=== PATIENT | male | born 1935 | race Caucasian/White ===

== ENCOUNTER 2018-06-09 16:19 | Inpatient (IN) | payer OTHER, MEDICARE ==
--- NOTE | 2018-06-09 17:06 | PDOC ---
Attending Attestation - Resident Resident Name: Елена Riley - ED Attending Attestation I have performed the following: I have examined & evaluated the patient, The case was reviewed & discussed with the resident, I agree w/resident's findings & plan - HPI HPI: 06/09/18 19:10 The patient is a 83 year old male, with a significant past medical history of CHF , COPD , HTN, CAD (s/p stenting x7 and pacemaker), venous insufficiency, and BPH, who presents to the emergency department with, worsening shortness of breath, diffuse edema, cough, and weight gain. Patient describes his cough as wet with associated orthopnea and difficulty sleeping. Patient is compliant with his medications. He denies any recent fevers, chills, headache or dizziness. He denies any recent nausea, vomit, diarrhea or constipation. He denies any recent chest pain. He denies any recent dysuria, frequency, urgency or hematuria. Allergies: NKDA Past surgical history: s/p stenting x7 and pacemaker. TURP, humeral fracture repair. Social History: Nonsmoker. Denies EtOH use and recreational drug use. Primary Care Physician: Dr. Rangel Extractor Filler: Dr. Bey and Dr. Claudio <Aleksandr Barkley - Last Filed: 06/09/18 19:10> - Physicial Exam PE: 06/16/18 10:22 Agree with resident exam. PAtient is tachypneic but is able to speak in complete sentences. + 2 pitting edema bilaterally. - Medical Decision Making 06/16/18 10:23 Pt presents to the ED complaining of shortness of breath and ROSAS despite compliance with diuretics. History of CHF. Most likely CHF exacerbation. Will check labs, treat with diuretics and admit to medicine. 06/16/18 11:56 <Kristin Echevarria - Last Filed: 06/16/18 11:57> Attestations - Attestations 06/09/18 19:11 Documentation prepared by Aleksandr Barkley, acting as medical staff assistant for Kristin Echevarria MD. <Aleksandr Barkley - Last Filed: 06/09/18 19:10>
--- NOTE | 2018-06-09 17:10 | PDOC ---
History of Present Illness - General Chief Complaint: Shortness of Breath Stated Complaint: FLUID RETENTION Time Seen by Provider: 06/09/18 17:02 History Source: Patient Exam Limitations: No Limitations - History of Present Illness Initial Comments: 06/09/18 17:02 This is an 83 YOM with h/o CHF (on Aldactone 25 mg), COPD (no home O2), HTN, CAD (stenting x7 and pacemaker), venous insufficiency, and BPH who p/w worsening SOB, diffuse bodily swelling, weight gain, wet cough, PND, orthopnea, and difficulty sleeping over the past few weeks. He notes that his symptoms have been worsening despite taking his normal Lasix doses adherently. He denies any fainting episodes, headache, vision changes, n/t/w focally, chest pain, abdominal pain, leg pain, or other symptoms. Past History - Past Medical History Allergies/Adverse Reactions: Allergies Allergy/AdvReac Type Severity Reaction Status Date / Time No Known Drug Allergies Allergy Verified 06/09/18 17:31 Home Medications: Ambulatory Orders Atorvastatin Ca [Lipitor] 40 mg PO HS #0 tablet 09/09/12 Docosahexanoic Acid/Epa [Fish Oil Softgel] 1 each PO DAILY #0 capsule 09/09/12 Polyethylene Glycol 3350 [Miralax 255 gm Btl -] 17 gm PO BID #0 btl 09/09/12 Sennosides/Docusate Sodium [Senna-Docusate Sodium Tab] 1 each PO BID #0 tablet 09/09/12 Insulin (Levemir) [Levemir Vial] 20 unit SQ ASDIR 04/29/18 Carvedilol [Coreg -] 6.25 mg PO BID #60 tablet 05/12/18 Doxazosin Mesylate [Cardura -] 8 mg PO HS #60 tablet 05/12/18 Ferrous Sulfate [Feosol] 325 mg PO DAILY ud 05/12/18 Losartan Potassium 50 mg PO DAILY #50 tablet 05/12/18 Rivaroxaban [Xarelto -] 20 mg PO DAILY@1800 #30 tablet 05/12/18 Silver Sulfadiazine 1% Top Cr [Silvadene -] 1 applic TP BID #1 jar 05/12/18 Mag Hydrox/Al Hydrox/Simeth [Mylanta Oral Suspension -] 30 ml PO Q6H PRN cup Furosemide [Lasix -] 40 mg PO DAILY tablet 06/16/18 Insulin Sliding Scale [Novolog Vial Sliding Scale -] 1 vial SQ ACHS units 06/16 Anemia: Yes Asthma: No Cancer: Yes (SKIN CANCER) Cardiac Disorders: Yes CVA: (? TIA) COPD: Yes (CPAP AT NIGHT) CHF: Yes Dementia: No Diabetes: Yes GI Disorders: Yes Disorders: Yes (URINARY RETENTION; BPH) HTN: Yes Hypercholesterolemia: Yes Liver Disease: No Seizures: No Thyroid Disease: No - Surgical History Abdominal Surgery: No Appendectomy: No Cardiac Surgery: Yes (stents) Cholecystectomy: No Lung Surgery: No Neurologic Surgery: No Orthopedic Surgery: Yes (Right knee sx) - Immunization History Td Vaccination: No TDAP Vaccination: No Immunization Up to Date: Yes - Suicide/Smoking/Psychosocial Hx Smoking Status: No Smoking History: Never smoked Years of Tobacco Use: 0 Have you smoked in the past 12 months: No Number of Cigarettes Smoked Daily: 0 Cigars Per Day: 0 Hx Alcohol Use: No Drug/Substance Use Hx: No Substance Use Type: None Hx Substance Use Treatment: No Review of Systems - Review of Systems Able to Perform ROS?: Yes Constitutional: No: Chills, Fever, Unexplained wgt Loss HEENTM: No: Nose Congestion, Throat Pain Respiratory: Yes: Cough, Orthopnea, Shortness of Breath, SOB at Rest, Productive cough Cardiac (ROS): Yes: Edema. No: Chest Pain, Palpitations, Syncope ABD/GI: No: Constipated, Diarrhea, Nausea, Vomiting : No: Burning, Dysuria Musculoskeletal: No: Back Pain, Neck Pain Integumentary: No: Bruising, Rash Neurological: No: Headache, Numbness, Tingling, Weakness, Dizziness Endocrine: No: Unexplained Weight Gain, Unexplained Weight Loss *Physical Exam - Vital Signs Initial Vital Signs Temp Pulse Resp BP Pulse Ox 98.7 F 61 16 127/72 100 06/09/18 16:19 06/09/18 16:19 06/09/18 16:19 06/09/18 16:19 06/09/18 16:19 06/09/18 17:16 GENERAL: nontoxic but uncomfortable appearing 2/2 shortness of breath, nourished , A/Ox4, speaking in <3 word sentences, answers questions appropriately HEENT: PERRLA, EOMI, cataract replacements noted, moist mucous membranes, no posterior pharyngeal erythema, no tonsillar swelling or exudates, no cervical lymphadenopathy NECK: No midline ttp, no spinal stepoff or deformity, full ROM, supple CARDIOVASCULAR: Regular rate and rhythm, normal S1S2, 2/6 systolic ejection murmur, no gallops or rubs, radial and DP pulses 2+ and symmetric, capillary refill <2 seconds, extremities warm and well-perfused, BLE 3+ pitting edema which extends up to the nipple line of the chest wall Chest wall: Normal appearance, no rash, no bruising, no costal stepoff or deformity, nontender to compression, edema as noted in CV section LUNGS/RESPIRATORY: Tachypnea, moderate respiratory distress, symmetric chest movements during respirations, lungs with diffuse crackles bilaterally, no cyanosis, no nail clubbing GI/ABDOMEN: Normal symmetric appearance, normoactive bowel sounds, soft, no tenderness to palpation, no midline pulsatile masses, no palpated organomegaly : No CVA tenderness, normal external appearance, no lesions BACK: No midline ttp or stepoff or deformity of thoracic or lumbar spine EXTREMITIES: distal pulses 2+, warm and well-perfused, 3+ pitting edema BLE SKIN: Warm and dry, no pallor, no jaundice, no bruising, no rash, no skin breakdown, right anterior baker skin tear which is 2x2cm NEUROLOGICAL: GCS 15, CN II-XII grossly intact, ambulating with normal gait, moving all extremities, 5/5 strength proximally and distally, no facial droop, no decreased sensation Heart Score/ECG Review #1 06/09/18 16:57 Ventricular paced rhythm, rate 60, Sgarbossa negative, otherwise unremarkable ED Treatment Course - LABORATORY CBC & Chemistry Diagram: 06/15/18 06:40 06/16/18 10:50 Medical Decision Making - Medical Decision Making Pt with h/o CHF who p/w SOB, cough, orthopnea same as their prior CHF. Initial Vital Signs Temp Pulse Resp BP Pulse Ox 98.7 F 61 16 127/72 100 06/09/18 16:19 06/09/18 16:19 06/09/18 16:19 06/09/18 16:19 06/09/18 16:19 Exam: As noted in Physical Exam section. DDX IBNLT: CHF, pulmonary edema, COPD, asthma, other lung disease, PNA/ bronchitis, anemia, ACS, pericarditis, tamponade, AD, PE, PTX, allergic reaction , malignancy (e.g. causing pericardial effusion or vascular shunt), other infection, pulmonary HTN, etc. W/U ordered: EKG CXR Labs as noted EKG: Reviewed; results as noted in ECG Review section. CXR: No acute change from study done 04/2018. Pacer in place. 06/09/18 19:24 Still awaiting chemistries which are pending in lab. Laboratory Tests 06/09/18 06/09/18 06/09/18 18:15 18:30 18:32 WBC 7.3 RBC 2.60 L Hgb 9.2 L Hct 26.7 L MCV 102.9 H MCH 35.2 H MCHC 34.2 RDW 18.4 H Plt Count 325 MPV 9.2 Absolute Neuts (auto) 6.2 Neutrophils % 85.1 H D Lymphocytes % 3.7 L D Monocytes % 8.7 Eosinophils % 2.0 Basophils % 0.5 Nucleated RBC % 0 PT with INR 20.80 H INR 1.75 H VBG pH POC VBG pCO2 POC VBG pO2 Mixed VBG HCO3 Sodium Potassium Chloride Carbon Dioxide Anion Gap BUN Creatinine Creat Clearance w eGFR Random Glucose Calcium Phosphorus Magnesium Total Bilirubin AST ALT Alkaline Phosphatase Creatine Kinase 525 H Troponin I 0.02 B-Natriuretic Peptide 1755.5 H Total Protein Albumin 06/09/18 06/09/18 18:32 18:32 WBC RBC Hgb Hct MCV MCH MCHC RDW Plt Count MPV Absolute Neuts (auto) Neutrophils % Lymphocytes % Monocytes % Eosinophils % Basophils % Nucleated RBC % PT with INR INR VBG pH 7.36 POC VBG pCO2 35.9 L POC VBG pO2 63.9 H D Mixed VBG HCO3 19.8 Sodium 130 L Potassium 4.6 Chloride 101 Carbon Dioxide 22 Anion Gap 7 L BUN 59 H Creatinine 1.7 H Creat Clearance w eGFR 38.68 Random Glucose 147 H Calcium 8.7 Phosphorus 4.3 Magnesium 2.3 Total Bilirubin 0.5 AST 64 H ALT 42 Alkaline Phosphatase 122 H Creatine Kinase Troponin I B-Natriuretic Peptide Total Protein 6.2 L Albumin 3.5 Vital Signs Temperature 98.7 F 06/09/18 16:19 Pulse Rate 61 06/09/18 18:15 Respiratory Rate 16 06/09/18 16:19 Blood Pressure 127/72 06/09/18 16:19 O2 Sat by Pulse Oximetry (%) 100 06/09/18 18:15 The Pt is unsafe for discharge at this time. They require further hospital observation, workup, and treatment. Pt needs IV meds 2/2 likely bowel edema as PO medications likely less effective. Microblog sent to [facility] for admission. Blank Decision to Admit order is placed per ED protocol. 06/09/18 21:00 I spoke with [facility] resident representative phlebotomy services, in agreement patient admitted to IP Med/Surg. Decision to Admit order corrected with Dr. Larry's name. *DC/Admit/Observation/Transfer Diagnosis at time of Disposition: JENNYFER (acute kidney injury), Cough CHF exacerbation Qualifiers: Heart failure type: combined systolic and diastolic Qualified Code(s): I50.43 - Acute on chronic combined systolic (congestive) and diastolic (congestive) heart failure - Discharge Dispostion Disposition: [facility] Condition at time of disposition: Improved Decision to Admit order: Yes - Referrals - Patient Instructions - Post Discharge Activity
[2018-06-09] MEDS ORDERED: FUROSEMIDE 40 MG/4 ML INJECTABLE VIAL IVPUSH ONE (17:53)
[2018-06-09 18:41] LABS: BASO % 0.5 % (0-2.0); HEMATOCRIT 26.7 % (35.4-49); HEMOGLOBIN 9.2 GM/dL (11.7-16.9); LYMPH % 3.7 % (8-40); MCH 35.2 pg (25.7-33.7); MCHC 34.2 g/dl (32.0-35.9); MEAN CELL VOLUME 102.9 fl (80-96); MEAN PLT VOLUME 9.2 fl (7.5-11.1); MONO % 8.7 % (3.8-10.2); NEUT % 85.1 % (42.8-82.8); PLATELET COUNT 325 K/MM3 (134-434); RDW 18.4 % (11.9-15.9); WHITE BLOOD COUNT 7.3 K/mm3 (4.0-10.0)
[2018-06-09 18:45] LABS: VENOUS PH 7.36 (7.32-7.42)
[2018-06-09 18:46] LABS: VENOUS PC02 35.9 mmHg (38-52); VENOUS PO2 63.9 mmHg (28-48)
[2018-06-09] MEDS ORDERED: FUROSEMIDE 40 MG/4 ML INJECTABLE VIAL ONE (19:02)
[2018-06-09 19:04] LABS: INR 1.75 (0.83-1.09); PROTHROMBIN TIME (PATIENT) 20.8 SEC (9.7-13.0)
[2018-06-09 19:50] LABS: N-TERMINAL BNP 1755.5 pg/ml (5-450)
[2018-06-09 19:51] LABS: ALBUMIN 3.5 g/dl (3.4-5.0); ALK PHOS 122 U/L (45-117); ANION GAP 7 MMOL/L (8-16); BILIRUBIN,TOTAL 0.5 mg/dL (0.2-1); BLOOD UREA NITROGEN 59 mg/dL (7-18); CALCIUM 8.7 mg/dL (8.5-10.1); CHLORIDE 101 mmol/L (98-107); CO2 22 mmol/L (21-32); CREATININE 1.7 mg/dL (0.55-1.3); GLUCOSE,RANDOM 147 mg/dL (74-106); MAGNESIUM 2.3 mg/dL (1.8-2.4); PHOSPHOROUS 4.3 mg/dL (2.5-4.9); POTASSIUM 4.6 mmol/L (3.5-5.1); SGOT/AST 64 U/L (15-37); SGPT/ALT 42 U/L (13-61); SODIUM 130 mmol/L (136-145); TOT PROT 6.2 g/dl (6.4-8.2)
--- NOTE | 2018-06-09 20:20 | PN ---
Teaching Attending Note Name of Resident: Capri Erickson ATTENDING PHYSICIAN STATEMENT I saw and evaluated the patient. I reviewed the resident's note and discussed the case with the resident. I agree with the resident's findings and plan as documented. SUBJECTIVE: Patient is a 83 year old man with a PMH of CHF, COPD , HTN, CAD (s/p stenting x7 and pacemaker), TURP, venous insufficiency, and BPH, who presents to the ER with worsening SOB, diffuse edema, cough, and weight gain. Patient describes his cough as wet with associated orthopnea and difficulty sleeping. Patient is compliant with his medications. He denies any recent fevers, chills, headache or dizziness. He denies any recent nausea, vomit, diarrhea or constipation. He denies any recent chest pain. He denies any recent dysuria, frequency, urgency or hematuria. OBJECTIVE: Alert and confused Vital Signs Period Temp Pulse Resp BP Sys/Kuo Pulse Ox Last 24 Hr 98.7 F 61-61 16 127/72 100-100 HEENT: No Jaundice, eye redness or discharge, PERRLA, EOMI. Edentulous; alopecia ; Normocephalic, atraumatic. External ears are normal and hearing is grossly intact. No nasal discharge. Neck: Supple, nontender. No palpable adenopathy or thyromegaly. No JVD Chest: Good effort. Clear to auscultation and percussion. Heart: Regular. No S3, rub or murmur Abdomen: Not distended, soft, nontender and no HSM. No rebound or guarding. Normoactive bowel sounds. Ext: Peripheral pulses intact. Leg edema with weeping superficial ulcers and islands of erythema from knee to ankle - nontender; left arm edema. Skin: Warm and dry. No petechiae, rash or ecchymosis. Neuro: Alert. Oriented to person. Confused with loosening of association; Sensation grossly intact in all four extremities and DTR are symmetric. Home Medications Medication Instructions Recorded Atorvastatin Ca [Lipitor] 40 mg PO HS #0 tablet 09/09/12 Docosahexanoic Acid/Epa [Fish Oil 1 each PO DAILY #0 capsule 09/09/12 Softgel] Losartan Potassium 100 mg PO DAILY #0 tablet 09/09/12 Polyethylene Glycol 3350 [Miralax 17 gm PO BID #0 btl 09/09/12 255 gm Btl -] Sennosides/Docusate Sodium 1 each PO BID #0 tablet 09/09/12 [Senna-Docusate Sodium Tab] Insulin (Levemir) [Levemir Vial] 22 unit SQ ASDIR 04/29/18 Repaglinide 0.5 mg PO DAILY 04/29/18 Atorvastatin Ca [Lipitor] 40 mg PO HS #30 tablet 05/12/18 Carvedilol [Coreg -] 6.25 mg PO BID #60 tablet 05/12/18 Doxazosin Mesylate [Cardura -] 8 mg PO HS #60 tablet 05/12/18 Ferrous Sulfate [Feosol] 325 mg PO DAILY ud 05/12/18 Furosemide [Lasix -] 20 mg PO DAILY #30 tablet 05/12/18 Losartan Potassium 50 mg PO DAILY #50 tablet 05/12/18 Ranolazine [Ranexa -] 500 mg PO BID #60 tab 05/12/18 Rivaroxaban [Xarelto -] 20 mg PO DAILY@1800 #30 tablet 05/12/18 Silver Sulfadiazine 1% Top Cr 1 applic TP BID #1 jar 05/12/18 [Silvadene -] Spironolactone [Aldactone -] 25 mg PO BID #60 tablet 05/12/18 Abnormal Lab Results 06/09/18 06/09/18 06/09/18 18:15 18:30 18:32 RBC 2.60 L Hgb 9.2 L Hct 26.7 L MCV 102.9 H MCH 35.2 H RDW 18.4 H Neutrophils % 85.1 H D Lymphocytes % 3.7 L D PT with INR 20.80 H INR 1.75 H POC VBG pCO2 POC VBG pO2 Sodium Anion Gap BUN Creatinine Random Glucose AST Alkaline Phosphatase Creatine Kinase 525 H CK-MB (CK-2) 12.7 H B-Natriuretic Peptide 1755.5 H Total Protein 06/09/18 06/09/18 18:32 18:32 RBC Hgb Hct MCV MCH RDW Neutrophils % Lymphocytes % PT with INR INR POC VBG pCO2 35.9 L POC VBG pO2 63.9 H D Sodium 130 L Anion Gap 7 L BUN 59 H Creatinine 1.7 H Random Glucose 147 H AST 64 H Alkaline Phosphatase 122 H Creatine Kinase CK-MB (CK-2) B-Natriuretic Peptide Total Protein 6.2 L ASSESSMENT AND PLAN: 1. CHF exacerbation - No significant change on his CXR. ECHO from 05/02/18 showed LVEF of 40-45%. Patient says he was not taking the diuretics as prescribed. Will treat with IVlasix 60 mg and monitor his response and increase the dose if necessary. Restrict salt intake, get daily weight, doppler scan of left arm, wound care for leg ulcers and continue duoneb and CPAP. Continue Xarelto for Afib; monitor on telemetry and rule out ACS. 2. DM - For now, we will hold the home diabetes drugs and implement sliding scale insulin regimen. Provide comprehensive diabetes care with patient teaching and counseling about the importance of euglycemia, eye care and foot care. 3. CKD? - Etiology unclear. Will consult nephrology and avoid nephrotoxic agents such as NSAIDS, aminoglycosides, contrast dyes and certain Alternative medicine products. 4. Anemia with Macrocytosis - Likely multifactorial. Will do basic anemia work up including Vit B12 and folate levels, serial stool guaiacs, reticulocyte count and iron studies. Would benefit from Procrit therapy once iron replete. 5. DVT prophylaxis - Heparin 5000u sq tid. 6. Advance directives - Full code
--- NOTE | 2018-06-09 22:45 | HP ---
CHIEF COMPLAINT: shortness of breath PCP:Dr. Rangel HISTORY OF PRESENT ILLNESS: Patient is an 83 year old male with past medical history of CHF, COPD, HTN, HLD , CAD (s/p stenting x7 and pacemaker), Atrial Fibrillation, DM, chronic venous insufficiency, BPH and anemia, presented with worsening shortness of breath, diffuse edema, productive cough and weight gain for a few weeks. Patient reports that he has not been taking the medications as prescribed for him at the custodial since he was discharged in May. Patient denies fever, chills, headache, dizziness, abdominal pain, dirrhea or constipation. ER course was notable for: (1)Hgb 9.2 Hct 26.7 (2)BUN 59, Cr 1.7 (3)CK 525, Trop 0.02, BNP 1755.5 (4)Lasix 40mg IV once Recent Travel:denies any recent travel PAST MEDICAL HISTORY: CHF COPD HTN HLD CAD (s/p stenting x7 and pacemaker) Atrial Fibrillation DM chronic venous insufficiency BPH anemia PAST SURGICAL HISTORY: Social History: Smoking:denies smoking Alcohol:occasional EtOH use Drugs: denies illicit drug use Family History: Allergies No Known Drug Allergies Allergy (Verified 06/09/18 17:31) HOME MEDICATIONS: Home Medications Medication Instructions Recorded Atorvastatin Ca [Lipitor] 40 mg PO HS #0 tablet 09/09/12 Docosahexanoic Acid/Epa [Fish Oil 1 each PO DAILY #0 capsule 09/09/12 Softgel] Losartan Potassium 100 mg PO DAILY #0 tablet 09/09/12 Polyethylene Glycol 3350 [Miralax 17 gm PO BID #0 btl 09/09/12 255 gm Btl -] Sennosides/Docusate Sodium 1 each PO BID #0 tablet 09/09/12 [Senna-Docusate Sodium Tab] Insulin (Levemir) [Levemir Vial] 22 unit SQ ASDIR 04/29/18 Repaglinide 0.5 mg PO DAILY 04/29/18 Atorvastatin Ca [Lipitor] 40 mg PO HS #30 tablet 05/12/18 Carvedilol [Coreg -] 6.25 mg PO BID #60 tablet 05/12/18 Doxazosin Mesylate [Cardura -] 8 mg PO HS #60 tablet 05/12/18 Ferrous Sulfate [Feosol] 325 mg PO DAILY ud 05/12/18 Furosemide [Lasix -] 20 mg PO DAILY #30 tablet 05/12/18 Losartan Potassium 50 mg PO DAILY #50 tablet 05/12/18 Ranolazine [Ranexa -] 500 mg PO BID #60 tab 05/12/18 Rivaroxaban [Xarelto -] 20 mg PO DAILY@1800 #30 tablet 05/12/18 Silver Sulfadiazine 1% Top Cr 1 applic TP BID #1 jar 05/12/18 [Silvadene -] Spironolactone [Aldactone -] 25 mg PO BID #60 tablet 05/12/18 REVIEW OF SYSTEMS CONSTITUTIONAL: Absent: fever, chills, diaphoresis, generalized weakness, malaise, loss of appetite, weight change HEENT: Absent: rhinorrhea, nasal congestion, throat pain, throat swelling, difficulty swallowing, mouth swelling, ear pain, eye pain, visual changes CARDIOVASCULAR: Absent: chest pain, syncope, palpitations, irregular heart rate, lightheadedness , peripheral edema RESPIRATORY: cough, shortness of breath,orthopnea Absent: wheezing, stridor, hemoptysis, dyspnea with exertion GASTROINTESTINAL: abdominal distension Absent: abdominal pain,nausea, vomiting, diarrhea, constipation, melena, hematochezia GENITOURINARY: Absent: dysuria, frequency, urgency, hesitancy, hematuria, flank pain, genital pain MUSCULOSKELETAL: Absent: myalgia, arthralgia, joint swelling, back pain, neck pain SKIN: Absent: rash, itching, pallor HEMATOLOGIC/IMMUNOLOGIC: Absent: easy bleeding, easy bruising, lymphadenopathy, frequent infections ENDOCRINE: Absent: unexplained weight gain, unexplained weight loss, heat intolerance, cold intolerance NEUROLOGIC: Absent: headache, focal weakness or paresthesias, dizziness, unsteady gait, seizure, mental status changes, bladder or bowel incontinence PSYCHIATRIC: Absent: anxiety, depression, suicidal or homicidal ideation, hallucinations. PHYSICAL EXAMINATION Vital Signs - 24 hr 06/09/18 06/09/18 06/09/18 16:19 17:50 18:15 Temperature 98.7 F Pulse Rate 61 61 Respiratory 16 Rate Blood Pressure 127/72 O2 Sat by Pulse 100 100 100 Oximetry (%) 06/09/18 22:22 Temperature Pulse Rate Respiratory Rate Blood Pressure O2 Sat by Pulse 98 Oximetry (%) GENERAL: Awake, alert, and fully oriented, in no acute distress. HEAD: Normal with no signs of trauma. EYES: PERRLA, EOMI, sclera anicteric, conjunctiva clear. No lid lag. EARS, NOSE, THROAT: Ears normal, nares patent, oropharynx clear without exudates. Moist mucous membranes. NECK: Normal range of motion, supple without lymphadenopathy, JVD, or masses. LUNGS: Breath sounds equal, clear to auscultation bilaterally. No wheezes, and no crackles. No accessory muscle use. HEART: Regular rate and rhythm, normal S1 and S2 without murmur, rub or gallop. ABDOMEN: Soft, nontender, mildly distended, normoactive bowel sounds, no guarding, no rebound, no masses. MUSCULOSKELETAL: Normal range of motion at all joints. No bony deformities or tenderness. No CVA tenderness. UPPER EXTREMITIES: 2+ pulses, warm, well-perfused. No cyanosis. No clubbing. No peripheral edema. LOWER EXTREMITIES: 2+ pulses, warm, well-perfused. No calf tenderness. +2 bilateral pitting edema. +erythema on both lower legs with weeping. NEUROLOGICAL: Cranial nerves II-XII intact. Normal speech. Gait not observed. PSYCHIATRIC: Cooperative. Good eye contact. Appropriate mood and affect. SKIN: Warm, dry, normal turgor, no rashes or lesions noted, normal capillary refill. Laboratory Results - last 24 hr 06/09/18 06/09/18 06/09/18 18:15 18:30 18:32 WBC 7.3 RBC 2.60 L Hgb 9.2 L Hct 26.7 L MCV 102.9 H MCH 35.2 H MCHC 34.2 RDW 18.4 H Plt Count 325 MPV 9.2 Absolute Neuts (auto) 6.2 Neutrophils % 85.1 H D Lymphocytes % 3.7 L D Monocytes % 8.7 Eosinophils % 2.0 Basophils % 0.5 Nucleated RBC % 0 PT with INR 20.80 H INR 1.75 H VBG pH POC VBG pCO2 POC VBG pO2 Mixed VBG HCO3 Sodium Potassium Chloride Carbon Dioxide Anion Gap BUN Creatinine Creat Clearance w eGFR Random Glucose Calcium Phosphorus Magnesium Total Bilirubin AST ALT Alkaline Phosphatase Creatine Kinase 525 H Creatine Kinase Index 2.4 CK-MB (CK-2) 12.7 H Troponin I 0.02 B-Natriuretic Peptide 1755.5 H Total Protein Albumin 06/09/18 06/09/18 18:32 18:32 WBC RBC Hgb Hct MCV MCH MCHC RDW Plt Count MPV Absolute Neuts (auto) Neutrophils % Lymphocytes % Monocytes % Eosinophils % Basophils % Nucleated RBC % PT with INR INR VBG pH 7.36 POC VBG pCO2 35.9 L POC VBG pO2 63.9 H D Mixed VBG HCO3 19.8 Sodium 130 L Potassium 4.6 Chloride 101 Carbon Dioxide 22 Anion Gap 7 L BUN 59 H Creatinine 1.7 H Creat Clearance w eGFR 38.68 Random Glucose 147 H Calcium 8.7 Phosphorus 4.3 Magnesium 2.3 Total Bilirubin 0.5 AST 64 H ALT 42 Alkaline Phosphatase 122 H Creatine Kinase Creatine Kinase Index CK-MB (CK-2) Troponin I B-Natriuretic Peptide Total Protein 6.2 L Albumin 3.5 ASSESSMENT/PLAN: Patient is an 83 year old male with past medical history of CHF, COPD, HTN, HLD , CAD (s/p stenting x7 and pacemaker), DM, chronic venous insufficiency, BPH, Skin cancer and anemia, presented with worsening shortness of breath, diffuse edema, productive cough and weight gain for a few weeks. #SOB, leg swelling, weight gain: likely 2/2 CHF exacerbation -IV Lasix 60mg daily -Monitor I&O -Daily weights -Resume Aldactone 25mg BID #JENNYFER on CKD -Nephrology consulted. -Avoid nephrotoxic agents such as NSAIDs, aminoglycosides, and contrast dyes #Anemia -will do basic anemia workup -VitB12, Folate, FOBT, Retic count, iron studies #DM -Resume Levemir 22units HS -BGM ACHS -ISS ACHS #Hypertension -Continue Coreg 6.25 BID, Losartan 50mg daily #Hyperlipidemia -continue Atovastatin 40mg HS #CAD s/p stenting x7 and pacemaker -continue Lipitor 40, Ranexa 500 mg BID #Atrial fibrillation -Continue Xarelto 20mg BID #BPH -resume Cardura 8mg #FEN -Not on any standing fluids -Hyponatremia, will monitor bmp -diabetic/sodium restricted diet #Prophylaxis -on Xarelto 20mg, will verify -SCDs, TEDs #Disposition -full code -admit to med surg Visit type - Emergency Visit Emergency Visit: Yes ED Registration Date: 06/09/18 Care time: The patient presented to the Emergency Department on the above date and was hospitalized for further evaluation of their emergent condition. - New Patient This patient is new to me today: Yes Date on this admission: 06/10/18 - Critical Care Critical Care patient: No
[2018-06-10] MEDS: INSULIN SLIDING SCALE (NOVOLOG) 1 VIAL SQ SCH ×4 (06:04→22:17)
[2018-06-10] MEDS: REPAGLINIDE 0.5 MG TABLET (FP) PO SCH ×2 (06:06→06:09)
[2018-06-10 07:59] LABS: BASO % 0.7 % (0-2.0); EOS % 3.7 % (0-4.5); HEMATOCRIT 25.4 % (35.4-49); HEMOGLOBIN 8.5 GM/dL (11.7-16.9); LYMPH % 4.8 % (8-40); MCH 34.7 pg (25.7-33.7); MCHC 33.7 g/dl (32.0-35.9); MEAN CELL VOLUME 103.2 fl (80-96); MEAN PLT VOLUME 8.9 fl (7.5-11.1); MONO % 8.4 % (3.8-10.2); NEUT % 82.4 % (42.8-82.8); PLATELET COUNT 288 K/MM3 (134-434); RBC 2.46 M/mm3 (4.00-5.60); RDW 17.9 % (11.9-15.9); WHITE BLOOD COUNT 6.8 K/mm3 (4.0-10.0)
[2018-06-10] MEDS ORDERED: PNEUMOC 13-VAL CONJ-DIP CRM/PF 0.5 ML DISP.SYRIN IM ONE (09:00)
[2018-06-10 09:02] LABS: ALBUMIN 3.2 g/dl (3.4-5.0); ALK PHOS 108 U/L (45-117); ANION GAP 9 MMOL/L (8-16); BILIRUBIN,TOTAL 0.6 mg/dL (0.2-1); BLOOD UREA NITROGEN 61 mg/dL (7-18); CALCIUM 8.3 mg/dL (8.5-10.1); CHLORIDE 101 mmol/L (98-107); CO2 22 mmol/L (21-32); CREATININE 1.5 mg/dL (0.55-1.3); GLUCOSE,RANDOM 130 mg/dL (74-106); MAGNESIUM 2.5 mg/dL (1.8-2.4); PHOSPHOROUS 4.1 mg/dL (2.5-4.9); POTASSIUM 4.7 mmol/L (3.5-5.1); SGOT/AST 57 U/L (15-37); SGPT/ALT 36 U/L (13-61); SODIUM 131 mmol/L (136-145); TOT PROT 5.9 g/dl (6.4-8.2)
[2018-06-10] MEDS ORDERED: FLU VACCINE QUAD 60 MCG/0.5 ML (MDV 18-19) IM ONE (09:30)
[2018-06-10] MEDS ORDERED: SILVER SULFADIAZINE 1% TOP CREAM 400 GM JAR TP SCH (10:00)
[2018-06-10] MEDS ORDERED: CARVEDILOL 6.25 MG TABLET (FP) PO SCH (10:00)
[2018-06-10] MEDS: POLYETHYLENE GLYCOL 3350 255 GM BTL PO SCH ×2 (12:00→22:17)
[2018-06-10] MEDS: RANOLAZINE E.R. 500 MG TABLET (FP) PO SCH ×2 (12:13→21:43)
[2018-06-10] MEDS: FUROSEMIDE 40 MG/4 ML INJECTABLE VIAL IVPUSH SCH (12:14)
[2018-06-10] MEDS: FERROUS SO4 325 MG TABLET (FP) PO SCH (12:14)
[2018-06-10] MEDS: SENNOSIDES/DOCUSATE COMBO (SENNA PLUS) TABLET (UD) PO SCH ×2 (12:14→21:44)
[2018-06-10] MEDS: LOSARTAN POTASSIUM 50 MG TABLET (FP) PO SCH (12:14)
[2018-06-10] MEDS: SPIRONOLACTONE 25 MG TABLET (FP) PO SCH ×2 (12:15→21:44)
[2018-06-10] MEDS: OMEGA-3 ACID ETHYL ESTERS (FATTY-ACIDS) 1 GM CAPSULE (FP) PO SCH (12:16)
--- NOTE | 2018-06-10 12:49 | PN ---
Progress Note (short form) - Note Progress Note: c/o heartburn. states breathing is better but is still difficult to breathe. denies Cp, SOB, fever, chills, N/V/C/D, orthopnea Current Medications Generic Name Dose Route Start Last Admin Trade Name Ethan PRN Reason Stop Dose Admin Atorvastatin Calcium 40 mg 06/10/18 22:00 Lipitor - PO HS AYDIN Carvedilol 6.25 mg 06/10/18 10:00 06/10/18 12:14 Coreg - PO 6.25 mg BID AYDIN Administration Doxazosin Mesylate 8 mg 06/10/18 22:00 Cardura - PO HS AYDIN Ferrous Sulfate 325 mg 06/10/18 10:00 06/10/18 12:14 Feosol - PO 325 mg DAILY AYDIN Administration Furosemide 60 mg 06/10/18 10:00 06/10/18 12:14 Lasix Injection - IVPUSH 60 mg DAILY AYDIN Administration Insulin Aspart 1 vial 06/10/18 07:00 06/10/18 12:12 Novolog Vial Sliding Scale - SQ 2 units ACHS AYDIN Administration Protocol Insulin Detemir 22 units 06/10/18 22:00 Levemir Vial SQ HS AYDIN Losartan Potassium 50 mg 06/10/18 10:00 06/10/18 12:14 Cozaar - PO 50 mg DAILY AYDIN Administration Hvmch-2-Btgl Ethyl Esters 1 gm 06/10/18 10:00 06/10/18 12:16 Lovaza - PO 1 gm DAILY AYDIN Administration Polyethylene Glycol 17 gm 06/10/18 10:00 Miralax (For Bowel Prep) - PO BID [facility] Ranolazine 500 mg 06/10/18 10:00 06/10/18 12:13 Ranexa - PO 500 mg BID AYDIN Administration Repaglinide 0.5 mg 06/10/18 07:00 06/10/18 06:09 Prandin - PO 0.5 mg DAILY@0700 AYDIN Administration Rivaroxaban 20 mg 06/10/18 18:00 Xarelto - PO DAILY@1800 [facility] Senna/Docusate Sodium 1 tablet 06/10/18 10:00 06/10/18 12:14 Pericolace - PO 1 tablet BID AYDIN Administration Silver Sulfadiazine 1 applic 06/10/18 10:00 Silvadene - TP BID [facility] Spironolactone 25 mg 06/10/18 10:00 06/10/18 12:15 Aldactone - PO 25 mg BID AYDIN Administration Last Vital Signs Temp Pulse Resp BP Pulse Ox 97.6 F 62 18 128/68 98 06/10/18 06:00 06/10/18 12:00 06/10/18 12:00 06/10/18 12:00 06/10/18 02:02 Intake & Output 06/07/18 06/08/18 06/09/18 06/10/18 23:59 23:59 23:59 23:59 Intake Total 200 Balance 200 Weight 167 lb 166 lb 2 oz General NAD CV S1 S2 irregular Lungs decreased breath sounds B/L bases ABdomen soft NT/ND Extremities 1+ pitting edema B/L LE CBCD WBC 6.8 K/mm3 (4.0-10.0) 06/10/18 06:15 RBC 2.46 M/mm3 (4.00-5.60) L 06/10/18 06:15 Hgb 8.5 GM/dL (11.7-16.9) L 06/10/18 06:15 Hct 25.4 % (35.4-49) L 06/10/18 06:15 MCV 103.2 fl (80-96) H 06/10/18 06:15 MCHC 33.7 g/dl (32.0-35.9) 06/10/18 06:15 RDW 17.9 % (11.9-15.9) H 06/10/18 06:15 Plt Count 288 K/MM3 (134-434) 06/10/18 06:15 MPV 8.9 fl (7.5-11.1) 06/10/18 06:15 CMP Sodium 131 mmol/L (136-145) L 06/10/18 06:15 Potassium 4.7 mmol/L (3.5-5.1) 06/10/18 06:15 Chloride 101 mmol/L (98-107) 06/10/18 06:15 Carbon Dioxide 22 mmol/L (21-32) 06/10/18 06:15 Anion Gap 9 MMOL/L (8-16) 06/10/18 06:15 BUN 61 mg/dL (7-18) H 06/10/18 06:15 Creatinine 1.5 mg/dL (0.55-1.3) H 06/10/18 06:15 Creat Clearance w eGFR 44.69 (>60) 06/10/18 06:15 Calcium 8.3 mg/dL (8.5-10.1) L 06/10/18 06:15 Total Bilirubin 0.6 mg/dL (0.2-1) 06/10/18 06:15 AST 57 U/L (15-37) H 06/10/18 06:15 ALT 36 U/L (13-61) 06/10/18 06:15 Alkaline Phosphatase 108 U/L (45-117) 06/10/18 06:15 Total Protein 5.9 g/dl (6.4-8.2) L 06/10/18 06:15 Albumin 3.2 g/dl (3.4-5.0) L 06/10/18 06:15 A/P 83yo M with PMH systolic CHF, COPD not on home O2, WILLIS on cpap, CAD s/p stents, HTN, S/p PPM, BPH s/p TURP, afib on xarelto presented to the Er wtih progressively worsening SOB with cough and orthopnea and found to be in acute on chronic systolic CHF 1. Acute on Chronic Systolic CHF-no significant change in weight. cont lasix 60mg, aldactone, coreg, statin. daily weight. monitor electrolytes. recent echo noted. no indication to repeat it at this time 2. Dyspepsia- start mylanta prn 3. JENNYFER- likely pre-renal. slowly improving. cont diuresis. avoid nephrotoxic agents 4. COPD- no sign of acute exacerbation 5. CAD s/p stents- cont ranexa/asa 6. HTN- controlled. cont home regimen 7. DM- cont levemir, iss, bgm 8. S/p PPM 9. BPH s/p TURP 10. Afib on xarelto- rate controlled. on xarelto 11. DVT ppx- xarelto Visit type - Emergency Visit Emergency Visit: Yes ED Registration Date: 06/09/18 Care time: The patient presented to the Emergency Department on the above date and was hospitalized for further evaluation of their emergent condition. - New Patient This patient is new to me today: Yes Date on this admission: 06/09/18 - Critical Care Critical Care patient: No - Discharge Referral Referred to [facility] Med P.C.: No
[2018-06-10] MEDS ORDERED: PT OWN MED DRAWER 7, Y5N ONE (15:52)
[2018-06-10] MEDS: MAG HYDROX/AL HYDROX/SIMETH 30 ML UNIT-DOSE CUP PO PRN (15:54)
[2018-06-10] MEDS: RIVAROXABAN 20 MG TABLET PO SCH (17:05)
--- NOTE | 2018-06-10 17:05 | EKG ---
Test Reason : Blood Pressure : / mmHG Vent. Rate : 060 BPM Atrial Rate : 064 BPM P-R Int : 000 ms QRS Dur : 162 ms QT Int : 544 ms P-R-T Axes : 000 266 134 degrees QTc Int : 544 ms UNDERLYING RHYTHM APPEARS TO BE ATYPICAL ATRIAL FLUTTER WITH Ventricular-paced rhythm ABNORMAL ECG WHEN COMPARED WITH ECG OF 29-APR-2018 07:47, NO SIGNIFICANT CHANGE WAS FOUND Confirmed by PITA ARANDA, TOM ([id number] on 06/10/2018 5:05:32 PM Referred By: Confirmed By:TOM LEMA MD
[2018-06-10] MEDS: CARVEDILOL 6.25 MG TABLET (FP) PO SCH (20:15)
[2018-06-10] MEDS: ATORVASTATIN CA 40 MG TABLET (FP) PO SCH (21:44)
[2018-06-10] MEDS: SILVER SULFADIAZINE 1% TOP CREAM 400 GM JAR TP SCH (21:45)
[2018-06-10 21:59] LABS: URINE APPEARANCE CLEAR; URINE BILIRUBIN NEGATIVE (<2.0 mg/dL); URINE COLOR LTYELLOW; URINE GLUCOSE (UA) NEGATIVE (NEGATIVE); URINE KETONE NEGATIVE (NEGATIVE); URINE LEUK ESTERASE NEGATIVE (NEGATIVE); URINE NITRITE NEGATIVE (NEGATIVE); URINE PROTEIN NEGATIVE (NEGATIVE); URINE UROBILINOGEN NEGATIVE mg/dL (0.2-1.0)
[2018-06-10] MEDS: INSULIN (LEVEMIR) 100 UNITS/ML UNITS SQ SCH (22:16)
[2018-06-10] MEDS: DOXAZOSIN MESYLATE 4 MG TABLET PO SCH (22:56)
[2018-06-11] MEDS: INSULIN SLIDING SCALE (NOVOLOG) 1 VIAL SQ SCH ×4 (06:13→21:32)
[2018-06-11] MEDS: REPAGLINIDE 0.5 MG TABLET (FP) PO SCH (06:14)
[2018-06-11 06:36] LABS: SERUM IRON SATURATION 9 % (15-55); TOTAL IRON BINDING CAPACITY 278 ug/dL (250-450); UIBC 254 ug/dL (111-343)
[2018-06-11 06:55] LABS: HEMATOCRIT 25.1 % (35.4-49); HEMOGLOBIN 8.4 GM/dL (11.7-16.9); MCH 34.8 pg (25.7-33.7); MCHC 33.5 g/dl (32.0-35.9); MEAN CELL VOLUME 103.9 fl (80-96); MEAN PLT VOLUME 8.7 fl (7.5-11.1); PLATELET COUNT 283 K/MM3 (134-434); RBC 2.42 M/mm3 (4.00-5.60); RDW 18.4 % (11.9-15.9); WHITE BLOOD COUNT 5.8 K/mm3 (4.0-10.0)
[2018-06-11 08:03] LABS: ANION GAP 5 MMOL/L (8-16); BLOOD UREA NITROGEN 55 mg/dL (7-18); CALCIUM 8.6 mg/dL (8.5-10.1); CHLORIDE 106 mmol/L (98-107); CO2 24 mmol/L (21-32); CREATININE 1.2 mg/dL (0.55-1.3); GLUCOSE,RANDOM 60 mg/dL (74-106); SODIUM 135 mmol/L (136-145)
[2018-06-11] MEDS ORDERED: PT OWN MED DRAWER 7, Y5N ONE (08:46)
[2018-06-11] MEDS: CARVEDILOL 6.25 MG TABLET (FP) PO SCH ×2 (09:00→19:41)
[2018-06-11] MEDS: OMEGA-3 ACID ETHYL ESTERS (FATTY-ACIDS) 1 GM CAPSULE (FP) PO SCH (09:04)
[2018-06-11] MEDS: RANOLAZINE E.R. 500 MG TABLET (FP) PO SCH ×2 (09:04→21:21)
[2018-06-11] MEDS: FERROUS SO4 325 MG TABLET (FP) PO SCH (09:04)
[2018-06-11] MEDS: POLYETHYLENE GLYCOL 3350 255 GM BTL PO SCH ×2 (09:04→21:21)
[2018-06-11] MEDS: SENNOSIDES/DOCUSATE COMBO (SENNA PLUS) TABLET (UD) PO SCH ×2 (09:04→21:20)
[2018-06-11] MEDS: SPIRONOLACTONE 25 MG TABLET (FP) PO SCH ×2 (10:49→21:21)
[2018-06-11] MEDS: LOSARTAN POTASSIUM 50 MG TABLET (FP) PO SCH (10:50)
[2018-06-11] MEDS: FUROSEMIDE 40 MG/4 ML INJECTABLE VIAL IVPUSH SCH (10:50)
[2018-06-11] MEDS ORDERED: INSULIN (NOVOLOG) ASPART 100 UNITS/ML 10ML VIAL ONE (10:59)
[2018-06-11] MEDS: MAG HYDROX/AL HYDROX/SIMETH 30 ML UNIT-DOSE CUP PO PRN (11:13)
--- NOTE | 2018-06-11 15:08 | PN ---
Teaching Attending Note Name of Resident: Elijah Petersen ATTENDING PHYSICIAN STATEMENT I saw and evaluated the patient. I reviewed the resident's note and discussed the case with the resident. I agree with the resident's findings and plan as documented. SUBJECTIVE:remains dyspnic at rest. denie CP, SOB, fever, chills, N/V/C/D OBJECTIVE: Last Vital Signs Temp Pulse Resp BP Pulse Ox 97.5 F L 6 L 21 H 109/51 L 97 06/11/18 14:46 06/11/18 14:46 06/11/18 14:46 06/11/18 14:46 06/10/18 23:15 Intake & Output 06/08/18 06/09/18 06/10/18 06/11/18 23:59 23:59 23:59 23:59 Intake Total 600 Output Total 1150 1100 Balance -550 -1100 Weight 167 lb 166 lb 2 oz 196 lb 0.7 oz General NAD Lungs decreased breath sounds B/L bases extremities 1+ pitting edema B/L LE ASSESSMENT AND PLAN: 83yo M with PMH systolic CHF, COPD not on home O2, WILLIS on cpap, CAD s/p stents , HTN, S/p PPM, BPH s/p TURP, afib on xarelto presented to the Er wtih progressively worsening SOB with cough and orthopnea and found to be in acute on chronic systolic CHF 1. Acute on Chronic Systolic CHF- weight increased dramatically from yesterday however this may be more accurate weight as more consistent with previous weights. weight at last discharge was 192. will cont lasix 60mg IV daily and monitor. hard to assess from patient how much is improved as he goes on long tangential stories. no significant change in weight. cont lasix 60mg, aldactone , coreg, statin. daily weight. monitor electrolytes. recent echo noted. no indication to repeat it at this time 2. Dyspepsia- start mylanta prn 3. JENNYFER- likely pre-renal. slowly improving. cont diuresis. avoid nephrotoxic agents 4. COPD- no sign of acute exacerbation 5. CAD s/p stents- cont ranexa/asa 6. HTN- controlled. cont home regimen 7. DM- cont levemir, iss, bgm 8. S/p PPM 9. BPH s/p TURP 10. Afib on xarelto- rate controlled. on xarelto 11. DVT ppx- xarelto
[2018-06-11] MEDS: SILVER SULFADIAZINE 1% TOP CREAM 400 GM JAR TP SCH ×2 (15:31→21:22)
--- NOTE | 2018-06-11 15:54 | PN ---
Physical Exam: SUBJECTIVE: Patient seen and examined at bedside. denies cp, n/v/d/f/c. Still complains of same amount of peripheral edema, more in L arm than R arm and in both legs OBJECTIVE: Vital Signs Period Temp Pulse Resp BP Sys/Kuo Pulse Ox Last 24 Hr 97.4 F-98 F 6-72 17-21 100-153/51-76 97-97 GENERAL: A&Ox2, no acute distress EYES: PERRLA, EOMI ENT: Moist mucus membranes NECK: No JVD noted LUNGS: overall lungs are clear with minimal sporadic crackles HEART: systolic murmur noted on exam, no murmurs ABDOMEN: Soft, nontender, BS present MUSCULOSKELETAL: No CVA Tenderness EXTREMITIES: 2+ pulses, 2+ pitting/weeping edema b/l lower extremities and L arm Laboratory Results - last 24 hr 06/10/18 06/10/18 06/10/18 06:15 06:15 16:06 WBC RBC Hgb Hct MCV MCH MCHC RDW Plt Count MPV Sodium 131 L Potassium 4.7 Chloride 101 Carbon Dioxide 22 Anion Gap 9 BUN 61 H Creatinine 1.5 H Creat Clearance w eGFR 44.69 POC Glucometer 223 Random Glucose 130 H Calcium 8.3 L Phosphorus 4.1 Magnesium 2.5 H Iron 24 L TIBC 278 Iron Saturation 9 L Total Bilirubin 0.6 AST 57 H ALT 36 Alkaline Phosphatase 108 Creatine Kinase 328 H Creatine Kinase Index 3.0 CK-MB (CK-2) 9.9 H Troponin I 0.03 Total Protein 5.9 L Albumin 3.2 L Serum Folate 18 H Urine Color Urine Appearance Urine pH Ur Specific Pearson Urine Protein Urine Glucose (UA) Urine Ketones Urine Blood Urine Nitrite Urine Bilirubin Urine Urobilinogen Ur Leukocyte Esterase 06/10/18 06/10/18 06/11/18 21:20 22:12 05:31 WBC RBC Hgb Hct MCV MCH MCHC RDW Plt Count MPV Sodium Potassium Chloride Carbon Dioxide Anion Gap BUN Creatinine Creat Clearance w eGFR POC Glucometer 222 86 Random Glucose Calcium Phosphorus Magnesium Iron TIBC Iron Saturation Total Bilirubin AST ALT Alkaline Phosphatase Creatine Kinase Creatine Kinase Index CK-MB (CK-2) Troponin I Total Protein Albumin Serum Folate Urine Color Ltyellow Urine Appearance Clear Urine pH 5.0 D Ur Specific Pearson 1.010 Urine Protein Negative Urine Glucose (UA) Negative Urine Ketones Negative Urine Blood Negative Urine Nitrite Negative Urine Bilirubin Negative Urine Urobilinogen Negative Ur Leukocyte Esterase Negative 06/11/18 06/11/18 06/11/18 06:00 06:00 11:14 WBC 5.8 RBC 2.42 L Hgb 8.4 L Hct 25.1 L MCV 103.9 H MCH 34.8 H MCHC 33.5 RDW 18.4 H Plt Count 283 MPV 8.7 Sodium 135 L Potassium 5.0 Chloride 106 Carbon Dioxide 24 Anion Gap 5 L BUN 55 H Creatinine 1.2 Creat Clearance w eGFR 57.82 POC Glucometer 151 Random Glucose 60 L Calcium 8.6 Phosphorus Magnesium Iron TIBC Iron Saturation Total Bilirubin AST ALT Alkaline Phosphatase Creatine Kinase Creatine Kinase Index CK-MB (CK-2) Troponin I Total Protein Albumin Serum Folate Urine Color Urine Appearance Urine pH Ur Specific Pearson Urine Protein Urine Glucose (UA) Urine Ketones Urine Blood Urine Nitrite Urine Bilirubin Urine Urobilinogen Ur Leukocyte Esterase Active Medications Generic Name Dose Route Start Last Admin Trade Name Freq PRN Reason Stop Dose Admin Al Hydroxide/Mg Hydroxide 30 ml 06/10/18 15:01 06/11/18 11:13 Mylanta Oral Suspension - PO 30 ml Q6H PRN Administration DYSPEPSIA Atorvastatin Calcium 40 mg 06/10/18 22:00 06/10/18 21:44 Lipitor - PO 40 mg HS AYDIN Administration Carvedilol 6.25 mg 06/10/18 13:21 06/11/18 09:00 Coreg - PO 6.25 mg BID@0800,2000 AYDIN Administration Doxazosin Mesylate 8 mg 06/10/18 22:00 06/10/18 22:56 Cardura - PO 8 mg HS AYDIN Administration Ferrous Sulfate 325 mg 06/10/18 10:00 06/11/18 09:04 Feosol - PO 325 mg DAILY AYDIN Administration Furosemide 60 mg 06/10/18 10:00 06/11/18 10:50 Lasix Injection - IVPUSH 60 mg DAILY AYDIN Administration Insulin Aspart 1 vial 06/10/18 07:00 06/11/18 11:15 Novolog Vial Sliding Scale - SQ Not Given ACHS [facility] Protocol Insulin Detemir 22 units 06/10/18 22:00 06/10/18 22:16 Levemir Vial SQ 22 units HS AYDIN Administration Losartan Potassium 50 mg 06/10/18 10:00 06/11/18 10:50 Cozaar - PO 50 mg DAILY AYDIN Administration Qxjwo-8-Clrw Ethyl Esters 1 gm 06/10/18 10:00 06/11/18 09:04 Lovaza - PO 1 gm DAILY AYDIN Administration Polyethylene Glycol 17 gm 06/10/18 10:00 06/11/18 09:04 Miralax (For Bowel Prep) - PO 17 gm BID AYDIN Administration Ranolazine 500 mg 06/10/18 10:00 06/11/18 09:04 Ranexa - PO 500 mg BID AYDIN Administration Repaglinide 0.5 mg 06/10/18 07:00 06/11/18 06:14 Prandin - PO 0.5 mg DAILY@0700 AYDIN Administration Rivaroxaban 20 mg 06/10/18 18:00 06/10/18 17:05 Xarelto - PO 20 mg DAILY@1800 AYDIN Administration Senna/Docusate Sodium 1 tablet 06/10/18 10:00 06/11/18 09:04 Pericolace - PO 1 tablet BID AYDIN Administration Silver Sulfadiazine 1 applic 06/10/18 15:50 06/10/18 21:45 Silvadene - TP 1 applic BID AYDIN Administration Spironolactone 25 mg 06/10/18 10:00 06/11/18 10:49 Aldactone - PO 25 mg BID AYDIN Administration ASSESSMENT/PLAN: Patient is an 83 year old male with past medical history of CHF, COPD, HTN, HLD , CAD (s/p stenting x7 and pacemaker), DM, chronic venous insufficiency, BPH, Skin cancer and anemia, presented with worsening shortness of breath, diffuse edema, productive cough and weight gain for a few weeks. #CHF Exacerbation: not yet improving, still edematous -continue IV Lasix 60mg daily -Monitor I&O -Daily weights -continue Aldactone 25mg BID #JENNYFER on CKD: improved, creatinine normal -Nephrology consulted. -Avoid nephrotoxic agents such as NSAIDs, aminoglycosides, and contrast dyes #Anemia -anemia workup pending #DM -Resume Levemir 22units HS -BGM ACHS -ISS ACHS #Hypertension -Continue Coreg 6.25 BID, Losartan 50mg daily #Hyperlipidemia -continue Atovastatin 40mg HS #CAD s/p stenting x7 and pacemaker -continue Lipitor 40, Ranexa 500 mg BID #Atrial fibrillation -Continue Xarelto 20mg BID #BPH -resume doxazosin #FEN -Not on any standing fluids -Hyponatremia, will monitor bmp -diabetic/sodium restricted diet #Prophylaxis -on Xarelto 20mg, will verify -SCDs, TEDs #Disposition -full code -admit to med surg Visit type - Emergency Visit Emergency Visit: Yes ED Registration Date: 06/09/18 Care time: The patient presented to the Emergency Department on the above date and was hospitalized for further evaluation of their emergent condition. - New Patient This patient is new to me today: Yes Date on this admission: 06/11/18 - Critical Care Critical Care patient: No
[2018-06-11] MEDS: RIVAROXABAN 20 MG TABLET PO SCH (17:28)
[2018-06-11] MEDS: DOXAZOSIN MESYLATE 4 MG TABLET PO SCH (21:21)
[2018-06-11] MEDS: ATORVASTATIN CA 40 MG TABLET (FP) PO SCH (21:21)
[2018-06-11] MEDS: INSULIN (LEVEMIR) 100 UNITS/ML UNITS SQ SCH (21:32)
[2018-06-12] MEDS: INSULIN SLIDING SCALE (NOVOLOG) 1 VIAL SQ SCH ×4 (06:05→22:14)
[2018-06-12] MEDS: REPAGLINIDE 0.5 MG TABLET (FP) PO SCH (06:15)
[2018-06-12 08:09] LABS: HEMATOCRIT 26.7 % (35.4-49); HEMOGLOBIN 8.8 GM/dL (11.7-16.9); MCH 34.4 pg (25.7-33.7); MCHC 32.8 g/dl (32.0-35.9); MEAN CELL VOLUME 104.7 fl (80-96); MEAN PLT VOLUME 8.8 fl (7.5-11.1); PLATELET COUNT 314 K/MM3 (134-434); RBC 2.55 M/mm3 (4.00-5.60); WHITE BLOOD COUNT 5.7 K/mm3 (4.0-10.0)
[2018-06-12 08:22] LABS: ANION GAP 4 MMOL/L (8-16); BLOOD UREA NITROGEN 51 mg/dL (7-18); CALCIUM 8.7 mg/dL (8.5-10.1); CHLORIDE 103 mmol/L (98-107); CO2 29 mmol/L (21-32); CREATININE 1.2 mg/dL (0.55-1.3); GLUCOSE,RANDOM 69 mg/dL (74-106); POTASSIUM 5.5 mmol/L (3.5-5.1); SODIUM 136 mmol/L (136-145)
[2018-06-12] MEDS: CARVEDILOL 6.25 MG TABLET (FP) PO SCH ×2 (08:57→22:00)
[2018-06-12] MEDS: RANOLAZINE E.R. 500 MG TABLET (FP) PO SCH ×2 (11:07→22:04)
[2018-06-12] MEDS: SENNOSIDES/DOCUSATE COMBO (SENNA PLUS) TABLET (UD) PO SCH ×2 (11:11→22:01)
[2018-06-12] MEDS: OMEGA-3 ACID ETHYL ESTERS (FATTY-ACIDS) 1 GM CAPSULE (FP) PO SCH (11:11)
[2018-06-12] MEDS: FERROUS SO4 325 MG TABLET (FP) PO SCH (11:11)
[2018-06-12] MEDS: SPIRONOLACTONE 25 MG TABLET (FP) PO SCH ×2 (11:12→22:01)
[2018-06-12] MEDS: FUROSEMIDE 40 MG/4 ML INJECTABLE VIAL IVPUSH SCH (11:12)
[2018-06-12] MEDS: LOSARTAN POTASSIUM 50 MG TABLET (FP) PO SCH (11:14)
[2018-06-12] MEDS: POLYETHYLENE GLYCOL 3350 255 GM BTL PO SCH ×2 (11:14→22:05)
[2018-06-12] MEDS: SILVER SULFADIAZINE 1% TOP CREAM 400 GM JAR TP SCH ×2 (11:14→22:02)
--- NOTE | 2018-06-12 17:10 | PN ---
Physical Exam: SUBJECTIVE: Patient seen and examined at bedside this morning. No acute events overnight. Patient has no new complaints. OBJECTIVE: Vital Signs Period Temp Pulse Resp BP Sys/Kuo Pulse Ox Last 24 Hr 97.4 F-98.2 F 59-64 18-20 95-129/43-62 97-98 GENERAL: Awake, alert, and fully oriented, in no acute distress. HEAD: Normal with no signs of trauma. EYES: PERRLA, EOMI, sclera anicteric, conjunctiva clear. No lid lag. EARS, NOSE, THROAT: Ears normal, nares patent, oropharynx clear without exudates. Moist mucous membranes. NECK: Normal range of motion, supple without lymphadenopathy, JVD, or masses. LUNGS: +crackles bilaterally HEART: Regular rate and rhythm, normal S1 and S2 without murmur, rub or gallop. ABDOMEN: Soft, nontender, mildly distended, normoactive bowel sounds, no guarding, no rebound, no masses. MUSCULOSKELETAL: Normal range of motion at all joints. No bony deformities or tenderness. No CVA tenderness. UPPER EXTREMITIES: 2+ pulses, warm, well-perfused. No cyanosis. No clubbing. No peripheral edema. LOWER EXTREMITIES: 2+ pulses, warm, well-perfused. No calf tenderness. +2 bilateral pitting edema. +erythema on both lower legs with weeping. NEUROLOGICAL: Cranial nerves II-XII intact. Normal speech. Gait not observed. PSYCHIATRIC: Cooperative. Good eye contact. Appropriate mood and affect. SKIN: Warm, dry, normal turgor, no rashes or lesions noted, normal capillary refill. Laboratory Results - last 24 hr 06/11/18 06/12/18 06/12/18 21:30 05:33 06:50 WBC 5.7 RBC 2.55 L Hgb 8.8 L Hct 26.7 L MCV 104.7 H MCH 34.4 H MCHC 32.8 RDW 19.0 H Plt Count 314 MPV 8.8 Sodium Potassium Chloride Carbon Dioxide Anion Gap BUN Creatinine Creat Clearance w eGFR POC Glucometer 262 109 Random Glucose Calcium 06/12/18 06/12/18 06:50 11:09 WBC RBC Hgb Hct MCV MCH MCHC RDW Plt Count MPV Sodium 136 Potassium 5.5 H Chloride 103 Carbon Dioxide 29 Anion Gap 4 L BUN 51 H Creatinine 1.2 Creat Clearance w eGFR 57.82 POC Glucometer 139 Random Glucose 69 L Calcium 8.7 Active Medications Generic Name Dose Route Start Last Admin Trade Name Freq PRN Reason Stop Dose Admin Al Hydroxide/Mg Hydroxide 30 ml 06/10/18 15:01 06/11/18 11:13 Mylanta Oral Suspension - PO 30 ml Q6H PRN Administration DYSPEPSIA Atorvastatin Calcium 40 mg 06/10/18 22:00 06/11/18 21:21 Lipitor - PO 40 mg HS AYDIN Administration Carvedilol 6.25 mg 06/10/18 13:21 06/12/18 08:57 Coreg - PO 6.25 mg BID@0800,2000 AYDIN Administration Doxazosin Mesylate 8 mg 06/10/18 22:00 06/11/18 21:21 Cardura - PO 8 mg HS AYDIN Administration Ferrous Sulfate 325 mg 06/10/18 10:00 06/12/18 11:11 Feosol - PO 325 mg DAILY AYDIN Administration Furosemide 60 mg 06/10/18 10:00 06/12/18 11:12 Lasix Injection - IVPUSH 60 mg DAILY AYDIN Administration Insulin Aspart 1 vial 06/10/18 07:00 06/12/18 11:13 Novolog Vial Sliding Scale - SQ Not Given ACHS [facility] Protocol Insulin Detemir 22 units 06/10/18 22:00 06/11/18 21:32 Levemir Vial SQ 22 units HS AYDIN Administration Losartan Potassium 50 mg 06/10/18 10:00 06/12/18 11:14 Cozaar - PO 50 mg DAILY AYDIN Administration Clzhy-1-Adpm Ethyl Esters 1 gm 06/10/18 10:00 06/12/18 11:11 Lovaza - PO 1 gm DAILY AYDIN Administration Polyethylene Glycol 17 gm 06/10/18 10:00 06/12/18 11:14 Miralax (For Bowel Prep) - PO 17 gm BID AYDIN Administration Ranolazine 500 mg 06/10/18 10:00 06/12/18 11:07 Ranexa - PO 500 mg BID AYDIN Administration Repaglinide 0.5 mg 06/10/18 07:00 06/12/18 06:15 Prandin - PO 0.5 mg DAILY@0700 AYDIN Administration Rivaroxaban 20 mg 06/10/18 18:00 06/11/18 17:28 Xarelto - PO 20 mg DAILY@1800 AYDIN Administration Senna/Docusate Sodium 1 tablet 06/10/18 10:00 06/12/18 11:11 Pericolace - PO 1 tablet BID AYDIN Administration Silver Sulfadiazine 1 applic 06/10/18 15:50 06/12/18 11:14 Silvadene - TP 1 applic BID AYDIN Administration Spironolactone 25 mg 06/10/18 10:00 06/12/18 11:12 Aldactone - PO 25 mg BID AYDIN Administration ASSESSMENT/PLAN: Patient is an 83 year old male with past medical history of CHF, COPD, HTN, HLD , CAD (s/p stenting x7 and pacemaker), DM, chronic venous insufficiency, BPH, Skin cancer and anemia, presented with worsening shortness of breath, diffuse edema, productive cough and weight gain for a few weeks. #SOB, leg swelling, weight gain: likely 2/2 CHF exacerbation -Continue IV Lasix 60mg daily -Monitor I&O -Daily weights - baseline weight from last discharge is 192lbs. -Resume Aldactone 25mg BID #JENNYFER on CKD: likely pre-renal -Nephrology consulted. -Avoid nephrotoxic agents such as NSAIDs, aminoglycosides, and contrast dyes #Anemia -will do basic anemia workup -VitB12, Folate, FOBT, Retic count, iron studies #DM -Resume Levemir 22units HS -BGM ACHS -ISS ACHS #Hypertension -Continue Coreg 6.25 BID, Losartan 50mg daily #Hyperlipidemia -continue Atovastatin 40mg HS #CAD s/p stenting x7 and pacemaker -continue Lipitor 40, Ranexa 500 mg BID #Atrial fibrillation -Continue Xarelto 20mg BID #BPH -resume Cardura 8mg #FEN -Not on any standing fluids -Hyponatremia, will monitor bmp -diabetic/sodium restricted diet #Prophylaxis -on Xarelto 20mg #Disposition -full code -admit to med surg Visit type - Emergency Visit Emergency Visit: Yes ED Registration Date: 06/09/18 Care time: The patient presented to the Emergency Department on the above date and was hospitalized for further evaluation of their emergent condition. - New Patient This patient is new to me today: Yes Date on this admission: 06/12/18 - Critical Care Critical Care patient: No
--- NOTE | 2018-06-12 17:44 | PN ---
Teaching Attending Note Name of Resident: Capri Erickson ATTENDING PHYSICIAN STATEMENT I saw and evaluated the patient. I reviewed the resident's note and discussed the case with the resident. I agree with the resident's findings and plan as documented. SUBJECTIVE: no improvement. denies Cp, SOB, N/V/C/D OBJECTIVE: Last Vital Signs Temp Pulse Resp BP Pulse Ox 97.9 F 64 20 120/43 L 97 06/12/18 14:35 06/12/18 14:35 06/12/18 14:35 06/12/18 14:35 06/12/18 01:35 Intake & Output 06/09/18 06/10/18 06/11/18 06/12/18 23:59 23:59 23:59 23:59 Intake Total 600 450 400 Output Total 1150 2900 600 Balance -550 -2450 -200 Weight 167 lb 166 lb 2 oz 196 lb 0.7 oz 193 lb General NAD Lungs decreased breath sounds B/L bases extremities 1+ pitting edema B/L LE ASSESSMENT AND PLAN: 83yo M with PMH systolic CHF, COPD not on home O2, WILLIS on cpap, CAD s/p stents , HTN, S/p PPM, BPH s/p TURP, afib on xarelto presented to the Er wtih progressively worsening SOB with cough and orthopnea and found to be in acute on chronic systolic CHF 1. Acute on Chronic Systolic CHF- 3 lb weight loss. appears to be close to baseline weight from last discharge which was 192lbs. will cont lasix 60mg IV and will consider switching over to po in next 24-48H. daily weights, strict I&O 2. Dyspepsia- improved. cont mylanta prn 3. JENNYFER- likely pre-renal. slowly improving. cont diuresis. avoid nephrotoxic agents 4. COPD- no sign of acute exacerbation 5. CAD s/p stents- cont ranexa/asa 6. HTN- controlled. cont home regimen 7. DM- cont levemir, iss, bgm 8. S/p PPM 9. BPH s/p TURP 10. Afib on xarelto- rate controlled. on xarelto 11. DVT ppx- xarelto
[2018-06-12] MEDS: RIVAROXABAN 20 MG TABLET PO SCH (17:57)
[2018-06-12] MEDS ORDERED: INSULIN (NOVOLOG) ASPART 100 UNITS/ML 10ML VIAL ONE (21:49)
[2018-06-12] MEDS: ATORVASTATIN CA 40 MG TABLET (FP) PO SCH (22:00)
[2018-06-12] MEDS: DOXAZOSIN MESYLATE 4 MG TABLET PO SCH (22:01)
[2018-06-12] MEDS: INSULIN (LEVEMIR) 100 UNITS/ML UNITS SQ SCH (22:13)
[2018-06-13] MEDS ORDERED: ACETAMINOPHEN 325 MG TABLET (FP) PO ONE (01:09)
[2018-06-13] MEDS ORDERED: DEXTROSE 50%-WATER 25 GM/50 ML DISP.SYRIN IVPUSH ONE (04:03)
[2018-06-13] MEDS ORDERED: INSULIN (NOVOLOG) ASPART 100 UNITS/ML 10ML VIAL SQ ONE (04:03)
[2018-06-13] MEDS ORDERED: DEXTROSE 50%-WATER - 25 GM/50 ML VIAL IVPUSH PRN (04:04)
[2018-06-13] MEDS ORDERED: CALCIUM GLUCONATE 10% - 1,000 MG/10 ML VIAL IVPUSH ONE (04:07)
[2018-06-13] MEDS ORDERED: SODIUM POLYSTYRENE SULFONATE 15 GM/60 ML BOTTLE PO ONE ×2 (04:13→14:43)
--- NOTE | 2018-06-13 04:16 | HOSP ---
Subjective - Review of Symptoms Subjective: Notified by nurse of K+ 5.5. EKG and Kayexylate ordered. Will repeat BMP in AM. Physical Examination Vital Signs: Vital Signs Temperature 97.5 F L 06/13/18 02:00 Pulse Rate 60 06/13/18 02:00 Respiratory Rate 20 06/13/18 02:00 Blood Pressure 118/55 L 06/13/18 02:00 O2 Sat by Pulse Oximetry (%) 98 06/12/18 09:00 Labs: CBC, BMP 06/12/18 06:50 06/12/18 06:50 Visit type - Emergency Visit Emergency Visit: Yes ED Registration Date: 06/09/18 Care time: The patient presented to the Emergency Department on the above date and was hospitalized for further evaluation of their emergent condition. - New Patient This patient is new to me today: Yes Date on this admission: 06/13/18 - Critical Care Critical Care patient: No
[2018-06-13] MEDS ORDERED: SODIUM POLYSTYRENE SULFONATE 15 GM/60 ML BOTTLE ONE (04:46)
[2018-06-13] MEDS: INSULIN SLIDING SCALE (NOVOLOG) 1 VIAL SQ SCH ×4 (06:47→21:39)
[2018-06-13 07:53] LABS: BASO % 1.1 % (0-2.0); EOS % 10.7 % (0-4.5); HEMOGLOBIN 8.7 GM/dL (11.7-16.9); LYMPH % 9.8 % (8-40); MCHC 33.3 g/dl (32.0-35.9); MEAN PLT VOLUME 8.5 fl (7.5-11.1); MONO % 13.5 % (3.8-10.2); NEUT % 64.9 % (42.8-82.8); PLATELET COUNT 306 K/MM3 (134-434); RBC 2.48 M/mm3 (4.00-5.60); RDW 18.9 % (11.9-15.9); WHITE BLOOD COUNT 6.5 K/mm3 (4.0-10.0)
[2018-06-13 08:38] LABS: ALBUMIN 3.1 g/dl (3.4-5.0); ALK PHOS 116 U/L (45-117); ANION GAP 6 MMOL/L (8-16); BILIRUBIN,TOTAL 0.6 mg/dL (0.2-1); BLOOD UREA NITROGEN 45 mg/dL (7-18); CALCIUM 9.1 mg/dL (8.5-10.1); CHLORIDE 105 mmol/L (98-107); CO2 26 mmol/L (21-32); GLUCOSE,RANDOM 57 mg/dL (74-106); MAGNESIUM 2.4 mg/dL (1.8-2.4); PHOSPHOROUS 3.1 mg/dL (2.5-4.9); POTASSIUM 5.4 mmol/L (3.5-5.1); SGOT/AST 43 U/L (15-37); SGPT/ALT 38 U/L (13-61); SODIUM 138 mmol/L (136-145)
[2018-06-13] MEDS: REPAGLINIDE 0.5 MG TABLET (FP) PO SCH (09:11)
[2018-06-13] MEDS ORDERED: INSULIN (LEVEMIR) 100 UNITS/ML UNITS SQ ONE (09:43)
[2018-06-13] MEDS: SILVER SULFADIAZINE 1% TOP CREAM 400 GM JAR TP SCH ×2 (10:55→21:43)
[2018-06-13] MEDS ORDERED: PT OWN MED DRAWER 7, Y5N ONE ×2 (11:03→21:49)
[2018-06-13] MEDS: LOSARTAN POTASSIUM 50 MG TABLET (FP) PO SCH (11:11)
[2018-06-13] MEDS: FERROUS SO4 325 MG TABLET (FP) PO SCH (11:11)
[2018-06-13] MEDS: SENNOSIDES/DOCUSATE COMBO (SENNA PLUS) TABLET (UD) PO SCH ×2 (11:11→21:41)
[2018-06-13] MEDS: OMEGA-3 ACID ETHYL ESTERS (FATTY-ACIDS) 1 GM CAPSULE (FP) PO SCH (11:11)
[2018-06-13] MEDS: CARVEDILOL 6.25 MG TABLET (FP) PO SCH ×2 (11:12→21:41)
[2018-06-13] MEDS: RANOLAZINE E.R. 500 MG TABLET (FP) PO SCH ×2 (11:12→21:41)
[2018-06-13] MEDS: FUROSEMIDE 40 MG/4 ML INJECTABLE VIAL IVPUSH SCH (11:12)
[2018-06-13] MEDS: POLYETHYLENE GLYCOL 3350 255 GM BTL PO SCH ×2 (11:13→21:42)
--- NOTE | 2018-06-13 11:46 | EKG ---
Test Reason : Blood Pressure : / mmHG Vent. Rate : 060 BPM Atrial Rate : 084 BPM P-R Int : 000 ms QRS Dur : 162 ms QT Int : 528 ms P-R-T Axes : 000 -63 104 degrees QTc Int : 528 ms Ventricular-paced rhythm ABNORMAL ECG WHEN COMPARED WITH ECG OF 09-JUN-2018 16:57, NO SIGNIFICANT CHANGE WAS FOUND Confirmed by Les Klein MD ([id number]) on 06/13/2018 11:45:58 AM Referred By: Confirmed By:Les Klein MD
--- NOTE | 2018-06-13 14:23 | CON.CARD ---
Consult Consult Specialty:: Cardiology Referred by:: Hospitalist Reason for Consultation:: Cardiac evaluation - History of Present Illness History of Present Illness: Patient is an 83 year old male with underlying history of CAD, s/p PCI/stent, angina pectoris, systolic/diastolic LV failure with chronic class 1 NYHA classification LV failure, AV block, post PPM, persistent AF [id number] score of 6 on DOAC (Xarelto), HTN/HCVD, DM, hypercholesterolemia, COPD, OSAS with recent hospitalization for dyspnea and pedal edema now presents again from NH/ rehab with worsening SOB, pedal edema, weight gain, productive cough, PND, orthopnea and sleep disturbances. HE denies chest pain or palpitations. Denies fever or chills. Denies headache or lightheadedness. Denies nausea, vomiting, diarrhea or abdominal pain. - History Source History Provided By: Patient, Medical Record Limitations to Obtaining History: Clinical Condition - Past Medical History Cardio/Vascular: Yes: AFIB, CAD, CHF, HTN, Hyperlipdemia Pulmonary: Yes: COPD, Sleep Apnea Renal/: Yes: BPH Endocrine: Yes: Diabetes Mellitus - Past Surgical History Past Surgical History: Yes: Permanent Pacemaker, TURP - Alcohol/Substance Use Hx Alcohol Use: No - Smoking History Smoking history: Never smoked Have you smoked in the past 12 months: No Aproximately how many cigarettes per day: 0 - Social History Usual Living Arrangement: Alone ADL: Support Services History of Recent Travel: No Home Medications - Allergies Allergies/Adverse Reactions: Allergies Allergy/AdvReac Type Severity Reaction Status Date / Time No Known Drug Allergies Allergy Verified 06/09/18 17:31 - Home Medications Home Medications: Ambulatory Orders Atorvastatin Ca [Lipitor] 40 mg PO HS #0 tablet 09/09/12 Docosahexanoic Acid/Epa [Fish Oil Softgel] 1 each PO DAILY #0 capsule 09/09/12 Polyethylene Glycol 3350 [Miralax 255 gm Btl -] 17 gm PO BID #0 btl 09/09/12 Sennosides/Docusate Sodium [Senna-Docusate Sodium Tab] 1 each PO BID #0 tablet 09/09/12 Insulin (Levemir) [Levemir Vial] 22 unit SQ ASDIR 04/29/18 Repaglinide 0.5 mg PO DAILY 04/29/18 Carvedilol [Coreg -] 6.25 mg PO BID #60 tablet 05/12/18 Doxazosin Mesylate [Cardura -] 8 mg PO HS #60 tablet 05/12/18 Ferrous Sulfate [Feosol] 325 mg PO DAILY ud 05/12/18 Furosemide [Lasix -] 20 mg PO DAILY #30 tablet 05/12/18 Losartan Potassium 50 mg PO DAILY #50 tablet 05/12/18 Ranolazine [Ranexa -] 500 mg PO BID #60 tab 05/12/18 Rivaroxaban [Xarelto -] 20 mg PO DAILY@1800 #30 tablet 05/12/18 Silver Sulfadiazine 1% Top Cr [Silvadene -] 1 applic TP BID #1 jar 05/12/18 Spironolactone [Aldactone -] 25 mg PO BID #60 tablet 05/12/18 Mag Hydrox/Al Hydrox/Simeth [Mylanta Oral Suspension -] 30 ml PO Q6H PRN cup Family Disease History - Family Disease History Family Disease History: Other: Father (Left when patient was young), Mother ( : 90: "old age") Review of Systems - Review of Systems Constitutional: denies: Chills, Fever Cardiovascular: reports: Shortness of Breath. denies: Chest Pain, Palpitations Respiratory: reports: Cough, Orthopnea, PND, SOB. denies: Hemoptysis, Wheezing Gastrointestinal: denies: Abdominal Pain, Constipation, Diarrhea, Melena, Nausea , Rectal Bleeding, Vomiting Genitourinary: denies: Dysuria Musculoskeletal: denies: Joint Pain Neurological: denies: Dizziness, Headache, Seizure, Syncope Vital Signs: Vital Signs Temperature 97.1 F L 06/13/18 11:22 Pulse Rate 51 L 06/13/18 11:22 Respiratory Rate 20 06/13/18 11:22 Blood Pressure 105/56 L 06/13/18 11:22 O2 Sat by Pulse Oximetry (%) 98 06/12/18 21:00 Eyes: Yes: PERRL HENT: Yes: Atraumatic Neck: Yes: Supple Respiratory: Yes: Diminished Gastrointestinal: Yes: Normal Bowel Sounds, Soft. No: Tenderness Cardiovascular: Yes: Regular Rate and Rhythm JVD: No Carotid Bruit: No PMI: Non-Displaced Heart Sounds: Yes: S1, S2 Murmur: Yes: Systolic Murmur, Grade 2 Edema: Yes - Other Data Labs, Other Data: CBC, BMP 06/13/18 06:30 06/13/18 06:30 INR, PTT INR 1.75 (0.83-1.09) H 06/09/18 18:15 Ventricular paced rhythm Imaging - Results Chest X-ray: Report Reviewed Ultrasound: Report Reviewed (No DVT) EKG: Report Reviewed Problem List - Problems (1) Diabetes mellitus Code(s): E11.9 - TYPE 2 DIABETES MELLITUS WITHOUT COMPLICATIONS (2) History of percutaneous coronary intervention Code(s): Z98.890 - OTHER SPECIFIED POSTPROCEDURAL STATES (3) ASHD (arteriosclerotic heart disease) Code(s): I25.10 - ATHSCL HEART DISEASE OF [place] CORONARY ARTERY W/O ANG PCTRS (4) Anemia Code(s): D64.9 - ANEMIA, UNSPECIFIED (5) CHF (congestive heart failure) Code(s): I50.9 - HEART FAILURE, UNSPECIFIED Qualifiers: Heart failure type: combined systolic and diastolic Heart failure chronicity: acute on chronic Qualified Code(s): I50.43 - Acute on chronic combined systolic (congestive) and diastolic (congestive) heart failure (6) COPD (chronic obstructive pulmonary disease) Code(s): J44.9 - CHRONIC OBSTRUCTIVE PULMONARY DISEASE, UNSPECIFIED Qualifiers: COPD type: unspecified COPD Qualified Code(s): J44.9 - Chronic obstructive pulmonary disease, unspecified (7) Peripheral edema Code(s): R60.9 - EDEMA, UNSPECIFIED (8) Sleep apnea Code(s): G47.30 - SLEEP APNEA, UNSPECIFIED Qualifiers: Sleep apnea type: unspecified type Qualified Code(s): G47.30 - Sleep apnea , unspecified Assessment/Plan 1. Acute on chronic LV failure class 2-3 NYHA classification LV failure referable to systolic/diastolic heart failure 2. CAD, s/p PCI/stent, angina pectoris 3. Persistent AF [id number] score of 6 on anticoagulation with Xarelto 4. AV block s/p PPM 5. HTN 6. Hypercholesterolemia 7. DM 8. COPD 9. CKD 10. Anemia PLAN: 1. Continue Carvedilol and Cozaar 2. Statin therapy 3. Xarelto 4. Diuretics and monitor I/Os and daily weight 5. Ranexa Further plans are to follow Sang H. Kristen MD
--- NOTE | 2018-06-13 14:50 | PN ---
Teaching Attending Note Name of Resident: Capri Erickson ATTENDING PHYSICIAN STATEMENT I saw and evaluated the patient. I reviewed the resident's note and discussed the case with the resident. I agree with the resident's findings and plan as documented with exceptions below. SUBJECTIVE: Patient seen and examined. Breathing improved. Tangential in conversations OBJECTIVE: Vital Signs Period Temp Pulse Resp BP Sys/Kuo Pulse Ox Last 24 Hr 97.1 F-97.9 F 51-63 19-22 101-118/42-60 98 Intake & Output 06/10/18 06/11/18 06/12/18 06/13/18 23:59 23:59 23:59 23:59 Intake Total 981 459 5768 265 Output Total 1150 2900 2300 400 Balance -550 -2450 -1250 -135 Weight 166 lb 2 oz 196 lb 0.7 oz 193 lb 192 lb 6.4 oz General: sitting in bed in no acute distress Chest: bibasilar rales Abdomen:Soft, obese, NT Extremities: 2+ pedal pitting edema, R>L Home Medications Medication Instructions Recorded Atorvastatin Ca [Lipitor] 40 mg PO HS #0 tablet 09/09/12 Docosahexanoic Acid/Epa [Fish Oil 1 each PO DAILY #0 capsule 09/09/12 Softgel] Polyethylene Glycol 3350 [Miralax 17 gm PO BID #0 btl 09/09/12 255 gm Btl -] Sennosides/Docusate Sodium 1 each PO BID #0 tablet 09/09/12 [Senna-Docusate Sodium Tab] Insulin (Levemir) [Levemir Vial] 22 unit SQ ASDIR 04/29/18 Repaglinide 0.5 mg PO DAILY 04/29/18 Carvedilol [Coreg -] 6.25 mg PO BID #60 tablet 05/12/18 Doxazosin Mesylate [Cardura -] 8 mg PO HS #60 tablet 05/12/18 Ferrous Sulfate [Feosol] 325 mg PO DAILY ud 05/12/18 Furosemide [Lasix -] 20 mg PO DAILY #30 tablet 05/12/18 Losartan Potassium 50 mg PO DAILY #50 tablet 05/12/18 Ranolazine [Ranexa -] 500 mg PO BID #60 tab 05/12/18 Rivaroxaban [Xarelto -] 20 mg PO DAILY@1800 #30 tablet 05/12/18 Silver Sulfadiazine 1% Top Cr 1 applic TP BID #1 jar 05/12/18 [Silvadene -] Spironolactone [Aldactone -] 25 mg PO BID #60 tablet 05/12/18 Mag Hydrox/Al Hydrox/Simeth 30 ml PO Q6H PRN cup 06/13/18 [Mylanta Oral Suspension -] Active Medications Al Hydroxide/Mg Hydroxide (Mylanta Oral Suspension -) 30 ml PO Q6H PRN PRN Reason: DYSPEPSIA Last Admin: 06/11/18 11:13 Dose: 30 ml Atorvastatin Calcium (Lipitor -) 40 mg PO [facility] Last Admin: 06/12/18 22:00 Dose: 40 mg Carvedilol (Coreg -) 6.25 mg PO BID@08,1999 [facility] Last Admin: 06/13/18 11:12 Dose: Not Given Doxazosin Mesylate (Cardura -) 8 mg PO [facility] Last Admin: 06/12/18 22:01 Dose: 8 mg Ferrous Sulfate (Feosol -) 325 mg PO DAILY [facility] Last Admin: 06/13/18 11:11 Dose: 325 mg Furosemide (Lasix Injection -) 60 mg IVPUSH DAILY [facility] Last Admin: 06/13/18 11:12 Dose: 60 mg Insulin Aspart (Novolog Vial Sliding Scale -) 1 vial SQ [facility]; Protocol Last Admin: 06/13/18 12:45 Dose: Not Given Insulin Detemir (Levemir Vial) 22 units SQ [facility] Last Admin: 06/12/18 22:13 Dose: 22 units Losartan Potassium (Cozaar -) 50 mg PO DAILY [facility] Last Admin: 06/13/18 11:11 Dose: 50 mg Lyqgg-[id number] Ethyl Esters (Lovaza -) 1 gm PO DAILY [facility] Last Admin: 06/13/18 11:11 Dose: 1 gm Polyethylene Glycol (Miralax (For Bowel Prep) -) 17 gm PO BID [facility] Last Admin: 06/13/18 11:13 Dose: 17 gm Ranolazine (Ranexa -) 500 mg PO BID [facility] Last Admin: 06/13/18 11:12 Dose: 500 mg Repaglinide (Prandin -) 0.5 mg PO DAILY@0700 [facility] Last Admin: 06/13/18 09:11 Dose: 0.5 mg Rivaroxaban (Xarelto -) 20 mg PO DAILY@1800 [facility] Last Admin: 06/12/18 17:57 Dose: 20 mg Senna/Docusate Sodium (Pericolace -) 1 tablet PO BID [facility] Last Admin: 06/13/18 11:11 Dose: 1 tablet Silver Sulfadiazine (Silvadene -) 1 applic TP BID [facility] Last Admin: 06/13/18 10:55 Dose: 1 applic Sodium Polystyrene Sulfonate (Kayexalate -) 15 gm PO ONCE ONE Stop: 06/13/18 14:44 Laboratory Results - last 24 hr 06/12/18 06/12/18 06/13/18 17:23 22:12 06:30 WBC 6.5 RBC 2.48 L Hgb 8.7 L Hct 26.0 L MCV 105.0 H MCH 35.0 H MCHC 33.3 RDW 18.9 H Plt Count 306 MPV 8.5 Absolute Neuts (auto) 4.2 Neutrophils % 64.9 D Lymphocytes % 9.8 D Monocytes % 13.5 H Eosinophils % 10.7 H D Basophils % 1.1 Nucleated RBC % 0 Sodium Potassium Chloride Carbon Dioxide Anion Gap BUN Creatinine Creat Clearance w eGFR POC Glucometer 210 185 Random Glucose Calcium Phosphorus Magnesium Total Bilirubin AST ALT Alkaline Phosphatase Total Protein Albumin 06/13/18 06/13/18 06/13/18 06:30 06:46 12:02 WBC RBC Hgb Hct MCV MCH MCHC RDW Plt Count MPV Absolute Neuts (auto) Neutrophils % Lymphocytes % Monocytes % Eosinophils % Basophils % Nucleated RBC % Sodium 138 Potassium 5.4 H Chloride 105 Carbon Dioxide 26 Anion Gap 6 L BUN 45 H Creatinine 1.0 Creat Clearance w eGFR > 60 POC Glucometer 50 114 Random Glucose 57 L Calcium 9.1 Phosphorus 3.1 Magnesium 2.4 Total Bilirubin 0.6 AST 43 H ALT 38 Alkaline Phosphatase 116 Total Protein 6.0 L Albumin 3.1 L 2D echo from 04/2018 reviewed ASSESSMENT AND PLAN: 83yo M with PMH systolic CHF, COPD not on home O2, WILLIS on cpap, CAD s/p stents , HTN, S/p PPM, BPH s/p TURP, afib on xarelto presented to the Er wtih progressively worsening SOB with cough and orthopnea and found to be in acute on chronic systolic CHF -Acute on chronic systolic heart failure exacer ation -JENNYFER, likely from above, improved -Hyperkalemia -CAD s/p PCI -Atrial fibrillation on xzarelto -s/p PPM -CAD s/p PCI -HTN -IDDM -BPHs/p TURP Plan; Volume status improved, continue lasix 60 mg IV daily. Daily weights, strict I/ os. Cardiology consult Dr. Blake. Renal function improved. Hold spironolactone. Low K diet. Kayexalate x 1. Losartan based on renal function/K levels. Continue coreg/ranexa/asa -Levemir, ISS, DiAbetic diet. AM hypoglycemia, hold repaglinide for now. DVTPPX xarelto Dispo pending clinical improvementin 1-2 days Check home oxygen needs. plan discussed with patient in detail, all questions answered.
[2018-06-13] MEDS: RIVAROXABAN 20 MG TABLET PO SCH (18:47)
--- NOTE | 2018-06-13 19:02 | PN ---
Physical Exam: SUBJECTIVE: Patient seen and examined at bedside this morning. No acute events overnight. Patient has no complaints. OBJECTIVE: Vital Signs Period Temp Pulse Resp BP Sys/Kuo Pulse Ox Last 24 Hr 97.1 F-98.0 F 51-63 19-22 101-120/50-60 98 GENERAL: Awake, alert, and fully oriented, in no acute distress. HEAD: Normal with no signs of trauma. EYES: PERRLA, EOMI, sclera anicteric, conjunctiva clear. No lid lag. EARS, NOSE, THROAT: Ears normal, nares patent, oropharynx clear without exudates. Moist mucous membranes. NECK: Normal range of motion, supple without lymphadenopathy, JVD, or masses. LUNGS: +crackles bilaterally HEART: Regular rate and rhythm, normal S1 and S2 without murmur, rub or gallop. ABDOMEN: Soft, nontender, mildly distended, normoactive bowel sounds, no guarding, no rebound, no masses. MUSCULOSKELETAL: Normal range of motion at all joints. No bony deformities or tenderness. No CVA tenderness. UPPER EXTREMITIES: 2+ pulses, warm, well-perfused. No cyanosis. No clubbing. No peripheral edema. LOWER EXTREMITIES: 2+ pulses, warm, well-perfused. No calf tenderness. +2 bilateral pitting edema. +erythema on both lower legs with weeping. NEUROLOGICAL: Cranial nerves II-XII intact. Normal speech. Gait not observed. PSYCHIATRIC: Cooperative. Good eye contact. Appropriate mood and affect. SKIN: Warm, dry, normal turgor, no rashes or lesions noted, normal capillary refill. Laboratory Results - last 24 hr 06/12/18 06/13/18 06/13/18 22:12 06:30 06:30 WBC 6.5 RBC 2.48 L Hgb 8.7 L Hct 26.0 L MCV 105.0 H MCH 35.0 H MCHC 33.3 RDW 18.9 H Plt Count 306 MPV 8.5 Absolute Neuts (auto) 4.2 Neutrophils % 64.9 D Lymphocytes % 9.8 D Monocytes % 13.5 H Eosinophils % 10.7 H D Basophils % 1.1 Nucleated RBC % 0 Sodium 138 Potassium 5.4 H Chloride 105 Carbon Dioxide 26 Anion Gap 6 L BUN 45 H Creatinine 1.0 Creat Clearance w eGFR > 60 POC Glucometer 185 Random Glucose 57 L Calcium 9.1 Phosphorus 3.1 Magnesium 2.4 Total Bilirubin 0.6 AST 43 H ALT 38 Alkaline Phosphatase 116 Total Protein 6.0 L Albumin 3.1 L 06/13/18 06/13/18 06/13/18 06:46 12:02 17:18 WBC RBC Hgb Hct MCV MCH MCHC RDW Plt Count MPV Absolute Neuts (auto) Neutrophils % Lymphocytes % Monocytes % Eosinophils % Basophils % Nucleated RBC % Sodium Potassium Chloride Carbon Dioxide Anion Gap BUN Creatinine Creat Clearance w eGFR POC Glucometer 50 114 210 Random Glucose Calcium Phosphorus Magnesium Total Bilirubin AST ALT Alkaline Phosphatase Total Protein Albumin Active Medications Generic Name Dose Route Start Last Admin Trade Name Freq PRN Reason Stop Dose Admin Al Hydroxide/Mg Hydroxide 30 ml 06/10/18 15:01 06/11/18 11:13 Mylanta Oral Suspension - PO 30 ml Q6H PRN Administration DYSPEPSIA Atorvastatin Calcium 40 mg 06/10/18 22:00 06/12/18 22:00 Lipitor - PO 40 mg HS AYDIN Administration Carvedilol 6.25 mg 06/10/18 13:21 06/13/18 11:12 Coreg - PO Not Given BID@0800,1999 AYDIN Doxazosin Mesylate 8 mg 06/10/18 22:00 06/12/18 22:01 Cardura - PO 8 mg HS AYDIN Administration Ferrous Sulfate 325 mg 06/10/18 10:00 06/13/18 11:11 Feosol - PO 325 mg DAILY AYDIN Administration Furosemide 60 mg 06/10/18 10:00 06/13/18 11:12 Lasix Injection - IVPUSH 60 mg DAILY AYDIN Administration Insulin Aspart 1 vial 06/10/18 07:00 06/13/18 17:21 Novolog Vial Sliding Scale - SQ 2 units ACHS AYDIN Administration Protocol Insulin Detemir 22 units 06/10/18 22:00 06/12/18 22:13 Levemir Vial SQ 22 units HS AYDIN Administration Losartan Potassium 50 mg 06/10/18 10:00 06/13/18 11:11 Cozaar - PO 50 mg DAILY AYDIN Administration [id number] Ethyl Esters 1 gm 06/10/18 10:00 06/13/18 11:11 Lovaza - PO 1 gm DAILY AYDIN Administration Polyethylene Glycol 17 gm 06/10/18 10:00 06/13/18 11:13 Miralax (For Bowel Prep) - PO 17 gm BID AYDIN Administration Ranolazine 500 mg 06/10/18 10:00 06/13/18 11:12 Ranexa - PO 500 mg BID AYDIN Administration Rivaroxaban 20 mg 06/10/18 18:00 06/13/18 18:47 Xarelto - PO 20 mg DAILY@1800 AYDIN Administration Senna/Docusate Sodium 1 tablet 06/10/18 10:00 06/13/18 11:11 Pericolace - PO 1 tablet BID AYDIN Administration Silver Sulfadiazine 1 applic 06/10/18 15:50 06/13/18 10:55 Silvadene - TP 1 applic BID AYDIN Administration ASSESSMENT/PLAN: Patient is an 83 year old male with past medical history of CHF, COPD, HTN, HLD , CAD (s/p stenting x7 and pacemaker), DM, chronic venous insufficiency, BPH, Skin cancer and anemia, presented with worsening shortness of breath, diffuse edema, productive cough and weight gain for a few weeks. #SOB, leg swelling, weight gain: likely 2/2 CHF exacerbation -Continue IV Lasix 60mg daily -Monitor I&O -Daily weights - baseline weight from last discharge is 192lbs. -Weight 87.54kg --> 87.27 kg today. -Resume Aldactone 25mg BID #JENNYFER on CKD: likely pre-renal, resolved -Nephrology consulted. -Avoid nephrotoxic agents such as NSAIDs, aminoglycosides, and contrast dyes #Anemia -VitB12, Folate, FOBT, Retic count, iron studies done #DM -Resume Levemir 22units HS -BGM ACHS -ISS ACHS #Hypertension -Continue Coreg 6.25 BID, Losartan 50mg daily #Hyperlipidemia -continue Atovastatin 40mg HS #CAD s/p stenting x7 and pacemaker -continue Lipitor 40, Ranexa 500 mg BID #Atrial fibrillation -Continue Xarelto 20mg BID #BPH -resume Cardura 8mg #FEN -Not on any standing fluids -lytes wnl, routine bmp monitoring -diabetic/sodium restricted diet #Prophylaxis -on Xarelto 20mg #Disposition -full code -admit to med surg Visit type - Emergency Visit Emergency Visit: Yes ED Registration Date: 06/09/18 Care time: The patient presented to the Emergency Department on the above date and was hospitalized for further evaluation of their emergent condition. - New Patient This patient is new to me today: Yes Date on this admission: 06/13/18 - Critical Care Critical Care patient: No
[2018-06-13] MEDS: ATORVASTATIN CA 40 MG TABLET (FP) PO SCH (21:41)
[2018-06-13] MEDS: INSULIN (LEVEMIR) 100 UNITS/ML UNITS SQ SCH (21:41)
[2018-06-13] MEDS: DOXAZOSIN MESYLATE 4 MG TABLET PO SCH (21:50)
[2018-06-14] MEDS ORDERED: PT OWN MED DRAWER 7, Y5N ONE ×2 (06:22→08:56)
[2018-06-14] MEDS: INSULIN SLIDING SCALE (NOVOLOG) 1 VIAL SQ SCH ×4 (06:41→23:14)
[2018-06-14 08:08] LABS: EOS % 9.5 % (0-4.5); HEMATOCRIT 26.7 % (35.4-49); HEMOGLOBIN 8.8 GM/dL (11.7-16.9); LYMPH % 8.7 % (8-40); MCH 34.3 pg (25.7-33.7); MEAN CELL VOLUME 103.8 fl (80-96); MEAN PLT VOLUME 8.6 fl (7.5-11.1); MONO % 13.4 % (3.8-10.2); NEUT % 67.4 % (42.8-82.8); PLATELET COUNT 341 K/MM3 (134-434); RBC 2.58 M/mm3 (4.00-5.60); RDW 18.5 % (11.9-15.9); WHITE BLOOD COUNT 6.3 K/mm3 (4.0-10.0)
[2018-06-14 08:29] LABS: ANION GAP 6 MMOL/L (8-16); BLOOD UREA NITROGEN 42 mg/dL (7-18); CALCIUM 8.4 mg/dL (8.5-10.1); CHLORIDE 101 mmol/L (98-107); CO2 29 mmol/L (21-32); CREATININE 0.9 mg/dL (0.55-1.3); GLUCOSE,RANDOM 93 mg/dL (74-106); MAGNESIUM 2.4 mg/dL (1.8-2.4); PHOSPHOROUS 2.9 mg/dL (2.5-4.9); POTASSIUM 4.9 mmol/L (3.5-5.1); SODIUM 135 mmol/L (136-145)
[2018-06-14] MEDS: CARVEDILOL 6.25 MG TABLET (FP) PO SCH ×2 (08:35→21:44)
[2018-06-14] MEDS: FERROUS SO4 325 MG TABLET (FP) PO SCH (10:52)
[2018-06-14] MEDS: SENNOSIDES/DOCUSATE COMBO (SENNA PLUS) TABLET (UD) PO SCH ×2 (10:52→23:11)
[2018-06-14] MEDS: OMEGA-3 ACID ETHYL ESTERS (FATTY-ACIDS) 1 GM CAPSULE (FP) PO SCH (10:52)
[2018-06-14] MEDS: RANOLAZINE E.R. 500 MG TABLET (FP) PO SCH ×3 (10:52→23:14)
[2018-06-14] MEDS: FUROSEMIDE 40 MG/4 ML INJECTABLE VIAL IVPUSH SCH (10:52)
[2018-06-14] MEDS: LOSARTAN POTASSIUM 50 MG TABLET (FP) PO SCH (10:52)
[2018-06-14] MEDS: SILVER SULFADIAZINE 1% TOP CREAM 400 GM JAR TP SCH ×2 (10:56→23:14)
[2018-06-14] MEDS: POLYETHYLENE GLYCOL 3350 255 GM BTL PO SCH ×2 (10:58→23:11)
[2018-06-14] MEDS ORDERED: FUROSEMIDE 40 MG/4 ML INJECTABLE VIAL IVPUSH ONE (14:28)
--- NOTE | 2018-06-14 14:30 | PN ---
Teaching Attending Note Name of Resident: Capri Erickson ATTENDING PHYSICIAN STATEMENT I saw and evaluated the patient. I reviewed the resident's note and discussed the case with the resident. I agree with the resident's findings and plan as documented with exceptions below. SUBJECTIVE: Patient seen and examined. Breathing and swelling improved, no new complaints. OBJECTIVE: Vital Signs Period Temp Pulse Resp BP Sys/Kuo Pulse Ox Last 24 Hr 97.3 F-97.6 F 60-67 18-22 109-122/51-73 86-99 Intake & Output 06/11/18 06/12/18 06/13/18 06/14/18 23:59 23:59 23:59 23:59 Intake Total 450 1050 1045 Output Total 2900 2300 800 350 Balance -2450 -1250 245 -350 Weight 196 lb 0.7 oz 193 lb 192 lb 6.4 oz 191 lb 9.6 oz General: sitting in bed in no acute distress Chest: distant breath sounds consistent with copd , positive air entry, no rales appreciated Extremities: improved pedal edema Abdomen:soft, obese, NT Active Medications Al Hydroxide/Mg Hydroxide (Mylanta Oral Suspension -) 30 ml PO Q6H PRN PRN Reason: DYSPEPSIA Last Admin: 06/11/18 11:13 Dose: 30 ml Atorvastatin Calcium (Lipitor -) 40 mg PO [facility] Last Admin: 06/13/18 21:41 Dose: 40 mg Carvedilol (Coreg -) 6.25 mg PO BID@0800,2000 [facility] Last Admin: 06/14/18 08:35 Dose: 6.25 mg Doxazosin Mesylate (Cardura -) 8 mg PO [facility] Last Admin: 06/13/18 21:50 Dose: 8 mg Ferrous Sulfate (Feosol -) 325 mg PO DAILY [facility] Last Admin: 06/14/18 10:52 Dose: 325 mg Furosemide (Lasix Injection -) 60 mg IVPUSH DAILY [facility] Last Admin: 06/14/18 10:52 Dose: 60 mg Insulin Aspart (Novolog Vial Sliding Scale -) 1 vial SQ [facility]; Protocol Last Admin: 06/14/18 11:55 Dose: Not Given Insulin Detemir (Levemir Vial) 22 units SQ [facility] Last Admin: 06/13/18 21:41 Dose: 22 units Losartan Potassium (Cozaar -) 50 mg PO DAILY [facility] Last Admin: 06/14/18 10:52 Dose: 50 mg Nuyba-2-Zrij Ethyl Esters (Lovaza -) 1 gm PO DAILY [facility] Last Admin: 06/14/18 10:52 Dose: 1 gm Polyethylene Glycol (Miralax (For Bowel Prep) -) 17 gm PO BID [facility] Last Admin: 06/14/18 10:58 Dose: 17 gm Ranolazine (Ranexa -) 500 mg PO BID [facility] Last Admin: 06/14/18 10:52 Dose: 500 mg Rivaroxaban (Xarelto -) 20 mg PO DAILY@1800 [facility] Last Admin: 06/13/18 18:47 Dose: 20 mg Senna/Docusate Sodium (Pericolace -) 1 tablet PO BID [facility] Last Admin: 06/14/18 10:52 Dose: 1 tablet Silver Sulfadiazine (Silvadene -) 1 applic TP BID [facility] Last Admin: 06/14/18 10:56 Dose: 1 applic Laboratory Results - last 24 hr 06/13/18 06/13/18 06/14/18 17:18 21:38 06:38 WBC RBC Hgb Hct MCV MCH MCHC RDW Plt Count MPV Absolute Neuts (auto) Neutrophils % Lymphocytes % Monocytes % Eosinophils % Basophils % Nucleated RBC % Sodium Potassium Chloride Carbon Dioxide Anion Gap BUN Creatinine Creat Clearance w eGFR POC Glucometer 210 200 119 Random Glucose Calcium Phosphorus Magnesium 06/14/18 06/14/18 06/14/18 07:30 07:30 11:36 WBC 6.3 RBC 2.58 L Hgb 8.8 L Hct 26.7 L MCV 103.8 H MCH 34.3 H MCHC 33.0 RDW 18.5 H Plt Count 341 MPV 8.6 Absolute Neuts (auto) 4.2 Neutrophils % 67.4 Lymphocytes % 8.7 Monocytes % 13.4 H Eosinophils % 9.5 H Basophils % 1.0 Nucleated RBC % 0 Sodium 135 L Potassium 4.9 Chloride 101 Carbon Dioxide 29 Anion Gap 6 L BUN 42 H Creatinine 0.9 Creat Clearance w eGFR > 60 POC Glucometer 183 Random Glucose 93 Calcium 8.4 L Phosphorus 2.9 Magnesium 2.4 ASSESSMENT AND PLAN: 83yo M with PMH systolic CHF, COPD not on home O2, WILLIS on cpap, CAD s/p stents , HTN, S/p PPM, BPH s/p TURP, afib on xarelto presented to the Er wtih progressively worsening SOB with cough and orthopnea and found to be in acute on chronic systolic CHF -Acute on chronic systolic heart failure exacerbation -JENNYFER, likely from above, improved -Hyperkalemia -CAD s/p PCI -Atrial fibrillation on xarelto -s/p PPM -CAD s/p PCI -HTN -IDDM -BPHs/p TURP Plan; Volume status improving, still hypoxic with activity. No oxygen needs noted on recent d/c in 05/2018. Additional lasix 40 mg IV x 1. Continue 60 mg IV daily with strict I/os, daily weights and renal function/ lytes monitoring. Cardiology input noted. Renal function improved. Hold spironolactone. Low K diet. Losartan based on renal function/K levels. Continue coreg/ranexa/asa -Levemir, ISS, DiAbetic diet. AM hypoglycemia, hold repaglinide for now. DVTPPX xarelto Dispo pending clinical improvement in 1-2 days plan discussed with patient in detail, all questions answered.
--- NOTE | 2018-06-14 15:22 | PN ---
Progress Note, Physician History of Present Illness: Dyspnea resolving with diuresis. - Current Medication List Current Medications: Active Medications Al Hydroxide/Mg Hydroxide (Mylanta Oral Suspension -) 30 ml PO Q6H PRN PRN Reason: DYSPEPSIA Last Admin: 06/11/18 11:13 Dose: 30 ml Atorvastatin Calcium (Lipitor -) 40 mg PO HS [facility] Last Admin: 06/13/18 21:41 Dose: 40 mg Carvedilol (Coreg -) 6.25 mg PO BID@0800,2000 [facility] Last Admin: 06/14/18 08:35 Dose: 6.25 mg Doxazosin Mesylate (Cardura -) 8 mg PO [facility] Last Admin: 06/13/18 21:50 Dose: 8 mg Ferrous Sulfate (Feosol -) 325 mg PO DAILY [facility] Last Admin: 06/14/18 10:52 Dose: 325 mg Furosemide (Lasix Injection -) 60 mg IVPUSH DAILY [facility] Last Admin: 06/14/18 10:52 Dose: 60 mg Insulin Aspart (Novolog Vial Sliding Scale -) 1 vial SQ [facility]; Protocol Last Admin: 06/14/18 11:55 Dose: Not Given Insulin Detemir (Levemir Vial) 22 units SQ [facility] Last Admin: 06/13/18 21:41 Dose: 22 units Losartan Potassium (Cozaar -) 50 mg PO DAILY [facility] Last Admin: 06/14/18 10:52 Dose: 50 mg Mssro-7-Avwd Ethyl Esters (Lovaza -) 1 gm PO DAILY [facility] Last Admin: 06/14/18 10:52 Dose: 1 gm Polyethylene Glycol (Miralax (For Bowel Prep) -) 17 gm PO BID [facility] Last Admin: 06/14/18 10:58 Dose: 17 gm Ranolazine (Ranexa -) 500 mg PO BID [facility] Last Admin: 06/14/18 10:52 Dose: 500 mg Rivaroxaban (Xarelto -) 20 mg PO DAILY@1800 [facility] Last Admin: 06/13/18 18:47 Dose: 20 mg Senna/Docusate Sodium (Pericolace -) 1 tablet PO BID [facility] Last Admin: 06/14/18 10:52 Dose: 1 tablet Silver Sulfadiazine (Silvadene -) 1 applic TP BID [facility] Last Admin: 06/14/18 10:56 Dose: 1 applic - Objective Vital Signs: Vital Signs Temperature 97.5 F L 06/14/18 12:11 Pulse Rate 60 06/14/18 12:11 Respiratory Rate 18 06/14/18 12:11 Blood Pressure 119/55 L 06/14/18 12:11 O2 Sat by Pulse Oximetry (%) 99 06/14/18 11:23 Constitutional: Yes: No Distress, Calm Neck: Yes: Supple Cardiovascular: Yes: Regular Rate and Rhythm Respiratory: Yes: Regular, Diminished, On Nasal O2 Gastrointestinal: Yes: Normal Bowel Sounds, Soft Edema: No Labs: CBC, BMP 06/14/18 07:30 06/14/18 07:30 INR, PTT INR 1.75 (0.83-1.09) H 06/09/18 18:15 Problem List - Problems (1) CHF exacerbation Code(s): I50.9 - HEART FAILURE, UNSPECIFIED Qualifiers: Heart failure type: combined systolic and diastolic Qualified Code(s): I50.43 - Acute on chronic combined systolic (congestive) and diastolic ( congestive) heart failure (2) History of percutaneous coronary intervention Code(s): Z98.890 - OTHER SPECIFIED POSTPROCEDURAL STATES (3) ASHD (arteriosclerotic heart disease) Code(s): I25.10 - ATHSCL HEART DISEASE OF [place] CORONARY ARTERY W/O ANG PCTRS (4) COPD (chronic obstructive pulmonary disease) Code(s): J44.9 - CHRONIC OBSTRUCTIVE PULMONARY DISEASE, UNSPECIFIED Qualifiers: COPD type: unspecified COPD Qualified Code(s): J44.9 - Chronic obstructive pulmonary disease, unspecified (5) IDDM (insulin dependent diabetes mellitus) Code(s): E11.9 - TYPE 2 DIABETES MELLITUS WITHOUT COMPLICATIONS; Z79.4 - EYE PHYSICIAN (CURRENT) USE OF INSULIN (6) Sleep apnea Code(s): G47.30 - SLEEP APNEA, UNSPECIFIED Qualifiers: Sleep apnea type: unspecified type Qualified Code(s): G47.30 - Sleep apnea , unspecified Assessment/Plan 05/02/2018 Echocardiography revealed systolic LV dysfunction with LVEF 40-45%, moderate (mean gradient of 27.7 and peak gradient 46 mmHg, LYNETTE of 0.78 cm2), mild MR, mild to moderate TR 1. Acute on chronic LV failure class 2-3 NYHA classification LV failure referable to systolic/diastolic heart failure 2. CAD, s/p PCI/stent, angina pectoris 3. Persistent AF [id number] score of 6 on anticoagulation with Xarelto 4. AV block s/p PPM 5. HTN 6. Hypercholesterolemia 7. DM 8. COPD 9. Acute on CKD, hyperkalemia 10. Anemia 11. BPH s/p TURP PLAN: 1. IV diuretics with monitor diuretic response, renal fxn and electrolytes 2. Continue Carvedilol 6.25 bid, Cozaar 50 qd, Lipitor 40 qhs, Cardura 8 qhs, Ranexa 500 bid, Lovaza, Xarelto 20 qPM
--- NOTE | 2018-06-14 15:52 | PN ---
Physical Exam: SUBJECTIVE: Patient seen and examined at bedside this morning. No acute events overnight. Patient has no new complaints. OBJECTIVE: Vital Signs Period Temp Pulse Resp BP Sys/Kuo Pulse Ox Last 24 Hr 97.3 F-98.5 F 60-67 18-22 102-122/48-73 86-99 GENERAL: Awake, alert, and fully oriented, in no acute distress. HEAD: Normal with no signs of trauma. EYES: PERRLA, EOMI, sclera anicteric, conjunctiva clear. No lid lag. EARS, NOSE, THROAT: Ears normal, nares patent, oropharynx clear without exudates. Moist mucous membranes. NECK: Normal range of motion, supple without lymphadenopathy, JVD, or masses. LUNGS: +crackles bilaterally HEART: Regular rate and rhythm, normal S1 and S2 without murmur, rub or gallop. ABDOMEN: Soft, nontender, mildly distended, normoactive bowel sounds, no guarding, no rebound, no masses. MUSCULOSKELETAL: Normal range of motion at all joints. No bony deformities or tenderness. No CVA tenderness. UPPER EXTREMITIES: 2+ pulses, warm, well-perfused. No cyanosis. No clubbing. No peripheral edema. LOWER EXTREMITIES: 2+ pulses, warm, well-perfused. No calf tenderness. +2 bilateral pitting edema. +erythema on both lower legs with weeping. NEUROLOGICAL: Cranial nerves II-XII intact. Normal speech. Gait not observed. PSYCHIATRIC: Cooperative. Good eye contact. Appropriate mood and affect. SKIN: Warm, dry, normal turgor, no rashes or lesions noted, normal capillary refill. Laboratory Results - last 24 hr 06/13/18 06/13/18 06/14/18 17:18 21:38 06:38 WBC RBC Hgb Hct MCV MCH MCHC RDW Plt Count MPV Absolute Neuts (auto) Neutrophils % Lymphocytes % Monocytes % Eosinophils % Basophils % Nucleated RBC % Sodium Potassium Chloride Carbon Dioxide Anion Gap BUN Creatinine Creat Clearance w eGFR POC Glucometer 210 200 119 Random Glucose Calcium Phosphorus Magnesium 06/14/18 06/14/18 06/14/18 07:30 07:30 11:36 WBC 6.3 RBC 2.58 L Hgb 8.8 L Hct 26.7 L MCV 103.8 H MCH 34.3 H MCHC 33.0 RDW 18.5 H Plt Count 341 MPV 8.6 Absolute Neuts (auto) 4.2 Neutrophils % 67.4 Lymphocytes % 8.7 Monocytes % 13.4 H Eosinophils % 9.5 H Basophils % 1.0 Nucleated RBC % 0 Sodium 135 L Potassium 4.9 Chloride 101 Carbon Dioxide 29 Anion Gap 6 L BUN 42 H Creatinine 0.9 Creat Clearance w eGFR > 60 POC Glucometer 183 Random Glucose 93 Calcium 8.4 L Phosphorus 2.9 Magnesium 2.4 Active Medications Generic Name Dose Route Start Last Admin Trade Name Freq PRN Reason Stop Dose Admin Al Hydroxide/Mg Hydroxide 30 ml 06/10/18 15:01 06/11/18 11:13 Mylanta Oral Suspension - PO 30 ml Q6H PRN Administration DYSPEPSIA Atorvastatin Calcium 40 mg 06/10/18 22:00 06/13/18 21:41 Lipitor - PO 40 mg HS [facility] Administration Carvedilol 6.25 mg 06/10/18 13:21 06/14/18 08:35 Coreg - PO 6.25 mg BID@0800,2000 [facility] Administration Doxazosin Mesylate 8 mg 06/10/18 22:00 06/13/18 21:50 Cardura - PO 8 mg HS [facility] Administration Ferrous Sulfate 325 mg 06/10/18 10:00 06/14/18 10:52 Feosol - PO 325 mg DAILY [facility] Administration Furosemide 60 mg 06/10/18 10:00 06/14/18 10:52 Lasix Injection - IVPUSH 60 mg DAILY [facility] Administration Insulin Aspart 1 vial 06/10/18 07:00 06/14/18 11:55 Novolog Vial Sliding Scale - SQ Not Given [facility] Protocol Insulin Detemir 22 units 06/10/18 22:00 06/13/18 21:41 Levemir Vial SQ 22 units HS [facility] Administration Losartan Potassium 50 mg 06/10/18 10:00 06/14/18 10:52 Cozaar - PO 50 mg DAILY [facility] Administration Rnsjy-9-Nezb Ethyl Esters 1 gm 06/10/18 10:00 06/14/18 10:52 Lovaza - PO 1 gm DAILY [facility] Administration Polyethylene Glycol 17 gm 06/10/18 10:00 06/14/18 10:58 Miralax (For Bowel Prep) - PO 17 gm BID [facility] Administration Ranolazine 500 mg 06/10/18 10:00 06/14/18 10:52 Ranexa - PO 500 mg BID [facility] Administration Rivaroxaban 20 mg 06/10/18 18:00 06/13/18 18:47 Xarelto - PO 20 mg DAILY@1800 [facility] Administration Senna/Docusate Sodium 1 tablet 06/10/18 10:00 06/14/18 10:52 Pericolace - PO 1 tablet BID [facility] Administration Silver Sulfadiazine 1 applic 06/10/18 15:50 06/14/18 10:56 Silvadene - TP 1 applic BID [facility] Administration ASSESSMENT/PLAN: Patient is an 83 year old male with past medical history of CHF, COPD, HTN, HLD , CAD (s/p stenting x7 and pacemaker), DM, chronic venous insufficiency, BPH, Skin cancer and anemia, presented with worsening shortness of breath, diffuse edema, productive cough and weight gain for a few weeks. #SOB, leg swelling, weight gain: likely 2/2 CHF exacerbation -Continue IV Lasix 60mg daily -One dose 40mg IV lasix given -Monitor I&O -Daily weights - baseline weight from last discharge is 192lbs. -Weight 87.27kg --> 86.90 kg today. -Aldactone 25mg BID -Pre and post done today. Patient will need oxygen on discharge. #JENNYFER on CKD: likely pre-renal, resolved -Nephrology consulted. -Avoid nephrotoxic agents such as NSAIDs, aminoglycosides, and contrast dyes #Anemia -VitB12, Folate, FOBT, Retic count, iron studies done #DM -Resume Levemir 22units HS -BGM ACHS -ISS ACHS #Hypertension -Continue Coreg 6.25 BID, Losartan 50mg daily #Hyperlipidemia -continue Atovastatin 40mg HS #CAD s/p stenting x7 and pacemaker -continue Lipitor 40, Ranexa 500 mg BID #Atrial fibrillation -Continue Xarelto 20mg BID #BPH -resume Cardura 8mg #FEN -Not on any standing fluids -lytes wnl, routine bmp monitoring -diabetic/sodium restricted diet #Prophylaxis -on Xarelto 20mg #Disposition -full code -admit to med surg Visit type - Emergency Visit Emergency Visit: Yes ED Registration Date: 06/09/18 Care time: The patient presented to the Emergency Department on the above date and was hospitalized for further evaluation of their emergent condition. - New Patient This patient is new to me today: Yes Date on this admission: 06/14/18 - Critical Care Critical Care patient: No
[2018-06-14] MEDS ORDERED: INSULIN (NOVOLOG) ASPART 100 UNITS/ML 10ML VIAL ONE ×2 (16:57→22:18)
[2018-06-14] MEDS: RIVAROXABAN 20 MG TABLET PO SCH (17:18)
[2018-06-14] MEDS ORDERED: BENZOCAINE/MENTH/CETYLPYRD CL 1 EACH LOZENGE MM ONE (18:33)
[2018-06-14] MEDS: RANITIDINE HCL 150 MG TABLET (FP) PO ONE ×2 (19:24→20:28)
--- NOTE | 2018-06-14 19:51 | HOSP ---
Subjective - Review of Symptoms Events since last encounter: Paged by nursing staff that patient is having chest pain. Patient complains it is heart burn and would like his home dose Cepacol. Patient says the pain is in the midsternum, unable to quantify, does not radiate anywhere, does not change with breathing and is not reproducible. Patient does not move his left arm due to shoulder pain however he mentions the pain does not change with position. Denies any SOB. During my interview, he is actively spitting up clear fluid into a towel. Physical Examination Vital Signs: Vital Signs Temperature 97.7 F 06/14/18 18:00 Pulse Rate 60 06/14/18 18:00 Respiratory Rate 20 06/14/18 18:00 Blood Pressure 129/64 06/14/18 18:00 O2 Sat by Pulse Oximetry (%) 97 06/14/18 17:00 Findings/Remarks: Vital Signs: 110/60, HR 61, O2 Sats 97% (on 3L) General: A&Ox3, Sitting upright, Anxious and in mild distress, spitting up clear fluid, speaking in full sentences Neck: No JVD Chest: Pacemaker placed under skin near the left clavicle, no obvious signs of trauma or rash Lungs: Bibasilar crackles, On 3L via NC Heart: RRR, S1 S2, No Murmurs Abdomen: Soft, nontender, + bowel sounds Labs: CBC, BMP 06/14/18 07:30 06/14/18 07:30 Hospitalist Encounter Assessment: Chest Pain -EKG, Troponin ordered stat -Ordered home dose cepacol -Ordered to give night dose ranexa early, patient refused -Ordered Zatac, patient refused Visit type - Emergency Visit Emergency Visit: Yes ED Registration Date: 06/09/18 Care time: The patient presented to the Emergency Department on the above date and was hospitalized for further evaluation of their emergent condition. - New Patient This patient is new to me today: No - Critical Care Critical Care patient: No
[2018-06-14] MEDS: BENZOCAINE/MENTH/CETYLPYRD CL 1 EACH LOZENGE MM PRN (21:03)
[2018-06-14] MEDS ORDERED: INSULIN (LEVEMIR) 100 UNITS/ML UNITS SQ ONE (22:17)
[2018-06-14] MEDS: ATORVASTATIN CA 40 MG TABLET (FP) PO SCH (23:11)
[2018-06-14] MEDS: INSULIN (LEVEMIR) 100 UNITS/ML UNITS SQ SCH (23:13)
[2018-06-14] MEDS: DOXAZOSIN MESYLATE 4 MG TABLET PO SCH (23:25)
[2018-06-15] MEDS: INSULIN SLIDING SCALE (NOVOLOG) 1 VIAL SQ SCH ×4 (06:12→21:37)
[2018-06-15] MEDS ORDERED: INSULIN (LEVEMIR) 100 UNITS/ML UNITS SQ ONE ×2 (06:25→20:39)
[2018-06-15 07:26] LABS: BASO % 1.1 % (0-2.0); HEMATOCRIT 25.5 % (35.4-49); HEMOGLOBIN 8.6 GM/dL (11.7-16.9); LYMPH % 9.2 % (8-40); MCH 34.6 pg (25.7-33.7); MCHC 33.7 g/dl (32.0-35.9); MEAN CELL VOLUME 102.9 fl (80-96); MEAN PLT VOLUME 8.6 fl (7.5-11.1); MONO % 15.3 % (3.8-10.2); NEUT % 71.4 % (42.8-82.8); PLATELET COUNT 318 K/MM3 (134-434); RBC 2.47 M/mm3 (4.00-5.60); RDW 18.5 % (11.9-15.9); WHITE BLOOD COUNT 6.3 K/mm3 (4.0-10.0)
[2018-06-15 08:00] LABS: ALK PHOS 114 U/L (45-117); ANION GAP 4 MMOL/L (8-16); BILIRUBIN,TOTAL 0.5 mg/dL (0.2-1); BLOOD UREA NITROGEN 39 mg/dL (7-18); CALCIUM 8.8 mg/dL (8.5-10.1); CHLORIDE 102 mmol/L (98-107); CO2 30 mmol/L (21-32); GLUCOSE,RANDOM 91 mg/dL (74-106); MAGNESIUM 2.1 mg/dL (1.8-2.4); PHOSPHOROUS 2.9 mg/dL (2.5-4.9); SGOT/AST 41 U/L (15-37); SGPT/ALT 36 U/L (13-61); SODIUM 136 mmol/L (136-145); TOT PROT 5.6 g/dl (6.4-8.2)
--- NOTE | 2018-06-15 08:07 | PN ---
Teaching Attending Note Name of Resident: Capri Erickson ATTENDING PHYSICIAN STATEMENT I saw and evaluated the patient. I reviewed the resident's note and discussed the case with the resident. I agree with the resident's findings and plan as documented with exceptions below. SUBJECTIVE: Patient seen and examined. breathing swelling improved, no new complaints. OBJECTIVE: Vital Signs Period Temp Pulse Resp BP Sys/Kuo Pulse Ox Last 24 Hr 97.3 F-98.5 F 60-64 18-22 101-129/48-72 96-99 Intake & Output 06/12/18 06/13/18 06/14/18 06/15/18 23:59 23:59 23:59 23:59 Intake Total 1050 1045 600 Output Total 2300 800 350 350 Balance -1250 245 250 -350 Weight 193 lb 192 lb 6.4 oz 191 lb 9.6 oz 185 lb 11.2 oz General: sitting in bed in no acute distress Chest: good air entry, no rales or wheezing appreciated Abdomen: soft, obese, NT Extremities: improved pedal edema, mild weeping from RLE wound, no concerns for infection Active Medications Al Hydroxide/Mg Hydroxide (Mylanta Oral Suspension -) 30 ml PO Q6H PRN PRN Reason: DYSPEPSIA Last Admin: 06/11/18 11:13 Dose: 30 ml Atorvastatin Calcium (Lipitor -) 40 mg PO HS [facility] Last Admin: 06/14/18 23:11 Dose: 40 mg Benzocaine/Menthol (Cepacol Lozenge -) 2 each MM PRN PRN PRN Reason: SORE THROAT Last Admin: 06/14/18 21:03 Dose: 2 each Carvedilol (Coreg -) 6.25 mg PO BID@0800,2000 [facility] Last Admin: 06/14/18 21:44 Dose: Not Given Doxazosin Mesylate (Cardura -) 8 mg PO HS [facility] Last Admin: 06/14/18 23:25 Dose: 8 mg Ferrous Sulfate (Feosol -) 325 mg PO DAILY [facility] Last Admin: 06/14/18 10:52 Dose: 325 mg Furosemide (Lasix Injection -) 40 mg IVPUSH BID@0600,1400 [facility] Insulin Aspart (Novolog Vial Sliding Scale -) 1 vial SQ [facility]; Protocol Last Admin: 06/15/18 06:12 Dose: Not Given Insulin Detemir (Levemir Vial) 22 units SQ HS [facility] Last Admin: 06/14/18 23:13 Dose: 22 units Losartan Potassium (Cozaar -) 50 mg PO DAILY [facility] Last Admin: 06/14/18 10:52 Dose: 50 mg Iizam-0-Krnd Ethyl Esters (Lovaza -) 1 gm PO DAILY [facility] Last Admin: 06/14/18 10:52 Dose: 1 gm Polyethylene Glycol (Miralax (For Bowel Prep) -) 17 gm PO BID [facility] Last Admin: 06/14/18 23:11 Dose: Not Given Ranolazine (Ranexa -) 500 mg PO BID [facility] Last Admin: 06/14/18 23:14 Dose: Not Given Rivaroxaban (Xarelto -) 20 mg PO DAILY@1800 [facility] Last Admin: 06/14/18 17:18 Dose: 20 mg Senna/Docusate Sodium (Pericolace -) 1 tablet PO BID [facility] Last Admin: 06/14/18 23:11 Dose: 1 tablet Silver Sulfadiazine (Silvadene -) 1 applic TP BID [facility] Last Admin: 06/14/18 23:14 Dose: Not Given Laboratory Results - last 24 hr 06/14/18 06/14/18 06/14/18 07:30 07:30 11:36 WBC 6.3 RBC 2.58 L Hgb 8.8 L Hct 26.7 L MCV 103.8 H MCH 34.3 H MCHC 33.0 RDW 18.5 H Plt Count 341 MPV 8.6 Absolute Neuts (auto) 4.2 Neutrophils % 67.4 Lymphocytes % 8.7 Monocytes % 13.4 H Eosinophils % 9.5 H Basophils % 1.0 Nucleated RBC % 0 Sodium 135 L Potassium 4.9 Chloride 101 Carbon Dioxide 29 Anion Gap 6 L BUN 42 H Creatinine 0.9 Creat Clearance w eGFR > 60 POC Glucometer 183 Random Glucose 93 Calcium 8.4 L Phosphorus 2.9 Magnesium 2.4 Total Bilirubin AST ALT Alkaline Phosphatase Troponin I Total Protein Albumin 06/14/18 06/14/18 06/14/18 17:17 20:45 23:12 WBC RBC Hgb Hct MCV MCH MCHC RDW Plt Count MPV Absolute Neuts (auto) Neutrophils % Lymphocytes % Monocytes % Eosinophils % Basophils % Nucleated RBC % Sodium Potassium Chloride Carbon Dioxide Anion Gap BUN Creatinine Creat Clearance w eGFR POC Glucometer 133 183 Random Glucose Calcium Phosphorus Magnesium Total Bilirubin AST ALT Alkaline Phosphatase Troponin I 0.02 Total Protein Albumin 06/15/18 06/15/18 06/15/18 06:01 06:40 06:40 WBC 6.3 RBC 2.47 L Hgb 8.6 L Hct 25.5 L MCV 102.9 H MCH 34.6 H MCHC 33.7 RDW 18.5 H Plt Count 318 MPV 8.6 Absolute Neuts (auto) 4.5 Neutrophils % 71.4 Lymphocytes % 9.2 Monocytes % 15.3 H Eosinophils % 3.0 Basophils % 1.1 Nucleated RBC % 0 Sodium 136 Potassium 5.0 Chloride 102 Carbon Dioxide 30 Anion Gap 4 L BUN 39 H Creatinine 1.0 Creat Clearance w eGFR > 60 POC Glucometer 118 Random Glucose 91 Calcium 8.8 Phosphorus 2.9 Magnesium 2.1 Total Bilirubin 0.5 AST 41 H ALT 36 Alkaline Phosphatase 114 Troponin I Total Protein 5.6 L Albumin 3.0 L Microbiology 06/11/18 03:00 Urine - Urine Clean Catch Urine Culture - Final Contaminated: Please Repeat ASSESSMENT AND PLAN: 83yo M with PMH systolic CHF, COPD not on home O2, WILLIS on cpap, CAD s/p stents , HTN, S/p PPM, BPH s/p TURP, afib on xarelto presented to the Er wtih progressively worsening SOB with cough and orthopnea and found to be in acute on chronic systolic CHF -Acute on chronic systolic/diastolic heart failure exacerbation -JENNYFER, likely from above, resolved -Hyperkalemia -CAD s/p PCI -Atrial fibrillation on xarelto -s/p PPM -CAD s/p PCI -HTN -IDDM -BPHs/p TURP Plan; Volume status improving, still hypoxic with activity. No oxygen needs noted on recent d/c in 05/2018. Weight improved. Change lasix to 40 mg IV BID with strict I/os, daily weights and renal function/ lytes monitoring. Cardiology input noted. Renal function improved. Hold spironolactone. Low K diet. Losartan based on renal function/K levels. Continue coreg/ranexa/asa -Levemir, ISS, DiAbetic diet. AM hypoglycemia, hold repaglinide for now. DVTPPX xarelto Dispo d/c to [facility] in 24 hours if volume status continues to improve and no concerns. Oxygen needs assessment prior to d/c. plan discussed with patient in detail, all questions answered.
[2018-06-15] MEDS: CARVEDILOL 6.25 MG TABLET (FP) PO SCH ×2 (08:49→20:25)
[2018-06-15] MEDS: SENNOSIDES/DOCUSATE COMBO (SENNA PLUS) TABLET (UD) PO SCH ×2 (09:34→21:35)
[2018-06-15] MEDS: FERROUS SO4 325 MG TABLET (FP) PO SCH (09:34)
[2018-06-15] MEDS: OMEGA-3 ACID ETHYL ESTERS (FATTY-ACIDS) 1 GM CAPSULE (FP) PO SCH (09:35)
[2018-06-15] MEDS: RANOLAZINE E.R. 500 MG TABLET (FP) PO SCH ×2 (09:35→21:35)
[2018-06-15] MEDS: LOSARTAN POTASSIUM 50 MG TABLET (FP) PO SCH (09:35)
[2018-06-15] MEDS: POLYETHYLENE GLYCOL 3350 255 GM BTL PO SCH ×2 (09:36→21:38)
[2018-06-15] MEDS: BENZOCAINE/MENTH/CETYLPYRD CL 1 EACH LOZENGE MM PRN (09:46)
[2018-06-15] MEDS ORDERED: INSULIN (NOVOLOG) ASPART 100 UNITS/ML 10ML VIAL ONE ×2 (11:00→16:37)
--- NOTE | 2018-06-15 11:21 | PN ---
Progress Note, Physician History of Present Illness: Dyspnea resolving with diuresis. - Current Medication List Current Medications: Active Medications Al Hydroxide/Mg Hydroxide (Mylanta Oral Suspension -) 30 ml PO Q6H PRN PRN Reason: DYSPEPSIA Last Admin: 06/11/18 11:13 Dose: 30 ml Atorvastatin Calcium (Lipitor -) 40 mg PO HS [facility] Last Admin: 06/14/18 23:11 Dose: 40 mg Benzocaine/Menthol (Cepacol Lozenge -) 2 each MM PRN PRN PRN Reason: SORE THROAT Last Admin: 06/15/18 09:46 Dose: 2 each Carvedilol (Coreg -) 6.25 mg PO BID@0800,2000 [facility] Last Admin: 06/15/18 08:49 Dose: 6.25 mg Doxazosin Mesylate (Cardura -) 8 mg PO HS [facility] Last Admin: 06/14/18 23:25 Dose: 8 mg Ferrous Sulfate (Feosol -) 325 mg PO DAILY [facility] Last Admin: 06/15/18 09:34 Dose: 325 mg Furosemide (Lasix Injection -) 40 mg IVPUSH BID@0600,1400 [facility] Insulin Aspart (Novolog Vial Sliding Scale -) 1 vial SQ [facility]; Protocol Last Admin: 06/15/18 11:05 Dose: Not Given Insulin Detemir (Levemir Vial) 22 units SQ [facility] Last Admin: 06/14/18 23:13 Dose: 22 units Losartan Potassium (Cozaar -) 50 mg PO DAILY [facility] Last Admin: 06/15/18 09:35 Dose: 50 mg Vvixc-4-Gwqk Ethyl Esters (Lovaza -) 1 gm PO DAILY [facility] Last Admin: 06/15/18 09:35 Dose: 1 gm Polyethylene Glycol (Miralax (For Bowel Prep) -) 17 gm PO BID [facility] Last Admin: 06/15/18 09:36 Dose: 17 gm Ranolazine (Ranexa -) 500 mg PO BID [facility] Last Admin: 06/15/18 09:35 Dose: 500 mg Rivaroxaban (Xarelto -) 20 mg PO DAILY@1800 [facility] Last Admin: 06/14/18 17:18 Dose: 20 mg Senna/Docusate Sodium (Pericolace -) 1 tablet PO BID [facility] Last Admin: 06/15/18 09:34 Dose: 1 tablet Silver Sulfadiazine (Silvadene -) 1 applic TP BID [facility] Last Admin: 06/14/18 23:14 Dose: Not Given - Objective Vital Signs: Vital Signs Temperature 98 F 06/15/18 08:45 Pulse Rate 72 06/15/18 08:45 Respiratory Rate 20 06/15/18 08:45 Blood Pressure 110/72 06/15/18 08:45 O2 Sat by Pulse Oximetry (%) 97 06/15/18 08:36 Constitutional: Yes: No Distress, Calm Neck: Yes: Supple Cardiovascular: Yes: Regular Rate and Rhythm Respiratory: Yes: Regular, Diminished, On Nasal O2 Gastrointestinal: Yes: Normal Bowel Sounds, Soft, Abdomen, Obese Edema: Yes Edema: LLE: Trace, RLE: Trace Labs: CBC, BMP 06/15/18 06:40 06/15/18 06:40 INR, PTT INR 1.75 (0.83-1.09) H 06/09/18 18:15 Problem List - Problems (1) CHF exacerbation Code(s): I50.9 - HEART FAILURE, UNSPECIFIED Qualifiers: Heart failure type: combined systolic and diastolic Qualified Code(s): I50.43 - Acute on chronic combined systolic (congestive) and diastolic ( congestive) heart failure (2) History of percutaneous coronary intervention Code(s): Z98.890 - OTHER SPECIFIED POSTPROCEDURAL STATES (3) ASHD (arteriosclerotic heart disease) Code(s): I25.10 - ATHSCL HEART DISEASE OF [place] CORONARY ARTERY W/O ANG PCTRS (4) COPD (chronic obstructive pulmonary disease) Code(s): J44.9 - CHRONIC OBSTRUCTIVE PULMONARY DISEASE, UNSPECIFIED Qualifiers: COPD type: unspecified COPD Qualified Code(s): J44.9 - Chronic obstructive pulmonary disease, unspecified (5) IDDM (insulin dependent diabetes mellitus) Code(s): E11.9 - TYPE 2 DIABETES MELLITUS WITHOUT COMPLICATIONS; Z79.4 - PRISON (CURRENT) USE OF INSULIN (6) Sleep apnea Code(s): G47.30 - SLEEP APNEA, UNSPECIFIED Qualifiers: Sleep apnea type: unspecified type Qualified Code(s): G47.30 - Sleep apnea , unspecified Assessment/Plan 05/02/2018 Echocardiography revealed systolic LV dysfunction with LVEF 40-45%, moderate (mean gradient of 27.7 and peak gradient 46 mmHg, LYNETTE of 0.78 cm2), mild MR, mild to moderate TR 1. Acute on chronic LV failure class 2-3 NYHA classification LV failure referable to systolic/diastolic heart failure 2. CAD, s/p PCI/stent, angina pectoris 3. Persistent AF [id number] score of 6 on anticoagulation with Xarelto 4. AV block s/p PPM 5. HTN 6. Hypercholesterolemia 7. DM 8. COPD 9. Acute on CKD, hyperkalemia 10. Anemia 11. BPH s/p TURP PLAN: 1. IV diuretics with monitor diuretic response, renal fxn and electrolytes 2. Continue Carvedilol 6.25 bid, Cozaar 50 qd, Lipitor 40 qhs, Cardura 8 qhs, Ranexa 500 bid, Lovaza, Xarelto 20 qPM
--- NOTE | 2018-06-15 12:09 | EKG ---
Test Reason : Blood Pressure : / mmHG Vent. Rate : 060 BPM Atrial Rate : 060 BPM P-R Int : 000 ms QRS Dur : 162 ms QT Int : 528 ms P-R-T Axes : 000 -71 116 degrees QTc Int : 528 ms Ventricular-paced rhythm WITH OCCASIONAL PREMATURE VENTRICULAR COMPLEXES ABNORMAL ECG WHEN COMPARED WITH ECG OF 13-JUN-2018 05:39, PREMATURE VENTRICULAR COMPLEXES ARE NOW PRESENT Confirmed by SOFIA ARANDA, VERONIKA ([id number]) on 06/15/2018 12:09:46 PM Referred By: Confirmed By:VERONIKA BLACK MD
--- NOTE | 2018-06-15 12:32 | PN ---
Physical Exam: SUBJECTIVE: Patient seen and examined at bedside today. Patient reported to have chest pain last night. Requested for Cepacol, which provided minimal relief. EKG done showed no change, Trop was negative. Patient was reported to be more confused last night, disturbing his roommate, semaj vest was placed. OBJECTIVE: Vital Signs Period Temp Pulse Resp BP Sys/Kuo Pulse Ox Last 24 Hr 97.7 F-98.5 F 60-72 20-22 101-129/48-72 96-97 GENERAL: Awake, alert, and fully oriented, in no acute distress. HEAD: Normal with no signs of trauma. EYES: PERRLA, EOMI, sclera anicteric, conjunctiva clear. No lid lag. EARS, NOSE, THROAT: Ears normal, nares patent, oropharynx clear without exudates. Moist mucous membranes. NECK: Normal range of motion, supple without lymphadenopathy, JVD, or masses. LUNGS: +crackles bilaterally HEART: Regular rate and rhythm, normal S1 and S2 without murmur, rub or gallop. ABDOMEN: Soft, nontender, mildly distended, normoactive bowel sounds, no guarding, no rebound, no masses. MUSCULOSKELETAL: Normal range of motion at all joints. No bony deformities or tenderness. No CVA tenderness. UPPER EXTREMITIES: 2+ pulses, warm, well-perfused. No cyanosis. No clubbing. No peripheral edema. LOWER EXTREMITIES: 2+ pulses, warm, well-perfused. No calf tenderness. +2 bilateral pitting edema. +erythema on both lower legs with weeping. NEUROLOGICAL: Cranial nerves II-XII intact. Normal speech. Gait not observed. PSYCHIATRIC: Cooperative. Good eye contact. Appropriate mood and affect. SKIN: Warm, dry, normal turgor, no rashes or lesions noted, normal capillary refill. Laboratory Results - last 24 hr 06/14/18 06/14/18 06/14/18 17:17 20:45 23:12 WBC RBC Hgb Hct MCV MCH MCHC RDW Plt Count MPV Absolute Neuts (auto) Neutrophils % Lymphocytes % Monocytes % Eosinophils % Basophils % Nucleated RBC % Sodium Potassium Chloride Carbon Dioxide Anion Gap BUN Creatinine Creat Clearance w eGFR POC Glucometer 133 183 Random Glucose Calcium Phosphorus Magnesium Total Bilirubin AST ALT Alkaline Phosphatase Troponin I 0.02 Total Protein Albumin 06/15/18 06/15/18 06/15/18 06:01 06:40 06:40 WBC 6.3 RBC 2.47 L Hgb 8.6 L Hct 25.5 L MCV 102.9 H MCH 34.6 H MCHC 33.7 RDW 18.5 H Plt Count 318 MPV 8.6 Absolute Neuts (auto) 4.5 Neutrophils % 71.4 Lymphocytes % 9.2 Monocytes % 15.3 H Eosinophils % 3.0 Basophils % 1.1 Nucleated RBC % 0 Sodium 136 Potassium 5.0 Chloride 102 Carbon Dioxide 30 Anion Gap 4 L BUN 39 H Creatinine 1.0 Creat Clearance w eGFR > 60 POC Glucometer 118 Random Glucose 91 Calcium 8.8 Phosphorus 2.9 Magnesium 2.1 Total Bilirubin 0.5 AST 41 H ALT 36 Alkaline Phosphatase 114 Troponin I Total Protein 5.6 L Albumin 3.0 L 06/15/18 11:04 WBC RBC Hgb Hct MCV MCH MCHC RDW Plt Count MPV Absolute Neuts (auto) Neutrophils % Lymphocytes % Monocytes % Eosinophils % Basophils % Nucleated RBC % Sodium Potassium Chloride Carbon Dioxide Anion Gap BUN Creatinine Creat Clearance w eGFR POC Glucometer 120 Random Glucose Calcium Phosphorus Magnesium Total Bilirubin AST ALT Alkaline Phosphatase Troponin I Total Protein Albumin Active Medications Generic Name Dose Route Start Last Admin Trade Name Freq PRN Reason Stop Dose Admin Al Hydroxide/Mg Hydroxide 30 ml 06/10/18 15:01 06/11/18 11:13 Mylanta Oral Suspension - PO 30 ml Q6H PRN Administration DYSPEPSIA Atorvastatin Calcium 40 mg 06/10/18 22:00 06/14/18 23:11 Lipitor - PO 40 mg HS [facility] Administration Benzocaine/Menthol 2 each 06/14/18 20:28 06/15/18 09:46 Cepacol Lozenge - MM 2 each PRN PRN Administration SORE THROAT Carvedilol 6.25 mg 06/10/18 13:21 06/15/18 08:49 Coreg - PO 6.25 mg BID@0800,2000 [facility] Administration Doxazosin Mesylate 8 mg 06/10/18 22:00 06/14/18 23:25 Cardura - PO 8 mg HS [facility] Administration Ferrous Sulfate 325 mg 06/10/18 10:00 06/15/18 09:34 Feosol - PO 325 mg DAILY [facility] Administration Furosemide 40 mg 06/15/18 14:00 Lasix Injection - IVPUSH BID@0600,1400 [facility] Insulin Aspart 1 vial 06/10/18 07:00 06/15/18 11:05 Novolog Vial Sliding Scale - SQ Not Given ACHS [facility] Protocol Insulin Detemir 22 units 06/10/18 22:00 06/14/18 23:13 Levemir Vial SQ 22 units HS [facility] Administration Losartan Potassium 50 mg 06/10/18 10:00 06/15/18 09:35 Cozaar - PO 50 mg DAILY [facility] Administration Luvjb-0-Apzm Ethyl Esters 1 gm 06/10/18 10:00 06/15/18 09:35 Lovaza - PO 1 gm DAILY [facility] Administration Polyethylene Glycol 17 gm 06/10/18 10:00 06/15/18 09:36 Miralax (For Bowel Prep) - PO 17 gm BID [facility] Administration Ranolazine 500 mg 06/10/18 10:00 06/15/18 09:35 Ranexa - PO 500 mg BID [facility] Administration Rivaroxaban 20 mg 06/10/18 18:00 06/14/18 17:18 Xarelto - PO 20 mg DAILY@1800 [facility] Administration Senna/Docusate Sodium 1 tablet 06/10/18 10:00 06/15/18 09:34 Pericolace - PO 1 tablet BID [facility] Administration Silver Sulfadiazine 1 applic 06/10/18 15:50 06/14/18 23:14 Silvadene - TP Not Given BID [facility] ASSESSMENT/PLAN: Patient is an 83 year old male with past medical history of CHF, COPD, HTN, HLD , CAD (s/p stenting x7 and pacemaker), DM, chronic venous insufficiency, BPH, Skin cancer and anemia, presented with worsening shortness of breath, diffuse edema, productive cough and weight gain for a few weeks. #SOB, leg swelling, weight gain: likely 2/2 CHF exacerbation -Continue IV Lasix 60mg daily -Monitor I&O -Daily weights - baseline weight from last discharge is 192lbs. -Weight 86.90kg --> 83.91 kg today. -Aldactone 25mg BID -Pre and post done today. Patient will need oxygen on discharge. #JENNYFER on CKD: likely pre-renal, resolved -Nephrology consulted. -Avoid nephrotoxic agents such as NSAIDs, aminoglycosides, and contrast dyes #Anemia -VitB12, Folate, FOBT, Retic count, iron studies done #DM -Resume Levemir 22units HS -BGM ACHS -ISS ACHS #Hypertension -Continue Coreg 6.25 BID, Losartan 50mg daily #Hyperlipidemia -continue Atorvastatin 40mg HS #CAD s/p stenting x7 and pacemaker -continue Lipitor 40, Ranexa 500 mg BID #Atrial fibrillation -Continue Xarelto 20mg BID #BPH -resume Cardura 8mg #Dysphagia -As per nurse, patient was coughing while eating tuna sandwich -Speech and swallow evaluation. Recommendations appreciated. -Diet Consistency: Dysphagia Minced (extra gravy) -Liquids: Thin Liquids #FEN -Not on any standing fluids -lytes wnl, routine bmp monitoring -diabetic/sodium restricted diet #Prophylaxis -on Xarelto 20mg #Disposition -full code -admit to med surg Visit type - Emergency Visit Emergency Visit: Yes ED Registration Date: 06/09/18 Care time: The patient presented to the Emergency Department on the above date and was hospitalized for further evaluation of their emergent condition. - New Patient This patient is new to me today: Yes Date on this admission: 06/15/18 - Critical Care Critical Care patient: No
[2018-06-15] MEDS: SILVER SULFADIAZINE 1% TOP CREAM 400 GM JAR TP SCH ×2 (13:00→22:04)
[2018-06-15 14:58] VITALS: BMI 29.8
[2018-06-15] MEDS: FUROSEMIDE 40 MG/4 ML INJECTABLE VIAL IVPUSH SCH (14:58)
--- NOTE | 2018-06-15 15:01 | CONSULT ---
Admitting History and Physical - Primary Care Physician PCP: Carol Vazquez - Admission History of Present Illness: 83yo M with PMH systolic CHF, COPD not on home O2, WILLIS on cpap, CAD s/p stents , HTN, S/p PPM, BPH s/p TURP, afib on xarelto presented to the Er wtih progressively worsening SOB with cough and orthopnea and found to be in acute on chronic systolic CHF Referred for swallowing evaluation after observed coughing while eating a sandwich. Selected Entries 06/13/18 06/13/18 06/13/18 09:44 14:28 17:50 Breakfast 100% Lunch 100% Supper 100% Temperature 06/14/18 06/14/18 06/14/18 06:00 08:37 09:00 Breakfast Lunch Supper Temperature 97.5 F L 97.3 F L 97.3 F L 06/14/18 06/14/18 06/14/18 11:06 12:11 15:44 Breakfast 50% Lunch 50% Supper Temperature 97.6 F 97.5 F L 98.5 F 06/14/18 06/14/18 06/15/18 18:00 18:35 02:00 Breakfast Lunch Supper 75% Temperature 97.7 F 98.2 F 06/15/18 06/15/18 06/15/18 06:00 08:45 09:44 Breakfast 100% Lunch Supper Temperature 98.2 F 98 F Laboratory Tests 06/15/18 06:40 WBC 6.3 Downgraded to chopped diet. Confused/hallucinations reported. This is my first consult with this pt. Pt rambles, with anomia, occasional word errors, although he seems fairly oriented. Unclear if he is confabulating, reporting a h/o severe esophageal ulcers since , with problems with friction of food and severe pain resulting. Pt was on a reg diet at [facility]. Noted to be coughing with tuna sandwhich today.Downgraded to chopped diet by LAURI. No GI imaging noted in EMR. History Source: Patient, Medical Record Limitations to Obtaining History: Clinical Condition - Past Medical History Cardiovascular: Yes: AFIB, CAD, CHF, HTN, Hyperlipdemia Pulmonary: Yes: COPD, Sleep Apnea Renal/: Yes: BPH Heme/Onc: Yes: Anemia (macrocytic) Endocrine: Yes: Diabetes Mellitus - Past Surgical History Past Surgical History: Yes: Permanent Pacemaker, TURP - Smoking History Smoking history: Never smoked Have you smoked in the past 12 months: No Aproximately how many cigarettes per day: 0 - Alcohol/Substance Use Hx Alcohol Use: No - Social History ADL: Support Services History of Recent Travel: No History - Admission Reason For Visit: ACUTE KIDNEY INJURY,ACUTE ON CHRONIC C H F - Diagnostics X-ray: Report Reviewed - General Mental Status: Awake and Alert, Able to Follow Commands, Forgetful, Vague ( rambles,disorganized speech, anomic) Attention: Distractible (repeatedly closes eyes while speaking contnuously) Ability to Follow Directions: Good Head/Neck Control: WFL - Hearing Hearing: Normal Speech Evaluation - Communication Primary Language: YAKUT - Speech Production Able to Make Needs Known: Yes: WNL Intelligibility: Yes: WNL - Speech Characteristics Voice Loudness: Normal Voice Pitch: Yes: Normal Voice Phonatory-based Quality: Yes: Normal Speech Pattern: Impaired (rambles, disorganized) Nasal Resonance: Normal Articulation: Yes: Precise Rate of Speech: Too Fast - Language/Auditory Comprehension Follows: Yes: 1 Stage Simple Commands Observation: Able to respond to yes/no queries: Yes, Yes/No Confusion: No, Comprehends Conversational Speech: Yes - Language/Verbal Expression Aphasia: Yes: Anomia - Swallow Evaluation/Bedside Assessment Current Nutritional Intake: Other (chopped diet.) Oral Secretions: Yes: WFL Dentition: Yes: Edentulous (upper, no dentures), Dental Appliance Lower Facial Symmetry at Rest: Symmetrical Facial Symmetry on Retraction: Symmetrical Against Resistance Opening: Normal Against Resistance Closing: Normal Pucker Lips: Normal Smile: Normal Lingual Movement: Normal, Symmetric Lingual Speed of Movement: Normal Lingual Movement Strgth Against Opposition: Normal Lingual Movement Characteristics: Normal Velopharyngeal Movement: Normal Laryngeal Elevation: WFL Laryngeal Movement: Able to Palpate Rate of Intake: WFL Labial Seal: WFL Chewing: Impaired (limited. no upper dentition) Oral Prep Time: WFL A-P Transit: WFL Pocketing: None Timing of Swallow: WFL Odynophagia: Pharyngeal, Esophageal Coughing/Throat Clear: No Change in Voice: No Recommendations - Speech Evaluation, Impression/Plan Impression: Rambles, disorganized speech, but remembers name of staff and recent events. Reports "h/o severe esophageal ulcers" "friction of food causes choking and severe pain". r/o esophageal dysphagia - Dysphagia Impressions/Plan Swallowing Skills: Impaired Dysphagia Impressions: Risk of Aspiration *Silent aspiration: cannot be R/O at bedside Dysphagia Treatment Plan: Elevate HOB during feed, Other (Upright for 2 hours after meals) Recommendations: MBS w Esophagus, Other (pt wants room temperature food and liquids GERD precautions) - Recommendations Diet Consistency: Dysphagia Minced (extra gravy) Liquids: Thin Liquids
[2018-06-15] MEDS: RIVAROXABAN 20 MG TABLET PO SCH (18:05)
[2018-06-15] MEDS: DOXAZOSIN MESYLATE 4 MG TABLET PO SCH (21:35)
[2018-06-15] MEDS: ATORVASTATIN CA 40 MG TABLET (FP) PO SCH (21:35)
[2018-06-15] MEDS: INSULIN (LEVEMIR) 100 UNITS/ML UNITS SQ SCH (21:37)
[2018-06-16] MEDS: INSULIN SLIDING SCALE (NOVOLOG) 1 VIAL SQ SCH ×3 (06:10→16:17)
[2018-06-16] MEDS: FUROSEMIDE 40 MG/4 ML INJECTABLE VIAL IVPUSH SCH ×2 (06:10→16:08)
[2018-06-16] MEDS ORDERED: PT OWN MED DRAWER 7, Y5N ONE (06:57)
[2018-06-16] MEDS ORDERED: INSULIN (LEVEMIR) 100 UNITS/ML UNITS SQ ONE (06:57)
[2018-06-16] MEDS ORDERED: INSULIN (NOVOLOG) ASPART 100 UNITS/ML 10ML VIAL ONE ×2 (06:58→10:54)
[2018-06-16] MEDS: CARVEDILOL 6.25 MG TABLET (FP) PO SCH (08:57)
[2018-06-16] MEDS: RANOLAZINE E.R. 500 MG TABLET (FP) PO SCH (11:00)
[2018-06-16] MEDS: LOSARTAN POTASSIUM 50 MG TABLET (FP) PO SCH (11:01)
[2018-06-16] MEDS: FERROUS SO4 325 MG TABLET (FP) PO SCH (11:01)
[2018-06-16] MEDS: OMEGA-3 ACID ETHYL ESTERS (FATTY-ACIDS) 1 GM CAPSULE (FP) PO SCH (11:01)
[2018-06-16] MEDS: SENNOSIDES/DOCUSATE COMBO (SENNA PLUS) TABLET (UD) PO SCH (11:05)
[2018-06-16] MEDS: POLYETHYLENE GLYCOL 3350 255 GM BTL PO SCH (11:10)
[2018-06-16 11:26] LABS: ANION GAP 7 MMOL/L (8-16); BLOOD UREA NITROGEN 43 mg/dL (7-18); CALCIUM 8.2 mg/dL (8.5-10.1); CHLORIDE 99 mmol/L (98-107); CO2 30 mmol/L (21-32); CREATININE 1.1 mg/dL (0.55-1.3); GLUCOSE,RANDOM 123 mg/dL (74-106); PHOSPHOROUS 3.9 mg/dL (2.5-4.9); POTASSIUM 4.6 mmol/L (3.5-5.1); SODIUM 135 mmol/L (136-145)
--- NOTE | 2018-06-16 13:52 | PN ---
Teaching Attending Note Name of Resident: Capri Erickson ATTENDING PHYSICIAN STATEMENT I saw and evaluated the patient. I reviewed the resident's note and discussed the case with the resident. I agree with the resident's findings and plan as documented with exceptions below. SUBJECTIVE: Patient seen and examined. breathing improved,no new complaints. OBJECTIVE: Vital Signs Period Temp Pulse Resp BP Sys/Kuo Pulse Ox Last 24 Hr 97.5 F-98.2 F 59-62 20-22 103-135/63-65 92-98 Intake & Output 06/13/18 06/14/18 06/15/18 06/16/18 23:59 23:59 23:59 23:59 Intake Total 7931 731 2341 Output Total 391 850 1495 650 Balance 245 250 -810 -650 Weight 192 lb 6.4 oz 191 lb 9.6 oz 185 lb 183 lb 14.4 oz General: sitting in bed in no acute distress Chest; no rales or wheezing appreciated, good air entry Abdomen:soft, obese, NT Extremities: improved pedal edema Active Medications Al Hydroxide/Mg Hydroxide (Mylanta Oral Suspension -) 30 ml PO Q6H PRN PRN Reason: DYSPEPSIA Last Admin: 06/11/18 11:13 Dose: 30 ml Atorvastatin Calcium (Lipitor -) 40 mg PO [facility] Last Admin: 06/15/18 21:35 Dose: 40 mg Benzocaine/Menthol (Cepacol Lozenge -) 2 each MM PRN PRN PRN Reason: SORE THROAT Last Admin: 06/15/18 09:46 Dose: 2 each Carvedilol (Coreg -) 6.25 mg PO BID@0800,2000 [facility] Last Admin: 06/16/18 08:57 Dose: 6.25 mg Doxazosin Mesylate (Cardura -) 8 mg PO HS [facility] Last Admin: 06/15/18 21:35 Dose: 8 mg Ferrous Sulfate (Feosol -) 325 mg PO DAILY [facility] Last Admin: 06/16/18 11:01 Dose: 325 mg Furosemide (Lasix Injection -) 40 mg IVPUSH BID@0600,1400 [facility] Last Admin: 06/16/18 06:10 Dose: 40 mg Insulin Aspart (Novolog Vial Sliding Scale -) 1 vial SQ ACHS [facility]; Protocol Last Admin: 06/16/18 11:02 Dose: Not Given Insulin Detemir (Levemir Vial) 22 units SQ HS [facility] Last Admin: 06/15/18 21:37 Dose: 22 units Losartan Potassium (Cozaar -) 50 mg PO DAILY [facility] Last Admin: 06/16/18 11:01 Dose: 50 mg [id number] Ethyl Esters (Lovaza -) 1 gm PO DAILY [facility] Last Admin: 06/16/18 11:01 Dose: 1 gm Polyethylene Glycol (Miralax (For Bowel Prep) -) 17 gm PO BID [facility] Last Admin: 06/16/18 11:10 Dose: 17 gm Ranolazine (Ranexa -) 500 mg PO BID [facility] Last Admin: 06/16/18 11:00 Dose: 500 mg Rivaroxaban (Xarelto -) 20 mg PO DAILY@1800 [facility] Last Admin: 06/15/18 18:05 Dose: 20 mg Senna/Docusate Sodium (Pericolace -) 1 tablet PO BID [facility] Last Admin: 06/16/18 11:05 Dose: 1 tablet Silver Sulfadiazine (Silvadene -) 1 applic TP BID [facility] Last Admin: 06/15/18 22:04 Dose: Not Given Laboratory Results - last 24 hr 06/15/18 06/15/18 06/16/18 16:06 21:37 06:08 Sodium Potassium Chloride Carbon Dioxide Anion Gap BUN Creatinine Creat Clearance w eGFR POC Glucometer 230 194 50 Random Glucose Calcium Phosphorus Magnesium 06/16/18 06/16/18 06/16/18 07:26 07:57 10:50 Sodium 135 L Potassium 4.6 Chloride 99 Carbon Dioxide 30 Anion Gap 7 L BUN 43 H Creatinine 1.1 Creat Clearance w eGFR > 60 POC Glucometer 51 62 Random Glucose 123 H Calcium 8.2 L Phosphorus 3.9 Magnesium 2.0 06/16/18 10:58 Sodium Potassium Chloride Carbon Dioxide Anion Gap BUN Creatinine Creat Clearance w eGFR POC Glucometer 125 Random Glucose Calcium Phosphorus Magnesium ASSESSMENT AND PLAN: 83yo M with PMH systolic CHF, COPD not on home O2, WILLIS on cpap, CAD s/p stents , HTN, S/p PPM, BPH s/p TURP, afib on xarelto presented to the Er wtih progressively worsening SOB with cough and orthopnea and found to be in acute on chronic systolic CHF -Acute on chronic systolic/diastolic heart failure exacerbation -JENNYFER, likely from above, resolved -Hyperkalemia -CAD s/p PCI -Atrial fibrillation on xarelto -s/p PPM -CAD s/p PCI -HTN -IDDM -BPHs/p TURP Plan; Improved volume status, no longer oxygen needs. Change lasix to 40 mg daily with sodium/fluid restriction Hold aldactone on d/c, low k diet, outpatient cardiology follow up. MBS noted, no concerns. Losartan based on renal function/K levels. Continue coreg/ranexa/asa decreased levemir to 20 units, repaglinide on dc with blood glucose monitoring [id number] xarelto Dispo discussed with CM. Moore to [facility] today. plan discussed with patient in detail, all questions answered.
--- NOTE | 2018-06-16 14:12 | PN ---
Progress Note, Physician History of Present Illness: Dyspnea resolving with diuresis. - Current Medication List Current Medications: Active Medications Al Hydroxide/Mg Hydroxide (Mylanta Oral Suspension -) 30 ml PO Q6H PRN PRN Reason: DYSPEPSIA Last Admin: 06/11/18 11:13 Dose: 30 ml Atorvastatin Calcium (Lipitor -) 40 mg PO HS [facility] Last Admin: 06/15/18 21:35 Dose: 40 mg Benzocaine/Menthol (Cepacol Lozenge -) 2 each MM PRN PRN PRN Reason: SORE THROAT Last Admin: 06/15/18 09:46 Dose: 2 each Carvedilol (Coreg -) 6.25 mg PO BID@0800,2000 [facility] Last Admin: 06/16/18 08:57 Dose: 6.25 mg Doxazosin Mesylate (Cardura -) 8 mg PO HS [facility] Last Admin: 06/15/18 21:35 Dose: 8 mg Ferrous Sulfate (Feosol -) 325 mg PO DAILY [facility] Last Admin: 06/16/18 11:01 Dose: 325 mg Furosemide (Lasix Injection -) 40 mg IVPUSH BID@0600,1400 [facility] Last Admin: 06/16/18 06:10 Dose: 40 mg Insulin Aspart (Novolog Vial Sliding Scale -) 1 vial SQ [facility]; Protocol Last Admin: 06/16/18 11:02 Dose: Not Given Insulin Detemir (Levemir Vial) [address] [facility] Last Admin: 06/15/18 21:37 Dose: 22 units Losartan Potassium (Cozaar -) 50 mg PO DAILY [facility] Last Admin: 06/16/18 11:01 Dose: 50 mg Zbuep-1-Yyvx Ethyl Esters (Lovaza -) 1 gm PO DAILY [facility] Last Admin: 06/16/18 11:01 Dose: 1 gm Polyethylene Glycol (Miralax (For Bowel Prep) -) 17 gm PO BID [facility] Last Admin: 06/16/18 11:10 Dose: 17 gm Ranolazine (Ranexa -) 500 mg PO BID [facility] Last Admin: 06/16/18 11:00 Dose: 500 mg Rivaroxaban (Xarelto -) 20 mg PO DAILY@1800 [facility] Last Admin: 06/15/18 18:05 Dose: 20 mg Senna/Docusate Sodium (Pericolace -) 1 tablet PO BID [facility] Last Admin: 06/16/18 11:05 Dose: 1 tablet Silver Sulfadiazine (Silvadene -) 1 applic TP BID [facility] Last Admin: 06/15/18 22:04 Dose: Not Given - Objective Vital Signs: Vital Signs Temperature 98.2 F 06/16/18 09:00 Pulse Rate 59 L 06/16/18 12:08 Respiratory Rate 20 06/16/18 09:00 Blood Pressure 126/65 06/16/18 09:00 O2 Sat by Pulse Oximetry (%) 97 06/16/18 12:09 Constitutional: Yes: No Distress, Calm Neck: Yes: Supple Cardiovascular: Yes: Pulse Irregular, Murmur (2/6 SM) Respiratory: Yes: Regular, Diminished Gastrointestinal: Yes: Normal Bowel Sounds, Soft Edema: No Labs: CBC, BMP 06/15/18 06:40 06/16/18 10:50 INR, PTT INR 1.75 (0.83-1.09) H 06/09/18 18:15 Problem List - Problems (1) CHF exacerbation Code(s): I50.9 - HEART FAILURE, UNSPECIFIED Qualifiers: Heart failure type: combined systolic and diastolic Qualified Code(s): I50.43 - Acute on chronic combined systolic (congestive) and diastolic ( congestive) heart failure (2) History of percutaneous coronary intervention Code(s): Z98.890 - OTHER SPECIFIED POSTPROCEDURAL STATES (3) ASHD (arteriosclerotic heart disease) Code(s): I25.10 - ATHSCL HEART DISEASE OF [place] CORONARY ARTERY W/O ANG PCTRS (4) COPD (chronic obstructive pulmonary disease) Code(s): J44.9 - CHRONIC OBSTRUCTIVE PULMONARY DISEASE, UNSPECIFIED Qualifiers: COPD type: unspecified COPD Qualified Code(s): J44.9 - Chronic obstructive pulmonary disease, unspecified (5) IDDM (insulin dependent diabetes mellitus) Code(s): E11.9 - TYPE 2 DIABETES MELLITUS WITHOUT COMPLICATIONS; Z79.4 - INSTALLMENT ACCOUNT CHECKER (CURRENT) USE OF INSULIN (6) Sleep apnea Code(s): G47.30 - SLEEP APNEA, UNSPECIFIED Qualifiers: Sleep apnea type: unspecified type Qualified Code(s): G47.30 - Sleep apnea , unspecified Assessment/Plan 05/02/2018 Echocardiography revealed systolic LV dysfunction with LVEF 40-45%, moderate (mean gradient of 27.7 and peak gradient 46 mmHg, LYNETTE of 0.78 cm2), mild MR, mild to moderate TR 1. Acute on chronic LV failure class 2-3 NYHA classification LV failure referable to systolic/diastolic heart failure resolving 2. CAD, s/p PCI/stent, angina pectoris 3. Persistent AF [id number] score of 6 on anticoagulation with Xarelto 4. AV block s/p PPM 5. HTN 6. Hypercholesterolemia 7. DM 8. COPD 9. Acute on CKD, hyperkalemia 10. Anemia 11. BPH s/p TURP PLAN: 1. Agree with oral diuretics with monitor diuretic response, renal fxn and electrolytes 2. Continue Carvedilol 6.25 bid, Cozaar 50 qd, Lipitor 40 qhs, Cardura 8 qhs, Ranexa 500 bid, Lovaza, Xarelto 20 qPM 3. D/c planning to SNF
--- NOTE | 2018-06-16 15:02 | DS ---
Physical Exam: SUBJECTIVE: Patient seen and examined at bedside this morning. No acute events overnight. Patient is saturating well at rest without oxygen. OBJECTIVE: Vital Signs Period Temp Pulse Resp BP Sys/Kuo Pulse Ox Last 24 Hr 97.6 F-98.2 F 59-60 20-20 117-135/63-65 92-98 PHYSICAL EXAM GENERAL: Awake, alert, and fully oriented, in no acute distress. HEAD: Normal with no signs of trauma. EYES: PERRLA, EOMI, sclera anicteric, conjunctiva clear. No lid lag. EARS, NOSE, THROAT: Ears normal, nares patent, oropharynx clear without exudates. Moist mucous membranes. NECK: Normal range of motion, supple without lymphadenopathy, JVD, or masses. LUNGS: Clear to auscultation bilaterally HEART: Regular rate and rhythm, normal S1 and S2 without murmur, rub or gallop. ABDOMEN: Soft, nontender, mildly distended, normoactive bowel sounds, no guarding, no rebound, no masses. MUSCULOSKELETAL: Normal range of motion at all joints. No bony deformities or tenderness. No CVA tenderness. UPPER EXTREMITIES: 2+ pulses, warm, well-perfused. No cyanosis. No clubbing. No peripheral edema. LOWER EXTREMITIES: 2+ pulses, warm, well-perfused. No calf tenderness. +1 bilateral pitting edema. NEUROLOGICAL: Cranial nerves II-XII intact. Normal speech. Gait not observed. PSYCHIATRIC: Cooperative. Good eye contact. Appropriate mood and affect. SKIN: Warm, dry, normal turgor, no rashes or lesions noted, normal capillary refill. LABS Laboratory Results - last 24 hr 06/15/18 06/15/18 06/16/18 16:06 21:37 06:08 Sodium Potassium Chloride Carbon Dioxide Anion Gap BUN Creatinine Creat Clearance w eGFR POC Glucometer 230 194 50 Random Glucose Calcium Phosphorus Magnesium 06/16/18 06/16/18 06/16/18 07:26 07:57 10:50 Sodium 135 L Potassium 4.6 Chloride 99 Carbon Dioxide 30 Anion Gap 7 L BUN 43 H Creatinine 1.1 Creat Clearance w eGFR > 60 POC Glucometer 51 62 Random Glucose 123 H Calcium 8.2 L Phosphorus 3.9 Magnesium 2.0 06/16/18 10:58 Sodium Potassium Chloride Carbon Dioxide Anion Gap BUN Creatinine Creat Clearance w eGFR POC Glucometer 125 Random Glucose Calcium Phosphorus Magnesium Imaging Modified Barium swallow Normal swallowing study LUE duplex US There is no evidence of deep venous thrombosis in the left upper extremity including the jugular and subclavian vein. Chest xray Since the prior study of 04/29/18, again noted is the weak inspiration with some increased markings at the bases and abdominal distention below both hemidiaphragms. There is a double lead pacemaker and previous right shoulder surgery. There are degenerative spine and shoulder changes. HOSPITAL COURSE: Date of Admission:06/09/18 Date of Discharge: 06/16/18 Patient is an 83 year old male with past medical history of CHF, COPD, HTN, HLD , CAD (s/p stenting x7 and pacemaker), DM, chronic venous insufficiency, BPH, Skin cancer and anemia, presented with worsening shortness of breath, diffuse edema, productive cough and weight gain for a few weeks. Patient was treated for acute on chronic CHF exacerbation. He was treated with Lasix 60mg IV daily and Aldactone 25mg BID. Cardiology consulted. I&O and daily weights monitored. Patient was also reported to have coughed up on food. Speech and swallow evaluation done and modified barium swallow ordered was normal. Patient continued to improved throughout the rest of hospital stay. Patient was discharged to [facility] with instructions to increase Lasix to 40mg daily and hold Aldactone. Minutes to complete discharge: 35 Discharge Summary Reason For Visit: ACUTE KIDNEY INJURY,ACUTE ON CHRONIC C H F Current Active Problems JENNYFER (acute kidney injury) (Acute) CHF exacerbation (Acute) Cough (Acute) Diabetes mellitus (Acute) History of percutaneous coronary intervention (Acute) Condition: Improved - Instructions Diet, Activity, Other Instructions: You were seen because you were having shortness of breath and leg swelling. You were noted to have fluid overload because your heart was not pumping enough blood into your circulation. You were given water pills that would helped you excrete the fluid through the urine. Please note the following changes to your medications: 1. Increase Lasix to 40mg daily. 2. Decrease Levemir to 20 units at bedtime. 3. Do not take spironolactone till further advised by your air pollution specialist. Please continue your other home medications as prescribed. Restrict your fluid intake to 1.5L per day. Have a low potassium diet. Please note that your lasix will need to be titrated based on your weight, kidney function. Also, daily weights, notify your doctor if weight gain >3lbs in 2 days or any new concerns. Blood glucose checks before meals and at bedtime and sliding scale per facility protocol. Your insulin will need to be adjusted accordingly. Following blood work in 3 days BMP (Basic metabolic panel) Magnesium level Phosphorous level You will be discharged to [facility]. Follow-up with your primary care within 1 week. Follow-up with your air pollution specialist in 1 week. Call 911 or go to the ED if with any worsening fevers, chills, shortness of breath, chest pain or any new other concerns noted. Referrals: Debra Rangel MD [Primary Care Provider] - Disposition: [facility] - Home Medications Comprehensive Discharge Medication List: Ambulatory Orders Atorvastatin Ca [Lipitor] 40 mg PO HS #0 tablet 09/09/12 Docosahexanoic Acid/Epa [Fish Oil Softgel] 1 each PO DAILY #0 capsule 09/09/12 Polyethylene Glycol 3350 [Miralax 255 gm Btl -] 17 gm PO BID #0 btl 09/09/12 Sennosides/Docusate Sodium [Senna-Docusate Sodium Tab] 1 each PO BID #0 tablet 09/09/12 Insulin (Levemir) [Levemir Vial] 20 unit SQ ASDIR 04/29/18 Carvedilol [Coreg -] 6.25 mg PO BID #60 tablet 05/12/18 Doxazosin Mesylate [Cardura -] 8 mg PO HS #60 tablet 05/12/18 Ferrous Sulfate [Feosol] 325 mg PO DAILY ud 05/12/18 Losartan Potassium 50 mg PO DAILY #50 tablet 05/12/18 Rivaroxaban [Xarelto -] 20 mg PO DAILY@1800 #30 tablet 05/12/18 Silver Sulfadiazine 1% Top Cr [Silvadene -] 1 applic TP BID #1 jar 05/12/18 Mag Hydrox/Al Hydrox/Simeth [Mylanta Oral Suspension -] 30 ml PO Q6H PRN cup Furosemide [Lasix -] 40 mg PO DAILY tablet 06/16/18 Insulin Sliding Scale [Novolog Vial Sliding Scale -] 1 vial SQ ACHS units 06/16 This patient is new to me today: Yes Date on this admission: 06/16/18 Emergency Visit: Yes ED Registration Date: 06/09/18 Care time: The patient presented to the Emergency Department on the above date and was hospitalized for further evaluation of their emergent condition. Critical Care patient: No - Discharge Referral Referred to [facility] No
[2018-06-16 15:27] VITALS: BP 101/55; PULSE 60; TEMP 98.1
[2018-06-16] MEDS ORDERED: FUROSEMIDE 40 MG/4 ML INJECTABLE VIAL IVPUSH ONE (15:45)
[2018-06-16] MEDS: SILVER SULFADIAZINE 1% TOP CREAM 400 GM JAR TP SCH (16:07)
[2018-06-16] MEDS: RIVAROXABAN 20 MG TABLET PO SCH (17:16)
[2018-06-17] MEDS ORDERED: FUROSEMIDE 40 MG TABLET (FP) PO SCH (10:00)
== END 2018-06-16 18:41 | DRG 291 ==
LOC: JER 16:19 → JERBED 20:15 → J5S 06-10 00:28
PROVIDERS: ADMIT Internal Medicine; ATTEND Hospitalist
DX: I13.0 Hypertensive heart and chronic kidney disease with heart failure and stage 1 through stage 4 chronic kidney disease, or unspecified chronic kidney disease (principal); I50.23 Acute on chronic systolic (congestive) heart failure; N17.9 Acute kidney failure, unspecified; E87.1 Hypo-osmolality and hyponatremia; I48.1 Persistent atrial fibrillation; E11.9 Type 2 diabetes mellitus without complications; E78.5 Hyperlipidemia, unspecified; Z98.61 Coronary angioplasty status; N40.0 Benign prostatic hyperplasia without lower urinary tract symptoms; E87.70 Fluid overload, unspecified; I25.119 Atherosclerotic heart disease of native coronary artery with unspecified angina pectoris; J44.9 Chronic obstructive pulmonary disease, unspecified; N18.9 Chronic kidney disease, unspecified; E87.5 Hyperkalemia; Z95.0 Presence of cardiac pacemaker; R10.13 Epigastric pain
CPT/HCPCS: 36415; 71045-TC-FY; 74230-TC-FY; 80048; 80053; 81003; 82550; 82553; 82607; 82728; 82746; 82803; 82962; 83540; 83550; 83735; 83880; 84100; 84484; 85025; 85027; 85044; 85610; 87086; 90688; 92611-GN; 93005; 93010; 93971; 94660; 94761; 99282-25; G0008

== ENCOUNTER 2018-07-10 10:07 | Inpatient (IN) | payer OTHER, MEDICARE ==
--- NOTE | 2018-07-10 10:25 | PDOC ---
History of Present Illness - General Stated Complaint: R/O PNEUMONIA Time Seen by Provider: 07/10/18 10:20 History Source: Patient, [facility] Records Exam Limitations: Clinical Condition - History of Present Illness Initial Comments: Pt is a 83 yo M, with PMH of chronic b/l venous insufficiency, sys/diastolic CHF , COPD (no home O2), DM, HTN, CAD (stent x7, pacemaker), and skin cancer, who is presenting via EMS from [facility]. According to intermediate notes, pt was complaining of b/l LE pain. Pt states that there was "pain when they were applying the silver". Pt denies any fevers/chills, headache, chest pain, SOB, nausea/vomiting, abdominal pain, diarrhea/constipation, or leg swelling. He states he has regular soft BMs and regular urination with no pain. Pt was recently admitted in June for CHF/COPD exacerbation. Pt denies any cigarette, alcohol, or drug use. Pt denies any recent travel or sick contacts. 07/10/18 13:15 07/10/18 14:12 Past History - Travel Traveled outside of the country in the last 30 days: No Close contact w/someone who was outside of country & ill: No - Past Medical History Allergies/Adverse Reactions: Allergies Allergy/AdvReac Type Severity Reaction Status Date / Time No Known Drug Allergies Allergy Verified 07/10/18 10:53 Home Medications: Ambulatory Orders Albuterol 2.5/Ipratropium 0.5 [Duoneb -] 1 neb IH QID 07/10/18 Atorvastatin Ca [Lipitor] 40 mg PO HS 07/10/18 Carvedilol [Coreg -] 6.25 mg PO BID 07/10/18 Docusate Sodium [Colace] 200 mg PO HS 07/10/18 Doxazosin Mesylate [Cardura Xl] 8 mg PO HS 07/10/18 Ferrous Sulfate [Feosol] 325 mg PO DAILY 07/10/18 Furosemide [Lasix -] 40 mg PO DAILY 07/10/18 Insulin Aspart [Novolog] 100 unit SQ ACHS 07/10/18 Insulin Detemir [Levemir Flextouch] 10 unit SQ HS 07/10/18 Losartan Potassium [Cozaar -] 50 mg PO DAILY 07/10/18 Mag Hydrox/Al Hydrox/Simeth [Mylanta *Suspension*] 30 ml PO Q6H PRN 07/10/18 Polyethylene Glycol 3350 [Miralax (For Daily Use) -] 17 gm PO BID 07/10/18 Rivaroxaban [Xarelto -] 20 mg PO DAILY 07/10/18 clonazePAM [Klonopin -] 0.5 mg PO BID 07/10/18 Anemia: Yes Asthma: No Cancer: Yes (SKIN CANCER) Cardiac Disorders: Yes CVA: (? TIA) COPD: Yes (CPAP AT NIGHT) CHF: Yes Dementia: No Diabetes: Yes GI Disorders: Yes Disorders: Yes (URINARY RETENTION; BPH) HTN: Yes Hypercholesterolemia: Yes Liver Disease: No Psychiatric Problems: Yes (depressive) Seizures: No Thyroid Disease: No - Surgical History Abdominal Surgery: No Appendectomy: No Cardiac Surgery: Yes (7x stents, pacemaker) Cholecystectomy: No Lung Surgery: No Neurologic Surgery: No Orthopedic Surgery: Yes (Right knee sx) - Immunization History Td Vaccination: No TDAP Vaccination: No Immunization Up to Date: Yes - Suicide/Smoking/Psychosocial Hx Smoking Status: No Smoking History: Never smoked Years of Tobacco Use: 0 Have you smoked in the past 12 months: No Number of Cigarettes Smoked Daily: 0 Cigars Per Day: 0 Hx Alcohol Use: No Drug/Substance Use Hx: No Substance Use Type: None Hx Substance Use Treatment: No Review of Systems - Review of Systems Able to Perform ROS?: Yes (limited) Is the patient limited Faroese proficient: Yes Constitutional: Yes: Weight Stable. No: Fever, Loss of Appetite, Weakness HEENTM: No: Recent change in vision, Throat Pain Respiratory: No: Cough, Shortness of Breath Cardiac (ROS): Yes: Edema (b/l LE pitting edema per intermediate and chart review). No: Chest Pain ABD/GI: No: Constipated, Diarrhea, Nausea, Poor Appetite, Poor Fluid Intake, Vomiting : No: Dysuria, Incontinence, Pain, Urgency Musculoskeletal: Yes: See HPI (per intermediate, b/l LE pain and unsteady gait, pt denies). No: Joint Pain, Muscle Pain Neurological: Yes: Unsteady Gait (per intermediate records - b/l LE pain and poor gait). No: Seizure Psychiatric: No: Change in Appetite Endocrine: No: Increased Urine, Change in Weight Hematologic/Lymphatic: Yes: Anemia All Other Systems: Reviewed and Negative *Physical Exam - Physical Exam General Appearance: Yes: Nourished, Appropriately Dressed, Apparent Distress ( BP 90s/50s, Temp 88 on arrival (rectal), no complaints of pain. Pt altered and oriented only to self and time). No: Intoxicated HEENT: positive: EOMI, EVARISTO, Normal ENT Inspection, Normal Voice, Symmetrical, Pharynx Normal, Other (eyes have bulging appearance). negative: Scleral Icterus (R), Scleral Icterus (L), Pharyngeal Erythema, Tonsillar Exudate, Tonsillar Erythema, Rhinorrhea, Sinus Tenderness, Hearing Decreased Neck: positive: Trachea midline, Normal Thyroid, Supple. negative: Tender, Rigid, Lymphadenopathy (R), Lymphadenopathy (L), Rigidity Respiratory/Chest: positive: Lungs Clear, Rhonchi (coarse breath sounds b/l, no crackles or wheezing). negative: Chest Tender, Normal Breath Sounds, Respiratory Distress, Accessory Muscle Use, Crackles, Wheezing, Dullness (no focal dullness) Cardiovascular: positive: Regular Rhythm, Regular Rate, S1, S2, Edema (chronic pedal edema (venous insufficiency) and hyperkeratosis of legs), JVD (mild jvd). negative: Murmur Vascular Pulses: Carotid (R): 4+, Carotid (L): 4+ Gastrointestinal/Abdominal: positive: Normal Bowel Sounds, Flat, Soft. negative : Tender, Organomegaly, Pulsatile Mass, Distended, Guarding, Rebound Male Genitalia: positive: normal genitalia. negative: discharge Rectal Exam: positive: deferred Lymphatic: negative: Adenopathy, Tenderness Musculoskeletal: positive: Normal Inspection. negative: CVA Tenderness Extremity: positive: Normal Capillary Refill, Normal Range of Motion, Pelvis Stable, Pedal Edema (chronic pedal edema (venous insufficiency) and hyperkeratosis of legs). negative: Normal Inspection, Tender, Calf Tenderness Integumentary: positive: Dry, Warm, Erythema (glossy appearance of skin b/l LE with mild weeping. Multiple areas of scabbing and would healing b/l LE.), Other (small 1 cm sacral ulcer, stage 2). negative: Normal Color, Clammy, Diaphoresis , Rash, Ecchymosis Neurologic: positive: datastage developer II-XII NML intact, Alert, Normal Response, Motor Strength 5/5. negative: Fully Oriented (oriented to person and month), Normal Mood/Affect (responds to questions appropriately and then has abnormal conversations/tangential thoughts), EOM Palsy, Facial Droop, Sensory Deficit Heart Score/ECG Review - History History: Slightly suspicious - Electrocardiogram EKG: Non specific repolarization disturbance (widening of QRS - ventricularly paced rhythm (similar to prior)) - Age Age: >/= 65 - Risk Factors Risk Factors Heart Score: Yes Hx Hypertension, Yes Hx Diabetes Based on the list above the patient has:: 1-2 risk factors - Troponin Troponin: </= normal limit - Score Heart Score - Total: 4 ED Treatment Course - LABORATORY CBC & Chemistry Diagram: 07/10/18 11:00 07/10/18 11:00 Medical Decision Making - Medical Decision Making (entered later) Pt was seen at bedside, also will be seen by attending Dr. Hardin. Pt presenting via EMS from [facility] on [facility]. According to intermediate notes, pt was complaining of b/l LE pain. Pt states that there was "pain when they were applying the silver". Pt has PMH of chronic b/l venous insufficiency, sys/ diastolic CHF, COPD (no home O2), DM, HTN, CAD (stent x7, pacemaker), and skin cancer. Pt denies any fevers/chills, headache, chest pain, SOB, nausea/vomiting , abdominal pain, diarrhea/constipation, or leg swelling. He states he has regular soft BMs and regular urination with no pain. Pt was recently admitted in June for CHF/COPD exacerbation. Vitals showed rectal temp 88.5, BP 90s/50s. BG in 70s. He is alert and oriented to time and self, not oriented to place. PE showed erythema and weeping of b/l LE, pitting edema to mid baker. Pt has barrel chest appearance, with coarse lung sounds anterior and posterior b/l, no crackles or wheezes. No abdominal tenderness. No bed sores. Considering sepsis (UTI, pneumonia) vs stroke/bleed vs metabolic abnormalities vs thyroid (myxedema coma) Ordered work-up including septic work-up (CBC, coags, CMP, UA, urine culture, blood culture, lactic, Mg, Phos), head CT non-contrast, ECG, troponin, chest x- ray. Provided bharath gamaer for improvement of hypothermia and will provide IV NS boluses in 500 mL increments due to COPD/CHF. Will continue to reassess pt and monitor for symptomatic improvement. ECG showed ventricularly paced rhythm (unchanged from prior admission Jun 2018). CBC: WBC 12.3, anemia (w/n pt baseline) Pt vitals continue to be 90s/50s, will closely monitor and provide more fluid as needed. Rectal temp 88.2, will provide warmed fluids as well. Pt will be taken for head CT scan, currently completing LE b/l doppler. 07/10/18 11:41 INR 2.41 (therapeutic, pt on Xarelto). 07/10/18 11:48 [id number] RAD/CHEST X-RAY PORTABLE* AP portable chest: Coarse breath sounds. The prior study of 06/09/2018, again is a scoliosis with convexity to the right, weak inspiration, multi lead pacemaker, distended bowel in the upper abdomen, previous right shoulder surgery and there are increased left hemithorax markings compatible with some atelectasis and/or infiltrate. Follow-up recommended. 07/10/18 11:49 Pt receiving 2nd 500 mL NS bolus, pressures still 80s/50s, rectal temp 88.5. 07/10/18 12:[address] scan. CMP generally WNL, glucose 73 Troponin =.02 07/10/18 12:53 Will page admitting team (Reji ramos hospitalist functional manager). Will provide 1 g Vanc and 3.375 g zosyn for broad-spectrum coverage. 07/10/18 12:56 Hospitalist team will accept, awaiting call-back to give sign-out. Paging ICU for admission as well. 07/10/18 13:11 Spoke with hospitalist team, will accept. Admission order placed (Dr. Musa will be accepting physician). Pending ICU call-back. 07/10/18 13:16 ICU paged again for call-back and sign-out. Hospitalist team at bedside. Per hospitalist team, starting 100 mg IV hydrocortisone. 07/10/18 14:01 ICU team has been called 3x, with no response. Hospitalist team alerted. BP 80s/50s. Will give hydrocortisone and monitor BP, if no improvement may need to place central line. Rectal temp increased to 89.9. 07/10/18 14:38 ICU team contacted, will be down to see the pt as well. Dr. Thomas (ID) has also seen pt at bedside. Pending admission upstairs to ICU. 07/10/18 16:29 BP stable 89/58. Temperature improving (now 92). Pending transfer to ICU. 07/10/18 17:25 *DC/Admit/Observation/Transfer Diagnosis at time of Disposition: TSH elevation COPD (chronic obstructive pulmonary disease) Qualifiers: COPD type: unspecified COPD Qualified Code(s): J44.9 - Chronic obstructive pulmonary disease, unspecified CHF (congestive heart failure) Qualifiers: Heart failure type: combined systolic and diastolic Heart failure chronicity: chronic Qualified Code(s): I50.42 - Chronic combined systolic (congestive) and diastolic (congestive) heart failure Hypothyroid Qualifiers: Hypothyroidism type: unspecified Qualified Code(s): E03.9 - Hypothyroidism, unspecified Hypotension Qualifiers: Hypotension type: unspecified hypotension type Qualified Code(s): I95.9 - Hypotension, unspecified - Discharge Dispostion Condition at time of disposition: Critical Decision to Admit order: Yes - Referrals - Patient Instructions - Post Discharge Activity
[2018-07-10] MEDS ORDERED: ACETAMINOPHEN 1000 MG/100 ML VIAL (NON FORMULARY) IVPB ONE (10:46)
[2018-07-10] MEDS ORDERED: SODIUM CHLORIDE 500 ML IV STA ×2 (10:46→18:36)
--- NOTE | 2018-07-10 10:53 | PDOC ---
Attending Attestation - Resident Resident Name: Kim Manzanares - ED Attending Attestation I have performed the following: I have examined & evaluated the patient, The case was reviewed & discussed with the resident, I agree w/resident's findings & plan, Exceptions are as noted - HPI HPI: 07/10/18 10:55 83y M hx of CHF (on aldactone), COPD (not on home o2), HTN, CAD (stent x 7, sp PM), venous insufficiency, BPH sp TURP, CKD, DM, presents with complaint of leg pain per [facility] documentation. Pt is altered here - able to briefly respond to questions, but then becomes incoherent. Upon arrival, the patient was noted to be hypothermic to 88, blood pressure is borderline hypotensive. The patient denies any acute distress or discomfort however his history is likely unreliable. On exam GENERAL: The patient is confused, responds to questions HEAD: Normocephalic, atraumatic. EYES: extraocular movements intact, sclera anicteric, conjunctiva clear. ENT: Normal voice, dry mucous membranes. NECK: Normal range of motion, supple LUNGS: Breath sounds equal, clear to auscultation bilaterally. No wheezes, no rhonchi, no rales. HEART: Regular rate and rhythm, normal S1 and S2 without murmur, rub or gallop. ABDOMEN: Soft, nontender, No guarding, no rebound. EXTREMITIES: erythemadous LE (shins) with some skin avulsions, no active bleeding/discharge NEUROLOGICAL: No facial assymetry, Normal speech, moving all 4 ext spontaneously and symmetrically PSYCH: unalbe to assess SKIN: cold to touch, Dry, normal turgor, ddx - Sepsis, hypothyroid/mxydedema coma, sepsis ordersetobtained pt placed on heather tejada will obtain CT head - Physicial Exam PE: 07/10/18 13:03 see above - Critical Care Time Total Critical Care Time: 50 Critical Care Statement: The care of this patient involved high complexity decision making to prevent further life threatening deterioration of the patient 's condition and/or to evaluate & treat vital organ system(s) failure or risk of failure. - Medical Decision Making 07/10/18 13:03 pts labs reviewed noted for TSH 14 -->?myxedema coma? awaiting CT head but will admit for further management, and will consult endocrine anticipate starting levothyroxine and liothyronine, Hydrocortisone if hypotensive will admit to the ICU 07/10/18 16:[address] Musa suspects his primary source may be from cellultis requests holding off on levothyroxin requests continuing with hydrocortisone pts BP borderline - suspect due to vasodilation due to warming - will continue to hydrate the patient Heart Score/ECG Review - ECG Impressions Comment:: 07/10/18 11:28 Twelve-lead EKG was performed and reviewed by me. EKG performed: Paced ventricular rhythm Rate of 60 No signs of ischemia via Sgarbossa criteria No significant changes when compared with prior EKG in June 2018
[2018-07-10 11:29] LABS: BASO % 0.2 % (0-2.0); EOS % 3.4 % (0-4.5); HEMATOCRIT 23.7 % (35.4-49); HEMOGLOBIN 8.1 GM/dL (11.7-16.9); LYMPH % 2.2 % (8-40); MCH 35.2 pg (25.7-33.7); MCHC 34.2 g/dl (32.0-35.9); MEAN CELL VOLUME 103.1 fl (80-96); MEAN PLT VOLUME 8.9 fl (7.5-11.1); MONO % 5.9 % (3.8-10.2); NEUT % 88.3 % (42.8-82.8); PLATELET COUNT 251 K/MM3 (134-434); RBC 2.29 M/mm3 (4.00-5.60); RDW 18.4 % (11.9-15.9); WHITE BLOOD COUNT 12.3 K/mm3 (4.0-10.0)
[2018-07-10] MEDS ORDERED: ACETAMINOPHEN INJECTION 100 ML IVPB ONE (11:45)
[2018-07-10 11:46] LABS: INR 2.41 (0.83-1.09); PROTHROMBIN TIME (PATIENT) 28.7 SEC (9.7-13.0)
[2018-07-10 11:49] LABS: ACTIVATED PTT 44.4 SECONDS (25.2-36.5)
[2018-07-10] MEDS ORDERED: SODIUM CHLORIDE 1,000 ML IV STA (12:16)
[2018-07-10 12:21] LABS: ALBUMIN 2.7 g/dl (3.4-5.0); ALK PHOS 146 U/L (45-117); ANION GAP 6 MMOL/L (8-16); BILIRUBIN,TOTAL 0.5 mg/dL (0.2-1); BLOOD UREA NITROGEN 52 mg/dL (7-18); CALCIUM 8.4 mg/dL (8.5-10.1); CHLORIDE 110 mmol/L (98-107); CO2 25 mmol/L (21-32); CREATININE 0.8 mg/dL (0.55-1.3); GLUCOSE,RANDOM 73 mg/dL (74-106); N-TERMINAL BNP 1180.8 pg/ml (5-450); PHOSPHOROUS 4.6 mg/dL (2.5-4.9); POTASSIUM 4.9 mmol/L (3.5-5.1); SGOT/AST 77 U/L (15-37); SGPT/ALT 53 U/L (13-61); SODIUM 141 mmol/L (136-145); TOT PROT 5.8 g/dl (6.4-8.2)
[2018-07-10 12:30] LABS: URINE APPEARANCE CLEAR; URINE BILIRUBIN NEGATIVE (<2.0 mg/dL); URINE COLOR YELLOW; URINE GLUCOSE (UA) NEGATIVE (NEGATIVE); URINE KETONE NEGATIVE (NEGATIVE); URINE LEUK ESTERASE NEGATIVE (NEGATIVE); URINE NITRITE NEGATIVE (NEGATIVE); URINE PROTEIN NEGATIVE (NEGATIVE)
[2018-07-10] MEDS ORDERED: VANCOMYCIN 1,000 MG in DEXTROSE 5%-WATER - 250 ML IVPB ONE (13:31)
[2018-07-10] MEDS ORDERED: PIPERACILLIN/TAZOB 3.375 GM 3.375 GM in DEXTROSE 5%-WATER - 50 ML IVPB ONE (13:32)
[2018-07-10] MEDS ORDERED: HYDROCORTISONE SOD SUCCINATE 100 MG/2 ML VIAL IVPUSH ONE (13:58)
[2018-07-10] MEDS ORDERED: SODIUM CHLORIDE 250 ML IV STA (14:23)
[2018-07-10] MEDS ORDERED: PIPERACILLIN/TAZOB 4.5 GM 4.5 GM/100 ML BAG IVPB ONE (14:25)
[2018-07-10] MEDS ORDERED: VANCOMYCIN 1 GRAM (PRE-DOCKED) 1,000 MG/250 ML BAG IVPB ONE (14:26)
[2018-07-10] MEDS ORDERED: PIPERACILLIN/TAZOB 3.375 GM 3.375 GM/50 ML BAG IVPB ONE (14:28)
[2018-07-10] MEDS ORDERED: LEVOTHYROXINE NA 50 MCG TABLET (FP) PO ONE (14:32)
--- NOTE | 2018-07-10 14:36 | PN ---
Teaching Attending Note Name of Resident: Gwen Richardson ATTENDING PHYSICIAN STATEMENT I saw and evaluated the patient. I reviewed the resident's note and discussed the case with the resident. I agree with the resident's findings and plan as documented. SUBJECTIVE: sent form [place] due to pain in LE . HPI: pt is lethargic, and can't provide full history. Hx is taking form [facility] records and ER staff. was seen mentally normal yesterday. this am , he was found to have low BP, and sugar in 30s. and was found confused with worsening LE edema and erythema. ( much worse than appearance last week ) .NH reports an unwitnessed fall. patent himself denies any pain or SOB , or fever. upon presentation to ER , he was found to be hypotensive, hypothermic, and lehtargic/confused. he was given a liter of IVF. and blood cx was sent OBJECTIVE: NAD, lethargic but arousable, knows his location, and age,not able to answer any further orientation questions due to lethargy. HEENT: very dry MM, no facial droop, round equal pupils, reactive to light , EOMI, jVD CV: RRR, 2/6 SM at LLSB, JVD+. Lungs: CTAB Abd: soft, NT, ND , NL BS. Ext: legs with erythema, edema, increased warmth, and ulcers with yellowish discharge. DP 1+ b/l. Neuro exam, limited, EOMI, round equal pupils, reactive to light. no facial droop. moves all his extremities. unable to get knee jerk reflexes but biceps 2 + b/l with normal relaxation phase. sacral area could not be examined as pt could not turn ASSESSMENT AND PLAN: 83 y/o man with h/o CAD, s/p stents, permanent A fib, Systolic heart failure, HTN, HLP, DM , CKD , Anemia, COPD,recent admission for acute CHF exacerbation who was sent from [place] for LE pain and was found to have hypothermia and hypotension 1- Severe sepsis 2/2 b/l LE cellulites. hypotension , and hypothermia present. - blood cx sent . - give vanco and zosyn. no previous cx available to guid treatment - ID consult - SBP 79 , will give a bolus of IVF then maintenance. has JVD but lungs are clear and he has mod TR. not in acute heart failure at the moment. can give flulids - if resistant to IVF then can start pressors - give hydrocortisone 2- Elevated TSH, with NL TSH in Aug. likely due to euthyroid sick syndrome in setting of sepsis. pt is unlikely in myxedema coma as he is septic and sepsis is why he is hypothermic. NA is nL, no delayed relaxation faces. - check T3, T4 - NO need for IV synthroid. - Spoke to Dr. Duron who agreed withplan and recommended 50 of pO synthroid 3- H/o A fib: hold coreg due to hypotension . cont xarelto INR is elevated probably due to xarelto . 4- h/o HTN: hold ARB and BB 5- H/o CHF: although he has JVD, this could be due to his Mod TR. He does is not in acute CHF now, he is volume depleted - cont IVF - hold lasix. - if after fluid resuscitation he develops heart failure, then will diurese 6- Dispo: ICU placement have requested a central line from ER staff CCT 60 min Critical Care Total Critical Care Time (in minutes): 60 Critical Care Statement: The care of this patient involved high complexity decision making to prevent further life threatening deterioration of the patient 's condition and/or to evaluate & treat vital organ system(s) failure or risk of failure.
[2018-07-10] MEDS ORDERED: HYDROCORTISONE SOD SUCCINATE 2 ML ONE (15:36)
[2018-07-10] MEDS: SODIUM CHLORIDE 1,000 ML IV SCH (15:42)
--- NOTE | 2018-07-10 16:13 | HP ---
CHIEF COMPLAINT: AMS PCP: Dr. Rangel HISTORY OF PRESENT ILLNESS: 83 y/o M with PMHx of CHF, COPD, HTN, HLD, CAD (s/p stenting x7 and pacemaker), Atrial Fibrillation, DM, chronic venous insufficiency, BPH was BIBEMS from [facility] for AMS. During my interview, patient is lethargic and unable to provide HPI or ROS. I spoke with nursing staff at [facility] who report that the patient had an unwitnessed fall yesterday. When the patient was found, he told nursing staff that he was kneeling down in prayer. Later on during the day, he tolerated his diet and was at his baseline mental status. Earlier this AM, nursing staff found him to be altered from his baseline, unable to answer questions or speak in complete sentences. His blood sugar at this time was 31 and he was given 2 juices and glucagon. His blood glucose rick to 69 however EMS was called. His BP was 90s/50s and his HR was 90. land development project manager reports that since she saw him last tuesday, his lower extremity cellulitis has gotten worse, becoming more erythematous and warm. Additionally she mentions that the patient was diagnosed with Personality disorder this past Tuesday and Started on Klonopin. Patient at this time does deny fevers, chest pain, SOB, nausea or vomiting. ER course was notable for: (1) Bear hugger, 1.5L NS given (2) DUPLEX (3) TSH, Cortisol, Free T3/T4 Recent Travel: Denies PAST MEDICAL HISTORY: CHF COPD HTN HLD CAD (s/p stenting x7 and pacemaker) Atrial Fibrillation DM chronic venous insufficiency BPH Personality disorder PAST SURGICAL HISTORY: Social History: Smoking:Denies Alcohol: Socially Drugs: Denies Family History: Allergies No Known Drug Allergies Allergy (Verified 07/10/18 10:53) HOME MEDICATIONS: Home Medications Medication Instructions Recorded Acetaminophen [Tylenol] 1,000 mg PO Q6H PRN 07/10/18 Albuterol 2.5/Ipratropium 0.5 1 neb IH QID 07/10/18 [Duoneb -] Atorvastatin Ca [Lipitor] 40 mg PO HS 07/10/18 Docusate Sodium [Colace] 200 mg PO HS 07/10/18 Ferrous Sulfate [Feosol] 325 mg PO DAILY 07/10/18 Furosemide [Lasix -] 40 mg PO DAILY 07/10/18 Insulin Aspart [Novolog] 100 unit SQ ACHS 07/10/18 Insulin Detemir [Levemir Flextouch] 10 unit SQ HS 07/10/18 Losartan Potassium [Cozaar -] 50 mg PO DAILY 07/10/18 Mag Hydrox/Al Hydrox/Simeth 30 ml PO Q6H PRN 07/10/18 [Mylanta *Suspension*] Pantoprazole Sodium [Protonix -] 40 mg PO DAILY 07/10/18 Polyethylene Glycol 3350 [Miralax 17 gm PO BID 07/10/18 (For Daily Use) -] Sennosides [Senna] 2 tab PO HS 07/10/18 Silver Sulfadiazine 1% Top Cr 1 applic TP DAILY 07/10/18 [Silvadene -] clonazePAM [Klonopin -] 0.5 mg PO BID 07/10/18 REVIEW OF SYSTEMS As Per HPI PHYSICAL EXAMINATION Vital Signs - 24 hr 07/10/18 07/10/18 07/10/18 10:44 11:30 11:49 Temperature 88.6 F L 88.0 F L 88.4 F L Pulse Rate 63 Pulse Rate [ 65 60 Left Apical] Respiratory 16 16 16 Rate Blood Pressure 96/58 L Blood Pressure 88/57 L 96/52 L [Right Arm] O2 Sat by Pulse 100 98 98 Oximetry (%) 07/10/18 07/10/18 07/10/18 12:32 14:11 14:32 Temperature 88.4 F L 89.7 F L 89.8 F L Pulse Rate 60 Pulse Rate [ 60 64 66 Left Apical] Respiratory 16 16 16 Rate Blood Pressure 88/57 L Blood Pressure 88/57 L 79/55 L 79/55 L [Right Arm] O2 Sat by Pulse 98 98 97 Oximetry (%) 07/10/18 15:56 Temperature 98.9 F Pulse Rate Pulse Rate [ 62 Left Apical] Respiratory 16 Rate Blood Pressure Blood Pressure 89/55 L [Right Arm] O2 Sat by Pulse 97 Oximetry (%) GENERAL: A&Ox3 (to name, location, and time [says "Its around election time"]), NAD, Lethargic, Hairless throughout except for Eyebrows HEAD: NCAT EYES: PERRL, Does not follow commands but moves his eyes in all directions EARS, NOSE, THROAT:Oropharynx clear without exudates. Moist mucous membranes. Dry Lips. Right Tongue Hematoma NECK: B/L JVD LUNGS: Left basilar Crackles HEART: Regular rate and rhythm, normal S1 and S2, LLSB Murmur ABDOMEN: Soft, nontender, not distended, normoactive bowel sounds, no guarding : Arroyo catheter present draining clear yellow urine BACK:Stage 2 ulcer superior to the gluteal fold without active drainage or surrounding erythema MUSCULOSKELETAL: No CVA tenderness. EXTREMITIES: 2+ pulses, 2+ lower extremity pitting edema b/l up to superior calf. Multiple Lower extremity wounds, few are scabbed over and some have active yellow drainage, Warm, tender to palpation with streaking erythema to the superior thighs NEUROLOGICAL: Cranial nerves II-XII intact. Normal speech. 4/5 muscle strength to hand certified personal finance counselor, elbow flexion/extension, Hip flexion, dorsiflexion, plantarflexion. Gross sensation intact globally. Hyporeflexive throughout. Laboratory Results - last 24 hr 07/10/18 07/10/18 07/10/18 11:00 11:00 11:00 WBC 12.3 H RBC 2.29 L Hgb 8.1 L Hct 23.7 L MCV 103.1 H MCH 35.2 H MCHC 34.2 RDW 18.4 H Plt Count 251 D MPV 8.9 Absolute Neuts (auto) 10.8 H Neutrophils % 88.3 H D Lymphocytes % 2.2 L D Monocytes % 5.9 Eosinophils % 3.4 Basophils % 0.2 Nucleated RBC % 0 PT with INR 28.70 H INR 2.41 H PTT (Actin FS) 44.4 H Sodium 141 Potassium 4.9 Chloride 110 H Carbon Dioxide 25 Anion Gap 6 L BUN 52 H Creatinine 0.8 Creat Clearance w eGFR > 60 Random Glucose 73 L Lactic Acid Calcium 8.4 L Phosphorus 4.6 Magnesium 3.0 H Total Bilirubin 0.5 AST 77 H ALT 53 Alkaline Phosphatase 146 H Troponin I 0.02 B-Natriuretic Peptide 1180.8 H Total Protein 5.8 L Albumin 2.7 L TSH 14.80 H D Urine Color Urine Appearance Urine pH Ur Specific [place] Urine Protein Urine Glucose (UA) Urine Ketones Urine Blood Urine Nitrite Urine Bilirubin Urine Urobilinogen Ur Leukocyte Esterase 07/10/18 07/10/18 11:00 12:20 WBC RBC Hgb Hct MCV MCH MCHC RDW Plt Count MPV Absolute Neuts (auto) Neutrophils % Lymphocytes % Monocytes % Eosinophils % Basophils % Nucleated RBC % PT with INR INR PTT (Actin FS) Sodium Potassium Chloride Carbon Dioxide Anion Gap BUN Creatinine Creat Clearance w eGFR Random Glucose Lactic Acid 1.4 Calcium Phosphorus Magnesium Total Bilirubin AST ALT Alkaline Phosphatase Troponin I B-Natriuretic Peptide Total Protein Albumin TSH Urine Color Yellow Urine Appearance Clear Urine pH 5.0 Ur Specific [place] 1.017 Urine Protein Negative Urine Glucose (UA) Negative Urine Ketones Negative Urine Blood Negative Urine Nitrite Negative Urine Bilirubin Negative Urine Urobilinogen 2.0 Ur Leukocyte Esterase Negative Active Medications Al Hydroxide/Mg Hydroxide (Mylanta Oral Suspension -) 30 ml PO Q6H PRN PRN Reason: INDIGESTION Albuterol/Ipratropium (Duoneb -) amp NEB QID [facility] Atorvastatin Calcium (Lipitor -) 40 mg PO HS [facility] Chlorhexidine Gluconate (Hibiclens For Decolonization -) 1 applic TP HS [facility] Clonazepam (Klonopin -) 0.5 mg PO BID [facility] Docusate Sodium (Colace -) 200 mg PO HS [facility] Hydrocortisone Sodium Succinate (Solu-Cortef -) 100 mg IVPB Q8H-IV [facility] Last Admin: 07/10/18 17:29 Dose: Not Given Sodium Chloride (Normal Saline -) 1,000 mls @ 100 mls/hr IV ASDIR [facility] Last Admin: 07/10/18 15:42 Dose: 100 mls/hr Piperacillin Sod/Tazobactam (Sod 3.375 gm/ Dextrose) 50 mls @ 100 mls/hr IVPB Q8H-IV [facility]; Protocol Insulin Aspart (Novolog Vial Sliding Scale -) 1 vial SQ TIDAC [facility]; Protocol Last Admin: 07/10/18 18:18 Dose: Not Given Mupirocin (Bactroban Ointment (For Decolonization) -) 1 applic NS BID [facility] Stop: 07/15/18 21:59 Non-Formulary Medication (Ferrous Sulfate [Feosol]) 325 mg PO DAILY [facility] Polyethylene Glycol (Miralax (For Daily Use) -) 17 gm PO BID [facility] Rivaroxaban (Xarelto -) 20 mg PO DAILY [facility] Senna (Senna -) tab PO HS [facility] Silver Sulfadiazine (Silvadene -) 1 applic TP DAILY [facility] IMAGING: -CXR: The prior study of 06/09/2018, again is a scoliosis with convexity to the right, weak inspiration, multi lead pacemaker, distended bowel in the upper abdomen, previous right shoulder surgery and there are increased left hemithorax markings compatible with some atelectasis and/or infiltrate. Follow- up recommended. -DUPLEX US: No evidence of deep venous thrombosis. -CT Head without contrast: No evidence of acute intracranial pathology. ASSESSMENT/PLAN: 83 y/o M with PMHx of CHF, COPD, HTN, HLD, CAD (s/p stenting x7 and pacemaker), Atrial Fibrillation, DM, chronic venous insufficiency, BPH was BIBEMS from [facility] for AMS and was admitted to the ICU for severe sepsis due to Cellulitus. #Severe Sepsis -T 88.6 F, BP 88/57 -Likely due B/L lower extremity cellulitis -Duplex, CXR, Head CT noted above -Given 1.5L NS in ED -Continue Bear-Hugger -Continue NS @ 100 mls/hr -Continue Vanco, Zosyn (Started on 07/10) -ID (Dr. Thomas) consulted -Blood, urine, wound culture pending -Hold home Anti-HTN meds #Elevated TSH -Likely due to Severe Sepsis; Consider Euthyroid Sick Syndrome, Less likely Myxedema coma -Endocrinology (Dr. Duron) Consulted, Appreciate Rec's -T3, T4, Cortisol, ACTH pending #AFib -Continue home dose Xarelto -Home dose Beta humberto held in the setting of Hypotension #DM -ISS, BGMs ACTID -A1c pending in AM -Hold Oral hypoglycemics #FEN -IV NS @ 100 mls/hr -Lytes wnl -Sodium controlled diet #PPx -DVT: Xarelto Dispo: ICU placement Visit type - Emergency Visit Emergency Visit: Yes ED Registration Date: 07/10/18 Care time: The patient presented to the Emergency Department on the above date and was hospitalized for further evaluation of their emergent condition. - New Patient This patient is new to me today: Yes Date on this admission: 07/10/18 - Critical Care Critical Care patient: Yes Total Critical Care Time (in minutes): 60 Critical Care Statement: The care of this patient involved high complexity decision making to prevent further life threatening deterioration of the patient 's condition and/or to evaluate & treat vital organ system(s) failure or risk of failure.
[2018-07-10] MEDS ORDERED: INSULIN SLIDING SCALE (NOVOLOG) 1 VIAL SQ SCH (16:30)
[2018-07-10] MEDS ORDERED: LEVOTHYROXINE NA 25 MCG TABLET (FP) ONE (16:31)
--- NOTE | 2018-07-10 16:34 | CONSULT ---
Consultation: CONSULT REQUEST: We have been asked to medically evaluate this patient for ( Septic shock and possible Myxedema coma vs Euthyroid sick syndrome). HISTORY OF PRESENT ILLNESS: Patient unable to provide history hence obtained from the chart and ED physician. Patient is an 83 year old male was sent from [facility] for evaluation of B/L lower extremity pain. Couldn't obtain detailed history from the patient. He was admitted at [facility] 06/09/18-06-16-18 for CHF exacerbation. In the ED today, patient was found to be hypothermic (88.6 F), hypotensive to 88 /57 mmHg with normal pulse and saturation (100 % in RA). Warming blanket was placed. Was given total of 1.5 L of IV Normal saline with only slight improvement of blood pressure. On investigation, labs were significant for leukocytosis 12.3 with normal lactic acid and hypoglycemia 73 mg/dl. TSH was 14.1, T3/T4 pending. B/L LE duplex was done which was negative for DVT. Due to hypotension not improving with IV fluids, might need pressors and elevated TSH in the setting of sepsis could have Myxedema coma vs Euthyroid sick syndrome hence admitting in ICU for close monitoring. Patient seen and examined in the ED. Patient is hallucinating (is talking in the air). He is fully oriented to time, place and person but is incoherent. ROS is negative as per the patient. Recent Travel: No travel ALLERGIES : NKDA PAST MEDICAL HISTORY: sys/diastolic CHF; COPD; HTN; HLD; CAD (s/p stenting x7 and pacemaker); Atrial Fibrillation; DM; chronic venous insufficiency; BPH s/p TURP; CKD; anemia for B/L leg pain and abnormal gait. Couldn't obtain further history from the patient. PAST SURGICAL HISTORY: As mentioned above Social History: Smoking: Denies Alcohol: Social Drugs: Denies Family History: Non contributory REVIEW OF SYSTEMS: CONSTITUTIONAL: Absent: fever, chills, diaphoresis, generalized weakness, malaise, loss of appetite, weight change HEENT: Absent: rhinorrhea, nasal congestion, throat pain, throat swelling, difficulty swallowing, mouth swelling, ear pain, eye pain, visual changes CARDIOVASCULAR: Absent: chest pain, syncope, palpitations, irregular heart rate, lightheadedness , peripheral edema RESPIRATORY: Absent: cough, shortness of breath, dyspnea with exertion, orthopnea, wheezing, stridor, hemoptysis GASTROINTESTINAL: Absent: abdominal pain, abdominal distension, nausea, vomiting, diarrhea, constipation, melena, hematochezia GENITOURINARY: Absent: dysuria, frequency, urgency, hesitancy, hematuria, flank pain, genital pain MUSCULOSKELETAL: Absent: myalgia, arthralgia, joint swelling, back pain, neck pain SKIN: Absent: rash, itching, pallor HEMATOLOGIC/IMMUNOLOGIC: Absent: easy bleeding, easy bruising, lymphadenopathy, frequent infections ENDOCRINE: Absent: unexplained weight gain, unexplained weight loss, heat intolerance, cold intolerance NEUROLOGIC: Absent: headache, focal weakness or paresthesias, dizziness, unsteady gait, seizure, mental status changes, bladder or bowel incontinence PSYCHIATRIC: Absent: anxiety, depression, suicidal or homicidal ideation, hallucinations. PHYSICAL EXAMINATION Vital Signs - 24 hr 07/10/18 07/10/18 07/10/18 10:44 11:30 11:49 Temperature 88.6 F L 88.0 F L 88.4 F L Pulse Rate 63 Pulse Rate [ 65 60 Left Apical] Respiratory 16 16 16 Rate Blood Pressure 96/58 L Blood Pressure 88/57 L 96/52 L [Right Arm] O2 Sat by Pulse 100 98 98 Oximetry (%) 07/10/18 07/10/18 07/10/18 12:32 14:11 14:32 Temperature 88.4 F L 89.7 F L 89.8 F L Pulse Rate 60 Pulse Rate [ 60 64 66 Left Apical] Respiratory 16 16 16 Rate Blood Pressure 88/57 L Blood Pressure 88/57 L 79/55 L 79/55 L [Right Arm] O2 Sat by Pulse 98 98 97 Oximetry (%) 07/10/18 07/10/18 15:56 16:11 Temperature 98.9 F 91.6 F L Pulse Rate Pulse Rate [ 62 62 Left Apical] Respiratory 16 16 Rate Blood Pressure Blood Pressure 89/55 L 82/55 L [Right Arm] O2 Sat by Pulse 97 100 Oximetry (%) GENERAL: Elderly patient, lying in bed, Awake, alert, and fully oriented but is incoherent, in no acute distress. HEAD: Normal with no signs of trauma. EYES: Exophthalmus, EOM intact, no pallor or icterus. EARS, NOSE, THROAT: Ears normal. Dry mucous membranes. NECK: Supple, no JVD. LUNGS: Breath sounds equal, clear to auscultation bilaterally. No wheezes, and no crackles. No accessory muscle use. HEART: Tachycardic, Regular rate and rhythm, normal S1 and S2 with systolic murmur +. ABDOMEN: Soft, nontender, no organomegaly. MUSCULOSKELETAL: Normal range of motion at all joints. No bony deformities or tenderness. No CVA tenderness. UPPER EXTREMITIES: 2+ pulses, warm, well-perfused. No cyanosis. No clubbing. Cap refill <2 seconds. No peripheral edema. LOWER EXTREMITIES: B/L redness of the skin of lower extremities with serosanguinous fluids weeping +, raised temperature. NEUROLOGICAL: No facial droop. Not cooperative to do full neuro.Normal speech. Incoherent. Gait not observed. PSYCHIATRIC: Cooperative. Good eye contact. Appropriate mood and affect. SKIN: Warm, dry, normal turgor, no rashes or lesions noted. Laboratory Results - last 24 hr 07/10/18 07/10/18 07/10/18 11:00 11:00 11:00 WBC 12.3 H RBC 2.29 L Hgb 8.1 L Hct 23.7 L MCV 103.1 H MCH 35.2 H MCHC 34.2 RDW 18.4 H Plt Count 251 D MPV 8.9 Absolute Neuts (auto) 10.8 H Neutrophils % 88.3 H D Lymphocytes % 2.2 L D Monocytes % 5.9 Eosinophils % 3.4 Basophils % 0.2 Nucleated RBC % 0 PT with INR 28.70 H INR 2.41 H PTT (Actin FS) 44.4 H Sodium 141 Potassium 4.9 Chloride 110 H Carbon Dioxide 25 Anion Gap 6 L BUN 52 H Creatinine 0.8 Creat Clearance w eGFR > 60 Random Glucose 73 L Lactic Acid Calcium 8.4 L Phosphorus 4.6 Magnesium 3.0 H Total Bilirubin 0.5 AST 77 H ALT 53 Alkaline Phosphatase 146 H Troponin I 0.02 B-Natriuretic Peptide 1180.8 H Total Protein 5.8 L Albumin 2.7 L TSH 14.80 H D Urine Color Urine Appearance Urine pH Ur Specific [place] Urine Protein Urine Glucose (UA) Urine Ketones Urine Blood Urine Nitrite Urine Bilirubin Urine Urobilinogen Ur Leukocyte Esterase 07/10/18 07/10/18 11:00 12:20 WBC RBC Hgb Hct MCV MCH MCHC RDW Plt Count MPV Absolute Neuts (auto) Neutrophils % Lymphocytes % Monocytes % Eosinophils % Basophils % Nucleated RBC % PT with INR INR PTT (Actin FS) Sodium Potassium Chloride Carbon Dioxide Anion Gap BUN Creatinine Creat Clearance w eGFR Random Glucose Lactic Acid 1.4 Calcium Phosphorus Magnesium Total Bilirubin AST ALT Alkaline Phosphatase Troponin I B-Natriuretic Peptide Total Protein Albumin TSH Urine Color Yellow Urine Appearance Clear Urine pH 5.0 Ur Specific [place] 1.017 Urine Protein Negative Urine Glucose (UA) Negative Urine Ketones Negative Urine Blood Negative Urine Nitrite Negative Urine Bilirubin Negative Urine Urobilinogen 2.0 Ur Leukocyte Esterase Negative Active Medications Generic Name Dose Route Start Last Admin Trade Name Freq PRN Reason Stop Dose Admin Chlorhexidine Gluconate 1 applic 07/10/18 22:00 Hibiclens For Decolonization - TP HS [facility] Sodium Chloride 1,000 mls @ 100 mls/hr 07/10/18 14:30 07/10/18 15:42 Normal Saline - IV 100 mls/hr ASDIR [facility] Administration Insulin Aspart 0 vial 07/10/18 16:30 Novolog Vial Sliding Scale - SQ TIDAC [facility] Protocol Mupirocin 1 applic 07/10/18 22:00 Bactroban Ointment (For Decolonization) - NS 07/15/18 21:59 BID [facility] ASSESSMENT/PLAN: Patient is an 83 year old male with significant past medical history of sys/ diastolic CHF; COPD; HTN; HLD; CAD (s/p stenting x7 and pacemaker); Atrial Fibrillation; DM; chronic venous insufficiency; BPH s/p TURP; CKD; anemia for B/ L leg pain and abnormal gait was sent from [facility] for evaluation of B/L lower extremity pain. ID Septic shock likely secondary to cellulitis of B/L Lower extremity On arrival, BP: 88/75mmHg, Temp 88.6 with normal pulse and saturating 100 % in RA In the ED, has received 1.5 L of IV NS with only slight improvement of BP, now is getting IV nS @ 100mls.hr. If BP doesn't improve, will need a central line placement and will need pressors. Will admit in ICU IV Vanc and IV Zosyn, ID consult requested (Dr. Thomas) Continue IV NS @ 100 mls/hr Normal Lactic acid, DVT ruled out. Blood cultures/Urine cultures pending Endo Myxedema coma vs Euthyroid sick syndrome TSH 14.8 with hypotension, hypothermia, hypoglycemia. But it could be in the setting of sepsis. Primary team spoke with Dr. Duron and as per recommendation starting IV Hydrocortisone 100 mg Q8H and to start PO Levothyroxine 50 mcg Will repeat TSH, T3, T4 in Am. Cortisol PM pending Consider ultrasound of the neck Diabetes Mellitus A1c to be done in AM Insulin sliding scale, Finger stick glucose monitoring, watch for hypoglycemic symptoms Cardio Prolonged Qtc: 614 Avoid all Qtc prolonging agents. Repeat EKG in AM. Systolic/Diastolic CHF- not in exacerbation BNP: 1180. Last ECHO 05/02/2018: Mild Aortic regurg; EF40-50 %, Moderate , LV mild to mod decreased systolic function, Mild-mod TR. Hold Lasix, give IV fluids in the setting of sepsis Hypertension- now hypotensive not responding to IV fluids, might need pressors Hold antihypertensive meds Atrial fibrillation on Xarelto Continue xarelto 20mg PO Daily Heme Macrocytic anemia H/H 8.1/23.7 (at his baseline) FEN IV NS @ 100 mls.hr Electrolytes to be repeated in AM Sodium controlled diet Prophylaxis For DVT: Already on Xarelto For GI: Not indicated Code Status: Full Code Dispo: In ER, awaiting bed in ICU. We will continue to follow the patient. Thank you for this consultative opportunity. Visit type - Emergency Visit Emergency Visit: Yes ED Registration Date: 07/10/18 Care time: The patient presented to the Emergency Department on the above date and was hospitalized for further evaluation of their emergent condition. - New Patient This patient is new to me today: Yes Date on this admission: 07/10/18 - Critical Care Critical Care patient: Yes Total Critical Care Time (in minutes): 35 Critical Care Statement: The care of this patient involved high complexity decision making to prevent further life threatening deterioration of the patient 's condition and/or to evaluate & treat vital organ system(s) failure or risk of failure.
[2018-07-10 16:57] LABS: VENOUS PH 7.35 (7.32-7.42)
[2018-07-10 16:58] LABS: VENOUS PO2 96.7 mmHg (28-48)
[2018-07-10] MEDS: HYDROCORTISONE SOD SUCCINATE 100 MG/2 ML VIAL IVPB SCH (17:29)
--- NOTE | 2018-07-10 17:59 | CON.ID ---
Consult Consult Specialty:: infectious diseases Referred by:: dr moulton Reason for Consultation:: sepsis,hypothermia,cellulitis of the legs,weakness - History of Present Illness Chief Complaint: ams ,fall History of Present Illness: 83 y/o M with PMHx of CHF, COPD, HTN, HLD, CAD (s/p stenting x7 and pacemaker), Atrial Fibrillation, DM, chronic venous insufficiency, BPH was BIBEMS from [facility] for AMS. patient is lethargic hypothermic hypotensive and history obtained from charts and transfer records patient had an unwitnessed fall yesterday. When the patient was found, he told nursing staff that he was kneeling down in prayer. Later on during the day, he tolerated his diet and was at his baseline mental status. Earlier this AM, nursing staff found him to be altered from his baseline, unable to answer questions or speak in complete sentences. His blood sugar at this time was 31 and he was given 2 juices and glucagon. His blood glucose rick to 69 however EMS was called. His BP was 90s/50s and his HR was 90. - History Source History Provided By: Medical Record, Transfer Record Limitations to Obtaining History: Clinical Condition - Past Medical History Cardio/Vascular: Yes: AFIB, CAD, CHF, HTN, Hyperlipdemia Pulmonary: Yes: COPD, Sleep Apnea Renal/: Yes: BPH Endocrine: Yes: Diabetes Mellitus - Past Surgical History Past Surgical History: Yes: Permanent Pacemaker, TURP - Alcohol/Substance Use Hx Alcohol Use: No - Smoking History Smoking history: Never smoked Have you smoked in the past 12 months: No Aproximately how many cigarettes per day: 0 - Social History Usual Living Arrangement: Alone ADL: Support Services History of Recent Travel: No Home Medications - Allergies Allergies/Adverse Reactions: Allergies Allergy/AdvReac Type Severity Reaction Status Date / Time No Known Drug Allergies Allergy Verified 07/10/18 10:53 - Home Medications Home Medications: Ambulatory Orders RX: Albuterol 2.5/Ipratropium 0.5 [Duoneb -] 1 neb IH QID 07/10/18 RX: Atorvastatin Ca [Lipitor] 40 mg PO HS 07/10/18 RX: Ferrous Sulfate [Feosol] 325 mg PO DAILY 07/10/18 RX: Insulin Detemir [Levemir Flextouch] 10 unit SQ HS 07/10/18 RX: Losartan Potassium [Cozaar -] 50 mg PO DAILY 07/10/18 RX: Mag Hydrox/Al Hydrox/Simeth [Mylanta Oral Suspension -] 30 ml PO Q6H PRN 01/20 RX: Polyethylene Glycol 3350 [Miralax 119 gm Btl -] 17 gm PO BID 07/10/18 RX: Rivaroxaban [Xarelto -] 20 mg PO DAILY 07/10/18 RX: Sennosides [Senna] 17.2 mg PO HS 07/10/18 RX: Atorvastatin Ca [Lipitor] 10 mg PO HS tablet 07/28/18 RX: Carvedilol [Coreg -] 3.125 mg PO BID tablet 07/28/18 RX: Collagenase Clostridium Hist. [Santyl -] 1 applic TP DAILY tube 07/28/18 RX: Docusate Sodium [Colace -] 300 mg PO HS capsule 07/28/18 RX: Furosemide [Lasix -] 20 mg PO DAILY tablet 07/28/18 RX: Insulin (Levemir) [Levemir Vial] 10 units SQ AM units 07/28/18 RX: Levothyroxine [Synthroid -] 50 mcg PO DAILY@0700 tablet 07/28/18 RX: Lidocaine Patch Removal [Lidoderm Patch Removal] 1 each MC DAILY@2200 each 07/28/18 RX: Losartan Potassium [Cozaar -] 50 mg PO DAILY tablet 07/28/18 RX: Mineral Oil/Pet Hy-Phl [Aquaphor -] 1 applic TP DAILY jar 07/28/18 RX: Sennosides [Senna -] 1 tab PO HS tablet 07/28/18 Family Disease History - Family Disease History Family Disease History: Other: Father (Left when patient was young), Mother ( : 90: "old age") Review of Systems Unable to obtain ROS, reason: unable to obtain Physical Exam Vital Signs: Vital Signs Temperature 92.2 F L 07/10/18 17:22 Pulse Rate 61 07/10/18 17:22 Respiratory Rate 16 07/10/18 17:22 Blood Pressure 79/43 L 07/10/18 17:22 O2 Sat by Pulse Oximetry (%) 100 07/10/18 17:22 Constitutional: Yes: Other (lethargic) HENT: Yes: Atraumatic Neck: Yes: Supple, Trachea Midline Cardiovascular: Yes: Pulse Irregular, Murmur Respiratory: Yes: Regular, On Nasal O2, Poor Air Entry (at bases) Gastrointestinal: Yes: Normal Bowel Sounds, Soft Musculoskeletal: Yes: Other Extremities: Yes: Erythema (b/l lower ext), Other Wound/Incision: Yes: Open to air, Reddened Neurological: Yes: Confusion, Lethargy Psychiatric: Yes: Other Labs: CBC, BMP 07/10/18 11:00 07/10/18 11:00 Imaging - Results Chest X-ray: Report Reviewed, Image Reviewed Cat Scan: Report Reviewed, Image Reviewed Assessment/Plan septic shock Systolic / Diastolic CHF COPD HTN HLD CAD S/P PCI x 7 PPM Atrial Fibrillation DM Chronic venous insufficiency BPH s/p TURP CKD Anemia cellulitis of the legs 83 y/o man with h/o CAD, s/p stents, permanent A fib, Systolic heart failure, HTN, HLP, DM , CKD , Anemia, COPD,recent admission for acute CHF exacerbation who was [place] for [place] pain and was found to have hypothermia and hypotension Severe sepsis b/l LE cellulites. hypotension , hypothermia Elevated TSH, A fib HTN CHF plan await for all wound cx await for wound cx sepsis management patient icu hydration monitor bp broad spectrum abx patient critical prognosis guarded rest as per icu cc 50 min
[2018-07-10] MEDS: INSULIN SLIDING SCALE (NOVOLOG) 1 VIAL SQ SCH (18:18)
[2018-07-10] MEDS ORDERED: LORazepam 2 MG/ML SDV VIAL ONE ×2 (19:33→21:13)
[2018-07-10] MEDS ORDERED: MAG HYDROX/AL HYDROX/SIMETH 30 ML UNIT-DOSE CUP PO PRN (19:52)
[2018-07-10] MEDS ORDERED: ALBUTEROL SO4 2.5/IPRATROPIUM 0.5 INH SOL 3 ML VIAL.NEB. NEB ONE (21:05)
[2018-07-10] MEDS: ALBUTEROL SO4 2.5/IPRATROPIUM 0.5 INH SOL 3 ML VIAL.NEB. NEB SCH (21:15)
[2018-07-10] MEDS: DOCUSATE SODIUM 100 MG CAPSULE (FP) PO SCH (23:04)
[2018-07-10] MEDS: clonazePAM 0.5 MG TABLET PO SCH (23:04)
[2018-07-10] MEDS: CHLORHEXIDINE GLUCONATE 4% CLEANSER FOR DECOLONIZATION TP SCH (23:04)
[2018-07-10] MEDS: MUPIROCIN 2% TOPICAL OINTMENT FOR DECOLONIZATION NS SCH (23:04)
[2018-07-10] MEDS: ATORVASTATIN CA 40 MG TABLET (FP) PO SCH (23:05)
[2018-07-10] MEDS: SENNOSIDES 8.6MG TABLET (FP) PO SCH (23:05)
[2018-07-10] MEDS: POLYETHYLENE GLYCOL 3350 119 GM BTL PO SCH (23:05)
[2018-07-11] MEDS: SODIUM CHLORIDE 1,000 ML IV SCH ×2 (00:30→06:30)
[2018-07-11] MEDS ORDERED: PIPERACILLIN/TAZOBACTAM 3.375 GM VIAL IVPB ONE ×3 (01:26→17:07)
[2018-07-11] MEDS ORDERED: DEXTROSE 5%-WATER - 50 ML IVPB ONE ×3 (01:27→17:08)
[2018-07-11] MEDS: HYDROCORTISONE SOD SUCCINATE 100 MG/2 ML VIAL IVPB SCH ×4 (01:49→20:54)
[2018-07-11] MEDS: PIPERACILLIN/TAZOB 3.375 GM 3.375 GM in DEXTROSE 5%-WATER - 50 ML IVPB SCH ×3 (01:49→17:17)
[2018-07-11] MEDS ORDERED: SODIUM CHLORIDE 500 ML IV STA (01:51)
[2018-07-11] MEDS ORDERED: VASOPRESSIN 20 UNITS/ML VIAL IV ONE (03:02)
[2018-07-11] MEDS ORDERED: NOREPINEPHRINE BITARTRATE 4 MG/4 ML ML IV ONE ×4 (03:51→23:38)
--- NOTE | 2018-07-11 04:29 | PN ---
Progress Note (short form) - Note Progress Note: Received patient from ED. Patient continued to have hypotension with MAP in the 50's despite 3 liters of fluids. There was no central line placement. Called EM physician for Femoral line placement. Patient was given Vasopressin in the meantime Right femoral line placed by ED Resident, under supervision of ED attending Jena guo
[2018-07-11] MEDS: NOREPINEPHRINE BITARTRATE 8,000 MCG in DEXTROSE 5%-WATER - 492 ML IV SCH ×3 (04:45→17:10)
[2018-07-11 06:12] LABS: BASO % 0.1 % (0-2.0); EOS % 0.1 % (0-4.5); HEMATOCRIT 23.8 % (35.4-49); HEMOGLOBIN 7.9 GM/dL (11.7-16.9); LYMPH % 1.7 % (8-40); MCH 35.6 pg (25.7-33.7); MCHC 33.3 g/dl (32.0-35.9); MEAN CELL VOLUME 106.8 fl (80-96); MEAN PLT VOLUME 9.2 fl (7.5-11.1); MONO % 4.4 % (3.8-10.2); NEUT % 93.7 % (42.8-82.8); PLATELET COUNT 237 K/MM3 (134-434); RBC 2.23 M/mm3 (4.00-5.60); RDW 18.4 % (11.9-15.9); WHITE BLOOD COUNT 17.3 K/mm3 (4.0-10.0)
[2018-07-11] MEDS ORDERED: VASOPRESSIN 50 UNITS in SODIUM CHLORIDE 97.5 ML IVPB SCH (06:30)
--- NOTE | 2018-07-11 06:39 | ED.PROV ---
Physicial Exam - Vital Signs Last Vital Signs Temp Pulse Resp BP Pulse Ox 93 F L 60 16 88/60 L 99 07/11/18 06:00 07/11/18 06:00 07/11/18 06:00 07/11/18 06:00 07/11/18 00:30 - Physical Exam Reason for Response: 07/11/18 06:46 Central Line placement in ICU Procedures - Central Line Central Line Lumen: triple Central Line Position: femoral (R) Anesthesia: 1% Lidocaine Complications: none Post Central Line Insertion: sutured, good blood return
[2018-07-11 07:05] LABS: ARTERIAL BLD GAS O2 SATURATION 91.6 % (90-98.9); ARTERIAL BLOOD GAS PCO2 57.2 mmHg (35-45); ARTERIAL BLOOD GAS PO2 81.4 mmHg (68-100)
[2018-07-11 07:31] LABS: ALLENS TEST POSITIVE
[2018-07-11 07:37] LABS: ARTERIAL BLOOD GAS pH 7.15 (7.35-7.45)
[2018-07-11 07:53] LABS: ALBUMIN 2.5 g/dl (3.4-5.0); ALK PHOS 142 U/L (45-117); ANION GAP 6 MMOL/L (8-16); BILIRUBIN,TOTAL 0.4 mg/dL (0.2-1); BLOOD UREA NITROGEN 52 mg/dL (7-18); CALCIUM 7.7 mg/dL (8.5-10.1); CHLORIDE 111 mmol/L (98-107); CO2 23 mmol/L (21-32); GLUCOSE,RANDOM 114 mg/dL (74-106); MAGNESIUM 2.8 mg/dL (1.8-2.4); PHOSPHOROUS 6.8 mg/dL (2.5-4.9); POTASSIUM 5.7 mmol/L (3.5-5.1); SGOT/AST 212 U/L (15-37); SGPT/ALT 114 U/L (13-61); SODIUM 140 mmol/L (136-145); TOT PROT 5.8 g/dl (6.4-8.2)
[2018-07-11] MEDS: INSULIN SLIDING SCALE (NOVOLOG) 1 VIAL SQ SCH ×3 (07:59→16:03)
[2018-07-11] MEDS: ALBUTEROL SO4 2.5/IPRATROPIUM 0.5 INH SOL 3 ML VIAL.NEB. NEB SCH ×4 (08:20→20:30)
[2018-07-11] MEDS ORDERED: CALCIUM GLUCONATE 10% - 1,000 MG/10 ML VIAL IVPB ONE ×2 (08:44→20:11)
[2018-07-11] MEDS ORDERED: INSULIN REGULAR HUMAN 100 UNITS/ML *VIAL IVPUSH ONE ×2 (08:45→20:12)
[2018-07-11] MEDS ORDERED: DEXTROSE 50%-WATER - 25 GM/50 ML VIAL IVPUSH ONE ×2 (08:45→20:12)
[2018-07-11] MEDS ORDERED: DEXTROSE 50%-WATER 25 GM/50 ML DISP.SYRIN ONE ×2 (08:57→20:27)
[2018-07-11 09:41] LABS: ARTERIAL BLD GAS O2 SATURATION 98.6 % (90-98.9); ARTERIAL BLOOD GAS PCO2 40.1 mmHg (35-45); ARTERIAL BLOOD GAS pH 7.28 (7.35-7.45)
[2018-07-11 09:42] LABS: ALLENS TEST POSITIVE; ARTERIAL BLOOD GAS BASE EXCESS -7.2 meq/l (-2-2)
[2018-07-11] MEDS ORDERED: PT OWN MED DRAWER 7, Y5N ONE ×2 (09:51→11:18)
[2018-07-11] MEDS: MUPIROCIN 2% TOPICAL OINTMENT FOR DECOLONIZATION NS SCH ×2 (09:53→21:12)
[2018-07-11] MEDS ORDERED: LEVOTHYROXINE SODIUM 100 MCG VIAL IVPUSH SCH (10:00)
[2018-07-11] MEDS ORDERED: SILVER SULFADIAZINE 1% TOP CREAM 400 GM JAR TP SCH ×2 (10:00→16:40)
[2018-07-11 10:03] LABS: ACANTHOCYTES 2+; ANISOCYTOSIS 1+; MACROCYTOSIS 1+; PLATELET ESTIMATE NORMAL; TARGET CELLS 1+
[2018-07-11 10:18] LABS: HEMATOCRIT 23.2 % (35.4-49); HEMOGLOBIN 7.7 GM/dL (11.7-16.9); MCH 34.9 pg (25.7-33.7); MEAN CELL VOLUME 105.7 fl (80-96); MEAN PLT VOLUME 9.5 fl (7.5-11.1); PLATELET COUNT 251 K/MM3 (134-434); RDW 18.6 % (11.9-15.9); WHITE BLOOD COUNT 16.7 K/mm3 (4.0-10.0)
--- NOTE | 2018-07-11 11:11 | PN ---
Teaching Attending Note Name of Resident: Gwen Richardson ATTENDING PHYSICIAN STATEMENT I saw and evaluated the patient. I reviewed the resident's note and discussed the case with the resident. I agree with the resident's findings and plan as documented. SUBJECTIVE: unable to obtain hx. last night pressors were started. vaso off, still on levo. OBJECTIVE: Responsive only to painful stimuli and sternal rub. round equal pupils, but pinpoint CV: RRR, 2/6 SM RUSB and LUSB, JVD+. Lungs: CTAB, decreased at bases Abd: soft, NT, ND , NL BS. Ext: legs with erythema, edema, increased warmth, and ulcers with decreased erythema over thighs. ASSESSMENT AND PLAN: 83 y/o man with h/o CAD, s/p stents, permanent A fib, Systolic heart failure, HTN, HLP, DM , CKD , Anemia, COPD,recent admission for acute CHF exacerbation who was sent from [place] for LE pain and was found to have hypothermia and hypotension 1- Sepstic shock 2/2 b/l LE cellulites. - cont levophed. - cont IVF - follow cultures. - cont zosyn - cont stress dose hydrocortisone - 2- Acute hypoxic, hypercapnic resp failure. Cxray with new L sided changes, likely atelectasis with L hemidiaphragm elevation. ? mucus plug - Cont venti mask - ABG noted, metabolic and resp acidosis .will repeat later - chest PT . R sided positioning 3- Hyperkalemia: likely due to acidosis . not on any meds that increase K. - s/p treatment this am , repeat Noted , will follow closely 4-Abn TfTS, Elevated TSH , likely due to sick euthyroid syndrome - repeat TFTS after recovery at a steady state. - no specific treatment 5- H/o A fib: hold coreg due to hypotension . cont xarelto 6- H/o CHF: not in acute decompensated CHF now. - hold lasix. 7- ICU level of care. will try to reach family Critical Care Total Critical Care Time (in minutes): 40 Critical Care Statement: The care of this patient involved high complexity decision making to prevent further life threatening deterioration of the patient 's condition and/or to evaluate & treat vital organ system(s) failure or risk of failure.
[2018-07-11] MEDS ORDERED: MIDAZOLAM HCL 2 MG/2 ML SINGLE DOSE VIAL IVPUSH ONE ×2 (11:50→14:29)
--- NOTE | 2018-07-11 12:10 | EKG ---
Test Reason : Blood Pressure : / mmHG Vent. Rate : 060 BPM Atrial Rate : 059 BPM P-R Int : 000 ms QRS Dur : 168 ms QT Int : 614 ms P-R-T Axes : 000 -59 065 degrees QTc Int : 614 ms Ventricular-paced rhythm ABNORMAL ECG Confirmed by MD RICHAR, HALINA ([id number]) on 07/11/2018 12:09:39 PM Referred By: Confirmed By:HALINA MCQUEEN MD
--- NOTE | 2018-07-11 12:12 | PN ---
Teaching Attending Note Name of Resident: Capri Erickson ATTENDING PHYSICIAN STATEMENT I saw and evaluated the patient. I reviewed the resident's note and discussed the case with the resident. I agree with the resident's findings and plan as documented. SUBJECTIVE: Patient seen and examined in the ICU. Lethargic and intermittently moaning. 20 mcq NE for hemodynamic support. Wounds in LE appear much worse than baseline. Intake & Output 07/09/18 07/09/18 07/10/18 07/11/18 00:59 23:59 23:59 23:59 Intake Total 1850 2125 Output Total 1120 700 Balance 730 1425 Weight 205 lb 169 lb 4 oz Last Vital Signs Temp Pulse Resp BP Pulse Ox 97.5 F L 61 24 H 122/81 100 07/11/18 10:11 07/11/18 11:58 07/11/18 10:11 07/11/18 11:58 07/11/18 09:00 Active Medications Al Hydroxide/Mg Hydroxide (Mylanta Oral Suspension -) 30 ml PO Q6H PRN PRN Reason: INDIGESTION Albuterol/Ipratropium (Duoneb -) 1 amp NEB RQID [facility] Last Admin: 07/11/18 08:20 Dose: 1 amp Atorvastatin Calcium (Lipitor -) 40 mg PO [facility] Last Admin: 07/10/18 23:05 Dose: Not Given Chlorhexidine Gluconate (Hibiclens For Decolonization -) 1 applic TP [facility] Last Admin: 07/10/18 23:04 Dose: Not Given Clonazepam (Klonopin -) 0.5 mg PO BID [facility] Last Admin: 07/10/18 23:04 Dose: Not Given Docusate Sodium (Colace -) 200 mg PO HS [facility] Last Admin: 07/10/18 23:04 Dose: Not Given Ferrous Sulfate (Feosol -) 325 mg PO DAILY [facility] Fludrocortisone Acetate (Florinef -) 0.05 mg PO DAILY [facility] Hydrocortisone Sodium Succinate (Solu-Cortef -) 50 mg IVPB Q6H-IV [facility] Piperacillin Sod/Tazobactam (Sod 3.375 gm/ Dextrose) 50 mls @ 100 mls/hr IVPB Q8H-IV [facility]; Protocol Last Admin: 07/11/18 10:59 Dose: 100 mls/hr Norepinephrine Bitartrate 8, (000 mcg/ Dextrose) 500 mls @ 18.75 mls/hr IV TITR [facility]; Protocol Last Titration: 07/11/18 11:58 Dose: 22 mcg/min, 82.5 mls/hr Sodium Chloride (Normal Saline -) 1,000 mls @ 50 mls/hr IV ASDIR [facility] Last Admin: 07/11/18 06:30 Dose: 50 mls/hr Insulin Aspart (Novolog Vial Sliding Scale -) 1 vial SQ TIDAC [facility]; Protocol Last Admin: 07/11/18 11:47 Dose: Not Given Mupirocin (Bactroban Ointment (For Decolonization) -) 1 applic NS BID [facility] Stop: 07/15/18 21:59 Last Admin: 07/11/18 09:53 Dose: 1 applic Polyethylene Glycol (Miralax (For Daily Use) -) 17 gm PO BID [facility] Last Admin: 07/10/18 23:05 Dose: Not Given Rivaroxaban (Xarelto -) 20 mg PO DAILY [facility] Senna (Senna -) 2 tab PO HS [facility] Last Admin: 07/10/18 23:05 Dose: Not Given Silver Sulfadiazine (Silvadene -) 1 applic TP DAILY [facility] Last Admin: 07/11/18 11:40 Dose: 1 applic GENERAL: Lethargic and confused, intermittently moaning. HEAD: Normal with no signs of trauma. EYES: Exophthalmus, EOM intact, no pallor or icterus. EARS, NOSE, THROAT: Ears normal. Dry mucous membranes. NECK: Supple, no JVD. LUNGS: bibasilar rhonchi, no wheeze. No accessory muscle use. HEART: Tachycardic, Regular rate and rhythm, normal S1 and S2 with systolic murmur +. ABDOMEN: Soft, nontender, no organomegaly. MUSCULOSKELETAL: Normal range of motion at all joints. No bony deformities or tenderness. No CVA tenderness. UPPER EXTREMITIES: 2+ pulses, warm, well-perfused. No cyanosis. No clubbing. LOWER EXTREMITIES: B/L erythema of the skin of lower extremities with serosanguinous fluids weeping NEUROLOGICAL: Letgargic, confused, non-focal Laboratory Results - last 24 hr 07/10/18 07/10/18 07/10/18 10:58 11:00 11:00 WBC RBC Hgb Hct MCV MCH MCHC RDW Plt Count MPV Absolute Neuts (auto) Neutrophils % Neutrophils % (Manual) Band Neutrophils % Lymphocytes % Lymphocytes % (Manual) Monocytes % Monocytes % (Manual) Eosinophils % Eosinophils % (Manual) Basophils % Basophils % (Manual) Myelocytes % (Man) Promyelocytes % (Man) Blast Cells % (Manual) Nucleated RBC % Metamyelocytes Hypochromia Platelet Estimate Polychromasia Poikilocytosis Anisocytosis Microcytosis Macrocytosis Target Cells Acanthocytes (Spur) Schistocytes Anticoagulation Therapy Puncture Site Patient Temperature ABG pH ABG pCO2 at Pt Temp ABG pO2 at Pt Temp ABG HCO3 ABG O2 Sat (Measured) ABG O2 Content ABG Base Excess Jaret Test VBG pH 7.35 POC VBG pCO2 39.0 POC VBG pO2 96.7 H D Mixed VBG HCO3 21.2 O2 Delivery Device Oxygen Flow Rate Vent Mode Vent Rate Mechanical Rate PEEP Pressure Support Vent Sodium 141 Potassium 4.9 Chloride 110 H Carbon Dioxide 25 Anion Gap 6 L BUN 52 H Creatinine 0.8 Creat Clearance w eGFR > 60 POC Glucometer Random Glucose 73 L Hemoglobin A1c % Lactic Acid 1.4 Calcium 8.4 L Phosphorus 4.6 Magnesium 3.0 H Total Bilirubin 0.5 AST 77 H ALT 53 Alkaline Phosphatase 146 H Creatine Kinase Creatine Kinase Index CK-MB (CK-2) Troponin I 0.02 B-Natriuretic Peptide 1180.8 H Total Protein 5.8 L Albumin 2.7 L TSH 14.80 H D Free T4 Urine Color Urine Appearance Urine pH Ur Specific [place] Urine Protein Urine Glucose (UA) Urine Ketones Urine Blood Urine Nitrite Urine Bilirubin Urine Urobilinogen Ur Leukocyte Esterase 07/10/18 07/10/18 07/10/18 12:20 16:00 16:39 WBC RBC Hgb Hct MCV MCH MCHC RDW Plt Count MPV Absolute Neuts (auto) Neutrophils % Neutrophils % (Manual) Band Neutrophils % Lymphocytes % Lymphocytes % (Manual) Monocytes % Monocytes % (Manual) Eosinophils % Eosinophils % (Manual) Basophils % Basophils % (Manual) Myelocytes % (Man) Promyelocytes % (Man) Blast Cells % (Manual) Nucleated RBC % Metamyelocytes Hypochromia Platelet Estimate Polychromasia Poikilocytosis Anisocytosis Microcytosis Macrocytosis Target Cells Acanthocytes (Spur) Schistocytes Anticoagulation Therapy Puncture Site Patient Temperature ABG pH ABG pCO2 at Pt Temp ABG pO2 at Pt Temp ABG HCO3 ABG O2 Sat (Measured) ABG O2 Content ABG Base Excess Jaret Test VBG pH POC VBG pCO2 POC VBG pO2 Mixed VBG HCO3 O2 Delivery Device Oxygen Flow Rate Vent Mode Vent Rate Mechanical Rate PEEP Pressure Support Vent Sodium Potassium Chloride Carbon Dioxide Anion Gap BUN Creatinine Creat Clearance w eGFR POC Glucometer 159.34116 Random Glucose Hemoglobin A1c % Lactic Acid Calcium Phosphorus Magnesium Total Bilirubin AST ALT Alkaline Phosphatase Creatine Kinase 179 Creatine Kinase Index 9.3 H* CK-MB (CK-2) 16.8 H Troponin I < 0.02 B-Natriuretic Peptide Total Protein Albumin TSH Free T4 0.87 Urine Color Yellow Urine Appearance Clear Urine pH 5.0 Ur Specific [place] 1.017 Urine Protein Negative Urine Glucose (UA) Negative Urine Ketones Negative Urine Blood Negative Urine Nitrite Negative Urine Bilirubin Negative Urine Urobilinogen 2.0 Ur Leukocyte Esterase Negative 07/11/18 07/11/18 07/11/18 05:30 05:30 05:30 WBC 17.3 H RBC 2.23 L Hgb 7.9 L Hct 23.8 L MCV 106.8 H MCH 35.6 H MCHC 33.3 RDW 18.4 H Plt Count 237 MPV 9.2 Absolute Neuts (auto) 16.2 H Neutrophils % 93.7 H Neutrophils % (Manual) 63.0 Band Neutrophils % 26.0 Lymphocytes % 1.7 L D Lymphocytes % (Manual) 4.0 L Monocytes % 4.4 Monocytes % (Manual) 7 Eosinophils % 0.1 D Eosinophils % (Manual) 0.0 Basophils % 0.1 Basophils % (Manual) 0.0 Myelocytes % (Man) 0 Promyelocytes % (Man) 0 Blast Cells % (Manual) 0 Nucleated RBC % 0 Metamyelocytes 0 Hypochromia 0 Platelet Estimate Normal Polychromasia 0 Poikilocytosis 3+ Anisocytosis 1+ Microcytosis 1+ Macrocytosis 1+ Target Cells 1+ Acanthocytes (Spur) 2+ Schistocytes 1+ Anticoagulation Therapy Puncture Site Patient Temperature ABG pH ABG pCO2 at Pt Temp ABG pO2 at Pt Temp ABG HCO3 ABG O2 Sat (Measured) ABG O2 Content ABG Base Excess Jaret Test VBG pH POC VBG pCO2 POC VBG pO2 Mixed VBG HCO3 O2 Delivery Device Oxygen Flow Rate Vent Mode Vent Rate Mechanical Rate PEEP Pressure Support Vent Sodium 140 Potassium 5.7 H Chloride 111 H Carbon Dioxide 23 Anion Gap 6 L BUN 52 H Creatinine 1.0 Creat Clearance w eGFR > 60 POC Glucometer Random Glucose 114 H Hemoglobin A1c % Lactic Acid Calcium 7.7 L Phosphorus 6.8 H Magnesium 2.8 H Total Bilirubin 0.4 AST 212 H ALT 114 H Alkaline Phosphatase 142 H Creatine Kinase Creatine Kinase Index CK-MB (CK-2) Troponin I B-Natriuretic Peptide Total Protein 5.8 L Albumin 2.5 L TSH 13.20 H D Free T4 0.88 Urine Color Urine Appearance Urine pH Ur Specific [place] Urine Protein Urine Glucose (UA) Urine Ketones Urine Blood Urine Nitrite Urine Bilirubin Urine Urobilinogen Ur Leukocyte Esterase 07/11/18 07/11/18 07/11/18 05:30 06:00 06:47 WBC RBC Hgb Hct MCV MCH MCHC RDW Plt Count MPV Absolute Neuts (auto) Neutrophils % Neutrophils % (Manual) Band Neutrophils % Lymphocytes % Lymphocytes % (Manual) Monocytes % Monocytes % (Manual) Eosinophils % Eosinophils % (Manual) Basophils % Basophils % (Manual) Myelocytes % (Man) Promyelocytes % (Man) Blast Cells % (Manual) Nucleated RBC % Metamyelocytes Hypochromia Platelet Estimate Polychromasia Poikilocytosis Anisocytosis Microcytosis Macrocytosis Target Cells Acanthocytes (Spur) Schistocytes Anticoagulation Therapy No Result Required. Puncture Site Left brachial Patient Temperature 93 ABG pH 7.15 L* ABG pCO2 at Pt Temp 57.2 H ABG pO2 at Pt Temp 81.4 ABG HCO3 19.2 L ABG O2 Sat (Measured) 91.6 ABG O2 Content 11.0 L ABG Base Excess -9.0 L Jaret Test Positive VBG pH POC VBG pCO2 POC VBG pO2 Mixed VBG HCO3 O2 Delivery Device Venti mask Oxygen Flow Rate 50% Vent Mode No Result Required. Vent Rate No Result Required. Mechanical Rate No Result Required. PEEP Pressure Support Vent No Result Required. Sodium Potassium Chloride Carbon Dioxide Anion Gap BUN Creatinine Creat Clearance w eGFR POC Glucometer [id number] Random Glucose Hemoglobin A1c % 6.8 H Lactic Acid Calcium Phosphorus Magnesium Total Bilirubin AST ALT Alkaline Phosphatase Creatine Kinase Creatine Kinase Index CK-MB (CK-2) Troponin I B-Natriuretic Peptide Total Protein Albumin TSH Free T4 Urine Color Urine Appearance Urine pH Ur Specific [place] Urine Protein Urine Glucose (UA) Urine Ketones Urine Blood Urine Nitrite Urine Bilirubin Urine Urobilinogen Ur Leukocyte Esterase 07/11/18 07/11/18 07/11/18 09:26 09:45 09:45 WBC RBC Hgb Hct MCV MCH MCHC RDW Plt Count MPV Absolute Neuts (auto) Neutrophils % Neutrophils % (Manual) Band Neutrophils % Lymphocytes % Lymphocytes % (Manual) Monocytes % Monocytes % (Manual) Eosinophils % Eosinophils % (Manual) Basophils % Basophils % (Manual) Myelocytes % (Man) Promyelocytes % (Man) Blast Cells % (Manual) Nucleated RBC % Metamyelocytes Hypochromia Platelet Estimate Polychromasia Poikilocytosis Anisocytosis Microcytosis Macrocytosis Target Cells Acanthocytes (Spur) Schistocytes Anticoagulation Therapy No Result Required. Puncture Site Right brachial Patient Temperature ABG pH 7.28 L ABG pCO2 at Pt Temp 40.1 D ABG pO2 at Pt Temp 128.0 H D ABG HCO3 18.4 L ABG O2 Sat (Measured) 98.6 ABG O2 Content 10.4 L ABG Base Excess -7.2 L Jaret Test Positive VBG pH POC VBG pCO2 POC VBG pO2 Mixed VBG HCO3 O2 Delivery Device Nrm Oxygen Flow Rate 100% Vent Mode No Result Required. Vent Rate No Result Required. Mechanical Rate No Result Required. PEEP 0.0 Pressure Support Vent No Result Required. Sodium Potassium 5.6 H Chloride Carbon Dioxide Anion Gap BUN Creatinine Creat Clearance w eGFR POC Glucometer Random Glucose Hemoglobin A1c % Lactic Acid 1.4 Calcium Phosphorus Magnesium Total Bilirubin AST ALT Alkaline Phosphatase Creatine Kinase Creatine Kinase Index CK-MB (CK-2) Troponin I B-Natriuretic Peptide Total Protein Albumin TSH Free T4 Urine Color Urine Appearance Urine pH Ur Specific [place] Urine Protein Urine Glucose (UA) Urine Ketones Urine Blood Urine Nitrite Urine Bilirubin Urine Urobilinogen Ur Leukocyte Esterase 07/11/18 09:45 WBC 16.7 H RBC 2.20 L Hgb 7.7 L Hct 23.2 L MCV 105.7 H MCH 34.9 H MCHC 33.0 RDW 18.6 H Plt Count 251 MPV 9.5 Absolute Neuts (auto) Neutrophils % Neutrophils % (Manual) Band Neutrophils % Lymphocytes % Lymphocytes % (Manual) Monocytes % Monocytes % (Manual) Eosinophils % Eosinophils % (Manual) Basophils % Basophils % (Manual) Myelocytes % (Man) Promyelocytes % (Man) Blast Cells % (Manual) Nucleated RBC % Metamyelocytes Hypochromia Platelet Estimate Polychromasia Poikilocytosis Anisocytosis Microcytosis Macrocytosis Target Cells Acanthocytes (Spur) Schistocytes Anticoagulation Therapy Puncture Site Patient Temperature ABG pH ABG pCO2 at Pt Temp ABG pO2 at Pt Temp ABG HCO3 ABG O2 Sat (Measured) ABG O2 Content ABG Base Excess Jaret Test VBG pH POC VBG pCO2 POC VBG pO2 Mixed VBG HCO3 O2 Delivery Device Oxygen Flow Rate Vent Mode Vent Rate Mechanical Rate PEEP Pressure Support Vent Sodium Potassium Chloride Carbon Dioxide Anion Gap BUN Creatinine Creat Clearance w eGFR POC Glucometer Random Glucose Hemoglobin A1c % Lactic Acid Calcium Phosphorus Magnesium Total Bilirubin AST ALT Alkaline Phosphatase Creatine Kinase Creatine Kinase Index CK-MB (CK-2) Troponin I B-Natriuretic Peptide Total Protein Albumin TSH Free T4 Urine Color Urine Appearance Urine pH Ur Specific [place] Urine Protein Urine Glucose (UA) Urine Ketones Urine Blood Urine Nitrite Urine Bilirubin Urine Urobilinogen Ur Leukocyte Esterase ASSESSMENT/PLAN: Septoc Shock due to tract infection versus Skin pathogens due to LE wounds Systolic / Diastolic CHF COPD HTN HLD CAD S/P PCI x 7 PPM Atrial Fibrillation DM Chronic venous insufficiency BPH s/p TURP CKD Anemia Severe OSAS (RDI 108 per hour / desaturation to 72%) (?) Myxedema versus Euthyroid Sick Syndrome Broad ABX coverage O2 as needed NIPPV (16/10 QHS and PRN) Aspiration precautions Follow cultures Strict I & O Change TLC position Noted Endocrine consult was called Aspiration precautions Can add Vasopressin Hydrocortisone / Fludrocortisone for Shock Glycemic control Hold Meg Claudio Critical care time spent in reviewing chart, evaluating patient and formulating plan - 36 minutes.
--- NOTE | 2018-07-11 12:32 | CONSULT ---
Consult Consult Specialty:: endocrine Referred by:: saige magallon md Reason for Consultation:: hypothyroidism - History of Present Illness Chief Complaint: weakness lethargic History of Present Illness: 83y M hx of dm,type 2,CHF, COPD (not on home o2), HTN, CAD (stent x 7, sp PM), venous insufficiency, BPH sp TURP, CKD, , presents with complaint of leg pain per senior care documentation. Pt is altered here - able to briefly respond to questions, but then becomes incoherent. since arrival, the patient was noted to be hypothermic to 88, blood pressure is borderline hypotensive.hypothyroidism new onset unable to respond to questions. - Past Medical History Cardio/Vascular: Yes: AFIB, CAD, CHF, HTN, Hyperlipdemia Pulmonary: Yes: COPD, Sleep Apnea Renal/: Yes: BPH Endocrine: Yes: Diabetes Mellitus - Past Surgical History Past Surgical History: Yes: Permanent Pacemaker, TURP - Alcohol/Substance Use Hx Alcohol Use: No - Smoking History Smoking history: Never smoked Have you smoked in the past 12 months: No Aproximately how many cigarettes per day: 0 - Social History Usual Living Arrangement: Alone ADL: Support Services History of Recent Travel: No Home Medications - Allergies Allergies/Adverse Reactions: Allergies Allergy/AdvReac Type Severity Reaction Status Date / Time No Known Drug Allergies Allergy Verified 07/10/18 10:53 - Home Medications Home Medications: Ambulatory Orders Albuterol 2.5/Ipratropium 0.5 [Duoneb -] 1 neb IH QID 07/10/18 Atorvastatin Ca [Lipitor] 40 mg PO HS 07/10/18 Carvedilol [Coreg -] 6.25 mg PO BID 07/10/18 Docusate Sodium [Colace] 200 mg PO HS 07/10/18 Doxazosin Mesylate [Cardura Xl] 8 mg PO HS 07/10/18 Ferrous Sulfate [Feosol] 325 mg PO DAILY 07/10/18 Furosemide [Lasix -] 40 mg PO DAILY 07/10/18 Insulin Aspart [Novolog] 100 unit SQ ACHS 07/10/18 Insulin Detemir [Levemir Flextouch] 10 unit SQ HS 07/10/18 Losartan Potassium [Cozaar -] 50 mg PO DAILY 07/10/18 Mag Hydrox/Al Hydrox/Simeth [Mylanta *Suspension*] 30 ml PO Q6H PRN 07/10/18 Polyethylene Glycol 3350 [Miralax (For Daily Use) -] 17 gm PO BID 07/10/18 Rivaroxaban [Xarelto -] 20 mg PO DAILY 07/10/18 Sennosides [Senna] 17.2 mg PO HS 07/10/18 Silver Sulfadiazine 1% Top Cr [Silvadene -] 1 applic TP DAILY 07/10/18 clonazePAM [Klonopin -] 0.5 mg PO BID 07/10/18 Family Disease History - Family Disease History Family Disease History: Other: Father (Left when patient was young), Mother ( : 90: "old age") Review of Systems - Review of Systems Constitutional: reports: Weakness Physical Exam Vital Signs: Vital Signs Temperature 97.5 F L 07/11/18 10:11 Pulse Rate 67 07/11/18 12:20 Respiratory Rate 24 H 07/11/18 10:11 Blood Pressure 104/48 L 07/11/18 12:20 O2 Sat by Pulse Oximetry (%) 100 07/11/18 09:00 Constitutional: Yes: Anxious Eyes: Yes: EOM Intact HENT: Yes: Normocephalic Neck: Yes: Trachea Midline, Thyromegaly Cardiovascular: Yes: Tachycardia, Murmur, S2 Respiratory: Yes: On Venti-Mask, SOB Gastrointestinal: Yes: Normal Bowel Sounds Renal/: Yes: WNL Musculoskeletal: Yes: Muscle Weakness Extremities: Yes: Cool, Erythema Edema: No Integumentary: Yes: Pressure Ulcer, Rash, Skin Tear, Venous Stasis Changes Wound/Incision: Yes: Draining Neurological: Yes: Alert, Oriented Labs: CBC, BMP 07/11/18 09:45 07/11/18 09:45 Problem List - Problems (1) CHF (congestive heart failure) Code(s): I50.9 - HEART FAILURE, UNSPECIFIED Qualifiers: Heart failure type: combined systolic and diastolic Heart failure chronicity: chronic Qualified Code(s): I50.42 - Chronic combined systolic ( congestive) and diastolic (congestive) heart failure (2) Hypotension Code(s): I95.9 - HYPOTENSION, UNSPECIFIED Qualifiers: Hypotension type: unspecified hypotension type Qualified Code(s): I95.9 - Hypotension, unspecified (3) Hypothyroid Code(s): E03.9 - HYPOTHYROIDISM, UNSPECIFIED Qualifiers: Hypothyroidism type: unspecified Qualified Code(s): E03.9 - Hypothyroidism , unspecified (4) TSH elevation Code(s): R79.89 - OTHER SPECIFIED ABNORMAL FINDINGS OF BLOOD CHEMISTRY (5) ASHD (arteriosclerotic heart disease) Code(s): I25.10 - ATHSCL HEART DISEASE OF [place] CORONARY ARTERY W/O ANG PCTRS Assessment/Plan Current Active Problems CHF (congestive heart failure) (Acute) COPD (chronic obstructive pulmonary disease) (Acute) Hypotension (Acute) Hypothyroid (Acute) TSH elevation (Acute) Laboratory Results - last 24 hr 07/10/18 07/10/18 07/10/18 10:58 16:00 16:39 WBC RBC Hgb Hct MCV MCH MCHC RDW Plt Count MPV Absolute Neuts (auto) Neutrophils % Neutrophils % (Manual) Band Neutrophils % Lymphocytes % Lymphocytes % (Manual) Monocytes % Monocytes % (Manual) Eosinophils % Eosinophils % (Manual) Basophils % Basophils % (Manual) Myelocytes % (Man) Promyelocytes % (Man) Blast Cells % (Manual) Nucleated RBC % Metamyelocytes Hypochromia Platelet Estimate Polychromasia Poikilocytosis Anisocytosis Microcytosis Macrocytosis Target Cells Acanthocytes (Spur) Schistocytes Anticoagulation Therapy Puncture Site Patient Temperature ABG pH ABG pCO2 at Pt Temp ABG pO2 at Pt Temp ABG HCO3 ABG O2 Sat (Measured) ABG O2 Content ABG Base Excess Jaret Test VBG pH 7.35 POC VBG pCO2 39.0 POC VBG pO2 96.7 H D Mixed VBG HCO3 21.2 O2 Delivery Device Oxygen Flow Rate Vent Mode Vent Rate Mechanical Rate PEEP Pressure Support Vent Sodium Potassium Chloride Carbon Dioxide Anion Gap BUN Creatinine Creat Clearance w eGFR POC Glucometer 159.77536 Random Glucose Hemoglobin A1c % Lactic Acid Calcium Phosphorus Magnesium Total Bilirubin AST ALT Alkaline Phosphatase Creatine Kinase 179 Creatine Kinase Index 9.3 H* CK-MB (CK-2) 16.8 H Troponin I < 0.02 Total Protein Albumin TSH Free T4 0.87 07/11/18 07/11/18 07/11/18 05:30 05:30 05:30 WBC 17.3 H RBC 2.23 L Hgb 7.9 L Hct 23.8 L MCV 106.8 H MCH 35.6 H MCHC 33.3 RDW 18.4 H Plt Count 237 MPV 9.2 Absolute Neuts (auto) 16.2 H Neutrophils % 93.7 H Neutrophils % (Manual) 63.0 Band Neutrophils % 26.0 Lymphocytes % 1.7 L D Lymphocytes % (Manual) 4.0 L Monocytes % 4.4 Monocytes % (Manual) 7 Eosinophils % 0.1 D Eosinophils % (Manual) 0.0 Basophils % 0.1 Basophils % (Manual) 0.0 Myelocytes % (Man) 0 Promyelocytes % (Man) 0 Blast Cells % (Manual) 0 Nucleated RBC % 0 Metamyelocytes 0 Hypochromia 0 Platelet Estimate Normal Polychromasia 0 Poikilocytosis 3+ Anisocytosis 1+ Microcytosis 1+ Macrocytosis 1+ Target Cells 1+ Acanthocytes (Spur) 2+ Schistocytes 1+ Anticoagulation Therapy Puncture Site Patient Temperature ABG pH ABG pCO2 at Pt Temp ABG pO2 at Pt Temp ABG HCO3 ABG O2 Sat (Measured) ABG O2 Content ABG Base Excess Jaret Test VBG pH POC VBG pCO2 POC VBG pO2 Mixed VBG HCO3 O2 Delivery Device Oxygen Flow Rate Vent Mode Vent Rate Mechanical Rate PEEP Pressure Support Vent Sodium 140 Potassium 5.7 H Chloride 111 H Carbon Dioxide 23 Anion Gap 6 L BUN 52 H Creatinine 1.0 Creat Clearance w eGFR > 60 POC Glucometer Random Glucose 114 H Hemoglobin A1c % Lactic Acid Calcium 7.7 L Phosphorus 6.8 H Magnesium 2.8 H Total Bilirubin 0.4 AST 212 H ALT 114 H Alkaline Phosphatase 142 H Creatine Kinase Creatine Kinase Index CK-MB (CK-2) Troponin I Total Protein 5.8 L Albumin 2.5 L TSH 13.20 H D Free T4 0.88 07/11/18 07/11/18 07/11/18 05:30 06:00 06:47 WBC RBC Hgb Hct MCV MCH MCHC RDW Plt Count MPV Absolute Neuts (auto) Neutrophils % Neutrophils % (Manual) Band Neutrophils % Lymphocytes % Lymphocytes % (Manual) Monocytes % Monocytes % (Manual) Eosinophils % Eosinophils % (Manual) Basophils % Basophils % (Manual) Myelocytes % (Man) Promyelocytes % (Man) Blast Cells % (Manual) Nucleated RBC % Metamyelocytes Hypochromia Platelet Estimate Polychromasia Poikilocytosis Anisocytosis Microcytosis Macrocytosis Target Cells Acanthocytes (Spur) Schistocytes Anticoagulation Therapy No Result Required. Puncture Site Left brachial Patient Temperature 93 ABG pH 7.15 L* ABG pCO2 at Pt Temp 57.2 H ABG pO2 at Pt Temp 81.4 ABG HCO3 19.2 L ABG O2 Sat (Measured) 91.6 ABG O2 Content 11.0 L ABG Base Excess -9.0 L Jaret Test Positive VBG pH POC VBG pCO2 POC VBG pO2 Mixed VBG HCO3 O2 Delivery Device Venti mask Oxygen Flow Rate 50% Vent Mode No Result Required. Vent Rate No Result Required. Mechanical Rate No Result Required. PEEP Pressure Support Vent No Result Required. Sodium Potassium Chloride Carbon Dioxide Anion Gap BUN Creatinine Creat Clearance w eGFR POC Glucometer [phone] Random Glucose Hemoglobin A1c % 6.8 H Lactic Acid Calcium Phosphorus Magnesium Total Bilirubin AST ALT Alkaline Phosphatase Creatine Kinase Creatine Kinase Index CK-MB (CK-2) Troponin I Total Protein Albumin TSH Free T4 07/11/18 07/11/18 07/11/18 09:26 09:45 09:45 WBC RBC Hgb Hct MCV MCH MCHC RDW Plt Count MPV Absolute Neuts (auto) Neutrophils % Neutrophils % (Manual) Band Neutrophils % Lymphocytes % Lymphocytes % (Manual) Monocytes % Monocytes % (Manual) Eosinophils % Eosinophils % (Manual) Basophils % Basophils % (Manual) Myelocytes % (Man) Promyelocytes % (Man) Blast Cells % (Manual) Nucleated RBC % Metamyelocytes Hypochromia Platelet Estimate Polychromasia Poikilocytosis Anisocytosis Microcytosis Macrocytosis Target Cells Acanthocytes (Spur) Schistocytes Anticoagulation Therapy No Result Required. Puncture Site Right brachial Patient Temperature ABG pH 7.28 L ABG pCO2 at Pt Temp 40.1 D ABG pO2 at Pt Temp 128.0 H D ABG HCO3 18.4 L ABG O2 Sat (Measured) 98.6 ABG O2 Content 10.4 L ABG Base Excess -7.2 L Jaret Test Positive VBG pH POC VBG pCO2 POC VBG pO2 Mixed VBG HCO3 O2 Delivery Device Nrm Oxygen Flow Rate 100% Vent Mode No Result Required. Vent Rate No Result Required. Mechanical Rate No Result Required. PEEP 0.0 Pressure Support Vent No Result Required. Sodium Potassium 5.6 H Chloride Carbon Dioxide Anion Gap BUN Creatinine Creat Clearance w eGFR POC Glucometer Random Glucose Hemoglobin A1c % Lactic Acid 1.4 Calcium Phosphorus Magnesium Total Bilirubin AST ALT Alkaline Phosphatase Creatine Kinase Creatine Kinase Index CK-MB (CK-2) Troponin I Total Protein Albumin TSH Free T4 07/11/18 07/11/18 09:45 11:45 WBC 16.7 H RBC 2.20 L Hgb 7.7 L Hct 23.2 L MCV 105.7 H MCH 34.9 H MCHC 33.0 RDW 18.6 H Plt Count 251 MPV 9.5 Absolute Neuts (auto) Neutrophils % Neutrophils % (Manual) Band Neutrophils % Lymphocytes % Lymphocytes % (Manual) Monocytes % Monocytes % (Manual) Eosinophils % Eosinophils % (Manual) Basophils % Basophils % (Manual) Myelocytes % (Man) Promyelocytes % (Man) Blast Cells % (Manual) Nucleated RBC % Metamyelocytes Hypochromia Platelet Estimate Polychromasia Poikilocytosis Anisocytosis Microcytosis Macrocytosis Target Cells Acanthocytes (Spur) Schistocytes Anticoagulation Therapy Puncture Site Patient Temperature ABG pH ABG pCO2 at Pt Temp ABG pO2 at Pt Temp ABG HCO3 ABG O2 Sat (Measured) ABG O2 Content ABG Base Excess Jaret Test VBG pH POC VBG pCO2 POC VBG pO2 Mixed VBG HCO3 O2 Delivery Device Oxygen Flow Rate Vent Mode Vent Rate Mechanical Rate PEEP Pressure Support Vent Sodium Potassium Chloride Carbon Dioxide Anion Gap BUN Creatinine Creat Clearance w eGFR POC Glucometer 142.94205 Random Glucose Hemoglobin A1c % Lactic Acid Calcium Phosphorus Magnesium Total Bilirubin AST ALT Alkaline Phosphatase Creatine Kinase Creatine Kinase Index CK-MB (CK-2) Troponin I Total Protein Albumin TSH Free T4 Laboratory Tests 07/10/18 07/10/18 07/11/18 11:00 16:00 05:30 Hemoglobin A1c % 6.8 H TSH 14.80 H D Free T4 0.87 plan: iv synthroid 25mcg daily till taking po iv fluid for rehydration iv antibiotic iv steroid adrenal support
--- NOTE | 2018-07-11 13:18 | PN ---
Progress Note, Physician History of Present Illness: patient still continues to be lethargic mentally confused temp has normalized still moaning on ventimask - Current Medication List Current Medications: Active Medications Al Hydroxide/Mg Hydroxide (Mylanta Oral Suspension -) 30 ml PO Q6H PRN PRN Reason: INDIGESTION Albuterol/Ipratropium (Duoneb -) 1 amp NEB RQID [facility] Last Admin: 07/11/18 11:40 Dose: 1 amp Atorvastatin Calcium (Lipitor -) 40 mg PO HS [facility] Last Admin: 07/10/18 23:05 Dose: Not Given Chlorhexidine Gluconate (Hibiclens For Decolonization -) 1 applic TP HS [facility] Last Admin: 07/10/18 23:04 Dose: Not Given Clonazepam (Klonopin -) 0.5 mg PO BID [facility] Last Admin: 07/10/18 23:04 Dose: Not Given Docusate Sodium (Colace -) 200 mg PO [facility] Last Admin: 07/10/18 23:04 Dose: Not Given Ferrous Sulfate (Feosol -) 325 mg PO DAILY [facility] Fludrocortisone Acetate (Florinef -) 0.05 mg PO DAILY [facility] Hydrocortisone Sodium Succinate (Solu-Cortef -) 50 mg IVPB Q6H-IV [facility] Piperacillin Sod/Tazobactam (Sod 3.375 gm/ Dextrose) 50 mls @ 100 mls/hr IVPB Q8H-IV [facility]; Protocol Last Admin: 07/11/18 10:59 Dose: 100 mls/hr Norepinephrine Bitartrate 8, (000 mcg/ Dextrose) 500 mls @ 18.75 mls/hr IV TITR [facility]; Protocol Last Admin: 07/11/18 12:20 Dose: 25 mcg/min, 93.75 mls/hr Sodium Chloride (Normal Saline -) 1,000 mls @ 50 mls/hr IV ASDIR [facility] Last Admin: 07/11/18 06:30 Dose: 50 mls/hr Insulin Aspart (Novolog Vial Sliding Scale -) 1 vial SQ TIDAC [facility]; Protocol Last Admin: 07/11/18 11:47 Dose: Not Given Levothyroxine Sodium (Synthroid Injection -) 25 mcg IVPUSH DAILY [facility] Mupirocin (Bactroban Ointment (For Decolonization) -) 1 applic NS BID [facility] Stop: 07/15/18 21:59 Last Admin: 07/11/18 09:53 Dose: 1 applic Polyethylene Glycol (Miralax (For Daily Use) -) 17 gm PO BID [facility] Last Admin: 07/10/18 23:05 Dose: Not Given Rivaroxaban (Xarelto -) 20 mg PO DAILY [facility] Senna (Senna -) 2 tab PO HS [facility] Last Admin: 07/10/18 23:05 Dose: Not Given Silver Sulfadiazine (Silvadene -) 1 applic TP DAILY [facility] Last Admin: 07/11/18 11:40 Dose: 1 applic - Objective Vital Signs: Vital Signs Temperature 97.5 F L 07/11/18 12:00 Pulse Rate 67 07/11/18 12:20 Respiratory Rate 22 H 07/11/18 12:00 Blood Pressure 104/48 L 07/11/18 12:20 O2 Sat by Pulse Oximetry (%) 100 07/11/18 12:38 Constitutional: Yes: Other Eyes: Yes: Conjunctiva Clear Cardiovascular: Yes: Other (paced rythm) Respiratory: Yes: Poor Air Entry, Other Gastrointestinal: Yes: Normal Bowel Sounds, Soft Musculoskeletal: Yes: WNL Extremities: Yes: Other (b/l venous changes) Integumentary: Yes: Venous Stasis Changes, Other Wound/Incision: Yes: Other Neurological: Yes: Alert, Other (confused) Psychiatric: Yes: Other Labs: CBC, BMP 07/11/18 09:45 07/11/18 09:45 INR, PTT INR 2.41 (0.83-1.09) H 07/10/18 11:00 Assessment/Plan septic shock Systolic / Diastolic CHF COPD HTN HLD CAD S/P PCI x 7 PPM Atrial Fibrillation DM Chronic venous insufficiency BPH s/p TURP CKD Anemia plan continue abx iv fluids close watch as per icu monitor neuro status await for all test rest as per icu\ cc 40 min
[2018-07-11] MEDS ORDERED: MIDAZOLAM HCL 2 MG/2 ML SINGLE DOSE VIAL ONE (13:31)
--- NOTE | 2018-07-11 14:00 | PN ---
Physical Exam: SUBJECTIVE: Patient seen and examined this morning in the ICU. Patient was extremely lethargic, thus ROS and Hx not obtained. NE 20 mcg started overnight via R Femoral line. OBJECTIVE: Vital Signs Period Temp Pulse Resp BP Sys/Kuo Pulse Ox Last 24 Hr 89.7 F-98.9 F 60-67 15-24 66-122/40-81 97-100 GENERAL: Lethargic and only responsive to painful stimuli, Hairless throughout except for Eyebrows HEAD: NCAT EYES: Pinpoint pupils NECK: B/L JVD LUNGS: Bibasilar Rhonchi, on 50% Ventimask HEART: Regular rate and rhythm, normal S1 and S2, LLSB Murmur ABDOMEN: Soft, nontender, not distended, normoactive bowel sounds, no guarding : Arroyo catheter present draining clear yellow urine BACK: Stage 2 ulcer superior to the gluteal fold without active drainage or surrounding erythema EXTREMITIES: 2+ pulses, Femoral line placed on Right side. 1+ L>R lower extremity pitting edema. Multiple, Warm Lower extremity wounds with streaking erythema; Erythema is however improved over the superior thighs Laboratory Last Values WBC 16.7 K/mm3 (4.0-10.0) H 07/11/18 09:45 RBC 2.20 M/mm3 (4.00-5.60) L 07/11/18 09:45 Hgb 7.7 GM/dL (11.7-16.9) L 07/11/18 09:45 Hct 23.2 % (35.4-49) L 07/11/18 09:45 MCV 105.7 fl (80-96) H 07/11/18 09:45 MCH 34.9 pg (25.7-33.7) H 07/11/18 09:45 MCHC 33.0 g/dl (32.0-35.9) 07/11/18 09:45 RDW 18.6 % (11.9-15.9) H 07/11/18 09:45 Plt Count 251 K/MM3 (134-434) 07/11/18 09:45 MPV 9.5 fl (7.5-11.1) 07/11/18 09:45 Absolute Neuts (auto) 16.2 K/mm3 (1.5-8.0) H 07/11/18 05:30 Neutrophils % 93.7 % (42.8-82.8) H 07/11/18 05:30 Neutrophils % (Manual) 63.0 % (42.8-82.8) 07/11/18 05:30 Band Neutrophils % 26.0 % 07/11/18 05:30 Lymphocytes % 1.7 % (8-40) L D 07/11/18 05:30 Lymphocytes % (Manual) 4.0 % (8-40) L 07/11/18 05:30 Monocytes % 4.4 % (3.8-10.2) 07/11/18 05:30 Monocytes % (Manual) 7 % (3.8-10.2) 07/11/18 05:30 Eosinophils % 0.1 % (0-4.5) D 07/11/18 05:30 Eosinophils % (Manual) 0.0 % (0-4.5) 07/11/18 05:30 Basophils % 0.1 % (0-2.0) 07/11/18 05:30 Basophils % (Manual) 0.0 % (0-2.0) 07/11/18 05:30 Myelocytes % (Man) 0 % (0-2) 07/11/18 05:30 Promyelocytes % (Man) 0 % (0-2) 07/11/18 05:30 Blast Cells % (Manual) 0 % (0-0) 07/11/18 05:30 Nucleated RBC % 0 % (0-0) 07/11/18 05:30 Metamyelocytes 0 % (0-2) 07/11/18 05:30 Hypochromia 0 07/11/18 05:30 Platelet Estimate Normal 07/11/18 05:30 Polychromasia 0 07/11/18 05:30 Poikilocytosis 3+ 07/11/18 05:30 Anisocytosis 1+ 07/11/18 05:30 Microcytosis 1+ 07/11/18 05:30 Macrocytosis 1+ 07/11/18 05:30 Target Cells 1+ 07/11/18 05:30 Acanthocytes (Spur) 2+ 07/11/18 05:30 Schistocytes 1+ 07/11/18 05:30 PT with INR 28.70 SEC (9.7-13.0) H 07/10/18 11:00 INR 2.41 (0.83-1.09) H 07/10/18 11:00 PTT (Actin FS) 44.4 SECONDS (25.2-36.5) H 07/10/18 11:00 Anticoagulation Therapy No Result Required. 07/11/18 09:26 Puncture Site Right brachial 07/11/18 09:26 Patient Temperature 93 07/11/18 06:00 ABG pH 7.28 (7.35-7.45) L 07/11/18 09: ABG pCO2 at Pt Temp 40.1 mmHg (35-45) D 07/11/18 09: ABG pO2 at Pt Temp 128.0 mmHg (68-100) H D 07/11/18 09: ABG HCO3 18.4 meq/L (22-26) L 07/11/18 09: ABG O2 Sat (Measured) 98.6 % (90-98.9) 07/11/18 09: ABG O2 Content 10.4 % vol (15-22) L 07/11/18 09: ABG Base Excess -7.2 meq/l (-2-2) L 07/11/18 09:26 Jaret Test Positive 07/11/18 09: VBG pH 7.35 (7.32-7.42) 07/10/18 10:58 POC VBG pCO2 39.0 mmHg (38-52) 07/10/18 10:58 POC VBG pO2 96.7 mmHg (28-48) H D 07/10/18 10:58 Mixed VBG HCO3 21.2 meq/L (19-25) 07/10/18 10:58 O2 Delivery Device Nrm 07/11/18 09: Oxygen Flow Rate 100% 07/11/18 09: Vent Mode No Result Required. 07/11/18 09: Vent Rate No Result Required. 07/11/18 09: Mechanical Rate No Result Required. 07/11/18 09: PEEP 0.0 cmH2O 07/11/18 09: Pressure Support Vent No Result Required. 07/11/18 09:26 Sodium 140 mmol/L (136-145) 07/11/18 05:30 Potassium 5.6 mmol/L (3.5-5.1) H 07/11/18 09:45 Chloride 111 mmol/L (98-107) H 07/11/18 05:30 Carbon Dioxide 23 mmol/L (21-32) 07/11/18 05:30 Anion Gap 6 MMOL/L (8-16) L 07/11/18 05:30 BUN 52 mg/dL (7-18) H 07/11/18 05:30 Creatinine 1.0 mg/dL (0.55-1.3) 07/11/18 05:30 Creat Clearance w eGFR > 60 (>60) 07/11/18 05:30 POC Glucometer 142.66471 UNITS (80-120) 07/11/18 11:45 Random Glucose 114 mg/dL (74-106) H 07/11/18 05:30 Hemoglobin A1c % 6.8 % (4.2-6.3) H 07/11/18 05:30 Lactic Acid 1.4 mmol/L (0.4-2.0) 07/11/18 09:45 Calcium 7.7 mg/dL (8.5-10.1) L 07/11/18 05:30 Phosphorus 6.8 mg/dL (2.5-4.9) H 07/11/18 05:30 Magnesium 2.8 mg/dL (1.8-2.4) H 07/11/18 05:30 Total Bilirubin 0.4 mg/dL (0.2-1) 07/11/18 05:30 AST 212 U/L (15-37) H 07/11/18 05:30 ALT 114 U/L (13-61) H 07/11/18 05:30 Alkaline Phosphatase 142 U/L (45-117) H 07/11/18 05:30 Creatine Kinase 179 IU/L (26-308) 07/10/18 16:00 Creatine Kinase Index 9.3 % (0.0-5.0) H* 07/10/18 16:00 CK-MB (CK-2) 16.8 ng/mL (0.5-3.6) H 07/10/18 16:00 Troponin I < 0.02 ng/ml (0.00-0.05) 07/10/18 16:00 B-Natriuretic Peptide 1180.8 pg/ml (5-450) H 07/10/18 11:00 Total Protein 5.8 g/dl (6.4-8.2) L 07/11/18 05:30 Albumin 2.5 g/dl (3.4-5.0) L 07/11/18 05:30 TSH 13.20 uIU/ml (0.358-3.74) H D 07/11/18 05:30 Free T4 0.88 ng/dl (0.76-1.16) 07/11/18 05:30 Urine Color Yellow 07/10/18 12:20 Urine Appearance Clear 07/10/18 12:20 Urine pH 5.0 (5.0-8.0) 07/10/18 12:20 Ur Specific [place] 1.017 (1.010-1.035) 07/10/18 12:20 Urine Protein Negative (NEGATIVE) 07/10/18 12:20 Urine Glucose (UA) Negative (NEGATIVE) 07/10/18 12:20 Urine Ketones Negative (NEGATIVE) 07/10/18 12:20 Urine Blood Negative (NEGATIVE) 07/10/18 12:20 Urine Nitrite Negative (NEGATIVE) 07/10/18 12:20 Urine Bilirubin Negative (<2.0 mg/dL) 07/10/18 12:20 Urine Urobilinogen 2.0 mg/dL (0.2-1.0) 07/10/18 12:20 Ur Leukocyte Esterase Negative (NEGATIVE) 07/10/18 12:20 Microbiology 07/10/18 11:15 Blood - Peripheral Venous Blood Culture - Preliminary NO GROWTH OBTAINED AFTER 24 HOURS, INCUBATION TO CONTINUE FOR 4 DAYS. 07/10/18 11:00 Blood - Peripheral Venous Blood Culture - Preliminary NO GROWTH OBTAINED AFTER 24 HOURS, INCUBATION TO CONTINUE FOR 4 DAYS. 07/10/18 12:20 Urine - Urine Clean Catch Urine Culture - Preliminary Staphylococcus Coagulase Neg Active Medications Al Hydroxide/Mg Hydroxide (Mylanta Oral Suspension -) 30 ml PO Q6H PRN PRN Reason: INDIGESTION Albuterol/Ipratropium (Duoneb -) 1 amp NEB RQID [facility] Last Admin: 07/11/18 11:40 Dose: 1 amp Atorvastatin Calcium (Lipitor -) 40 mg PO [facility] Last Admin: 07/10/18 23:05 Dose: Not Given Chlorhexidine Gluconate (Hibiclens For Decolonization -) 1 applic TP [facility] Last Admin: 07/10/18 23:04 Dose: Not Given Clonazepam (Klonopin -) 0.5 mg PO BID [facility] Last Admin: 07/10/18 23:04 Dose: Not Given Docusate Sodium (Colace -) 200 mg PO HS [facility] Last Admin: 07/10/18 23:04 Dose: Not Given Ferrous Sulfate (Feosol -) 325 mg PO DAILY [facility] Fludrocortisone Acetate (Florinef -) 0.05 mg PO DAILY [facility] Hydrocortisone Sodium Succinate (Solu-Cortef -) 50 mg IVPB Q6H-IV [facility] Piperacillin Sod/Tazobactam (Sod 3.375 gm/ Dextrose) 50 mls @ 100 mls/hr IVPB Q8H-IV [facility]; Protocol Last Admin: 07/11/18 10:59 Dose: 100 mls/hr Norepinephrine Bitartrate 8, (000 mcg/ Dextrose) 500 mls @ 18.75 mls/hr IV TITR [facility]; Protocol Last Admin: 07/11/18 12:20 Dose: 25 mcg/min, 93.75 mls/hr Sodium Chloride (Normal Saline -) 1,000 mls @ 50 mls/hr IV ASDIR [facility] Last Admin: 07/11/18 06:30 Dose: 50 mls/hr Insulin Aspart (Novolog Vial Sliding Scale -) 1 vial SQ TIDAC [facility]; Protocol Last Admin: 07/11/18 11:47 Dose: Not Given Levothyroxine Sodium (Synthroid Injection -) 25 mcg IVPUSH DAILY [facility] Mupirocin (Bactroban Ointment (For Decolonization) -) 1 applic NS BID [facility] Stop: 07/15/18 21:59 Last Admin: 07/11/18 09:53 Dose: 1 applic Polyethylene Glycol (Miralax (For Daily Use) -) 17 gm PO BID [facility] Last Admin: 07/10/18 23:05 Dose: Not Given Rivaroxaban (Xarelto -) 20 mg PO DAILY [facility] Senna (Senna -) 2 tab PO HS [facility] Last Admin: 07/10/18 23:05 Dose: Not Given Silver Sulfadiazine (Silvadene -) 1 applic TP DAILY [facility] Last Admin: 07/11/18 11:40 Dose: 1 applic IMAGING: -CXR (07/10): The prior study of 06/09/2018, again is a scoliosis with convexity to the right, weak inspiration, multi lead pacemaker, distended bowel in the upper abdomen, previous right shoulder surgery and there are increased left hemithorax markings compatible with some atelectasis and/or infiltrate. Follow- up recommended. -CXR (07/11): Since the prior study of 07/10/2018, there appears to be major consolidation in the left hemithorax with some sparing at the left base. There is a prominent mediastinum with pacemaker and distended bowel in the abdomen. The right lung is clear. There is a scoliosis with convexity to the right. There are degenerative spine and shoulder changes. There are left shoulder calcifications. A follow-up study is suggested with deep inspiration to clarify the left hemithorax changes. The sparing of the left base is unusual and one must make sure this is not a subtle pneumothorax. Again follow-up imaging is suggested -CXR (07/11): Since the prior study of 07/11/2018 at 0704 hours, the left hemithorax is slightly better aerated with still some infiltrate/atelectasis and no sign of a gross pneumothorax. The remainder the study is unchanged -DUPLEX US: No evidence of deep venous thrombosis. -CT Head without contrast: No evidence of acute intracranial pathology. ASSESSMENT/PLAN: 83 y/o M with PMHx of CHF, COPD, HTN, HLD, CAD (s/p stenting x7 and pacemaker), Atrial Fibrillation, DM, chronic venous insufficiency, BPH was BIBEMS from [facility] for AMS and was admitted to the ICU for severe sepsis due to Cellulitus. #Septic Shock -Likely due B/L lower extremity cellulitis -Duplex, CXR, Head CT noted above -Given 1.5L NS in ED -Was given vasopressin overnight that was tapered down -Central Line place, Continue on Levophed (20 mcg/min) -Continue Bear-Hugger -Continue NS @ 50 mls/hr -Continue Zosyn (Started on 07/10) -ID (Dr. Thomas) consulted -Blood, urine, wound culture pending -Hold home Anti-HTN meds -Continue Hydrocortisone, Fludrocortisone -Repeat CXR Noted reveals consolidation in the left hemithorax with some infiltrate/atelectasis -Placed on Venti mask @ 50% O2 -ABG reveals Mixed Acidosis picture; Repeat shows improvement -Chest PT -Started on Bipap PRN and HS -Maintain MAP >65, Titrate pressers as needed, Can starts Vasopressin drip #Hyperkalemia -In the setting of Acidosis -Received Calcium gluconate, D50, Insulin, Repeat EKG -Continue to monitor #Elevated TSH -Likely due to Severe Sepsis; Consider Euthyroid Sick Syndrome, Less likely Myxedema coma -Endocrinology (Dr. Duron) Consulted, Appreciate Rec's -T3, T4, Cortisol, ACTH pending -Given one dose PO Synthroid 50 mcg -Started on IV synthroid 25mcg Daily -Repeat labs after sepsis clears #AFib -Continue home dose Xarelto -Home dose Beta humberto held in the setting of Hypotension #DM -ISS, BGMs ACTID -A1c 6.8% -Hold Oral hypoglycemics #FEN -IV NS @ 50 mls/hr -Lytes wnl -Sodium controlled diet #PPx -DVT: Xarelto Dispo: ICU placement Visit type - Emergency Visit Emergency Visit: Yes ED Registration Date: 07/10/18 Care time: The patient presented to the Emergency Department on the above date and was hospitalized for further evaluation of their emergent condition. - New Patient This patient is new to me today: No - Critical Care Critical Care patient: No - Discharge Referral Referred to [facility] Med P.C.: No
--- NOTE | 2018-07-11 14:21 | PROC ---
Central Line Insertion Indication: Sepsis Central Line: Triple Lumen Catheter Anesthesia: 1% Lidocaine Sterile Technique: Yes Ultrasound Guided Assistance: Yes Position: Right Internal Jugular Post Insertion: Yes: Bilateral Chest Expansion, Chest X-Ray Ordered Sterile Dressing Applied: Yes
--- NOTE | 2018-07-11 14:29 | PN ---
Physical Exam: SUBJECTIVE: Patient seen and examined at bedside. ABG this morning revealed respiratory and metabolic acidosis with pH 7.15. Patient placed on non- rebreather mask, with repeat pH of 7.28. Patient placed back on 50% venti mask and saturating >92%. Patient is lethargic, only arousable to pain this morning, but started waking up throughout the day. Patient is moaning, and tries to open eyes. Central line placed today. Daughter (HCP) contacted by primary team. As per daughter, patient is full code. Will have to contact the "girlfriend" as daughter reports patient may have changed HCP. OBJECTIVE: Vital Signs Period Temp Pulse Resp BP Sys/Kuo Pulse Ox Last 24 Hr 89.8 F-98.9 F 60-67 15-24 66-122/40-81 97-100 GENERAL: The patient is lethargic, on 50% venti mask HEAD: Normal with no signs of trauma. NECK: Trachea midline, full range of motion, supple. LUNGS: +scattered rhonchi bilaterally. HEART: Regular rate and rhythm, S1, S2 without murmur, rub or gallop. ABDOMEN: Soft, nontender, nondistended, normoactive bowel sounds. UPPER EXTREMITIES: 2+ pulses, warm, well-perfused, no edema. LOWER EXTREMITIES: +erythema and warmth bilaterally with serosanguinous weeping lesions. SKIN: Warm, dry, normal turgor, +stage 1 sacral ulcer Laboratory Results - last 24 hr 07/10/18 07/10/18 07/10/18 10:58 16:00 16:39 WBC RBC Hgb Hct MCV MCH MCHC RDW Plt Count MPV Absolute Neuts (auto) Neutrophils % Neutrophils % (Manual) Band Neutrophils % Lymphocytes % Lymphocytes % (Manual) Monocytes % Monocytes % (Manual) Eosinophils % Eosinophils % (Manual) Basophils % Basophils % (Manual) Myelocytes % (Man) Promyelocytes % (Man) Blast Cells % (Manual) Nucleated RBC % Metamyelocytes Hypochromia Platelet Estimate Polychromasia Poikilocytosis Anisocytosis Microcytosis Macrocytosis Target Cells Acanthocytes (Spur) Schistocytes Anticoagulation Therapy Puncture Site Patient Temperature ABG pH ABG pCO2 at Pt Temp ABG pO2 at Pt Temp ABG HCO3 ABG O2 Sat (Measured) ABG O2 Content ABG Base Excess Jaret Test VBG pH 7.35 POC VBG pCO2 39.0 POC VBG pO2 96.7 H D Mixed VBG HCO3 21.2 O2 Delivery Device Oxygen Flow Rate Vent Mode Vent Rate Mechanical Rate PEEP Pressure Support Vent Sodium Potassium Chloride Carbon Dioxide Anion Gap BUN Creatinine Creat Clearance w eGFR POC Glucometer [id number] Random Glucose Hemoglobin A1c % Lactic Acid Calcium Phosphorus Magnesium Total Bilirubin AST ALT Alkaline Phosphatase Creatine Kinase 179 Creatine Kinase Index 9.3 H* CK-MB (CK-2) 16.8 H Troponin I < 0.02 Total Protein Albumin TSH Free T4 0.87 07/11/18 07/11/18 07/11/18 05:30 05:30 05:30 WBC 17.3 H RBC 2.23 L Hgb 7.9 L Hct 23.8 L MCV 106.8 H MCH 35.6 H MCHC 33.3 RDW 18.4 H Plt Count 237 MPV 9.2 Absolute Neuts (auto) 16.2 H Neutrophils % 93.7 H Neutrophils % (Manual) 63.0 Band Neutrophils % 26.0 Lymphocytes % 1.7 L D Lymphocytes % (Manual) 4.0 L Monocytes % 4.4 Monocytes % (Manual) 7 Eosinophils % 0.1 D Eosinophils % (Manual) 0.0 Basophils % 0.1 Basophils % (Manual) 0.0 Myelocytes % (Man) 0 Promyelocytes % (Man) 0 Blast Cells % (Manual) 0 Nucleated RBC % 0 Metamyelocytes 0 Hypochromia 0 Platelet Estimate Normal Polychromasia 0 Poikilocytosis 3+ Anisocytosis 1+ Microcytosis 1+ Macrocytosis 1+ Target Cells 1+ Acanthocytes (Spur) 2+ Schistocytes 1+ Anticoagulation Therapy Puncture Site Patient Temperature ABG pH ABG pCO2 at Pt Temp ABG pO2 at Pt Temp ABG HCO3 ABG O2 Sat (Measured) ABG O2 Content ABG Base Excess Jaret Test VBG pH POC VBG pCO2 POC VBG pO2 Mixed VBG HCO3 O2 Delivery Device Oxygen Flow Rate Vent Mode Vent Rate Mechanical Rate PEEP Pressure Support Vent Sodium 140 Potassium 5.7 H Chloride 111 H Carbon Dioxide 23 Anion Gap 6 L BUN 52 H Creatinine 1.0 Creat Clearance w eGFR > 60 POC Glucometer Random Glucose 114 H Hemoglobin A1c % Lactic Acid Calcium 7.7 L Phosphorus 6.8 H Magnesium 2.8 H Total Bilirubin 0.4 AST 212 H ALT 114 H Alkaline Phosphatase 142 H Creatine Kinase Creatine Kinase Index CK-MB (CK-2) Troponin I Total Protein 5.8 L Albumin 2.5 L TSH 13.20 H D Free T4 0.88 07/11/18 07/11/18 07/11/18 05:30 06:00 06:47 WBC RBC Hgb Hct MCV MCH MCHC RDW Plt Count MPV Absolute Neuts (auto) Neutrophils % Neutrophils % (Manual) Band Neutrophils % Lymphocytes % Lymphocytes % (Manual) Monocytes % Monocytes % (Manual) Eosinophils % Eosinophils % (Manual) Basophils % Basophils % (Manual) Myelocytes % (Man) Promyelocytes % (Man) Blast Cells % (Manual) Nucleated RBC % Metamyelocytes Hypochromia Platelet Estimate Polychromasia Poikilocytosis Anisocytosis Microcytosis Macrocytosis Target Cells Acanthocytes (Spur) Schistocytes Anticoagulation Therapy No Result Required. Puncture Site Left brachial Patient Temperature 93 ABG pH 7.15 L* ABG pCO2 at Pt Temp 57.2 H ABG pO2 at Pt Temp 81.4 ABG HCO3 19.2 L ABG O2 Sat (Measured) 91.6 ABG O2 Content 11.0 L ABG Base Excess -9.0 L Jaret Test Positive VBG pH POC VBG pCO2 POC VBG pO2 Mixed VBG HCO3 O2 Delivery Device Venti mask Oxygen Flow Rate 50% Vent Mode No Result Required. Vent Rate No Result Required. Mechanical Rate No Result Required. PEEP Pressure Support Vent No Result Required. Sodium Potassium Chloride Carbon Dioxide Anion Gap BUN Creatinine Creat Clearance w eGFR POC Glucometer [phone] Random Glucose Hemoglobin A1c % 6.8 H Lactic Acid Calcium Phosphorus Magnesium Total Bilirubin AST ALT Alkaline Phosphatase Creatine Kinase Creatine Kinase Index CK-MB (CK-2) Troponin I Total Protein Albumin TSH Free T4 07/11/18 07/11/18 07/11/18 09:26 09:45 09:45 WBC RBC Hgb Hct MCV MCH MCHC RDW Plt Count MPV Absolute Neuts (auto) Neutrophils % Neutrophils % (Manual) Band Neutrophils % Lymphocytes % Lymphocytes % (Manual) Monocytes % Monocytes % (Manual) Eosinophils % Eosinophils % (Manual) Basophils % Basophils % (Manual) Myelocytes % (Man) Promyelocytes % (Man) Blast Cells % (Manual) Nucleated RBC % Metamyelocytes Hypochromia Platelet Estimate Polychromasia Poikilocytosis Anisocytosis Microcytosis Macrocytosis Target Cells Acanthocytes (Spur) Schistocytes Anticoagulation Therapy No Result Required. Puncture Site Right brachial Patient Temperature ABG pH 7.28 L ABG pCO2 at Pt Temp 40.1 D ABG pO2 at Pt Temp 128.0 H D ABG HCO3 18.4 L ABG O2 Sat (Measured) 98.6 ABG O2 Content 10.4 L ABG Base Excess -7.2 L Jaret Test Positive VBG pH POC VBG pCO2 POC VBG pO2 Mixed VBG HCO3 O2 Delivery Device Nrm Oxygen Flow Rate 100% Vent Mode No Result Required. Vent Rate No Result Required. Mechanical Rate No Result Required. PEEP 0.0 Pressure Support Vent No Result Required. Sodium Potassium 5.6 H Chloride Carbon Dioxide Anion Gap BUN Creatinine Creat Clearance w eGFR POC Glucometer Random Glucose Hemoglobin A1c % Lactic Acid 1.4 Calcium Phosphorus Magnesium Total Bilirubin AST ALT Alkaline Phosphatase Creatine Kinase Creatine Kinase Index CK-MB (CK-2) Troponin I Total Protein Albumin TSH Free T4 07/11/18 07/11/18 09:45 11:45 WBC 16.7 H RBC 2.20 L Hgb 7.7 L Hct 23.2 L MCV 105.7 H MCH 34.9 H MCHC 33.0 RDW 18.6 H Plt Count 251 MPV 9.5 Absolute Neuts (auto) Neutrophils % Neutrophils % (Manual) Band Neutrophils % Lymphocytes % Lymphocytes % (Manual) Monocytes % Monocytes % (Manual) Eosinophils % Eosinophils % (Manual) Basophils % Basophils % (Manual) Myelocytes % (Man) Promyelocytes % (Man) Blast Cells % (Manual) Nucleated RBC % Metamyelocytes Hypochromia Platelet Estimate Polychromasia Poikilocytosis Anisocytosis Microcytosis Macrocytosis Target Cells Acanthocytes (Spur) Schistocytes Anticoagulation Therapy Puncture Site Patient Temperature ABG pH ABG pCO2 at Pt Temp ABG pO2 at Pt Temp ABG HCO3 ABG O2 Sat (Measured) ABG O2 Content ABG Base Excess Jaret Test VBG pH POC VBG pCO2 POC VBG pO2 Mixed VBG HCO3 O2 Delivery Device Oxygen Flow Rate Vent Mode Vent Rate Mechanical Rate PEEP Pressure Support Vent Sodium Potassium Chloride Carbon Dioxide Anion Gap BUN Creatinine Creat Clearance w eGFR POC Glucometer 142.79499 Random Glucose Hemoglobin A1c % Lactic Acid Calcium Phosphorus Magnesium Total Bilirubin AST ALT Alkaline Phosphatase Creatine Kinase Creatine Kinase Index CK-MB (CK-2) Troponin I Total Protein Albumin TSH Free T4 Active Medications Generic Name Dose Route Start Last Admin Trade Name Freq PRN Reason Stop Dose Admin Al Hydroxide/Mg Hydroxide 30 ml 07/10/18 19:52 Mylanta Oral Suspension - PO Q6H PRN INDIGESTION Albuterol/Ipratropium 1 amp 07/10/18 20:15 07/11/18 11:40 Duoneb - NEB 1 amp RQID AYDIN Administration Atorvastatin Calcium 40 mg 07/10/18 22:00 07/10/18 23:05 Lipitor - PO Not Given HS AYDIN Chlorhexidine Gluconate 1 applic 07/10/18 22:00 07/10/18 23:04 Hibiclens For Decolonization - TP Not Given HS AYDIN Clonazepam 0.5 mg 07/10/18 22:00 07/10/18 23:04 Klonopin - PO Not Given BID AYDIN Docusate Sodium 200 mg 07/10/18 22:00 07/10/18 23:04 Colace - PO Not Given HS AYDIN Ferrous Sulfate 325 mg 07/11/18 10:00 Feosol - PO DAILY AYDIN Fludrocortisone Acetate 0.05 mg 07/12/18 10:00 Florinef - PO DAILY AYDIN Hydrocortisone Sodium Succinate 50 mg 07/11/18 15:00 Solu-Cortef - IVPB Q6H-IV AYDIN Piperacillin Sod/Tazobactam 50 mls @ 100 mls/hr 07/11/18 02:00 07/11/18 10:59 Sod 3.375 gm/ Dextrose IVPB 100 mls/hr Q8H-IV AYDIN Administration Protocol Norepinephrine Bitartrate 8, 500 mls @ 18.75 mls/hr 07/11/18 05:45 07/11/18 12:20 000 mcg/ Dextrose IV 25 mcg/min TITR AYDIN 93.75 mls/hr Administration Protocol 5 MCG/MIN Sodium Chloride 1,000 mls @ 50 mls/hr 07/11/18 06:26 07/11/18 06:30 Normal Saline - IV 50 mls/hr ASDIR AYDIN Administration Insulin Aspart 1 vial 07/10/18 18:15 07/11/18 11:47 Novolog Vial Sliding Scale - SQ Not Given TIDAC AYDIN Protocol Levothyroxine Sodium 25 mcg 07/12/18 10:00 Synthroid Injection - IVPUSH DAILY AYDIN Mupirocin 1 applic 07/10/18 22:00 07/11/18 09:53 Bactroban Ointment (For Decolonization) - NS 07/15/18 21:59 1 applic BID AYDIN Administration Polyethylene Glycol 17 gm 07/10/18 22:00 07/10/18 23:05 Miralax (For Daily Use) - PO Not Given BID AYDIN Rivaroxaban 20 mg 07/11/18 10:00 Xarelto - PO DAILY AYDIN Senna 2 tab 07/10/18 22:00 07/10/18 23:05 Senna - PO Not Given HS AYDIN Silver Sulfadiazine 1 applic 07/11/18 10:00 07/11/18 11:40 Silvadene - TP 1 applic DAILY AYDIN Administration ASSESSMENT/PLAN: Patient is an 83 year old male with significant past medical history of sys/ diastolic CHF; COPD; HTN; HLD; CAD (s/p stenting x7 and pacemaker); Atrial Fibrillation; DM; chronic venous insufficiency; BPH s/p TURP; CKD; anemia for B/ L leg pain and abnormal gait was sent from [facility] for evaluation of B/L lower extremity pain. #Infectious Disease 1)Septic shock likely secondary to cellulitis of B/L Lower extremity -On arrival, BP: 88/75mmHg, Temp 88.6 with normal pulse and saturating 100 % in RA -In the ED, IV NS boluses given with minimal response on BP -Central placed, patient started on vasopressors -Now on Levophed @ 20mcg/min -Vasopressin drip may be started -Titrate pressors to maintain MAP >65 -CVP monitoring q12h. -ID (Dr. Thomas) consulted. Recommendations appreciated. -Vanc/Zosyn given at the ED -Continue Zosyn 3.375 q8h -IVF -monitor neuro status -Blood cultures/urine cultures pending -Dr. Estrada consulted. #Endocrinology 1)Hypothyroidism -TSH elevated 14.8 --> 13.2 -free T4 0.8 -Hypotension, hypothermia, hypoglycemia likely 2/2 sepsis. -Endocrinology (Dr. Duron) consulted. Recommendations appreciated. -IV synthroid 25mcg daily until able to take PO -IV fluid for rehydration -IV antibiotic -IV steroid adrenal support 2)Diabetes Mellitus -A1c - 6.8 -Insulin sliding scale implemented -BGM ACHS -will monitor hypoglycemia #Cardiovascular 1)Systolic/Diastolic CHF: not on exacerbation -BNP 1180. -Echo (05/02/18): Mild AR, EF 40-50%, Moderate , LV mild to mod decreased systolic function, mild-mod TR -Hold Lasix for now -Gentle hydration on IV NS @50ml/hr 2)Prolonged QTc: 64 -Avoid medications causing prolonged QTc. -EKG this am: QTc 535 3)CAD (s/p stenting x7 and pacemaker) -Continue [id number] PO HS -On Xarelto 20mg daily 4)Hypertension -patient currently hypotensive -hold home anti-hypertensive medications -On Levophed 20 mcg/min -Will start Vasopressin if patient continues to be hypotensive -Titrate pressors to maintain MAP >65 -on IVF 5)Hyperlipidemia -Lipitor 40mg PO HS 6)Atrial Fibrillation: rate controlled -On Xarelto 20mg daily #Pulmonology 1)COPD -Duoneb QID 2)Obstructive Sleep Apnea -Bipap at night time and PRN: 20/06 #Nephrology 1)CKD -elevated BUN likely 2/2 to dehydration -IVF given 2)Hyperkalemia -Ca gluconate, Insulin and D50 IVPB given -will continue to monitor #Hematology 1)Macrocytic anemia -H/H 7.9/23.8 -monitor CBC -will transfuse with Hgb <7 #FEN -IV NS @50ml/hr -HyperK, Ca gluconate, D50 and insulin given -Routine bmp monitoring -Patient lethargic, NPO for now. #Prophylaxis 1) DVT - on Xarelto 20mg #Disposition -full code -ICU for closer monitoring Visit type - Emergency Visit Emergency Visit: Yes ED Registration Date: 07/10/18 Care time: The patient presented to the Emergency Department on the above date and was hospitalized for further evaluation of their emergent condition. - New Patient This patient is new to me today: Yes Date on this admission: 07/11/18 - Critical Care Critical Care patient: Yes Total Critical Care Time (in minutes): 45 Critical Care Statement: The care of this patient involved high complexity decision making to prevent further life threatening deterioration of the patient 's condition and/or to evaluate & treat vital organ system(s) failure or risk of failure.
[2018-07-11] MEDS: FERROUS SO4 325 MG TABLET (FP) PO SCH (15:23)
[2018-07-11] MEDS: POLYETHYLENE GLYCOL 3350 119 GM BTL PO SCH ×2 (15:24→21:14)
[2018-07-11] MEDS: clonazePAM 0.5 MG TABLET PO SCH ×2 (15:24→21:14)
[2018-07-11] MEDS: RIVAROXABAN 20 MG TABLET PO SCH (15:24)
--- NOTE | 2018-07-11 16:22 | CONSULT ---
- Consultation REQUESTING PROVIDER: CONSULT REQUEST: We have been asked to surgically evaluate this patient for (LE wounds/cellulitis, sacral ulcer). PCP:Marcos Musa HISTORY OF PRESENT ILLNESS: 83 y/o M w/ PMHx CHF, COPD, HTN, HLD, CAD (s/p stenting x7 and pacemaker), Atrial Fibrillation, DM, chronic venous insufficiency, BPH was BIBEMS from [facility] for AMS on 07/10. Pt with Bipap in place, lethargic and altered, unable to provide HPI or ROS. Vascular consulted for le wounds/cellulitis and sacral ulcer. PMHx: as above PSHx: as above Home Medications Medication Instructions Recorded Albuterol 2.5/Ipratropium 0.5 1 neb IH QID 07/10/18 [Duoneb -] Atorvastatin Ca [Lipitor] 40 mg PO HS 07/10/18 Carvedilol [Coreg -] 6.25 mg PO BID 07/10/18 Docusate Sodium [Colace] 200 mg PO HS 07/10/18 Doxazosin Mesylate [Cardura Xl] 8 mg PO HS 07/10/18 Ferrous Sulfate [Feosol] 325 mg PO DAILY 07/10/18 Furosemide [Lasix -] 40 mg PO DAILY 07/10/18 Insulin Aspart [Novolog] 100 unit SQ ACHS 07/10/18 Insulin Detemir [Levemir Flextouch] 10 unit SQ HS 07/10/18 Losartan Potassium [Cozaar -] 50 mg PO DAILY 07/10/18 Mag Hydrox/Al Hydrox/Simeth 30 ml PO Q6H PRN 07/10/18 [Mylanta *Suspension*] Polyethylene Glycol 3350 [Miralax 17 gm PO BID 07/10/18 (For Daily Use) -] Rivaroxaban [Xarelto -] 20 mg PO DAILY 07/10/18 Sennosides [Senna] 17.2 mg PO HS 07/10/18 Silver Sulfadiazine 1% Top Cr 1 applic TP DAILY 07/10/18 [Silvadene -] clonazePAM [Klonopin -] 0.5 mg PO BID 07/10/18 Allergies Allergy/AdvReac Type Severity Reaction Status Date / Time No Known Drug Allergies Allergy Verified 07/10/18 10:53 REVIEW OF SYSTEMS: unable to assess due to AMS PHYSICAL EXAM: GENERAL: awake on Bipap, does not answer questions or follow commands. Currently being changed/cleaned by RN's. HEAD: Normal with no signs of trauma. Lower back: .5x.5cm circular stage 2 ulcer, clean based no surrounding erythema , no drainage. LOWER EXTREMITIES: b/l le's with multiple eschars noted (?chemical clements) circumferentially (range roughly 1-9cm in length and 1-3.5cm in width). No crepitus or fluctuance. +cellulitis L>>R, L great toe with avulsed toe nail. DP and PT b/l with audible doppler signals. No peripheral edema. Vital Signs Temperature 97.0 F L 07/11/18 14:00 Pulse Rate 67 07/11/18 12:20 Respiratory Rate 30 H 07/11/18 14:00 Blood Pressure 114/59 L 07/11/18 14:00 O2 Sat by Pulse Oximetry (%) 100 07/11/18 12:38 Lab Results WBC 16.7 K/mm3 (4.0-10.0) H 07/11/18 09:45 RBC 2.20 M/mm3 (4.00-5.60) L 07/11/18 09:45 Hgb 7.7 GM/dL (11.7-16.9) L 07/11/18 09:45 Hct 23.2 % (35.4-49) L 07/11/18 09:45 MCV 105.7 fl (80-96) H 07/11/18 09:45 MCHC 33.0 g/dl (32.0-35.9) 07/11/18 09:45 RDW 18.6 % (11.9-15.9) H 07/11/18 09:45 Plt Count 251 K/MM3 (134-434) 07/11/18 09:45 Sodium 140 mmol/L (136-145) 07/11/18 05:30 Potassium 5.6 mmol/L (3.5-5.1) H 07/11/18 09:45 Chloride 111 mmol/L (98-107) H 07/11/18 05:30 Carbon Dioxide 23 mmol/L (21-32) 07/11/18 05:30 Anion Gap 6 MMOL/L (8-16) L 11/06/18 05:30 BUN 52 mg/dL (7-18) H 07/11/18 05:30 Creatinine 1.0 mg/dL (0.55-1.3) 07/11/18 05:30 Random Glucose 114 mg/dL (74-106) H 07/11/18 05:30 Calcium 7.7 mg/dL (8.5-10.1) L 07/11/18 05:30 INR 2.41 (0.83-1.09) H 07/10/18 11:00 A/P: 83 y/o M w/ PMHx CHF, COPD, HTN, HLD, CAD (s/p stenting x7 and pacemaker), Atrial Fibrillation, DM, chronic venous insufficiency, BPH was BIBEMS from [facility] for AMS on 07/10. Pt with Bipap in place, lethargic and altered, unable to provide HPI or ROS. Vascular consulted for le wounds/cellulitis and sacral ulcer. B/L LEs with multiple eschars noted with cellulitis L>>R (?chemical clements), small clean based sacral ulcer with no signs of infection. -Reposition every two hours while in bed -Air mattress recommended -Use drawsheets and Trendelenburg when repositioning to reduce friction and shear -Manageincontinence via timely cleansing, use of appropriate incontinence disposables and use of barrier ointment to intact skin -Ensure adequate hydration/nutrition, supplementation per primary team -Ensure off-loading to all bony areas (heels, ankles, hips and tailbone) with Allevyn/Optifoam -Clean open wounds with normal saline and apply Silvadene -Continue antibiotics per ID/medical team -Elevate the lower extremity above the level of the heart at all times while at rest -Recommend Podiatry consult for R great toe d/w attending Dr Estrada
[2018-07-11] MEDS ORDERED: SODIUM POLYSTYRENE SULFONATE 15 GM/60 ML BOTTLE PO ONE (20:09)
[2018-07-11] MEDS ORDERED: ALBUTEROL SO4 0.083% IH SOL 2.5 MG/3 ML VIAL.NEB. NEB ONE (20:09)
[2018-07-11] MEDS: DOCUSATE SODIUM 100 MG CAPSULE (FP) PO SCH (21:13)
[2018-07-11] MEDS: CHLORHEXIDINE GLUCONATE 4% CLEANSER FOR DECOLONIZATION TP SCH (21:13)
[2018-07-11] MEDS: ATORVASTATIN CA 40 MG TABLET (FP) PO SCH (21:14)
[2018-07-11] MEDS: SENNOSIDES 8.6MG TABLET (FP) PO SCH (21:14)
[2018-07-12] MEDS ORDERED: ACETAMINOPHEN 1000 MG/100 ML VIAL (NON FORMULARY) IVPB ONE (01:12)
[2018-07-12] MEDS ORDERED: LORazepam 2 MG/ML SDV VIAL IVPUSH ONE (01:13)
[2018-07-12] MEDS ORDERED: DEXTROSE 50%-WATER - 25 GM/50 ML VIAL IVPUSH ONE (01:14)
[2018-07-12] MEDS ORDERED: ALBUTEROL SO4 0.083% IH SOL 2.5 MG/3 ML VIAL.NEB. NEB ONE (01:14)
[2018-07-12] MEDS ORDERED: INSULIN REGULAR HUMAN 100 UNITS/ML *VIAL IVPUSH ONE (01:14)
[2018-07-12] MEDS ORDERED: DEXTROSE 50%-WATER 25 GM/50 ML DISP.SYRIN ONE (01:36)
[2018-07-12] MEDS: NOREPINEPHRINE BITARTRATE 8,000 MCG in DEXTROSE 5%-WATER - 492 ML IV SCH ×3 (01:51→13:00)
[2018-07-12] MEDS ORDERED: PIPERACILLIN/TAZOBACTAM 3.375 GM VIAL IVPB ONE ×3 (01:52→18:19)
[2018-07-12] MEDS: PIPERACILLIN/TAZOB 3.375 GM 3.375 GM in DEXTROSE 5%-WATER - 50 ML IVPB SCH ×3 (01:52→18:26)
[2018-07-12] MEDS ORDERED: DEXTROSE 5%-WATER - 50 ML IVPB ONE ×3 (01:52→18:19)
[2018-07-12] MEDS: HYDROCORTISONE SOD SUCCINATE 100 MG/2 ML VIAL IVPB SCH ×4 (02:01→21:53)
[2018-07-12] MEDS ORDERED: NOREPINEPHRINE BITARTRATE 4 MG/4 ML ML IV ONE ×2 (06:00→16:46)
[2018-07-12] MEDS: INSULIN SLIDING SCALE (NOVOLOG) 1 VIAL SQ SCH ×2 (06:04→13:27)
[2018-07-12 06:26] LABS: BASO % 0.1 % (0-2.0); HEMATOCRIT 22.5 % (35.4-49); HEMOGLOBIN 7.2 GM/dL (11.7-16.9); LYMPH % 1.8 % (8-40); MCH 33.5 pg (25.7-33.7); MEAN CELL VOLUME 104.5 fl (80-96); MEAN PLT VOLUME 9.4 fl (7.5-11.1); NEUT % 94.1 % (42.8-82.8); PLATELET COUNT 261 K/MM3 (134-434); RBC 2.15 M/mm3 (4.00-5.60); RDW 18.4 % (11.9-15.9)
[2018-07-12 06:41] LABS: INR 2.33 (0.83-1.09); PROTHROMBIN TIME (PATIENT) 27.7 SEC (9.7-13.0)
[2018-07-12 06:43] LABS: ACTIVATED PTT 36.8 SECONDS (25.2-36.5)
[2018-07-12 07:08] LABS: ARTERIAL BLD GAS O2 SATURATION 91.8 % (90-98.9); ARTERIAL BLOOD GAS BASE EXCESS -7.3 meq/l (-2-2); ARTERIAL BLOOD GAS PCO2 28.1 mmHg (35-45); ARTERIAL BLOOD GAS PO2 68.4 mmHg (68-100); ARTERIAL BLOOD GAS pH 7.38 (7.35-7.45)
[2018-07-12] MEDS: ALBUTEROL SO4 2.5/IPRATROPIUM 0.5 INH SOL 3 ML VIAL.NEB. NEB SCH ×4 (07:40→21:46)
[2018-07-12 07:41] LABS: ALBUMIN 2.3 g/dl (3.4-5.0); ALK PHOS 139 U/L (45-117); ANION GAP 13 MMOL/L (8-16); BILIRUBIN,TOTAL 0.6 mg/dL (0.2-1); BLOOD UREA NITROGEN 60 mg/dL (7-18); CALCIUM 8.1 mg/dL (8.5-10.1); CHLORIDE 109 mmol/L (98-107); CO2 18 mmol/L (21-32); CREATININE 1.5 mg/dL (0.55-1.3); GLUCOSE,RANDOM 229 mg/dL (74-106); MAGNESIUM 2.9 mg/dL (1.8-2.4); PHOSPHOROUS 5.5 mg/dL (2.5-4.9); POTASSIUM 5.6 mmol/L (3.5-5.1); SGOT/AST 456 U/L (15-37); SGPT/ALT 238 U/L (13-61); SODIUM 140 mmol/L (136-145); TOT PROT 5.5 g/dl (6.4-8.2)
--- NOTE | 2018-07-12 07:48 | PN ---
Teaching Attending Note Name of Resident: Gwen Richardson ATTENDING PHYSICIAN STATEMENT I saw and evaluated the patient. I reviewed the resident's note and discussed the case with the resident. I agree with the resident's findings and plan as documented. SUBJECTIVE: Patient is in ICU, Having difficulty breathing, discussed with ICU team , will be intubated since having difficulty with breathing. Events noted overnight. OBJECTIVE: Vital Signs Temperature 98.6 F 07/12/18 06:00 Pulse Rate 64 07/12/18 06:00 Respiratory Rate 26 H 07/12/18 06:00 Blood Pressure 124/70 07/12/18 06:00 O2 Sat by Pulse Oximetry (%) 100 07/11/18 22:00 GENERAL: Lethargic, HEAD: NCAT; EYES: Pinpoint pupils NECK: B/L JVD, Right Sided IJ Placed LUNGS: Bibasilar Rhonchi, on 50% Ventimask HEART: Regular rate and rhythm, normal S1 and S2, LLSB Murmur ABDOMEN: Soft, nontender, not distended, normoactive bowel sounds, no guarding : Arroyo catheter present draining Dark red urine BACK: Stage 2 ulcer superior to the gluteal fold without active drainage or surrounding erythema EXTREMITIES: 2+ pulses, positive for edema CBCD WBC 23.0 K/mm3 (4.0-10.0) H 07/12/18 05:30 RBC 2.15 M/mm3 (4.00-5.60) L 07/12/18 05:30 Hgb 7.2 GM/dL (11.7-16.9) L 07/12/18 05:30 Hct 22.5 % (35.4-49) L 07/12/18 05:30 MCV 104.5 fl (80-96) H 07/12/18 05:30 MCHC 32.0 g/dl (32.0-35.9) 07/12/18 05:30 RDW 18.4 % (11.9-15.9) H 07/12/18 05:30 Plt Count 261 K/MM3 (134-434) 07/12/18 05:30 MPV 9.4 fl (7.5-11.1) 07/12/18 05:30 CMP Sodium 140 mmol/L (136-145) 07/12/18 05:30 Potassium 5.6 mmol/L (3.5-5.1) H 07/12/18 05:30 Chloride 109 mmol/L (98-107) H 07/12/18 05:30 Carbon Dioxide 18 mmol/L (21-32) L 07/12/18 05:30 Anion Gap 13 MMOL/L (8-16) 07/12/18 05:30 BUN 60 mg/dL (7-18) H 07/12/18 05:30 Creatinine 1.5 mg/dL (0.55-1.3) H 07/12/18 05:30 Creat Clearance w eGFR 44.69 (>60) 07/12/18 05:30 Random Glucose 229 mg/dL (74-106) H 07/12/18 05:30 Calcium 8.1 mg/dL (8.5-10.1) L 07/12/18 05:30 Total Bilirubin 0.6 mg/dL (0.2-1) 07/12/18 05:30 AST 456 U/L (15-37) H 07/12/18 05:30 ALT 238 U/L (13-61) H 07/12/18 05:30 Alkaline Phosphatase 139 U/L (45-117) H 07/12/18 05:30 Total Protein 5.5 g/dl (6.4-8.2) L 07/12/18 05:30 Albumin 2.3 g/dl (3.4-5.0) L 07/12/18 05:30 CARDIAC ENZYMES Creatine Kinase 179 IU/L (26-308) 07/10/18 16:00 Troponin I < 0.02 ng/ml (0.00-0.05) 07/10/18 16:00 Current Medications Generic Name Dose Route Start Last Admin Trade Name Freq PRN Reason Stop Dose Admin Al Hydroxide/Mg Hydroxide 30 ml 07/10/18 19:52 Mylanta Oral Suspension - PO Q6H PRN INDIGESTION Albuterol/Ipratropium 1 amp 07/10/18 20:15 07/11/18 20:30 Duoneb - NEB 1 amp RQID AYDIN Administration Atorvastatin Calcium 40 mg 07/10/18 22:00 07/11/18 21:14 Lipitor - PO 40 mg HS AYDIN Administration Chlorhexidine Gluconate 1 applic 07/10/18 22:00 07/11/18 21:13 Hibiclens For Decolonization - TP 1 applic HS AYDIN Administration Clonazepam 0.5 mg 07/10/18 22:00 07/11/18 21:14 Klonopin - PO 0.5 mg BID AYDIN Administration Docusate Sodium 200 mg 07/10/18 22:00 07/11/18 21:13 Colace - PO 200 mg HS AYDIN Administration Ferrous Sulfate 325 mg 07/11/18 10:00 07/11/18 15:23 Feosol - PO Not Given DAILY AYDIN Fludrocortisone Acetate 0.05 mg 07/12/18 10:00 Florinef - PO DAILY AYDIN Hydrocortisone Sodium Succinate 50 mg 07/11/18 15:00 07/12/18 02:01 Solu-Cortef - IVPB 50 mg Q6H-IV AYDIN Administration Piperacillin Sod/Tazobactam 50 mls @ 100 mls/hr 07/11/18 02:00 07/12/18 01:52 Sod 3.375 gm/ Dextrose IVPB 100 mls/hr Q8H-IV AYDIN Administration Protocol Norepinephrine Bitartrate 8, 500 mls @ 18.75 mls/hr 07/11/18 05:45 07/12/18 06:05 000 mcg/ Dextrose IV 22 mcg/min TITR AYDIN 82.5 mls/hr Administration Protocol 5 MCG/MIN Sodium Chloride 1,000 mls @ 50 mls/hr 07/11/18 06:26 07/11/18 06:30 Normal Saline - IV 50 mls/hr ASDIR AYDIN Administration Insulin Aspart 1 vial 07/10/18 18:15 07/12/18 06:04 Novolog Vial Sliding Scale - SQ 2 units TIDAC AYDIN Administration Protocol Levothyroxine Sodium 25 mcg 07/12/18 10:00 Synthroid Injection - IVPUSH DAILY AYDIN Mupirocin 1 applic 07/10/18 22:00 07/11/18 21:12 Bactroban Ointment (For Decolonization) - NS 07/15/18 21:59 1 applic BID AYDIN Administration Polyethylene Glycol 17 gm 07/10/18 22:00 07/11/18 21:14 Miralax (For Daily Use) - PO 17 grams BID AYDIN Administration Rivaroxaban 20 mg 07/11/18 10:00 07/11/18 15:24 Xarelto - PO Not Given DAILY AYDIN Senna 2 tab 07/10/18 22:00 07/11/18 21:14 Senna - PO 2 tab HS AYDIN Administration Silver Sulfadiazine 1 applic 07/11/18 16:40 Silvadene - TP DAILY AYDIN Home Medications Medication Instructions Recorded Albuterol 2.5/Ipratropium 0.5 1 neb IH QID 07/10/18 [Duoneb -] Atorvastatin Ca [Lipitor] 40 mg PO HS 07/10/18 Carvedilol [Coreg -] 6.25 mg PO BID 07/10/18 Docusate Sodium [Colace] 200 mg PO HS 07/10/18 Doxazosin Mesylate [Cardura Xl] 8 mg PO HS 07/10/18 Ferrous Sulfate [Feosol] 325 mg PO DAILY 07/10/18 Furosemide [Lasix -] 40 mg PO DAILY 07/10/18 Insulin Aspart [Novolog] 100 unit SQ ACHS 07/10/18 Insulin Detemir [Levemir Flextouch] 10 unit SQ HS 07/10/18 Losartan Potassium [Cozaar -] 50 mg PO DAILY 07/10/18 Mag Hydrox/Al Hydrox/Simeth 30 ml PO Q6H PRN 07/10/18 [Mylanta *Suspension*] Polyethylene Glycol 3350 [Miralax 17 gm PO BID 07/10/18 (For Daily Use) -] Rivaroxaban [Xarelto -] 20 mg PO DAILY 07/10/18 Sennosides [Senna] 17.2 mg PO HS 07/10/18 Silver Sulfadiazine 1% Top Cr 1 applic TP DAILY 07/10/18 [Silvadene -] clonazePAM [Klonopin -] 0.5 mg PO BID 07/10/18 Microbiology 07/11/18 03:30 Leg - Right Lower Gram Stain - Final 07/11/18 03:30 Leg - Right Lower Wound Culture - Preliminary Pseudomonas Aeruginosa Klebsiella Oxytoca Mr S Aureus Enterococcus Faecalis 07/10/18 11:15 Blood - Peripheral Venous Blood Culture - Preliminary NO GROWTH OBTAINED AFTER 96 HOURS, INCUBATION TO CONTINUE FOR 1 DAYS. 07/10/18 11:00 Blood - Peripheral Venous Blood Culture - Preliminary NO GROWTH OBTAINED AFTER 96 HOURS, INCUBATION TO CONTINUE FOR 1 DAYS. 07/10/18 12:20 Urine - Urine Clean Catch Urine Culture - Final Staphylococcus Warneri ASSESSMENT AND PLAN: Patient is a 83 y/o man with h/o CAD, s/p stents, permanent A fib, Systolic heart failure, HTN, HLP, DM , CKD , Anemia, COPD,recent admission for acute CHF exacerbation who was sent from [place] for LE pain and was found to have hypothermia and hypotension # Sepsis shock with LE cellulites growing the organism as above , on levophed, cont IVF, On Zosyn, and stress dose hydrocortisone # Acute hypoxic, hypercapnic resp failure as per icu team will be intubated if does not improve. # Hyperkalemia: likely due to acidosis . not on any meds that increase K. will continue to monitor #Abn TFT, Elevated TSH , likely due to sick euthyroid syndrome, will repeat the level post recovery # H/o A fib: On Xarelto , hold coreg due to hypotension . # H/o CHF: not in acute decompensated CHF now, hold lasix. patient is in ICU DVt Px: SCDs.
[2018-07-12] MEDS ORDERED: SODIUM CHLORIDE 500 ML IV STA ×4 (08:49→18:12)
[2018-07-12] MEDS: SODIUM CHLORIDE 1,000 ML IV SCH (09:54)
[2018-07-12] MEDS ORDERED: COLLAGENASE CLOSTRIDIUM HIST. 30 GRAMS TUBE TP SCH (10:00)
[2018-07-12] MEDS ORDERED: FLUDROCORTISONE ACETATE 0.1 MG TABLET (FP) PO SCH (10:00)
[2018-07-12] MEDS: POLYETHYLENE GLYCOL 3350 119 GM BTL PO SCH ×2 (10:00→21:55)
[2018-07-12] MEDS: MUPIROCIN 2% TOPICAL OINTMENT FOR DECOLONIZATION NS SCH ×2 (10:30→21:54)
[2018-07-12 11:20] LABS: ACANTHOCYTES 1+; ANISOCYTOSIS 1+; MACROCYTOSIS 1+; PLATELET ESTIMATE NORMAL
[2018-07-12] MEDS ORDERED: MIDAZOLAM HCL 5 MG/1 ML Single Dose Vial ONE (11:27)
[2018-07-12] MEDS ORDERED: PROPOFOL 20 ML ONE (11:29)
[2018-07-12] MEDS ORDERED: PANTOPRAZOLE SODIUM 40 MG VIAL IVPUSH SCH (11:45)
--- NOTE | 2018-07-12 12:02 | PROC ---
Intubation - Intubation Reason for Intubation: Respiratory Failure Time of Intubation: 12:00 Intubation Method: orotracheal Blade used: Mac (4) Tube Size (cm): 8.0 Tube position @ lip (cm): 23 Tube position confirmed by: Direct visualization, CO2 detector, Chest x-ray Breath Sounds after Intubation: equal Post Intubation Xray: Yes
[2018-07-12] MEDS ORDERED: MUPIROCIN 2% TOPICAL OINTMENT 22 GM TUBE TP SCH (12:15)
[2018-07-12] MEDS ORDERED: MIDAZOLAM HCL 5 MG/1 ML Single Dose Vial IVPUSH ONE (12:29)
[2018-07-12] MEDS: PROPOFOL 1,000,000 MCG/100 ML VIAL IVPB SCH (12:30)
[2018-07-12] MEDS ORDERED: PROPOFOL 200 MG/20 ML VIAL IVPUSH ONE (12:30)
--- NOTE | 2018-07-12 13:27 | PN ---
Teaching Attending Note Name of Resident: Capri Erickson ATTENDING PHYSICIAN STATEMENT I saw and evaluated the patient. I reviewed the resident's note and discussed the case with the resident. I agree with the resident's findings and plan as documented. SUBJECTIVE: Pt seen and examined in the ICU. Lethargic, tachypneic desaturating on 50% FiO2. Decision made to intubate pt. Thick dried secretions in airway. Remains on levophed gtt. OBJECTIVE: Vital Signs Period Temp Pulse Resp BP Sys/Kuo Pulse Ox Last 24 Hr 96.7 F-98.8 F 60-66 12-60 90-126/38-74 95-100 Intake & Output 07/09/18 07/10/18 07/11/18 07/12/18 23:59 23:59 23:59 23:59 Intake Total 1850 3810 1549 Output Total 1120 1500 500 Balance 730 2310 1049 Weight 92.986 kg 76.771 kg 76.771 kg Gen: lethargic, tachypneic Heart: RRR Lung: scattered rhonchi Abd: soft, nontender Ext: no edema CBC, BMP 07/12/18 05:30 07/12/18 05:30 Active Medications Al Hydroxide/Mg Hydroxide (Mylanta Oral Suspension -) 30 ml PO Q6H PRN PRN Reason: INDIGESTION Albuterol/Ipratropium (Duoneb -) 1 amp NEB RQID [facility] Last Admin: 07/12/18 07:40 Dose: 1 amp Atorvastatin Calcium (Lipitor -) 40 mg PO [facility] Last Admin: 07/11/18 21:14 Dose: 40 mg Chlorhexidine Gluconate (Hibiclens For Decolonization -) 1 applic TP [facility] Last Admin: 07/11/18 21:13 Dose: 1 applic Clonazepam (Klonopin -) 0.5 mg PO BID [facility] Last Admin: 07/11/18 21:14 Dose: 0.5 mg Docusate Sodium (Colace -) 200 mg PO [facility] Last Admin: 07/11/18 21:13 Dose: 200 mg Ferrous Sulfate (Feosol -) 325 mg PO DAILY [facility] Last Admin: 07/11/18 15:23 Dose: Not Given Fludrocortisone Acetate (Florinef -) 0.05 mg PO DAILY [facility] Hydrocortisone Sodium Succinate (Solu-Cortef -) 50 mg IVPB Q6H-IV AYDIN Last Admin: 07/12/18 10:12 Dose: 50 mg Piperacillin Sod/Tazobactam (Sod 3.375 gm/ Dextrose) 50 mls @ 100 mls/hr IVPB Q8H-IV AYDIN; Protocol Last Admin: 07/12/18 10:11 Dose: 100 mls/hr Norepinephrine Bitartrate 8, (000 mcg/ Dextrose) 500 mls @ 18.75 mls/hr IV TITR [facility]; Protocol Last Titration: 07/12/18 10:30 Dose: 18 mcg/min, 67.5 mls/hr Sodium Chloride (Normal Saline -) 1,000 mls @ 50 mls/hr IV ASDIR AYDIN Last Admin: 07/12/18 09:54 Dose: 50 mls/hr Propofol (Diprivan -) 1,000,000 mcg in 100 mls @ 2.303 mls/hr IVPB TITR [facility]; Protocol Sodium Chloride (Normal Saline -) 500 mls @ 500 mls/hr IV ASDIR STA Stop: 07/12/18 13:21 Insulin Aspart (Novolog Vial Sliding Scale -) 1 vial SQ TIDAC [facility]; Protocol Last Admin: 07/12/18 06:04 Dose: 2 units Levothyroxine Sodium (Synthroid Injection -) 25 mcg IVPUSH DAILY [facility] Midazolam HCl (Versed -) 5 mg IVPUSH ONCE ONE Stop: 07/12/18 12:30 Mupirocin (Bactroban Ointment (For Decolonization) -) 1 applic NS BID [facility] Stop: 07/15/18 21:59 Last Admin: 07/11/18 21:12 Dose: 1 applic Mupirocin (Bactroban 2% Ointment -) 1 applic TP BID [facility] Last Admin: 07/12/18 12:45 Dose: 1 applic Pantoprazole Sodium (Protonix Iv) 40 mg IVPUSH DAILY [facility] Polyethylene Glycol (Miralax (For Daily Use) -) 17 gm PO BID [facility] Last Admin: 07/11/18 21:14 Dose: 17 grams Propofol (Diprivan -) 100 mcg IVPUSH ONCE ONE Stop: 07/12/18 12:31 Rivaroxaban (Xarelto -) 20 mg PO DAILY [facility] Last Admin: 07/11/18 15:24 Dose: Not Given Senna (Senna -) 2 tab PO HS [facility] Last Admin: 07/11/18 21:14 Dose: 2 tab ASSESSMENT AND PLAN: Acute Hypoxic and Hypercapneic Respiratory Failure Pneumonia Septic Shock Lactic Acidosis Acute Kidney Injury Hyperkalemia Elevated LFTs likely Ischemic Injury LV Systolic dysfunction Atrial Fibrillation CAD HTN DM Hyperlipidemia - continue antibiotics - f/u cultures - IVF to keep CVP 8-12 - titrate pressors to maintain MAP >65 - monitor urine output, creatinine - trend lactate - trend LFTs - place OGT, give kayexalate - monitor lytes - continue anticoagulation to keep INR 2-3 - continue volume assist control ventilation - DVT/GI prophylaxis - continue ICU monitoring critical care time spent in reviewing chart, evaluating patient and formulating plan 35 min
[2018-07-12] MEDS: RIVAROXABAN 20 MG TABLET PO SCH (13:34)
[2018-07-12] MEDS: LEVOTHYROXINE SODIUM 100 MCG VIAL IVPUSH SCH (13:35)
--- NOTE | 2018-07-12 13:37 | PN ---
Progress Note, Physician History of Present Illness: patient now intubated on pressors - Current Medication List Current Medications: Active Medications Al Hydroxide/Mg Hydroxide (Mylanta Oral Suspension -) 30 ml PO Q6H PRN PRN Reason: INDIGESTION Albuterol/Ipratropium (Duoneb -) 1 amp NEB RQID [facility] Last Admin: 07/12/18 07:40 Dose: 1 amp Atorvastatin Calcium (Lipitor -) 40 mg PO [facility] Last Admin: 07/11/18 21:14 Dose: 40 mg Chlorhexidine Gluconate (Hibiclens For Decolonization -) 1 applic TP [facility] Last Admin: 07/11/18 21:13 Dose: 1 applic Clonazepam (Klonopin -) 0.5 mg PO BID [facility] Last Admin: 07/11/18 21:14 Dose: 0.5 mg Docusate Sodium (Colace -) 200 mg PO [facility] Last Admin: 07/11/18 21:13 Dose: 200 mg Ferrous Sulfate (Feosol -) 325 mg PO DAILY [facility] Last Admin: 07/11/18 15:23 Dose: Not Given Fludrocortisone Acetate (Florinef -) 0.05 mg PO DAILY [facility] Hydrocortisone Sodium Succinate (Solu-Cortef -) 50 mg IVPB Q6H-IV [facility] Last Admin: 07/12/18 10:12 Dose: 50 mg Piperacillin Sod/Tazobactam (Sod 3.375 gm/ Dextrose) 50 mls @ 100 mls/hr IVPB Q8H-IV [facility]; Protocol Last Admin: 07/12/18 10:11 Dose: 100 mls/hr Norepinephrine Bitartrate 8, (000 mcg/ Dextrose) 500 mls @ 18.75 mls/hr IV TITR [facility]; Protocol Last Titration: 07/12/18 10:30 Dose: 18 mcg/min, 67.5 mls/hr Sodium Chloride (Normal Saline -) 1,000 mls @ 50 mls/hr IV ASDIR [facility] Last Admin: 07/12/18 09:54 Dose: 50 mls/hr Propofol (Diprivan -) 1,000,000 mcg in 100 mls @ 2.303 mls/hr IVPB TITR [facility]; Protocol Insulin Aspart (Novolog Vial Sliding Scale -) 1 vial SQ TIDAC [facility]; Protocol Last Admin: 07/12/18 06:04 Dose: 2 units Levothyroxine Sodium (Synthroid Injection -) 25 mcg IVPUSH DAILY [facility] Mupirocin (Bactroban Ointment (For Decolonization) -) 1 applic NS BID [facility] Stop: 07/15/18 21:59 Last Admin: 07/11/18 21:12 Dose: 1 applic Mupirocin (Bactroban 2% Ointment -) 1 applic TP BID [facility] Last Admin: 07/12/18 12:45 Dose: 1 applic Pantoprazole Sodium (Protonix Iv) 40 mg IVPUSH DAILY [facility] Polyethylene Glycol (Miralax (For Daily Use) -) 17 gm PO BID [facility] Last Admin: 07/11/18 21:14 Dose: 17 grams Rivaroxaban (Xarelto -) 20 mg PO DAILY [facility] Last Admin: 07/11/18 15:24 Dose: Not Given Senna (Senna -) 2 tab PO HS [facility] Last Admin: 07/11/18 21:14 Dose: 2 tab - Objective Vital Signs: Vital Signs Temperature 97.3 F L 07/12/18 12:00 Pulse Rate 62 07/12/18 12:00 Respiratory Rate 17 07/12/18 12:00 Blood Pressure 102/72 07/12/18 12:00 O2 Sat by Pulse Oximetry (%) 100 07/12/18 12:00 Constitutional: Yes: Other Cardiovascular: Yes: S1, S2 Respiratory: Yes: Intubated, Mechanically Ventilated Gastrointestinal: Yes: Normal Bowel Sounds, Soft Musculoskeletal: Yes: Other Extremities: Yes: Erythema (b/l legs) Neurological: Yes: Other Labs: CBC, BMP 07/12/18 05:30 INR, PTT INR 2.33 (0.83-1.09) H 07/12/18 05:30 Fibrinogen 423.0 mg/dL (238-498) 07/12/18 05:30 Assessment/Plan septic shock Systolic / Diastolic CHF COPD HTN HLD CAD S/P PCI x 7 PPM Atrial Fibrillation DM Chronic venous insufficiency BPH s/p TURP CKD Anemia plan continue abx iv fluids close watch as per icu monitor neuro status await for all test rest as per icu resp support cc 40 min
[2018-07-12 13:51] LABS: ANION GAP 10 MMOL/L (8-16); BLOOD UREA NITROGEN 60 mg/dL (7-18); CALCIUM 7.8 mg/dL (8.5-10.1); CHLORIDE 110 mmol/L (98-107); CO2 21 mmol/L (21-32); CREATININE 1.4 mg/dL (0.55-1.3); GLUCOSE,RANDOM 235 mg/dL (74-106); POTASSIUM 4.7 mmol/L (3.5-5.1); SODIUM 141 mmol/L (136-145)
[2018-07-12] MEDS: clonazePAM 0.5 MG TABLET PO SCH ×2 (13:52→21:55)
[2018-07-12] MEDS: FERROUS SO4 325 MG TABLET (FP) PO SCH (13:53)
--- NOTE | 2018-07-12 14:53 | ECHO ---
Name: DAIN THORNTON Exam:Adult Echocardiogram Study Date: 07/12/2018 02:04 PM Age: 83 yrs Reason For Study: CHF Height: 70 in Weight: 169 lb BSA: 1.9 m2 MMode/2D Measurements & Calculations IVSd: 0.77 cm LA dimension: 3.9 cm LVIDd: 4.6 cm LVIDs: 3.5 cm LVPWd: 0.72 cm EDV(Teich): 95.7 ml RV S Eldon: 5.8 cm/sec ESV(Teich): 49.5 ml Doppler Measurements & Calculations MV E max eldon: 107.6 cm/sec MR max eldon: 242.4 cm/sec MV A max eldon: 56.8 cm/sec MR max P.5 mmHg MV E/A: 1.9 MV dec time: 0.15 sec TR max eldon: 220.1 cm/sec Med Peak E' Eldon: 6.7 cm/sec TR max P.4 mmHg Med E/e': 16.0 Lat Peak E' Eldon: 9.5 cm/sec Lat E/e': 11.4 Procedure The study was technically difficult with many images being suboptimal in quality. The study was techn ically limited with all images being suboptimal in quality. Left Ventricle The left ventricle is not well visualized. The left ventricle is grossly normal size. Left ventricula r systolic function is moderately reduced. Regional wall motion abnormalities cannot be excluded due to limited visualization. Septal motion is consistent with conduction abnormality. Right Ventricle The right ventricle is not well visualized. There is a pacemaker lead in the right ventricle. Atria The left atrium is mildly dilated. The right atrium is mildly dilated. Mitral Valve There is mild mitral valve thickening. The mitral valve is not well visualized. There is no mitral va lve stenosis. There is mild mitral regurgitation. Tricuspid Valve The tricuspid valve is not well visualized. There is no tricuspid stenosis. There is mild to moderate tricuspid regurgitation. Right ventricular systolic pressure is normal. Aortic Valve The aortic valve is not well visualized. No hemodynamically significant valvular aortic stenosis. No aortic regurgitation is present. Pulmonic Valve The pulmonic valve is not well visualized. Great Vessels The aortic root is not well visualized. Pericardium/Pleura There is no pericardial effusion. Interpretation Summary The study was technically difficult with many images being suboptimal in quality. The study was technically limited with all images being suboptimal in quality. The left ventricle is not well visualized. The left ventricle is grossly normal size. There is a pacemaker lead in the right ventricle. The left atrium is mildly dilated. The right atrium is mildly dilated. There is mild to moderate tricuspid regurgitation. Right ventricular systolic pressure is normal. There is mild mitral regurgitation. Left ventricular systolic function is moderately reduced. Regional wall motion abnormalities cannot be excluded due to limited visualization. Septal motion is consistent with conduction abnormality. MD Mayur Vargas 07/12/2018 02:52 PM
--- NOTE | 2018-07-12 15:13 | PN ---
Physical Exam: SUBJECTIVE: Patient seen and examined at bedside. Patient remained lethargic, arousable to pain this morning. Became tachypneic and desaturated to 50%. Patient was intubated. Sedation started. IVF bolus given. Titrating down Levophed drip. OG tube feeds to be started. OBJECTIVE: Vital Signs Period Temp Pulse Resp BP Sys/Kuo Pulse Ox Last 24 Hr 96.7 F-98.8 F 60-66 12-60 90-126/38-74 95-100 GENERAL: The patient is intubated and sedated. HEAD: Normal with no signs of trauma. NECK: Trachea midline, full range of motion, supple. LUNGS: +scattered rhonchi bilaterally. HEART: Regular rate and rhythm, S1, S2 without murmur, rub or gallop. ABDOMEN: Soft, nontender, nondistended, normoactive bowel sounds. UPPER EXTREMITIES: 2+ pulses, warm, well-perfused, no edema. LOWER EXTREMITIES: +erythema and warmth bilaterally with minimal serosanguinous weeping lesions. SKIN: Warm, dry, normal turgor, +stage 1 sacral ulcer Laboratory Results - last 24 hr 07/11/18 07/11/18 07/11/18 05:30 15:59 18:45 WBC RBC Hgb Hct MCV MCH MCHC RDW Plt Count MPV Absolute Neuts (auto) Neutrophils % Neutrophils % (Manual) Band Neutrophils % Lymphocytes % Lymphocytes % (Manual) Monocytes % Monocytes % (Manual) Eosinophils % Eosinophils % (Manual) Basophils % Basophils % (Manual) Myelocytes % (Man) Promyelocytes % (Man) Blast Cells % (Manual) Nucleated RBC % Metamyelocytes Hypochromia Platelet Estimate Polychromasia Poikilocytosis Anisocytosis Microcytosis Macrocytosis Acanthocytes (Spur) PT with INR INR PTT (Actin FS) Fibrinogen Puncture Site ABG pH ABG pCO2 at Pt Temp ABG pO2 at Pt Temp ABG HCO3 ABG O2 Sat (Measured) ABG O2 Content ABG Base Excess Jaret Test Oxygen Flow Rate Sodium Potassium 6.2 H* Chloride Carbon Dioxide Anion Gap BUN Creatinine Creat Clearance w eGFR POC Glucometer [phone] Random Glucose Lactic Acid Calcium Phosphorus Magnesium Total Bilirubin AST ALT Alkaline Phosphatase Total Protein Albumin TSH Free T3 1.1 L 07/12/18 07/12/18 07/12/18 00:25 05:26 05:30 WBC 23.0 H RBC 2.15 L Hgb 7.2 L Hct 22.5 L MCV 104.5 H MCH 33.5 MCHC 32.0 RDW 18.4 H Plt Count 261 MPV 9.4 Absolute Neuts (auto) 21.7 H Neutrophils % 94.1 H Neutrophils % (Manual) 92.0 H D Band Neutrophils % 1.0 Lymphocytes % 1.8 L Lymphocytes % (Manual) 4.0 L Monocytes % 4.0 Monocytes % (Manual) 3 L Eosinophils % 0.0 D Eosinophils % (Manual) 0.0 Basophils % 0.1 Basophils % (Manual) 0.0 Myelocytes % (Man) 0 Promyelocytes % (Man) 0 Blast Cells % (Manual) 0 Nucleated RBC % 0 Metamyelocytes 0 Hypochromia 0 Platelet Estimate Normal Polychromasia 0 Poikilocytosis 3+ Anisocytosis 1+ Microcytosis 0 Macrocytosis 1+ Acanthocytes (Spur) 1+ PT with INR INR PTT (Actin FS) Fibrinogen Puncture Site ABG pH ABG pCO2 at Pt Temp ABG pO2 at Pt Temp ABG HCO3 ABG O2 Sat (Measured) ABG O2 Content ABG Base Excess Jaret Test Oxygen Flow Rate Sodium Potassium 5.7 H Chloride Carbon Dioxide Anion Gap BUN Creatinine Creat Clearance w eGFR POC Glucometer [phone] Random Glucose Lactic Acid Calcium Phosphorus Magnesium Total Bilirubin AST ALT Alkaline Phosphatase Total Protein Albumin TSH Free T3 07/12/18 07/12/18 07/12/18 05:30 05:30 05:30 WBC RBC Hgb Hct MCV MCH MCHC RDW Plt Count MPV Absolute Neuts (auto) Neutrophils % Neutrophils % (Manual) Band Neutrophils % Lymphocytes % Lymphocytes % (Manual) Monocytes % Monocytes % (Manual) Eosinophils % Eosinophils % (Manual) Basophils % Basophils % (Manual) Myelocytes % (Man) Promyelocytes % (Man) Blast Cells % (Manual) Nucleated RBC % Metamyelocytes Hypochromia Platelet Estimate Polychromasia Poikilocytosis Anisocytosis Microcytosis Macrocytosis Acanthocytes (Spur) PT with INR 27.70 H INR 2.33 H PTT (Actin FS) 36.8 H Fibrinogen 423.0 Puncture Site ABG pH ABG pCO2 at Pt Temp ABG pO2 at Pt Temp ABG HCO3 ABG O2 Sat (Measured) ABG O2 Content ABG Base Excess Jaret Test Oxygen Flow Rate Sodium 140 Potassium 5.6 H Chloride 109 H Carbon Dioxide 18 L Anion Gap 13 BUN 60 H Creatinine 1.5 H Creat Clearance w eGFR 44.69 POC Glucometer Random Glucose 229 H Lactic Acid Calcium 8.1 L Phosphorus 5.5 H Magnesium 2.9 H Total Bilirubin 0.6 AST 456 H ALT 238 H Alkaline Phosphatase 139 H Total Protein 5.5 L Albumin 2.3 L TSH 11.50 H D Free T3 07/12/18 07/12/18 07/12/18 06:00 08:14 11:36 WBC RBC Hgb Hct MCV MCH MCHC RDW Plt Count MPV Absolute Neuts (auto) Neutrophils % Neutrophils % (Manual) Band Neutrophils % Lymphocytes % Lymphocytes % (Manual) Monocytes % Monocytes % (Manual) Eosinophils % Eosinophils % (Manual) Basophils % Basophils % (Manual) Myelocytes % (Man) Promyelocytes % (Man) Blast Cells % (Manual) Nucleated RBC % Metamyelocytes Hypochromia Platelet Estimate Polychromasia Poikilocytosis Anisocytosis Microcytosis Macrocytosis Acanthocytes (Spur) PT with INR INR PTT (Actin FS) Fibrinogen Puncture Site Right radial ABG pH 7.38 ABG pCO2 at Pt Temp 28.1 L D ABG pO2 at Pt Temp 68.4 D ABG HCO3 16.4 L ABG O2 Sat (Measured) 91.8 ABG O2 Content 11.4 L ABG Base Excess -7.3 L Jaret Test No Result Required. Oxygen Flow Rate Yes Sodium Potassium Chloride Carbon Dioxide Anion Gap BUN Creatinine Creat Clearance w eGFR POC Glucometer [phone] Random Glucose Lactic Acid 2.8 H* Calcium Phosphorus Magnesium Total Bilirubin AST ALT Alkaline Phosphatase Total Protein Albumin TSH Free T3 07/12/18 07/12/18 12:00 12:00 WBC RBC Hgb Hct MCV MCH MCHC RDW Plt Count MPV Absolute Neuts (auto) Neutrophils % Neutrophils % (Manual) Band Neutrophils % Lymphocytes % Lymphocytes % (Manual) Monocytes % Monocytes % (Manual) Eosinophils % Eosinophils % (Manual) Basophils % Basophils % (Manual) Myelocytes % (Man) Promyelocytes % (Man) Blast Cells % (Manual) Nucleated RBC % Metamyelocytes Hypochromia Platelet Estimate Polychromasia Poikilocytosis Anisocytosis Microcytosis Macrocytosis Acanthocytes (Spur) PT with INR INR PTT (Actin FS) Fibrinogen Puncture Site ABG pH ABG pCO2 at Pt Temp ABG pO2 at Pt Temp ABG HCO3 ABG O2 Sat (Measured) ABG O2 Content ABG Base Excess Jaret Test Oxygen Flow Rate Sodium 141 Potassium 4.7 Chloride 110 H Carbon Dioxide 21 Anion Gap 10 BUN 60 H Creatinine 1.4 H Creat Clearance w eGFR 48.40 POC Glucometer Random Glucose 235 H Lactic Acid 1.5 Calcium 7.8 L Phosphorus Magnesium Total Bilirubin AST ALT Alkaline Phosphatase Total Protein Albumin TSH Free T3 Active Medications Generic Name Dose Route Start Last Admin Trade Name Freq PRN Reason Stop Dose Admin Al Hydroxide/Mg Hydroxide 30 ml 07/10/18 19:52 Mylanta Oral Suspension - PO Q6H PRN INDIGESTION Albuterol/Ipratropium 1 amp 07/10/18 20:15 07/12/18 07:40 Duoneb - NEB 1 amp RQID AYDIN Administration Atorvastatin Calcium 40 mg 07/10/18 22:00 07/11/18 21:14 Lipitor - PO 40 mg HS AYDIN Administration Chlorhexidine Gluconate 1 applic 07/10/18 22:00 07/11/18 21:13 Hibiclens For Decolonization - TP 1 applic HS AYDIN Administration Clonazepam 0.5 mg 07/10/18 22:00 07/12/18 13:52 Klonopin - PO Not Given BID AYDIN Docusate Sodium 200 mg 07/10/18 22:00 07/11/18 21:13 Colace - PO 200 mg HS AYDIN Administration Ferrous Sulfate 325 mg 07/11/18 10:00 07/12/18 13:53 Feosol - PO 325 mg DAILY AYDIN Administration Fludrocortisone Acetate 0.05 mg 07/12/18 10:00 Florinef - PO DAILY AYDIN Hydrocortisone Sodium Succinate 50 mg 07/11/18 15:00 07/12/18 10:12 Solu-Cortef - IVPB 50 mg Q6H-IV AYDIN Administration Piperacillin Sod/Tazobactam 50 mls @ 100 mls/hr 07/11/18 02:00 07/12/18 10:11 Sod 3.375 gm/ Dextrose IVPB 100 mls/hr Q8H-IV AYDIN Administration Protocol Norepinephrine Bitartrate 8, 500 mls @ 18.75 mls/hr 07/11/18 05:45 07/12/18 10:30 000 mcg/ Dextrose IV 18 mcg/min TITR AYDIN 67.5 mls/hr Titration Protocol 5 MCG/MIN Sodium Chloride 1,000 mls @ 50 mls/hr 07/11/18 06:26 07/12/18 09:54 Normal Saline - IV 50 mls/hr ASDIR AYDIN Administration Propofol 1,000,000 mcg in 100 mls @ 2.303 mls/hr 07/12/18 12:15 Diprivan - IVPB TITR AYDIN Protocol 5 MCG/KG/MIN Vancomycin HCl 1,250 mg/ 250 mls @ 166.667 mls/hr 07/12/18 15:00 Dextrose IVPB Q24H AYDIN Protocol Insulin Aspart 1 vial 07/10/18 18:15 07/12/18 13:27 Novolog Vial Sliding Scale - SQ 2 units TIDAC AYDIN Administration Protocol Levothyroxine Sodium 25 mcg 07/12/18 10:00 07/12/18 13:35 Synthroid Injection - IVPUSH 25 mcg DAILY AYDIN Administration Mupirocin 1 applic 07/10/18 22:00 07/11/18 21:12 Bactroban Ointment (For Decolonization) - NS 07/15/18 21:59 1 applic BID AYDIN Administration Mupirocin 1 applic 07/12/18 12:15 07/12/18 12:45 Bactroban 2% Ointment - TP 1 applic BID AYDIN Administration Pantoprazole Sodium 40 mg 07/12/18 11:45 07/12/18 14:04 Protonix Iv IVPUSH 40 mg DAILY AYDIN Administration Polyethylene Glycol 17 gm 07/10/18 22:00 07/11/18 21:14 Miralax (For Daily Use) - PO 17 grams BID AYDIN Administration Rivaroxaban 20 mg 07/11/18 10:00 07/12/18 13:34 Xarelto - PO Not Given DAILY AYDIN Senna 2 tab 07/10/18 22:00 07/11/18 21:14 Senna - PO 2 tab HS AYDIN Administration ASSESSMENT/PLAN: Patient is an 83 year old male with significant past medical history of sys/ diastolic CHF; COPD; HTN; HLD; CAD (s/p stenting x7 and pacemaker); Atrial Fibrillation; DM; chronic venous insufficiency; BPH s/p TURP; CKD; anemia for B/ L leg pain and abnormal gait was sent from [facility] for evaluation of B/L lower extremity pain. #Infectious Disease 1)Septic shock likely secondary to cellulitis of B/L Lower extremity and sacral ulcer -On arrival, BP: 88/75mmHg, Temp 88.6 with normal pulse and saturating 100 % in RA -In the ED, IV NS boluses given with minimal response on BP. -Central line placed, patient started on vasopressors. -Titrating down Levophed to 14 -Titrate pressors to maintain MAP >65 -CVP monitoring q12h. -IV Solu-cortef 50mg q6h -Fludrocortisone 0.05mg OGT daily -ID (Dr. Thomas) consulted. Recommendations appreciated. -Continue Vancomycin 1250mg daily Day 2 and Zosyn 3.375 q8h Day 3 -IV NS @50ml/hr -monitor neuro status -Wound cultures - Presumptive Pseudomonas, Lactose fermenting GNB, Presumptive MRSA, Group D Strep or Enterococcus -Contact isolation precautions -Dr. Estrada consulted. Recommendations appreciated. -Air mattress recommended. -Ensure off-loading to all bony areas with Allevyn/Optifoam -Clean open wounds with normal saline and apply Silvadene -Continue antibiotics. -Podiatry(Dr. Greene) consulted for avulsed L great toe nail. 2)Lactic acidosis: likely 2/2 sepsis -Lactic acid 2.8 -IV fluid bolus given. On standing IV NS @50 -Repeat lactic acid 1.5 #Pulmonology 1)Acute Hypoxic and Hypercapneic respiratory failure: Likely 2/2 Pneumonia and Sepsis -Intubated. On volume AC: 12/440/50/5 -Sedated on propofol drip. -On IV Vanc/Zosyn. -OG tube placed. 2)COPD -Duoneb QID 3)Obstructive Sleep Apnea -intubated #Endocrinology 1)Hypothyroidism -TSH elevated 14.8 --> 13.2 -free T4 0.8 -Hypotension, hypothermia, hypoglycemia likely 2/2 sepsis. -Endocrinology (Dr. Duron) consulted. Recommendations appreciated. -IV synthroid 25mcg daily until able to take PO -IV fluid for rehydration -IV antibiotic -IV steroid adrenal support 2)Diabetes Mellitus -A1c - 6.8 -Insulin sliding scale implemented -BGM ACHS -will monitor hypoglycemia #Cardiovascular 1)Systolic/Diastolic CHF: not on exacerbation -BNP 1180. -Echocardiogram done. -Hold Lasix for now -Gentle hydration on IV NS @50ml/hr 2)Prolonged QTc: 614 -Avoid medications causing prolonged QTc. -EKG this am: QTc 535 3)CAD (s/p stenting x7 and pacemaker) -Continue [id number] PO HS -On Xarelto 20mg daily 4)Hypertension -hold home anti-hypertensive medications -On Levophed 14 mcg/min -Titrate pressors to maintain MAP >65 -on IVF 5)Hyperlipidemia -Lipitor 40mg PO HS 6)Atrial Fibrillation: rate controlled -On Xarelto 20mg daily #Gastroenterology 1)Transaminitis likely 2/2 sepsis -AST 456 ALT 238 Alkaline phosphatase 149 -Liver ultrasound done- Right pleural effusion and trace ascites. Thick walled gallbladder with biliary sludge. -Hepatitis panel. -will continue to monitor #Nephrology 1)CKD -elevated BUN likely 2/2 to dehydration -IVF given 2)Hyperkalemia -Ca gluconate, Insulin and D50 IVPB given -will continue to monitor #Hematology 1)Macrocytic anemia -H/H 7.2/22.5 -monitor CBC -will transfuse with Hgb <7 #FEN -IV NS @50ml/hr -HyperK, Ca gluconate, D50 and insulin given -Routine bmp monitoring -OG tube feeding. #Prophylaxis 1)DVT - on Xarelto 20mg daily 2)GI - Protonix 40mg IV daily. #Disposition -full code -ICU for closer monitoring
--- NOTE | 2018-07-12 15:30 | PN ---
Physical Exam: SUBJECTIVE: Patient seen and examined this morning in the ICU. Used Bipap overnight. Lethargic and unable to answer questions. I was informed that after my interview, patient became tachypneic, desaturated to 50% and was intubated by ICU team. OG tube was placed and feeds started. OBJECTIVE: Vital Signs Period Temp Pulse Resp BP Sys/Kuo Pulse Ox Last 24 Hr 96.7 F-98.8 F 60-66 12-60 90-126/38-74 95-100 GENERAL: Lethargic, Restless and Moaning, Hairless throughout except for Eyebrows HEAD: NCAT EYES: Pinpoint pupils NECK: B/L JVD, Right Sided IJ Placed LUNGS: Bibasilar Rhonchi, on 50% Ventimask HEART: Regular rate and rhythm, normal S1 and S2, LLSB Murmur ABDOMEN: Soft, nontender, not distended, normoactive bowel sounds, no guarding : Arroyo catheter present draining Dark red urine BACK: Stage 2 ulcer superior to the gluteal fold without active drainage or surrounding erythema EXTREMITIES: 2+ pulses, 1+ L>R lower extremity pitting edema. Multiple, Lower extremity wounds without active drainage, Erythema and warmth improved. Laboratory Results - last 24 hr 07/12/18 07/12/18 07/12/18 00:25 05:26 05:30 WBC 23.0 H RBC 2.15 L Hgb 7.2 L Hct 22.5 L MCV 104.5 H MCH 33.5 MCHC 32.0 RDW 18.4 H Plt Count 261 MPV 9.4 Absolute Neuts (auto) 21.7 H Neutrophils % 94.1 H Neutrophils % (Manual) 92.0 H D Band Neutrophils % 1.0 Lymphocytes % 1.8 L Lymphocytes % (Manual) 4.0 L Monocytes % 4.0 Monocytes % (Manual) 3 L Eosinophils % 0.0 D Eosinophils % (Manual) 0.0 Basophils % 0.1 Basophils % (Manual) 0.0 Myelocytes % (Man) 0 Promyelocytes % (Man) 0 Blast Cells % (Manual) 0 Nucleated RBC % 0 Metamyelocytes 0 Hypochromia 0 Platelet Estimate Normal Polychromasia 0 Poikilocytosis 3+ Anisocytosis 1+ Microcytosis 0 Macrocytosis 1+ Acanthocytes (Spur) 1+ PT with INR INR PTT (Actin FS) Fibrinogen Puncture Site ABG pH ABG pCO2 at Pt Temp ABG pO2 at Pt Temp ABG HCO3 ABG O2 Sat (Measured) ABG O2 Content ABG Base Excess Jaret Test Oxygen Flow Rate Sodium Potassium 5.7 H Chloride Carbon Dioxide Anion Gap BUN Creatinine Creat Clearance w eGFR POC Glucometer [id number] Random Glucose Lactic Acid Calcium Phosphorus Magnesium Total Bilirubin AST ALT Alkaline Phosphatase Total Protein Albumin TSH Free T3 07/12/18 07/12/18 07/12/18 05:30 05:30 05:30 WBC RBC Hgb Hct MCV MCH MCHC RDW Plt Count MPV Absolute Neuts (auto) Neutrophils % Neutrophils % (Manual) Band Neutrophils % Lymphocytes % Lymphocytes % (Manual) Monocytes % Monocytes % (Manual) Eosinophils % Eosinophils % (Manual) Basophils % Basophils % (Manual) Myelocytes % (Man) Promyelocytes % (Man) Blast Cells % (Manual) Nucleated RBC % Metamyelocytes Hypochromia Platelet Estimate Polychromasia Poikilocytosis Anisocytosis Microcytosis Macrocytosis Acanthocytes (Spur) PT with INR 27.70 H INR 2.33 H PTT (Actin FS) 36.8 H Fibrinogen 423.0 Puncture Site ABG pH ABG pCO2 at Pt Temp ABG pO2 at Pt Temp ABG HCO3 ABG O2 Sat (Measured) ABG O2 Content ABG Base Excess Jaret Test Oxygen Flow Rate Sodium 140 Potassium 5.6 H Chloride 109 H Carbon Dioxide 18 L Anion Gap 13 BUN 60 H Creatinine 1.5 H Creat Clearance w eGFR 44.69 POC Glucometer Random Glucose 229 H Lactic Acid Calcium 8.1 L Phosphorus 5.5 H Magnesium 2.9 H Total Bilirubin 0.6 AST 456 H ALT 238 H Alkaline Phosphatase 139 H Total Protein 5.5 L Albumin 2.3 L TSH 11.50 H D Free T3 07/12/18 07/12/18 07/12/18 06:00 08:14 11:36 WBC RBC Hgb Hct MCV MCH MCHC RDW Plt Count MPV Absolute Neuts (auto) Neutrophils % Neutrophils % (Manual) Band Neutrophils % Lymphocytes % Lymphocytes % (Manual) Monocytes % Monocytes % (Manual) Eosinophils % Eosinophils % (Manual) Basophils % Basophils % (Manual) Myelocytes % (Man) Promyelocytes % (Man) Blast Cells % (Manual) Nucleated RBC % Metamyelocytes Hypochromia Platelet Estimate Polychromasia Poikilocytosis Anisocytosis Microcytosis Macrocytosis Acanthocytes (Spur) PT with INR INR PTT (Actin FS) Fibrinogen Puncture Site Right radial ABG pH 7.38 ABG pCO2 at Pt Temp 28.1 L D ABG pO2 at Pt Temp 68.4 D ABG HCO3 16.4 L ABG O2 Sat (Measured) 91.8 ABG O2 Content 11.4 L ABG Base Excess -7.3 L Jaret Test No Result Required. Oxygen Flow Rate Yes Sodium Potassium Chloride Carbon Dioxide Anion Gap BUN Creatinine Creat Clearance w eGFR POC Glucometer [phone] Random Glucose Lactic Acid 2.8 H* Calcium Phosphorus Magnesium Total Bilirubin AST ALT Alkaline Phosphatase Total Protein Albumin TSH Free T3 07/12/18 07/12/18 12:00 12:00 WBC RBC Hgb Hct MCV MCH MCHC RDW Plt Count MPV Absolute Neuts (auto) Neutrophils % Neutrophils % (Manual) Band Neutrophils % Lymphocytes % Lymphocytes % (Manual) Monocytes % Monocytes % (Manual) Eosinophils % Eosinophils % (Manual) Basophils % Basophils % (Manual) Myelocytes % (Man) Promyelocytes % (Man) Blast Cells % (Manual) Nucleated RBC % Metamyelocytes Hypochromia Platelet Estimate Polychromasia Poikilocytosis Anisocytosis Microcytosis Macrocytosis Acanthocytes (Spur) PT with INR INR PTT (Actin FS) Fibrinogen Puncture Site ABG pH ABG pCO2 at Pt Temp ABG pO2 at Pt Temp ABG HCO3 ABG O2 Sat (Measured) ABG O2 Content ABG Base Excess Jaret Test Oxygen Flow Rate Sodium 141 Potassium 4.7 Chloride 110 H Carbon Dioxide 21 Anion Gap 10 BUN 60 H Creatinine 1.4 H Creat Clearance w eGFR 48.40 POC Glucometer Random Glucose 235 H Lactic Acid 1.5 Calcium 7.8 L Phosphorus Magnesium Total Bilirubin AST ALT Alkaline Phosphatase Total Protein Albumin TSH Free T3 Microbiology 07/10/18 11:15 Blood - Peripheral Venous Blood Culture - Preliminary NO GROWTH OBTAINED AFTER 48 HOURS, INCUBATION TO CONTINUE FOR 3 DAYS. 07/10/18 11:00 Blood - Peripheral Venous Blood Culture - Preliminary NO GROWTH OBTAINED AFTER 48 HOURS, INCUBATION TO CONTINUE FOR 3 DAYS. 07/11/18 03:30 Leg - Right Lower Gram Stain - Final 07/11/18 03:30 Leg - Right Lower Wound Culture - Preliminary Presumptive Ps Aeruginosa Lactose Fermenting Neg Bacilli Presumptive Mrsa (Pbp2a Pos) Group D Strep Or Entero Coccus 07/10/18 12:20 Urine - Urine Clean Catch Urine Culture - Preliminary Staphylococcus Coagulase Neg Active Medications Al Hydroxide/Mg Hydroxide (Mylanta Oral Suspension -) 30 ml PO Q6H PRN PRN Reason: INDIGESTION Albuterol/Ipratropium (Duoneb -) 1 amp NEB RQID [facility] [place] Last Admin: 07/12/18 07:40 Dose: 1 amp Atorvastatin Calcium (Lipitor -) 40 mg PO HS [facility] [place] Last Admin: 07/11/18 21:14 Dose: 40 mg Chlorhexidine Gluconate (Hibiclens For Decolonization -) 1 applic TP HS [facility] [place] Last Admin: 07/11/18 21:13 Dose: 1 applic Clonazepam (Klonopin -) 0.5 mg PO BID [facility] [place] Last Admin: 07/12/18 13:52 Dose: Not Given Docusate Sodium (Colace -) 200 mg PO HS [facility] [place] Last Admin: 07/11/18 21:13 Dose: 200 mg Ferrous Sulfate (Feosol -) 325 mg PO DAILY [facility] [place] Last Admin: 07/12/18 13:53 Dose: 325 mg Fludrocortisone Acetate (Florinef -) 0.05 mg PO DAILY [facility] [place] Hydrocortisone Sodium Succinate (Solu-Cortef -) 50 mg IVPB Q6H-IV [facility] Last Admin: 07/12/18 10:12 Dose: 50 mg Piperacillin Sod/Tazobactam (Sod 3.375 gm/ Dextrose) 50 mls @ 100 mls/hr IVPB Q8H-IV [facility]; Protocol Last Admin: 07/12/18 10:11 Dose: 100 mls/hr Norepinephrine Bitartrate 8, (000 mcg/ Dextrose) 500 mls @ 18.75 mls/hr IV TITR [facility] [place]; Protocol Last Titration: 07/12/18 10:30 Dose: 18 mcg/min, 67.5 mls/hr Sodium Chloride (Normal Saline -) 1,000 mls @ 50 mls/hr IV ASDIR [facility] [place] Last Admin: 07/12/18 09:54 Dose: 50 mls/hr Propofol (Diprivan -) 1,000,000 mcg in 100 mls @ 2.303 mls/hr IVPB TITR [facility] [place]; Protocol Vancomycin HCl 1,250 mg/ (Dextrose) 250 mls @ 166.667 mls/hr IVPB Q24H [facility]; Protocol Insulin Aspart (Novolog Vial Sliding Scale -) 1 vial SQ TIDAC [facility]; Protocol Last Admin: 07/12/18 13:27 Dose: 2 units Levothyroxine Sodium (Synthroid Injection -) 25 mcg IVPUSH DAILY [facility] [place] Last Admin: 07/12/18 13:35 Dose: 25 mcg Mupirocin (Bactroban Ointment (For Decolonization) -) 1 applic NS BID [facility] Stop: 07/15/18 21:59 Last Admin: 07/11/18 21:12 Dose: 1 applic Mupirocin (Bactroban 2% Ointment -) 1 applic TP BID [facility] [place] Last Admin: 07/12/18 12:45 Dose: 1 applic Pantoprazole Sodium (Protonix Iv) 40 mg IVPUSH DAILY [facility] [place] Last Admin: 07/12/18 14:04 Dose: 40 mg Polyethylene Glycol (Miralax (For Daily Use) -) 17 gm PO BID [facility] [place] Last Admin: 07/11/18 21:14 Dose: 17 grams Rivaroxaban (Xarelto -) 20 mg PO DAILY [facility] [place] Last Admin: 07/12/18 13:34 Dose: Not Given Senna (Senna -) 2 tab PO HS [facility] [place] Last Admin: 07/11/18 21:14 Dose: 2 tab IMAGING: -CXR (07/10): The prior study of 06/09/2018, again is a scoliosis with convexity to the right, weak inspiration, multi lead pacemaker, distended bowel in the upper abdomen, previous right shoulder surgery and there are increased left hemithorax markings compatible with some atelectasis and/or infiltrate. Follow- up recommended. -CXR (07/11): Since the prior study of 07/10/2018, there appears to be major consolidation in the left hemithorax with some sparing at the left base. There is a prominent mediastinum with pacemaker and distended bowel in the abdomen. The right lung is clear. There is a scoliosis with convexity to the right. There are degenerative spine and shoulder changes. There are left shoulder calcifications. A follow-up study is suggested with deep inspiration to clarify the left hemithorax changes. The sparing of the left base is unusual and one must make sure this is not a subtle pneumothorax. Again follow-up imaging is suggested -CXR (07/11): Since the prior study of 07/11/2018 at 0704 hours, the left hemithorax is slightly better aerated with still some infiltrate/atelectasis and no sign of a gross pneumothorax. The remainder the study is unchanged -CXR (07/11): Since 1003 hours, new right jugular line has been inserted and the tip is in the right atrium. The remainder the study is unchanged. There is no sign of a pneumothorax. -CXR (07/12): A single AP view of the chest reveals motion artifact, weak inspiration, chin artifact, right jugular line with tip in junction of SVC and right atrium, left-sided double lead pacemaker, sclerotic knob, previous right humeral fracture stabilization with hardware and some congestive changes with atelectasis or infiltrate on the left. There is bowel in the right upper quadrant. Since the prior exam of 07/11/2018, there is no significant change. -CXR (07/12): An AP chest reveals an endotracheal tube, right jugular line and pacemaker. There is a large heart, sclerotic unfolded aorta and congestive changes with bilateral effusions with left base infiltrate or atelectasis. The pulmonary and pleural changes have increased and the endotracheal tube is new since 07/12/2018. An OG tube is not easily delineated in this study. -Liver US: Right pleural effusion and trace ascites. Thick walled gallbladder with biliary sludge. -DUPLEX US: No evidence of deep venous thrombosis. -CT Head without contrast: No evidence of acute intracranial pathology. -EKG: Ventricular-paced rhythm, VR 60, QTc 614 -ECHO: Technically limited, LV Systolic function is moderately reduced, LV Is not well visualized, RA and LA mildly dilated, Mild to Mod TR, Mild MR, RV systolic pressure normal, Septal motion is consistent with conduction abnormality, Regional wall motion abnormalities cannot be excluded ASSESSMENT/PLAN: 83 y/o M with PMHx of CHF, COPD, HTN, HLD, CAD (s/p stenting x7 and pacemaker), Atrial Fibrillation, DM, chronic venous insufficiency, BPH was BIBEMS from [facility] for AMS and was admitted to the ICU for severe sepsis due to Cellulitus. #Septic Shock -Likely due B/L lower extremity cellulitis, Wound cultures noted above -Today with Lactic acidosis; Trend -Sedation via Propofol drip -Bipap D/C'ed, Now Intubated (07/12) -Central Line placed (07/11), Continue on Levophed (20 mcg/min) and titrate down -Maintain MAP >65, Titrate pressers as needed, Can starts Vasopressin drip -No longer hypothermic; Sander Gipson/Ted'ed -Continue NS @ 50 mls/hr -Continue Zosyn (Started on 07/10) -Started on Vanco (07/12) -ID (Dr. Thomas) consulted -Blood, urine culture noted above -Hold home Anti-HTN meds -Continue Hydrocortisone, Fludrocortisone -Chest PT -OG Tube placed, start tube feeds (07/12) -Contact isolation precautions -Vascular surgery (Dr. Estrada) consulted, Appreciate recs -Podiatry (Dr. Greene) consulted #Transaminitis -LFTs trending up; Continue to trend -Liver US noted above #Hyperkalemia -Acidosis resolved -Received Calcium gluconate, D50, Insulin, Repeat EKG -OG Tube placed (07/12); Kayexelate given -Continue to monitor #Elevated TSH -Likely due to Severe Sepsis; Consider Euthyroid Sick Syndrome, Less likely Myxedema coma -Endocrinology (Dr. Duron) Consulted, Appreciate Rec's -TSH Trending down; T3, T4 noted; Cortisol, ACTH pending -Started on IV synthroid 25mcg Daily -Repeat labs after sepsis clears #AFib -Continue home dose Xarelto -Home dose Beta humberto held in the setting of Hypotension #DM -ISS, BGMs ACTID -A1c 6.8% -Hold Oral hypoglycemics #FEN -IV NS @ 50 mls/hr -Monitor for Hyperkalemia -Sodium controlled diet #PPx -DVT: Xarelto Dispo: ICU placement Visit type - Emergency Visit Emergency Visit: Yes ED Registration Date: 07/10/18 Care time: The patient presented to the Emergency Department on the above date and was hospitalized for further evaluation of their emergent condition. - New Patient This patient is new to me today: No - Critical Care Critical Care patient: No - Discharge Referral Referred to [facility] Med [facility].C.: No
[2018-07-12] MEDS: VANCOMYCIN 1,250 MG in DEXTROSE 5%-WATER - 250 ML IVPB SCH (15:51)
[2018-07-12] MEDS ORDERED: FLUDROCORTISONE ACETATE 0.1 MG TABLET (FP) GT SCH (16:16)
[2018-07-12] MEDS ORDERED: INSULIN SLIDING SCALE (NOVOLOG) 1 VIAL SQ SCH (16:30)
[2018-07-12] MEDS ORDERED: RIVAROXABAN 20 MG TABLET PO SCH (18:00)
[2018-07-12] MEDS: FLUDROCORTISONE ACETATE 0.1 MG TABLET (FP) NGT SCH (18:07)
[2018-07-12 19:10] LABS: ALBUMIN 2.2 g/dl (3.4-5.0); ALK PHOS 129 U/L (45-117); ANION GAP 10 MMOL/L (8-16); BILIRUBIN,TOTAL 0.6 mg/dL (0.2-1); BLOOD UREA NITROGEN 57 mg/dL (7-18); CALCIUM 7.5 mg/dL (8.5-10.1); CHLORIDE 108 mmol/L (98-107); CO2 21 mmol/L (21-32); CREATININE 1.3 mg/dL (0.55-1.3); GLUCOSE,RANDOM 256 mg/dL (74-106); POTASSIUM 4.4 mmol/L (3.5-5.1); SGOT/AST 421 U/L (15-37); SGPT/ALT 240 U/L (13-61); SODIUM 140 mmol/L (136-145); TOT PROT 5.2 g/dl (6.4-8.2)
--- NOTE | 2018-07-12 19:30 | CONSULT ---
Consult Consult Specialty:: Podiatry Reason for Consultation:: Onycholysis/Onychomycosis left big toe - History of Present Illness Chief Complaint: Onycholysis left big toe History of Present Illness: Onychomycosis, brittle nails - History Source History Provided By: Medical Record - Past Medical History Cardio/Vascular: Yes: AFIB, CAD, CHF, HTN, Hyperlipdemia Pulmonary: Yes: COPD, Sleep Apnea Renal/: Yes: BPH Endocrine: Yes: Diabetes Mellitus - Past Surgical History Past Surgical History: Yes: Permanent Pacemaker, TURP - Alcohol/Substance Use Hx Alcohol Use: No - Smoking History Smoking history: Never smoked Have you smoked in the past 12 months: No Aproximately how many cigarettes per day: 0 - Social History Usual Living Arrangement: Alone ADL: Support Services History of Recent Travel: No Home Medications - Allergies Allergies/Adverse Reactions: Allergies Allergy/AdvReac Type Severity Reaction Status Date / Time No Known Drug Allergies Allergy Verified 07/10/18 10:53 - Home Medications Home Medications: Ambulatory Orders Albuterol 2.5/Ipratropium 0.5 [Duoneb -] 1 neb IH QID 07/10/18 Atorvastatin Ca [Lipitor] 40 mg PO HS 07/10/18 Carvedilol [Coreg -] 6.25 mg PO BID 07/10/18 Docusate Sodium [Colace] 200 mg PO HS 07/10/18 Doxazosin Mesylate [Cardura Xl] 8 mg PO HS 07/10/18 Ferrous Sulfate [Feosol] 325 mg PO DAILY 07/10/18 Furosemide [Lasix -] 40 mg PO DAILY 07/10/18 Insulin Aspart [Novolog] 100 unit SQ ACHS 07/10/18 Insulin Detemir [Levemir Flextouch] 10 unit SQ HS 07/10/18 Losartan Potassium [Cozaar -] 50 mg PO DAILY 07/10/18 Mag Hydrox/Al Hydrox/Simeth [Mylanta *Suspension*] 30 ml PO Q6H PRN 07/10/18 Polyethylene Glycol 3350 [Miralax (For Daily Use) -] 17 gm PO BID 07/10/18 Rivaroxaban [Xarelto -] 20 mg PO DAILY 07/10/18 Sennosides [Senna] 17.2 mg PO HS 07/10/18 Silver Sulfadiazine 1% Top Cr [Silvadene -] 1 applic TP DAILY 07/10/18 clonazePAM [Klonopin -] 0.5 mg PO BID 07/10/18 Family Disease History - Family Disease History Family Disease History: Other: Father (Left when patient was young), Mother ( : 90: "old age") Physical Exam Vital Signs: Vital Signs Temperature 97.2 F L 07/12/18 14:00 Pulse Rate 60 07/12/18 18:00 Respiratory Rate 16 07/12/18 19:03 Blood Pressure 118/65 07/12/18 18:00 O2 Sat by Pulse Oximetry (%) 100 07/12/18 12:00 Extremities: Yes: Other (pvd mild b/l) Integumentary: Yes: Other (+onychomycosis left hallux, +onycholysis, -heel decubiti, +multiple excoriations b/l anterior shins) Labs: CBC, BMP 07/12/18 05:30 07/12/18 17:30 Assessment/Plan Onychomycosis onycholysis pvd Heel pads b/l. Will debride nail left hallux tomorrow. Will follow.
[2018-07-12] MEDS ORDERED: PT OWN MED DRAWER 7, Y5N ONE (21:52)
[2018-07-12] MEDS: DOCUSATE SODIUM 100 MG CAPSULE (FP) PO SCH (21:55)
[2018-07-12] MEDS: ATORVASTATIN CA 40 MG TABLET (FP) NGT SCH (21:55)
[2018-07-12] MEDS: CHLORHEXIDINE GLUCONATE 4% CLEANSER FOR DECOLONIZATION TP SCH (21:55)
[2018-07-12] MEDS: SENNOSIDES 8.6MG TABLET (FP) PO SCH (21:56)
[2018-07-12 22:36] LABS: HEMATOCRIT 22.6 % (35.4-49); HEMOGLOBIN 7.3 GM/dL (11.7-16.9); MCH 33.5 pg (25.7-33.7); MCHC 32.5 g/dl (32.0-35.9); MEAN CELL VOLUME 103.1 fl (80-96); PLATELET COUNT 283 K/MM3 (134-434); RBC 2.19 M/mm3 (4.00-5.60); RDW 18.4 % (11.9-15.9); WHITE BLOOD COUNT 22.4 K/mm3 (4.0-10.0)
[2018-07-12] MEDS ORDERED: morphine SULFATE 4 MG/ML VIAL ONE (22:44)
--- NOTE | 2018-07-13 00:30 | PN ---
Progress Note, Physician Chief Complaint: sedated intubated History of Present Illness: 83y M hx of dm,type 2,CHF, COPD (not on home o2), HTN, CAD (stent x 7, sp PM), venous insufficiency, septic and hypotensive requiring pressor support and iv fluid as well as iv steroids for adrenal support. sp intubation for respiratory failure. - Current Medication List Current Medications: Active Medications Al Hydroxide/Mg Hydroxide (Mylanta Oral Suspension -) 30 ml PO Q6H PRN PRN Reason: INDIGESTION Albuterol/Ipratropium (Duoneb -) 1 amp NEB RQID AYDIN Last Admin: 07/12/18 21:46 Dose: 1 amp Atorvastatin Calcium (Lipitor -) 40 mg NGT HS AYDIN Last Admin: 07/12/18 21:55 Dose: 40 mg Chlorhexidine Gluconate (Hibiclens For Decolonization -) 1 applic TP HS AYDIN Last Admin: 07/12/18 21:55 Dose: 1 applic Clonazepam (Klonopin -) 0.5 mg PO BID AYDIN Last Admin: 07/12/18 21:55 Dose: Not Given Docusate Sodium (Colace -) 200 mg PO HS AYDIN Last Admin: 07/12/18 21:55 Dose: Not Given Ferrous Sulfate (Feosol -) 325 mg PO DAILY AYDIN Last Admin: 07/12/18 13:53 Dose: 325 mg Fludrocortisone Acetate (Florinef -) 0.05 mg NGT DAILY AYDIN Last Admin: 07/12/18 18:07 Dose: 0.05 mg Hydrocortisone Sodium Succinate (Solu-Cortef -) 50 mg IVPB Q6H-IV AYDIN Last Admin: 07/12/18 21:53 Dose: 50 mg Piperacillin Sod/Tazobactam (Sod 3.375 gm/ Dextrose) 50 mls @ 100 mls/hr IVPB Q8H-IV AYDIN; Protocol Last Admin: 07/12/18 18:26 Dose: 100 mls/hr Norepinephrine Bitartrate 8, (000 mcg/ Dextrose) 500 mls @ 18.75 mls/hr IV TITR AYDIN; Protocol Last Titration: 07/12/18 23:29 Dose: 5 mcg/min, 18.75 mls/hr Sodium Chloride (Normal Saline -) 1,000 mls @ 50 mls/hr IV ASDIR AYDIN Last Admin: 07/12/18 09:54 Dose: 50 mls/hr Propofol (Diprivan -) 1,000,000 mcg in 100 mls @ 2.303 mls/hr IVPB TITR [facility]; Protocol Last Titration: 07/12/18 23:29 Dose: 30 mcg/kg/min, 13.819 mls/hr Vancomycin HCl 1,250 mg/ (Dextrose) 250 mls @ 166.667 mls/hr IVPB Q24H [facility]; Protocol Last Admin: 07/12/18 15:51 Dose: 166.667 mls/hr Insulin Aspart (Novolog Vial Sliding Scale -) 1 vial SQ Q4H [facility]; Protocol Levothyroxine Sodium (Synthroid Injection -) 25 mcg IVPUSH DAILY [facility] Last Admin: 07/12/18 13:35 Dose: 25 mcg Mupirocin (Bactroban Ointment (For Decolonization) -) 1 applic NS BID [facility] Stop: 07/15/18 21:59 Last Admin: 07/12/18 21:54 Dose: 1 applic Pantoprazole Sodium (Protonix Iv) 40 mg IVPUSH DAILY [facility] Last Admin: 07/12/18 14:04 Dose: 40 mg Polyethylene Glycol (Miralax (For Daily Use) -) 17 gm PO BID [facility] Last Admin: 07/12/18 21:55 Dose: Not Given Rivaroxaban (Xarelto -) 20 mg PO 1800 [facility] Last Admin: 07/12/18 18:12 Dose: Not Given Senna (Senna -) 2 tab PO HS [facility] Last Admin: 07/12/18 21:56 Dose: Not Given - Objective Vital Signs: Vital Signs Temperature 97.2 F L 07/12/18 19:42 Pulse Rate 60 07/12/18 23:29 Respiratory Rate 16 07/12/18 23:26 Blood Pressure 129/68 07/12/18 21:00 O2 Sat by Pulse Oximetry (%) 100 07/12/18 21:00 Constitutional: Yes: No Distress Eyes: Yes: Conjunctiva Clear HENT: Yes: Normocephalic Neck: Yes: Decreased ROM Cardiovascular: Yes: Regular Rate and Rhythm Respiratory: Yes: Mechanically Ventilated Gastrointestinal: Yes: Normal Bowel Sounds ...Rectal Exam: Yes: Deferred Genitourinary: Yes: WNL Musculoskeletal: Yes: Muscle Weakness Extremities: Yes: Cool, Delayed Capillary Refill, Erythema Edema: Yes Edema: LLE: 1+, RLE: 1+ Integumentary: Yes: Onychomycosis, Venous Stasis Changes Wound/Incision: Yes: Reddened Neurological: Yes: Other (sedated intubated) Labs: CBC, BMP 07/12/18 22:20 07/12/18 17:30 INR, PTT INR 2.33 (0.83-1.09) H 07/12/18 05:30 Fibrinogen 423.0 mg/dL (238-498) 07/12/18 05:30 Problem List - Problems (1) CHF (congestive heart failure) Code(s): I50.9 - HEART FAILURE, UNSPECIFIED Qualifiers: Heart failure type: combined systolic and diastolic Heart failure chronicity: chronic Qualified Code(s): I50.42 - Chronic combined systolic ( congestive) and diastolic (congestive) heart failure (2) Hypotension Code(s): I95.9 - HYPOTENSION, UNSPECIFIED Qualifiers: Hypotension type: unspecified hypotension type Qualified Code(s): I95.9 - Hypotension, unspecified (3) Hypothyroid Code(s): E03.9 - HYPOTHYROIDISM, UNSPECIFIED Qualifiers: Hypothyroidism type: unspecified Qualified Code(s): E03.9 - Hypothyroidism , unspecified (4) TSH elevation Code(s): R79.89 - OTHER SPECIFIED ABNORMAL FINDINGS OF BLOOD CHEMISTRY (5) ASHD (arteriosclerotic heart disease) Code(s): I25.10 - ATHSCL HEART DISEASE OF [place] CORONARY ARTERY W/O ANG PCTRS Assessment/Plan Current Active Problems CHF (congestive heart failure) (Acute) COPD (chronic obstructive pulmonary disease) (Acute) Hypotension (Acute) Hypothyroid (Acute) TSH elevation (Acute) Abnormal Lab Results 07/11/18 07/11/18 07/12/18 05:30 05:30 00:25 WBC RBC Hgb Hct MCV RDW Absolute Neuts (auto) Neutrophils % Neutrophils % (Manual) Lymphocytes % Lymphocytes % (Manual) Monocytes % (Manual) PT with INR INR PTT (Actin FS) ABG pCO2 at Pt Temp ABG HCO3 ABG O2 Content ABG Base Excess Potassium 5.7 H Chloride Carbon Dioxide BUN Creatinine Random Glucose Lactic Acid Calcium Phosphorus Magnesium AST ALT Alkaline Phosphatase Total Protein Albumin TSH Free T3 1.1 L ACTH 5.5 L 07/12/18 07/12/18 07/12/18 05:30 05:30 05:30 WBC 23.0 H RBC 2.15 L Hgb 7.2 L Hct 22.5 L MCV 104.5 H RDW 18.4 H Absolute Neuts (auto) 21.7 H Neutrophils % 94.1 H Neutrophils % (Manual) 92.0 H D Lymphocytes % 1.8 L Lymphocytes % (Manual) 4.0 L Monocytes % (Manual) 3 L PT with INR 27.70 H INR 2.33 H PTT (Actin FS) 36.8 H ABG pCO2 at Pt Temp ABG HCO3 ABG O2 Content ABG Base Excess Potassium 5.6 H Chloride 109 H Carbon Dioxide 18 L BUN 60 H Creatinine 1.5 H Random Glucose 229 H Lactic Acid Calcium 8.1 L Phosphorus 5.5 H Magnesium 2.9 H AST 456 H ALT 238 H Alkaline Phosphatase 139 H Total Protein 5.5 L Albumin 2.3 L TSH 11.50 H D Free T3 ACTH 07/12/18 07/12/18 07/12/18 06:00 08:14 12:00 WBC RBC Hgb Hct MCV RDW Absolute Neuts (auto) Neutrophils % Neutrophils % (Manual) Lymphocytes % Lymphocytes % (Manual) Monocytes % (Manual) PT with INR INR PTT (Actin FS) ABG pCO2 at Pt Temp 28.1 L D ABG HCO3 16.4 L ABG O2 Content 11.4 L ABG Base Excess -7.3 L Potassium Chloride 110 H Carbon Dioxide BUN 60 H Creatinine 1.4 H Random Glucose 235 H Lactic Acid 2.8 H* Calcium 7.8 L Phosphorus Magnesium AST ALT Alkaline Phosphatase Total Protein Albumin TSH Free T3 ACTH 07/12/18 07/12/18 17:30 22:20 WBC 22.4 H RBC 2.19 L Hgb 7.3 L Hct 22.6 L MCV 103.1 H RDW 18.4 H Absolute Neuts (auto) Neutrophils % Neutrophils % (Manual) Lymphocytes % Lymphocytes % (Manual) Monocytes % (Manual) PT with INR INR PTT (Actin FS) ABG pCO2 at Pt Temp ABG HCO3 ABG O2 Content ABG Base Excess Potassium Chloride 108 H Carbon Dioxide BUN 57 H Creatinine Random Glucose 256 H Lactic Acid Calcium 7.5 L Phosphorus Magnesium AST 421 H ALT 240 H Alkaline Phosphatase 129 H Total Protein 5.2 L Albumin 2.2 L TSH Free T3 ACTH Laboratory Tests 07/11/18 07/11/18 07/12/18 05:30 05:30 17:30 Sodium 140 Potassium 4.4 Chloride 108 H Carbon Dioxide 21 Anion Gap 10 BUN 57 H Creatinine 1.3 Creat Clearance w eGFR 52.72 POC Glucometer Random Glucose 256 H Free T4 0.88 Free T3 1.1 L 07/12/18 22:13 Sodium Potassium Chloride Carbon Dioxide Anion Gap BUN Creatinine Creat Clearance w eGFR POC Glucometer [phone] Random Glucose Free T4 Free T3 plan: thyroid replace low t3 conversion likely and overal sick state continue synthroid 25mcg supportive care iv steroid and florinef po bgm q4h coverage high in stress phase
[2018-07-13] MEDS ORDERED: PANTOPRAZOLE SODIUM 40 MG VIAL IVPUSH ONE (01:12)
[2018-07-13] MEDS: INSULIN SLIDING SCALE (NOVOLOG) 1 VIAL SQ SCH ×6 (02:14→21:54)
[2018-07-13] MEDS: HYDROCORTISONE SOD SUCCINATE 100 MG/2 ML VIAL IVPB SCH ×4 (02:17→21:53)
[2018-07-13] MEDS: PIPERACILLIN/TAZOB 3.375 GM 3.375 GM in DEXTROSE 5%-WATER - 50 ML IVPB SCH ×3 (02:20→18:14)
[2018-07-13] MEDS ORDERED: HEMOQUE TEST 1 EACH EACH ONE (05:13)
[2018-07-13 05:56] LABS: BASO % 0.1 % (0-2.0); EOS % 0.1 % (0-4.5); HEMATOCRIT 19.9 % (35.4-49); LYMPH % 2.2 % (8-40); MCH 33.7 pg (25.7-33.7); MCHC 32.7 g/dl (32.0-35.9); MEAN PLT VOLUME 8.6 fl (7.5-11.1); MONO % 3.3 % (3.8-10.2); NEUT % 94.3 % (42.8-82.8); PLATELET COUNT 219 K/MM3 (134-434); RBC 1.93 M/mm3 (4.00-5.60); RDW 17.7 % (11.9-15.9); WHITE BLOOD COUNT 19.5 K/mm3 (4.0-10.0)
[2018-07-13 06:08] LABS: HEP.C VIRUS AB 0.2 s/co ratio (0.0-0.9)
[2018-07-13 06:14] LABS: ALBUMIN 1.9 g/dl (3.4-5.0); ALK PHOS 115 U/L (45-117); ANION GAP 9 MMOL/L (8-16); BILIRUBIN,TOTAL 0.5 mg/dL (0.2-1); BLOOD UREA NITROGEN 50 mg/dL (7-18); CALCIUM 7.5 mg/dL (8.5-10.1); CHLORIDE 111 mmol/L (98-107); CO2 22 mmol/L (21-32); CREATININE 1.1 mg/dL (0.55-1.3); GLUCOSE,RANDOM 169 mg/dL (74-106); MAGNESIUM 2.5 mg/dL (1.8-2.4); POTASSIUM 3.9 mmol/L (3.5-5.1); SGOT/AST 312 U/L (15-37); SGPT/ALT 219 U/L (13-61); SODIUM 142 mmol/L (136-145); TOT PROT 4.7 g/dl (6.4-8.2)
[2018-07-13 06:32] LABS: HEMOGLOBIN 6.5 GM/dL (11.7-16.9)
[2018-07-13] MEDS: NOREPINEPHRINE BITARTRATE 8,000 MCG in DEXTROSE 5%-WATER - 492 ML IV SCH (06:44)
[2018-07-13] MEDS: SODIUM CHLORIDE 1,000 ML IV SCH (06:45)
[2018-07-13 06:58] LABS: ARTERIAL BLD GAS O2 SATURATION 99.4 % (90-98.9); ARTERIAL BLOOD GAS BASE EXCESS -5.3 meq/l (-2-2); ARTERIAL BLOOD GAS PCO2 42.3 mmHg (35-45)
[2018-07-13 07:09] LABS: INR 1.64 (0.83-1.09); PROTHROMBIN TIME (PATIENT) 19.5 SEC (9.7-13.0)
[2018-07-13 07:20] LABS: ALLENS TEST POSITIVE
[2018-07-13] MEDS ORDERED: LACTATED RINGERS SOLUTION 1,000 ML/1,000 ML INFUS.BAG IV SCH (08:15)
--- NOTE | 2018-07-13 08:32 | PN ---
Teaching Attending Note Name of Resident: Gwen Richardson ATTENDING PHYSICIAN STATEMENT I saw and evaluated the patient. I reviewed the resident's note and discussed the case with the resident. I agree with the resident's findings and plan as documented. SUBJECTIVE: Patient is intubated , sedated in ICU. OBJECTIVE: Vital Signs Temperature 95.7 F L 07/13/18 02:00 Pulse Rate 60 07/13/18 06:44 Respiratory Rate 16 07/13/18 07:09 Blood Pressure 108/64 07/13/18 06:44 O2 Sat by Pulse Oximetry (%) 100 07/13/18 03:29 ABG Results ABG pH 7.30 (7.35-7.45) L 07/13/18 06:30 ABG pCO2 at Pt Temp 42.3 mmHg (35-45) D 07/13/18 06:30 ABG pO2 at Pt Temp 155.0 mmHg (68-100) H* D 07/13/18 06:30 ABG HCO3 20.1 meq/L (22-26) L 07/13/18 06:30 ABG O2 Sat (Measured) 99.4 % (90-98.9) H 07/13/18 06:30 ABG O2 Content 8.3 % vol (15-22) L* 07/13/18 06:30 ABG Base Excess -5.3 meq/l (-2-2) L 07/13/18 06:30 GENERAL: The patient is intubated and sedated. HEAD: Normal with no signs of trauma. NECK: Trachea midline, full range of motion, supple. LUNGS: +scattered rhonchi bilaterally. HEART: Regular rate and rhythm, S1, S2 without murmur, rub or gallop. ABDOMEN: Soft, nontender, nondistended, normoactive bowel sounds. EXTREMITIES: +erythema and warmth bilaterally with minimal serosanguinous weeping lesions of LEs. SKIN: Warm, dry, normal turgor, positive for stage 1 sacral ulcer CBCD WBC 19.5 K/mm3 (4.0-10.0) H 07/13/18 05:30 RBC 1.93 M/mm3 (4.00-5.60) L 07/13/18 05:30 Hgb 6.5 GM/dL (11.7-16.9) L* 07/13/18 05:30 Hct 19.9 % (35.4-49) L 07/13/18 05:30 MCV 103.0 fl (80-96) H 07/13/18 05:30 MCHC 32.7 g/dl (32.0-35.9) 07/13/18 05:30 RDW 17.7 % (11.9-15.9) H 07/13/18 05:30 Plt Count 219 K/MM3 (134-434) D 07/13/18 05:30 MPV 8.6 fl (7.5-11.1) 07/13/18 05:30 CMP Sodium 142 mmol/L (136-145) 07/13/18 05:30 Potassium 3.9 mmol/L (3.5-5.1) 07/13/18 05:30 Chloride 111 mmol/L (98-107) H 07/13/18 05:30 Carbon Dioxide 22 mmol/L (21-32) 07/13/18 05:30 Anion Gap 9 MMOL/L (8-16) 07/13/18 05:30 BUN 50 mg/dL (7-18) H 07/13/18 05:30 Creatinine 1.1 mg/dL (0.55-1.3) 07/13/18 05:30 Creat Clearance w eGFR > 60 (>60) 07/13/18 05:30 Random Glucose 169 mg/dL (74-106) H 07/13/18 05:30 Calcium 7.5 mg/dL (8.5-10.1) L 07/13/18 05:30 Total Bilirubin 0.5 mg/dL (0.2-1) 07/13/18 05:30 AST 312 U/L (15-37) H 07/13/18 05:30 ALT 219 U/L (13-61) H 07/13/18 05:30 Alkaline Phosphatase 115 U/L (45-117) 07/13/18 05:30 Total Protein 4.7 g/dl (6.4-8.2) L 07/13/18 05:30 Albumin 1.9 g/dl (3.4-5.0) L 07/13/18 05:30 CARDIAC ENZYMES Creatine Kinase 179 IU/L (26-308) 07/10/18 16:00 Troponin I < 0.02 ng/ml (0.00-0.05) 07/10/18 16:00 Current Medications Generic Name Dose Route Start Last Admin Trade Name Freq PRN Reason Stop Dose Admin Al Hydroxide/Mg Hydroxide 30 ml 07/10/18 19:52 Mylanta Oral Suspension - PO Q6H PRN INDIGESTION Albuterol/Ipratropium 1 amp 07/10/18 20:15 07/12/18 21:46 Duoneb - NEB 1 amp RQID AYDIN Administration Atorvastatin Calcium 40 mg 07/12/18 22:00 07/12/18 21:55 Lipitor - NGT 40 mg HS AYDIN Administration Chlorhexidine Gluconate 1 applic 07/10/18 22:00 07/12/18 21:55 Hibiclens For Decolonization - TP 1 applic HS AYDIN Administration Clonazepam 0.5 mg 07/10/18 22:00 07/12/18 21:55 Klonopin - PO Not Given BID AYDIN Docusate Sodium 200 mg 07/10/18 22:00 07/12/18 21:55 Colace - PO Not Given HS AYDIN Ferrous Sulfate 325 mg 07/11/18 10:00 07/12/18 13:53 Feosol - PO 325 mg DAILY AYDIN Administration Fludrocortisone Acetate 0.05 mg 07/12/18 16:30 07/12/18 18:07 Florinef - NGT 0.05 mg DAILY AYDIN Administration Hydrocortisone Sodium Succinate 50 mg 07/11/18 15:00 07/13/18 02:17 Solu-Cortef - IVPB 50 mg Q6H-IV AYDIN Administration Piperacillin Sod/Tazobactam 50 mls @ 100 mls/hr 07/11/18 02:00 07/13/18 02:20 Sod 3.375 gm/ Dextrose IVPB 100 mls/hr Q8H-IV AYDIN Administration Protocol Norepinephrine Bitartrate 8, 500 mls @ 18.75 mls/hr 07/11/18 05:45 07/13/18 06:44 000 mcg/ Dextrose IV 2.5 mcg/min TITR AYDIN 9.37 mls/hr Administration Protocol 5 MCG/MIN Propofol 1,000,000 mcg in 100 mls @ 2.303 mls/hr 07/12/18 12:15 07/12/18 23: 29 Diprivan - IVPB 30 mcg/kg/min TITR AYDIN 13.819 mls/hr Titration Protocol 5 MCG/KG/MIN Vancomycin HCl 1,250 mg/ 250 mls @ 166.667 mls/hr 07/12/18 15:00 07/12/18 15: 51 Dextrose IVPB 166.667 mls/hr Q24H AYDIN Administration Protocol Pantoprazole Sodium 80 mg/ 100 mls @ 10 mls/hr 07/13/18 07:30 Sodium Chloride IVPB Q10H AYDIN 8 MG/HR Lactated Ringer's 1,000 ml in 1,000 mls @ 50 mls/hr 07/13/18 08:15 Lactated Ringers Solution IV ASDIR AYDIN Insulin Aspart 1 vial 07/13/18 02:00 07/13/18 06:45 Novolog Vial Sliding Scale - SQ 6 units Q4HPO AYDIN Administration Protocol Levothyroxine Sodium 25 mcg 07/12/18 10:00 07/12/18 13:35 Synthroid Injection - IVPUSH 25 mcg DAILY AYDIN Administration Mupirocin 1 applic 07/10/18 22:00 07/12/18 21:54 Bactroban Ointment (For Decolonization) - NS 07/15/18 21:59 1 applic BID AYDIN Administration Polyethylene Glycol 17 gm 07/10/18 22:00 07/12/18 21:55 Miralax (For Daily Use) - PO Not Given BID [facility] Senna 2 tab 07/10/18 22:00 07/12/18 21:56 Senna - PO Not Given HS [facility] Home Medications Medication Instructions Recorded Albuterol 2.5/Ipratropium 0.5 1 neb IH QID 07/10/18 [Duoneb -] Atorvastatin Ca [Lipitor] 40 mg PO HS 07/10/18 Carvedilol [Coreg -] 6.25 mg PO BID 07/10/18 Docusate Sodium [Colace] 200 mg PO HS 07/10/18 Doxazosin Mesylate [Cardura Xl] 8 mg PO HS 07/10/18 Ferrous Sulfate [Feosol] 325 mg PO DAILY 07/10/18 Furosemide [Lasix -] 40 mg PO DAILY 07/10/18 Insulin Aspart [Novolog] 100 unit SQ ACHS 07/10/18 Insulin Detemir [Levemir Flextouch] 10 unit SQ HS 07/10/18 Losartan Potassium [Cozaar -] 50 mg PO DAILY 07/10/18 Mag Hydrox/Al Hydrox/Simeth 30 ml PO Q6H PRN 07/10/18 [Mylanta *Suspension*] Polyethylene Glycol 3350 [Miralax 17 gm PO BID 07/10/18 (For Daily Use) -] Rivaroxaban [Xarelto -] 20 mg PO DAILY 07/10/18 Sennosides [Senna] 17.2 mg PO HS 07/10/18 Silver Sulfadiazine 1% Top Cr 1 applic TP DAILY 07/10/18 [Silvadene -] clonazePAM [Klonopin -] 0.5 mg PO BID 07/10/18 07/11/18 03:30 Leg - Right Lower Gram Stain - Final 07/11/18 03:30 Leg - Right Lower Wound Culture - Preliminary Pseudomonas Aeruginosa Klebsiella Oxytoca Mr S Aureus Enterococcus Faecalis 07/10/18 11:15 Blood - Peripheral Venous Blood Culture - Preliminary NO GROWTH OBTAINED AFTER 96 HOURS, INCUBATION TO CONTINUE FOR 1 DAYS. 07/10/18 11:00 Blood - Peripheral Venous Blood Culture - Preliminary NO GROWTH OBTAINED AFTER 96 HOURS, INCUBATION TO CONTINUE FOR 1 DAYS. 07/10/18 12:20 Urine - Urine Clean Catch Urine Culture - Final Staphylococcus Warneri ASSESSMENT AND PLAN: Patient is a 83 y/o man with h/o CAD, s/p stents, permanent A fib, Systolic heart failure, HTN, HLP, DM , CKD , Anemia, COPD,recent admission for acute CHF exacerbation who was sent from [place] for LE pain and was found to have hypothermia and hypotension # Septic shock multifactorial due to LE cellulites on IV antibiotics , on levophed, cont IVF, On Zosyn, and on IV hydrocortisone # Acute hypoxic, hypercapnic resp failure as per icu team will be intubated if does not improve. #Abn TFT, Elevated TSH , likely due to sick euthyroid syndrome, will repeat the level post recovery # H/o A fib: On Xarelto , hold coreg due to hypotension . # H/o CHF: not in acute decompensated CHF now, hold lasix. patient is in ICU DVt Px: SCDs.
[2018-07-13] MEDS: ALBUTEROL SO4 2.5/IPRATROPIUM 0.5 INH SOL 3 ML VIAL.NEB. NEB SCH ×4 (09:06→19:11)
[2018-07-13 09:14] LABS: INR 1.58 (0.83-1.09); PROTHROMBIN TIME (PATIENT) 18.7 SEC (9.7-13.0)
[2018-07-13] MEDS: LACTATED RINGERS SOLUTION 1,000 ML/1,000 ML INFUS.BAG IV SCH ×2 (09:35→17:17)
[2018-07-13] MEDS ORDERED: PIPERACILLIN/TAZOBACTAM 3.375 GM VIAL IVPB ONE ×2 (09:39→18:13)
[2018-07-13] MEDS ORDERED: DEXTROSE 5%-WATER - 50 ML IVPB ONE ×2 (09:39→18:13)
[2018-07-13] MEDS ORDERED: PT OWN MED DRAWER 7, Y5N ONE ×4 (09:39→21:59)
[2018-07-13] MEDS: FLUDROCORTISONE ACETATE 0.1 MG TABLET (FP) NGT SCH (10:01)
[2018-07-13] MEDS: MUPIROCIN 2% TOPICAL OINTMENT FOR DECOLONIZATION NS SCH ×2 (10:02→22:03)
[2018-07-13] MEDS: FERROUS SO4 325 MG TABLET (FP) PO SCH (10:02)
[2018-07-13] MEDS: POLYETHYLENE GLYCOL 3350 119 GM BTL PO SCH ×2 (10:03→21:54)
[2018-07-13] MEDS: LEVOTHYROXINE SODIUM 100 MCG VIAL IVPUSH SCH (10:03)
[2018-07-13] MEDS: clonazePAM 0.5 MG TABLET PO SCH ×2 (10:03→21:53)
[2018-07-13] MEDS: PROPOFOL 1,000,000 MCG/100 ML VIAL IVPB SCH ×3 (10:15→17:30)
[2018-07-13 10:19] LABS: ACANTHOCYTES 1+; ANISOCYTOSIS 1+; MACROCYTOSIS 1+; OVALOCYTE 1+; PLATELET ESTIMATE NORMAL
[2018-07-13] MEDS: PANTOPRAZOLE SODIUM 80 MG in SODIUM CHLORIDE 100 ML IVPB SCH ×3 (11:57→22:00)
--- NOTE | 2018-07-13 13:11 | PN ---
Teaching Attending Note Name of Resident: Capri Erickson ATTENDING PHYSICIAN STATEMENT I saw and evaluated the patient. I reviewed the resident's note and discussed the case with the resident. I agree with the resident's findings and plan as documented. SUBJECTIVE: Patient seen and examined in the ICU. Intubated and sedated. NE at 3 mcq for hemodynamic support. AC Mode of vent. Hypothermic and now on a warming blanket. Intake & Output 07/10/18 07/11/18 07/12/18 07/13/18 23:59 23:59 23:59 23:59 Intake Total 1850 3810 4919 954 Output Total 1120 1500 1700 Balance 730 2310 3219 954 Weight 205 lb 169 lb 4 oz 169 lb 176 lb 12.972 oz Last Vital Signs Temp Pulse Resp BP Pulse Ox 92.3 F L 60 11 124/72 100 07/13/18 10:00 07/13/18 10:00 07/13/18 10:00 07/13/18 10:00 07/13/18 09:04 Active Medications Al Hydroxide/Mg Hydroxide (Mylanta Oral Suspension -) 30 ml PO Q6H PRN PRN Reason: INDIGESTION Albuterol/Ipratropium (Duoneb -) 1 amp NEB RQID [facility] Last Admin: 07/13/18 09:06 Dose: 1 amp Atorvastatin Calcium (Lipitor -) 40 mg NGT HS [facility] Last Admin: 07/12/18 21:55 Dose: 40 mg Chlorhexidine Gluconate (Hibiclens For Decolonization -) [address] [facility] Last Admin: 07/12/18 21:55 Dose: 1 applic Clonazepam (Klonopin -) 0.5 mg PO BID [facility] Last Admin: 07/13/18 10:03 Dose: 0.5 mg Docusate Sodium (Colace -) [address] [facility] Last Admin: 07/12/18 21:55 Dose: Not Given Ferrous Sulfate (Feosol -) 325 mg PO DAILY [facility] Last Admin: 07/13/18 10:02 Dose: 325 mg Fludrocortisone Acetate (Florinef -) 0.05 mg NGT DAILY [facility] Last Admin: 07/13/18 10:01 Dose: 0.05 mg Hydrocortisone Sodium Succinate (Solu-Cortef -) 25 mg IVPB Q6H-IV [facility] Piperacillin Sod/Tazobactam (Sod 3.375 gm/ Dextrose) 50 mls @ 100 mls/hr IVPB Q8H-IV [facility]; Protocol Last Admin: 07/13/18 10:04 Dose: 100 mls/hr Norepinephrine Bitartrate 8, (000 mcg/ Dextrose) 500 mls @ 18.75 mls/hr IV TITR [facility]; Protocol Last Admin: 07/13/18 06:44 Dose: 2.5 mcg/min, 9.37 mls/hr Propofol (Diprivan -) 1,000,000 mcg in 100 mls @ 2.303 mls/hr IVPB TITR [facility]; Protocol Last Admin: 07/13/18 10:15 Dose: 30 mcg/kg/min, 13.819 mls/hr Vancomycin HCl 1,250 mg/ (Dextrose) 250 mls @ 166.667 mls/hr IVPB Q24H [facility]; Protocol Last Admin: 07/12/18 15:51 Dose: 166.667 mls/hr Pantoprazole Sodium 80 mg/ (Sodium Chloride) 100 mls @ 10 mls/hr IVPB Q10H [facility] Last Admin: 07/13/18 11:57 Dose: 10 mls/hr Lactated Ringer's (Lactated Ringers Solution) 1,000 ml in 1,000 mls @ 50 mls/ hr IV ASDIR [facility] Last Admin: 07/13/18 11:00 Dose: 50 mls/hr Insulin Aspart (Novolog Vial Sliding Scale -) 1 vial SQ Q4HPO [facility]; Protocol Last Admin: 07/13/18 10:48 Dose: 2 units Levothyroxine Sodium (Synthroid Injection -) 25 mcg IVPUSH DAILY [facility] Last Admin: 07/13/18 10:03 Dose: 25 mcg Mupirocin (Bactroban Ointment (For Decolonization) -) 1 applic NS BID [facility] Stop: 07/15/18 21:59 Last Admin: 07/13/18 10:02 Dose: 1 applic Polyethylene Glycol (Miralax (For Daily Use) -) 17 gm PO BID [facility] Last Admin: 07/13/18 10:03 Dose: Not Given Senna (Senna -) 2 tab PO HS [facility] Last Admin: 07/12/18 21:56 Dose: Not Given GENERAL: Intubated and sedated HEAD: Normal with no signs of trauma. EYES: Exophthalmus, EOM intact, no pallor or icterus. EARS, NOSE, THROAT: Ears normal. Dry mucous membranes. NECK: Supple, no JVD. LUNGS: bibasilar rhonchi, no wheeze. HEART: Tachycardic, Regular rate and rhythm, normal S1 and S2 with systolic murmur +. ABDOMEN: Soft, nontender, no organomegaly. MUSCULOSKELETAL: Normal range of motion at all joints. No bony deformities or tenderness. No CVA tenderness. UPPER EXTREMITIES: 2+ pulses, warm, well-perfused. No cyanosis. No clubbing. LOWER EXTREMITIES: B/L erythema of the skin of lower extremities with serosanguinous fluids weeping NEUROLOGICAL: sedated Laboratory Results - last 24 hr 07/10/18 07/11/18 07/12/18 13:20 05:30 08:10 WBC RBC Hgb Hct MCV MCH MCHC RDW Plt Count MPV Absolute Neuts (auto) Neutrophils % Neutrophils % (Manual) Band Neutrophils % Lymphocytes % Lymphocytes % (Manual) Monocytes % Monocytes % (Manual) Eosinophils % Eosinophils % (Manual) Basophils % Basophils % (Manual) Myelocytes % (Man) Promyelocytes % (Man) Blast Cells % (Manual) Nucleated RBC % Metamyelocytes Hypochromia Platelet Estimate Polychromasia Poikilocytosis Anisocytosis Microcytosis Macrocytosis Ovalocytes Acanthocytes (Spur) Schistocytes PT with INR INR Anticoagulation Therapy Puncture Site ABG pH ABG pCO2 at Pt Temp ABG pO2 at Pt Temp ABG HCO3 ABG O2 Sat (Measured) ABG O2 Content ABG Base Excess Jaret Test O2 Delivery Device Oxygen Flow Rate Vent Mode Vent Rate Mechanical Rate Pressure Support Vent Sodium Potassium Chloride Carbon Dioxide Anion Gap BUN Creatinine Creat Clearance w eGFR POC Glucometer Random Glucose Lactic Acid Calcium Phosphorus Magnesium Total Bilirubin AST ALT Alkaline Phosphatase Total Protein Albumin Cortisol PM Sample 99.5 H ACTH 5.5 L Stool Occult Blood Positive Hepatitis A IgM Ab Hep Bs Antigen Hep B Core IgM Ab Hepatitis C Antibody Blood Type Antibody Screen Crossmatch 07/12/18 07/12/18 07/12/18 11:00 12:00 12:00 WBC RBC Hgb Hct MCV MCH MCHC RDW Plt Count MPV Absolute Neuts (auto) Neutrophils % Neutrophils % (Manual) Band Neutrophils % Lymphocytes % Lymphocytes % (Manual) Monocytes % Monocytes % (Manual) Eosinophils % Eosinophils % (Manual) Basophils % Basophils % (Manual) Myelocytes % (Man) Promyelocytes % (Man) Blast Cells % (Manual) Nucleated RBC % Metamyelocytes Hypochromia Platelet Estimate Polychromasia Poikilocytosis Anisocytosis Microcytosis Macrocytosis Ovalocytes Acanthocytes (Spur) Schistocytes PT with INR INR Anticoagulation Therapy Puncture Site ABG pH ABG pCO2 at Pt Temp ABG pO2 at Pt Temp ABG HCO3 ABG O2 Sat (Measured) ABG O2 Content ABG Base Excess Jaret Test O2 Delivery Device Oxygen Flow Rate Vent Mode Vent Rate Mechanical Rate Pressure Support Vent Sodium 141 Potassium 4.7 Chloride 110 H Carbon Dioxide 21 Anion Gap 10 BUN 60 H Creatinine 1.4 H Creat Clearance w eGFR 48.40 POC Glucometer Random Glucose 235 H Lactic Acid 1.5 Calcium 7.8 L Phosphorus Magnesium Total Bilirubin AST ALT Alkaline Phosphatase Total Protein Albumin Cortisol PM Sample ACTH Stool Occult Blood Hepatitis A IgM Ab Negative Hep Bs Antigen Negative Hep B Core IgM Ab Negative Hepatitis C Antibody 0.2 Blood Type Antibody Screen Crossmatch 07/12/18 07/12/18 07/12/18 16:53 17:30 22:13 WBC RBC Hgb Hct MCV MCH MCHC RDW Plt Count MPV Absolute Neuts (auto) Neutrophils % Neutrophils % (Manual) Band Neutrophils % Lymphocytes % Lymphocytes % (Manual) Monocytes % Monocytes % (Manual) Eosinophils % Eosinophils % (Manual) Basophils % Basophils % (Manual) Myelocytes % (Man) Promyelocytes % (Man) Blast Cells % (Manual) Nucleated RBC % Metamyelocytes Hypochromia Platelet Estimate Polychromasia Poikilocytosis Anisocytosis Microcytosis Macrocytosis Ovalocytes Acanthocytes (Spur) Schistocytes PT with INR INR Anticoagulation Therapy Puncture Site ABG pH ABG pCO2 at Pt Temp ABG pO2 at Pt Temp ABG HCO3 ABG O2 Sat (Measured) ABG O2 Content ABG Base Excess Jaret Test O2 Delivery Device Oxygen Flow Rate Vent Mode Vent Rate Mechanical Rate Pressure Support Vent Sodium 140 Potassium 4.4 Chloride 108 H Carbon Dioxide 21 Anion Gap 10 BUN 57 H Creatinine 1.3 Creat Clearance w eGFR 52.72 POC Glucometer 252.37481 299.40411 Random Glucose 256 H Lactic Acid Calcium 7.5 L Phosphorus Magnesium Total Bilirubin 0.6 AST 421 H ALT 240 H Alkaline Phosphatase 129 H Total Protein 5.2 L Albumin 2.2 L Cortisol PM Sample ACTH Stool Occult Blood Hepatitis A IgM Ab Hep Bs Antigen Hep B Core IgM Ab Hepatitis C Antibody Blood Type Antibody Screen Crossmatch 07/12/18 07/13/18 07/13/18 22:20 02:13 05:11 WBC 22.4 H RBC 2.19 L Hgb 7.3 L Hct 22.6 L MCV 103.1 H MCH 33.5 MCHC 32.5 RDW 18.4 H Plt Count 283 MPV 9.0 Absolute Neuts (auto) Neutrophils % Neutrophils % (Manual) Band Neutrophils % Lymphocytes % Lymphocytes % (Manual) Monocytes % Monocytes % (Manual) Eosinophils % Eosinophils % (Manual) Basophils % Basophils % (Manual) Myelocytes % (Man) Promyelocytes % (Man) Blast Cells % (Manual) Nucleated RBC % Metamyelocytes Hypochromia Platelet Estimate Polychromasia Poikilocytosis Anisocytosis Microcytosis Macrocytosis Ovalocytes Acanthocytes (Spur) Schistocytes PT with INR INR Anticoagulation Therapy Puncture Site ABG pH ABG pCO2 at Pt Temp ABG pO2 at Pt Temp ABG HCO3 ABG O2 Sat (Measured) ABG O2 Content ABG Base Excess Jaret Test O2 Delivery Device Oxygen Flow Rate Vent Mode Vent Rate Mechanical Rate Pressure Support Vent Sodium Potassium Chloride Carbon Dioxide Anion Gap BUN Creatinine Creat Clearance w eGFR POC Glucometer 248.00608 218.59634 Random Glucose Lactic Acid Calcium Phosphorus Magnesium Total Bilirubin AST ALT Alkaline Phosphatase Total Protein Albumin Cortisol PM Sample ACTH Stool Occult Blood Hepatitis A IgM Ab Hep Bs Antigen Hep B Core IgM Ab Hepatitis C Antibody Blood Type Antibody Screen Crossmatch 07/13/18 07/13/18 07/13/18 05:30 05:30 05:30 WBC 19.5 H RBC 1.93 L Hgb 6.5 L* Hct 19.9 L MCV 103.0 H MCH 33.7 MCHC 32.7 RDW 17.7 H Plt Count 219 D MPV 8.6 Absolute Neuts (auto) 18.4 H Neutrophils % 94.3 H Neutrophils % (Manual) 92.0 H Band Neutrophils % 3.0 Lymphocytes % 2.2 L D Lymphocytes % (Manual) 2.0 L D Monocytes % 3.3 L Monocytes % (Manual) 3 L Eosinophils % 0.1 D Eosinophils % (Manual) 0.0 Basophils % 0.1 Basophils % (Manual) 0.0 Myelocytes % (Man) 0 Promyelocytes % (Man) 0 Blast Cells % (Manual) 0 Nucleated RBC % 0 Metamyelocytes 0 Hypochromia 0 Platelet Estimate Normal Polychromasia 0 Poikilocytosis 3+ Anisocytosis 1+ Microcytosis 1+ Macrocytosis 1+ Ovalocytes 1+ Acanthocytes (Spur) 1+ Schistocytes 1+ PT with INR 19.50 H INR 1.64 H Anticoagulation Therapy Puncture Site ABG pH ABG pCO2 at Pt Temp ABG pO2 at Pt Temp ABG HCO3 ABG O2 Sat (Measured) ABG O2 Content ABG Base Excess Jaret Test O2 Delivery Device Oxygen Flow Rate Vent Mode Vent Rate Mechanical Rate Pressure Support Vent Sodium 142 Potassium 3.9 Chloride 111 H Carbon Dioxide 22 Anion Gap 9 BUN 50 H Creatinine 1.1 Creat Clearance w eGFR > 60 POC Glucometer Random Glucose 169 H Lactic Acid Calcium 7.5 L Phosphorus 4.0 Magnesium 2.5 H Total Bilirubin 0.5 AST 312 H ALT 219 H Alkaline Phosphatase 115 Total Protein 4.7 L Albumin 1.9 L Cortisol PM Sample ACTH Stool Occult Blood Hepatitis A IgM Ab Hep Bs Antigen Hep B Core IgM Ab Hepatitis C Antibody Blood Type Antibody Screen Crossmatch 07/13/18 07/13/18 07/13/18 05:30 06:30 08:10 WBC RBC Hgb Hct MCV MCH MCHC RDW Plt Count MPV Absolute Neuts (auto) Neutrophils % Neutrophils % (Manual) Band Neutrophils % Lymphocytes % Lymphocytes % (Manual) Monocytes % Monocytes % (Manual) Eosinophils % Eosinophils % (Manual) Basophils % Basophils % (Manual) Myelocytes % (Man) Promyelocytes % (Man) Blast Cells % (Manual) Nucleated RBC % Metamyelocytes Hypochromia Platelet Estimate Polychromasia Poikilocytosis Anisocytosis Microcytosis Macrocytosis Ovalocytes Acanthocytes (Spur) Schistocytes PT with INR INR Anticoagulation Therapy No Result Required. Puncture Site Right radial ABG pH 7.30 L ABG pCO2 at Pt Temp 42.3 D ABG pO2 at Pt Temp 155.0 H* D ABG HCO3 20.1 L ABG O2 Sat (Measured) 99.4 H ABG O2 Content 8.3 L* ABG Base Excess -5.3 L Jaret Test Positive O2 Delivery Device No Result Required. Oxygen Flow Rate Yes Vent Mode No Result Required. Vent Rate No Result Required. Mechanical Rate No Result Required. Pressure Support Vent No Result Required. Sodium Potassium Chloride Carbon Dioxide Anion Gap BUN Creatinine Creat Clearance w eGFR POC Glucometer Random Glucose Lactic Acid 1.3 Calcium Phosphorus Magnesium Total Bilirubin AST ALT Alkaline Phosphatase Total Protein Albumin Cortisol PM Sample ACTH Stool Occult Blood Hepatitis A IgM Ab Hep Bs Antigen Hep B Core IgM Ab Hepatitis C Antibody Blood Type O POSITIVE Antibody Screen Negative Crossmatch See Detail 07/13/18 07/13/18 08:10 10:46 WBC RBC Hgb Hct MCV MCH MCHC RDW Plt Count MPV Absolute Neuts (auto) Neutrophils % Neutrophils % (Manual) Band Neutrophils % Lymphocytes % Lymphocytes % (Manual) Monocytes % Monocytes % (Manual) Eosinophils % Eosinophils % (Manual) Basophils % Basophils % (Manual) Myelocytes % (Man) Promyelocytes % (Man) Blast Cells % (Manual) Nucleated RBC % Metamyelocytes Hypochromia Platelet Estimate Polychromasia Poikilocytosis Anisocytosis Microcytosis Macrocytosis Ovalocytes Acanthocytes (Spur) Schistocytes PT with INR 18.70 H INR 1.58 H Anticoagulation Therapy Puncture Site ABG pH ABG pCO2 at Pt Temp ABG pO2 at Pt Temp ABG HCO3 ABG O2 Sat (Measured) ABG O2 Content ABG Base Excess Jaret Test O2 Delivery Device Oxygen Flow Rate Vent Mode Vent Rate Mechanical Rate Pressure Support Vent Sodium Potassium Chloride Carbon Dioxide Anion Gap BUN Creatinine Creat Clearance w eGFR POC Glucometer 170.72109 Random Glucose Lactic Acid Calcium Phosphorus Magnesium Total Bilirubin AST ALT Alkaline Phosphatase Total Protein Albumin Cortisol PM Sample ACTH Stool Occult Blood Hepatitis A IgM Ab Hep Bs Antigen Hep B Core IgM Ab Hepatitis C Antibody Blood Type Antibody Screen Crossmatch ASSESSMENT/PLAN: Septoc Shock due to tract infection versus Skin pathogens due to LE wounds Systolic / Diastolic CHF COPD HTN HLD CAD S/P PCI x 7 PPM Atrial Fibrillation DM Chronic venous insufficiency BPH s/p TURP CKD Anemia Severe OSAS (RDI 108 per hour / desaturation to 72%) (?) Myxedema versus Euthyroid Sick Syndrome AC Mode of vent Broad ABX coverage O2 as needed Aspiration precautions Follow final cultures Strict I & O Aspiration precautions Wean pressors Hydrocortisone / Fludrocortisone for Shock (wean steroids due to GI and shock is resolving) Glycemic control AC Dr Claudio Critical care time spent in reviewing chart, evaluating patient and formulating plan - 36 minutes.
--- NOTE | 2018-07-13 13:13 | CON.GI ---
Consult Consult Specialty:: GI Referred by:: Hospitalist Service Reason for Consultation:: Coffee grounds from OGT - History of Present Illness Chief Complaint: Patient unable to give history as he is intubated on vent History of Present Illness: 83M with recent prolonged hospitalization for SOB 04/22. Evaluated for abdominal distention at that time. Had CT scan 04/27/18 that failed to reveal evidence of SBO. He was followed by girl friday Dr. Daniel Salguero. He was admitted from [place] 07/10/18 for evaluation of leg wounds, was noted to be hypotensive, intubated. OGT was placed and coffee grounds were noted. There has been no overt bleeding. He is maintained on a bharath hugger due to hypothermia and is receiving pressor support. In review of the [employer] system he has a chronic macrocytic anemia. His Hgb was 6.5 this morning. yesterday it was 7.2. There is no family history of colorectal cancer. - History Source History Provided By: Medical Record Limitations to Obtaining History: Intubated - Past Medical History Cardio/Vascular: Yes: AFIB, CAD, CHF, HTN, Hyperlipdemia Pulmonary: Yes: COPD, Sleep Apnea Renal/: Yes: BPH Endocrine: Yes: Diabetes Mellitus - Past Surgical History Past Surgical History: Yes: Permanent Pacemaker, TURP - Alcohol/Substance Use Hx Alcohol Use: No - Smoking History Smoking history: Never smoked Have you smoked in the past 12 months: No Aproximately how many cigarettes per day: 0 - Social History Usual Living Arrangement: Alone ADL: Support Services History of Recent Travel: No Home Medications - Allergies Allergies/Adverse Reactions: Allergies Allergy/AdvReac Type Severity Reaction Status Date / Time No Known Drug Allergies Allergy Verified 07/10/18 10:53 - Home Medications Home Medications: Ambulatory Orders Albuterol 2.5/Ipratropium 0.5 [Duoneb -] 1 neb IH QID 07/10/18 Atorvastatin Ca [Lipitor] 40 mg PO HS 07/10/18 Carvedilol [Coreg -] 6.25 mg PO BID 07/10/18 Docusate Sodium [Colace] 200 mg PO HS 07/10/18 Doxazosin Mesylate [Cardura Xl] 8 mg PO HS 07/10/18 Ferrous Sulfate [Feosol] 325 mg PO DAILY 07/10/18 Furosemide [Lasix -] 40 mg PO DAILY 07/10/18 Insulin Aspart [Novolog] 100 unit SQ ACHS 07/10/18 Insulin Detemir [Levemir Flextouch] 10 unit SQ HS 07/10/18 Losartan Potassium [Cozaar -] 50 mg PO DAILY 07/10/18 Mag Hydrox/Al Hydrox/Simeth [Mylanta *Suspension*] 30 ml PO Q6H PRN 07/10/18 Polyethylene Glycol 3350 [Miralax (For Daily Use) -] 17 gm PO BID 07/10/18 Rivaroxaban [Xarelto -] 20 mg PO DAILY 07/10/18 Sennosides [Senna] 17.2 mg PO HS 07/10/18 Silver Sulfadiazine 1% Top Cr [Silvadene -] 1 applic TP DAILY 07/10/18 clonazePAM [Klonopin -] 0.5 mg PO BID 07/10/18 Family Disease History - Family Disease History Family Disease History: Other: Father (Left when patient was young), Mother ( : 90: "old age") Review of Systems Unable to obtain ROS, reason: Patient intubated - Review of Systems Constitutional: reports: Chills Physical Exam-GI Vital Signs: Vital Signs Temperature 92.3 F L 07/13/18 10:00 Pulse Rate 60 07/13/18 10:00 Respiratory Rate 11 07/13/18 10:00 Blood Pressure 124/72 07/13/18 10:00 O2 Sat by Pulse Oximetry (%) 100 07/13/18 09:04 Constitutional: Yes: Calm Eyes: No: Sclera Icterus HENT: Yes: Other (OGT lavaged with 500 sterile water. No blood / coffee grounds aspirated.) Cardiovascular: Yes: Regular Rate and Rhythm Respiratory: Yes: Diminished (at bases b/l, poor insp effort) Gastrointestinal Inspection: No: Distention ...Auscultate: Yes: Hypoactive Bowel Sounds ...Palpate: Yes: Soft. No: Tenderness (No grimacing upon palpation) ...Percussion: No: Tympanitic ...Rectal Exam: Yes: Other (Light brown formed stool in rectal vault, no blood/ melena) Extremities: Yes: Other (Bilateral LE wounds) Labs: CBC, BMP 07/13/18 05:30 07/13/18 05:30 INR, PTT INR 1.58 (0.83-1.09) H 07/13/18 08:10 Fibrinogen 423.0 mg/dL (238-498) 07/12/18 05:30 Problem List - Problems (1) Coffee ground emesis Assessment/Plan: Likely related to gastric retention in setting of septic chock along with component of stress gastritis Given overall clinical picture, opting for conservative management without endoscopic intervention planned Continue PPI drip, D/C after 48 hours if no over bleeding and continue 40mg IVPB daily Avoid NSAIDs Palliative care evaluation to help guide goals of care Code(s): K92.0 - HEMATEMESIS
--- NOTE | 2018-07-13 14:35 | PN ---
Physical Exam: SUBJECTIVE: Patient seen and examined at bedside. Patient is sedated and intubated. Coffee-ground aspirated on the OG tube overnight. Put on continuous suction since, clear yellowish fluid aspirated this morning, continuous suction discontinued. OBJECTIVE: Vital Signs Period Temp Pulse Resp BP Sys/Kuo Pulse Ox Last 24 Hr 92.3 F-97.2 F 59-60 11-112 91-129/54-72 100-100 GENERAL: The patient is intubated and sedated. HEAD: Normal with no signs of trauma. NECK: Trachea midline, full range of motion, supple. LUNGS: +scattered rhonchi bilaterally. HEART: Regular rate and rhythm, S1, S2 without murmur, rub or gallop. ABDOMEN: Soft, nontender, nondistended, normoactive bowel sounds. KOMAL: no hemorrhoids, soft brown stools, no gross blood, no mass or fissures palpated UPPER EXTREMITIES: 2+ pulses, warm, well-perfused, no edema. LOWER EXTREMITIES: +erythema and warmth bilaterally with minimal serosanguinous weeping lesions. SKIN: Warm, dry, normal turgor, +stage 1 sacral ulcer Laboratory Results - last 24 hr 07/10/18 07/11/18 07/12/18 13:20 05:30 08:10 WBC RBC Hgb Hct MCV MCH MCHC RDW Plt Count MPV Absolute Neuts (auto) Neutrophils % Neutrophils % (Manual) Band Neutrophils % Lymphocytes % Lymphocytes % (Manual) Monocytes % Monocytes % (Manual) Eosinophils % Eosinophils % (Manual) Basophils % Basophils % (Manual) Myelocytes % (Man) Promyelocytes % (Man) Blast Cells % (Manual) Nucleated RBC % Metamyelocytes Hypochromia Platelet Estimate Polychromasia Poikilocytosis Anisocytosis Microcytosis Macrocytosis Ovalocytes Acanthocytes (Spur) Schistocytes PT with INR INR Anticoagulation Therapy Puncture Site ABG pH ABG pCO2 at Pt Temp ABG pO2 at Pt Temp ABG HCO3 ABG O2 Sat (Measured) ABG O2 Content ABG Base Excess Jaret Test O2 Delivery Device Oxygen Flow Rate Vent Mode Vent Rate Mechanical Rate Pressure Support Vent Sodium Potassium Chloride Carbon Dioxide Anion Gap BUN Creatinine Creat Clearance w eGFR POC Glucometer Random Glucose Lactic Acid Calcium Phosphorus Magnesium Total Bilirubin AST ALT Alkaline Phosphatase Total Protein Albumin Cortisol PM Sample 99.5 H ACTH 5.5 L Stool Occult Blood Positive Hepatitis A IgM Ab Hep Bs Antigen Hep B Core IgM Ab Hepatitis C Antibody Blood Type Antibody Screen Crossmatch 07/12/18 07/12/18 07/12/18 11:00 16:53 17:30 WBC RBC Hgb Hct MCV MCH MCHC RDW Plt Count MPV Absolute Neuts (auto) Neutrophils % Neutrophils % (Manual) Band Neutrophils % Lymphocytes % Lymphocytes % (Manual) Monocytes % Monocytes % (Manual) Eosinophils % Eosinophils % (Manual) Basophils % Basophils % (Manual) Myelocytes % (Man) Promyelocytes % (Man) Blast Cells % (Manual) Nucleated RBC % Metamyelocytes Hypochromia Platelet Estimate Polychromasia Poikilocytosis Anisocytosis Microcytosis Macrocytosis Ovalocytes Acanthocytes (Spur) Schistocytes PT with INR INR Anticoagulation Therapy Puncture Site ABG pH ABG pCO2 at Pt Temp ABG pO2 at Pt Temp ABG HCO3 ABG O2 Sat (Measured) ABG O2 Content ABG Base Excess Jaret Test O2 Delivery Device Oxygen Flow Rate Vent Mode Vent Rate Mechanical Rate Pressure Support Vent Sodium 140 Potassium 4.4 Chloride 108 H Carbon Dioxide 21 Anion Gap 10 BUN 57 H Creatinine 1.3 Creat Clearance w eGFR 52.72 POC Glucometer [phone] Random Glucose 256 H Lactic Acid Calcium 7.5 L Phosphorus Magnesium Total Bilirubin 0.6 AST 421 H ALT 240 H Alkaline Phosphatase 129 H Total Protein 5.2 L Albumin 2.2 L Cortisol PM Sample ACTH Stool Occult Blood Hepatitis A IgM Ab Negative Hep Bs Antigen Negative Hep B Core IgM Ab Negative Hepatitis C Antibody 0.2 Blood Type Antibody Screen Crossmatch 07/12/18 07/12/18 07/13/18 22:13 22:20 02:13 WBC 22.4 H RBC 2.19 L Hgb 7.3 L Hct 22.6 L MCV 103.1 H MCH 33.5 MCHC 32.5 RDW 18.4 H Plt Count 283 MPV 9.0 Absolute Neuts (auto) Neutrophils % Neutrophils % (Manual) Band Neutrophils % Lymphocytes % Lymphocytes % (Manual) Monocytes % Monocytes % (Manual) Eosinophils % Eosinophils % (Manual) Basophils % Basophils % (Manual) Myelocytes % (Man) Promyelocytes % (Man) Blast Cells % (Manual) Nucleated RBC % Metamyelocytes Hypochromia Platelet Estimate Polychromasia Poikilocytosis Anisocytosis Microcytosis Macrocytosis Ovalocytes Acanthocytes (Spur) Schistocytes PT with INR INR Anticoagulation Therapy Puncture Site ABG pH ABG pCO2 at Pt Temp ABG pO2 at Pt Temp ABG HCO3 ABG O2 Sat (Measured) ABG O2 Content ABG Base Excess Jaret Test O2 Delivery Device Oxygen Flow Rate Vent Mode Vent Rate Mechanical Rate Pressure Support Vent Sodium Potassium Chloride Carbon Dioxide Anion Gap BUN Creatinine Creat Clearance w eGFR POC Glucometer [phone] Random Glucose Lactic Acid Calcium Phosphorus Magnesium Total Bilirubin AST ALT Alkaline Phosphatase Total Protein Albumin Cortisol PM Sample ACTH Stool Occult Blood Hepatitis A IgM Ab Hep Bs Antigen Hep B Core IgM Ab Hepatitis C Antibody Blood Type Antibody Screen Crossmatch 07/13/18 07/13/18 07/13/18 05:11 05:30 05:30 WBC 19.5 H RBC 1.93 L Hgb 6.5 L* Hct 19.9 L MCV 103.0 H MCH 33.7 MCHC 32.7 RDW 17.7 H Plt Count 219 D MPV 8.6 Absolute Neuts (auto) 18.4 H Neutrophils % 94.3 H Neutrophils % (Manual) 92.0 H Band Neutrophils % 3.0 Lymphocytes % 2.2 L D Lymphocytes % (Manual) 2.0 L D Monocytes % 3.3 L Monocytes % (Manual) 3 L Eosinophils % 0.1 D Eosinophils % (Manual) 0.0 Basophils % 0.1 Basophils % (Manual) 0.0 Myelocytes % (Man) 0 Promyelocytes % (Man) 0 Blast Cells % (Manual) 0 Nucleated RBC % 0 Metamyelocytes 0 Hypochromia 0 Platelet Estimate Normal Polychromasia 0 Poikilocytosis 3+ Anisocytosis 1+ Microcytosis 1+ Macrocytosis 1+ Ovalocytes 1+ Acanthocytes (Spur) 1+ Schistocytes 1+ PT with INR INR Anticoagulation Therapy Puncture Site ABG pH ABG pCO2 at Pt Temp ABG pO2 at Pt Temp ABG HCO3 ABG O2 Sat (Measured) ABG O2 Content ABG Base Excess Jaret Test O2 Delivery Device Oxygen Flow Rate Vent Mode Vent Rate Mechanical Rate Pressure Support Vent Sodium 142 Potassium 3.9 Chloride 111 H Carbon Dioxide 22 Anion Gap 9 BUN 50 H Creatinine 1.1 Creat Clearance w eGFR > 60 POC Glucometer [phone] Random Glucose 169 H Lactic Acid Calcium 7.5 L Phosphorus 4.0 Magnesium 2.5 H Total Bilirubin 0.5 AST 312 H ALT 219 H Alkaline Phosphatase 115 Total Protein 4.7 L Albumin 1.9 L Cortisol PM Sample ACTH Stool Occult Blood Hepatitis A IgM Ab Hep Bs Antigen Hep B Core IgM Ab Hepatitis C Antibody Blood Type Antibody Screen Crossmatch 07/13/18 07/13/18 07/13/18 05:30 05:30 06:30 WBC RBC Hgb Hct MCV MCH MCHC RDW Plt Count MPV Absolute Neuts (auto) Neutrophils % Neutrophils % (Manual) Band Neutrophils % Lymphocytes % Lymphocytes % (Manual) Monocytes % Monocytes % (Manual) Eosinophils % Eosinophils % (Manual) Basophils % Basophils % (Manual) Myelocytes % (Man) Promyelocytes % (Man) Blast Cells % (Manual) Nucleated RBC % Metamyelocytes Hypochromia Platelet Estimate Polychromasia Poikilocytosis Anisocytosis Microcytosis Macrocytosis Ovalocytes Acanthocytes (Spur) Schistocytes PT with INR 19.50 H INR 1.64 H Anticoagulation Therapy No Result Required. Puncture Site Right radial ABG pH 7.30 L ABG pCO2 at Pt Temp 42.3 D ABG pO2 at Pt Temp 155.0 H* D ABG HCO3 20.1 L ABG O2 Sat (Measured) 99.4 H ABG O2 Content 8.3 L* ABG Base Excess -5.3 L Jaret Test Positive O2 Delivery Device No Result Required. Oxygen Flow Rate Yes Vent Mode No Result Required. Vent Rate No Result Required. Mechanical Rate No Result Required. Pressure Support Vent No Result Required. Sodium Potassium Chloride Carbon Dioxide Anion Gap BUN Creatinine Creat Clearance w eGFR POC Glucometer Random Glucose Lactic Acid 1.3 Calcium Phosphorus Magnesium Total Bilirubin AST ALT Alkaline Phosphatase Total Protein Albumin Cortisol PM Sample ACTH Stool Occult Blood Hepatitis A IgM Ab Hep Bs Antigen Hep B Core IgM Ab Hepatitis C Antibody Blood Type Antibody Screen Crossmatch 07/13/18 07/13/18 07/13/18 08:10 08:10 10:46 WBC RBC Hgb Hct MCV MCH MCHC RDW Plt Count MPV Absolute Neuts (auto) Neutrophils % Neutrophils % (Manual) Band Neutrophils % Lymphocytes % Lymphocytes % (Manual) Monocytes % Monocytes % (Manual) Eosinophils % Eosinophils % (Manual) Basophils % Basophils % (Manual) Myelocytes % (Man) Promyelocytes % (Man) Blast Cells % (Manual) Nucleated RBC % Metamyelocytes Hypochromia Platelet Estimate Polychromasia Poikilocytosis Anisocytosis Microcytosis Macrocytosis Ovalocytes Acanthocytes (Spur) Schistocytes PT with INR 18.70 H INR 1.58 H Anticoagulation Therapy Puncture Site ABG pH ABG pCO2 at Pt Temp ABG pO2 at Pt Temp ABG HCO3 ABG O2 Sat (Measured) ABG O2 Content ABG Base Excess Jaret Test O2 Delivery Device Oxygen Flow Rate Vent Mode Vent Rate Mechanical Rate Pressure Support Vent Sodium Potassium Chloride Carbon Dioxide Anion Gap BUN Creatinine Creat Clearance w eGFR POC Glucometer [phone] Random Glucose Lactic Acid Calcium Phosphorus Magnesium Total Bilirubin AST ALT Alkaline Phosphatase Total Protein Albumin Cortisol PM Sample ACTH Stool Occult Blood Hepatitis A IgM Ab Hep Bs Antigen Hep B Core IgM Ab Hepatitis C Antibody Blood Type O POSITIVE Antibody Screen Negative Crossmatch See Detail Active Medications Generic Name Dose Route Start Last Admin Trade Name Freq PRN Reason Stop Dose Admin Al Hydroxide/Mg Hydroxide 30 ml 07/10/18 19:52 Mylanta Oral Suspension - PO Q6H PRN INDIGESTION Albuterol/Ipratropium 1 amp 07/10/18 20:15 07/13/18 11:05 Duoneb - NEB 1 amp RQID AYDIN Administration Atorvastatin Calcium 40 mg 07/12/18 22:00 07/12/18 21:55 Lipitor - NGT 40 mg HS AYDIN Administration Chlorhexidine Gluconate 1 applic 07/10/18 22:00 07/12/18 21:55 Hibiclens For Decolonization - TP 1 applic HS AYDIN Administration Clonazepam 0.5 mg 07/10/18 22:00 07/13/18 10:03 Klonopin - PO 0.5 mg BID AYDIN Administration Docusate Sodium 200 mg 07/10/18 22:00 07/12/18 21:55 Colace - PO Not Given HS AYDIN Ferrous Sulfate 325 mg 07/11/18 10:00 07/13/18 10:02 Feosol - PO 325 mg DAILY AYDIN Administration Fludrocortisone Acetate 0.05 mg 07/12/18 16:30 07/13/18 10:01 Florinef - NGT 0.05 mg DAILY AYDIN Administration Hydrocortisone Sodium Succinate 25 mg 07/13/18 15:00 Solu-Cortef - IVPB Q6H-IV AYDIN Piperacillin Sod/Tazobactam 50 mls @ 100 mls/hr 07/11/18 02:00 07/13/18 10:04 Sod 3.375 gm/ Dextrose IVPB 100 mls/hr Q8H-IV AYDIN Administration Protocol Norepinephrine Bitartrate 8, 500 mls @ 18.75 mls/hr 07/11/18 05:45 07/13/18 13:35 000 mcg/ Dextrose IV 5 mcg/min TITR AYDIN 18.75 mls/hr Titration Protocol 5 MCG/MIN Propofol 1,000,000 mcg in 100 mls @ 2.303 mls/hr 07/12/18 12:15 07/13/18 13: 20 Diprivan - IVPB Not Given TITR AYDIN Protocol 5 MCG/KG/MIN Vancomycin HCl 1,250 mg/ 250 mls @ 166.667 mls/hr 07/12/18 15:00 07/12/18 15: 51 Dextrose IVPB 166.667 mls/hr Q24H AYDIN Administration Protocol Pantoprazole Sodium 80 mg/ 100 mls @ 10 mls/hr 07/13/18 07:30 07/13/18 11:57 Sodium Chloride IVPB 10 mls/hr Q10H AYDIN Administration 8 MG/HR Lactated Ringer's 1,000 ml in 1,000 mls @ 50 mls/hr 07/13/18 08:15 07/13/18 11:00 Lactated Ringers Solution IV 50 mls/hr ASDIR AYDIN Administration Insulin Aspart 1 vial 07/13/18 02:00 07/13/18 10:48 Novolog Vial Sliding Scale - SQ 2 units Q4HPO AYDIN Administration Protocol Levothyroxine Sodium 25 mcg 07/12/18 10:00 07/13/18 10:03 Synthroid Injection - IVPUSH 25 mcg DAILY AYDIN Administration Mupirocin 1 applic 07/10/18 22:00 07/13/18 10:02 Bactroban Ointment (For Decolonization) - NS 07/15/18 21:59 1 applic BID AYDIN Administration Polyethylene Glycol 17 gm 07/10/18 22:00 07/13/18 10:03 Miralax (For Daily Use) - PO Not Given BID AYDIN Senna 2 tab 07/10/18 22:00 07/12/18 21:56 Senna - PO Not Given HS AYDIN ASSESSMENT/PLAN: Patient is an 83 year old male with significant past medical history of sys/ diastolic CHF; COPD; HTN; HLD; CAD (s/p stenting x7 and pacemaker); Atrial Fibrillation; DM; chronic venous insufficiency; BPH s/p TURP; CKD; anemia for B/ L leg pain and abnormal gait was sent from [facility] for evaluation of B/L lower extremity pain. #Infectious Disease 1)Septic shock likely secondary to cellulitis of B/L Lower extremity and sacral ulcer -On arrival, BP: 88/75mmHg, Temp 88.6 with normal pulse and saturating 100 % in RA -In the ED, IV NS boluses given with minimal response on BP. -Central line placed, patient started on vasopressors. -Titrating down Levophed to 2.5 -Titrate pressors to maintain MAP >65 -CVP monitoring q12h. -IV Solu-cortef decreased to 25mg q6h -Fludrocortisone 0.05mg OGT daily -ID (Dr. Thomas) consulted. Recommendations appreciated. -Continue Vancomycin 1250mg daily Day 3 and Zosyn 3.375 q8h Day 4 -IV LR @50ml/hr -monitor neuro status -Wound cultures - Presumptive Pseudomonas, Lactose fermenting GNB, Presumptive MRSA, Group D Strep or Enterococcus -Contact isolation precautions -Dr. Estrada consulted. Recommendations appreciated. -Air mattress recommended. -Ensure off-loading to all bony areas with Allevyn/Optifoam -Clean open wounds with normal saline and apply Silvadene -Continue antibiotics. -Podiatry(Dr. Greene) consulted for avulsed L great toe nail. -Heel pads b/l. Will debride nail left hallux. 2)Lactic acidosis: likely 2/2 sepsis, resolved -Lactic acid 2.8 --> 1.5 -IV fluid bolus given. On standing IV LR @50 #Pulmonology 1)Acute Hypoxic and Hypercapneic respiratory failure: Likely 2/2 Pneumonia and Sepsis -Intubated. On volume AC: 12/440/50/5 -Sedated on propofol drip. -On IV Vanc/Zosyn. -OG tube placed. 2)COPD -Duoneb QID 3)Obstructive Sleep Apnea -intubated #Endocrinology 1)Hypothyroidism -TSH elevated 14.8 --> 13.2 -free T4 0.8 -Hypotension, hypothermia, hypoglycemia likely 2/2 sepsis. -Endocrinology (Dr. Neshiwat) consulted. Recommendations appreciated. -IV synthroid 25mcg daily until able to take PO -IV fluid for rehydration -IV antibiotic -IV steroid adrenal support 2)Diabetes Mellitus -A1c - 6.8 -Insulin sliding scale implemented -BGM ACHS -will monitor hypoglycemia #Cardiovascular 1)Systolic/Diastolic CHF: not on exacerbation -BNP 1180. -Echocardiogram done. -Hold Lasix for now -Gentle hydration on IV LR @50ml/hr 2)Prolonged QTc: 614 -Avoid medications causing prolonged QTc. -Repeat EKG: QTc 535 3)CAD (s/p stenting x7 and pacemaker) -Continue [id number] PO HS -On Xarelto 20mg daily 4)Hypertension -hold home anti-hypertensive medications -On Levophed -Titrate pressors to maintain MAP >65 -on IVF 5)Hyperlipidemia -Lipitor 40mg PO HS 6)Atrial Fibrillation: rate controlled -On Xarelto 20mg daily #Gastroenterology 1)Transaminitis likely 2/2 sepsis -AST 456 ALT 238 Alkaline phosphatase 149 -Liver ultrasound done- Right pleural effusion and trace ascites. Thick walled gallbladder with biliary sludge. -Hepatitis panel. -will continue to monitor 2)Coffee ground-containing gastric aspirate likely 2/2 acute gastritis -GI consulted. Recommendations appreciated. -Likely related to gastric retention in setting of septic shock along with component of stress gastritis -Given overall clinical picture, opting for conservative management without endoscopic intervention planned -Continue PPI drip, D/C after 48 hours if no overt bleeding and continue 40mg IVPB daily -Avoid NSAIDs #Nephrology 1)CKD -elevated BUN likely 2/2 to dehydration -IVF given 2)Hyperkalemia, resolved -K 3.9 today -will continue to monitor #Hematology 1)Macrocytic anemia -H/H 6.5/19.9 -Transfused 1 unit pRBC -monitor CBC #FEN -IV LR @50ml/hr -Routine bmp monitoring -OG tube feeding. #Prophylaxis 1)DVT - on Xarelto 20mg daily 2)GI - Protonix drip #Disposition -full code -Palliative care on board. -ICU for closer monitoring Visit type - Emergency Visit Emergency Visit: Yes ED Registration Date: 07/10/18 Care time: The patient presented to the Emergency Department on the above date and was hospitalized for further evaluation of their emergent condition. - New Patient This patient is new to me today: Yes Date on this admission: 07/13/18 - Critical Care Critical Care patient: Yes Total Critical Care Time (in minutes): 40 Critical Care Statement: The care of this patient involved high complexity decision making to prevent further life threatening deterioration of the patient 's condition and/or to evaluate & treat vital organ system(s) failure or risk of failure.
--- NOTE | 2018-07-13 14:58 | PN ---
Progress Note, Physician History of Present Illness: continues to be intubated patient again became hypothermic still intubated continues to be on pressors echo results noted - Current Medication List Current Medications: Active Medications Al Hydroxide/Mg Hydroxide (Mylanta Oral Suspension -) 30 ml PO Q6H PRN PRN Reason: INDIGESTION Albuterol/Ipratropium (Duoneb -) 1 amp NEB RQID AYDIN Last Admin: 07/13/18 11:05 Dose: 1 amp Atorvastatin Calcium (Lipitor -) 40 mg NGT HS AYDIN Last Admin: 07/12/18 21:55 Dose: 40 mg Chlorhexidine Gluconate (Hibiclens For Decolonization -) 1 applic TP HS [facility] Last Admin: 07/12/18 21:55 Dose: 1 applic Clonazepam (Klonopin -) 0.5 mg PO BID AYDIN Last Admin: 07/13/18 10:03 Dose: 0.5 mg Docusate Sodium (Colace -) 200 mg PO HS [facility] Last Admin: 07/12/18 21:55 Dose: Not Given Ferrous Sulfate (Feosol -) 325 mg PO DAILY AYDIN Last Admin: 07/13/18 10:02 Dose: 325 mg Fludrocortisone Acetate (Florinef -) 0.05 mg NGT DAILY AYDIN Last Admin: 07/13/18 10:01 Dose: 0.05 mg Hydrocortisone Sodium Succinate (Solu-Cortef -) 25 mg IVPB Q6H-IV AYDIN Piperacillin Sod/Tazobactam (Sod 3.375 gm/ Dextrose) 50 mls @ 100 mls/hr IVPB Q8H-IV AYDIN; Protocol Last Admin: 07/13/18 10:04 Dose: 100 mls/hr Norepinephrine Bitartrate 8, (000 mcg/ Dextrose) 500 mls @ 18.75 mls/hr IV TITR AYDIN; Protocol Last Titration: 07/13/18 13:35 Dose: 5 mcg/min, 18.75 mls/hr Propofol (Diprivan -) 1,000,000 mcg in 100 mls @ 2.303 mls/hr IVPB TITR AYDIN; Protocol Last Admin: 07/13/18 13:20 Dose: Not Given Vancomycin HCl 1,250 mg/ (Dextrose) 250 mls @ 166.667 mls/hr IVPB Q24H AYDIN; Protocol Last Admin: 07/12/18 15:51 Dose: 166.667 mls/hr Pantoprazole Sodium 80 mg/ (Sodium Chloride) 100 mls @ 10 mls/hr IVPB Q10H [facility] Last Admin: 07/13/18 11:57 Dose: 10 mls/hr Lactated Ringer's (Lactated Ringers Solution) 1,000 ml in 1,000 mls @ 50 mls/ hr IV ASDIR [facility] Last Admin: 07/13/18 11:00 Dose: 50 mls/hr Insulin Aspart (Novolog Vial Sliding Scale -) 1 vial SQ Q4HPO [facility]; Protocol Last Admin: 07/13/18 10:48 Dose: 2 units Levothyroxine Sodium (Synthroid Injection -) 25 mcg IVPUSH DAILY [facility] Last Admin: 07/13/18 10:03 Dose: 25 mcg Mupirocin (Bactroban Ointment (For Decolonization) -) 1 applic NS BID [facility] Stop: 07/15/18 21:59 Last Admin: 07/13/18 10:02 Dose: 1 applic Polyethylene Glycol (Miralax (For Daily Use) -) 17 gm PO BID [facility] Last Admin: 07/13/18 10:03 Dose: Not Given Senna (Senna -) 2 tab PO HS [facility] Last Admin: 07/12/18 21:56 Dose: Not Given - Objective Vital Signs: Vital Signs Temperature 95.4 F L 07/13/18 13:00 Pulse Rate 60 07/13/18 13:35 Respiratory Rate 12 07/13/18 14:46 Blood Pressure 91/54 L 07/13/18 13:35 O2 Sat by Pulse Oximetry (%) 100 07/13/18 09:04 Constitutional: Yes: Other Cardiovascular: Yes: Regular Rate and Rhythm Respiratory: Yes: Intubated, Mechanically Ventilated Gastrointestinal: Yes: Normal Bowel Sounds, Soft Musculoskeletal: Yes: WNL Extremities: Yes: Erythema (b/l present), Other Neurological: Yes: Other Labs: CBC, BMP 07/13/18 05:30 07/13/18 05:30 INR, PTT INR 1.58 (0.83-1.09) H 07/13/18 08:10 Fibrinogen 423.0 mg/dL (238-498) 07/12/18 05:30 Assessment/Plan septic shock Systolic / Diastolic CHF COPD HTN HLD CAD PPM Atrial Fibrillation DM Chronic venous insufficiency BPH s/p TURP CKD Anemia plan continue abx iv fluids wound care rest as per icu hydration cc 40 min
[2018-07-13] MEDS: VANCOMYCIN 1,250 MG in DEXTROSE 5%-WATER - 250 ML IVPB SCH (15:08)
--- NOTE | 2018-07-13 16:54 | PN ---
Progress Note (short form) - Note Progress Note: FUV left big toe. +onycholysis, -cellulitis, -mal odor, onycholysis Debride nail left hallux. Resolved nail onycholysis. Will follow.
--- NOTE | 2018-07-13 18:23 | PN ---
Physical Exam: SUBJECTIVE: Patient seen and examined this morning in the ICU. Was intubated yesterday and OG Tube placed. Coffee-ground gastric aspirate from OG Tube overnight as per nursing staff. Tube feeds held. OBJECTIVE: Vital Signs Period Temp Pulse Resp BP Sys/Kuo Pulse Ox Last 24 Hr 92.3 F-97.7 F 59-60 11-112 91-129/54-72 100-100 GENERAL: Intubated and Sedated HEAD: NCAT EYES: Pinpoint pupils, Dry membranes NECK: B/L JVD, Right Sided IJ Placed LUNGS: Scattered Rhonchi HEART: Regular rate and rhythm, normal S1 and S2, LLSB Murmur ABDOMEN: Soft, nontender, not distended, normoactive bowel sounds BACK: Stage 2 ulcer superior to the gluteal fold without active drainage or surrounding erythema EXTREMITIES: 2+ pulses, Lower extremity pitting edema improving. Multiple, Lower extremity wounds without active drainage, Erythema and warmth continues to improve. Laboratory Results - last 24 hr 07/10/18 07/11/18 07/12/18 13:20 05:30 08:10 WBC RBC Hgb Hct MCV MCH MCHC RDW Plt Count MPV Absolute Neuts (auto) Neutrophils % Neutrophils % (Manual) Band Neutrophils % Lymphocytes % Lymphocytes % (Manual) Monocytes % Monocytes % (Manual) Eosinophils % Eosinophils % (Manual) Basophils % Basophils % (Manual) Myelocytes % (Man) Promyelocytes % (Man) Blast Cells % (Manual) Nucleated RBC % Metamyelocytes Hypochromia Platelet Estimate Polychromasia Poikilocytosis Anisocytosis Microcytosis Macrocytosis Ovalocytes Acanthocytes (Spur) Schistocytes PT with INR INR Anticoagulation Therapy Puncture Site ABG pH ABG pCO2 at Pt Temp ABG pO2 at Pt Temp ABG HCO3 ABG O2 Sat (Measured) ABG O2 Content ABG Base Excess Jaret Test O2 Delivery Device Oxygen Flow Rate Vent Mode Vent Rate Mechanical Rate Pressure Support Vent Sodium Potassium Chloride Carbon Dioxide Anion Gap BUN Creatinine Creat Clearance w eGFR POC Glucometer Random Glucose Lactic Acid Calcium Phosphorus Magnesium Total Bilirubin AST ALT Alkaline Phosphatase Total Protein Albumin Cortisol PM Sample 99.5 H ACTH 5.5 L Stool Occult Blood Positive Hepatitis A IgM Ab Hep Bs Antigen Hep B Core IgM Ab Hepatitis C Antibody Blood Type Antibody Screen Crossmatch 11/07/18 11/07/18 11/07/18 11:00 16:53 17:30 WBC RBC Hgb Hct MCV MCH MCHC RDW Plt Count MPV Absolute Neuts (auto) Neutrophils % Neutrophils % (Manual) Band Neutrophils % Lymphocytes % Lymphocytes % (Manual) Monocytes % Monocytes % (Manual) Eosinophils % Eosinophils % (Manual) Basophils % Basophils % (Manual) Myelocytes % (Man) Promyelocytes % (Man) Blast Cells % (Manual) Nucleated RBC % Metamyelocytes Hypochromia Platelet Estimate Polychromasia Poikilocytosis Anisocytosis Microcytosis Macrocytosis Ovalocytes Acanthocytes (Spur) Schistocytes PT with INR INR Anticoagulation Therapy Puncture Site ABG pH ABG pCO2 at Pt Temp ABG pO2 at Pt Temp ABG HCO3 ABG O2 Sat (Measured) ABG O2 Content ABG Base Excess Jaret Test O2 Delivery Device Oxygen Flow Rate Vent Mode Vent Rate Mechanical Rate Pressure Support Vent Sodium 140 Potassium 4.4 Chloride 108 H Carbon Dioxide 21 Anion Gap 10 BUN 57 H Creatinine 1.3 Creat Clearance w eGFR 52.72 POC Glucometer [phone] Random Glucose 256 H Lactic Acid Calcium 7.5 L Phosphorus Magnesium Total Bilirubin 0.6 AST 421 H ALT 240 H Alkaline Phosphatase 129 H Total Protein 5.2 L Albumin 2.2 L Cortisol PM Sample ACTH Stool Occult Blood Hepatitis A IgM Ab Negative Hep Bs Antigen Negative Hep B Core IgM Ab Negative Hepatitis C Antibody 0.2 Blood Type Antibody Screen Crossmatch 07/12/18 07/12/18 07/13/18 22:13 22:20 02:13 WBC 22.4 H RBC 2.19 L Hgb 7.3 L Hct 22.6 L MCV 103.1 H MCH 33.5 MCHC 32.5 RDW 18.4 H Plt Count 283 MPV 9.0 Absolute Neuts (auto) Neutrophils % Neutrophils % (Manual) Band Neutrophils % Lymphocytes % Lymphocytes % (Manual) Monocytes % Monocytes % (Manual) Eosinophils % Eosinophils % (Manual) Basophils % Basophils % (Manual) Myelocytes % (Man) Promyelocytes % (Man) Blast Cells % (Manual) Nucleated RBC % Metamyelocytes Hypochromia Platelet Estimate Polychromasia Poikilocytosis Anisocytosis Microcytosis Macrocytosis Ovalocytes Acanthocytes (Spur) Schistocytes PT with INR INR Anticoagulation Therapy Puncture Site ABG pH ABG pCO2 at Pt Temp ABG pO2 at Pt Temp ABG HCO3 ABG O2 Sat (Measured) ABG O2 Content ABG Base Excess Jaret Test O2 Delivery Device Oxygen Flow Rate Vent Mode Vent Rate Mechanical Rate Pressure Support Vent Sodium Potassium Chloride Carbon Dioxide Anion Gap BUN Creatinine Creat Clearance w eGFR POC Glucometer 299.40092 [phone] Random Glucose Lactic Acid Calcium Phosphorus Magnesium Total Bilirubin AST ALT Alkaline Phosphatase Total Protein Albumin Cortisol PM Sample ACTH Stool Occult Blood Hepatitis A IgM Ab Hep Bs Antigen Hep B Core IgM Ab Hepatitis C Antibody Blood Type Antibody Screen Crossmatch 07/13/18 07/13/18 07/13/18 05:11 05:30 05:30 WBC 19.5 H RBC 1.93 L Hgb 6.5 L* Hct 19.9 L MCV 103.0 H MCH 33.7 MCHC 32.7 RDW 17.7 H Plt Count 219 D MPV 8.6 Absolute Neuts (auto) 18.4 H Neutrophils % 94.3 H Neutrophils % (Manual) 92.0 H Band Neutrophils % 3.0 Lymphocytes % 2.2 L D Lymphocytes % (Manual) 2.0 L D Monocytes % 3.3 L Monocytes % (Manual) 3 L Eosinophils % 0.1 D Eosinophils % (Manual) 0.0 Basophils % 0.1 Basophils % (Manual) 0.0 Myelocytes % (Man) 0 Promyelocytes % (Man) 0 Blast Cells % (Manual) 0 Nucleated RBC % 0 Metamyelocytes 0 Hypochromia 0 Platelet Estimate Normal Polychromasia 0 Poikilocytosis 3+ Anisocytosis 1+ Microcytosis 1+ Macrocytosis 1+ Ovalocytes 1+ Acanthocytes (Spur) 1+ Schistocytes 1+ PT with INR INR Anticoagulation Therapy Puncture Site ABG pH ABG pCO2 at Pt Temp ABG pO2 at Pt Temp ABG HCO3 ABG O2 Sat (Measured) ABG O2 Content ABG Base Excess Jaret Test O2 Delivery Device Oxygen Flow Rate Vent Mode Vent Rate Mechanical Rate Pressure Support Vent Sodium 142 Potassium 3.9 Chloride 111 H Carbon Dioxide 22 Anion Gap 9 BUN 50 H Creatinine 1.1 Creat Clearance w eGFR > 60 POC Glucometer [phone] Random Glucose 169 H Lactic Acid Calcium 7.5 L Phosphorus 4.0 Magnesium 2.5 H Total Bilirubin 0.5 AST 312 H ALT 219 H Alkaline Phosphatase 115 Total Protein 4.7 L Albumin 1.9 L Cortisol PM Sample ACTH Stool Occult Blood Hepatitis A IgM Ab Hep Bs Antigen Hep B Core IgM Ab Hepatitis C Antibody Blood Type Antibody Screen Crossmatch 07/13/18 07/13/18 07/13/18 05:30 05:30 06:30 WBC RBC Hgb Hct MCV MCH MCHC RDW Plt Count MPV Absolute Neuts (auto) Neutrophils % Neutrophils % (Manual) Band Neutrophils % Lymphocytes % Lymphocytes % (Manual) Monocytes % Monocytes % (Manual) Eosinophils % Eosinophils % (Manual) Basophils % Basophils % (Manual) Myelocytes % (Man) Promyelocytes % (Man) Blast Cells % (Manual) Nucleated RBC % Metamyelocytes Hypochromia Platelet Estimate Polychromasia Poikilocytosis Anisocytosis Microcytosis Macrocytosis Ovalocytes Acanthocytes (Spur) Schistocytes PT with INR 19.50 H INR 1.64 H Anticoagulation Therapy No Result Required. Puncture Site Right radial ABG pH 7.30 L ABG pCO2 at Pt Temp 42.3 D ABG pO2 at Pt Temp 155.0 H* D ABG HCO3 20.1 L ABG O2 Sat (Measured) 99.4 H ABG O2 Content 8.3 L* ABG Base Excess -5.3 L Jaret Test Positive O2 Delivery Device No Result Required. Oxygen Flow Rate Yes Vent Mode No Result Required. Vent Rate No Result Required. Mechanical Rate No Result Required. Pressure Support Vent No Result Required. Sodium Potassium Chloride Carbon Dioxide Anion Gap BUN Creatinine Creat Clearance w eGFR POC Glucometer Random Glucose Lactic Acid 1.3 Calcium Phosphorus Magnesium Total Bilirubin AST ALT Alkaline Phosphatase Total Protein Albumin Cortisol PM Sample ACTH Stool Occult Blood Hepatitis A IgM Ab Hep Bs Antigen Hep B Core IgM Ab Hepatitis C Antibody Blood Type Antibody Screen Crossmatch 07/13/18 07/13/18 07/13/18 08:10 08:10 10:46 WBC RBC Hgb Hct MCV MCH MCHC RDW Plt Count MPV Absolute Neuts (auto) Neutrophils % Neutrophils % (Manual) Band Neutrophils % Lymphocytes % Lymphocytes % (Manual) Monocytes % Monocytes % (Manual) Eosinophils % Eosinophils % (Manual) Basophils % Basophils % (Manual) Myelocytes % (Man) Promyelocytes % (Man) Blast Cells % (Manual) Nucleated RBC % Metamyelocytes Hypochromia Platelet Estimate Polychromasia Poikilocytosis Anisocytosis Microcytosis Macrocytosis Ovalocytes Acanthocytes (Spur) Schistocytes PT with INR 18.70 H INR 1.58 H Anticoagulation Therapy Puncture Site ABG pH ABG pCO2 at Pt Temp ABG pO2 at Pt Temp ABG HCO3 ABG O2 Sat (Measured) ABG O2 Content ABG Base Excess Jaret Test O2 Delivery Device Oxygen Flow Rate Vent Mode Vent Rate Mechanical Rate Pressure Support Vent Sodium Potassium Chloride Carbon Dioxide Anion Gap BUN Creatinine Creat Clearance w eGFR POC Glucometer [phone] Random Glucose Lactic Acid Calcium Phosphorus Magnesium Total Bilirubin AST ALT Alkaline Phosphatase Total Protein Albumin Cortisol PM Sample ACTH Stool Occult Blood Hepatitis A IgM Ab Hep Bs Antigen Hep B Core IgM Ab Hepatitis C Antibody Blood Type O POSITIVE Antibody Screen Negative Crossmatch See Detail Microbiology 07/11/18 03:30 Leg - Right Lower Gram Stain - Final 07/11/18 03:30 Leg - Right Lower Wound Culture - Preliminary Presumptive Ps Aeruginosa Klebsiella Oxytoca Presumptive Mrsa (Pbp2a Pos) Group D Strep Or Entero Coccus 07/10/18 12:20 Urine - Urine Clean Catch Urine Culture - Final Staphylococcus Warneri 07/10/18 11:15 Blood - Peripheral Venous Blood Culture - Preliminary NO GROWTH OBTAINED AFTER 72 HOURS, INCUBATION TO CONTINUE FOR 2 DAYS. 07/10/18 11:00 Blood - Peripheral Venous Blood Culture - Preliminary NO GROWTH OBTAINED AFTER 72 HOURS, INCUBATION TO CONTINUE FOR 2 DAYS. Active Medications Al Hydroxide/Mg Hydroxide (Mylanta Oral Suspension -) 30 ml PO Q6H PRN PRN Reason: INDIGESTION Albuterol/Ipratropium (Duoneb -) 1 amp NEB RQID [facility] Last Admin: 07/13/18 16:29 Dose: 1 amp Atorvastatin Calcium (Lipitor -) 40 mg NGT [facility] Last Admin: 07/12/18 21:55 Dose: 40 mg Chlorhexidine Gluconate (Hibiclens For Decolonization -) 1 applic TP [facility] Last Admin: 07/12/18 21:55 Dose: 1 applic Chlorhexidine Gluconate (Peridex -) 15 ml MM BID [facility] Clonazepam (Klonopin -) 0.5 mg PO BID [facility] Last Admin: 07/13/18 10:03 Dose: 0.5 mg Docusate Sodium (Colace -) 200 mg PO [facility] Last Admin: 07/12/18 21:55 Dose: Not Given Ferrous Sulfate (Feosol -) 325 mg PO DAILY [facility] Last Admin: 07/13/18 10:02 Dose: 325 mg Fludrocortisone Acetate (Florinef -) 0.05 mg NGT DAILY [facility] Last Admin: 07/13/18 10:01 Dose: 0.05 mg Hydrocortisone Sodium Succinate (Solu-Cortef -) 25 mg IVPB Q6H-IV [facility] Last Admin: 07/13/18 15:08 Dose: 25 mg Piperacillin Sod/Tazobactam (Sod 3.375 gm/ Dextrose) 50 mls @ 100 mls/hr IVPB Q8H-IV [facility]; Protocol Last Admin: 07/13/18 10:04 Dose: 100 mls/hr Norepinephrine Bitartrate 8, (000 mcg/ Dextrose) 500 mls @ 18.75 mls/hr IV TITR [facility]; Protocol Last Titration: 07/13/18 13:35 Dose: 5 mcg/min, 18.75 mls/hr Propofol (Diprivan -) 1,000,000 mcg in 100 mls @ 2.303 mls/hr IVPB TITR [facility]; Protocol Last Admin: 07/13/18 13:20 Dose: Not Given Vancomycin HCl 1,250 mg/ (Dextrose) 250 mls @ 166.667 mls/hr IVPB Q24H [facility]; Protocol Last Admin: 07/13/18 15:08 Dose: 166.667 mls/hr Pantoprazole Sodium 80 mg/ (Sodium Chloride) 100 mls @ 10 mls/hr IVPB Q10H [facility] Last Admin: 07/13/18 17:19 Dose: Not Given Lactated Ringer's (Lactated Ringers Solution) 1,000 ml in 1,000 mls @ 500 mls/ hr IV ASDIR [facility] Last Admin: 07/13/18 17:17 Dose: Not Given Insulin Aspart (Novolog Vial Sliding Scale -) 1 vial SQ Q4HPO [facility]; Protocol Last Admin: 07/13/18 15:17 Dose: 2 units Levothyroxine Sodium (Synthroid Injection -) 25 mcg IVPUSH DAILY [facility] Last Admin: 07/13/18 10:03 Dose: 25 mcg Mupirocin (Bactroban Ointment (For Decolonization) -) 1 applic NS BID [facility] Stop: 07/15/18 21:59 Last Admin: 07/13/18 10:02 Dose: 1 applic Polyethylene Glycol (Miralax (For Daily Use) -) 17 gm PO BID [facility] Last Admin: 07/13/18 10:03 Dose: Not Given Senna (Senna -) 2 tab PO HS [facility] Last Admin: 07/12/18 21:56 Dose: Not Given IMAGING: -CXR (07/10): The prior study of 06/09/2018, again is a scoliosis with convexity to the right, weak inspiration, multi lead pacemaker, distended bowel in the upper abdomen, previous right shoulder surgery and there are increased left hemithorax markings compatible with some atelectasis and/or infiltrate. Follow- up recommended. -CXR (07/11): Since the prior study of 07/10/2018, there appears to be major consolidation in the left hemithorax with some sparing at the left base. There is a prominent mediastinum with pacemaker and distended bowel in the abdomen. The right lung is clear. There is a scoliosis with convexity to the right. There are degenerative spine and shoulder changes. There are left shoulder calcifications. A follow-up study is suggested with deep inspiration to clarify the left hemithorax changes. The sparing of the left base is unusual and one must make sure this is not a subtle pneumothorax. Again follow-up imaging is suggested -CXR (07/11): Since the prior study of 07/11/2018 at 0704 hours, the left hemithorax is slightly better aerated with still some infiltrate/atelectasis and no sign of a gross pneumothorax. The remainder the study is unchanged -CXR (07/11): Since 1003 hours, new right jugular line has been inserted and the tip is in the right atrium. The remainder the study is unchanged. There is no sign of a pneumothorax. -CXR (07/12): A single AP view of the chest reveals motion artifact, weak inspiration, chin artifact, right jugular line with tip in junction of SVC and right atrium, left-sided double lead pacemaker, sclerotic knob, previous right humeral fracture stabilization with hardware and some congestive changes with atelectasis or infiltrate on the left. There is bowel in the right upper quadrant. Since the prior exam of 07/11/2018, there is no significant change. -CXR (07/12): An AP chest reveals an endotracheal tube, right jugular line and pacemaker. There is a large heart, sclerotic unfolded aorta and congestive changes with bilateral effusions with left base infiltrate or atelectasis. The pulmonary and pleural changes have increased and the endotracheal tube is new since 07/12/2018. An OG tube is not easily delineated in this study. -CXR (07/13): No significant change -Liver US: Right pleural effusion and trace ascites. Thick walled gallbladder with biliary sludge. -DUPLEX US: No evidence of deep venous thrombosis. -CT Head without contrast: No evidence of acute intracranial pathology. -EKG: Ventricular-paced rhythm, VR 60, QTc 614 -ECHO: Technically limited, LV Systolic function is moderately reduced, LV Is not well visualized, RA and LA mildly dilated, Mild to Mod TR, Mild MR, RV systolic pressure normal, Septal motion is consistent with conduction abnormality, Regional wall motion abnormalities cannot be excluded ASSESSMENT/PLAN: 83 y/o M with PMHx of CHF, COPD, HTN, HLD, CAD (s/p stenting x7 and pacemaker), Atrial Fibrillation, DM, chronic venous insufficiency, BPH was BIBEMS from [facility] for [facility]MS and was admitted to the ICU for severe sepsis due to Cellulitus. #Septic Shock -Likely due B/L lower extremity cellulitis, Wound cultures noted above -Lactic acidosis resolved -Sedation via Propofol drip -Bipap D/C'ed, Now Intubated (07/12) on volume AC: 12/440/50/5 -Central Line placed (07/11), Continue on Levophed (2.5 mcg/min) and titrate down -Maintain MAP >65, Titrate pressers as needed, Can starts Vasopressin drip -Bear-Hugger reinstated -CVP monitoring q12h -Continue LR @ 50 mls/hr -Continue Zosyn (Started on 07/10) -Started on Vanco (07/12) -ID (Dr. Thomas) consulted -Blood, urine culture noted above -Hold home Anti-HTN meds -Continue Hydrocortisone, Fludrocortisone -Chest PT -Contact isolation precautions -Vascular surgery (Dr. Estrada) consulted, Appreciate recs -Podiatry (Dr. Greene) consulted #Coffee ground gastric aspirate -Likely due to acute gastritis -OG Tube placed (07/12), tube feeds held -Hgb Reached 6.5 overnight -Give 1 unit pRBCs (07/13) -FOBT Positive -GI Consulted, Appreciate Rec's, D/C PPI drip after 48 hours if no over bleeding and continue 40mg IVPB daily -Conservative management without endoscopic intervention -Home dose Xarelto held #Transaminitis -LFTs trending down; Continue to trend -Liver US noted above -Hepatitis panel #Hyperkalemia -Acidosis resolved -Received Calcium gluconate, D50, Insulin, Repeat EKG -OG Tube placed (07/12); Kayexelate given -Continue to monitor #Elevated TSH -Likely due to Severe Sepsis; Consider Euthyroid Sick Syndrome, Less likely Myxedema coma -Endocrinology (Dr. Duron) Consulted, Appreciate Rec's -TSH Trending down; T3, T4 noted; Cortisol, ACTH pending -Continue on IV synthroid 25mcg Daily -Repeat labs after sepsis clears #AFib -Home dose Xarelto held in the setting of GI Bleed -Home dose Beta humberto held in the setting of Hypotension #DM -ISS, BGMs ACTID -A1c 6.8% -Hold Oral hypoglycemics #FEN -IV LR @ 50 mls/hr -Monitor for Hyperkalemia -Sodium controlled diet Dispo: ICU placement, Full code Visit type - Emergency Visit Emergency Visit: Yes ED Registration Date: 07/10/18 Care time: The patient presented to the Emergency Department on the above date and was hospitalized for further evaluation of their emergent condition. - New Patient This patient is new to me today: No - Critical Care Critical Care patient: No - Discharge Referral Referred to [facility] Med P.C.: No
[2018-07-13] MEDS: DOCUSATE SODIUM 100 MG CAPSULE (FP) PO SCH (21:53)
[2018-07-13] MEDS: ATORVASTATIN CA 40 MG TABLET (FP) NGT SCH (21:54)
[2018-07-13] MEDS: CHLORHEXIDINE GLUCONATE 0.12% 15ML CUP MM SCH (21:55)
[2018-07-13] MEDS: CHLORHEXIDINE GLUCONATE 4% CLEANSER FOR DECOLONIZATION TP SCH (21:56)
[2018-07-13] MEDS: SENNOSIDES 8.6MG TABLET (FP) PO SCH (21:56)
[2018-07-14] MEDS: INSULIN SLIDING SCALE (NOVOLOG) 1 VIAL SQ SCH ×6 (02:00→21:54)
[2018-07-14] MEDS ORDERED: PT OWN MED DRAWER 7, Y5N ONE ×3 (02:16→21:22)
[2018-07-14] MEDS ORDERED: PIPERACILLIN/TAZOBACTAM 3.375 GM VIAL IVPB ONE ×3 (02:30→16:29)
[2018-07-14] MEDS ORDERED: DEXTROSE 5%-WATER - 50 ML IVPB ONE ×3 (02:31→16:30)
[2018-07-14] MEDS: HYDROCORTISONE SOD SUCCINATE 100 MG/2 ML VIAL IVPB SCH ×4 (02:48→21:34)
[2018-07-14] MEDS: PIPERACILLIN/TAZOB 3.375 GM 3.375 GM in DEXTROSE 5%-WATER - 50 ML IVPB SCH ×3 (02:49→17:29)
[2018-07-14] MEDS: NOREPINEPHRINE BITARTRATE 8,000 MCG in DEXTROSE 5%-WATER - 492 ML IV SCH (05:51)
[2018-07-14 06:00] LABS: EOS % 0.1 % (0-4.5); HEMATOCRIT 25.5 % (35.4-49); HEMOGLOBIN 8.5 GM/dL (11.7-16.9); LYMPH % 3.4 % (8-40); MCH 33.5 pg (25.7-33.7); MCHC 33.1 g/dl (32.0-35.9); MEAN CELL VOLUME 101.3 fl (80-96); MEAN PLT VOLUME 8.7 fl (7.5-11.1); MONO % 5.5 % (3.8-10.2); PLATELET COUNT 255 K/MM3 (134-434); RBC 2.52 M/mm3 (4.00-5.60); RDW 18.7 % (11.9-15.9); WHITE BLOOD COUNT 17.9 K/mm3 (4.0-10.0)
[2018-07-14 06:37] LABS: ALBUMIN 1.9 g/dl (3.4-5.0); ALK PHOS 138 U/L (45-117); ANION GAP 6 MMOL/L (8-16); BILIRUBIN,TOTAL 0.4 mg/dL (0.2-1); BLOOD UREA NITROGEN 39 mg/dL (7-18); CALCIUM 7.8 mg/dL (8.5-10.1); CHLORIDE 114 mmol/L (98-107); CO2 24 mmol/L (21-32); CREATININE 1.2 mg/dL (0.55-1.3); GLUCOSE,RANDOM 132 mg/dL (74-106); MAGNESIUM 2.7 mg/dL (1.8-2.4); PHOSPHOROUS 3.4 mg/dL (2.5-4.9); POTASSIUM 4.3 mmol/L (3.5-5.1); SGOT/AST 242 U/L (15-37); SGPT/ALT 217 U/L (13-61); SODIUM 144 mmol/L (136-145)
[2018-07-14 06:40] LABS: ARTERIAL BLD GAS O2 SATURATION 99.3 % (90-98.9); ARTERIAL BLOOD GAS BASE EXCESS -3.6 meq/l (-2-2); ARTERIAL BLOOD GAS PCO2 41.6 mmHg (35-45); ARTERIAL BLOOD GAS pH 7.33 (7.35-7.45)
[2018-07-14 06:50] LABS: ALLENS TEST POSITIVE
[2018-07-14] MEDS: ALBUTEROL SO4 2.5/IPRATROPIUM 0.5 INH SOL 3 ML VIAL.NEB. NEB SCH ×4 (07:30→20:45)
[2018-07-14] MEDS: LEVOTHYROXINE SODIUM 100 MCG VIAL IVPUSH SCH (09:44)
[2018-07-14] MEDS: FLUDROCORTISONE ACETATE 0.1 MG TABLET (FP) NGT SCH (09:45)
[2018-07-14] MEDS: FERROUS SO4 325 MG TABLET (FP) PO SCH (09:45)
[2018-07-14] MEDS: CHLORHEXIDINE GLUCONATE 0.12% 15ML CUP MM SCH ×2 (09:45→21:38)
[2018-07-14] MEDS: POLYETHYLENE GLYCOL 3350 119 GM BTL PO SCH ×2 (09:46→21:37)
[2018-07-14] MEDS: clonazePAM 0.5 MG TABLET PO SCH ×2 (09:46→21:37)
[2018-07-14] MEDS: PROPOFOL 1,000,000 MCG/100 ML VIAL IVPB SCH ×2 (09:46→14:07)
[2018-07-14] MEDS: PANTOPRAZOLE SODIUM 80 MG in SODIUM CHLORIDE 100 ML IVPB SCH ×2 (10:34→21:34)
[2018-07-14] MEDS: MUPIROCIN 2% TOPICAL OINTMENT FOR DECOLONIZATION NS SCH ×2 (10:34→21:35)
[2018-07-14 11:42] LABS: ANISOCYTOSIS 1+; MACROCYTOSIS 1+; PLATELET ESTIMATE NORMAL
--- NOTE | 2018-07-14 11:52 | PN ---
Progress Note, Physician History of Present Illness: patient still hypothermic still intubated and sedated improving - Current Medication List Current Medications: Active Medications Al Hydroxide/Mg Hydroxide (Mylanta Oral Suspension -) 30 ml PO Q6H PRN PRN Reason: INDIGESTION Albuterol/Ipratropium (Duoneb -) 1 amp NEB RQID [facility] Last Admin: 07/14/18 07:30 Dose: 1 amp Atorvastatin Calcium (Lipitor -) 40 mg NGT HS [facility] Last Admin: 07/13/18 21:54 Dose: 40 mg Chlorhexidine Gluconate (Hibiclens For Decolonization -) 1 applic TP HS [facility] Last Admin: 07/13/18 21:56 Dose: 1 applic Chlorhexidine Gluconate (Peridex -) 15 ml MM BID [facility] Last Admin: 07/14/18 09:45 Dose: 15 ml Clonazepam (Klonopin -) 0.5 mg PO BID [facility] Last Admin: 07/14/18 09:46 Dose: Not Given Docusate Sodium (Colace -) 200 mg PO HS [facility] Last Admin: 07/13/18 21:53 Dose: Not Given Ferrous Sulfate (Feosol -) 325 mg PO DAILY [facility] Last Admin: 07/14/18 09:45 Dose: Not Given Fludrocortisone Acetate (Florinef -) 0.05 mg NGT DAILY [facility] Last Admin: 07/14/18 09:45 Dose: Not Given Hydrocortisone Sodium Succinate (Solu-Cortef -) 25 mg IVPB Q6H-IV [facility] Last Admin: 07/14/18 09:43 Dose: 25 mg Piperacillin Sod/Tazobactam (Sod 3.375 gm/ Dextrose) 50 mls @ 100 mls/hr IVPB Q8H-IV [facility]; Protocol Last Admin: 07/14/18 09:43 Dose: 100 mls/hr Norepinephrine Bitartrate 8, (000 mcg/ Dextrose) 500 mls @ 18.75 mls/hr IV TITR [facility]; Protocol Last Titration: 07/14/18 07:50 Dose: 3 mcg/min, 11.25 mls/hr Propofol (Diprivan -) 1,000,000 mcg in 100 mls @ 2.303 mls/hr IVPB TITR [facility]; Protocol Last Admin: 07/14/18 09:46 Dose: 30 mcg/kg/min, 13.819 mls/hr Vancomycin HCl 1,250 mg/ (Dextrose) 250 mls @ 166.667 mls/hr IVPB Q24H [facility]; Protocol Last Admin: 07/13/18 15:08 Dose: 166.667 mls/hr Pantoprazole Sodium 80 mg/ (Sodium Chloride) 100 mls @ 10 mls/hr IVPB Q10H [facility] Last Admin: 07/14/18 10:34 Dose: 10 mls/hr Insulin Aspart (Novolog Vial Sliding Scale -) 1 vial SQ Q4HPO [facility]; Protocol Last Admin: 07/14/18 05:50 Dose: 2 units Levothyroxine Sodium (Synthroid Injection -) 25 mcg IVPUSH DAILY [facility] Last Admin: 07/14/18 09:44 Dose: 25 mcg Mupirocin (Bactroban Ointment (For Decolonization) -) 1 applic NS BID [facility] Stop: 07/15/18 21:59 Last Admin: 07/14/18 10:34 Dose: 1 applic Polyethylene Glycol (Miralax (For Daily Use) -) 17 gm PO BID [facility] Last Admin: 07/14/18 09:46 Dose: Not Given Senna (Senna -) 2 tab PO HS [facility] Last Admin: 07/13/18 21:56 Dose: Not Given - Objective Vital Signs: Vital Signs Temperature 96.5 F L 07/14/18 10:00 Pulse Rate 60 07/14/18 11:00 Respiratory Rate 12 07/14/18 11:18 Blood Pressure 89/53 L 07/14/18 11:00 O2 Sat by Pulse Oximetry (%) 100 07/14/18 10:29 Constitutional: Yes: Other (sedated) Cardiovascular: Yes: Pulse Irregular, S1, S2 Respiratory: Yes: Intubated, Mechanically Ventilated Gastrointestinal: Yes: Normal Bowel Sounds, Soft Musculoskeletal: Yes: WNL Extremities: Yes: Other (b/l cellulittis) Integumentary: Yes: Erythema, Other Neurological: Yes: Other (sedated) Labs: CBC, BMP 07/14/18 05:30 07/14/18 05:30 INR, PTT INR 1.58 (0.83-1.09) H 07/13/18 08:10 Fibrinogen 423.0 mg/dL (238-498) 07/12/18 05:30 Assessment/Plan septic shock Systolic / Diastolic CHF COPD HTN HLD CAD PPM Atrial Fibrillation DM Chronic venous insufficiency BPH s/p TURP CKD Anemia plan continue abx iv fluids wound care rest as per icu hydration please check vanco trough warming as tolerated cc 40 min
--- NOTE | 2018-07-14 12:19 | PN ---
Teaching Attending Note Name of Resident: Capri Erickson ATTENDING PHYSICIAN STATEMENT I saw and evaluated the patient. I reviewed the resident's note and discussed the case with the resident. I agree with the resident's findings and plan as documented. SUBJECTIVE: Patient seen and examined in the ICU. Intubated and sedated. NE at 2 mcq for hemodynamic support. AC Mode of vent. Still on a warming blanket. CXR: increasing pulmonary vascular congestion / effusion Intake & Output 07/11/18 07/12/18 07/13/18 07/14/18 23:59 23:59 23:59 23:59 Intake Total 3810 4919 3022.8 1122 Output Total 1500 3513 231 2797 Balance 2310 3219 2222.8 -228 Weight 169 lb 4 oz 169 lb 176 lb 12.972 oz 179 lb 10.828 oz Last Vital Signs Temp Pulse Resp BP Pulse Ox 96.5 F L 60 12 89/53 L 100 07/14/18 10:00 07/14/18 11:00 07/14/18 11:18 07/14/18 11:00 07/14/18 10:29 Active Medications Al Hydroxide/Mg Hydroxide (Mylanta Oral Suspension -) 30 ml PO Q6H PRN PRN Reason: INDIGESTION Albuterol/Ipratropium (Duoneb -) 1 amp NEB RQID [facility] Last Admin: 07/14/18 11:20 Dose: 1 amp Atorvastatin Calcium (Lipitor -) 40 mg NGT [facility] Last Admin: 07/13/18 21:54 Dose: 40 mg Chlorhexidine Gluconate (Hibiclens For Decolonization -) 1 applic TP [facility] Last Admin: 07/13/18 21:56 Dose: 1 applic Chlorhexidine Gluconate (Peridex -) 15 ml MM BID [facility] Last Admin: 07/14/18 09:45 Dose: 15 ml Clonazepam (Klonopin -) 0.5 mg PO BID [facility] Last Admin: 07/14/18 09:46 Dose: Not Given Docusate Sodium (Colace -) 200 mg PO [facility] Last Admin: 07/13/18 21:53 Dose: Not Given Ferrous Sulfate (Feosol -) 325 mg PO DAILY [facility] Last Admin: 07/14/18 09:45 Dose: Not Given Fludrocortisone Acetate (Florinef -) 0.05 mg NGT DAILY [facility] Last Admin: 07/14/18 09:45 Dose: Not Given Hydrocortisone Sodium Succinate (Solu-Cortef -) 25 mg IVPB Q6H-IV [facility] Last Admin: 07/14/18 09:43 Dose: 25 mg Piperacillin Sod/Tazobactam (Sod 3.375 gm/ Dextrose) 50 mls @ 100 mls/hr IVPB Q8H-IV [facility]; Protocol Last Admin: 07/14/18 09:43 Dose: 100 mls/hr Norepinephrine Bitartrate 8, (000 mcg/ Dextrose) 500 mls @ 18.75 mls/hr IV TITR [facility]; Protocol Last Titration: 07/14/18 07:50 Dose: 3 mcg/min, 11.25 mls/hr Propofol (Diprivan -) 1,000,000 mcg in 100 mls @ 2.303 mls/hr IVPB TITR [facility]; Protocol Last Admin: 07/14/18 09:46 Dose: 30 mcg/kg/min, 13.819 mls/hr Vancomycin HCl 1,250 mg/ (Dextrose) 250 mls @ 166.667 mls/hr IVPB Q24H [facility]; Protocol Last Admin: 07/13/18 15:08 Dose: 166.667 mls/hr Pantoprazole Sodium 80 mg/ (Sodium Chloride) 100 mls @ 10 mls/hr IVPB Q10H [facility] Last Admin: 07/14/18 10:34 Dose: 10 mls/hr Insulin Aspart (Novolog Vial Sliding Scale -) 1 vial SQ Q4HPO [facility]; Protocol Last Admin: 07/14/18 11:56 Dose: Not Given Levothyroxine Sodium (Synthroid Injection -) 25 mcg IVPUSH DAILY [facility] Last Admin: 07/14/18 09:44 Dose: 25 mcg Mupirocin (Bactroban Ointment (For Decolonization) -) 1 applic NS BID [facility] Stop: 07/15/18 21:59 Last Admin: 07/14/18 10:34 Dose: 1 applic Polyethylene Glycol (Miralax (For Daily Use) -) 17 gm PO BID [facility] Last Admin: 07/14/18 09:46 Dose: Not Given Senna (Senna -) 2 tab PO HS [facility] Last Admin: 07/13/18 21:56 Dose: Not Given GENERAL: Intubated and sedated HEAD: Normal with no signs of trauma. EYES: Exophthalmus, EOM intact, no pallor or icterus. EARS, NOSE, THROAT: Ears normal. Dry mucous membranes. NECK: Supple, no JVD. LUNGS: bibasilar rhonchi / rales, no wheeze. HEART: Tachycardic, Regular rate and rhythm, normal S1 and S2 with systolic murmur +. ABDOMEN: Soft, nontender, no organomegaly. MUSCULOSKELETAL: Normal range of motion at all joints. No bony deformities or tenderness. No CVA tenderness. UPPER EXTREMITIES: 2+ pulses, warm, well-perfused. No cyanosis. No clubbing. LOWER EXTREMITIES: B/L erythema of the skin of lower extremities with serosanguinous fluids weeping NEUROLOGICAL: sedated Laboratory Results - last 24 hr 07/13/18 07/13/18 07/13/18 02:13 05:11 10:46 WBC RBC Hgb Hct MCV MCH MCHC RDW Plt Count MPV Absolute Neuts (auto) Neutrophils % Neutrophils % (Manual) Band Neutrophils % Lymphocytes % Lymphocytes % (Manual) Monocytes % Monocytes % (Manual) Eosinophils % Eosinophils % (Manual) Basophils % Basophils % (Manual) Myelocytes % (Man) Promyelocytes % (Man) Blast Cells % (Manual) Nucleated RBC % Metamyelocytes Hypochromia Platelet Estimate Polychromasia Poikilocytosis Anisocytosis Macrocytosis [place] Cells Schistocytes Puncture Site ABG pH ABG pCO2 at Pt Temp ABG pO2 at Pt Temp ABG HCO3 ABG O2 Sat (Measured) ABG O2 Content ABG Base Excess Jaret Test O2 Delivery Device Oxygen Flow Rate Vent Rate PEEP Pressure Support Vent Sodium Potassium Chloride Carbon Dioxide Anion Gap BUN Creatinine Creat Clearance w eGFR POC Glucometer 248.51018 218.93088 170.76794 Random Glucose Calcium Phosphorus Magnesium Total Bilirubin AST ALT Alkaline Phosphatase Total Protein Albumin 07/13/18 07/13/18 07/13/18 15:14 18:19 20:26 WBC RBC Hgb Hct MCV MCH MCHC RDW Plt Count MPV Absolute Neuts (auto) Neutrophils % Neutrophils % (Manual) Band Neutrophils % Lymphocytes % Lymphocytes % (Manual) Monocytes % Monocytes % (Manual) Eosinophils % Eosinophils % (Manual) Basophils % Basophils % (Manual) Myelocytes % (Man) Promyelocytes % (Man) Blast Cells % (Manual) Nucleated RBC % Metamyelocytes Hypochromia Platelet Estimate Polychromasia Poikilocytosis Anisocytosis Macrocytosis Flo Cells Schistocytes Puncture Site ABG pH ABG pCO2 at Pt Temp ABG pO2 at Pt Temp ABG HCO3 ABG O2 Sat (Measured) ABG O2 Content ABG Base Excess Jaret Test O2 Delivery Device Oxygen Flow Rate Vent Rate PEEP Pressure Support Vent Sodium Potassium Chloride Carbon Dioxide Anion Gap BUN Creatinine Creat Clearance w eGFR POC Glucometer 176.13617 240.02539 [phone] Random Glucose Calcium Phosphorus Magnesium Total Bilirubin AST ALT Alkaline Phosphatase Total Protein Albumin 07/14/18 07/14/18 07/14/18 02:14 05:30 05:30 WBC 17.9 H RBC 2.52 L Hgb 8.5 L Hct 25.5 L D MCV 101.3 H MCH 33.5 MCHC 33.1 RDW 18.7 H Plt Count 255 MPV 8.7 Absolute Neuts (auto) 16.3 H Neutrophils % 91.0 H Neutrophils % (Manual) 95.0 H Band Neutrophils % 0.0 Lymphocytes % 3.4 L D Lymphocytes % (Manual) 3.0 L D Monocytes % 5.5 Monocytes % (Manual) 2 L Eosinophils % 0.1 Eosinophils % (Manual) 0.0 Basophils % 0.0 Basophils % (Manual) 0.0 Myelocytes % (Man) 0 Promyelocytes % (Man) 0 Blast Cells % (Manual) 0 Nucleated RBC % 0 Metamyelocytes 0 Hypochromia 1+ Platelet Estimate Normal Polychromasia 0 Poikilocytosis 1+ Anisocytosis 1+ Macrocytosis 1+ Flo Cells 1+ Schistocytes 1+ Puncture Site ABG pH ABG pCO2 at Pt Temp ABG pO2 at Pt Temp ABG HCO3 ABG O2 Sat (Measured) ABG O2 Content ABG Base Excess Jaret Test O2 Delivery Device Oxygen Flow Rate Vent Rate PEEP Pressure Support Vent Sodium 144 Potassium 4.3 Chloride 114 H Carbon Dioxide 24 Anion Gap 6 L BUN 39 H Creatinine 1.2 Creat Clearance w eGFR 57.82 POC Glucometer 208.21344 Random Glucose 132 H Calcium 7.8 L Phosphorus 3.4 Magnesium 2.7 H Total Bilirubin 0.4 AST 242 H ALT 217 H Alkaline Phosphatase 138 H Total Protein 5.0 L Albumin 1.9 L 07/14/18 07/14/1818 05:41 06:20 11:33 WBC RBC Hgb Hct MCV MCH MCHC RDW Plt Count MPV Absolute Neuts (auto) Neutrophils % Neutrophils % (Manual) Band Neutrophils % Lymphocytes % Lymphocytes % (Manual) Monocytes % Monocytes % (Manual) Eosinophils % Eosinophils % (Manual) Basophils % Basophils % (Manual) Myelocytes % (Man) Promyelocytes % (Man) Blast Cells % (Manual) Nucleated RBC % Metamyelocytes Hypochromia Platelet Estimate Polychromasia Poikilocytosis Anisocytosis Macrocytosis Flo Cells Schistocytes Puncture Site Right radial ABG pH 7.33 L ABG pCO2 at Pt Temp 41.6 ABG pO2 at Pt Temp 169.0 H* ABG HCO3 21.4 L ABG O2 Sat (Measured) 99.3 H ABG O2 Content 13.4 L ABG Base Excess -3.6 L Jaret Test Positive O2 Delivery Device Vent Oxygen Flow Rate 40 Vent Rate 12 PEEP 5.0 Pressure Support Vent 440 Sodium Potassium Chloride Carbon Dioxide Anion Gap BUN Creatinine Creat Clearance w eGFR POC Glucometer 161.97556 191.50089 Random Glucose Calcium Phosphorus Magnesium Total Bilirubin AST ALT Alkaline Phosphatase Total Protein Albumin ASSESSMENT/PLAN: Septoc Shock due to tract infection versus Skin pathogens due to LE wounds Systolic / Diastolic CHF COPD HTN HLD CAD S/P PCI x 7 PPM Atrial Fibrillation DM Chronic venous insufficiency BPH s/p TURP CKD Anemia Severe OSAS (RDI 108 per hour / desaturation to 72%) Suspected Euthyroid Sick Syndrome AC Mode of vent ABX coverage per ID Aspiration precautions Strict I & O Aspiration precautions Wean pressors: can give diuretics once off pressors Hydrocortisone / Fludrocortisone for Shock (wean steroids due to GI bleeding and shock is resolving) Glycemic control AC Dr Claudio Critical care time spent in reviewing chart, evaluating patient and formulating plan - 36 minutes.
[2018-07-14] MEDS ORDERED: fentaNYL CITRATE 250 MCG/5 ML VIAL ONE (13:48)
[2018-07-14] MEDS: VANCOMYCIN 1,250 MG in DEXTROSE 5%-WATER - 250 ML IVPB SCH (14:06)
--- NOTE | 2018-07-14 14:33 | PN ---
Physical Exam: SUBJECTIVE: Patient seen and examined this morning in the ICU. No acute overnight events as per nursing staff. No longer having coffee-ground aspirate from OG tube. OBJECTIVE: Vital Signs Period Temp Pulse Resp BP Sys/Kuo Pulse Ox Last 24 Hr 96.2 F-97.9 F 60-60 11-15 88-127/51-71 100-100 GENERAL: Intubated and Sedated HEAD: NCAT EYES: Pinpoint pupils, Dry membranes NECK: B/L JVD, Right Sided IJ Placed LUNGS: Scattered Rhonchi HEART: Regular rate and rhythm, normal S1 and S2, LLSB Murmur ABDOMEN: Soft, nontender, not distended, normoactive bowel sounds BACK: Stage 2 ulcer superior to the gluteal fold without active drainage or surrounding erythema EXTREMITIES: 2+ pulses, Lower extremity pitting edema improving. Multiple, Lower extremity wounds without active drainage, Erythema and warmth continues to improve. Laboratory Results - last 24 hr 07/14/18 07/14/18 07/14/18 02:14 05:30 05:30 WBC 17.9 H RBC 2.52 L Hgb 8.5 L Hct 25.5 L D MCV 101.3 H MCH 33.5 MCHC 33.1 RDW 18.7 H Plt Count 255 MPV 8.7 Absolute Neuts (auto) 16.3 H Neutrophils % 91.0 H Neutrophils % (Manual) 95.0 H Band Neutrophils % 0.0 Lymphocytes % 3.4 L D Lymphocytes % (Manual) 3.0 L D Monocytes % 5.5 Monocytes % (Manual) 2 L Eosinophils % 0.1 Eosinophils % (Manual) 0.0 Basophils % 0.0 Basophils % (Manual) 0.0 Myelocytes % (Man) 0 Promyelocytes % (Man) 0 Blast Cells % (Manual) 0 Nucleated RBC % 0 Metamyelocytes 0 Hypochromia 1+ Platelet Estimate Normal Polychromasia 0 Poikilocytosis 1+ Anisocytosis 1+ Macrocytosis 1+ [place] Cells 1+ Schistocytes 1+ Puncture Site ABG pH ABG pCO2 at Pt Temp ABG pO2 at Pt Temp ABG HCO3 ABG O2 Sat (Measured) ABG O2 Content ABG Base Excess Jaret Test O2 Delivery Device Oxygen Flow Rate Vent Rate PEEP Pressure Support Vent Sodium 144 Potassium 4.3 Chloride 114 H Carbon Dioxide 24 Anion Gap 6 L BUN 39 H Creatinine 1.2 Creat Clearance w eGFR 57.82 POC Glucometer 208.77744 Random Glucose 132 H Calcium 7.8 L Phosphorus 3.4 Magnesium 2.7 H Total Bilirubin 0.4 AST 242 H ALT 217 H Alkaline Phosphatase 138 H Total Protein 5.0 L Albumin 1.9 L 07/14/18 07/14/18 07/14/18 05:41 06:20 11:33 WBC RBC Hgb Hct MCV MCH MCHC RDW Plt Count MPV Absolute Neuts (auto) Neutrophils % Neutrophils % (Manual) Band Neutrophils % Lymphocytes % Lymphocytes % (Manual) Monocytes % Monocytes % (Manual) Eosinophils % Eosinophils % (Manual) Basophils % Basophils % (Manual) Myelocytes % (Man) Promyelocytes % (Man) Blast Cells % (Manual) Nucleated RBC % Metamyelocytes Hypochromia Platelet Estimate Polychromasia Poikilocytosis Anisocytosis Macrocytosis [place] Cells Schistocytes Puncture Site Right radial ABG pH 7.33 L ABG pCO2 at Pt Temp 41.6 ABG pO2 at Pt Temp 169.0 H* ABG HCO3 21.4 L ABG O2 Sat (Measured) 99.3 H ABG O2 Content 13.4 L ABG Base Excess -3.6 L Jaret Test Positive O2 Delivery Device Vent Oxygen Flow Rate 40 Vent Rate 12 PEEP 5.0 Pressure Support Vent 440 Sodium Potassium Chloride Carbon Dioxide Anion Gap BUN Creatinine Creat Clearance w eGFR POC Glucometer 161.13229 191.71921 Random Glucose Calcium Phosphorus Magnesium Total Bilirubin AST ALT Alkaline Phosphatase Total Protein Albumin Microbiology 07/11/18 03:30 Leg - Right Lower Gram Stain - Final 07/11/18 03:30 Leg - Right Lower Wound Culture - Preliminary Pseudomonas Aeruginosa Klebsiella Oxytoca Mr S Aureus Group D Strep Or Entero Coccus 07/10/18 11:15 Blood - Peripheral Venous Blood Culture - Preliminary NO GROWTH OBTAINED AFTER 96 HOURS, INCUBATION TO CONTINUE FOR 1 DAYS. 07/10/18 11:00 Blood - Peripheral Venous Blood Culture - Preliminary NO GROWTH OBTAINED AFTER 96 HOURS, INCUBATION TO CONTINUE FOR 1 DAYS. 07/10/18 12:20 Urine - Urine Clean Catch Urine Culture - Final Staphylococcus Warneri Active Medications Al Hydroxide/Mg Hydroxide (Mylanta Oral Suspension -) 30 ml PO Q6H PRN PRN Reason: INDIGESTION Albuterol/Ipratropium (Duoneb -) 1 amp NEB RQID [facility] Last Admin: 07/14/18 11:20 Dose: 1 amp Atorvastatin Calcium (Lipitor -) 40 mg NGT [facility] Last Admin: 07/13/18 21:54 Dose: 40 mg Chlorhexidine Gluconate (Hibiclens For Decolonization -) 1 applic TP [facility] Last Admin: 07/13/18 21:56 Dose: 1 applic Chlorhexidine Gluconate (Peridex -) 15 ml MM BID [facility] Last Admin: 07/14/18 09:45 Dose: 15 ml Clonazepam (Klonopin -) 0.5 mg PO BID [facility] Last Admin: 07/14/18 09:46 Dose: Not Given Docusate Sodium (Colace -) 200 mg PO HS [facility] Last Admin: 07/13/18 21:53 Dose: Not Given Ferrous Sulfate (Feosol -) 325 mg PO DAILY [facility] Last Admin: 07/14/18 09:45 Dose: Not Given Fludrocortisone Acetate (Florinef -) 0.05 mg NGT [facility] Last Admin: 07/14/18 09:45 Dose: Not Given Hydrocortisone Sodium Succinate (Solu-Cortef -) 25 mg IVPB Q6H-IV [facility] Last Admin: 07/14/18 14:06 Dose: 25 mg Piperacillin Sod/Tazobactam (Sod 3.375 gm/ Dextrose) 50 mls @ 100 mls/hr IVPB Q8H-IV [facility]; Protocol Last Admin: 07/14/18 09:43 Dose: 100 mls/hr Norepinephrine Bitartrate 8, (000 mcg/ Dextrose) 500 mls @ 18.75 mls/hr IV TITR [facility]; Protocol Last Titration: 07/14/18 07:50 Dose: 3 mcg/min, 11.25 mls/hr Propofol (Diprivan -) 1,000,000 mcg in 100 mls @ 2.303 mls/hr IVPB TITR [facility]; Protocol Last Admin: 07/14/18 14:07 Dose: 30 mcg/kg/min, 13.819 mls/hr Vancomycin HCl 1,250 mg/ (Dextrose) 250 mls @ 166.667 mls/hr IVPB Q24H [facility]; Protocol Last Admin: 07/14/18 14:06 Dose: 166.667 mls/hr Pantoprazole Sodium 80 mg/ (Sodium Chloride) 100 mls @ 10 mls/hr IVPB Q10H [facility] Last Admin: 07/14/18 10:34 Dose: 10 mls/hr Insulin Aspart (Novolog Vial Sliding Scale -) 1 vial SQ Q4HPO [facility]; Protocol Last Admin: 07/14/18 11:56 Dose: Not Given Levothyroxine Sodium (Synthroid Injection -) 25 mcg IVPUSH DAILY [facility] Last Admin: 07/14/18 09:44 Dose: 25 mcg Mupirocin (Bactroban Ointment (For Decolonization) -) 1 applic NS BID [facility] Stop: 07/15/18 21:59 Last Admin: 07/14/18 10:34 Dose: 1 applic Polyethylene Glycol (Miralax (For Daily Use) -) 17 gm PO BID [facility] Last Admin: 07/14/18 09:46 Dose: Not Given Senna (Senna -) 2 tab PO HS [facility] Last Admin: 07/13/18 21:56 Dose: Not Given IMAGING: -CXR (07/10): The prior study of 06/09/2018, again is a scoliosis with convexity to the right, weak inspiration, multi lead pacemaker, distended bowel in the upper abdomen, previous right shoulder surgery and there are increased left hemithorax markings compatible with some atelectasis and/or infiltrate. Follow- up recommended. -CXR (07/11): Since the prior study of 07/10/2018, there appears to be major consolidation in the left hemithorax with some sparing at the left base. There is a prominent mediastinum with pacemaker and distended bowel in the abdomen. The right lung is clear. There is a scoliosis with convexity to the right. There are degenerative spine and shoulder changes. There are left shoulder calcifications. A follow-up study is suggested with deep inspiration to clarify the left hemithorax changes. The sparing of the left base is unusual and one must make sure this is not a subtle pneumothorax. Again follow-up imaging is suggested -CXR (07/11): Since the prior study of 07/11/2018 at 0704 hours, the left hemithorax is slightly better aerated with still some infiltrate/atelectasis and no sign of a gross pneumothorax. The remainder the study is unchanged -CXR (07/11): Since 1003 hours, new right jugular line has been inserted and the tip is in the right atrium. The remainder the study is unchanged. There is no sign of a pneumothorax. -CXR (07/12): A single AP view of the chest reveals motion artifact, weak inspiration, chin artifact, right jugular line with tip in junction of SVC and right atrium, left-sided double lead pacemaker, sclerotic knob, previous right humeral fracture stabilization with hardware and some congestive changes with atelectasis or infiltrate on the left. There is bowel in the right upper quadrant. Since the prior exam of 07/11/2018, there is no significant change. -CXR (07/12): An AP chest reveals an endotracheal tube, right jugular line and pacemaker. There is a large heart, sclerotic unfolded aorta and congestive changes with bilateral effusions with left base infiltrate or atelectasis. The pulmonary and pleural changes have increased and the endotracheal tube is new since 07/12/2018. An OG tube is not easily delineated in this study. -CXR (07/13): No significant change -Liver US: Right pleural effusion and trace ascites. Thick walled gallbladder with biliary sludge. -DUPLEX US: No evidence of deep venous thrombosis. -CT Head without contrast: No evidence of acute intracranial pathology. -EKG: Ventricular-paced rhythm, VR 60, QTc 614 -ECHO: Technically limited, LV Systolic function is moderately reduced, LV Is not well visualized, RA and LA mildly dilated, Mild to Mod TR, Mild MR, RV systolic pressure normal, Septal motion is consistent with conduction abnormality, Regional wall motion abnormalities cannot be excluded ASSESSMENT/PLAN: 83 y/o M with PMHx of CHF, COPD, HTN, HLD, CAD (s/p stenting x7 and pacemaker), Atrial Fibrillation, DM, chronic venous insufficiency, BPH was BIBEMS from [facility] for AMS and was admitted to the ICU for severe sepsis due to Cellulitus. #Septic Shock -Likely due B/L lower extremity cellulitis, Wound cultures noted above -Lactic acidosis resolved -Sedation via Propofol drip -Bipap D/C'ed, Intubated (07/12) on volume AC: 12/440/50/5 -Central Line placed (07/11); Levophed (5 mcg/min) this am, discontinued this afternoon by ICU team -Maintain MAP >65, Titrate pressers as needed, Can starts Vasopressin drip -Bear-Hugger reinstated -CVP monitoring q12h -LR D/C'ed -Continue Zosyn (Started on 07/10) -Continue Vanco (07/12); Trough pending tomorrow -ID (Dr. Thomas) consulted -Blood, urine culture noted above -Hold home Anti-HTN meds -Continue Hydrocortisone, Fludrocortisone -Chest PT -Contact isolation precautions -Vascular surgery (Dr. Estrada) consulted, Appreciate recs -Podiatry (Dr. Greene) consulted #Coffee ground gastric aspirate -Likely due to acute gastritis -OG Tube placed (07/12), tube feeds held -Hgb Reached 6.5 overnight -Give 1 unit pRBCs (07/13) -FOBT Positive -GI Consulted, Appreciate Rec's, D/C PPI drip after 48 hours if no over bleeding and continue 40mg IVPB daily -Conservative management without endoscopic intervention -Home dose Xarelto held #Transaminitis -LFTs trending down; Continue to trend -Liver US noted above -Hepatitis panel #Hyperkalemia -Acidosis resolved -Received Calcium gluconate, D50, Insulin, Repeat EKG -OG Tube placed (07/12); Kayexelate given -Continue to monitor #Elevated TSH -Likely due to Severe Sepsis; Consider Euthyroid Sick Syndrome, Less likely Myxedema coma -Endocrinology (Dr. Duron) Consulted, Appreciate Rec's -TSH Trending down; T3, T4 noted; Cortisol, ACTH pending -Continue on IV synthroid 25mcg Daily -Repeat labs after sepsis clears #AFib -Home dose Xarelto held in the setting of GI Bleed -Home dose Beta humberto held in the setting of Hypotension #DM -ISS, BGMs ACTID -A1c 6.8% -Hold Oral hypoglycemics #FEN -LR D/C'ed -Monitor for Hyperkalemia -Sodium controlled diet Dispo: ICU placement CODE STATUS: DNR Visit type - Emergency Visit Emergency Visit: Yes ED Registration Date: 07/10/18 Care time: The patient presented to the Emergency Department on the above date and was hospitalized for further evaluation of their emergent condition. - New Patient This patient is new to me today: No - Critical Care Critical Care patient: No - Discharge Referral Referred to [facility] No
--- NOTE | 2018-07-14 15:44 | PN ---
Physical Exam: SUBJECTIVE: Patient seen and examined at bedside. Patient sedated and intubated. Had fevers overnight, on bharath hugger. No more coffee ground contents on gastric aspirate. On propofol 30, Levophed increased to 5 yesterday afternoon , titrated down this morning to 3 and now off vasopressor. Maintaining MAP >65. [facility] vent: 12/440/30/15. OBJECTIVE: Vital Signs Period Temp Pulse Resp BP Sys/Kuo Pulse Ox Last 24 Hr 96.2 F-97.9 F 60-60 11-15 88-127/51-71 100-100 GENERAL: The patient is intubated and sedated. HEAD: Normal with no signs of trauma. NECK: Trachea midline, full range of motion, supple. LUNGS: +scattered rhonchi bilaterally. HEART: Regular rate and rhythm, S1, S2 without murmur, rub or gallop. ABDOMEN: Soft, nontender, nondistended, normoactive bowel sounds. KOMAL: No hemorrhoids, soft brown stools, no gross blood, no mass or fissures palpated. UPPER EXTREMITIES: 2+ pulses, warm, well-perfused, no edema. LOWER EXTREMITIES: +circumferential erythema and warmth bilaterally from ankle to mid-baker area with minimal serosanguinous weeping lesions. SKIN: Warm, dry, normal turgor, +stage 1 sacral ulcer Laboratory Results - last 24 hr 07/13/18 07/13/18 07/13/18 15:14 18:19 20:26 WBC RBC Hgb Hct MCV MCH MCHC RDW Plt Count MPV Absolute Neuts (auto) Neutrophils % Neutrophils % (Manual) Band Neutrophils % Lymphocytes % Lymphocytes % (Manual) Monocytes % Monocytes % (Manual) Eosinophils % Eosinophils % (Manual) Basophils % Basophils % (Manual) Myelocytes % (Man) Promyelocytes % (Man) Blast Cells % (Manual) Nucleated RBC % Metamyelocytes Hypochromia Platelet Estimate Polychromasia Poikilocytosis Anisocytosis Macrocytosis [place] Cells Schistocytes Puncture Site ABG pH ABG pCO2 at Pt Temp ABG pO2 at Pt Temp ABG HCO3 ABG O2 Sat (Measured) ABG O2 Content ABG Base Excess Jaret Test O2 Delivery Device Oxygen Flow Rate Vent Rate PEEP Pressure Support Vent Sodium Potassium Chloride Carbon Dioxide Anion Gap BUN Creatinine Creat Clearance w eGFR POC Glucometer 176.62779 240.03041 235.47171 Random Glucose Calcium Phosphorus Magnesium Total Bilirubin AST ALT Alkaline Phosphatase Total Protein Albumin 07/14/18 07/14/18 07/14/18 02:14 05:30 05:30 WBC 17.9 H RBC 2.52 L Hgb 8.5 L Hct 25.5 L D MCV 101.3 H MCH 33.5 MCHC 33.1 RDW 18.7 H Plt Count 255 MPV 8.7 Absolute Neuts (auto) 16.3 H Neutrophils % 91.0 H Neutrophils % (Manual) 95.0 H Band Neutrophils % 0.0 Lymphocytes % 3.4 L D Lymphocytes % (Manual) 3.0 L D Monocytes % 5.5 Monocytes % (Manual) 2 L Eosinophils % 0.1 Eosinophils % (Manual) 0.0 Basophils % 0.0 Basophils % (Manual) 0.0 Myelocytes % (Man) 0 Promyelocytes % (Man) 0 Blast Cells % (Manual) 0 Nucleated RBC % 0 Metamyelocytes 0 Hypochromia 1+ Platelet Estimate Normal Polychromasia 0 Poikilocytosis 1+ Anisocytosis 1+ Macrocytosis 1+ [place] Cells 1+ Schistocytes 1+ Puncture Site ABG pH ABG pCO2 at Pt Temp ABG pO2 at Pt Temp ABG HCO3 ABG O2 Sat (Measured) ABG O2 Content ABG Base Excess Jaret Test O2 Delivery Device Oxygen Flow Rate Vent Rate PEEP Pressure Support Vent Sodium 144 Potassium 4.3 Chloride 114 H Carbon Dioxide 24 Anion Gap 6 L BUN 39 H Creatinine 1.2 Creat Clearance w eGFR 57.82 POC Glucometer 208.69358 Random Glucose 132 H Calcium 7.8 L Phosphorus 3.4 Magnesium 2.7 H Total Bilirubin 0.4 AST 242 H ALT 217 H Alkaline Phosphatase 138 H Total Protein 5.0 L Albumin 1.9 L 07/14/18 07/14/18 07/14/18 05:41 06:20 11:33 WBC RBC Hgb Hct MCV MCH MCHC RDW Plt Count MPV Absolute Neuts (auto) Neutrophils % Neutrophils % (Manual) Band Neutrophils % Lymphocytes % Lymphocytes % (Manual) Monocytes % Monocytes % (Manual) Eosinophils % Eosinophils % (Manual) Basophils % Basophils % (Manual) Myelocytes % (Man) Promyelocytes % (Man) Blast Cells % (Manual) Nucleated RBC % Metamyelocytes Hypochromia Platelet Estimate Polychromasia Poikilocytosis Anisocytosis Macrocytosis Flo Cells Schistocytes Puncture Site Right radial ABG pH 7.33 L ABG pCO2 at Pt Temp 41.6 ABG pO2 at Pt Temp 169.0 H* ABG HCO3 21.4 L ABG O2 Sat (Measured) 99.3 H ABG O2 Content 13.4 L ABG Base Excess -3.6 L Jaret Test Positive O2 Delivery Device Vent Oxygen Flow Rate 40 Vent Rate 12 PEEP 5.0 Pressure Support Vent 440 Sodium Potassium Chloride Carbon Dioxide Anion Gap BUN Creatinine Creat Clearance w eGFR POC Glucometer 161.12424 191.08283 Random Glucose Calcium Phosphorus Magnesium Total Bilirubin AST ALT Alkaline Phosphatase Total Protein Albumin Active Medications Generic Name Dose Route Start Last Admin Trade Name Freq PRN Reason Stop Dose Admin Al Hydroxide/Mg Hydroxide 30 ml 07/10/18 19:52 Mylanta Oral Suspension - PO Q6H PRN INDIGESTION Albuterol/Ipratropium 1 amp 07/10/18 20:15 07/14/18 11:20 Duoneb - NEB 1 amp RQID AYDIN Administration Atorvastatin Calcium 40 mg 07/12/18 22:00 07/13/18 21:54 Lipitor - NGT 40 mg HS AYDIN Administration Chlorhexidine Gluconate 1 applic 07/10/18 22:00 07/13/18 21:56 Hibiclens For Decolonization - TP 1 applic HS AYDIN Administration Chlorhexidine Gluconate 15 ml 07/13/18 22:00 07/14/18 09:45 Peridex - MM 15 ml BID AYDIN Administration Clonazepam 0.5 mg 07/10/18 22:00 07/14/18 09:46 Klonopin - PO Not Given BID AYDIN Docusate Sodium 200 mg 07/10/18 22:00 07/13/18 21:53 Colace - PO Not Given HS AYDIN Ferrous Sulfate 325 mg 07/11/18 10:00 07/14/18 09:45 Feosol - PO Not Given DAILY AYDIN Fludrocortisone Acetate 0.05 mg 07/12/18 16:30 07/14/18 09:45 Florinef - NGT Not Given DAILY AYDIN Hydrocortisone Sodium Succinate 25 mg 07/13/18 15:00 07/14/18 14:06 Solu-Cortef - IVPB 25 mg Q6H-IV AYDIN Administration Piperacillin Sod/Tazobactam 50 mls @ 100 mls/hr 07/11/18 02:00 07/14/18 09:43 Sod 3.375 gm/ Dextrose IVPB 100 mls/hr Q8H-IV AYDIN Administration Protocol Norepinephrine Bitartrate 8, 500 mls @ 18.75 mls/hr 07/11/18 05:45 07/14/18 15:29 000 mcg/ Dextrose IV 0 mcg/min TITR AYDIN 0 mls/hr Titration Protocol 5 MCG/MIN Propofol 1,000,000 mcg in 100 mls @ 2.303 mls/hr 07/12/18 12:15 07/14/18 14: 07 Diprivan - IVPB 30 mcg/kg/min TITR AYDIN 13.819 mls/hr Administration Protocol 5 MCG/KG/MIN Vancomycin HCl 1,250 mg/ 250 mls @ 166.667 mls/hr 07/12/18 15:00 07/14/18 14: 06 Dextrose IVPB 166.667 mls/hr Q24H AYDIN Administration Protocol Pantoprazole Sodium 80 mg/ 100 mls @ 10 mls/hr 07/13/18 22:00 07/14/18 10:34 Sodium Chloride IVPB 10 mls/hr Q10H AYDIN Administration 8 MG/HR Insulin Aspart 1 vial 07/13/18 02:00 07/14/18 15:24 Novolog Vial Sliding Scale - SQ 4 units Q4HPO AYDIN Administration Protocol Levothyroxine Sodium 25 mcg 07/12/18 10:00 07/14/18 09:44 Synthroid Injection - IVPUSH 25 mcg DAILY AYDIN Administration Mupirocin 1 applic 07/10/18 22:00 07/14/18 10:34 Bactroban Ointment (For Decolonization) - NS 07/15/18 21:59 1 applic BID AYDIN Administration Polyethylene Glycol 17 gm 07/10/18 22:00 07/14/18 09:46 Miralax (For Daily Use) - PO Not Given BID AYDIN Senna 2 tab 07/10/18 22:00 07/13/18 21:56 Senna - PO Not Given HS AYDIN ASSESSMENT/PLAN: Patient is an 83 year old male with significant past medical history of sys/ diastolic CHF; COPD; HTN; HLD; CAD (s/p stenting x7 and pacemaker); Atrial Fibrillation; DM; chronic venous insufficiency; BPH s/p TURP; CKD; anemia for B/ L leg pain and abnormal gait was sent from [facility] for evaluation of B/L lower extremity pain. #Infectious Disease 1)Septic shock likely secondary to cellulitis of B/L Lower extremity -Levophed discontinued this afternoon. -Maintain MAP >65 -CVP monitoring q12h. -IV Solu-cortef 25mg q6h -Fludrocortisone 0.05mg OGT daily -ID (Dr. Thomas) consulted. Recommendations appreciated. -Continue Vancomycin 1250mg daily Day 5 and Zosyn 3.375 q8h Day 6 -IVF discontinued. -monitor neuro status -Wound cultures - Presumptive Pseudomonas, Lactose fermenting GNB, Presumptive MRSA, Group D Strep or Enterococcus -Contact isolation precautions -Vanc trough tomorrow prior to morning dose. -Dr. Estrada consulted. Recommendations appreciated. -Air mattress recommended. -Ensure off-loading to all bony areas with Allevyn/Optifoam -Clean open wounds with normal saline and apply Silvadene -Continue antibiotics. -Podiatry(Dr. Greene) consulted for avulsed L great toe nail. -Heel pads b/l. Will debride nail left hallux. 2)Lactic acidosis: likely 2/2 sepsis, resolved -Lactic acid 2.8 --> 1.5 -IV fluid bolus PRN. #Pulmonology 1)Acute Hypoxic and Hypercapneic respiratory failure: Likely 2/2 Pneumonia and Sepsis -Intubated. On volume AC: 12/440/30/5 -Sedated on propofol drip. -On IV Vanc/Zosyn. -OG tube placed. 2)COPD -Duoneb QID 3)Obstructive Sleep Apnea -intubated #Endocrinology 1)Hypothyroidism -TSH elevated 14.8 --> 13.2 -free T4 0.8 -Hypotension, hypothermia, hypoglycemia likely 2/2 sepsis. -Endocrinology (Dr. Duron) consulted. Recommendations appreciated. -IV synthroid 25mcg daily until able to take PO -IV fluid for rehydration -IV antibiotic -IV steroid adrenal support 2)Diabetes Mellitus -A1c - 6.8 -Insulin sliding scale implemented -BGM ACHS -will monitor hypoglycemia #Cardiovascular 1)Systolic/Diastolic CHF: not on exacerbation -BNP 1180. -Echocardiogram done. -Hold Lasix for now -Gentle hydration PRN 2)Prolonged QTc: 614 -Avoid medications causing prolonged QTc. -Repeat EKG: QTc 535 3)CAD (s/p stenting x7 and pacemaker) -Continue [id number] PO HS -On Xarelto 20mg daily 4)Hypertension -hold home anti-hypertensive medications -Will monitor BP. Maintain MAP >65 5)Hyperlipidemia -Lipitor 40mg PO HS 6)Atrial Fibrillation: rate controlled -On Xarelto 20mg daily #Gastroenterology 1)Transaminitis likely 2/2 sepsis, improving -LFTs trending down -Liver ultrasound done- Right pleural effusion and trace ascites. Thick walled gallbladder with biliary sludge. -Hepatitis panel. -will continue to monitor 2)Coffee ground-containing gastric aspirate likely 2/2 acute gastritis -GI (Dr. Rodriguez) consulted. Recommendations appreciated. -Likely related to gastric retention in setting of septic shock along with component of stress gastritis -For conservative management without endoscopic intervention planned -Continue Protonix drip to complete 48 hours, then start Protonix 40mg IV daily. -Avoid NSAIDs #Nephrology 1)CKD -elevated BUN likely 2/2 to dehydration -IVF PRN 2)Hyperkalemia, resolved -will continue to monitor #Hematology 1)Macrocytic anemia -H/H 8.5 s/p 1 unit pRBC transfused yesterday. -monitor CBC #FEN -IVF boluses PRN -Routine bmp monitoring -OG tube feeding. #Prophylaxis 1)DVT - on Xarelto 20mg daily 2)GI - Protonix drip #Disposition -full code -Palliative care on board. -ICU for closer monitoring Visit type - Emergency Visit Emergency Visit: Yes ED Registration Date: 07/10/18 Care time: The patient presented to the Emergency Department on the above date and was hospitalized for further evaluation of their emergent condition. - New Patient This patient is new to me today: Yes Date on this admission: 07/15/18 - Critical Care Critical Care patient: Yes Total Critical Care Time (in minutes): 40 Critical Care Statement: The care of this patient involved high complexity decision making to prevent further life threatening deterioration of the patient 's condition and/or to evaluate & treat vital organ system(s) failure or risk of failure.
--- NOTE | 2018-07-14 16:52 | PN ---
GI Progress Note Subjective: No acute events Remains on vent No overt bleeding reported - Objective Vital Signs: Vital Signs Temperature 96.5 F L 07/14/18 15:41 Pulse Rate 60 07/14/18 15:41 Respiratory Rate 17 07/14/18 16:24 Blood Pressure 95/65 07/14/18 15:41 O2 Sat by Pulse Oximetry (%) 100 07/14/18 10:29 Constitutional: Calm Eyes: No: Sclera Icterus Cardiovascular: Yes: Regular Rate and Rhythm Respiratory: Yes: Diminished (at bases b/l) Gastrointestinal Inspection: No: Distention ...Auscultate: Yes: Normoactive Bowel Sounds ...Palpate: No: Tenderness (No grimacing upon palpation) ...Percussion: No: Tympanitic Extremities: Yes: Other (B/L LE wounds) Neurological: Yes: Other (Sedated on vent) Labs: CBC, BMP 07/14/18 05:30 07/14/18 05:30 INR, PTT INR 1.58 (0.83-1.09) H 07/13/18 08:10 Fibrinogen 423.0 mg/dL (238-498) 07/12/18 05:30 Hepatic Panel Total Bilirubin 0.4 mg/dL (0.2-1) 07/14/18 05:30 AST 242 U/L (15-37) H 07/14/18 05:30 ALT 217 U/L (13-61) H 07/14/18 05:30 Alkaline Phosphatase 138 U/L (45-117) H 07/14/18 05:30 Albumin 1.9 g/dl (3.4-5.0) L 07/14/18 05:30 Problem List - Problems (1) Coffee ground emesis Assessment/Plan: No overt bleeding Complete PPI drip then 40mg IVPB daily Code(s): K92.0 - HEMATEMESIS (2) Abnormal liver function tests Assessment/Plan: Transaminases Slowly trending down as is ALP. Clinically patient without signs of acute cholecystitis. Suspect related to sepsis / hypotension. Continue to monitor, avoid hepatotoxic agents. Code(s): R94.5 - ABNORMAL RESULTS OF LIVER FUNCTION STUDIES
--- NOTE | 2018-07-14 20:18 | PN ---
Teaching Attending Note Name of Resident: Gwen Richardson ATTENDING PHYSICIAN STATEMENT I saw and evaluated the patient. I reviewed the resident's note and discussed the case with the resident. I agree with the resident's findings and plan as documented. SUBJECTIVE: Patient continues to be intubated. OBJECTIVE: Vital Signs Temperature 95.4 F L 07/14/18 18:00 Pulse Rate 60 07/14/18 20:00 Respiratory Rate 12 07/14/18 20:00 Blood Pressure 94/57 L 07/14/18 20:00 O2 Sat by Pulse Oximetry (%) 100 07/14/18 10:29 GENERAL: The patient is intubated and sedated. HEAD: Normal with no signs of trauma. NECK: Trachea midline, full range of motion, supple. LUNGS: positive for scattered rhonchi bilaterally. HEART: Regular rate and rhythm, S1, S2 without murmur, rub or gallop. ABDOMEN: Soft, nontender, nondistended, normoactive bowel sounds. EXTREMITIES: 2+ pulses, warm, well-perfused, no edema. SKIN: Warm, dry, normal turgor, +stage 1 sacral ulcer CBCD WBC 17.9 K/mm3 (4.0-10.0) H 07/14/18 05:30 RBC 2.52 M/mm3 (4.00-5.60) L 07/14/18 05:30 Hgb 8.5 GM/dL (11.7-16.9) L 07/14/18 05:30 Hct 25.5 % (35.4-49) L D 07/14/18 05:30 MCV 101.3 fl (80-96) H 07/14/18 05:30 MCHC 33.1 g/dl (32.0-35.9) 07/14/18 05:30 RDW 18.7 % (11.9-15.9) H 07/14/18 05:30 Plt Count 255 K/MM3 (134-434) 07/14/18 05:30 MPV 8.7 fl (7.5-11.1) 07/14/18 05:30 CMP Sodium 144 mmol/L (136-145) 07/14/18 05:30 Potassium 4.3 mmol/L (3.5-5.1) 07/14/18 05:30 Chloride 114 mmol/L (98-107) H 07/14/18 05:30 Carbon Dioxide 24 mmol/L (21-32) 07/14/18 05:30 Anion Gap 6 MMOL/L (8-16) L 07/14/18 05:30 BUN 39 mg/dL (7-18) H 07/14/18 05:30 Creatinine 1.2 mg/dL (0.55-1.3) 07/14/18 05:30 Creat Clearance w eGFR 57.82 (>60) 07/14/18 05:30 Random Glucose 132 mg/dL (74-106) H 07/14/18 05:30 Calcium 7.8 mg/dL (8.5-10.1) L 07/14/18 05:30 Total Bilirubin 0.4 mg/dL (0.2-1) 07/14/18 05:30 AST 242 U/L (15-37) H 07/14/18 05:30 ALT 217 U/L (13-61) H 07/14/18 05:30 Alkaline Phosphatase 138 U/L (45-117) H 07/14/18 05:30 Total Protein 5.0 g/dl (6.4-8.2) L 07/14/18 05:30 Albumin 1.9 g/dl (3.4-5.0) L 07/14/18 05:30 CARDIAC ENZYMES Creatine Kinase 179 IU/L (26-308) 07/10/18 16:00 Troponin I < 0.02 ng/ml (0.00-0.05) 07/10/18 16:00 Current Medications Generic Name Dose Route Start Last Admin Trade Name Samyq PRN Reason Stop Dose Admin Al Hydroxide/Mg Hydroxide 30 ml 07/10/18 19:52 Mylanta Oral Suspension - PO Q6H PRN INDIGESTION Albuterol/Ipratropium 1 amp 07/10/18 20:15 07/14/18 16:31 Duoneb - NEB 1 amp RQID AYDIN Administration Chlorhexidine Gluconate 1 applic 07/10/18 22:00 07/13/18 21:56 Hibiclens For Decolonization - TP 1 applic HS AYDIN Administration Chlorhexidine Gluconate 15 ml 07/13/18 22:00 07/14/18 09:45 Peridex - MM 15 ml BID AYDIN Administration Clonazepam 0.5 mg 07/10/18 22:00 11/09/18 09:46 Klonopin - PO Not Given BID AYDIN Docusate Sodium 200 mg 07/10/18 22:00 07/13/18 21:53 Colace - PO Not Given HS AYDIN Ferrous Sulfate 325 mg 07/11/18 10:00 07/14/18 09:45 Feosol - PO Not Given DAILY AYDIN Fludrocortisone Acetate 0.05 mg 07/12/18 16:30 07/14/18 09:45 Florinef - NGT Not Given DAILY AYDIN Hydrocortisone Sodium Succinate 25 mg 07/13/18 15:00 07/14/18 14:06 Solu-Cortef - IVPB 25 mg Q6H-IV AYDIN Administration Piperacillin Sod/Tazobactam 50 mls @ 100 mls/hr 07/11/18 02:00 07/14/18 17:29 Sod 3.375 gm/ Dextrose IVPB 100 mls/hr Q8H-IV AYDIN Administration Protocol Norepinephrine Bitartrate 8, 500 mls @ 18.75 mls/hr 07/11/18 05:45 07/14/18 15:29 000 mcg/ Dextrose IV 0 mcg/min TITR AYDIN 0 mls/hr Titration Protocol 5 MCG/MIN Propofol 1,000,000 mcg in 100 mls @ 2.303 mls/hr 07/12/18 12:15 07/14/18 14: 07 Diprivan - IVPB 30 mcg/kg/min TITR AYDIN 13.819 mls/hr Administration Protocol 5 MCG/KG/MIN Vancomycin HCl 1,250 mg/ 250 mls @ 166.667 mls/hr 07/12/18 15:00 07/14/18 14: 06 Dextrose IVPB 166.667 mls/hr Q24H AYDIN Administration Protocol Pantoprazole Sodium 80 mg/ 100 mls @ 10 mls/hr 07/13/18 22:00 07/14/18 10:34 Sodium Chloride IVPB 07/15/18 09:00 10 mls/hr Q10H AYDIN Administration 8 MG/HR Insulin Aspart 1 vial 07/14/18 16:30 07/14/18 16:50 Novolog Vial Sliding Scale - SQ Not Given Q6H AYDIN Protocol Levothyroxine Sodium 25 mcg 07/12/18 10:00 07/14/18 09:44 Synthroid Injection - IVPUSH 25 mcg DAILY [facility] Administration Mupirocin 1 applic 07/10/18 22:00 07/14/18 10:34 Bactroban Ointment (For Decolonization) - NS 07/15/18 21:59 1 applic BID [facility] Administration Pantoprazole Sodium 40 mg 07/15/18 10:00 Protonix Iv IVPUSH DAILY [facility] Polyethylene Glycol 17 gm 07/10/18 22:00 07/14/18 09:46 Miralax (For Daily Use) - PO Not Given BID [facility] Senna 2 tab 07/10/18 22:00 07/13/18 21:56 Senna - PO Not Given [facility] Home Medications Medication Instructions Recorded Albuterol 2.5/Ipratropium 0.5 1 neb IH QID 07/10/18 [Duoneb -] Atorvastatin Ca [Lipitor] 40 mg PO HS 07/10/18 Carvedilol [Coreg -] 6.25 mg PO BID 07/10/18 Docusate Sodium [Colace] 200 mg PO HS 07/10/18 Doxazosin Mesylate [Cardura Xl] 8 mg PO HS 07/10/18 Ferrous Sulfate [Feosol] 325 mg PO DAILY 07/10/18 Furosemide [Lasix -] 40 mg PO DAILY 07/10/18 Insulin Aspart [Novolog] 100 unit SQ ACHS 07/10/18 Insulin Detemir [Levemir Flextouch] 10 unit SQ HS 07/10/18 Losartan Potassium [Cozaar -] 50 mg PO DAILY 07/10/18 Mag Hydrox/Al Hydrox/Simeth 30 ml PO Q6H PRN 07/10/18 [Mylanta *Suspension*] Polyethylene Glycol 3350 [Miralax 17 gm PO BID 07/10/18 (For Daily Use) -] Rivaroxaban [Xarelto -] 20 mg PO DAILY 07/10/18 Sennosides [Senna] 17.2 mg PO HS 07/10/18 Silver Sulfadiazine 1% Top Cr 1 applic TP DAILY 07/10/18 [Silvadene -] clonazePAM [Klonopin -] 0.5 mg PO BID 07/10/18 07/11/18 03:30 Leg - Right Lower Gram Stain - Final 07/11/18 03:30 Leg - Right Lower Wound Culture - Preliminary Pseudomonas Aeruginosa Klebsiella Oxytoca Mr S Aureus Enterococcus Faecalis 07/10/18 11:15 Blood - Peripheral Venous Blood Culture - Preliminary NO GROWTH OBTAINED AFTER 96 HOURS, INCUBATION TO CONTINUE FOR 1 DAYS. 07/10/18 11:00 Blood - Peripheral Venous Blood Culture - Preliminary NO GROWTH OBTAINED AFTER 96 HOURS, INCUBATION TO CONTINUE FOR 1 DAYS. 07/10/18 12:20 Urine - Urine Clean Catch Urine Culture - Final Staphylococcus Warneri ASSESSMENT AND PLAN: Patient is a 83 y/o man with h/o CAD, s/p stents, permanent A fib, Systolic heart failure, HTN, HLP, DM , CKD , Anemia, COPD,recent admission for acute CHF exacerbation who was sent from [place] for LE pain and was found to have hypothermia and hypotension # Septic shock : multifactorial due to LE cellulites/hypercapneic respiratory failure; growing the organism as above , continue levophed, cont IVF, On Zosyn , Vancomycin . On stress dose HC # Acute hypoxic, hypercapnic resp failure s/p Intubation . # Hyperkalemia: improved #Abn TFT, Elevated TSH , likely due to sick euthyroid syndrome, will repeat the level post recovery # H/o A fib: On hold Xarelto , intubated. Hold coreg due to hypotension . # H/o CHF: not in acute decompensated CHF now, hold lasix. patient is in ICU DVt Px: SCDs.
[2018-07-14] MEDS: DOCUSATE SODIUM 100 MG CAPSULE (FP) PO SCH (21:36)
[2018-07-14] MEDS: CHLORHEXIDINE GLUCONATE 4% CLEANSER FOR DECOLONIZATION TP SCH (21:37)
[2018-07-14] MEDS: SENNOSIDES 8.6MG TABLET (FP) PO SCH (21:38)
[2018-07-15] MEDS: PIPERACILLIN/TAZOB 3.375 GM 3.375 GM in DEXTROSE 5%-WATER - 50 ML IVPB SCH ×3 (02:56→17:45)
[2018-07-15] MEDS: HYDROCORTISONE SOD SUCCINATE 100 MG/2 ML VIAL IVPB SCH ×4 (03:05→22:03)
[2018-07-15] MEDS: PANTOPRAZOLE SODIUM 80 MG in SODIUM CHLORIDE 100 ML IVPB SCH (03:06)
[2018-07-15] MEDS ORDERED: DEXTROSE 5%-WATER - 50 ML IVPB ONE ×3 (05:27→17:44)
[2018-07-15] MEDS ORDERED: PIPERACILLIN/TAZOBACTAM 3.375 GM VIAL IVPB ONE ×3 (05:27→17:44)
[2018-07-15] MEDS: NOREPINEPHRINE BITARTRATE 8,000 MCG in DEXTROSE 5%-WATER - 492 ML IV SCH (05:29)
[2018-07-15] MEDS: INSULIN SLIDING SCALE (NOVOLOG) 1 VIAL SQ SCH ×4 (05:29→22:45)
[2018-07-15 06:10] LABS: HEMATOCRIT 26.4 % (35.4-49); HEMOGLOBIN 8.5 GM/dL (11.7-16.9); MCH 32.9 pg (25.7-33.7); MCHC 32.4 g/dl (32.0-35.9); MEAN CELL VOLUME 101.7 fl (80-96); MEAN PLT VOLUME 8.6 fl (7.5-11.1); PLATELET COUNT 235 K/MM3 (134-434); RBC 2.59 M/mm3 (4.00-5.60); RDW 18.9 % (11.9-15.9); WHITE BLOOD COUNT 11.5 K/mm3 (4.0-10.0)
[2018-07-15 06:30] LABS: ARTERIAL BLD GAS O2 SATURATION 97.6 % (90-98.9); ARTERIAL BLOOD GAS BASE EXCESS -2.7 meq/l (-2-2); ARTERIAL BLOOD GAS PCO2 39.2 mmHg (35-45); ARTERIAL BLOOD GAS pH 7.36 (7.35-7.45)
[2018-07-15 06:33] LABS: ALBUMIN 1.9 g/dl (3.4-5.0); ALK PHOS 131 U/L (45-117); ANION GAP 6 MMOL/L (8-16); BILIRUBIN,TOTAL 0.5 mg/dL (0.2-1); BLOOD UREA NITROGEN 36 mg/dL (7-18); CHLORIDE 114 mmol/L (98-107); CO2 25 mmol/L (22-28); CREATININE 1.1 mg/dL (0.55-1.3); GLUCOSE,RANDOM 161 mg/dL (74-106); MAGNESIUM 2.5 mg/dL (1.8-2.4); PHOSPHOROUS 3.1 mg/dL (2.5-4.9); POTASSIUM 4.5 mmol/L (3.5-5.1); SGOT/AST 149 U/L (15-37); SGPT/ALT 179 U/L (13-61); SODIUM 145 mmol/L (136-145)
[2018-07-15 07:17] LABS: ALLENS TEST POSITIVE
[2018-07-15] MEDS: ALBUTEROL SO4 2.5/IPRATROPIUM 0.5 INH SOL 3 ML VIAL.NEB. NEB SCH ×4 (08:10→21:25)
--- NOTE | 2018-07-15 09:47 | CON.CARD ---
Consult Consult Specialty:: Cardiology Referred by:: Dr. Claudio Reason for Consultation:: Cardiac evaluation - History of Present Illness Chief Complaint: On mechanical ventilation with respiratory failure History of Present Illness: Patient is known to our service (previously seen in the office, but now sees Dr. Ferny Buck in [place]). 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 He is sedated and remains on vent support. He is not on pressors at the moment and has received fluid resuscitation. Cardiology consultation was called for a follow up. He was last seen in the hospital on 06/13/18 when he was admitted with shortness of breath and pedal edema from the [place]. - History Source History Provided By: Medical Record Limitations to Obtaining History: Intubated - Past Medical History Cardio/Vascular: Yes: AFIB, CAD, CHF, HTN, Hyperlipdemia Pulmonary: Yes: COPD, Sleep Apnea Renal/: Yes: BPH Endocrine: Yes: Diabetes Mellitus - Past Surgical History Past Surgical History: Yes: Permanent Pacemaker, Stent, TURP - Alcohol/Substance Use Hx Alcohol Use: No - Smoking History Smoking history: Never smoked Have you smoked in the past 12 months: No Aproximately how many cigarettes per day: 0 - Social History Usual Living Arrangement: Alone ADL: Support Services History of Recent Travel: No Home Medications - Allergies Allergies/Adverse Reactions: Allergies Allergy/AdvReac Type Severity Reaction Status Date / Time No Known Drug Allergies Allergy Verified 07/10/18 10:53 - Home Medications Home Medications: Ambulatory Orders Albuterol 2.5/Ipratropium 0.5 [Duoneb -] 1 neb IH QID 07/10/18 Atorvastatin Ca [Lipitor] 40 mg PO HS 07/10/18 Carvedilol [Coreg -] 6.25 mg PO BID 07/10/18 Docusate Sodium [Colace] 200 mg PO HS 07/10/18 Doxazosin Mesylate [Cardura Xl] 8 mg PO HS 07/10/18 Ferrous Sulfate [Feosol] 325 mg PO DAILY 07/10/18 Furosemide [Lasix -] 40 mg PO DAILY 07/10/18 Insulin Aspart [Novolog] 100 unit SQ ACHS 07/10/18 Insulin Detemir [Levemir Flextouch] 10 unit SQ HS 07/10/18 Losartan Potassium [Cozaar -] 50 mg PO DAILY 07/10/18 Mag Hydrox/Al Hydrox/Simeth [Mylanta *Suspension*] 30 ml PO Q6H PRN 07/10/18 Polyethylene Glycol 3350 [Miralax (For Daily Use) -] 17 gm PO BID 07/10/18 Rivaroxaban [Xarelto -] 20 mg PO DAILY 07/10/18 Sennosides [Senna] 17.2 mg PO HS 07/10/18 Silver Sulfadiazine 1% Top Cr [Silvadene -] 1 applic TP DAILY 07/10/18 clonazePAM [Klonopin -] 0.5 mg PO BID 07/10/18 Family Disease History - Family Disease History Family Disease History: Other: Father (Left when patient was young), Mother ( : 90: "old age") Review of Systems Unable to obtain ROS, reason: Unable to obtain Vital Signs: Vital Signs Temperature 97.6 F 07/15/18 08:00 Pulse Rate 60 07/15/18 08:00 Respiratory Rate 14 07/15/18 09:31 Blood Pressure 105/62 07/15/18 08:00 O2 Sat by Pulse Oximetry (%) 100 07/14/18 22:00 Neck: Yes: Supple Respiratory: Yes: Diminished, Mechanically Ventilated Gastrointestinal: Yes: Normal Bowel Sounds, Soft. No: Tenderness Cardiovascular: Yes: Regular Rate and Rhythm JVD: No Carotid Bruit: No PMI: Non-Displaced Heart Sounds: Yes: S1, S2 Murmur: Yes: Systolic Murmur, Grade 2 Extremities: Yes: Other (skin wounds (silvadene applied)) - Other Data Labs, Other Data: CBC, BMP 07/15/18 05:30 07/15/18 05:30 INR, PTT INR 1.58 (0.83-1.09) H 07/13/18 08:10 Fibrinogen 423.0 mg/dL (238-498) 07/12/18 05:30 Imaging - Results Chest X-ray: Report Reviewed (Improved. Better aeration and atelectasis) EKG: Report Reviewed Problem List - Problems (1) Septic shock Code(s): A41.9 - SEPSIS, UNSPECIFIED ORGANISM; R65.21 - SEVERE SEPSIS WITH SEPTIC SHOCK (2) CAD (coronary artery disease) Code(s): I25.10 - ATHSCL HEART DISEASE OF [place] CORONARY ARTERY W/O ANG PCTRS (3) Hypercholesterolemia Code(s): E78.00 - PURE HYPERCHOLESTEROLEMIA, UNSPECIFIED (4) Sick sinus syndrome Code(s): I49.5 - SICK SINUS SYNDROME (5) Presence of permanent cardiac pacemaker Code(s): Z95.0 - PRESENCE OF CARDIAC PACEMAKER (6) CHF (congestive heart failure) Code(s): I50.9 - HEART FAILURE, UNSPECIFIED Qualifiers: Heart failure type: combined systolic and diastolic Heart failure chronicity: chronic Qualified Code(s): I50.42 - Chronic combined systolic ( congestive) and diastolic (congestive) heart failure (7) COPD (chronic obstructive pulmonary disease) Code(s): J44.9 - CHRONIC OBSTRUCTIVE PULMONARY DISEASE, UNSPECIFIED Qualifiers: COPD type: unspecified COPD Qualified Code(s): J44.9 - Chronic obstructive pulmonary disease, unspecified (8) JENNYFER (acute kidney injury) Code(s): N17.9 - ACUTE KIDNEY FAILURE, UNSPECIFIED (9) Diabetes mellitus Code(s): E11.9 - TYPE 2 DIABETES MELLITUS WITHOUT COMPLICATIONS (10) History of percutaneous coronary intervention Code(s): Z98.890 - OTHER SPECIFIED POSTPROCEDURAL STATES (11) Sleep apnea Code(s): G47.30 - SLEEP APNEA, UNSPECIFIED Qualifiers: Sleep apnea type: unspecified type Qualified Code(s): G47.30 - Sleep apnea , unspecified Assessment/Plan 1. Respiratory failure on mechanical ventilation 2. Septic shock 3. Acute on chronic LV failure class II NYHA classification LV failure referable to systolic/diastolic heart failure 4. CAD s/p PCI/stent, angina pectoris 5. Persistent AF [id number] score of 6 on NOAC 6. AV block PPM 7. HTN 8. Hypercholesterolemia 9. DM 10. COPD 11. CKD 12. Anemia PLAN: 1. Vent support - wean as per Critical Care team as tolerated 2. Antibiotic coverage 3. Xarelto 4. Reassess cardiac medication once extubated and when he is able to take PO 5. Monitor renal function and electrolytes Further plans are to follow Solo Peterson MD
--- NOTE | 2018-07-15 10:30 | PN ---
Teaching Attending Note Name of Resident: Rosa Esposito ATTENDING PHYSICIAN STATEMENT I saw and evaluated the patient. I reviewed the resident's note and discussed the case with the resident. I agree with the resident's findings and plan as documented. SUBJECTIVE: Patient seen and examined in the ICU. Intubated and sedated. Currently off NE hemodynamic support. AC Mode of vent. CXR: improving pulmonary vascular congestion / effusion Intake & Output 07/12/18 07/13/18 07/14/18 07/15/18 23:59 23:59 23:59 23:59 Intake Total 4919 3022.8 2076 411 Output Total 8582 156 0835 800 Balance 3219 2222.8 726 -389 Weight 169 lb 176 lb 12.972 oz 179 lb 10.828 oz 168 lb 8 oz Last Vital Signs Temp Pulse Resp BP Pulse Ox 96.4 F L 60 12 105/60 100 07/15/18 10:00 07/15/18 10:00 07/15/18 10:00 07/15/18 10:00 07/14/18 22:00 Active Medications Al Hydroxide/Mg Hydroxide (Mylanta Oral Suspension -) 30 ml PO Q6H PRN PRN Reason: INDIGESTION Albuterol/Ipratropium (Duoneb -) 1 amp NEB RQID [facility] Last Admin: 07/15/18 08:10 Dose: 1 amp Chlorhexidine Gluconate (Hibiclens For Decolonization -) 1 applic TP HS [facility] Last Admin: 07/14/18 21:37 Dose: 1 applic Chlorhexidine Gluconate (Peridex -) 15 ml MM BID [facility] Last Admin: 07/14/18 21:38 Dose: 15 ml Clonazepam (Klonopin -) 0.5 mg PO BID [facility] Last Admin: 07/14/18 21:37 Dose: Not Given Docusate Sodium (Colace -) 200 mg PO HS [facility] Last Admin: 07/14/18 21:36 Dose: Not Given Ferrous Sulfate (Feosol -) 325 mg PO DAILY [facility] Last Admin: 07/14/18 09:45 Dose: Not Given Fludrocortisone Acetate (Florinef -) 0.05 mg NGT DAILY [facility] Last Admin: 07/14/18 09:45 Dose: Not Given Hydrocortisone Sodium Succinate (Solu-Cortef -) 25 mg IVPB Q6H-IV [facility] Last Admin: 07/15/18 03:05 Dose: 25 mg Piperacillin Sod/Tazobactam (Sod 3.375 gm/ Dextrose) 50 mls @ 100 mls/hr IVPB Q8H-IV [facility]; Protocol Last Admin: 07/15/18 02:56 Dose: 100 mls/hr Norepinephrine Bitartrate 8, (000 mcg/ Dextrose) 500 mls @ 18.75 mls/hr IV TITR [facility]; Protocol Last Admin: 07/15/18 05:29 Dose: Not Given Propofol (Diprivan -) 1,000,000 mcg in 100 mls @ 2.303 mls/hr IVPB TITR [facility]DNI; Protocol Last Admin: 07/14/18 14:07 Dose: 30 mcg/kg/min, 13.819 mls/hr Vancomycin HCl 1,250 mg/ (Dextrose) 250 mls @ 166.667 mls/hr IVPB Q24H [facility]; Protocol Last Admin: 07/14/18 14:06 Dose: 166.667 mls/hr Insulin Aspart (Novolog Vial Sliding Scale -) 1 vial SQ Q6H [facility]; Protocol Last Admin: 07/15/18 05:29 Dose: 2 units Levothyroxine Sodium (Synthroid Injection -) 25 mcg IVPUSH DAILY [facility] Last Admin: 07/14/18 09:44 Dose: 25 mcg Mupirocin (Bactroban Ointment (For Decolonization) -) 1 applic NS BID [facility] Stop: 07/15/18 21:59 Last Admin: 07/14/18 21:35 Dose: 1 applic Pantoprazole Sodium (Protonix Iv) 40 mg IVPUSH DAILY [facility] Polyethylene Glycol (Miralax (For Daily Use) -) 17 gm PO BID [facility] Last Admin: 07/14/18 21:37 Dose: Not Given Rivaroxaban (Xarelto -) 20 mg PO DAILY@1800 [facility] Senna (Senna -) 2 tab PO HS [facility] Last Admin: 07/14/18 21:38 Dose: Not Given GENERAL: Intubated and sedated HEAD: Normal with no signs of trauma. EYES: Exophthalmus, EOM intact, no pallor or icterus. EARS, NOSE, THROAT: Ears normal. Dry mucous membranes. NECK: Supple, no JVD. LUNGS: bibasilar rhonchi / rales, no wheeze. HEART: Tachycardic, Regular rate and rhythm, normal S1 and S2 with systolic murmur +. ABDOMEN: Soft, nontender, no organomegaly. MUSCULOSKELETAL: Normal range of motion at all joints. No bony deformities or tenderness. No CVA tenderness. UPPER EXTREMITIES: 2+ pulses, warm, well-perfused. No cyanosis. No clubbing. LOWER EXTREMITIES: Improving B/L erythema of the skin of lower extremities NEUROLOGICAL: sedated Laboratory Results - last 24 hr 07/14/18 07/14/18 07/14/18 05:30 11:33 15:23 WBC RBC Hgb Hct MCV MCH MCHC RDW Plt Count MPV Neutrophils % (Manual) 95.0 H Band Neutrophils % 0.0 Lymphocytes % (Manual) 3.0 L D Monocytes % (Manual) 2 L Eosinophils % (Manual) 0.0 Basophils % (Manual) 0.0 Myelocytes % (Man) 0 Promyelocytes % (Man) 0 Blast Cells % (Manual) 0 Metamyelocytes 0 Hypochromia 1+ Platelet Estimate Normal Polychromasia 0 Poikilocytosis 1+ Anisocytosis 1+ Macrocytosis 1+ Flo Cells 1+ Schistocytes 1+ Puncture Site ABG pH ABG pCO2 at Pt Temp ABG pO2 at Pt Temp ABG HCO3 ABG O2 Sat (Measured) ABG O2 Content ABG Base Excess Jaret Test O2 Delivery Device Oxygen Flow Rate Vent Mode Vent Rate Mechanical Rate PEEP Pressure Support Vent Sodium Potassium Chloride Carbon Dioxide Anion Gap BUN Creatinine Creat Clearance w eGFR POC Glucometer 191.77428 230.44304 Random Glucose Calcium Phosphorus Magnesium Total Bilirubin AST ALT Alkaline Phosphatase Total Protein Albumin 07/14/18 07/15/18 07/15/18 21:52 05:18 05:30 WBC 11.5 H RBC 2.59 L Hgb 8.5 L Hct 26.4 L MCV 101.7 H MCH 32.9 MCHC 32.4 RDW 18.9 H Plt Count 235 MPV 8.6 Neutrophils % (Manual) Band Neutrophils % Lymphocytes % (Manual) Monocytes % (Manual) Eosinophils % (Manual) Basophils % (Manual) Myelocytes % (Man) Promyelocytes % (Man) Blast Cells % (Manual) Metamyelocytes Hypochromia Platelet Estimate Polychromasia Poikilocytosis Anisocytosis Macrocytosis Terry Cells Schistocytes Puncture Site ABG pH ABG pCO2 at Pt Temp ABG pO2 at Pt Temp ABG HCO3 ABG O2 Sat (Measured) ABG O2 Content ABG Base Excess Jaret Test O2 Delivery Device Oxygen Flow Rate Vent Mode Vent Rate Mechanical Rate PEEP Pressure Support Vent Sodium Potassium Chloride Carbon Dioxide Anion Gap BUN Creatinine Creat Clearance w eGFR POC Glucometer 206.17630 196.23812 Random Glucose Calcium Phosphorus Magnesium Total Bilirubin AST ALT Alkaline Phosphatase Total Protein Albumin 07/15/18 07/15/18 05:30 06:00 WBC RBC Hgb Hct MCV MCH MCHC RDW Plt Count MPV Neutrophils % (Manual) Band Neutrophils % Lymphocytes % (Manual) Monocytes % (Manual) Eosinophils % (Manual) Basophils % (Manual) Myelocytes % (Man) Promyelocytes % (Man) Blast Cells % (Manual) Metamyelocytes Hypochromia Platelet Estimate Polychromasia Poikilocytosis Anisocytosis Macrocytosis Terry Cells Schistocytes Puncture Site Right radial ABG pH 7.36 ABG pCO2 at Pt Temp 39.2 ABG pO2 at Pt Temp 101.0 H D ABG HCO3 21.8 L ABG O2 Sat (Measured) 97.6 ABG O2 Content 12.2 L ABG Base Excess -2.7 L Jaret Test Positive O2 Delivery Device Mech vent Oxygen Flow Rate 30% Vent Mode A/c Vent Rate 12 Mechanical Rate Yes PEEP 5.0 Pressure Support Vent 440 Sodium 145 Potassium 4.5 Chloride 114 H Carbon Dioxide 25 Anion Gap 6 L BUN 36 H Creatinine 1.1 Creat Clearance w eGFR > 60 POC Glucometer Random Glucose 161 H Calcium 8.0 L Phosphorus 3.1 Magnesium 2.5 H Total Bilirubin 0.5 AST 149 H ALT 179 H Alkaline Phosphatase 131 H Total Protein 5.0 L Albumin 1.9 L ASSESSMENT/PLAN: Septoc Shock due to tract infection versus Skin pathogens due to LE wounds Systolic / Diastolic CHF COPD HTN HLD CAD S/P PCI x 7 PPM Atrial Fibrillation DM Chronic venous insufficiency BPH s/p TURP CKD Anemia Severe OSAS (RDI 108 per hour / desaturation to 72%) Suspected Euthyroid Sick Syndrome AC Mode of vent / SBTs as tolerated ABX coverage per ID Aspiration precautions Strict I & O Aspiration precautions NO lasix Wean Hydrocortisone Fludrocortisone for Shock Glycemic control AC Hope to extubate in next [address] Claudio Critical care time spent in reviewing chart, evaluating patient and formulating plan - 36 minutes.
[2018-07-15] MEDS: PANTOPRAZOLE SODIUM 40 MG VIAL IVPUSH SCH (10:38)
[2018-07-15] MEDS: CHLORHEXIDINE GLUCONATE 0.12% 15ML CUP MM SCH ×2 (10:39→22:45)
[2018-07-15] MEDS: MUPIROCIN 2% TOPICAL OINTMENT FOR DECOLONIZATION NS SCH (10:39)
[2018-07-15] MEDS ORDERED: PT OWN MED DRAWER 7, Y5N ONE (10:41)
[2018-07-15] MEDS: LEVOTHYROXINE SODIUM 100 MCG VIAL IVPUSH SCH (10:41)
[2018-07-15] MEDS: FLUDROCORTISONE ACETATE 0.1 MG TABLET (FP) NGT SCH (10:42)
[2018-07-15] MEDS: FERROUS SO4 325 MG TABLET (FP) PO SCH (10:50)
[2018-07-15] MEDS: PROPOFOL 1,000,000 MCG/100 ML VIAL IVPB SCH ×2 (10:50→19:47)
[2018-07-15] MEDS: POLYETHYLENE GLYCOL 3350 119 GM BTL PO SCH ×2 (10:50→22:44)
--- NOTE | 2018-07-15 12:49 | PN ---
Physical Exam: SUBJECTIVE: Patient seen and examined at bed side this morning. Sedated and intubated settings @ A/C 12/450/30/5 propofol @ 30 OBJECTIVE: Vital Signs Period Temp Pulse Resp BP Sys/Kuo Pulse Ox Last 24 Hr 95.2 F-99 F 59-60 11-17 87-112/51-65 100-100 GENERAL: The patient is intubated and sedated, christie in place, NG in place. HEAD: Normal with no signs of trauma. NECK: Trachea midline, full range of motion, supple. LUNGS: Coarse breath sounds bilaterally. No wheeze. HEART: Regular rate and rhythm, S1, S2 with soft systolic murmur. ABDOMEN: Soft, nontender, nondistended, normoactive bowel sounds. UPPER EXTREMITIES: 2+ pulses, warm, well-perfused, no edema. LOWER EXTREMITIES: B/L erythema-improving, minimal serosanguinous weeping lesions. SKIN: Warm, dry, normal turgor, + stage 1 sacral ulcer Laboratory Results - last 24 hr 07/14/18 07/14/18 07/15/18 15:23 21:52 05:18 WBC RBC Hgb Hct MCV MCH MCHC RDW Plt Count MPV Puncture Site ABG pH ABG pCO2 at Pt Temp ABG pO2 at Pt Temp ABG HCO3 ABG O2 Sat (Measured) ABG O2 Content ABG Base Excess Jaret Test O2 Delivery Device Oxygen Flow Rate Vent Mode Vent Rate Mechanical Rate PEEP Pressure Support Vent Sodium Potassium Chloride Carbon Dioxide Anion Gap BUN Creatinine Creat Clearance w eGFR POC Glucometer 230.76726 206.70131 196.40135 Random Glucose Calcium Phosphorus Magnesium Total Bilirubin AST ALT Alkaline Phosphatase Total Protein Albumin Vancomycin Pre-Dose 07/15/18 07/15/18 07/15/18 05:30 05:30 06:00 WBC 11.5 H RBC 2.59 L Hgb 8.5 L Hct 26.4 L MCV 101.7 H MCH 32.9 MCHC 32.4 RDW 18.9 H Plt Count 235 MPV 8.6 Puncture Site Right radial ABG pH 7.36 ABG pCO2 at Pt Temp 39.2 ABG pO2 at Pt Temp 101.0 H D ABG HCO3 21.8 L ABG O2 Sat (Measured) 97.6 ABG O2 Content 12.2 L ABG Base Excess -2.7 L Jaret Test Positive O2 Delivery Device Mech vent Oxygen Flow Rate 30% Vent Mode A/c Vent Rate 12 Mechanical Rate Yes PEEP 5.0 Pressure Support Vent 440 Sodium 145 Potassium 4.5 Chloride 114 H Carbon Dioxide 25 Anion Gap 6 L BUN 36 H Creatinine 1.1 Creat Clearance w eGFR > 60 POC Glucometer Random Glucose 161 H Calcium 8.0 L Phosphorus 3.1 Magnesium 2.5 H Total Bilirubin 0.5 AST 149 H ALT 179 H Alkaline Phosphatase 131 H Total Protein 5.0 L Albumin 1.9 L Vancomycin Pre-Dose 07/15/18 07/15/18 10:00 11:05 WBC RBC Hgb Hct MCV MCH MCHC RDW Plt Count MPV Puncture Site ABG pH ABG pCO2 at Pt Temp ABG pO2 at Pt Temp ABG HCO3 ABG O2 Sat (Measured) ABG O2 Content ABG Base Excess Jaret Test O2 Delivery Device Oxygen Flow Rate Vent Mode Vent Rate Mechanical Rate PEEP Pressure Support Vent Sodium Potassium Chloride Carbon Dioxide Anion Gap BUN Creatinine Creat Clearance w eGFR POC Glucometer 210.37025 Random Glucose Calcium Phosphorus Magnesium Total Bilirubin AST ALT Alkaline Phosphatase Total Protein Albumin Vancomycin Pre-Dose 15.8 L Active Medications Generic Name Dose Route Start Last Admin Trade Name Freq PRN Reason Stop Dose Admin Al Hydroxide/Mg Hydroxide 30 ml 07/10/18 19:52 Mylanta Oral Suspension - PO Q6H PRN INDIGESTION Albuterol/Ipratropium 1 amp 07/10/18 20:15 07/15/18 11:53 Duoneb - NEB 1 amp RQID [facility] Administration Chlorhexidine Gluconate 1 applic 07/10/18 22:00 07/14/18 21:37 Hibiclens For Decolonization - TP 1 applic HS [facility] Administration Chlorhexidine Gluconate 15 ml 07/13/18 22:00 07/15/18 10:39 Peridex - MM 15 ml BID [facility] Administration Clonazepam 0.5 mg 07/10/18 22:00 07/14/18 21:37 Klonopin - PO Not Given BID [facility]YDIN Docusate Sodium 200 mg 07/10/18 22:00 07/14/18 21:36 Colace - PO Not Given HS [facility] Ferrous Sulfate 325 mg 07/11/18 10:00 07/15/18 10:50 Feosol - PO 325 mg DAILY [facility] Administration Fludrocortisone Acetate 0.05 mg 07/12/18 16:30 11/10/18 10:42 Florinef - NGT 0.05 mg DAILY [facility]YDIN Administration Hydrocortisone Sodium Succinate 25 mg 07/13/18 15:00 07/15/18 10:39 Solu-Cortef - IVPB 25 mg Q6H-IV [facility] Administration Piperacillin Sod/Tazobactam 50 mls @ 100 mls/hr 07/11/18 02:00 07/15/18 10:38 Sod 3.375 gm/ Dextrose IVPB 100 mls/hr Q8H-IV [facility] Administration Protocol Norepinephrine Bitartrate 8, 500 mls @ 18.75 mls/hr 07/11/18 05:45 07/15/18 05:29 000 mcg/ Dextrose IV Not Given TITR [facility] Protocol 5 MCG/MIN Propofol 1,000,000 mcg in 100 mls @ 2.303 mls/hr 07/12/18 12:15 07/15/18 10: 50 Diprivan - IVPB 30 mcg/kg/min TITR AYDIN 13.819 mls/hr Administration Protocol 5 MCG/KG/MIN Vancomycin HCl 1,250 mg/ 250 mls @ 166.667 mls/hr 07/12/18 15:00 07/14/18 14: 06 Dextrose IVPB 166.667 mls/hr Q24H [facility] Administration Protocol Insulin Aspart 1 vial 07/14/18 16:30 07/15/18 11:07 Novolog Vial Sliding Scale - SQ 4 units Q6H [facility] Administration Protocol Levothyroxine Sodium 25 mcg 07/12/18 10:00 07/15/18 10:41 Synthroid Injection - IVPUSH 25 mcg DAILY [facility] Administration Mupirocin 1 applic 07/10/18 22:00 07/15/18 10:39 Bactroban Ointment (For Decolonization) - NS 07/15/18 21:59 1 applic BID [facility] Administration Pantoprazole Sodium 40 mg 07/15/18 10:00 07/15/18 10:38 Protonix Iv IVPUSH 40 mg DAILY [facility] Administration Polyethylene Glycol 17 gm 07/10/18 22:00 07/15/18 10:50 Miralax (For Daily Use) - PO 17 grams BID [facility] Administration Rivaroxaban 20 mg 07/15/18 18:00 Xarelto - PO DAILY@1800 [facility] Senna 2 tab 07/10/18 22:00 11/09/18 21:38 Senna - PO Not Given HS AYDIN USG abdomen: Right pleural effusion and trace ascites. Thick walled gallbladder with biliary sludge. ASSESSMENT/PLAN: Patient is an 83 year old male with significant past medical history of sys/ diastolic CHF; COPD; HTN; HLD; CAD (s/p stenting x7 and pacemaker); Atrial Fibrillation; DM; chronic venous insufficiency; BPH s/p TURP; CKD; anemia for B/ L leg pain and abnormal gait was sent from [facility] for evaluation of B/L lower extremity pain. ID Septic shock likely secondary to Cellulitis of B/L Lower extremity-Improving Currently off pressors IV Solumedrol 25mg Q6H Fludrocortisone 0.05mg OGT daily Blood cultures negative, Urine culture positive for Staph, wound cultures MRSA. Contact Isolation Continue Vancomycin 1250mg daily Day 6 and Zosyn 3.375 q8h Day 7 Vanc trough 15.8 today. Clean open wounds with normal saline and apply Silvadene Podiatry(Dr. Greene) consulted for avulsed L great toe nail. Pulmonology Acute Hypoxic and Hypercapneic respiratory failure likely secondary to Pneumonia Continue sedation and Intubation. Will do sedation vacation in AM and see check mental status as well as his response. Continue Vancomycin 1250mg daily Day 6 and Zosyn 3.375 q8h Day 7 COPD Duoneb QID AYDIN Obstructive Sleep Apnea GI Coffee ground seen likely secondary to acute gastritis-resolved Protonix drip stopped this morning. IV Protonix 40mg BID to be started Tube feeds to be started today. Transaminitis likely in the setting of sepsis: improving LFT's trending down AST/ALT/ALP: 149/179/131 Hepatitis panel: negative Avoid NSAIDs Endo Diabetes Mellitus, A1c 6.8 Insulin sliding scale, Finger stick BGMs, Monitor for hypoglycemia Hypothyroidism Concern for Myexdema vs Euthyroid sick syndrome on admission. Dr. Duron was consulted Continue IV synthroid 25mcg daily Cardiovascular Systolic/Diastolic CHF: not on exacerbation CXR looks better today. Will hold IV Lasix Prolonged QTc: 614 on admission Avoid medications causing prolonged QTc. CAD (s/p stenting x7 and pacemaker) Continue [id number] PO HS On Xarelto 20mg daily Hypertension, was in septic shock, currently off pressors Hold antihypertensives Hyperlipidemia continue Lipitor 40mg PO HS Atrial Fibrillation: rate controlled On Xarelto 20mg daily Renal JENNYFER likely due to hypovolemia from septic shock creatinine 1.1 today Avoid nephrotoxic drugs Hematology Macrocytic anemia H/H 8.6/26.4, s/p 1 unit pRBC this admission. No active GI bleed. will monitor CBC FEN Not on IV fluids, will give bolus if needed Electrolytes WNL Tube feeds re-started today. Prophylaxis For DVT On Xarelto 20mg daily For GI -IV Protnix 40mg BID Disposition: Admit in ICU. Code Status: DNR. Palliative care on board Case seen and discussed with Dr. Claudio. Visit type - Emergency Visit Emergency Visit: Yes ED Registration Date: 07/10/18 Care time: The patient presented to the Emergency Department on the above date and was hospitalized for further evaluation of their emergent condition. - New Patient This patient is new to me today: No - Critical Care Critical Care patient: Yes Total Critical Care Time (in minutes): 35 Critical Care Statement: The care of this patient involved high complexity decision making to prevent further life threatening deterioration of the patient 's condition and/or to evaluate & treat vital organ system(s) failure or risk of failure. - Discharge Referral Referred to [facility] No
[2018-07-15] MEDS: clonazePAM 0.5 MG TABLET PO SCH ×2 (13:16→22:44)
[2018-07-15] MEDS ORDERED: FENTANYL INJECTION 500 MCG in DEXTROSE 5%-WATER - 90 ML IVPB SCH (14:30)
[2018-07-15] MEDS: VANCOMYCIN 1,250 MG in DEXTROSE 5%-WATER - 250 ML IVPB SCH (15:02)
--- NOTE | 2018-07-15 15:56 | PN ---
GI Progress Note Subjective: Off pressors No overt GI bleeding reported Tolerating tube feeds - Objective Vital Signs: Vital Signs Temperature 98.8 F 07/15/18 14:00 Pulse Rate 60 07/15/18 14:00 Respiratory Rate 18 07/15/18 14:00 Blood Pressure 89/50 L 07/15/18 14:00 O2 Sat by Pulse Oximetry (%) 100 07/14/18 22:00 Constitutional: Calm Eyes: No: Sclera Icterus Cardiovascular: Yes: Bradycardia Respiratory: Yes: Diminished (at bases b/l with poor insp effort) Gastrointestinal Inspection: No: Distention ...Auscultate: Yes: Normoactive Bowel Sounds ...Palpate: No: Tenderness (No grimacing upon palpation) Labs: CBC, BMP 07/15/18 05:30 07/15/18 05:30 INR, PTT INR 1.58 (0.83-1.09) H 07/13/18 08:10 Fibrinogen 423.0 mg/dL (238-498) 07/12/18 05:30 Problem List - Problems (1) Coffee ground emesis Assessment/Plan: No overt bleeding Stable H/H Protonix 40mg IVPB daily Avoid NSAIDs Code(s): K92.0 - HEMATEMESIS (2) Abnormal liver function tests Assessment/Plan: LFTs improving. No focal RUQ pain noted on physical exam. continue to monitor Avoid hepatotoxic agents. Stopped statin yesterday Code(s): R94.5 - ABNORMAL RESULTS OF LIVER FUNCTION STUDIES
--- NOTE | 2018-07-15 16:08 | PN ---
Progress Note, Physician History of Present Illness: improving off of pressors hypothermia currently resolved still intubated and sedated vanco level noted - Current Medication List Current Medications: Active Medications Al Hydroxide/Mg Hydroxide (Mylanta Oral Suspension -) 30 ml PO Q6H PRN PRN Reason: INDIGESTION Albuterol/Ipratropium (Duoneb -) 1 amp NEB RQID [facility] Last Admin: 07/15/18 11:53 Dose: 1 amp Chlorhexidine Gluconate (Hibiclens For Decolonization -) 1 applic TP HS [facility] Last Admin: 07/14/18 21:37 Dose: 1 applic Chlorhexidine Gluconate (Peridex -) 15 ml MM BID [facility] Last Admin: 07/15/18 10:39 Dose: 15 ml Clonazepam (Klonopin -) 0.5 mg PO BID [facility] Last Admin: 07/15/18 13:16 Dose: Not Given Docusate Sodium (Colace -) 200 mg PO HS [facility] Last Admin: 07/14/18 21:36 Dose: Not Given Fentanyl (Sublimaze Injection -) 25 mcg IVPUSH ONCE ONE Stop: 07/15/18 16:16 Ferrous Sulfate (Feosol -) 325 mg PO DAILY [facility] Last Admin: 07/15/18 10:50 Dose: 325 mg Fludrocortisone Acetate (Florinef -) 0.05 mg NGT DAILY [facility] Last Admin: 07/15/18 10:42 Dose: 0.05 mg Hydrocortisone Sodium Succinate (Solu-Cortef -) 25 mg IVPB Q6H-IV [facility] Last Admin: 07/15/18 15:03 Dose: 25 mg Piperacillin Sod/Tazobactam (Sod 3.375 gm/ Dextrose) 50 mls @ 100 mls/hr IVPB Q8H-IV [facility]; Protocol Last Admin: 07/15/18 10:38 Dose: 100 mls/hr Norepinephrine Bitartrate 8, (000 mcg/ Dextrose) 500 mls @ 18.75 mls/hr IV TITR [facility]; Protocol Last Admin: 07/15/18 05:29 Dose: Not Given Propofol (Diprivan -) 1,000,000 mcg in 100 mls @ 2.303 mls/hr IVPB TITR [facility]; Protocol Last Titration: 07/15/18 15:00 Dose: 10 mcg/kg/min, 4.606 mls/hr Vancomycin HCl 1,250 mg/ (Dextrose) 250 mls @ 166.667 mls/hr IVPB Q24H [facility]; Protocol Last Admin: 07/15/18 15:02 Dose: 166.667 mls/hr Insulin Aspart (Novolog Vial Sliding Scale -) 1 vial SQ Q6H [facility]; Protocol Last Admin: 07/15/18 11:07 Dose: 4 units Levothyroxine Sodium (Synthroid Injection -) 25 mcg IVPUSH DAILY [facility] Last Admin: 07/15/18 10:41 Dose: 25 mcg Mupirocin (Bactroban Ointment (For Decolonization) -) 1 applic NS BID [facility] Stop: 07/15/18 21:59 Last Admin: 07/15/18 10:39 Dose: 1 applic Pantoprazole Sodium (Protonix Iv) 40 mg IVPUSH DAILY [facility] Last Admin: 07/15/18 10:38 Dose: 40 mg Polyethylene Glycol (Miralax (For Daily Use) -) 17 gm PO BID [facility] Last Admin: 07/15/18 10:50 Dose: 17 grams Rivaroxaban (Xarelto -) 20 mg PO DAILY@1800 [facility] Senna (Senna -) 2 tab PO HS [facility] Last Admin: 07/14/18 21:38 Dose: Not Given - Objective Vital Signs: Vital Signs Temperature 98.8 F 07/15/18 14:00 Pulse Rate 60 07/15/18 14:00 Respiratory Rate 18 07/15/18 14:00 Blood Pressure 89/50 L 07/15/18 14:00 O2 Sat by Pulse Oximetry (%) 100 07/14/18 22:00 Constitutional: Yes: No Distress, Calm Cardiovascular: Yes: Regular Rate and Rhythm Respiratory: Yes: Regular, Mechanically Ventilated, On Nasal O2 Gastrointestinal: Yes: Normal Bowel Sounds, Soft Musculoskeletal: Yes: WNL Extremities: Yes: Other Neurological: Yes: Alert, Oriented Psychiatric: Yes: Alert Labs: CBC, BMP 07/15/18 05:30 07/15/18 05:30 INR, PTT INR 1.58 (0.83-1.09) H 07/13/18 08:10 Fibrinogen 423.0 mg/dL (238-498) 07/12/18 05:30 Assessment/Plan septic shock Systolic / Diastolic CHF COPD HTN HLD CAD PPM Atrial Fibrillation DM Chronic venous insufficiency BPH s/p TURP CKD Anemia tube feeds restarted plan continue abx iv fluids wound care rest as per icu hydration nutrition cc 40 min
[2018-07-15] MEDS: RIVAROXABAN 20 MG TABLET PO SCH (17:30)
--- NOTE | 2018-07-15 19:11 | PN ---
Progress Note (short form) - Note Progress Note: Patient continues to be intubated, sedated. In ICU. Vital Signs Temperature 97.8 F 07/15/18 18:00 Pulse Rate 60 07/15/18 18:00 Respiratory Rate 14 07/15/18 18:00 Blood Pressure 109/62 07/15/18 18:00 O2 Sat by Pulse Oximetry (%) 100 07/14/18 22:00 GENERAL: The patient is intubated and sedated. HEAD: Normal with no signs of trauma. NECK: Trachea midline, full range of motion, supple. LUNGS: positive for scattered rhonchi bilaterally. HEART: Regular rate and rhythm, S1, S2 without murmur, rub or gallop. ABDOMEN: Soft, nontender, nondistended, normoactive bowel sounds. EXTREMITIES: 2+ pulses, warm, well-perfused, no edema. SKIN: Warm, dry, normal turgor, +stage 1 sacral ulcer CBCD WBC 11.5 K/mm3 (4.0-10.0) H 07/15/18 05:30 RBC 2.59 M/mm3 (4.00-5.60) L 07/15/18 05:30 Hgb 8.5 GM/dL (11.7-16.9) L 07/15/18 05:30 Hct 26.4 % (35.4-49) L 07/15/18 05:30 MCV 101.7 fl (80-96) H 07/15/18 05:30 MCHC 32.4 g/dl (32.0-35.9) 07/15/18 05:30 RDW 18.9 % (11.9-15.9) H 07/15/18 05:30 Plt Count 235 K/MM3 (134-434) 07/15/18 05:30 MPV 8.6 fl (7.5-11.1) 07/15/18 05:30 CMP Sodium 145 mmol/L (136-145) 07/15/18 05:30 Potassium 4.5 mmol/L (3.5-5.1) 07/15/18 05:30 Chloride 114 mmol/L (98-107) H 07/15/18 05:30 Carbon Dioxide 25 mmol/L (22-28) 07/15/18 05:30 Anion Gap 6 MMOL/L (8-16) L 07/15/18 05:30 BUN 36 mg/dL (7-18) H 07/15/18 05:30 Creatinine 1.1 mg/dL (0.55-1.3) 07/15/18 05:30 Creat Clearance w eGFR > 60 (>60) 07/15/18 05:30 Random Glucose 161 mg/dL (74-106) H 07/15/18 05:30 Calcium 8.0 mg/dL (8.5-10.1) L 07/15/18 05:30 Total Bilirubin 0.5 mg/dL (0.2-1) 07/15/18 05:30 AST 149 U/L (15-37) H 07/15/18 05:30 ALT 179 U/L (13-61) H 07/15/18 05:30 Alkaline Phosphatase 131 U/L (45-117) H 07/15/18 05:30 Total Protein 5.0 g/dl (6.4-8.2) L 07/15/18 05:30 Albumin 1.9 g/dl (3.4-5.0) L 07/15/18 05:30 CARDIAC ENZYMES Creatine Kinase 179 IU/L (26-308) 07/10/18 16:00 Troponin I < 0.02 ng/ml (0.00-0.05) 07/10/18 16:00 Current Medications Generic Name Dose Route Start Last Admin Trade Name Freq PRN Reason Stop Dose Admin Al Hydroxide/Mg Hydroxide 30 ml 07/10/18 19:52 Mylanta Oral Suspension - PO Q6H PRN INDIGESTION Albuterol/Ipratropium 1 amp 07/10/18 20:15 07/15/18 16:24 Duoneb - NEB 1 amp RQID [facility] Administration Chlorhexidine Gluconate 1 applic 07/10/18 22:00 07/14/18 21:37 Hibiclens For Decolonization - TP 1 applic HS [facility] Administration Chlorhexidine Gluconate 15 ml 07/13/18 22:00 07/15/18 10:39 Peridex - MM 15 ml BID [facility] Administration Clonazepam 0.5 mg 07/10/18 22:00 07/15/18 13:16 Klonopin - PO Not Given BID [facility] Docusate Sodium 200 mg 07/10/18 22:00 07/14/18 21:36 Colace - PO Not Given HS [facility] Ferrous Sulfate 325 mg 07/11/18 10:00 07/15/18 10:50 Feosol - PO 325 mg DAILY [facility] Administration Fludrocortisone Acetate 0.05 mg 07/12/18 16:30 07/15/18 10:42 Florinef - NGT 0.05 mg DAILY [facility] Administration Hydrocortisone Sodium Succinate 25 mg 07/13/18 15:00 07/15/18 15:03 Solu-Cortef - IVPB 25 mg Q6H-IV [facility] Administration Piperacillin Sod/Tazobactam 50 mls @ 100 mls/hr 07/11/18 02:00 07/15/18 17:45 Sod 3.375 gm/ Dextrose IVPB 100 mls/hr Q8H-IV [facility] Administration Protocol Norepinephrine Bitartrate 8, 500 mls @ 18.75 mls/hr 07/11/18 05:45 07/15/18 05:29 000 mcg/ Dextrose IV Not Given TITR [facility] Protocol 5 MCG/MIN Propofol 1,000,000 mcg in 100 mls @ 2.303 mls/hr 07/12/18 12:15 07/15/18 15: 00 Diprivan - IVPB 10 mcg/kg/min TITR [facility] 4.606 mls/hr Titration Protocol 5 MCG/KG/MIN Vancomycin HCl 1,250 mg/ 250 mls @ 166.667 mls/hr 07/12/18 15:00 07/15/18 15: 02 Dextrose IVPB 166.667 mls/hr Q24H [facility] Administration Protocol Insulin Aspart 1 vial 07/14/18 16:30 07/15/18 17:27 Novolog Vial Sliding Scale - SQ 7 units Q6H [facility] Administration Protocol Levothyroxine Sodium 25 mcg 07/12/18 10:00 07/15/18 10:41 Synthroid Injection - IVPUSH 25 mcg DAILY [facility] Administration Mupirocin 1 applic 07/10/18 22:00 07/15/18 10:39 Bactroban Ointment (For Decolonization) - NS 07/15/18 21:59 1 applic BID [facility] Administration Pantoprazole Sodium 40 mg 07/15/18 10:00 07/15/18 10:38 Protonix Iv IVPUSH 40 mg DAILY [facility] Administration Polyethylene Glycol 17 gm 07/10/18 22:00 07/15/18 10:50 Miralax (For Daily Use) - PO 17 grams BID [facility] Administration Rivaroxaban 20 mg 07/15/18 18:00 07/15/18 17:30 Xarelto - PO 20 mg DAILY@1800 [facility] Administration Senna 2 tab 07/10/18 22:00 07/14/18 21:38 Senna - PO Not Given HS [facility] Home Medications Medication Instructions Recorded Albuterol 2.5/Ipratropium 0.5 1 neb IH QID 07/10/18 [Duoneb -] Atorvastatin Ca [Lipitor] 40 mg PO HS 07/10/18 Carvedilol [Coreg -] 6.25 mg PO BID 07/10/18 Docusate Sodium [Colace] 200 mg PO HS 07/10/18 Doxazosin Mesylate [Cardura Xl] 8 mg PO HS 07/10/18 Ferrous Sulfate [Feosol] 325 mg PO DAILY 07/10/18 Furosemide [Lasix -] 40 mg PO DAILY 07/10/18 Insulin Aspart [Novolog] 100 unit SQ ACHS 07/10/18 Insulin Detemir [Levemir Flextouch] 10 unit SQ HS 07/10/18 Losartan Potassium [Cozaar -] 50 mg PO DAILY 07/10/18 Mag Hydrox/Al Hydrox/Simeth 30 ml PO Q6H PRN 07/10/18 [Mylanta *Suspension*] Polyethylene Glycol 3350 [Miralax 17 gm PO BID 07/10/18 (For Daily Use) -] Rivaroxaban [Xarelto -] 20 mg PO DAILY 07/10/18 Sennosides [Senna] 17.2 mg PO HS 07/10/18 Silver Sulfadiazine 1% Top Cr 1 applic TP DAILY 07/10/18 [Silvadene -] clonazePAM [Klonopin -] 0.5 mg PO BID 07/10/18 07/11/18 03:30 Leg - Right Lower Gram Stain - Final 07/11/18 03:30 Leg - Right Lower Wound Culture - Preliminary Pseudomonas Aeruginosa Klebsiella Oxytoca Mr S Aureus Enterococcus Faecalis 07/10/18 11:15 Blood - Peripheral Venous Blood Culture - Preliminary NO GROWTH OBTAINED AFTER 96 HOURS, INCUBATION TO CONTINUE FOR 1 DAYS. 07/10/18 11:00 Blood - Peripheral Venous Blood Culture - Preliminary NO GROWTH OBTAINED AFTER 96 HOURS, INCUBATION TO CONTINUE FOR 1 DAYS. 07/10/18 12:20 Urine - Urine Clean Catch Urine Culture - Final Staphylococcus Warneri ASSESSMENT AND PLAN: Patient is a 83 y/o man with h/o CAD, s/p stents, permanent A fib, Systolic heart failure, HTN, HLP, DM , CKD , Anemia, COPD,recent admission for acute CHF exacerbation who was sent from [place] for LE pain and was found to have hypothermia and hypotension # Septic shock : multifactorial due to LE cellulites/hypercapneic respiratory failure; growing the organism as above , continue levophed, cont IVF, On Zosyn , Vancomycin . On stress dose HC, weaning trial in am # Acute hypoxic, hypercapnic resp failure s/p Intubation . Weaning trial in am #Abn TFT, Elevated TSH , likely due to sick euthyroid syndrome, will repeat the level post recovery # H/o A fib: On Xarelto continue , intubated. Hold coreg due to hypotension . # H/o CHF: not in acute decompensated CHF now, continue to hold lasix. patient is in ICU DVt Px: SCDs. patient is DNR Visit type - Emergency Visit Emergency Visit: Yes ED Registration Date: 07/10/18 Care time: The patient presented to the Emergency Department on the above date and was hospitalized for further evaluation of their emergent condition. - New Patient This patient is new to me today: No - Critical Care Critical Care patient: Yes Total Critical Care Time (in minutes): 32 Critical Care Statement: The care of this patient involved high complexity decision making to prevent further life threatening deterioration of the patient 's condition and/or to evaluate & treat vital organ system(s) failure or risk of failure. - Discharge Referral Referred to [facility] Med P.C.: No
[2018-07-15] MEDS ORDERED: DOCUSATE NA 100 MG/10 ML UNIT-DOSE CUPS PO ONE (21:56)
[2018-07-15] MEDS: CHLORHEXIDINE GLUCONATE 4% CLEANSER FOR DECOLONIZATION TP SCH (22:43)
[2018-07-15] MEDS: SENNOSIDES 8.8 MG/5 ML BULK BOTTLE PO SCH (22:45)
[2018-07-16] MEDS: PROPOFOL 1,000,000 MCG/100 ML VIAL IVPB SCH ×2 (00:35→15:28)
[2018-07-16] MEDS ORDERED: DEXTROSE 5%-WATER - 50 ML IVPB ONE ×3 (02:40→17:10)
[2018-07-16] MEDS ORDERED: PIPERACILLIN/TAZOBACTAM 3.375 GM VIAL IVPB ONE ×3 (02:40→17:09)
[2018-07-16] MEDS: PIPERACILLIN/TAZOB 3.375 GM 3.375 GM in DEXTROSE 5%-WATER - 50 ML IVPB SCH ×3 (02:40→17:21)
[2018-07-16] MEDS: HYDROCORTISONE SOD SUCCINATE 100 MG/2 ML VIAL IVPB SCH ×2 (02:41→21:32)
[2018-07-16] MEDS: INSULIN SLIDING SCALE (NOVOLOG) 1 VIAL SQ SCH ×4 (06:11→23:08)
[2018-07-16] MEDS: NOREPINEPHRINE BITARTRATE 8,000 MCG in DEXTROSE 5%-WATER - 492 ML IV SCH (06:43)
[2018-07-16 06:46] LABS: HEMATOCRIT 26.8 % (35.4-49); HEMOGLOBIN 8.9 GM/dL (11.7-16.9); MCH 33.5 pg (25.7-33.7); MCHC 33.1 g/dl (32.0-35.9); MEAN CELL VOLUME 101.2 fl (80-96); MEAN PLT VOLUME 8.9 fl (7.5-11.1); PLATELET COUNT 225 K/MM3 (134-434); RBC 2.65 M/mm3 (4.00-5.60); RDW 18.3 % (11.9-15.9); WHITE BLOOD COUNT 12.7 K/mm3 (4.0-10.0)
[2018-07-16 07:27] LABS: ALK PHOS 174 U/L (45-117); ANION GAP 6 MMOL/L (8-16); BILIRUBIN,TOTAL 0.7 mg/dL (0.2-1); BLOOD UREA NITROGEN 40 mg/dL (7-18); CHLORIDE 113 mmol/L (98-107); CO2 24 mmol/L (21-32); CREATININE 1.1 mg/dL (0.55-1.3); GLUCOSE,RANDOM 269 mg/dL (74-106); MAGNESIUM 2.4 mg/dL (1.8-2.4); PHOSPHOROUS 3.2 mg/dL (2.5-4.9); POTASSIUM 4.8 mmol/L (3.5-5.1); SGOT/AST 106 U/L (15-37); SGPT/ALT 149 U/L (13-61); SODIUM 143 mmol/L (136-145); TOT PROT 5.1 g/dl (6.4-8.2)
[2018-07-16] MEDS: ALBUTEROL SO4 2.5/IPRATROPIUM 0.5 INH SOL 3 ML VIAL.NEB. NEB SCH ×4 (08:50→20:45)
[2018-07-16] MEDS ORDERED: PT OWN MED DRAWER 7, Y5N ONE ×2 (09:35→21:00)
[2018-07-16] MEDS: LEVOTHYROXINE SODIUM 100 MCG VIAL IVPUSH SCH (10:28)
--- NOTE | 2018-07-16 10:28 | PN ---
Teaching Attending Note Name of Resident: Capri Erickson ATTENDING PHYSICIAN STATEMENT I saw and evaluated the patient. I reviewed the resident's note and discussed the case with the resident. I agree with the resident's findings and plan as documented. SUBJECTIVE: Patient seen and examined in the ICU. Remains intubated, off sedation. Lethargic but arousable to tactile stimuli. Remains off NE hemodynamic support. Intake & Output 07/13/18 07/14/18 07/15/18 07/16/18 23:59 23:59 23:59 23:59 Intake Total 3022.8 2076 949 602 Output Total 800 1350 1150 550 Balance 2222.8 726 -201 52 Weight 176 lb 12.972 oz 179 lb 10.828 oz 168 lb 8 oz 166 lb Last Vital Signs Temp Pulse Resp BP Pulse Ox 97.8 F 60 15 118/62 100 07/16/18 08:00 07/16/18 08:00 07/16/18 08:50 07/16/18 08:00 07/16/18 09:00 Active Medications Al Hydroxide/Mg Hydroxide (Mylanta Oral Suspension -) 30 ml PO Q6H PRN PRN Reason: INDIGESTION Albuterol/Ipratropium (Duoneb -) 1 amp NEB RQID [facility] Last Admin: 07/16/18 08:50 Dose: 1 amp Chlorhexidine Gluconate (Hibiclens For Decolonization -) 1 applic TP HS [facility] Last Admin: 07/15/18 22:43 Dose: 1 applic Chlorhexidine Gluconate (Peridex -) 15 ml MM BID [facility] Last Admin: 07/15/18 22:45 Dose: 15 ml Clonazepam (Klonopin -) 0.5 mg PO BID [facility] Last Admin: 07/15/18 22:44 Dose: Not Given Ferrous Sulfate (Feosol -) 325 mg PO DAILY [facility] Last Admin: 07/15/18 10:50 Dose: 325 mg Hydrocortisone Sodium Succinate (Solu-Cortef -) 25 mg IVPB BID [facility] Piperacillin Sod/Tazobactam (Sod 3.375 gm/ Dextrose) 50 mls @ 100 mls/hr IVPB Q8H-IV [facility]; Protocol Last Admin: 07/16/18 02:40 Dose: 100 mls/hr Norepinephrine Bitartrate 8, (000 mcg/ Dextrose) 500 mls @ 18.75 mls/hr IV TITR [facility]; Protocol Last Admin: 07/16/18 06:43 Dose: Not Given Propofol (Diprivan -) 1,000,000 mcg in 100 mls @ 2.303 mls/hr IVPB TITR [facility]; Protocol Last Admin: 07/16/18 00:35 Dose: 5 mcg/kg/min, 2.303 mls/hr Vancomycin HCl 1,250 mg/ (Dextrose) 250 mls @ 166.667 mls/hr IVPB Q24H [facility]; Protocol Last Admin: 07/15/18 15:02 Dose: 166.667 mls/hr Insulin Aspart (Novolog Vial Sliding Scale -) 1 vial SQ Q6HPO [facility]; Protocol Levothyroxine Sodium (Synthroid Injection -) 25 mcg IVPUSH DAILY [facility] Last Admin: 07/15/18 10:41 Dose: 25 mcg Pantoprazole Sodium (Protonix Iv) 40 mg IVPUSH DAILY [facility] Last Admin: 07/15/18 10:38 Dose: 40 mg Polyethylene Glycol (Miralax (For Daily Use) -) 17 gm PO BID [facility] Last Admin: 07/15/18 22:44 Dose: 17 grams Rivaroxaban (Xarelto -) 20 mg PO DAILY@1800 [facility] Last Admin: 07/15/18 17:30 Dose: 20 mg Senna (Senna Oral Solution -) 8.8 mg PO HS [facility] Last Admin: 07/15/18 22:45 Dose: 8.8 mg GENERAL: Intubated and sedated HEAD: Normal with no signs of trauma. EYES: Exophthalmus, EOM intact, no pallor or icterus. EARS, NOSE, THROAT: Ears normal. Dry mucous membranes. NECK: Supple, no JVD. LUNGS: bibasilar rhonchi / rales, no wheeze. HEART: Tachycardic, Regular rate and rhythm, normal S1 and S2 with systolic murmur +. ABDOMEN: Soft, nontender, no organomegaly. MUSCULOSKELETAL: Normal range of motion at all joints. No bony deformities or tenderness. No CVA tenderness. UPPER EXTREMITIES: 2+ pulses, warm, well-perfused. No cyanosis. No clubbing. LOWER EXTREMITIES: Improving B/L erythema of the skin of lower extremities NEUROLOGICAL: sedated Laboratory Results - last 24 hr 07/15/18 07/15/18 07/15/18 10:00 11:05 17:23 WBC RBC Hgb Hct MCV MCH MCHC RDW Plt Count MPV Sodium Potassium Chloride Carbon Dioxide Anion Gap BUN Creatinine Creat Clearance w eGFR POC Glucometer 210.92153 229.58504 Random Glucose Calcium Phosphorus Magnesium Total Bilirubin AST ALT Alkaline Phosphatase Total Protein Albumin Vancomycin Pre-Dose 15.8 L 07/15/18 07/16/18 07/16/18 22:12 06:00 06:00 WBC 12.7 H RBC 2.65 L Hgb 8.9 L Hct 26.8 L MCV 101.2 H MCH 33.5 MCHC 33.1 RDW 18.3 H Plt Count 225 MPV 8.9 Sodium 143 Potassium 4.8 Chloride 113 H Carbon Dioxide 24 Anion Gap 6 L BUN 40 H Creatinine 1.1 Creat Clearance w eGFR > 60 POC Glucometer [phone] Random Glucose 269 H Calcium 8.0 L Phosphorus 3.2 Magnesium 2.4 Total Bilirubin 0.7 AST 106 H ALT 149 H Alkaline Phosphatase 174 H Total Protein 5.1 L Albumin 2.0 L Vancomycin Pre-Dose 07/16/18 06:01 WBC RBC Hgb Hct MCV MCH MCHC RDW Plt Count MPV Sodium Potassium Chloride Carbon Dioxide Anion Gap BUN Creatinine Creat Clearance w eGFR POC Glucometer [phone] Random Glucose Calcium Phosphorus Magnesium Total Bilirubin AST ALT Alkaline Phosphatase Total Protein Albumin Vancomycin Pre-Dose ASSESSMENT/PLAN: Septoc Shock due to tract infection versus Skin pathogens due to LE wounds Systolic / Diastolic CHF COPD HTN HLD CAD S/P PCI x 7 PPM Atrial Fibrillation DM Chronic venous insufficiency BPH s/p TURP CKD Anemia Severe OSAS (RDI 108 per hour / desaturation to 72%) Suspected Euthyroid Sick Syndrome AC Mode of vent / SBTs as tolerated once more awake ABX coverage per ID Aspiration precautions Strict I & O Hold Lasix today and can likely restart tomorrow Wean Hydrocortisone D/C Fludrocortisone Glycemic control AC Hope to extubate in next [address] Claudio Critical care time spent in reviewing chart, evaluating patient and formulating plan - 36 minutes.
[2018-07-16] MEDS: FERROUS SO4 325 MG TABLET (FP) PO SCH (10:29)
[2018-07-16] MEDS: CHLORHEXIDINE GLUCONATE 0.12% 15ML CUP MM SCH ×2 (10:29→21:31)
[2018-07-16] MEDS: POLYETHYLENE GLYCOL 3350 119 GM BTL PO SCH ×2 (10:29→21:31)
--- NOTE | 2018-07-16 10:36 | PN ---
Progress Note, Physician Chief Complaint: Events noted Remains in ICU on mechanical ventilation Opens eyes History of Present Illness: Patient was seen and examined. Chart was reviewed Remains intubated - Current Medication List Current Medications: Active Medications Al Hydroxide/Mg Hydroxide (Mylanta Oral Suspension -) 30 ml PO Q6H PRN PRN Reason: INDIGESTION Albuterol/Ipratropium (Duoneb -) 1 amp NEB RQID [facility] Last Admin: 07/16/18 08:50 Dose: 1 amp Chlorhexidine Gluconate (Hibiclens For Decolonization -) 1 applic TP HS [facility] Last Admin: 07/15/18 22:43 Dose: 1 applic Chlorhexidine Gluconate (Peridex -) 15 ml MM BID [facility] Last Admin: 07/16/18 10:29 Dose: 15 ml Clonazepam (Klonopin -) 0.5 mg PO BID [facility] Last Admin: 07/15/18 22:44 Dose: Not Given Ferrous Sulfate (Feosol -) 325 mg PO DAILY [facility] Last Admin: 07/16/18 10:29 Dose: 325 mg Hydrocortisone Sodium Succinate (Solu-Cortef -) 25 mg IVPB BID [facility] Piperacillin Sod/Tazobactam (Sod 3.375 gm/ Dextrose) 50 mls @ 100 mls/hr IVPB Q8H-IV [facility]; Protocol Last Admin: 07/16/18 10:27 Dose: 100 mls/hr Norepinephrine Bitartrate 8, (000 mcg/ Dextrose) 500 mls @ 18.75 mls/hr IV TITR [facility]; Protocol Last Admin: 07/16/18 06:43 Dose: Not Given Propofol (Diprivan -) 1,000,000 mcg in 100 mls @ 2.303 mls/hr IVPB TITR [facility]; Protocol Last Titration: 07/16/18 10:28 Dose: 0 mcg/kg/min, 0 mls/hr Vancomycin HCl 1,250 mg/ (Dextrose) 250 mls @ 166.667 mls/hr IVPB Q24H [facility]; Protocol Last Admin: 07/15/18 15:02 Dose: 166.667 mls/hr Insulin Aspart (Novolog Vial Sliding Scale -) 1 vial SQ Q6HPO [facility]; Protocol Levothyroxine Sodium (Synthroid Injection -) 25 mcg IVPUSH DAILY [facility] Last Admin: 07/16/18 10:28 Dose: 25 mcg Pantoprazole Sodium (Protonix Iv) 40 mg IVPUSH DAILY [facility] Last Admin: 07/15/18 10:38 Dose: 40 mg Polyethylene Glycol (Miralax (For Daily Use) -) 17 gm PO BID [facility] Last Admin: 07/16/18 10:29 Dose: 17 grams Rivaroxaban (Xarelto -) 20 mg PO DAILY@1800 [facility] Last Admin: 07/15/18 17:30 Dose: 20 mg Senna (Senna Oral Solution -) 8.8 mg PO HS [facility] Last Admin: 07/15/18 22:45 Dose: 8.8 mg - Objective Vital Signs: Vital Signs Temperature 97.8 F 07/16/18 08:00 Pulse Rate 60 07/16/18 08:00 Respiratory Rate 15 07/16/18 08:50 Blood Pressure 118/62 07/16/18 08:00 O2 Sat by Pulse Oximetry (%) 100 07/16/18 09:00 Cardiovascular: Yes: Regular Rate and Rhythm, S1, S2 Respiratory: Yes: Diminished, Mechanically Ventilated Gastrointestinal: Yes: Normal Bowel Sounds, Soft. No: Tenderness Extremities: Yes: Other (LE wound) Edema: Yes Edema: LLE: Trace, RLE: Trace Labs: CBC, BMP 07/16/18 06:00 07/16/18 06:00 INR, PTT INR 1.58 (0.83-1.09) H 07/13/18 08:10 Fibrinogen 423.0 mg/dL (238-498) 07/12/18 05:30 Problem List - Problems (1) Septic shock Code(s): A41.9 - SEPSIS, UNSPECIFIED ORGANISM; R65.21 - SEVERE SEPSIS WITH SEPTIC SHOCK (2) CAD (coronary artery disease) Code(s): I25.10 - ATHSCL HEART DISEASE OF [place] CORONARY ARTERY W/O ANG PCTRS (3) Hypercholesterolemia Code(s): E78.00 - PURE HYPERCHOLESTEROLEMIA, UNSPECIFIED (4) Sick sinus syndrome Code(s): I49.5 - SICK SINUS SYNDROME (5) Presence of permanent cardiac pacemaker Code(s): Z95.0 - PRESENCE OF CARDIAC PACEMAKER (6) CHF (congestive heart failure) Code(s): I50.9 - HEART FAILURE, UNSPECIFIED Qualifiers: Heart failure type: combined systolic and diastolic Heart failure chronicity: chronic Qualified Code(s): I50.42 - Chronic combined systolic ( congestive) and diastolic (congestive) heart failure (7) COPD (chronic obstructive pulmonary disease) Code(s): J44.9 - CHRONIC OBSTRUCTIVE PULMONARY DISEASE, UNSPECIFIED Qualifiers: COPD type: unspecified COPD Qualified Code(s): J44.9 - Chronic obstructive pulmonary disease, unspecified (8) JENNYFER (acute kidney injury) Code(s): N17.9 - ACUTE KIDNEY FAILURE, UNSPECIFIED (9) Diabetes mellitus Code(s): E11.9 - TYPE 2 DIABETES MELLITUS WITHOUT COMPLICATIONS (10) History of percutaneous coronary intervention Code(s): Z98.890 - OTHER SPECIFIED POSTPROCEDURAL STATES (11) Sleep apnea Code(s): G47.30 - SLEEP APNEA, UNSPECIFIED Qualifiers: Sleep apnea type: unspecified type Qualified Code(s): G47.30 - Sleep apnea , unspecified Assessment/Plan 1. Respiratory failure on mechanical ventilation 2. Septic shock 3. Acute on chronic LV failure class II NYHA classification LV failure referable to systolic/diastolic heart failure 4. CAD s/p PCI/stent, angina pectoris 5. Persistent AF [id number] score of 6 on NOAC 6. AV block PPM 7. HTN 8. Hypercholesterolemia 9. DM 10. COPD 11. CKD 12. Anemia PLAN: 1. Vent support - wean as per Critical Care team as tolerated 2. Antibiotic coverage 3. Xarelto 4. Reassess cardiac medication once extubated and when he is able to take PO 5. Monitor renal function and electrolytes Further plans are to follow Solo Peterson MD
[2018-07-16] MEDS: PANTOPRAZOLE SODIUM 40 MG VIAL IVPUSH SCH (12:05)
--- NOTE | 2018-07-16 12:36 | PN ---
Teaching Attending Note Name of Resident: Gwen Richardson ATTENDING PHYSICIAN STATEMENT I saw and evaluated the patient. I reviewed the resident's note and discussed the case with the resident. I agree with the resident's findings and plan as documented. SUBJECTIVE: No new changes, comfortable. OBJECTIVE: Vital Signs Temperature 98.2 F 07/16/18 10:00 Pulse Rate 60 07/16/18 10:00 Respiratory Rate 14 07/16/18 10:00 Blood Pressure 122/63 07/16/18 10:00 O2 Sat by Pulse Oximetry (%) 100 07/16/18 10:00 GENERAL: The patient is intubated and sedated. HEAD: Normal with no signs of trauma. NECK: Trachea midline, full range of motion, supple. LUNGS: positive for scattered rhonchi bilaterally. HEART: Regular rate and rhythm, S1, S2 without murmur, rub or gallop. ABDOMEN: Soft, nontender, nondistended, normoactive bowel sounds. EXTREMITIES: 2+ pulses, warm, well-perfused, no edema. SKIN: Warm, dry, normal turgor, stage 1 sacral ulcer CBCD WBC 12.7 K/mm3 (4.0-10.0) H 07/16/18 06:00 RBC 2.65 M/mm3 (4.00-5.60) L 07/16/18 06:00 Hgb 8.9 GM/dL (11.7-16.9) L 07/16/18 06:00 Hct 26.8 % (35.4-49) L 07/16/18 06:00 MCV 101.2 fl (80-96) H 07/16/18 06:00 MCHC 33.1 g/dl (32.0-35.9) 07/16/18 06:00 RDW 18.3 % (11.9-15.9) H 07/16/18 06:00 Plt Count 225 K/MM3 (134-434) 07/16/18 06:00 MPV 8.9 fl (7.5-11.1) 07/16/18 06:00 CMP Sodium 143 mmol/L (136-145) 07/16/18 06:00 Potassium 4.8 mmol/L (3.5-5.1) 07/16/18 06:00 Chloride 113 mmol/L (98-107) H 07/16/18 06:00 Carbon Dioxide 24 mmol/L (21-32) 07/16/18 06:00 Anion Gap 6 MMOL/L (8-16) L 07/16/18 06:00 BUN 40 mg/dL (7-18) H 07/16/18 06:00 Creatinine 1.1 mg/dL (0.55-1.3) 07/16/18 06:00 Creat Clearance w eGFR > 60 (>60) 07/16/18 06:00 Random Glucose 269 mg/dL (74-106) H 07/16/18 06:00 Calcium 8.0 mg/dL (8.5-10.1) L 07/16/18 06:00 Total Bilirubin 0.7 mg/dL (0.2-1) 07/16/18 06:00 AST 106 U/L (15-37) H 07/16/18 06:00 ALT 149 U/L (13-61) H 07/16/18 06:00 Alkaline Phosphatase 174 U/L (45-117) H 07/16/18 06:00 Total Protein 5.1 g/dl (6.4-8.2) L 07/16/18 06:00 Albumin 2.0 g/dl (3.4-5.0) L 07/16/18 06:00 CARDIAC ENZYMES Creatine Kinase 179 IU/L (26-308) 07/10/18 16:00 Troponin I < 0.02 ng/ml (0.00-0.05) 07/10/18 16:00 Microbiology 07/10/18 11:15 Blood - Peripheral Venous Blood Culture - Final NO GROWTH AFTER 5 DAYS INCUBATION 07/10/18 11:00 Blood - Peripheral Venous Blood Culture - Final NO GROWTH AFTER 5 DAYS INCUBATION 07/11/18 03:30 Leg - Right Lower Gram Stain - Final 07/11/18 03:30 Leg - Right Lower Wound Culture - Preliminary Pseudomonas Aeruginosa Klebsiella Oxytoca Mr S Aureus Enterococcus Faecalis 07/10/18 12:20 Urine - Urine Clean Catch Urine Culture - Final Staphylococcus Warneri ASSESSMENT AND PLAN: Current Medications Generic Name Dose Route Start Last Admin Trade Name Freq PRN Reason Stop Dose Admin Al Hydroxide/Mg Hydroxide 30 ml 07/10/18 19:52 Mylanta Oral Suspension - PO Q6H PRN INDIGESTION Albuterol/Ipratropium 1 amp 07/10/18 20:15 07/16/18 08:50 Duoneb - NEB 1 amp RQID AYDIN Administration Chlorhexidine Gluconate 1 applic 07/10/18 22:00 07/15/18 22:43 Hibiclens For Decolonization - TP 1 applic HS AYDIN Administration Chlorhexidine Gluconate 15 ml 07/13/18 22:00 07/16/18 10:29 Peridex - MM 15 ml BID AYDIN Administration Ferrous Sulfate 325 mg 07/11/18 10:00 07/16/18 10:29 Feosol - PO 325 mg DAILY AYDIN Administration Hydrocortisone Sodium Succinate 25 mg 07/16/18 22:00 Solu-Cortef - IVPB BID AYDIN Piperacillin Sod/Tazobactam 50 mls @ 100 mls/hr 07/11/18 02:00 07/16/18 10:27 Sod 3.375 gm/ Dextrose IVPB 100 mls/hr Q8H-IV AYDIN Administration Protocol Norepinephrine Bitartrate 8, 500 mls @ 18.75 mls/hr 07/11/18 05:45 07/16/18 06:43 000 mcg/ Dextrose IV Not Given TITR AYDIN Protocol 5 MCG/MIN Propofol 1,000,000 mcg in 100 mls @ 2.303 mls/hr 07/12/18 12:15 07/16/18 10: 28 Diprivan - IVPB 0 mcg/kg/min TITR AYDIN 0 mls/hr Titration Protocol 5 MCG/KG/MIN Vancomycin HCl 1,250 mg/ 250 mls @ 166.667 mls/hr 07/12/18 15:00 07/15/18 15: 02 Dextrose IVPB 166.667 mls/hr Q24H AYDIN Administration Protocol Insulin Aspart 1 vial 07/16/18 12:00 07/16/18 12:04 Novolog Vial Sliding Scale - SQ 7 units Q6HPO AYDIN Administration Protocol Levothyroxine Sodium 25 mcg 07/12/18 10:00 07/16/18 10:28 Synthroid Injection - IVPUSH 25 mcg DAILY AYDIN Administration Pantoprazole Sodium 40 mg 07/15/18 10:00 07/16/18 12:05 Protonix Iv IVPUSH 40 mg DAILY AYDIN Administration Polyethylene Glycol 17 gm 07/10/18 22:00 07/16/18 10:29 Miralax (For Daily Use) - PO 17 grams BID AYDIN Administration Rivaroxaban 20 mg 07/15/18 18:00 07/15/18 17:30 Xarelto - PO 20 mg DAILY@1800 AYDIN Administration Senna 8.8 mg 07/15/18 22:00 07/15/18 22:45 Senna Oral Solution - PO 8.8 mg HS AYDIN Administration Microbiology 07/10/18 11:15 Blood - Peripheral Venous Blood Culture - Final NO GROWTH AFTER 5 DAYS INCUBATION 07/10/18 11:00 Blood - Peripheral Venous Blood Culture - Final NO GROWTH AFTER 5 DAYS INCUBATION 07/11/18 03:30 Leg - Right Lower Gram Stain - Final 07/11/18 03:30 Leg - Right Lower Wound Culture - Preliminary Pseudomonas Aeruginosa Klebsiella Oxytoca Mr S Aureus Enterococcus Faecalis 07/10/18 12:20 Urine - Urine Clean Catch Urine Culture - Final Staphylococcus Warneri ASSESSMENT AND PLAN: Patient is a 83 y/o man with h/o CAD, s/p stents, permanent A fib, Systolic heart failure, HTN, HLP, DM , CKD , Anemia, COPD,recent admission for acute CHF exacerbation who was sent from [place] for [place] pain and was found to have hypothermia and hypotension. # Septic shock: continues to be on NE drip, multifactorial due to LE cellulites/ hypercapneic respiratory failure. Cont. Zosyn, Vancomycin .On stress dose HC, weaning trial in am. # Acute hypoxic, hypercapnic respiratory failure s/p Intubation. weaning trial in am. #Abn TFT, likely due to sick euthyroid syndrome, repeat the level post recovery # H/o A fib: On Xarelto continue , intubated. Hold coreg due to hypotension . # H/o CHF: not in acute decompensated CHF now, hold lasix. patient is in ICU , DVt Px: SCDs. patient is DNR
--- NOTE | 2018-07-16 13:26 | PN ---
Physical Exam: SUBJECTIVE: Patient seen and examined at bedside. Intubated, off propofol this morning. Patient opens eyes when called, but otherwise does not follow other commands. No acute events overnight. Restarted propofol drip at minimal dose. OBJECTIVE: Vital Signs Period Temp Pulse Resp BP Sys/Kuo Pulse Ox Last 24 Hr 97 F-98.8 F 60-60 14-21 89-127/50-64 100-100 GENERAL: The patient is intubated, sedated. HEAD: Normal with no signs of trauma. NECK: Trachea midline, full range of motion, supple. LUNGS: +scattered rhonchi bilaterally. HEART: Regular rate and rhythm, S1, S2 without murmur, rub or gallop. ABDOMEN: Soft, nontender, nondistended, normoactive bowel sounds. KOMAL: No hemorrhoids, soft brown stools, no gross blood, no mass or fissures palpated. UPPER EXTREMITIES: 2+ pulses, warm, well-perfused, no edema. LOWER EXTREMITIES: +circumferential erythema and warmth bilaterally from ankle to mid-baker area with minimal serosanguinous weeping lesions. SKIN: Warm, dry, normal turgor, +stage 1 sacral ulcer Laboratory Results - last 24 hr 07/13/18 07/15/18 07/15/18 08:10 17:23 22:12 WBC RBC Hgb Hct MCV MCH MCHC RDW Plt Count MPV Sodium Potassium Chloride Carbon Dioxide Anion Gap BUN Creatinine Creat Clearance w eGFR POC Glucometer [phone] Random Glucose Calcium Phosphorus Magnesium Total Bilirubin AST ALT Alkaline Phosphatase Total Protein Albumin Blood Type O POSITIVE Antibody Screen Negative Crossmatch See Detail 07/16/18 07/16/18 07/16/18 06:00 06:00 06:01 WBC 12.7 H RBC 2.65 L Hgb 8.9 L Hct 26.8 L MCV 101.2 H MCH 33.5 MCHC 33.1 RDW 18.3 H Plt Count 225 MPV 8.9 Sodium 143 Potassium 4.8 Chloride 113 H Carbon Dioxide 24 Anion Gap 6 L BUN 40 H Creatinine 1.1 Creat Clearance w eGFR > 60 POC Glucometer [phone] Random Glucose 269 H Calcium 8.0 L Phosphorus 3.2 Magnesium 2.4 Total Bilirubin 0.7 AST 106 H ALT 149 H Alkaline Phosphatase 174 H Total Protein 5.1 L Albumin 2.0 L Blood Type Antibody Screen Crossmatch Active Medications Generic Name Dose Route Start Last Admin Trade Name Freq PRN Reason Stop Dose Admin Al Hydroxide/Mg Hydroxide 30 ml 07/10/18 19:52 Mylanta Oral Suspension - PO Q6H PRN INDIGESTION Albuterol/Ipratropium 1 amp 07/10/18 20:15 07/16/18 08:50 Duoneb - NEB 1 amp RQID AYDIN Administration Chlorhexidine Gluconate 1 applic 07/10/18 22:00 07/15/18 22:43 Hibiclens For Decolonization - TP 1 applic HS AYDIN Administration Chlorhexidine Gluconate 15 ml 07/13/18 22:00 07/16/18 10:29 Peridex - MM 15 ml BID AYDIN Administration Ferrous Sulfate 325 mg 07/11/18 10:00 07/16/18 10:29 Feosol - PO 325 mg DAILY AYDIN Administration Hydrocortisone Sodium Succinate 25 mg 07/16/18 22:00 Solu-Cortef - IVPB BID AYDIN Piperacillin Sod/Tazobactam 50 mls @ 100 mls/hr 07/11/18 02:00 07/16/18 10:27 Sod 3.375 gm/ Dextrose IVPB 100 mls/hr Q8H-IV AYDIN Administration Protocol Norepinephrine Bitartrate 8, 500 mls @ 18.75 mls/hr 07/11/18 05:45 07/16/18 06:43 000 mcg/ Dextrose IV Not Given TITR AYDIN Protocol 5 MCG/MIN Propofol 1,000,000 mcg in 100 mls @ 2.303 mls/hr 07/12/18 12:15 07/16/18 10: 28 Diprivan - IVPB 0 mcg/kg/min TITR AYDIN 0 mls/hr Titration Protocol 5 MCG/KG/MIN Vancomycin HCl 1,250 mg/ 250 mls @ 166.667 mls/hr 07/12/18 15:00 07/15/18 15: 02 Dextrose IVPB 166.667 mls/hr Q24H AYDIN Administration Protocol Insulin Aspart 1 vial 07/16/18 12:00 07/16/18 12:04 Novolog Vial Sliding Scale - SQ 7 units Q6HPO AYDIN Administration Protocol Levothyroxine Sodium 25 mcg 07/12/18 10:00 07/16/18 10:28 Synthroid Injection - IVPUSH 25 mcg DAILY AYDIN Administration Pantoprazole Sodium 40 mg 07/15/18 10:00 07/16/18 12:05 Protonix Iv IVPUSH 40 mg DAILY AYDIN Administration Polyethylene Glycol 17 gm 07/10/18 22:00 07/16/18 10:29 Miralax (For Daily Use) - PO 17 grams BID AYDIN Administration Rivaroxaban 20 mg 07/15/18 18:00 07/15/18 17:30 Xarelto - PO 20 mg DAILY@1800 AYDIN Administration Senna 8.8 mg 07/15/18 22:00 07/15/18 22:45 Senna Oral Solution - PO 8.8 mg HS AYDIN Administration ASSESSMENT/PLAN: Patient is an 83 year old male with significant past medical history of sys/ diastolic CHF; COPD; HTN; HLD; CAD (s/p stenting x7 and pacemaker); Atrial Fibrillation; DM; chronic venous insufficiency; BPH s/p TURP; CKD; anemia for B/ L leg pain and abnormal gait was sent from [facility] for evaluation of B/L lower extremity pain. #Infectious Disease 1)Septic shock likely secondary to cellulitis of B/L Lower extremity, improving -Off levophed, maintaining MAP >65 -IV Solu-cortef 25mg q6h --> q12, then will discontinue tomorrow -Fludrocortisone 0.05mg OGT discontinued -ID (Dr. Thomas) consulted. Recommendations appreciated. -Continue Vancomycin 1250mg daily Day 7 and Zosyn 3.375 q8h Day 8 -Neuro status while off sedation: opens eyes when called, but does not follow other commands. -Wound cultures - Presumptive Pseudomonas, Lactose fermenting GNB, Presumptive MRSA, Group D Strep or Enterococcus -Contact isolation precautions -Dr. Estrada consulted. Recommendations appreciated. -Air mattress recommended. -Ensure off-loading to all bony areas with Allevyn/Optifoam -Clean open wounds with normal saline and apply Silvadene -Continue antibiotics. -Podiatry(Dr. Greene) consulted for avulsed L great toe nail. -Heel pads b/l. Will debride nail left hallux. 2)Lactic acidosis: likely 2/2 sepsis, resolved -Lactic acid 2.8 --> 1.5 #Pulmonology 1)Acute Hypoxic and Hypercapneic respiratory failure: Likely 2/2 Pneumonia and Sepsis -Intubated. On volume AC: 12/440/30/5 -On sedation holiday today. Patient opens eyes, but does not follow other commands. -On IV Vanc/Zosyn. -OG tube placed. 2)COPD -Duoneb QID 3)Obstructive Sleep Apnea -intubated -Once extubated, resume bipap 20/06 #Endocrinology 1)Hypothyroidism -TSH elevated 14.8 --> 13.2 -free T4 0.8 -Hypotension, hypothermia, hypoglycemia likely 2/2 sepsis. -Endocrinology (Dr. Duron) consulted. Recommendations appreciated. -IV synthroid 25mcg daily until able to take PO -IV antibiotic 2)Diabetes Mellitus -A1c - 6.8 -Insulin sliding scale implemented -BGM ACHS -will monitor hypoglycemia #Cardiovascular 1)Systolic/Diastolic CHF: not on exacerbation -BNP 1180. -Echocardiogram done. -Hold Lasix for now -Gentle hydration PRN 2)Prolonged QTc: 614 -Avoid medications causing prolonged QTc. -Repeat EKG: QTc 535 3)CAD (s/p stenting x7 and pacemaker) -Continue [id number] PO HS -On Xarelto 20mg daily 4)Hypertension -hold home anti-hypertensive medications -Will monitor BP. Maintain MAP >65 5)Hyperlipidemia -Lipitor 40mg PO HS 6)Atrial Fibrillation: rate controlled -On Xarelto 20mg daily #Gastroenterology 1)Transaminitis likely 2/2 sepsis, improving -LFTs trending down -Liver ultrasound done- Right pleural effusion and trace ascites. Thick walled gallbladder with biliary sludge. -Hepatitis panel. -will continue to monitor 2)Coffee ground-containing gastric aspirate likely 2/2 acute gastritis, resolved -GI (Dr. Rodriguez) consulted. Recommendations appreciated. -Likely 2/2 septic shock along with component of stress gastritis -Protonix 40mg IV daily. -Avoid NSAIDs #Nephrology 1)CKD -elevated BUN likely 2/2 to dehydration -IVF PRN 2)Hyperkalemia, resolved -will continue to monitor #Hematology 1)Macrocytic anemia: stable -H/H 8.9/26.8 -monitor CBC #FEN -IVF boluses PRN -Routine bmp monitoring -OG tube feeding. #Prophylaxis 1)DVT - on Xarelto 20mg daily 2)GI - Protonix 40mg IV daily #Disposition -DNR -Palliative care on board. -ICU for closer monitoring Visit type - Emergency Visit Emergency Visit: Yes ED Registration Date: 07/10/18 Care time: The patient presented to the Emergency Department on the above date and was hospitalized for further evaluation of their emergent condition. - New Patient This patient is new to me today: Yes Date on this admission: 07/16/18 - Critical Care Critical Care patient: Yes Total Critical Care Time (in minutes): 45 Critical Care Statement: The care of this patient involved high complexity decision making to prevent further life threatening deterioration of the patient 's condition and/or to evaluate & treat vital organ system(s) failure or risk of failure.
[2018-07-16] MEDS: VANCOMYCIN 1,250 MG in DEXTROSE 5%-WATER - 250 ML IVPB SCH (15:15)
--- NOTE | 2018-07-16 16:38 | PN ---
Physical Exam: SUBJECTIVE: Patient seen and examined this morning in the ICU. Pressors were d/c 'ed yesterday. No acute overnight events as per nursing staff. OBJECTIVE: Vital Signs Period Temp Pulse Resp BP Sys/Kuo Pulse Ox Last 24 Hr 97 F-98.2 F 60-60 12-21 103-127/57-65 100-100 GENERAL: Intubated and Sedated HEAD: NCAT EYES: Dry membranes NECK: B/L JVD, Right Sided IJ Placed LUNGS: Scattered Rhonchi HEART: Regular rate and rhythm, normal S1 and S2, LLSB Murmur ABDOMEN: Soft, nontender, not distended, normoactive bowel sounds BACK: Stage 2 ulcer superior to the gluteal fold without active drainage or surrounding erythema EXTREMITIES: 2+ pulses, No edema. Multiple, Lower extremity wounds without active drainage, Erythema and warmth continue to improve. Laboratory Results - last 24 hr 07/16/18 07/16/18 07/16/18 06:00 06:00 06:01 WBC 12.7 H RBC 2.65 L Hgb 8.9 L Hct 26.8 L MCV 101.2 H MCH 33.5 MCHC 33.1 RDW 18.3 H Plt Count 225 MPV 8.9 Sodium 143 Potassium 4.8 Chloride 113 H Carbon Dioxide 24 Anion Gap 6 L BUN 40 H Creatinine 1.1 Creat Clearance w eGFR > 60 POC Glucometer [phone] Random Glucose 269 H Calcium 8.0 L Phosphorus 3.2 Magnesium 2.4 Total Bilirubin 0.7 AST 106 H ALT 149 H Alkaline Phosphatase 174 H Total Protein 5.1 L Albumin 2.0 L Blood Type Antibody Screen Crossmatch Microbiology 07/10/18 11:15 Blood - Peripheral Venous Blood Culture - Final NO GROWTH AFTER 5 DAYS INCUBATION 07/10/18 11:00 Blood - Peripheral Venous Blood Culture - Final NO GROWTH AFTER 5 DAYS INCUBATION 07/11/18 03:30 Leg - Right Lower Gram Stain - Final 07/11/18 03:30 Leg - Right Lower Wound Culture - Preliminary Pseudomonas Aeruginosa Klebsiella Oxytoca Mr S Aureus Enterococcus Faecalis 07/10/18 12:20 Urine - Urine Clean Catch Urine Culture - Final Staphylococcus Warneri Active Medications Al Hydroxide/Mg Hydroxide (Mylanta Oral Suspension -) 30 ml PO Q6H PRN PRN Reason: INDIGESTION Albuterol/Ipratropium (Duoneb -) 1 amp NEB RQID [facility] Last Admin: 07/16/18 13:00 Dose: 1 amp Chlorhexidine Gluconate (Hibiclens For Decolonization -) 1 applic TP HS [facility] Last Admin: 07/15/18 22:43 Dose: 1 applic Chlorhexidine Gluconate (Peridex -) 15 ml MM BID [facility] Last Admin: 07/16/18 10:29 Dose: 15 ml Ferrous Sulfate (Feosol -) 325 mg PO DAILY [facility] Last Admin: 07/16/18 10:29 Dose: 325 mg Hydrocortisone Sodium Succinate (Solu-Cortef -) 25 mg IVPB BID [facility] Piperacillin Sod/Tazobactam (Sod 3.375 gm/ Dextrose) 50 mls @ 100 mls/hr IVPB Q8H-IV [facility]; Protocol Last Admin: 07/16/18 10:27 Dose: 100 mls/hr Norepinephrine Bitartrate 8, (000 mcg/ Dextrose) 500 mls @ 18.75 mls/hr IV TITR [facility]; Protocol Last Admin: 07/16/18 06:43 Dose: Not Given Propofol (Diprivan -) 1,000,000 mcg in 100 mls @ 2.303 mls/hr IVPB TITR [facility]; Protocol Last Admin: 07/16/18 15:28 Dose: 5 mcg/kg/min, 2.303 mls/hr Vancomycin HCl 1,250 mg/ (Dextrose) 250 mls @ 166.667 mls/hr IVPB Q24H [facility]IN; Protocol Last Admin: 07/16/18 15:15 Dose: 166.667 mls/hr Insulin Aspart (Novolog Vial Sliding Scale -) 1 vial SQ Q6HPO [facility]; Protocol Last Admin: 07/16/18 12:04 Dose: 7 units Levothyroxine Sodium (Synthroid Injection -) 25 mcg IVPUSH DAILY [facility] Last Admin: 07/16/18 10:28 Dose: 25 mcg Pantoprazole Sodium (Protonix Iv) 40 mg IVPUSH DAILY [facility] Last Admin: 07/16/18 12:05 Dose: 40 mg Polyethylene Glycol (Miralax (For Daily Use) -) 17 gm PO BID [facility] Last Admin: 07/16/18 10:29 Dose: 17 grams Rivaroxaban (Xarelto -) 20 mg PO DAILY@1800 [facility] Last Admin: 07/15/18 17:30 Dose: 20 mg Senna (Senna Oral Solution -) 8.8 mg PO HS [facility] Last Admin: 07/15/18 22:45 Dose: 8.8 mg IMAGING: -CXR (07/10): The prior study of 06/09/2018, again is a scoliosis with convexity to the right, weak inspiration, multi lead pacemaker, distended bowel in the upper abdomen, previous right shoulder surgery and there are increased left hemithorax markings compatible with some atelectasis and/or infiltrate. Follow- up recommended. -CXR (07/11): Since the prior study of 07/10/2018, there appears to be major consolidation in the left hemithorax with some sparing at the left base. There is a prominent mediastinum with pacemaker and distended bowel in the abdomen. The right lung is clear. There is a scoliosis with convexity to the right. There are degenerative spine and shoulder changes. There are left shoulder calcifications. A follow-up study is suggested with deep inspiration to clarify the left hemithorax changes. The sparing of the left base is unusual and one must make sure this is not a subtle pneumothorax. Again follow-up imaging is suggested -CXR (07/11): Since the prior study of 07/11/2018 at 0704 hours, the left hemithorax is slightly better aerated with still some infiltrate/atelectasis and no sign of a gross pneumothorax. The remainder the study is unchanged -CXR (07/11): Since 1003 hours, new right jugular line has been inserted and the tip is in the right atrium. The remainder the study is unchanged. There is no sign of a pneumothorax. -CXR (07/12): A single AP view of the chest reveals motion artifact, weak inspiration, chin artifact, right jugular line with tip in junction of SVC and right atrium, left-sided double lead pacemaker, sclerotic knob, previous right humeral fracture stabilization with hardware and some congestive changes with atelectasis or infiltrate on the left. There is bowel in the right upper quadrant. Since the prior exam of 07/11/2018, there is no significant change. -CXR (07/12): An AP chest reveals an endotracheal tube, right jugular line and pacemaker. There is a large heart, sclerotic unfolded aorta and congestive changes with bilateral effusions with left base infiltrate or atelectasis. The pulmonary and pleural changes have increased and the endotracheal tube is new since 07/12/2018. An OG tube is not easily delineated in this study. -CXR (07/13): No significant change -CXR (07/14): Since 07/13/2018, are progressive bilateral pulmonary and pleural changes. The endotracheal tube, right jugular line, pacemaker and previous right humeral stabilization with hardware is again noted. -CXR (07/15): Improvement. Residual fluid and atelectasis left base. -Liver US: Right pleural effusion and trace ascites. Thick walled gallbladder with biliary sludge. -DUPLEX US: No evidence of deep venous thrombosis. -CT Head without contrast: No evidence of acute intracranial pathology. -EKG: Ventricular-paced rhythm, VR 60, QTc 614 -ECHO: Technically limited, LV Systolic function is moderately reduced, LV Is not well visualized, RA and LA mildly dilated, Mild to Mod TR, Mild MR, RV systolic pressure normal, Septal motion is consistent with conduction abnormality, Regional wall motion abnormalities cannot be excluded ASSESSMENT/PLAN: 83 y/o M with PMHx of CHF, COPD, HTN, HLD, CAD (s/p stenting x7 and pacemaker), Atrial Fibrillation, DM, chronic venous insufficiency, BPH was BIBEMS from [facility] for AMS and was admitted to the ICU for severe sepsis due to Cellulitus. #Septic Shock -Likely due B/L lower extremity cellulitis, Wound cultures noted above -Lactic acidosis resolved -Sedation d/c'ed -Bipap D/C'ed, Intubated (07/12) on volume AC: 12/440/50/5; Extubation likely tmrw -Central Line placed (07/11); Levophed d/c'ed this afternoon -Maintain MAP >65 -Bear-Hugger d/c'ed -CVP monitoring q12h -LR D/C'ed -Continue Zosyn (Started on 07/10), Vanco (started on 07/12) -Blood, urine culture noted above -Hold home Anti-HTN meds -Wean off Hydrocortisone, D/C Fludrocortisone -Chest PT -Contact isolation precautions -ID (Dr. Thomas), Vascular surgery (Dr. Estrada), Cardiology (Dr. Peterson), Podiatry ( Dr. Greene) consulted, Appreciate recs #Coffee ground gastric aspirate -Likely due to acute gastritis -OG Tube placed (07/12), tube feeds resumed -Hgb Reached 6.5, Given 1 unit pRBCs (07/13) -FOBT Positive -GI Consulted, Appreciate Rec's, Protonix 40mg IVPB daily -Conservative management without endoscopic intervention #Transaminitis -LFTs trending down; Continue to trend -Liver US noted above -Hepatitis panel #Hyperkalemia -Acidosis resolved -Received Calcium gluconate, D50, Insulin, Repeat EKG -OG Tube placed (07/12); Kayexelate given -Continue to monitor #Elevated TSH -Likely due to Severe Sepsis; Consider Euthyroid Sick Syndrome, Less likely Myxedema coma -Endocrinology (Dr. Duron) Consulted, Appreciate Rec's -TSH Trending down; T3, T4 noted; Cortisol, ACTH pending -Continue on IV synthroid 25mcg Daily -Repeat labs after sepsis clears #AFib -Xarelto -Home dose Beta humberto held in the setting of Hypotension #DM -ISS, BGMs ACTID -A1c 6.8% -Hold Oral hypoglycemics #FEN -LR D/C'ed -Monitor for Hyperkalemia -Tube feeds #PPx -DVT: Xarelto Dispo: ICU placement; Extubation likely tmrw CODE STATUS: DNR Visit type - Emergency Visit Emergency Visit: Yes ED Registration Date: 07/10/18 Care time: The patient presented to the Emergency Department on the above date and was hospitalized for further evaluation of their emergent condition. - New Patient This patient is new to me today: No - Critical Care Critical Care patient: Yes Total Critical Care Time (in minutes): 40 Critical Care Statement: The care of this patient involved high complexity decision making to prevent further life threatening deterioration of the patient 's condition and/or to evaluate & treat vital organ system(s) failure or risk of failure. - Discharge Referral Referred to [facility] No
[2018-07-16] MEDS: RIVAROXABAN 20 MG TABLET PO SCH (17:21)
--- NOTE | 2018-07-16 17:42 | PN ---
Progress Note, Physician History of Present Illness: clinically patient stable still intubated and sedated has remaining stable wbc mildly higher - Current Medication List Current Medications: Active Medications Al Hydroxide/Mg Hydroxide (Mylanta Oral Suspension -) 30 ml PO Q6H PRN PRN Reason: INDIGESTION Albuterol/Ipratropium (Duoneb -) 1 amp NEB RQID [facility] Last Admin: 07/16/18 13:00 Dose: 1 amp Chlorhexidine Gluconate (Hibiclens For Decolonization -) 1 applic TP HS [facility] Last Admin: 07/15/18 22:43 Dose: 1 applic Chlorhexidine Gluconate (Peridex -) 15 ml MM BID [facility] Last Admin: 07/16/18 10:29 Dose: 15 ml Ferrous Sulfate (Feosol -) 325 mg PO DAILY [facility] Last Admin: 07/16/18 10:29 Dose: 325 mg Hydrocortisone Sodium Succinate (Solu-Cortef -) 25 mg IVPB BID [facility] Piperacillin Sod/Tazobactam (Sod 3.375 gm/ Dextrose) 50 mls @ 100 mls/hr IVPB Q8H-IV [facility]; Protocol Last Admin: 07/16/18 17:21 Dose: 100 mls/hr Norepinephrine Bitartrate 8, (000 mcg/ Dextrose) 500 mls @ 18.75 mls/hr IV TITR [facility]; Protocol Last Admin: 07/16/18 06:43 Dose: Not Given Propofol (Diprivan -) 1,000,000 mcg in 100 mls @ 2.303 mls/hr IVPB TITR [facility]; Protocol Last Admin: 07/16/18 15:28 Dose: 5 mcg/kg/min, 2.303 mls/hr Vancomycin HCl 1,250 mg/ (Dextrose) 250 mls @ 166.667 mls/hr IVPB Q24H [facility]; Protocol Last Admin: 07/16/18 15:15 Dose: 166.667 mls/hr Insulin Aspart (Novolog Vial Sliding Scale -) 1 vial SQ Q6HPO [facility]; Protocol Last Admin: 07/16/18 12:04 Dose: 7 units Levothyroxine Sodium (Synthroid Injection -) 25 mcg IVPUSH DAILY [facility] Last Admin: 07/16/18 10:28 Dose: 25 mcg Pantoprazole Sodium (Protonix Iv) 40 mg IVPUSH DAILY [facility] Last Admin: 07/16/18 12:05 Dose: 40 mg Polyethylene Glycol (Miralax (For Daily Use) -) 17 gm PO BID [facility] Last Admin: 07/16/18 10:29 Dose: 17 grams Rivaroxaban (Xarelto -) 20 mg PO DAILY@1800 [facility] Last Admin: 07/16/18 17:21 Dose: 20 mg Senna (Senna Oral Solution -) 8.8 mg PO HS [facility] Last Admin: 07/15/18 22:45 Dose: 8.8 mg - Objective Vital Signs: Vital Signs Temperature 98 F 07/16/18 16:00 Pulse Rate 60 07/16/18 16:00 Respiratory Rate 12 07/16/18 16:19 Blood Pressure 120/68 07/16/18 16:00 O2 Sat by Pulse Oximetry (%) 100 07/16/18 10:00 Constitutional: Yes: Other Cardiovascular: Yes: S1, S2 Respiratory: Yes: Intubated, Mechanically Ventilated Gastrointestinal: Yes: Normal Bowel Sounds, Soft Musculoskeletal: Yes: WNL Extremities: Yes: WNL Neurological: Yes: Other Labs: CBC, BMP 07/16/18 06:00 07/16/18 06:00 INR, PTT INR 1.58 (0.83-1.09) H 07/13/18 08:10 Fibrinogen 423.0 mg/dL (238-498) 07/12/18 05:30 Assessment/Plan septic shock Systolic / Diastolic CHF COPD HTN HLD CAD PPM Atrial Fibrillation DM Chronic venous insufficiency BPH s/p TURP CKD Anemia plan continue abx patient stable wound care rest as per icu nutrition plan for extubation cc 40 min
[2018-07-16] MEDS: CHLORHEXIDINE GLUCONATE 4% CLEANSER FOR DECOLONIZATION TP SCH (21:30)
[2018-07-16] MEDS: SENNOSIDES 8.8 MG/5 ML BULK BOTTLE PO SCH (21:32)
--- NOTE | 2018-07-16 22:05 | PN ---
Progress Note, Physician Chief Complaint: responsive to verbal stimuli History of Present Illness: 83y M hx of dm,type 2,CHF, COPD (not on home o2), HTN, CAD (stent x 7, sp PM), venous insufficiency, septic and hypotensive requiring intubation for respiratory failure and has remained dependent on respirator,yet more alert. - Current Medication List Current Medications: Active Medications Al Hydroxide/Mg Hydroxide (Mylanta Oral Suspension -) 30 ml PO Q6H PRN PRN Reason: INDIGESTION Albuterol/Ipratropium (Duoneb -) 1 amp NEB RQID [facility] Last Admin: 07/16/18 20:45 Dose: 1 amp Chlorhexidine Gluconate (Hibiclens For Decolonization -) 1 applic TP HS [facility] Last Admin: 07/16/18 21:30 Dose: 1 applic Chlorhexidine Gluconate (Peridex -) 15 ml MM BID [facility] Last Admin: 07/16/18 21:31 Dose: 15 ml Ferrous Sulfate (Feosol -) 325 mg PO DAILY [facility] Last Admin: 07/16/18 10:29 Dose: 325 mg Hydrocortisone Sodium Succinate (Solu-Cortef -) 25 mg IVPB BID [facility] Last Admin: 07/16/18 21:32 Dose: 25 mg Piperacillin Sod/Tazobactam (Sod 3.375 gm/ Dextrose) 50 mls @ 100 mls/hr IVPB Q8H-IV [facility]; Protocol Last Admin: 07/16/18 17:21 Dose: 100 mls/hr Norepinephrine Bitartrate 8, (000 mcg/ Dextrose) 500 mls @ 18.75 mls/hr IV TITR [facility]; Protocol Last Admin: 07/16/18 06:43 Dose: Not Given Propofol (Diprivan -) 1,000,000 mcg in 100 mls @ 2.303 mls/hr IVPB TITR [facility]; Protocol Last Admin: 07/16/18 15:28 Dose: 5 mcg/kg/min, 2.303 mls/hr Vancomycin HCl 1,250 mg/ (Dextrose) 250 mls @ 166.667 mls/hr IVPB Q24H [facility]; Protocol Last Admin: 07/16/18 15:15 Dose: 166.667 mls/hr Insulin Aspart (Novolog Vial Sliding Scale -) 1 vial SQ Q6HPO [facility]; Protocol Last Admin: 07/16/18 17:48 Dose: 7 units Levothyroxine Sodium (Synthroid Injection -) 25 mcg IVPUSH DAILY [facility] Last Admin: 07/16/18 10:28 Dose: 25 mcg Pantoprazole Sodium (Protonix Iv) 40 mg IVPUSH DAILY [facility] Last Admin: 07/16/18 12:05 Dose: 40 mg Polyethylene Glycol (Miralax (For Daily Use) -) 17 gm PO BID [facility] Last Admin: 07/16/18 21:31 Dose: 17 grams Rivaroxaban (Xarelto -) 20 mg PO DAILY@1800 [facility] Last Admin: 07/16/18 17:21 Dose: 20 mg Senna (Senna Oral Solution -) 8.8 mg PO HS [facility] Last Admin: 07/16/18 21:32 Dose: 8.8 mg - Objective Vital Signs: Vital Signs Temperature 97.8 F 07/16/18 18:00 Pulse Rate 60 07/16/18 20:00 Respiratory Rate 12 07/16/18 21:07 Blood Pressure 121/62 07/16/18 20:00 O2 Sat by Pulse Oximetry (%) 100 07/16/18 19:53 Constitutional: Yes: Well Nourished Eyes: Yes: EOM Intact HENT: Yes: Normocephalic Neck: Yes: Trachea Midline Cardiovascular: Yes: Tachycardia Respiratory: Yes: Intubated Gastrointestinal: Yes: Soft ...Rectal Exam: Yes: Deferred Genitourinary: Yes: WNL Musculoskeletal: Yes: Muscle Weakness Edema: LLE: 1+, RLE: 1+ Neurological: Yes: Alert Labs: CBC, BMP 07/16/18 06:00 07/16/18 06:00 INR, PTT INR 1.58 (0.83-1.09) H 07/13/18 08:10 Fibrinogen 423.0 mg/dL (238-498) 07/12/18 05:30 Problem List - Problems (1) CHF (congestive heart failure) Code(s): I50.9 - HEART FAILURE, UNSPECIFIED Qualifiers: Heart failure type: combined systolic and diastolic Heart failure chronicity: chronic Qualified Code(s): I50.42 - Chronic combined systolic ( congestive) and diastolic (congestive) heart failure (2) Hypotension Code(s): I95.9 - HYPOTENSION, UNSPECIFIED Qualifiers: Hypotension type: unspecified hypotension type Qualified Code(s): I95.9 - Hypotension, unspecified (3) Hypothyroid Code(s): E03.9 - HYPOTHYROIDISM, UNSPECIFIED Qualifiers: Hypothyroidism type: unspecified Qualified Code(s): E03.9 - Hypothyroidism , unspecified (4) TSH elevation Code(s): R79.89 - OTHER SPECIFIED ABNORMAL FINDINGS OF BLOOD CHEMISTRY (5) ASHD (arteriosclerotic heart disease) Code(s): I25.10 - ATHSCL HEART DISEASE OF [place] CORONARY ARTERY W/O ANG PCTRS Assessment/Plan Current Active Problems Abnormal liver function tests (Acute) CAD (coronary artery disease) (Acute) CHF (congestive heart failure) (Acute) COPD (chronic obstructive pulmonary disease) (Acute) Coffee ground emesis (Acute) Hypercholesterolemia (Acute) Hypotension (Acute) Hypothyroid (Acute) Presence of permanent cardiac pacemaker (Acute) Septic shock (Acute) Sick sinus syndrome (Acute) TSH elevation (Acute) Abnormal Lab Results 07/13/18 07/16/18 07/16/18 08:10 06:00 06:00 WBC 12.7 H RBC 2.65 L Hgb 8.9 L Hct 26.8 L MCV 101.2 H RDW 18.3 H Chloride 113 H Anion Gap 6 L BUN 40 H Random Glucose 269 H Calcium 8.0 L AST 106 H ALT 149 H Alkaline Phosphatase 174 H Total Protein 5.1 L Albumin 2.0 L Crossmatch See Detail Laboratory Results - last 24 hr 07/13/18 07/15/18 07/16/18 08:10 22:12 06:00 WBC 12.7 H RBC 2.65 L Hgb 8.9 L Hct 26.8 L MCV 101.2 H MCH 33.5 MCHC 33.1 RDW 18.3 H Plt Count 225 MPV 8.9 Sodium Potassium Chloride Carbon Dioxide Anion Gap BUN Creatinine Creat Clearance w eGFR POC Glucometer [phone] Random Glucose Calcium Phosphorus Magnesium Total Bilirubin AST ALT Alkaline Phosphatase Total Protein Albumin Blood Type O POSITIVE Antibody Screen Negative Crossmatch See Detail 07/16/18 07/16/18 07/16/18 06:00 06:01 12:03 WBC RBC Hgb Hct MCV MCH MCHC RDW Plt Count MPV Sodium 143 Potassium 4.8 Chloride 113 H Carbon Dioxide 24 Anion Gap 6 L BUN 40 H Creatinine 1.1 Creat Clearance w eGFR > 60 POC Glucometer [phone] Random Glucose 269 H Calcium 8.0 L Phosphorus 3.2 Magnesium 2.4 Total Bilirubin 0.7 AST 106 H ALT 149 H Alkaline Phosphatase 174 H Total Protein 5.1 L Albumin 2.0 L Blood Type Antibody Screen Crossmatch 07/16/18 17:46 WBC RBC Hgb Hct MCV MCH MCHC RDW Plt Count MPV Sodium Potassium Chloride Carbon Dioxide Anion Gap BUN Creatinine Creat Clearance w eGFR POC Glucometer [phone] Random Glucose Calcium Phosphorus Magnesium Total Bilirubin AST ALT Alkaline Phosphatase Total Protein Albumin Blood Type Antibody Screen Crossmatch Laboratory Tests 07/12/18 05:30 TSH 11.50 H D plan: switch to po synthroid 50mcg daily support care taper iv steroid to off bgm qid novolog scale levemir 15 units am
[2018-07-17] MEDS ORDERED: PIPERACILLIN/TAZOBACTAM 3.375 GM VIAL IVPB ONE ×3 (02:33→17:30)
[2018-07-17] MEDS ORDERED: DEXTROSE 5%-WATER - 50 ML IVPB ONE ×3 (02:33→17:30)
[2018-07-17] MEDS: PIPERACILLIN/TAZOB 3.375 GM 3.375 GM in DEXTROSE 5%-WATER - 50 ML IVPB SCH ×3 (02:34→17:40)
[2018-07-17 05:59] LABS: HEMATOCRIT 26.4 % (35.4-49); HEMOGLOBIN 8.7 GM/dL (11.7-16.9); MCH 33.6 pg (25.7-33.7); MCHC 33.1 g/dl (32.0-35.9); MEAN CELL VOLUME 101.5 fl (80-96); PLATELET COUNT 229 K/MM3 (134-434); RDW 17.8 % (11.9-15.9); WHITE BLOOD COUNT 13.6 K/mm3 (4.0-10.0)
[2018-07-17 06:21] LABS: ANION GAP 4 MMOL/L (8-16); BLOOD UREA NITROGEN 31 mg/dL (7-18); CALCIUM 7.9 mg/dL (8.5-10.1); CHLORIDE 114 mmol/L (98-107); CO2 28 mmol/L (21-32); CREATININE 0.9 mg/dL (0.55-1.3); GLUCOSE,RANDOM 219 mg/dL (74-106); MAGNESIUM 2.1 mg/dL (1.8-2.4); PHOSPHOROUS 2.8 mg/dL (2.5-4.9); POTASSIUM 4.9 mmol/L (3.5-5.1); SODIUM 146 mmol/L (136-145)
[2018-07-17] MEDS: NOREPINEPHRINE BITARTRATE 8,000 MCG in DEXTROSE 5%-WATER - 492 ML IV SCH (06:27)
[2018-07-17] MEDS: INSULIN SLIDING SCALE (NOVOLOG) 1 VIAL SQ SCH ×3 (06:28→17:18)
[2018-07-17] MEDS: INSULIN (LEVEMIR) 100 UNITS/ML UNITS SQ SCH (06:29)
[2018-07-17] MEDS: LEVOTHYROXINE NA 50 MCG TABLET (FP) PO SCH (06:31)
[2018-07-17] MEDS: ALBUTEROL SO4 2.5/IPRATROPIUM 0.5 INH SOL 3 ML VIAL.NEB. NEB SCH ×4 (07:25→20:35)
--- NOTE | 2018-07-17 10:14 | PN ---
Progress Note, Physician History of Present Illness: Sedated and intubated, enteral feeds, remains off pressors. - Current Medication List Current Medications: Active Medications Al Hydroxide/Mg Hydroxide (Mylanta Oral Suspension -) 30 ml PO Q6H PRN PRN Reason: INDIGESTION Albuterol/Ipratropium (Duoneb -) 1 amp NEB RQID [facility] Last Admin: 07/17/18 07:25 Dose: 1 amp Chlorhexidine Gluconate (Hibiclens For Decolonization -) 1 applic TP HS [facility] Last Admin: 07/16/18 21:30 Dose: 1 applic Chlorhexidine Gluconate (Peridex -) 15 ml MM BID [facility] Last Admin: 07/16/18 21:31 Dose: 15 ml Ferrous Sulfate (Feosol -) 325 mg PO DAILY [facility] Last Admin: 07/16/18 10:29 Dose: 325 mg Hydrocortisone Sodium Succinate (Solu-Cortef -) 25 mg IVPB BID [facility] Last Admin: 07/16/18 21:32 Dose: 25 mg Piperacillin Sod/Tazobactam (Sod 3.375 gm/ Dextrose) 50 mls @ 100 mls/hr IVPB Q8H-IV [facility]; Protocol Last Admin: 07/17/18 02:34 Dose: 100 mls/hr Norepinephrine Bitartrate 8, (000 mcg/ Dextrose) 500 mls @ 18.75 mls/hr IV TITR [facility]; Protocol Last Admin: 07/17/18 06:27 Dose: Not Given Propofol (Diprivan -) 1,000,000 mcg in 100 mls @ 2.303 mls/hr IVPB TITR [facility]; Protocol Last Titration: 07/17/18 06:39 Dose: 7 mcg/kg/min, 3.224 mls/hr Vancomycin HCl 1,250 mg/ (Dextrose) 250 mls @ 166.667 mls/hr IVPB Q24H [facility]; Protocol Last Admin: 07/16/18 15:15 Dose: 166.667 mls/hr Insulin Aspart (Novolog Vial Sliding Scale -) 1 vial SQ Q6HPO [facility]; Protocol Last Admin: 07/17/18 06:28 Dose: 6 units Insulin Detemir (Levemir Vial) 15 units SQ AM [facility] Last Admin: 07/17/18 06:29 Dose: 15 units Levothyroxine Sodium (Synthroid -) 50 mcg PO DAILY@0700 [facility] Last Admin: 07/17/18 06:31 Dose: 50 mcg Pantoprazole Sodium (Protonix Iv) 40 mg IVPUSH DAILY [facility] Last Admin: 07/16/18 12:05 Dose: 40 mg Polyethylene Glycol (Miralax (For Daily Use) -) 17 gm PO BID [facility] Last Admin: 07/16/18 21:31 Dose: 17 grams Rivaroxaban (Xarelto -) 20 mg PO DAILY@1800 [facility] Last Admin: 07/16/18 17:21 Dose: 20 mg Senna (Senna Oral Solution -) 8.8 mg PO HS [facility] Last Admin: 07/16/18 21:32 Dose: 8.8 mg - Objective Vital Signs: Vital Signs Temperature 97.2 F L 07/17/18 08:00 Pulse Rate 59 L 07/17/18 08:34 Respiratory Rate 14 07/17/18 08:00 Blood Pressure 120/54 L 07/17/18 08:00 O2 Sat by Pulse Oximetry (%) 100 07/17/18 09:00 Constitutional: Yes: No Distress, Calm Neck: Yes: Supple Cardiovascular: Yes: Regular Rate and Rhythm Respiratory: Yes: Intubated, Mechanically Ventilated, Rhonchi Gastrointestinal: Yes: Normal Bowel Sounds, Soft Edema: No Labs: CBC, BMP 07/17/18 05:30 07/17/18 05:30 INR, PTT INR 1.58 (0.83-1.09) H 07/13/18 08:10 Fibrinogen 423.0 mg/dL (238-498) 07/12/18 05:30 Problem List - Problems (1) Abnormal liver function tests Code(s): R94.5 - ABNORMAL RESULTS OF LIVER FUNCTION STUDIES (2) CAD (coronary artery disease) Code(s): I25.10 - ATHSCL HEART DISEASE OF [place] CORONARY ARTERY W/O ANG PCTRS Qualifiers: Coronary Disease-Associated Artery/Lesion type: [place] artery [place] vs. transplanted heart: [place] heart Associated angina: without angina Qualified Code(s): I25.10 - Atherosclerotic heart disease of [place] coronary artery without angina pectoris (3) CHF (congestive heart failure) Code(s): I50.9 - HEART FAILURE, UNSPECIFIED Qualifiers: Heart failure type: combined systolic and diastolic Heart failure chronicity: chronic Qualified Code(s): I50.42 - Chronic combined systolic ( congestive) and diastolic (congestive) heart failure (4) Hypercholesterolemia Code(s): E78.00 - PURE HYPERCHOLESTEROLEMIA, UNSPECIFIED (5) Hypothyroid Code(s): E03.9 - HYPOTHYROIDISM, UNSPECIFIED Qualifiers: Hypothyroidism type: unspecified Qualified Code(s): E03.9 - Hypothyroidism , unspecified (6) Presence of permanent cardiac pacemaker Code(s): Z95.0 - PRESENCE OF CARDIAC PACEMAKER (7) Septic shock Code(s): A41.9 - SEPSIS, UNSPECIFIED ORGANISM; R65.21 - SEVERE SEPSIS WITH SEPTIC SHOCK (8) Sick sinus syndrome Code(s): I49.5 - SICK SINUS SYNDROME (9) History of percutaneous coronary intervention Code(s): Z98.890 - OTHER SPECIFIED POSTPROCEDURAL STATES (10) IDDM (insulin dependent diabetes mellitus) Code(s): E11.9 - TYPE 2 DIABETES MELLITUS WITHOUT COMPLICATIONS; Z79.4 - [employer]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) USE OF INSULIN (11) Sleep apnea Code(s): G47.30 - SLEEP APNEA, UNSPECIFIED Qualifiers: Sleep apnea type: unspecified type Qualified Code(s): G47.30 - Sleep apnea , unspecified (12) Atrial fibrillation with controlled ventricular rate Code(s): I48.91 - UNSPECIFIED ATRIAL FIBRILLATION (13) Chronic anticoagulation Code(s): Z79.01 - 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 Respiratory failure on mechanical ventilation 2. Post septic shock 3. Acute on chronic LV failure class II NYHA classification LV failure referable to systolic/diastolic heart failure 4. CAD s/p PCI/stent, angina pectoris 5. Persistent AF [id number] score of 6 on NOAC 6. AV block s/p PPM 7. HTN 8. Hypercholesterolemia 9. DM 10. COPD 11. CKD 12. Anemia 13. Hypothyroidism 14. BPH s/p TURP 15. Severe OSAS (RDI 108 per hour / desaturation to 72%) 16. Shock liver resolving PLAN: 1. Vent support - wean as per Critical Care team as tolerated 2. Antibiotic coverage, IV steroids with GI protection, BD 3. Xarelto 20 qd, resume carvedilol 6.25 bid, losartan 50 qd as hemodynamics tolerate. Lipitor held pending resolution of LFT abnl 4. Diuresis as needed to keep even with monitor renal function and electrolytes
[2018-07-17] MEDS: POLYETHYLENE GLYCOL 3350 119 GM BTL PO SCH ×3 (10:57→22:52)
[2018-07-17] MEDS: PANTOPRAZOLE SODIUM 40 MG VIAL IVPUSH SCH (10:57)
[2018-07-17] MEDS: FERROUS SO4 325 MG TABLET (FP) PO SCH (10:58)
[2018-07-17] MEDS: CHLORHEXIDINE GLUCONATE 0.12% 15ML CUP MM SCH ×3 (10:58→22:52)
[2018-07-17] MEDS: HYDROCORTISONE SOD SUCCINATE 100 MG/2 ML VIAL IVPB SCH (10:58)
[2018-07-17] MEDS: CARVEDILOL 3.125 MG TABLET (FP) NGT SCH ×3 (12:32→22:51)
--- NOTE | 2018-07-17 12:52 | PN ---
Teaching Attending Note Name of Resident: Capri Erickson ATTENDING PHYSICIAN STATEMENT I saw and evaluated the patient. I reviewed the resident's note and discussed the case with the resident. I agree with the resident's findings and plan as documented. SUBJECTIVE: Pt seen and examined in the ICU. Remains intubated, arousable off sedation. Off pressors. Tolerating CPAP/PS trials. OBJECTIVE: Vital Signs Period Temp Pulse Resp BP Sys/Kuo Pulse Ox Last 24 Hr 96.1 F-98.5 F 59-62 08-22 109-128/54-82 97-100 Intake & Output 07/14/18 07/15/18 07/16/18 07/17/18 23:59 23:59 23:59 23:59 Intake Total 2076 949 1542 576 Output Total 1350 1150 950 900 Balance 726 -201 592 -324 Weight 81.5 kg 76.43 kg 75.296 kg 74.984 kg Gen: intubated, arousable Herat: RRR Lung: decreased breath sounds at the bases Abd: soft, nontender Ext: UE edema CBC, BMP 07/17/18 05:30 07/17/18 05:30 Active Medications Al Hydroxide/Mg Hydroxide (Mylanta Oral Suspension -) 30 ml PO Q6H PRN PRN Reason: INDIGESTION Albuterol/Ipratropium (Duoneb -) 1 amp NEB RQID [facility] Last Admin: 07/17/18 11:09 Dose: 1 amp Carvedilol (Coreg -) 3.125 mg NGT BID [facility] Last Admin: 07/17/18 12:32 Dose: 3.125 mg Chlorhexidine Gluconate (Hibiclens For Decolonization -) 1 applic TP HS [facility] Last Admin: 07/16/18 21:30 Dose: 1 applic Chlorhexidine Gluconate (Peridex -) 15 ml MM BID [facility] Last Admin: 07/17/18 10:58 Dose: 15 ml Ferrous Sulfate (Feosol -) 325 mg PO DAILY [facility] Last Admin: 07/17/18 10:58 Dose: 325 mg Hydrocortisone Sodium Succinate (Solu-Cortef -) 25 mg IVPB BID [facility] Last Admin: 07/17/18 10:58 Dose: 25 mg Piperacillin Sod/Tazobactam (Sod 3.375 gm/ Dextrose) 50 mls @ 100 mls/hr IVPB Q8H-IV [facility]; Protocol Last Admin: 07/17/18 10:57 Dose: 100 mls/hr Norepinephrine Bitartrate 8, (000 mcg/ Dextrose) 500 mls @ 18.75 mls/hr IV TITR [facility]; Protocol Last Admin: 07/17/18 06:27 Dose: Not Given Propofol (Diprivan -) 1,000,000 mcg in 100 mls @ 2.303 mls/hr IVPB TITR [facility]; Protocol Last Titration: 07/17/18 06:39 Dose: 7 mcg/kg/min, 3.224 mls/hr Vancomycin HCl 1,250 mg/ (Dextrose) 250 mls @ 166.667 mls/hr IVPB Q24H [facility]; Protocol Last Admin: 07/16/18 15:15 Dose: 166.667 mls/hr Insulin Aspart (Novolog Vial Sliding Scale -) 1 vial SQ Q6HPO [facility]; Protocol Last Admin: 07/17/18 12:31 Dose: 4 units Insulin Detemir (Levemir Vial) 15 units SQ AM [facility] Last Admin: 07/17/18 06:29 Dose: 15 units Levothyroxine Sodium (Synthroid -) 50 mcg PO DAILY@0700 [facility] Last Admin: 07/17/18 06:31 Dose: 50 mcg Pantoprazole Sodium (Protonix Iv) 40 mg IVPUSH DAILY [facility] Last Admin: 07/17/18 10:57 Dose: 40 mg Polyethylene Glycol (Miralax (For Daily Use) -) 17 gm PO BID [facility] Last Admin: 07/17/18 10:57 Dose: 17 grams Rivaroxaban (Xarelto -) 20 mg PO DAILY@1800 [facility] Last Admin: 07/16/18 17:21 Dose: 20 mg Senna (Senna Oral Solution -) 8.8 mg PO HS [facility] Last Admin: 07/16/18 21:32 Dose: 8.8 mg ASSESSMENT AND PLAN: Acute Hypoxic and Hypercapneic Respiratory Failure Pneumonia Septic Shock resolving Lactic Acidosis resolved Acute Kidney Injury improving Elevated LFTs likely Ischemic Injury LV Systolic Dysfunction Atrial Fibrillation CAD HTN DM Hyperlipidemia - wean to extubate - continue antibiotics - off pressors, maintain MAP >65 - monitor urine output, creatinine - taper off steroids - monitor lytes - continue anticoagulation to keep INR 2-3 - DVT/GI prophylaxis - continue ICU monitoring critical care time spent in reviewing chart, evaluating patient and formulating plan 35 min
--- NOTE | 2018-07-17 13:48 | CONSULT ---
Admitting History and Physical - Primary Care Physician PCP: Jerrod Araujo - Admission History of Present Illness: 83 y/o M with PMHx of CHF, COPD, HTN, HLD, CAD (s/p stenting x7 and pacemaker), Atrial Fibrillation, DM, chronic venous insufficiency, BPH was BIBEMS from [facility] on July 10 for AMS and was admitted to the ICU for severe sepsis due to Cellulitus. Intubated 07/13, and extubated today, 07/17. Seen 06/15/18 Pt rambled, with anomia, occasional word errors, although he seems fairly oriented. Unclear if he is confabulating, reporting a h/o severe esophageal ulcers since childhood, with problems with friction of food and severe pain resulting. Pt was on a reg diet at [facility]. Noted to be coughing with tuna sandwhich today.Downgraded to chopped diet by RD. No GI imaging noted in EMR. Rambled, disorganized speech, but remembers name of staff and recent events. Reports "h/o severe esophageal ulcers" "friction of food causes choking and severe pain". r/o esophageal dysphagia [facility] [place] edentulous but brisk swallow. Placed on chopped food and thin liquid. Chart reviewed and . Too acute, just extubated on the . Not examined until today. Arousable. Flat affect. History Source: Medical Record Limitations to Obtaining History: Clinical Condition - Past Medical History Cardiovascular: Yes: AFIB, CAD, CHF, HTN, Hyperlipdemia Pulmonary: Yes: COPD, Sleep Apnea Renal/: Yes: BPH Heme/Onc: Yes: Anemia (macrocytic) Endocrine: Yes: Diabetes Mellitus - Past Surgical History Past Surgical History: Yes: Permanent Pacemaker, Stent, TURP - Smoking History Smoking history: Never smoked Have you smoked in the past 12 months: No Aproximately how many cigarettes per day: 0 - Alcohol/Substance Use Hx Alcohol Use: No - Social History ADL: Support Services History of Recent Travel: No History - Admission Reason For Visit: CONGESTIVE HEART FAILURE, HYPOTHYROIDISM, HIGH - Diagnostics X-ray: Report Reviewed Modified Barium Swallow: Report Reviewed ([facility] [place] edentulous but brisk swallow. Placed on chopped food and thin liquid.) - General Mental Status: Awake and Alert, Flat Affect Attention: Mild Impairment, Moderate Impairment Ability to Follow Directions: Fair (opened mouth, protruded tongue, to command) - Hearing Hearing: Functional Speech Evaluation - Communication Primary Language: GERMAN Communication: Yes: Simple Responses Oral Expression Ability: Yes: Moderate Impairment - Speech Production Able to Make Needs Known: Yes: Moderately Impaired Intelligibility: Yes: Moderately Impaired - Speech Characteristics Voice Loudness: Mildly Soft/Quiet Voice Pitch: Yes: Normal Voice Phonatory-based Quality: Yes: Harsh Speech Pattern: Impaired Speech Clarity: < 50% Nasal Resonance: Normal Articulation: Yes: Imprecise Rate of Speech: Too Fast - Language/Auditory Comprehension Observation: Able to respond to yes/no queries: Yes (simple. ), Benefits from Repetiton: Yes - Language/Verbal Expression Aphasia: Yes: Anomia (in past) Functional Communication Status: Yes: Moderately Impaired - Swallow Evaluation/Bedside Assessment Current Nutritional Intake: NPO Oral Secretions: Yes: WFL Facial Symmetry at Rest: Symmetrical Facial Symmetry on Retraction: Symmetrical Lingual Movement: Symmetric Laryngeal Movement: Able to Palpate, Reduced Excursion, Labored,delay initiation , Reduced Velocity Rate of Intake: WFL Bolus Size: WFL Labial Seal: WFL Oral Prep Time: WFL A-P Transit: WFL Timing of Swallow: Delayed Coughing/Throat Clear: No Change in Voice: No Recommendations - Speech Evaluation, Impression/Plan Impression: Unintelligible speech, low volume, rapid, but asked if he wanted another tsp of applesauce, he replied clearly "Of course!". Swallow is delayed and somewhat labored, with aspiration risk, especially on liquids. Voice is harsh. Baseline pt has a brisk, functional swallow, based on recent MBS - Dysphagia Impressions/Plan Dysphagia Impressions: Mild Impairment, Moderate Impairment, Ongoing Evaluation *Silent aspiration: cannot be R/O at bedside Recommendations: Other (trial of Magic cup,feed slowly, wait for 2 swallows before next 1/2 tsp given. Pt may be able to tolerate Dys puree/honey tomorrow , as pt improves. Speech path to follow for diet upgrade.) - Recommendations Medication Administration: Crushed with applesauce Liquids: IV Hydration (if not contraindicated) Supplement: Magic Cup
--- NOTE | 2018-07-17 14:02 | PN ---
Physical Exam: SUBJECTIVE: Patient seen and examined at bedside. Sedation turned off this morning. Patient lethargic, but arousable and following commands. Patient subsequently extubated. Patient currently on 50% venti mask, saturating well at 100%. OBJECTIVE: Vital Signs Period Temp Pulse Resp BP Sys/Kuo Pulse Ox Last 24 Hr 96.1 F-98.5 F 59-62 12-18 109-128/54-82 97-100 GENERAL: The patient is lethargic, arousable by voice, on 50% venti mask HEAD: Normal with no signs of trauma. NECK: Trachea midline, full range of motion, supple. LUNGS: +scattered rhonchi bilaterally. HEART: Regular rate and rhythm, S1, S2 without murmur, rub or gallop. ABDOMEN: Soft, nontender, nondistended, normoactive bowel sounds. UPPER EXTREMITIES: 2+ pulses, warm, well-perfused, no edema. LOWER EXTREMITIES: +circumferential erythema and warmth bilaterally from ankle to mid-baker area with scattered wounds SKIN: Warm, dry, normal turgor Laboratory Results - last 24 hr 07/16/18 07/16/18 07/16/18 12:03 17:46 22:16 WBC RBC Hgb Hct MCV MCH MCHC RDW Plt Count MPV Sodium Potassium Chloride Carbon Dioxide Anion Gap BUN Creatinine Creat Clearance w eGFR POC Glucometer [phone] [phone] Random Glucose Calcium Phosphorus Magnesium 07/17/18 07/17/18 07/17/18 04:55 05:30 05:30 WBC 13.6 H RBC 2.60 L Hgb 8.7 L Hct 26.4 L MCV 101.5 H MCH 33.6 MCHC 33.1 RDW 17.8 H Plt Count 229 MPV 9.0 Sodium 146 H Potassium 4.9 Chloride 114 H Carbon Dioxide 28 Anion Gap 4 L BUN 31 H Creatinine 0.9 Creat Clearance w eGFR > 60 POC Glucometer [phone] Random Glucose 219 H Calcium 7.9 L Phosphorus 2.8 Magnesium 2.1 Active Medications Generic Name Dose Route Start Last Admin Trade Name Freq PRN Reason Stop Dose Admin Al Hydroxide/Mg Hydroxide 30 ml 07/10/18 19:52 Mylanta Oral Suspension - PO Q6H PRN INDIGESTION Albuterol/Ipratropium 1 amp 07/10/18 20:15 07/17/18 11:09 Duoneb - NEB 1 amp RQID AYDIN Administration Carvedilol 3.125 mg 07/17/18 10:30 07/17/18 12:32 Coreg - NGT 3.125 mg BID AYDIN Administration Chlorhexidine Gluconate 1 applic 07/10/18 22:00 07/16/18 21:30 Hibiclens For Decolonization - TP 1 applic HS AYDIN Administration Chlorhexidine Gluconate 15 ml 07/13/18 22:00 07/17/18 10:58 Peridex - MM 15 ml BID AYDIN Administration Ferrous Sulfate 325 mg 07/11/18 10:00 07/17/18 10:58 Feosol - PO 325 mg DAILY AYDIN Administration Hydrocortisone Sodium Succinate 25 mg 07/16/18 22:00 07/17/18 10:58 Solu-Cortef - IVPB 25 mg BID AYDIN Administration Piperacillin Sod/Tazobactam 50 mls @ 100 mls/hr 07/11/18 02:00 07/17/18 10:57 Sod 3.375 gm/ Dextrose IVPB 100 mls/hr Q8H-IV AYDIN Administration Protocol Norepinephrine Bitartrate 8, 500 mls @ 18.75 mls/hr 07/11/18 05:45 07/17/18 06:27 000 mcg/ Dextrose IV Not Given TITR AYDIN Protocol 5 MCG/MIN Vancomycin HCl 1,250 mg/ 250 mls @ 166.667 mls/hr 07/12/18 15:00 07/16/18 15: 15 Dextrose IVPB 166.667 mls/hr Q24H AYDIN Administration Protocol Insulin Aspart 1 vial 07/16/18 12:00 07/17/18 12:31 Novolog Vial Sliding Scale - SQ 4 units Q6HPO AYDIN Administration Protocol Insulin Detemir 15 units 07/17/18 07:00 07/17/18 06:29 Levemir Vial SQ 15 units AM AYDIN Administration Levothyroxine Sodium 50 mcg 07/17/18 07:00 07/17/18 06:31 Synthroid - PO 50 mcg DAILY@0700 AYDIN Administration Pantoprazole Sodium 40 mg 07/15/18 10:00 07/17/18 10:57 Protonix Iv IVPUSH 40 mg DAILY AYDIN Administration Polyethylene Glycol 17 gm 07/10/18 22:00 07/17/18 10:57 Miralax (For Daily Use) - PO 17 grams BID AYDIN Administration Rivaroxaban 20 mg 07/15/18 18:00 07/16/18 17:21 Xarelto - PO 20 mg DAILY@1800 AYDIN Administration Senna 8.8 mg 07/15/18 22:00 07/16/18 21:32 Senna Oral Solution - PO 8.8 mg HS AYDIN Administration ASSESSMENT/PLAN: Patient is an 83 year old male with significant past medical history of sys/ diastolic CHF; COPD; HTN; HLD; CAD (s/p stenting x7 and pacemaker); Atrial Fibrillation; DM; chronic venous insufficiency; BPH s/p TURP; CKD; anemia for B/ L leg pain and abnormal gait was sent from [facility] for evaluation of B/L lower extremity pain. #Infectious Disease 1)Septic shock likely secondary to cellulitis of B/L Lower extremity, improving -Off levophed, maintaining MAP >65 -IV Solu-cortef 25mg q12h --> daily, then will discontinue tomorrow -Fludrocortisone 0.05mg OGT discontinued -ID (Dr. Thomas) consulted. Recommendations appreciated. -Continue Vancomycin 1250mg daily Day 8 and Zosyn 3.375 q8h Day 9 -For vanc trough levels tomorrow prior to dose. -Neuro status on venti mask: lethargic but arousable with voice, follows commands -Wound cultures - Presumptive Pseudomonas, Lactose fermenting GNB, Presumptive MRSA, Group D Strep or Enterococcus -Contact isolation precautions -Dr. Estrada consulted. Recommendations appreciated. -Air mattress recommended. -Ensure off-loading to all bony areas with Allevyn/Optifoam -Clean open wounds with normal saline and apply Silvadene -Continue antibiotics. -Podiatry(Dr. Greene) consulted for avulsed L great toe nail. -Heel pads b/l. Will debride nail left hallux. 2)Lactic acidosis: likely 2/2 sepsis, resolved -Lactic acid 2.8 --> 1.5 #Pulmonology 1)Acute Hypoxic and Hypercapneic respiratory failure: Likely 2/2 Pneumonia and Sepsis -On 50% venti mask, saturating at 100% -On IV Vanc/Zosyn. -OG tube. -Bipap at bedtime and PRN 2)COPD -Duoneb QID 3)Obstructive Sleep Apnea -Once extubated, resume bipap 16/10 at night time and PRN #Endocrinology 1)Hypothyroidism -TSH elevated 14.8 --> 13.2 -free T4 0.8 -Hypotension, hypothermia, hypoglycemia likely 2/2 sepsis. -Endocrinology (Dr. Duron) consulted. Recommendations appreciated. -Synthroid 50mcg daily at 7am -IV antibiotics 2)Diabetes Mellitus -A1c - 6.8 -Levemir 15 units at AM -Insulin sliding scale implemented -BG ACHS #Cardiovascular 1)Systolic/Diastolic CHF: not on exacerbation -BNP 1180. -Echocardiogram done. -Hold Lasix for now -Gentle hydration PRN 2)Prolonged QTc: 614 -Avoid medications causing prolonged QTc. -Repeat EKG: QTc 535 3)CAD (s/p stenting x7 and pacemaker) -Continue [id number] PO HS -On Xarelto 20mg daily 4)Hypertension -hold home anti-hypertensive medications -Will monitor BP. Maintain MAP >65 5)Hyperlipidemia -Lipitor 40mg PO HS 6)Atrial Fibrillation: rate controlled -On Xarelto 20mg daily #Gastroenterology 1)Transaminitis likely 2/2 sepsis, improved -LFTs trending down -Liver ultrasound done- Right pleural effusion and trace ascites. Thick walled gallbladder with biliary sludge. -Hepatitis panel. -will continue to monitor 2)Coffee ground-containing gastric aspirate likely 2/2 acute gastritis, resolved -GI (Dr. Rodriguez) consulted. Recommendations appreciated. -Likely 2/2 septic shock along with component of stress gastritis -Protonix 40mg IV daily. -Avoid NSAIDs #Nephrology 1)CKD -elevated BUN likely 2/2 to dehydration -IVF PRN 2)Hyperkalemia, resolved -will continue to monitor #Hematology 1)Macrocytic anemia: stable -H/H 8.7/26.4 -monitor CBC #FEN -IVF boluses PRN -Routine bmp monitoring -OG tube feeding. #Prophylaxis 1)DVT - on Xarelto 20mg daily 2)GI - Protonix 40mg IV daily #Disposition -DNR -Palliative care on board. -ICU for closer monitoring Visit type - Emergency Visit Emergency Visit: Yes ED Registration Date: 07/10/18 Care time: The patient presented to the Emergency Department on the above date and was hospitalized for further evaluation of their emergent condition. - New Patient This patient is new to me today: Yes Date on this admission: 07/17/18 - Critical Care Critical Care patient: Yes Total Critical Care Time (in minutes): 40 Critical Care Statement: The care of this patient involved high complexity decision making to prevent further life threatening deterioration of the patient 's condition and/or to evaluate & treat vital organ system(s) failure or risk of failure.
[2018-07-17] MEDS: VANCOMYCIN 1,250 MG in DEXTROSE 5%-WATER - 250 ML IVPB SCH (15:23)
--- NOTE | 2018-07-17 15:53 | PN ---
Progress Note, Physician History of Present Illness: patient extubated stable currently off and on mental status on tube feeds - Current Medication List Current Medications: Active Medications Al Hydroxide/Mg Hydroxide (Mylanta Oral Suspension -) 30 ml PO Q6H PRN PRN Reason: INDIGESTION Albuterol/Ipratropium (Duoneb -) 1 amp NEB RQID [facility] Last Admin: 07/17/18 11:09 Dose: 1 amp Carvedilol (Coreg -) 3.125 mg NGT BID [facility] Last Admin: 07/17/18 12:32 Dose: 3.125 mg Chlorhexidine Gluconate (Hibiclens For Decolonization -) 1 applic TP HS [facility] Last Admin: 07/16/18 21:30 Dose: 1 applic Chlorhexidine Gluconate (Peridex -) 15 ml MM BID [facility] Last Admin: 07/17/18 10:58 Dose: 15 ml Ferrous Sulfate (Feosol -) 325 mg PO DAILY [facility] Last Admin: 07/17/18 10:58 Dose: 325 mg Hydrocortisone Sodium Succinate (Solu-Cortef -) 25 mg IVPB BID [facility] Last Admin: 07/17/18 10:58 Dose: 25 mg Piperacillin Sod/Tazobactam (Sod 3.375 gm/ Dextrose) 50 mls @ 100 mls/hr IVPB Q8H-IV AYDIN; Protocol Last Admin: 07/17/18 10:57 Dose: 100 mls/hr Norepinephrine Bitartrate 8, (000 mcg/ Dextrose) 500 mls @ 18.75 mls/hr IV TITR AYDIN; Protocol Last Admin: 07/17/18 06:27 Dose: Not Given Vancomycin HCl 1,250 mg/ (Dextrose) 250 mls @ 166.667 mls/hr IVPB Q24H [facility]; Protocol Last Admin: 07/17/18 15:23 Dose: 166.667 mls/hr Insulin Aspart (Novolog Vial Sliding Scale -) 1 vial SQ Q6HPO [facility]; Protocol Last Admin: 07/17/18 12:31 Dose: 4 units Insulin Detemir (Levemir Vial) 15 units SQ AM [facility] Last Admin: 07/17/18 06:29 Dose: 15 units Levothyroxine Sodium (Synthroid -) 50 mcg PO DAILY@0700 [facility] Last Admin: 07/17/18 06:31 Dose: 50 mcg Pantoprazole Sodium (Protonix Iv) 40 mg IVPUSH DAILY [facility] Last Admin: 07/17/18 10:57 Dose: 40 mg Polyethylene Glycol (Miralax (For Daily Use) -) 17 gm PO BID [facility] Last Admin: 07/17/18 10:57 Dose: 17 grams Rivaroxaban (Xarelto -) 20 mg PO DAILY@1800 [facility] Last Admin: 07/16/18 17:21 Dose: 20 mg Senna (Senna Oral Solution -) 8.8 mg PO HS [facility] Last Admin: 07/16/18 21:32 Dose: 8.8 mg - Objective Vital Signs: Vital Signs Temperature 97.8 F 07/17/18 12:00 Pulse Rate 60 07/17/18 14:00 Respiratory Rate 18 07/17/18 14:00 Blood Pressure 115/50 L 07/17/18 14:00 O2 Sat by Pulse Oximetry (%) 97 07/17/18 11:15 Constitutional: Yes: No Distress, Calm Cardiovascular: Yes: Regular Rate and Rhythm Respiratory: Yes: Poor Air Entry (bases), Other (on face mask) Gastrointestinal: Yes: Normal Bowel Sounds, Soft, Other (ng tube in place) Musculoskeletal: Yes: WNL Extremities: Yes: Other Neurological: Yes: Other Psychiatric: Yes: Other Labs: CBC, BMP 07/17/18 05:30 07/17/18 05:30 INR, PTT INR 1.58 (0.83-1.09) H 07/13/18 08:10 Fibrinogen 423.0 mg/dL (238-498) 07/12/18 05:30 Assessment/Plan septic shock Systolic / Diastolic CHF COPD HTN HLD CAD PPM Atrial Fibrillation DM Chronic venous insufficiency BPH s/p TURP CKD Anemia plan continue abx patient stable wound care rest as per icu nutrition check vanco level cc 40 min
--- NOTE | 2018-07-17 16:39 | PN ---
Physical Exam: SUBJECTIVE: Patient seen and examined this morning at bedside. No longer intubated or sedated and on 50% VentiMask. No acute overnight events as per nursing. OBJECTIVE: Vital Signs Period Temp Pulse Resp BP Sys/Kuo Pulse Ox Last 24 Hr 96.1 F-98.5 F 59-62 12-18 109-128/50-82 97-100 GENERAL: Lethargic but arousable HEAD: NCAT EYES: Dry membranes NECK: B/L JVD, Right Sided IJ Placed LUNGS: Scattered Rhonchi, currently on ventimask HEART: Regular rate and rhythm, normal S1 and S2, LLSB Murmur ABDOMEN: Soft, nontender, not distended, normoactive bowel sounds BACK: Stage 2 ulcer superior to the gluteal fold without active drainage or surrounding erythema EXTREMITIES: 2+ pulses, No edema. Multiple, Lower extremity wounds without active drainage, Erythema and warmth continue to improve. New eschar over RLE healing wound Laboratory Results - last 24 hr 07/17/18 07/17/18 05:30 05:30 WBC 13.6 H RBC 2.60 L Hgb 8.7 L Hct 26.4 L MCV 101.5 H MCH 33.6 MCHC 33.1 RDW 17.8 H Plt Count 229 MPV 9.0 Sodium 146 H Potassium 4.9 Chloride 114 H Carbon Dioxide 28 Anion Gap 4 L BUN 31 H Creatinine 0.9 Creat Clearance w eGFR > 60 POC Glucometer Random Glucose 219 H Calcium 7.9 L Phosphorus 2.8 Magnesium 2.1 Microbiology 07/11/18 03:30 Leg - Right Lower Gram Stain - Final 07/11/18 03:30 Leg - Right Lower Wound Culture - Preliminary Pseudomonas Aeruginosa Klebsiella Oxytoca Mr S Aureus Enterococcus Faecalis 07/10/18 11:15 Blood - Peripheral Venous Blood Culture - Final NO GROWTH AFTER 5 DAYS INCUBATION 07/10/18 11:00 Blood - Peripheral Venous Blood Culture - Final NO GROWTH AFTER 5 DAYS INCUBATION 07/10/18 12:20 Urine - Urine Clean Catch Urine Culture - Final Staphylococcus Warneri Active Medications Al Hydroxide/Mg Hydroxide (Mylanta Oral Suspension -) 30 ml PO Q6H PRN PRN Reason: INDIGESTION Albuterol/Ipratropium (Duoneb -) 1 amp NEB RQID AYDIN Last Admin: 07/17/18 16:18 Dose: 1 amp Carvedilol (Coreg -) 3.125 mg NGT BID [facility] Last Admin: 07/17/18 12:32 Dose: 3.125 mg Chlorhexidine Gluconate (Hibiclens For Decolonization -) 1 applic TP HS [facility] Last Admin: 07/16/18 21:30 Dose: 1 applic Chlorhexidine Gluconate (Peridex -) 15 ml MM BID [facility] Last Admin: 07/17/18 10:58 Dose: 15 ml Ferrous Sulfate (Feosol -) 325 mg PO DAILY [facility] Last Admin: 07/17/18 10:58 Dose: 325 mg Hydrocortisone Sodium Succinate (Solu-Cortef -) 25 mg IVPB BID [facility] Last Admin: 07/17/18 10:58 Dose: 25 mg Piperacillin Sod/Tazobactam (Sod 3.375 gm/ Dextrose) 50 mls @ 100 mls/hr IVPB Q8H-IV AYDIN; Protocol Last Admin: 07/17/18 10:57 Dose: 100 mls/hr Norepinephrine Bitartrate 8, (000 mcg/ Dextrose) 500 mls @ 18.75 mls/hr IV TITR AYDIN; Protocol Last Admin: 07/17/18 06:27 Dose: Not Given Vancomycin HCl 1,250 mg/ (Dextrose) 250 mls @ 166.667 mls/hr IVPB Q24H [facility]; Protocol Last Admin: 07/17/18 15:23 Dose: 166.667 mls/hr Insulin Aspart (Novolog Vial Sliding Scale -) 1 vial SQ Q6HPO [facility]; Protocol Last Admin: 07/17/18 12:31 Dose: 4 units Insulin Detemir (Levemir Vial) 15 units SQ AM [facility] Last Admin: 07/17/18 06:29 Dose: 15 units Levothyroxine Sodium (Synthroid -) 50 mcg PO DAILY@0700 [facility] Last Admin: 07/17/18 06:31 Dose: 50 mcg Pantoprazole Sodium (Protonix Iv) 40 mg IVPUSH DAILY [facility] Last Admin: 07/17/18 10:57 Dose: 40 mg Polyethylene Glycol (Miralax (For Daily Use) -) 17 gm PO BID [facility] Last Admin: 07/17/18 10:57 Dose: 17 grams Rivaroxaban (Xarelto -) 20 mg PO DAILY@1800 [facility] Last Admin: 07/16/18 17:21 Dose: 20 mg Senna (Senna Oral Solution -) 8.8 mg PO HS [facility] Last Admin: 07/16/18 21:32 Dose: 8.8 mg IMAGING: -CXR (07/10): The prior study of 06/09/2018, again is a scoliosis with convexity to the right, weak inspiration, multi lead pacemaker, distended bowel in the upper abdomen, previous right shoulder surgery and there are increased left hemithorax markings compatible with some atelectasis and/or infiltrate. Follow- up recommended. -CXR (07/11): Since the prior study of 07/10/2018, there appears to be major consolidation in the left hemithorax with some sparing at the left base. There is a prominent mediastinum with pacemaker and distended bowel in the abdomen. The right lung is clear. There is a scoliosis with convexity to the right. There are degenerative spine and shoulder changes. There are left shoulder calcifications. A follow-up study is suggested with deep inspiration to clarify the left hemithorax changes. The sparing of the left base is unusual and one must make sure this is not a subtle pneumothorax. Again follow-up imaging is suggested -CXR (07/11): Since the prior study of 07/11/2018 at 0704 hours, the left hemithorax is slightly better aerated with still some infiltrate/atelectasis and no sign of a gross pneumothorax. The remainder the study is unchanged -CXR (07/11): Since 1003 hours, new right jugular line has been inserted and the tip is in the right atrium. The remainder the study is unchanged. There is no sign of a pneumothorax. -CXR (07/12): A single AP view of the chest reveals motion artifact, weak inspiration, chin artifact, right jugular line with tip in junction of SVC and right atrium, left-sided double lead pacemaker, sclerotic knob, previous right humeral fracture stabilization with hardware and some congestive changes with atelectasis or infiltrate on the left. There is bowel in the right upper quadrant. Since the prior exam of 07/11/2018, there is no significant change. -CXR (07/12): An AP chest reveals an endotracheal tube, right jugular line and pacemaker. There is a large heart, sclerotic unfolded aorta and congestive changes with bilateral effusions with left base infiltrate or atelectasis. The pulmonary and pleural changes have increased and the endotracheal tube is new since 07/12/2018. An OG tube is not easily delineated in this study. -CXR (07/13): No significant change -CXR (07/14): Since 07/13/2018, are progressive bilateral pulmonary and pleural changes. The endotracheal tube, right jugular line, pacemaker and previous right humeral stabilization with hardware is again noted. -CXR (07/15): Improvement. Residual fluid and atelectasis left base. -CXR (07/17): Slight improvement since 07/15/2018. -Liver US: Right pleural effusion and trace ascites. Thick walled gallbladder with biliary sludge. -DUPLEX US: No evidence of deep venous thrombosis. -CT Head without contrast: No evidence of acute intracranial pathology. -EKG: Ventricular-paced rhythm, VR 60, QTc 614 -ECHO: Technically limited, LV Systolic function is moderately reduced, LV Is not well visualized, RA and LA mildly dilated, Mild to Mod TR, Mild MR, RV systolic pressure normal, Septal motion is consistent with conduction abnormality, Regional wall motion abnormalities cannot be excluded ASSESSMENT/PLAN: 83 y/o M with PMHx of CHF, COPD, HTN, HLD, CAD (s/p stenting x7 and pacemaker), Atrial Fibrillation, DM, chronic venous insufficiency, BPH was BIBEMS from [facility] for AMS and was admitted to the ICU for severe sepsis due to Cellulitus. #Septic Shock -Likely due B/L lower extremity cellulitis, Wound cultures noted above -Lactic acidosis resolved -Intubated (07/12), Extubated (07/17), tolerating 50% VentiMask, Can resume Bipap HS and PRN -Central Line placed (07/11); No longer on pressors -Maintain MAP >65 -CVP monitoring q12h -Continue Zosyn (Started on 07/10), Vanco (started on 07/12) -Blood, urine culture noted above -Hold home Anti-HTN meds -Wean off Hydrocortisone, D/C tmrw -Chest PT -Contact isolation precautions -ID (Dr. Thomas), Vascular surgery (Dr. Estrada), Cardiology (Dr. Peterson), Podiatry ( Dr. Greene) consulted, Appreciate recs #Coffee ground gastric aspirate -Likely due to acute gastritis -OG Tube placed (07/12), continue tube feeds -Hgb Reached 6.5, Given 1 unit pRBCs (07/13) -FOBT Positive -GI Consulted, Appreciate Rec's, Protonix 40mg IVPB daily -Conservative management without endoscopic intervention #Transaminitis -LFTs trending down; Continue to trend -Liver US noted above -Hepatitis panel #Hyperkalemia -Resolved; Continue to monitor #Elevated TSH -Likely due to Severe Sepsis; Consider Euthyroid Sick Syndrome, Less likely Myxedema coma -Endocrinology (Dr. Duron) Consulted, Appreciate Rec's -TSH Trending down; T3, T4 noted; Cortisol, ACTH pending -Synthroid dose increased to 50mcg Daily -Repeat labs after sepsis clears #AFib -Xarelto -Home dose Beta humberto held in the setting of Hypotension #DM -ISS, BGMs ACTID -Start Levemir 15u AM -A1c 6.8% -Hold Oral hypoglycemics #FEN PO fluids -Monitor for Hyperkalemia -Tube feeds #PPx -DVT: Xarelto Dispo: ICU placement; Extubation likely tmrw CODE STATUS: DNR Visit type - Emergency Visit Emergency Visit: Yes ED Registration Date: 07/10/18 Care time: The patient presented to the Emergency Department on the above date and was hospitalized for further evaluation of their emergent condition. - New Patient This patient is new to me today: No - Critical Care Critical Care patient: No - Discharge Referral Referred to [facility] No
[2018-07-17] MEDS: RIVAROXABAN 20 MG TABLET PO SCH (17:41)
--- NOTE | 2018-07-17 17:43 | PN ---
Teaching Attending Note Name of Resident: Gwen Richardson ATTENDING PHYSICIAN STATEMENT I saw and evaluated the patient. I reviewed the resident's note and discussed the case with the resident. I agree with the resident's findings and plan as documented. SUBJECTIVE: Patient is awake, s/p extubation. No fever or chills. OBJECTIVE: Vital Signs Temperature 97 F L 07/17/18 16:00 Pulse Rate 60 07/17/18 16:00 Respiratory Rate 18 07/17/18 16:00 Blood Pressure 120/55 L 07/17/18 16:00 O2 Sat by Pulse Oximetry (%) 97 07/17/18 11:15 GENERAL: The patient is intubated and sedated. HEAD: Normal with no signs of trauma. NECK: Trachea midline, full range of motion, supple. LUNGS: positive for scattered rhonchi bilaterally.on 50% VM HEART: Regular rate and rhythm, S1, S2 without murmur, rub or gallop. ABDOMEN: Soft, nontender, nondistended, normoactive bowel sounds. EXTREMITIES: 2+ pulses, warm, well-perfused, no edema. SKIN: Warm, dry, normal turgor, stage 1 sacral ulcer CBCD WBC 13.6 K/mm3 (4.0-10.0) H 07/17/18 05:30 RBC 2.60 M/mm3 (4.00-5.60) L 07/17/18 05:30 Hgb 8.7 GM/dL (11.7-16.9) L 07/17/18 05:30 Hct 26.4 % (35.4-49) L 07/17/18 05:30 MCV 101.5 fl (80-96) H 07/17/18 05:30 MCHC 33.1 g/dl (32.0-35.9) 07/17/18 05:30 RDW 17.8 % (11.9-15.9) H 07/17/18 05:30 Plt Count 229 K/MM3 (134-434) 07/17/18 05:30 MPV 9.0 fl (7.5-11.1) 07/17/18 05:30 CMP Sodium 146 mmol/L (136-145) H 07/17/18 05:30 Potassium 4.9 mmol/L (3.5-5.1) 07/17/18 05:30 Chloride 114 mmol/L (98-107) H 07/17/18 05:30 Carbon Dioxide 28 mmol/L (21-32) 07/17/18 05:30 Anion Gap 4 MMOL/L (8-16) L 07/17/18 05:30 BUN 31 mg/dL (7-18) H 07/17/18 05:30 Creatinine 0.9 mg/dL (0.55-1.3) 07/17/18 05:30 Creat Clearance w eGFR > 60 (>60) 07/17/18 05:30 Random Glucose 219 mg/dL (74-106) H 07/17/18 05:30 Calcium 7.9 mg/dL (8.5-10.1) L 07/17/18 05:30 Total Bilirubin 0.7 mg/dL (0.2-1) 07/16/18 06:00 AST 106 U/L (15-37) H 07/16/18 06:00 ALT 149 U/L (13-61) H 07/16/18 06:00 Alkaline Phosphatase 174 U/L (45-117) H 07/16/18 06:00 Total Protein 5.1 g/dl (6.4-8.2) L 07/16/18 06:00 Albumin 2.0 g/dl (3.4-5.0) L 07/16/18 06:00 CARDIAC ENZYMES Creatine Kinase 179 IU/L (26-308) 07/10/18 16:00 Troponin I < 0.02 ng/ml (0.00-0.05) 07/10/18 16:00 Current Medications Generic Name Dose Route Start Last Admin Trade Name Freq PRN Reason Stop Dose Admin Al Hydroxide/Mg Hydroxide 30 ml 07/10/18 19:52 Mylanta Oral Suspension - PO Q6H PRN INDIGESTION Albuterol/Ipratropium 1 amp 07/10/18 20:15 07/17/18 16:18 Duoneb - NEB 1 amp RQID [facility] Administration Carvedilol 3.125 mg 07/17/18 10:30 07/17/18 12:32 Coreg - NGT 3.125 mg BID AY[facility] Administration Chlorhexidine Gluconate 1 applic 07/10/18 22:00 07/16/18 21:30 Hibiclens For Decolonization - TP 1 applic HS AYDIN Administration Chlorhexidine Gluconate 15 ml 07/13/18 22:00 07/17/18 10:58 Peridex - MM 15 ml BID A[facility] Administration Ferrous Sulfate 325 mg 07/11/18 10:00 07/17/18 10:58 Feosol - PO 325 mg DAILY A[facility] Administration Hydrocortisone Sodium Succinate 25 mg 07/16/18 22:00 07/17/18 10:58 Solu-Cortef - IVPB 25 mg BID AY[facility]IN Administration Piperacillin Sod/Tazobactam 50 mls @ 100 mls/hr 07/11/18 02:00 07/17/18 17:40 Sod 3.375 gm/ Dextrose IVPB 100 mls/hr Q8H-IV [facility] Administration Protocol Vancomycin HCl 1,250 mg/ 250 mls @ 166.667 mls/hr 07/12/18 15:00 07/17/18 15: 23 Dextrose IVPB 166.667 mls/hr Q24H [facility] Administration Protocol Insulin Aspart 1 vial 07/16/18 12:00 07/17/18 17:18 Novolog Vial Sliding Scale - SQ Not Given Q6HPO COUNTS INCLUDE 234 BEDS AT THE [facility] Protocol Insulin Detemir 15 units 07/17/18 07:00 07/17/18 06:29 Levemir Vial SQ 15 units AM COUNTS INCLUDE 234 BEDS AT THE [facility] Administration Levothyroxine Sodium 50 mcg 07/17/18 07:00 07/17/18 06:31 Synthroid - PO 50 mcg DAILY@0700 COUNTS INCLUDE 234 BEDS AT THE [facility] Administration Pantoprazole Sodium 40 mg 07/15/18 10:00 07/17/18 10:57 Protonix Iv IVPUSH 40 mg DAILY [facility] Administration Polyethylene Glycol 17 gm 07/10/18 22:00 07/17/18 10:57 Miralax (For Daily Use) - PO 17 grams BID [facility]IN Administration Rivaroxaban 20 mg 07/15/18 18:00 07/17/18 17:41 Xarelto - PO Not Given DAILY@1800 COUNTS INCLUDE 234 BEDS AT THE [facility] Senna 8.8 mg 07/15/18 22:00 07/16/18 21:32 Senna Oral Solution - PO 8.8 mg HS [facility] Administration Home Medications Medication Instructions Recorded Albuterol 2.5/Ipratropium 0.5 1 neb IH QID 07/10/18 [Duoneb -] Atorvastatin Ca [Lipitor] 40 mg PO HS 07/10/18 Carvedilol [Coreg -] 6.25 mg PO BID 07/10/18 Docusate Sodium [Colace] 200 mg PO HS 07/10/18 Doxazosin Mesylate [Cardura Xl] 8 mg PO HS 07/10/18 Ferrous Sulfate [Feosol] 325 mg PO DAILY 07/10/18 Furosemide [Lasix -] 40 mg PO DAILY 07/10/18 Insulin Aspart [Novolog] 100 unit SQ ACHS 07/10/18 Insulin Detemir [Levemir Flextouch] 10 unit SQ HS 07/10/18 Losartan Potassium [Cozaar -] 50 mg PO DAILY 07/10/18 Mag Hydrox/Al Hydrox/Simeth 30 ml PO Q6H PRN 07/10/18 [Mylanta *Suspension*] Polyethylene Glycol 3350 [Miralax 17 gm PO BID 07/10/18 (For Daily Use) -] Rivaroxaban [Xarelto -] 20 mg PO DAILY 07/10/18 Sennosides [Senna] 17.2 mg PO HS 07/10/18 Silver Sulfadiazine 1% Top Cr 1 applic TP DAILY 07/10/18 [Silvadene -] clonazePAM [Klonopin -] 0.5 mg PO BID 07/10/18 Microbiology 07/11/18 03:30 Leg - Right Lower Gram Stain - Final 07/11/18 03:30 Leg - Right Lower Wound Culture - Preliminary Pseudomonas Aeruginosa Klebsiella Oxytoca Mr S Aureus Enterococcus Faecalis 07/10/18 11:15 Blood - Peripheral Venous Blood Culture - Final NO GROWTH AFTER 5 DAYS INCUBATION 07/10/18 11:00 Blood - Peripheral Venous Blood Culture - Final NO GROWTH AFTER 5 DAYS INCUBATION 07/10/18 12:20 Urine - Urine Clean Catch Urine Culture - Final Staphylococcus Warneri ASSESSMENT AND PLAN: Patient is a 83 y/o man with h/o CAD, s/p stents, permanent A fib, Systolic heart failure, HTN, HLP, DM , CKD , Anemia, COPD,recent admission for acute CHF exacerbation who was sent from [place] for LE pain and was found to have hypothermia and hypotension. # S/p extubation today; Acute hypoxic, hypercapnic respiratory failure. in ICU continue to monitor, on SoluCortef stress dose. # S/P Septic shock: off NE drip ; multifactorial due to LE cellulites Cont. Zosyn, Vancomycin . # UTI due to Staphylococcus Warneri sensitive to Vancomycin # RLE open wounds, culture positive for Pseudomonas Aeruginosa; Klebsiella Oxytoca; Mr S Aureus; Enterococcus Faecalis, on Vanco and Zosyn continue #Abn TFT, likely due to sick euthyroid syndrome, repeat the level post recovery # H/o A fib: On Xarelto continue s/p extubation , On coreg continue. # H/o CHF: not in acute decompensated CHF now, hold lasix. patient is in ICU , DVt Px: SCDs. patient is DNR critical care time of 35min.
[2018-07-17] MEDS ORDERED: PT OWN MED DRAWER 7, Y5N ONE (21:29)
[2018-07-17] MEDS: SENNOSIDES 8.8 MG/5 ML BULK BOTTLE PO SCH (21:30)
[2018-07-17] MEDS: CHLORHEXIDINE GLUCONATE 4% CLEANSER FOR DECOLONIZATION TP SCH (21:30)
[2018-07-18] MEDS ORDERED: PIPERACILLIN/TAZOBACTAM 3.375 GM VIAL IVPB ONE ×3 (01:25→17:56)
[2018-07-18] MEDS ORDERED: DEXTROSE 5%-WATER - 50 ML IVPB ONE ×3 (01:25→17:56)
[2018-07-18] MEDS: PIPERACILLIN/TAZOB 3.375 GM 3.375 GM in DEXTROSE 5%-WATER - 50 ML IVPB SCH ×3 (01:30→18:50)
[2018-07-18] MEDS ORDERED: HEMOQUE TEST 1 EACH EACH ONE (05:11)
[2018-07-18] MEDS ORDERED: DEXTROSE 50%-WATER - 25 GM/50 ML VIAL IVPUSH ONE (05:17)
[2018-07-18] MEDS: INSULIN SLIDING SCALE (NOVOLOG) 1 VIAL SQ SCH ×4 (05:24→18:50)
[2018-07-18] MEDS ORDERED: DEXTROSE 50%-WATER 25 GM/50 ML DISP.SYRIN ONE (05:27)
[2018-07-18 05:48] LABS: HEMOGLOBIN 8.7 GM/dL (11.7-16.9); MCHC 32.4 g/dl (32.0-35.9); MEAN PLT VOLUME 8.9 fl (7.5-11.1); PLATELET COUNT 236 K/MM3 (134-434); RBC 2.65 M/mm3 (4.00-5.60); RDW 18.5 % (11.9-15.9); WHITE BLOOD COUNT 12.2 K/mm3 (4.0-10.0)
[2018-07-18 06:10] LABS: INR 1.28 (0.83-1.09); PROTHROMBIN TIME (PATIENT) 15.2 SEC (9.7-13.0)
[2018-07-18 06:12] LABS: ACTIVATED PTT 30.4 SECONDS (25.2-36.5)
[2018-07-18 06:15] LABS: ANION GAP 2 MMOL/L (8-16); BLOOD UREA NITROGEN 23 mg/dL (7-18); CALCIUM 8.1 mg/dL (8.5-10.1); CHLORIDE 114 mmol/L (98-107); CO2 29 mmol/L (21-32); CREATININE 0.7 mg/dL (0.55-1.3); GLUCOSE,RANDOM 73 mg/dL (74-106); PHOSPHOROUS 2.9 mg/dL (2.5-4.9); POTASSIUM 4.6 mmol/L (3.5-5.1); SODIUM 145 mmol/L (136-145)
--- NOTE | 2018-07-18 06:40 | PN ---
Progress Note (short form) - Note Progress Note: Chief Complaint: Events noted, notes reviewed, extubated yesterday, awake and alert, responding to verbal commands by grunting, in no distress History of Present Illness: Seen and examined in the ICU. Events noted, notes reviewed, extubated yesterday , awake and alert, responding to verbal commands by grunting, in no distress Echocardiography dated 05/02/2018 revealed systolic LV dysfunction with LVEF 40- 45%, moderate (mean gradient of 27.7 and peak gradient 46 mmHg, LYNETTE of 0.78 cm2), mild MR, mild to moderate TR Medications: Current Medications Al Hydroxide/Mg Hydroxide (Mylanta Oral Suspension -) 30 ml PO Q6H PRN PRN Reason: INDIGESTION Albuterol/Ipratropium (Duoneb -) 1 amp NEB RQID [facility] Last Admin: 07/17/18 20:35 Dose: 1 amp Carvedilol (Coreg -) 3.125 mg NGT BID [facility] Last Admin: 07/17/18 22:51 Dose: Not Given Chlorhexidine Gluconate (Hibiclens For Decolonization -) 1 applic TP HS [facility] Last Admin: 07/17/18 21:30 Dose: 1 applic Chlorhexidine Gluconate (Peridex -) 15 ml MM BID [facility] Last Admin: 07/17/18 22:52 Dose: Not Given Ferrous Sulfate (Feosol -) 325 mg PO DAILY [facility] Last Admin: 07/17/18 10:58 Dose: 325 mg Hydrocortisone Sodium Succinate (Solu-Cortef -) 25 mg IVPB DAILY [facility] Piperacillin Sod/Tazobactam (Sod 3.375 gm/ Dextrose) 50 mls @ 100 mls/hr IVPB Q8H-IV [facility]; Protocol Last Admin: 07/18/18 01:30 Dose: 100 mls/hr Vancomycin HCl 1,250 mg/ (Dextrose) 250 mls @ 166.667 mls/hr IVPB Q24H [facility]; Protocol Last Admin: 07/17/18 15:23 Dose: 166.667 mls/hr Insulin Aspart (Novolog Vial Sliding Scale -) 1 vial SQ Q6HPO [facility]; Protocol Last Admin: 07/18/18 05:24 Dose: Not Given Insulin Detemir (Levemir Vial) 15 units SQ AM [facility] Last Admin: 07/17/18 06:29 Dose: 15 units Levothyroxine Sodium (Synthroid -) 50 mcg PO DAILY@0700 [facility] Last Admin: 07/17/18 06:31 Dose: 50 mcg Levothyroxine Sodium (Synthroid Injection -) 25 mcg IVPUSH DAILY ONE Stop: 07/18/18 07:01 Pantoprazole Sodium (Protonix Iv) 40 mg IVPUSH DAILY [facility] Last Admin: 07/17/18 10:57 Dose: 40 mg Polyethylene Glycol (Miralax (For Daily Use) -) 17 gm PO BID [facility] Last Admin: 07/17/18 22:52 Dose: Not Given Rivaroxaban (Xarelto -) 20 mg PO DAILY@1800 [facility] Last Admin: 07/17/18 17:41 Dose: Not Given Senna (Senna Oral Solution -) 8.8 mg PO HS [facility] Last Admin: 07/17/18 21:30 Dose: 8.8 mg Review of Systems - Review of Systems Unable to obtain Vital Signs: Last Vital Signs Temp Pulse Resp BP Pulse Ox 97.1 F L 60 16 122/75 100 07/18/18 06:00 07/18/18 06:00 07/18/18 06:00 07/18/18 06:00 07/17/18 22:00 Intake & Output 07/15/18 07/16/18 07/17/18 07/18/18 23:59 23:59 23:59 23:59 Intake Total 949 1542 982 0 Output Total 0520 930 0284 900 Balance -201 592 -718 -900 Weight 168 lb 8 oz 166 lb 165 lb 5 oz 163 lb 8 oz Neck: Supple Negative JVD No Bruit Respiratory: Diminished Breath Sounds at the Bases Bilateral Scattered Rhonchi Cardiovascular: S1 S2 Regularly Rate and Rhythm Grade 2-3/6 SM Gastrointestinal: Soft Distended Benign Normal Bowel Sounds Ext: Edema Bilateral Labs: CBC, BMP ABG Results ABG pH 7.36 (7.35-7.45) 07/15/18 06:00 ABG pCO2 at Pt Temp 39.2 mmHg (35-45) 07/15/18 06:00 ABG pO2 at Pt Temp 101.0 mmHg (68-100) H D 07/15/18 06:00 ABG HCO3 21.8 meq/L (22-26) L 07/15/18 06:00 ABG O2 Sat (Measured) 97.6 % (90-98.9) 07/15/18 06:00 ABG O2 Content 12.2 % vol (15-22) L 07/15/18 06:00 ABG Base Excess -2.7 meq/l (-2-2) L 07/15/18 06:00 CBC, BMP 07/18/18 05:00 07/18/18 05:00 Hepatic Panel Total Bilirubin 0.7 mg/dL (0.2-1) 07/16/18 06:00 AST 106 U/L (15-37) H 07/16/18 06:00 ALT 149 U/L (13-61) H 07/16/18 06:00 Alkaline Phosphatase 174 U/L (45-117) H 07/16/18 06:00 Albumin 2.0 g/dl (3.4-5.0) L 07/16/18 06:00 INR, PTT INR 1.28 (0.83-1.09) H 07/18/18 05:00 Fibrinogen 423.0 mg/dL (238-498) 07/12/18 05:30 Assessment/Plan ASSESSMENT: 1. Post respiratory failure off of mechanical ventilation 2. Post septic shock 3. Systolic/diastolic LV dysfunction with acute on chronic class II-III NYHA classification LV failure, resolving 4. Probable class II-III NYHA classification RV failure with ascitis and bilateral lower extremity edema, although no evidence on TTE, resolving 5. CAD post PCI/stent, angina pectoris 6. Persistent atrial fibrillation [id number] 6 on A/C with DOAC's/Xarelto 7. MR mild 8. TR mild to moderate no RVSP measurement 9. AV stenosis moderate to severe by valve area but moderate based on gradient, probable low output/low gradient 10. AV block post PPM 11. HTN 11. DM 12. Hypercholesterolemia 13. COPD 14. Shock liver resolving 15. CKD, pre-renal azotemia 16. Anemia PLAN: 1. Continue Coreg 2. Resume ARBS/Valsartan with caution and close monitoring of renal function, hemodynamics permitting 3. Continue Xarelto with caution and close monitoring of Hg 4. Diuretics as needed with close monitoring of renal function 5. antibiotics as per the primary team Vasquez Huynh M.D.
[2018-07-18] MEDS: INSULIN (LEVEMIR) 100 UNITS/ML UNITS SQ SCH (06:49)
[2018-07-18] MEDS ORDERED: LEVOTHYROXINE SODIUM 100 MCG VIAL IVPUSH ONE (07:00)
[2018-07-18] MEDS: ALBUTEROL SO4 2.5/IPRATROPIUM 0.5 INH SOL 3 ML VIAL.NEB. NEB SCH ×4 (07:40→20:40)
[2018-07-18 08:34] LABS: ARTERIAL BLD GAS O2 SATURATION 99.4 % (90-98.9); ARTERIAL BLOOD GAS BASE EXCESS 3.8 meq/l (-2-2); ARTERIAL BLOOD GAS PCO2 39.4 mmHg (35-45); ARTERIAL BLOOD GAS pH 7.46 (7.35-7.45)
[2018-07-18 08:36] LABS: ALLENS TEST POSITIVE
[2018-07-18] MEDS: POLYETHYLENE GLYCOL 3350 119 GM BTL PO SCH ×2 (09:24→22:10)
[2018-07-18] MEDS: FERROUS SO4 325 MG TABLET (FP) PO SCH (09:24)
[2018-07-18] MEDS: CARVEDILOL 3.125 MG TABLET (FP) NGT SCH ×2 (09:24→22:10)
[2018-07-18] MEDS ORDERED: PT OWN MED DRAWER 7, Y5N ONE ×5 (09:30→22:12)
[2018-07-18] MEDS: CHLORHEXIDINE GLUCONATE 0.12% 15ML CUP MM SCH ×2 (09:34→22:11)
[2018-07-18] MEDS: PANTOPRAZOLE SODIUM 40 MG VIAL IVPUSH SCH (09:34)
[2018-07-18] MEDS ORDERED: HYDROCORTISONE SOD SUCCINATE 100 MG/2 ML VIAL IVPB SCH (10:00)
[2018-07-18] MEDS ORDERED: FUROSEMIDE 40 MG/4 ML INJECTABLE VIAL IVPUSH ONE (10:30)
--- NOTE | 2018-07-18 11:43 | PN ---
Teaching Attending Note Name of Resident: Capri Erickson ATTENDING PHYSICIAN STATEMENT I saw and evaluated the patient. I reviewed the resident's note and discussed the case with the resident. I agree with the resident's findings and plan as documented. SUBJECTIVE: Pt seen and examined in the ICU. Extubated yesterday without incident. Remains somnolent but arousable and following commands. Saturating well on 50% ventimask. OBJECTIVE: Vital Signs Period Temp Pulse Resp BP Sys/Kuo Pulse Ox Last 24 Hr 97 F-97.8 F 60-61 15-18 115-143/50-75 100-100 Intake & Output 07/15/18 07/16/18 07/17/18 07/18/18 23:59 23:59 23:59 23:59 Intake Total 949 1542 982 0 Output Total 1770 092 0208 900 Balance -201 354 -418 -900 Weight 76.43 kg 75.296 kg 74.984 kg 74.162 kg Gen: somnolent but arousable Heart: RRR Lung: decreased breath sounds at the bases Abd: soft, nontender Ext: + edema CBC, BMP 07/18/18 05:00 07/18/18 05:00 Active Medications Al Hydroxide/Mg Hydroxide (Mylanta Oral Suspension -) 30 ml PO Q6H PRN PRN Reason: INDIGESTION Albuterol/Ipratropium (Duoneb -) 1 amp NEB RQID [facility] Last Admin: 07/18/18 07:40 Dose: 1 amp Carvedilol (Coreg -) 3.125 mg NGT BID [facility] Last Admin: 07/18/18 09:24 Dose: Not Given Chlorhexidine Gluconate (Hibiclens For Decolonization -) 1 applic TP HS [facility] Last Admin: 07/17/18 21:30 Dose: 1 applic Chlorhexidine Gluconate (Peridex -) 15 ml MM BID [facility] Last Admin: 07/18/18 09:34 Dose: Not Given Ferrous Sulfate (Feosol -) 325 mg PO DAILY [facility] Last Admin: 07/18/18 09:24 Dose: Not Given Piperacillin Sod/Tazobactam (Sod 3.375 gm/ Dextrose) 50 mls @ 100 mls/hr IVPB Q8H-IV [facility]; Protocol Last Admin: 07/18/18 09:34 Dose: 100 mls/hr Vancomycin HCl 1,250 mg/ (Dextrose) 250 mls @ 166.667 mls/hr IVPB Q24H [facility]; Protocol Last Admin: 07/17/18 15:23 Dose: 166.667 mls/hr Insulin Aspart (Novolog Vial Sliding Scale -) 1 vial SQ Q6HPO [facility]; Protocol Last Admin: 07/18/18 05:24 Dose: Not Given Insulin Detemir (Levemir Vial) 15 units SQ AM [facility] Last Admin: 07/18/18 06:49 Dose: Not Given Levothyroxine Sodium (Synthroid -) 50 mcg PO DAILY@0700 [facility] Last Admin: 07/17/18 06:31 Dose: 50 mcg Pantoprazole Sodium (Protonix Iv) 40 mg IVPUSH DAILY [facility] Last Admin: 07/18/18 09:34 Dose: 40 mg Polyethylene Glycol (Miralax (For Daily Use) -) 17 gm PO BID [facility] Last Admin: 07/18/18 09:24 Dose: Not Given Rivaroxaban (Xarelto -) 20 mg PO DAILY@1800 [facility] Last Admin: 07/17/18 17:41 Dose: Not Given Senna (Senna Oral Solution -) 8.8 mg PO HS [facility] Last Admin: 07/17/18 21:30 Dose: 8.8 mg ASSESSMENT AND PLAN: Acute Hypoxic and Hypercapneic Respiratory Failure Pneumonia Septic Shock resolving Lactic Acidosis resolved Acute Kidney Injury improving Elevated LFTs likely Ischemic Injury LV Systolic Dysfunction Atrial Fibrillation CAD HTN DM Hyperlipidemia - continue antibiotics - off pressors, maintain MAP >65 - d/c central line - monitor urine output, creatinine - taper off steroids - taper Fio2 to keep Spo2 >90%, can try nasal cannula - monitor lytes - continue anticoagulation to keep INR 2-3 - DVT/GI prophylaxis - can monitor on floor critical care time spent in reviewing chart, evaluating patient and formulating plan 35 min
--- NOTE | 2018-07-18 12:02 | PN ---
Progress Note, Physician History of Present Illness: stable continues to improve more awake still very confused - Current Medication List Current Medications: Active Medications Al Hydroxide/Mg Hydroxide (Mylanta Oral Suspension -) 30 ml PO Q6H PRN PRN Reason: INDIGESTION Albuterol/Ipratropium (Duoneb -) 1 amp NEB RQID [facility] Last Admin: 07/18/18 07:40 Dose: 1 amp Carvedilol (Coreg -) 3.125 mg NGT BID [facility] Last Admin: 07/18/18 09:24 Dose: Not Given Chlorhexidine Gluconate (Hibiclens For Decolonization -) 1 applic TP HS [facility] Last Admin: 07/17/18 21:30 Dose: 1 applic Chlorhexidine Gluconate (Peridex -) 15 ml MM BID [facility] Last Admin: 07/18/18 09:34 Dose: Not Given Ferrous Sulfate (Feosol -) 325 mg PO DAILY [facility] Last Admin: 07/18/18 09:24 Dose: Not Given Piperacillin Sod/Tazobactam (Sod 3.375 gm/ Dextrose) 50 mls @ 100 mls/hr IVPB Q8H-IV [facility]; Protocol Last Admin: 07/18/18 09:34 Dose: 100 mls/hr Vancomycin HCl 1,250 mg/ (Dextrose) 250 mls @ 166.667 mls/hr IVPB Q24H [facility]; Protocol Last Admin: 07/17/18 15:23 Dose: 166.667 mls/hr Insulin Aspart (Novolog Vial Sliding Scale -) 1 vial SQ Q6HPO [facility]; Protocol Last Admin: 07/18/18 05:24 Dose: Not Given Insulin Detemir (Levemir Vial) 15 units SQ AM [facility] Last Admin: 07/18/18 06:49 Dose: Not Given Levothyroxine Sodium (Synthroid -) 50 mcg PO DAILY@0700 [facility] Last Admin: 07/17/18 06:31 Dose: 50 mcg Pantoprazole Sodium (Protonix Iv) 40 mg IVPUSH DAILY [facility] Last Admin: 07/18/18 09:34 Dose: 40 mg Polyethylene Glycol (Miralax (For Daily Use) -) 17 gm PO BID [facility] Last Admin: 07/18/18 09:24 Dose: Not Given Rivaroxaban (Xarelto -) 20 mg PO DAILY@1800 [facility] Last Admin: 07/17/18 17:41 Dose: Not Given Senna (Senna Oral Solution -) 8.8 mg PO HS [facility] Last Admin: 07/17/18 21:30 Dose: 8.8 mg - Objective Vital Signs: Vital Signs Temperature 97.1 F L 07/18/18 10:00 Pulse Rate 60 07/18/18 08:00 Respiratory Rate 17 07/18/18 10:00 Blood Pressure 143/66 07/18/18 10:00 O2 Sat by Pulse Oximetry (%) 100 07/17/18 22:00 Constitutional: Yes: Other Cardiovascular: Yes: S1, S2 Respiratory: Yes: Regular, Poor Air Entry Gastrointestinal: Yes: Normal Bowel Sounds, Soft Musculoskeletal: Yes: Other Extremities: Yes: Other Integumentary: Yes: Erythema (improved) Wound/Incision: Yes: Other Neurological: Yes: Alert, Confusion Labs: CBC, BMP 07/18/18 05:00 07/18/18 05:00 INR, PTT INR 1.28 (0.83-1.09) H 07/18/18 05:00 Fibrinogen 423.0 mg/dL (238-498) 07/12/18 05:30 Assessment/Plan septic shock Systolic / Diastolic CHF COPD HTN HLD CAD S/P PCI x 7 PPM Atrial Fibrillation DM Chronic venous insufficiency BPH s/p TURP CKD Anemia cellulitis of the legs plan continue abx iv fluids close watch as per icu monitor neuro status await for all test rest as per icu resp support cc 40 min
--- NOTE | 2018-07-18 12:19 | PN ---
Physical Exam: SUBJECTIVE: Patient seen and examined at bedside. No acute events overnight. Patient is still somnolent but more awake when called and talking more, following commands. On nasal cannula this morning and maintaining saturation >90 %. Speech and swallow evaluation done, will be able to tolerate PO diet, no NGT indicated. Central line removed. OBJECTIVE: Vital Signs Period Temp Pulse Resp BP Sys/Kuo Pulse Ox Last 24 Hr 97 F-97.4 F 60-61 15-18 115-143/50-75 97-100 GENERAL: The patient is somnolent, but arousable by voice and talking more, on 3L NC HEAD: Normal with no signs of trauma. NECK: Trachea midline, full range of motion, supple. LUNGS: +scattered rhonchi bilaterally. HEART: Regular rate and rhythm, S1, S2 without murmur, rub or gallop. ABDOMEN: Soft, nontender, nondistended, normoactive bowel sounds. UPPER EXTREMITIES: 2+ pulses, warm, well-perfused, no edema. LOWER EXTREMITIES: +circumferential erythema and warmth bilaterally from ankle to mid-baker area with scattered wounds SKIN: Warm, dry, normal turgor Laboratory Results - last 24 hr 07/17/18 07/17/18 07/17/18 12:05 16:56 23:48 WBC RBC Hgb Hct MCV MCH MCHC RDW Plt Count MPV PT with INR INR PTT (Actin FS) Puncture Site ABG pH ABG pCO2 at Pt Temp ABG pO2 at Pt Temp ABG HCO3 ABG O2 Sat (Measured) ABG O2 Content ABG Base Excess Jaret Test Oxygen Flow Rate Sodium Potassium Chloride Carbon Dioxide Anion Gap BUN Creatinine Creat Clearance w eGFR POC Glucometer 215.21411 155.25353 [phone] Random Glucose Calcium Phosphorus Magnesium 07/18/18 07/18/18 07/18/18 05:00 05:00 05:00 WBC 12.2 H RBC 2.65 L Hgb 8.7 L Hct 27.0 L MCV 102.0 H MCH 33.0 MCHC 32.4 RDW 18.5 H Plt Count 236 MPV 8.9 PT with INR 15.20 H INR 1.28 H PTT (Actin FS) 30.4 Puncture Site ABG pH ABG pCO2 at Pt Temp ABG pO2 at Pt Temp ABG HCO3 ABG O2 Sat (Measured) ABG O2 Content ABG Base Excess Jaret Test Oxygen Flow Rate Sodium 145 Potassium 4.6 Chloride 114 H Carbon Dioxide 29 Anion Gap 2 L BUN 23 H Creatinine 0.7 Creat Clearance w eGFR > 60 POC Glucometer Random Glucose 73 L Calcium 8.1 L Phosphorus 2.9 Magnesium 2.0 07/18/18 07/18/18 07/18/18 05:17 07:17 08:29 WBC RBC Hgb Hct MCV MCH MCHC RDW Plt Count MPV PT with INR INR PTT (Actin FS) Puncture Site Right radial ABG pH 7.46 H ABG pCO2 at Pt Temp 39.4 ABG pO2 at Pt Temp 158.0 H* D ABG HCO3 27.4 H ABG O2 Sat (Measured) 99.4 H ABG O2 Content 12.7 L ABG Base Excess 3.8 H Jaret Test Positive Oxygen Flow Rate Yes Sodium Potassium Chloride Carbon Dioxide Anion Gap BUN Creatinine Creat Clearance w eGFR POC Glucometer 63.23308 152.41892 Random Glucose Calcium Phosphorus Magnesium Active Medications Generic Name Dose Route Start Last Admin Trade Name Freq PRN Reason Stop Dose Admin Al Hydroxide/Mg Hydroxide 30 ml 07/10/18 19:52 Mylanta Oral Suspension - PO Q6H PRN INDIGESTION Albuterol/Ipratropium 1 amp 07/10/18 20:15 07/18/18 11:20 Duoneb - NEB 1 amp RQID AYDIN Administration Carvedilol 3.125 mg 07/17/18 10:30 07/18/18 09:24 Coreg - NGT Not Given BID AYDIN Chlorhexidine Gluconate 1 applic 07/10/18 22:00 07/17/18 21:30 Hibiclens For Decolonization - TP 1 applic HS AYDIN Administration Chlorhexidine Gluconate 15 ml 07/13/18 22:00 07/18/18 09:34 Peridex - MM Not Given BID AYDIN Ferrous Sulfate 325 mg 07/11/18 10:00 07/18/18 09:24 Feosol - PO Not Given DAILY AYDIN Piperacillin Sod/Tazobactam 50 mls @ 100 mls/hr 07/11/18 02:00 07/18/18 09:34 Sod 3.375 gm/ Dextrose IVPB 100 mls/hr Q8H-IV AYDIN Administration Protocol Vancomycin HCl 1,250 mg/ 250 mls @ 166.667 mls/hr 07/12/18 15:00 07/17/18 15: 23 Dextrose IVPB 166.667 mls/hr Q24H AYDIN Administration Protocol Insulin Aspart 1 vial 07/16/18 12:00 07/18/18 05:24 Novolog Vial Sliding Scale - SQ Not Given Q6HPO [facility] Protocol Insulin Detemir 15 units 07/17/18 07:00 07/18/18 06:49 Levemir Vial SQ Not Given AM [facility] Levothyroxine Sodium 50 mcg 07/17/18 07:00 07/17/18 06:31 Synthroid - PO 50 mcg DAILY@0700 [facility] Administration Pantoprazole Sodium 40 mg 07/15/18 10:00 07/18/18 09:34 Protonix Iv IVPUSH 40 mg DAILY [facility] Administration Polyethylene Glycol 17 gm 07/10/18 22:00 07/18/18 09:24 Miralax (For Daily Use) - PO Not Given BID [facility] Rivaroxaban 20 mg 07/15/18 18:00 07/17/18 17:41 Xarelto - PO Not Given DAILY@1800 [facility] Senna 8.8 mg 07/15/18 22:00 07/17/18 21:30 Senna Oral Solution - PO 8.8 mg HS [facility] Administration ASSESSMENT/PLAN: Patient is an 83 year old male with significant past medical history of sys/ diastolic CHF; COPD; HTN; HLD; CAD (s/p stenting x7 and pacemaker); Atrial Fibrillation; DM; chronic venous insufficiency; BPH s/p TURP; CKD; anemia for B/ L leg pain and abnormal gait was sent from [facility] for evaluation of B/L lower extremity pain. #Infectious Disease 1)Septic shock likely secondary to cellulitis of B/L Lower extremity, improving -Off levophed, maintaining MAP >65 -Discontinued Solu-cortef and Fludrocortisone -ID (Dr. Thomas) consulted. Recommendations appreciated. -Continue Vancomycin 1250mg daily Day 9 and Zosyn 3.375 q8h Day 10 -For vanc trough levels this PM prior to dose. -Wound cultures - Presumptive Pseudomonas, Lactose fermenting GNB, Presumptive MRSA, Group D Strep or Enterococcus -Contact isolation precautions -Dr. Estrada consulted. Recommendations appreciated. -Air mattress recommended. -Ensure off-loading to all bony areas with Allevyn/Optifoam -Clean open wounds with normal saline and apply Silvadene -Continue antibiotics. -Podiatry(Dr. Greene) consulted for avulsed L great toe nail. -Heel pads b/l. Will debride nail left hallux. 2)Lactic acidosis: likely 2/2 sepsis, resolved -Lactic acid 2.8 --> 1.5 #Pulmonology 1)Acute Hypoxic and Hypercapneic respiratory failure: Likely 2/2 Pneumonia and Sepsis -On 3L NC, saturating at 100% -On IV Vanc/Zosyn. -Bipap at bedtime STA and PRN during the day 2)COPD -Duoneb QID 3)Obstructive Sleep Apnea -Bipap 16/10 at night time STA and daytime PRN #Endocrinology 1)Hypothyroidism -TSH elevated 14.8 --> 13.2 -free T4 0.8 -Hypotension, hypothermia, hypoglycemia likely 2/2 sepsis. -Endocrinology (Dr. Duron) consulted. Recommendations appreciated. -Synthroid 50mcg daily at 7am -IV antibiotics 2)Diabetes Mellitus -A1c - 6.8 -Levemir 15 units at AM -Insulin sliding scale implemented -[facility] ACHS #Cardiovascular 1)Systolic/Diastolic CHF -BNP 1180. -Echocardiogram done. -Lasix 40mg given once. Lasix PRN for now. -Gentle hydration PRN 2)Prolonged QTc: 614 -Avoid medications causing prolonged QTc. -Repeat EKG: QTc 535 3)CAD (s/p stenting x7 and pacemaker) -Continue Lipitor 40mg PO HS -On Xarelto 20mg daily 4)Hypertension -hold home anti-hypertensive medications -Will monitor BP. Maintain MAP >65 5)Hyperlipidemia -Lipitor 40mg PO HS 6)Atrial Fibrillation: rate controlled -On Xarelto 20mg daily #Gastroenterology 1)Transaminitis likely 2/2 sepsis, improved -LFTs trending down -Liver ultrasound done- Right pleural effusion and trace ascites. Thick walled gallbladder with biliary sludge. -Hepatitis panel. -will continue to monitor 2)Coffee ground-containing gastric aspirate likely 2/2 acute gastritis, resolved -GI (Dr. Rodriguez) consulted. Recommendations appreciated. -Likely 2/2 septic shock along with component of stress gastritis -Protonix 40mg IV daily. -Avoid NSAIDs 3)Dysphagia -Speech and swallow evaluation. Recommendations appreciated. -Trial of magic cup, feed slowly, wait for 2 swallows before next 1/2 tsp given. -May be able to tolerate dysphagia puree/honey tomorrow, as patient improves. -Will follow for diet upgrade. #Nephrology 1)CKD -elevated BUN likely 2/2 to dehydration -IVF PRN 2)Hyperkalemia, resolved -will continue to monitor #Hematology 1)Macrocytic anemia: stable -H/H 8.03/31 -monitor CBC #FEN -IVF boluses PRN -Routine bmp monitoring -Trial of magic cup today. May be able to tolerate dysphagia puree/honey tomorrow. #Prophylaxis 1)DVT - on Xarelto 20mg daily 2)GI - Protonix 40mg IV daily #Disposition -DNR -Palliative care on board. -For transfer to med-surg Visit type - Emergency Visit Emergency Visit: Yes ED Registration Date: 07/10/18 Care time: The patient presented to the Emergency Department on the above date and was hospitalized for further evaluation of their emergent condition. - New Patient This patient is new to me today: Yes Date on this admission: 07/18/18 - Critical Care Critical Care patient: Yes Total Critical Care Time (in minutes): 40 Critical Care Statement: The care of this patient involved high complexity decision making to prevent further life threatening deterioration of the patient 's condition and/or to evaluate & treat vital organ system(s) failure or risk of failure.
[2018-07-18] MEDS ORDERED: FUROSEMIDE 40 MG/4 ML INJECTABLE VIAL ONE (13:24)
--- NOTE | 2018-07-18 15:20 | PN ---
Physical Exam: SUBJECTIVE: Patient seen and examined this morning at bedside. Patient responsive to verbal commands. No acute overnight events as per nursing. OBJECTIVE: Vital Signs Period Temp Pulse Resp BP Sys/Kuo Pulse Ox Last 24 Hr 97 F-97.4 F 60-61 14-18 118-143/55-75 97-100 GENERAL: Somnolent but more arousable that yesterday HEAD: NCAT NECK: Right Sided IJ Placed; was informed by ICU staff that this was removed after my interview LUNGS: Scattered Rhonchi, on ventimask HEART: Regular rate and rhythm, normal S1 and S2, LLSB Murmur ABDOMEN: Soft, nontender, not distended, normoactive bowel sounds BACK: Stage 2 ulcer superior to the gluteal fold without active drainage or surrounding erythema EXTREMITIES: 2+ pulses, No edema. Multiple, Lower extremity wounds without active drainage, Erythema and warmth continue to improve. Covered in dressing; New eschar over RLE healing wound SKIN: Warm, dry Laboratory Results - last 24 hr 07/18/18 07/18/18 07/18/18 05:00 05:00 05:00 WBC 12.2 H RBC 2.65 L Hgb 8.7 L Hct 27.0 L MCV 102.0 H MCH 33.0 MCHC 32.4 RDW 18.5 H Plt Count 236 MPV 8.9 PT with INR 15.20 H INR 1.28 H PTT (Actin FS) 30.4 Puncture Site ABG pH ABG pCO2 at Pt Temp ABG pO2 at Pt Temp ABG HCO3 ABG O2 Sat (Measured) ABG O2 Content ABG Base Excess Jaret Test Oxygen Flow Rate Sodium 145 Potassium 4.6 Chloride 114 H Carbon Dioxide 29 Anion Gap 2 L BUN 23 H Creatinine 0.7 Creat Clearance w eGFR > 60 POC Glucometer Random Glucose 73 L Calcium 8.1 L Phosphorus 2.9 Magnesium 2.0 07/18/18 07/18/18 07/18/18 05:17 07:17 08:29 WBC RBC Hgb Hct MCV MCH MCHC RDW Plt Count MPV PT with INR INR PTT (Actin FS) Puncture Site Right radial ABG pH 7.46 H ABG pCO2 at Pt Temp 39.4 ABG pO2 at Pt Temp 158.0 H* D ABG HCO3 27.4 H ABG O2 Sat (Measured) 99.4 H ABG O2 Content 12.7 L ABG Base Excess 3.8 H Jaret Test Positive Oxygen Flow Rate Yes Sodium Potassium Chloride Carbon Dioxide Anion Gap BUN Creatinine Creat Clearance w eGFR POC Glucometer 63.01356 152.96012 Random Glucose Calcium Phosphorus Magnesium Microbiology 07/11/18 03:30 Leg - Right Lower Gram Stain - Final 07/11/18 03:30 Leg - Right Lower Wound Culture - Preliminary Pseudomonas Aeruginosa Klebsiella Oxytoca Mr S Aureus Enterococcus Faecalis 07/10/18 11:15 Blood - Peripheral Venous Blood Culture - Final NO GROWTH AFTER 5 DAYS INCUBATION 07/10/18 11:00 Blood - Peripheral Venous Blood Culture - Final NO GROWTH AFTER 5 DAYS INCUBATION 07/10/18 12:20 Urine - Urine Clean Catch Urine Culture - Final Staphylococcus Warneri Active Medications Al Hydroxide/Mg Hydroxide (Mylanta Oral Suspension -) 30 ml PO Q6H PRN PRN Reason: INDIGESTION Albuterol/Ipratropium (Duoneb -) 1 amp NEB RQID [facility] Last Admin: 07/18/18 11:20 Dose: 1 amp Carvedilol (Coreg -) 3.125 mg NGT BID [facility] Last Admin: 07/18/18 09:24 Dose: Not Given Chlorhexidine Gluconate (Hibiclens For Decolonization -) 1 applic TP HS [facility] Last Admin: 07/17/18 21:30 Dose: 1 applic Chlorhexidine Gluconate (Peridex -) 15 ml MM BID [facility] Last Admin: 07/18/18 09:34 Dose: Not Given Ferrous Sulfate (Feosol -) 325 mg PO DAILY [facility] Last Admin: 07/18/18 09:24 Dose: Not Given Piperacillin Sod/Tazobactam (Sod 3.375 gm/ Dextrose) 50 mls @ 100 mls/hr IVPB Q8H-IV [facility]; Protocol Last Admin: 07/18/18 09:34 Dose: 100 mls/hr Vancomycin HCl 1,250 mg/ (Dextrose) 250 mls @ 166.667 mls/hr IVPB Q24H [facility]; Protocol Last Admin: 07/17/18 15:23 Dose: 166.667 mls/hr Insulin Aspart (Novolog Vial Sliding Scale -) 1 vial SQ Q6HPO [facility]; Protocol Last Admin: 07/18/18 13:34 Dose: Not Given Insulin Detemir (Levemir Vial) 15 units SQ AM [facility] Last Admin: 07/18/18 06:49 Dose: Not Given Levothyroxine Sodium (Synthroid -) 50 mcg PO DAILY@0700 [facility] Last Admin: 07/17/18 06:31 Dose: 50 mcg Pantoprazole Sodium (Protonix Iv) 40 mg IVPUSH DAILY [facility] Last Admin: 07/18/18 09:34 Dose: 40 mg Polyethylene Glycol (Miralax (For Daily Use) -) 17 gm PO BID [facility] Last Admin: 07/18/18 09:24 Dose: Not Given Rivaroxaban (Xarelto -) 20 mg PO DAILY@1800 [facility] Last Admin: 07/17/18 17:41 Dose: Not Given Senna (Senna Oral Solution -) 8.8 mg PO HS [facility] Last Admin: 07/17/18 21:30 Dose: 8.8 mg IMAGING: -CXR (07/10): The prior study of 06/09/2018, again is a scoliosis with convexity to the right, weak inspiration, multi lead pacemaker, distended bowel in the upper abdomen, previous right shoulder surgery and there are increased left hemithorax markings compatible with some atelectasis and/or infiltrate. Follow- up recommended. -CXR (07/11): Since the prior study of 07/10/2018, there appears to be major consolidation in the left hemithorax with some sparing at the left base. There is a prominent mediastinum with pacemaker and distended bowel in the abdomen. The right lung is clear. There is a scoliosis with convexity to the right. There are degenerative spine and shoulder changes. There are left shoulder calcifications. A follow-up study is suggested with deep inspiration to clarify the left hemithorax changes. The sparing of the left base is unusual and one must make sure this is not a subtle pneumothorax. Again follow-up imaging is suggested -CXR (07/11): Since the prior study of 07/11/2018 at 0704 hours, the left hemithorax is slightly better aerated with still some infiltrate/atelectasis and no sign of a gross pneumothorax. The remainder the study is unchanged -CXR (07/11): Since 1003 hours, new right jugular line has been inserted and the tip is in the right atrium. The remainder the study is unchanged. There is no sign of a pneumothorax. -CXR (07/12): A single AP view of the chest reveals motion artifact, weak inspiration, chin artifact, right jugular line with tip in junction of SVC and right atrium, left-sided double lead pacemaker, sclerotic knob, previous right humeral fracture stabilization with hardware and some congestive changes with atelectasis or infiltrate on the left. There is bowel in the right upper quadrant. Since the prior exam of 07/11/2018, there is no significant change. -CXR (07/12): An AP chest reveals an endotracheal tube, right jugular line and pacemaker. There is a large heart, sclerotic unfolded aorta and congestive changes with bilateral effusions with left base infiltrate or atelectasis. The pulmonary and pleural changes have increased and the endotracheal tube is new since 07/12/2018. An OG tube is not easily delineated in this study. -CXR (07/13): No significant change -CXR (07/14): Since 07/13/2018, are progressive bilateral pulmonary and pleural changes. The endotracheal tube, right jugular line, pacemaker and previous right humeral stabilization with hardware is again noted. -CXR (07/15): Improvement. Residual fluid and atelectasis left base. -CXR (07/17): Slight improvement since 07/15/2018. -CXR (07/18): ET tube removed. Progressive pulmonary and pleural findings. -Liver US: Right pleural effusion and trace ascites. Thick walled gallbladder with biliary sludge. -DUPLEX US: No evidence of deep venous thrombosis. -CT Head without contrast: No evidence of acute intracranial pathology. -EKG: Ventricular-paced rhythm, VR 60, QTc 614 -ECHO: Technically limited, LV Systolic function is moderately reduced, LV Is not well visualized, RA and LA mildly dilated, Mild to Mod TR, Mild MR, RV systolic pressure normal, Septal motion is consistent with conduction abnormality, Regional wall motion abnormalities cannot be excluded ASSESSMENT/PLAN: 83 y/o M with PMHx of CHF, COPD, HTN, HLD, CAD (s/p stenting x7 and pacemaker), Atrial Fibrillation, DM, chronic venous insufficiency, BPH was BIBEMS from [facility] for AMS and was admitted to the ICU for severe sepsis due to Cellulitus. #Septic Shock -Likely due B/L lower extremity cellulitis, Wound cultures noted above -Lactic acidosis resolved -Intubated (07/12), Extubated (07/17), Can resume Bipap HS and PRN; Saturating > 92% on Nasal canula -Central Line D/C'ed (07/11-07/18) -Maintain MAP >65 -Continue Zosyn (Started on 07/10), Vanco (started on 07/12); Trough pending this evening -Blood, urine culture noted above -Hold home Anti-HTN meds -D/C'ed Hydrocortisone -Chest PT -Contact isolation precautions -ID (Dr. Thomas), Vascular surgery (Dr. Estrada), Cardiology (Dr. Peterson), Podiatry ( Dr. Greene) consulted, Appreciate recs #Dysphagia -Speech and swallow consulted, Appreciate Rec's. -Trial Magic cup today #Coffee ground gastric aspirate -Likely due to acute gastritis -Hgb Reached 6.5, Given 1 unit pRBCs (07/13) -FOBT Positive -GI Consulted, Appreciate Rec's, Protonix 40mg IVPB daily -Conservative management without endoscopic intervention #Transaminitis -LFTs trending down; Continue to trend -Liver US noted above -Hepatitis panel #Hyperkalemia -Resolved; Continue to monitor #Elevated TSH -Likely due to Severe Sepsis; Consider Euthyroid Sick Syndrome, Less likely Myxedema coma -Endocrinology (Dr. Duron) Consulted, Appreciate Rec's -TSH Trending down; T3, T4 noted; Cortisol, ACTH pending -Synthroid dose increased to 50mcg Daily -Repeat labs after sepsis clears #AFib -Xarelto -Home dose Beta humberto held in the setting of Hypotension #DM -ISS, BGMs ACTID -Start Levemir 15u AM -A1c 6.8% -Hold Oral hypoglycemics #FEN -PO fluids -Monitor for Hyperkalemia -Trial Magic cup today #PPx -DVT: Xarelto Dispo: Transfer to Med-Surg CODE STATUS: DNR Visit type - Emergency Visit Emergency Visit: Yes ED Registration Date: 07/10/18 Care time: The patient presented to the Emergency Department on the above date and was hospitalized for further evaluation of their emergent condition. - New Patient This patient is new to me today: No - Critical Care Critical Care patient: No - Discharge Referral Referred to [facility] Med P.C.: No
[2018-07-18] MEDS: VANCOMYCIN 1,250 MG in DEXTROSE 5%-WATER - 250 ML IVPB SCH (17:00)
--- NOTE | 2018-07-18 17:19 | PN ---
Teaching Attending Note Name of Resident: Gwen Richardson ATTENDING PHYSICIAN STATEMENT I saw and evaluated the patient. I reviewed the resident's note and discussed the case with the resident. I agree with the resident's findings and plan as documented. SUBJECTIVE: Patient is comfortable with no acute distress. in ICU ,off the VM today on NC, answers to questions. OBJECTIVE: Vital Signs Temperature 97.1 F L 07/18/18 14:00 Pulse Rate 60 07/18/18 14:00 Respiratory Rate 14 07/18/18 14:00 Blood Pressure 132/63 07/18/18 14:00 O2 Sat by Pulse Oximetry (%) 97 07/18/18 12:17 GENERAL: The patient is intubated and sedated. HEAD: Normal with no signs of trauma. NECK: Trachea midline, full range of motion, supple. LUNGS: positive for scattered rhonchi bilaterally.on 50% VM HEART: Regular rate and rhythm, S1, S2 without murmur, rub or gallop. ABDOMEN: Soft, nontender, nondistended, normoactive bowel sounds. EXTREMITIES: 2+ pulses, warm, well-perfused, positive for swelling of Upper extremities. open wounds of lower extremities stage II ,covered with Silvadene cream. SKIN: Warm, dry, normal turgor, stage 1 sacral ulcer CBCD WBC 12.2 K/mm3 (4.0-10.0) H 07/18/18 05:00 RBC 2.65 M/mm3 (4.00-5.60) L 07/18/18 05:00 Hgb 8.7 GM/dL (11.7-16.9) L 07/18/18 05:00 Hct 27.0 % (35.4-49) L 07/18/18 05:00 MCV 102.0 fl (80-96) H 07/18/18 05:00 MCHC 32.4 g/dl (32.0-35.9) 07/18/18 05:00 RDW 18.5 % (11.9-15.9) H 07/18/18 05:00 Plt Count 236 K/MM3 (134-434) 07/18/18 05:00 MPV 8.9 fl (7.5-11.1) 07/18/18 05:00 CMP Sodium 145 mmol/L (136-145) 07/18/18 05:00 Potassium 4.6 mmol/L (3.5-5.1) 07/18/18 05:00 Chloride 114 mmol/L (98-107) H 07/18/18 05:00 Carbon Dioxide 29 mmol/L (21-32) 07/18/18 05:00 Anion Gap 2 MMOL/L (8-16) L 07/18/18 05:00 BUN 23 mg/dL (7-18) H 07/18/18 05:00 Creatinine 0.7 mg/dL (0.55-1.3) 07/18/18 05:00 Creat Clearance w eGFR > 60 (>60) 07/18/18 05:00 Random Glucose 73 mg/dL (74-106) L 07/18/18 05:00 Calcium 8.1 mg/dL (8.5-10.1) L 07/18/18 05:00 Total Bilirubin 0.7 mg/dL (0.2-1) 07/16/18 06:00 AST 106 U/L (15-37) H 07/16/18 06:00 ALT 149 U/L (13-61) H 07/16/18 06:00 Alkaline Phosphatase 174 U/L (45-117) H 07/16/18 06:00 Total Protein 5.1 g/dl (6.4-8.2) L 07/16/18 06:00 Albumin 2.0 g/dl (3.4-5.0) L 07/16/18 06:00 CARDIAC ENZYMES Creatine Kinase 179 IU/L (26-308) 07/10/18 16:00 Troponin I < 0.02 ng/ml (0.00-0.05) 07/10/18 16:00 Current Medications Generic Name Dose Route Start Last Admin Trade Name Freq PRN Reason Stop Dose Admin Al Hydroxide/Mg Hydroxide 30 ml 07/10/18 19:52 Mylanta Oral Suspension - PO Q6H PRN INDIGESTION Albuterol/Ipratropium 1 amp 07/10/18 20:15 07/18/18 16:10 Duoneb - NEB 1 amp RQID [facility] Administration Carvedilol 3.125 mg 07/17/18 10:30 07/18/18 09:24 Coreg - NGT Not Given BID [facility] Chlorhexidine Gluconate 1 applic 07/10/18 22:00 07/17/18 21:30 Hibiclens For Decolonization - TP 1 applic HS [facility] Administration Chlorhexidine Gluconate 15 ml 07/13/18 22:00 07/18/18 09:34 Peridex - MM Not Given BID [facility] Ferrous Sulfate 325 mg 07/11/18 10:00 07/18/18 09:24 Feosol - PO Not Given DAILY [facility] Piperacillin Sod/Tazobactam 50 mls @ 100 mls/hr 07/11/18 02:00 07/18/18 09:34 Sod 3.375 gm/ Dextrose IVPB 100 mls/hr Q8H-IV [facility] Administration Protocol Vancomycin HCl 1,250 mg/ 250 mls @ 166.667 mls/hr 07/12/18 15:00 07/17/18 15: 23 Dextrose IVPB 166.667 mls/hr Q24H [facility] Administration Protocol Insulin Aspart 1 vial 07/16/18 12:00 07/18/18 13:34 Novolog Vial Sliding Scale - SQ Not Given Q6HPO [facility] Protocol Insulin Detemir 15 units 07/17/18 07:00 07/18/18 06:49 Levemir Vial SQ Not Given AM [facility] Levothyroxine Sodium 50 mcg 07/17/18 07:00 07/17/18 06:31 Synthroid - PO 50 mcg DAILY@0700 [facility] Administration Pantoprazole Sodium 40 mg 07/15/18 10:00 07/18/18 09:34 Protonix Iv IVPUSH 40 mg DAILY [facility] Administration Polyethylene Glycol 17 gm 07/10/18 22:00 07/18/18 09:24 Miralax (For Daily Use) - PO Not Given BID [facility] Rivaroxaban 20 mg 07/15/18 18:00 07/17/18 17:41 Xarelto - PO Not Given DAILY@1800 [facility] Senna 8.8 mg 07/15/18 22:00 07/17/18 21:30 Senna Oral Solution - PO 8.8 mg HS [facility] Administration Home Medications Medication Instructions Recorded Albuterol 2.5/Ipratropium 0.5 1 neb IH QID 07/10/18 [Duoneb -] Atorvastatin Ca [Lipitor] 40 mg PO HS 07/10/18 Carvedilol [Coreg -] 6.25 mg PO BID 07/10/18 Docusate Sodium [Colace] 200 mg PO HS 07/10/18 Doxazosin Mesylate [Cardura Xl] 8 mg PO HS 07/10/18 Ferrous Sulfate [Feosol] 325 mg PO DAILY 07/10/18 Furosemide [Lasix -] 40 mg PO DAILY 07/10/18 Insulin Aspart [Novolog] 100 unit SQ ACHS 07/10/18 Insulin Detemir [Levemir Flextouch] 10 unit SQ HS 07/10/18 Losartan Potassium [Cozaar -] 50 mg PO DAILY 07/10/18 Mag Hydrox/Al Hydrox/Simeth 30 ml PO Q6H PRN 07/10/18 [Mylanta *Suspension*] Polyethylene Glycol 3350 [Miralax 17 gm PO BID 07/10/18 (For Daily Use) -] Rivaroxaban [Xarelto -] 20 mg PO DAILY 07/10/18 Sennosides [Senna] 17.2 mg PO HS 07/10/18 Silver Sulfadiazine 1% Top Cr 1 applic TP DAILY 07/10/18 [Silvadene -] clonazePAM [Klonopin -] 0.5 mg PO BID 07/10/18 Microbiology 07/11/18 03:30 Leg - Right Lower Gram Stain - Final 07/11/18 03:30 Leg - Right Lower Wound Culture - Preliminary Pseudomonas Aeruginosa Klebsiella Oxytoca Mr S Aureus Enterococcus Faecalis 07/10/18 11:15 Blood - Peripheral Venous Blood Culture - Final NO GROWTH AFTER 5 DAYS INCUBATION 07/10/18 11:00 Blood - Peripheral Venous Blood Culture - Final NO GROWTH AFTER 5 DAYS INCUBATION 07/10/18 12:20 Urine - Urine Clean Catch Urine Culture - Final Staphylococcus Warneri ASSESSMENT AND PLAN: Patient is a 83 y/o man with h/o CAD, s/p stents, permanent A fib, Systolic heart failure, HTN, HLP, DM , CKD , Anemia, COPD,recent admission for acute CHF exacerbation who was sent from [place] for LE pain and was found to have hypothermia and hypotension. # S/p extubation 07/17/2018 due to having acute hypoxic, hypercapnic respiratory failure. in ICU continue to monitor, on SoluCortef stress dose. # S/P Septic shock: off NE drip ; multifactorial due to LE cellulites Cont. Zosyn, Vancomycin . # Open wounds of lower extremities: Continue Silvadene cream. # UTI due to Staphylococcus Warneri sensitive to Vancomycin # RLE open wounds, culture positive for Pseudomonas Aeruginosa; Klebsiella Oxytoca; Mr S Aureus; Enterococcus Faecalis, on Vanco and Zosyn continue #Abn TFT, likely due to sick euthyroid syndrome, repeat the level post recovery # H/o A fib: On Xarelto continue s/p extubation , On coreg continue. # H/o CHF: not in acute decompensated CHF now, hold lasix. patient is in ICU , DVt Px: SCDs. patient is DNR critical care time of 35min.
[2018-07-18] MEDS: RIVAROXABAN 20 MG TABLET PO SCH (22:06)
[2018-07-18] MEDS: CHLORHEXIDINE GLUCONATE 4% CLEANSER FOR DECOLONIZATION TP SCH (22:10)
[2018-07-18] MEDS: SENNOSIDES 8.8 MG/5 ML BULK BOTTLE PO SCH (22:11)
[2018-07-19] MEDS: INSULIN SLIDING SCALE (NOVOLOG) 1 VIAL SQ SCH ×5 (00:02→23:22)
[2018-07-19] MEDS ORDERED: PIPERACILLIN/TAZOBACTAM 3.375 GM VIAL IVPB ONE ×3 (00:10→16:30)
[2018-07-19] MEDS ORDERED: DEXTROSE 5%-WATER - 50 ML IVPB ONE ×3 (00:10→16:30)
[2018-07-19] MEDS: PIPERACILLIN/TAZOB 3.375 GM 3.375 GM in DEXTROSE 5%-WATER - 50 ML IVPB SCH ×3 (01:16→18:04)
[2018-07-19 06:16] LABS: HEMATOCRIT 28.6 % (35.4-49); HEMOGLOBIN 9.4 GM/dL (11.7-16.9); MCH 33.8 pg (25.7-33.7); MEAN CELL VOLUME 102.4 fl (80-96); MEAN PLT VOLUME 8.8 fl (7.5-11.1); PLATELET COUNT 275 K/MM3 (134-434); RBC 2.79 M/mm3 (4.00-5.60); RDW 18.5 % (11.9-15.9); WHITE BLOOD COUNT 8.9 K/mm3 (4.0-10.0)
[2018-07-19] MEDS ORDERED: LEVOTHYROXINE SODIUM 100 MCG VIAL IVPUSH ONE (06:34)
[2018-07-19] MEDS: INSULIN (LEVEMIR) 100 UNITS/ML UNITS SQ SCH (06:36)
[2018-07-19] MEDS: LEVOTHYROXINE NA 50 MCG TABLET (FP) PO SCH (07:02)
[2018-07-19 07:55] LABS: ALBUMIN 2.2 g/dl (3.4-5.0); ALK PHOS 143 U/L (45-117); ANION GAP 6 MMOL/L (8-16); BILIRUBIN,TOTAL 0.9 mg/dL (0.2-1); BLOOD UREA NITROGEN 22 mg/dL (7-18); CALCIUM 8.5 mg/dL (8.5-10.1); CHLORIDE 108 mmol/L (98-107); CO2 31 mmol/L (21-32); CREATININE 0.8 mg/dL (0.55-1.3); GLUCOSE,RANDOM 190 mg/dL (74-106); MAGNESIUM 1.9 mg/dL (1.8-2.4); PHOSPHOROUS 3.2 mg/dL (2.5-4.9); POTASSIUM 4.6 mmol/L (3.5-5.1); SGOT/AST 38 U/L (15-37); SGPT/ALT 76 U/L (13-61); SODIUM 145 mmol/L (136-145); TOT PROT 5.7 g/dl (6.4-8.2)
[2018-07-19] MEDS: ALBUTEROL SO4 2.5/IPRATROPIUM 0.5 INH SOL 3 ML VIAL.NEB. NEB SCH ×4 (08:10→21:37)
[2018-07-19] MEDS ORDERED: MAGNESIUM OXIDE 400 MG TABLET (FP) PO ONE (09:00)
[2018-07-19] MEDS ORDERED: LOSARTAN POTASSIUM 25 MG TABLET PO SCH (10:00)
[2018-07-19] MEDS: CARVEDILOL 3.125 MG TABLET (FP) NGT SCH ×2 (10:17→21:30)
[2018-07-19] MEDS: FERROUS SO4 325 MG TABLET (FP) PO SCH (10:21)
[2018-07-19] MEDS: CHLORHEXIDINE GLUCONATE 0.12% 15ML CUP MM SCH (10:22)
[2018-07-19] MEDS: PANTOPRAZOLE SODIUM 40 MG VIAL IVPUSH SCH (10:22)
[2018-07-19] MEDS: POLYETHYLENE GLYCOL 3350 119 GM BTL PO SCH ×2 (10:22→21:30)
[2018-07-19] MEDS ORDERED: PT OWN MED DRAWER 7, Y5N ONE (10:23)
--- NOTE | 2018-07-19 11:03 | PN ---
Progress Note, Physician History of Present Illness: Extubated on NC, enteral feeds, remains off pressors. - Current Medication List Current Medications: Active Medications Al Hydroxide/Mg Hydroxide (Mylanta Oral Suspension -) 30 ml PO Q6H PRN PRN Reason: INDIGESTION Albuterol/Ipratropium (Duoneb -) 1 amp NEB RQID [facility] Last Admin: 07/19/18 08:10 Dose: 1 amp Carvedilol (Coreg -) 3.125 mg NGT BID [facility] Last Admin: 07/19/18 10:17 Dose: 3.125 mg Chlorhexidine Gluconate (Hibiclens For Decolonization -) 1 applic TP HS [facility] Last Admin: 07/18/18 22:10 Dose: 1 applic Chlorhexidine Gluconate (Peridex -) 15 ml MM BID [facility] Last Admin: 07/19/18 10:22 Dose: 15 ml Ferrous Sulfate (Feosol -) 325 mg PO DAILY [facility] Last Admin: 07/19/18 10:21 Dose: 325 mg Piperacillin Sod/Tazobactam (Sod 3.375 gm/ Dextrose) 50 mls @ 100 mls/hr IVPB Q8H-IV [facility]; Protocol Last Admin: 07/19/18 10:22 Dose: 100 mls/hr Vancomycin HCl 1,250 mg/ (Dextrose) 250 mls @ 166.667 mls/hr IVPB Q24H [facility]; Protocol Last Admin: 07/18/18 17:00 Dose: 166.667 mls/hr Insulin Aspart (Novolog Vial Sliding Scale -) 1 vial SQ Q6HPO [facility]; Protocol Last Admin: 07/19/18 06:35 Dose: 6 units Insulin Detemir (Levemir Vial) 15 units SQ AM [facility] Last Admin: 07/19/18 06:36 Dose: 15 units Levothyroxine Sodium (Synthroid -) 50 mcg PO DAILY@0700 [facility] Last Admin: 07/19/18 07:02 Dose: Not Given Losartan Potassium (Cozaar -) 25 mg PO DAILY [facility] Last Admin: 07/19/18 10:21 Dose: 25 mg Pantoprazole Sodium (Protonix Iv) 40 mg IVPUSH DAILY [facility] Last Admin: 07/19/18 10:22 Dose: 40 mg Polyethylene Glycol (Miralax (For Daily Use) -) 17 gm PO BID [facility] Last Admin: 07/19/18 10:22 Dose: Not Given Rivaroxaban (Xarelto -) 20 mg PO DAILY@1800 [facility] Last Admin: 07/18/18 22:06 Dose: Not Given Senna (Senna Oral Solution -) 8.8 mg PO HS [facility] Last Admin: 07/18/18 22:11 Dose: Not Given - Objective Vital Signs: Vital Signs Temperature 98.1 F 07/19/18 10:00 Pulse Rate 67 07/19/18 10:00 Respiratory Rate 18 07/19/18 10:00 Blood Pressure 117/63 07/19/18 10:00 O2 Sat by Pulse Oximetry (%) 99 07/19/18 08:00 Constitutional: Yes: No Distress, Calm Neck: Yes: Supple Cardiovascular: Yes: Regular Rate and Rhythm Respiratory: Yes: Regular, Diminished, On Nasal O2 Gastrointestinal: Yes: Normal Bowel Sounds, Soft Edema: No Labs: CBC, BMP 07/19/18 05:30 07/19/18 05:30 INR, PTT INR 1.28 (0.83-1.09) H 07/18/18 05:00 Fibrinogen 423.0 mg/dL (238-498) 07/12/18 05:30 - ....Imaging Chest X-ray: Report Reviewed (Resolved CHF, trace effusions) EKG: Report Reviewed (Tele: afib, v-paced) Problem List - Problems (1) Abnormal liver function tests Code(s): R94.5 - ABNORMAL RESULTS OF LIVER FUNCTION STUDIES (2) CAD (coronary artery disease) Code(s): I25.10 - ATHSCL HEART DISEASE OF [place] CORONARY ARTERY W/O ANG PCTRS Qualifiers: Coronary Disease-Associated Artery/Lesion type: [place] artery [place] vs. transplanted heart: [place] heart Associated angina: without angina Qualified Code(s): I25.10 - Atherosclerotic heart disease of [place] coronary artery without angina pectoris (3) CHF (congestive heart failure) Code(s): I50.9 - HEART FAILURE, UNSPECIFIED Qualifiers: Heart failure type: combined systolic and diastolic Heart failure chronicity: chronic Qualified Code(s): I50.42 - Chronic combined systolic ( congestive) and diastolic (congestive) heart failure (4) Hypercholesterolemia Code(s): E78.00 - PURE HYPERCHOLESTEROLEMIA, UNSPECIFIED (5) Hypothyroid Code(s): E03.9 - HYPOTHYROIDISM, UNSPECIFIED Qualifiers: Hypothyroidism type: unspecified Qualified Code(s): E03.9 - Hypothyroidism , unspecified (6) Presence of permanent cardiac pacemaker Code(s): Z95.0 - PRESENCE OF CARDIAC PACEMAKER (7) Septic shock Code(s): A41.9 - SEPSIS, UNSPECIFIED ORGANISM; R65.21 - SEVERE SEPSIS WITH SEPTIC SHOCK (8) Sick sinus syndrome Code(s): I49.5 - SICK SINUS SYNDROME (9) History of percutaneous coronary intervention Code(s): Z98.890 - OTHER SPECIFIED POSTPROCEDURAL STATES (10) IDDM (insulin dependent diabetes mellitus) Code(s): E11.9 - TYPE 2 DIABETES MELLITUS WITHOUT COMPLICATIONS; Z79.4 - CARE HOME (CURRENT) USE OF INSULIN (11) Sleep apnea Code(s): G47.30 - SLEEP APNEA, UNSPECIFIED Qualifiers: Sleep apnea type: unspecified type Qualified Code(s): G47.30 - Sleep apnea , unspecified (12) Atrial fibrillation with controlled ventricular rate Code(s): I48.91 - UNSPECIFIED ATRIAL FIBRILLATION (13) Chronic anticoagulation Code(s): Z79.01 - ENVIRONMENTAL SERVICES SUPERVISOR (CURRENT) USE OF ANTICOAGULANTS Assessment/Plan 05/02/2018 Echocardiography revealed systolic LV dysfunction with LVEF 40-45%, moderate (mean gradient of 27.7 and peak gradient 46 mmHg, LYNETTE of 0.78 cm2), mild MR, mild to moderate TR 1. Acute Hypoxic and Hypercapneic Respiratory failure post mechanical ventilation 2. Post septic shock 3. Acute on chronic LV failure class II NYHA classification LV failure referable to systolic/diastolic heart failure resolving 4. CAD s/p PCI/stent, angina pectoris 5. Persistent AF [id number] score of 6 on NOAC 6. AV block s/p PPM 7. HTN 8. Hypercholesterolemia 9. DM 10. COPD 11. CKD 12. Anemia 13. Hypothyroidism 14. BPH s/p TURP 15. Severe OSAS (RDI 108 per hour / desaturation to 72%) 16. Shock liver resolving PLAN: 1. Antibiotic coverage, IV steroid taper with GI protection, BD, taper Fio2 to keep Spo2 >90% 2. Xarelto 20 qd, carvedilol 3.125 bid, losartan 25 qd with uptitration as hemodynamics tolerate. Lipitor held pending resolution of LFT abnl 3. Diuresis as needed to keep even with monitor renal function and electrolytes
--- NOTE | 2018-07-19 12:35 | PN ---
Teaching Attending Note Name of Resident: Capri Erickson ATTENDING PHYSICIAN STATEMENT I saw and evaluated the patient. I reviewed the resident's note and discussed the case with the resident. I agree with the resident's findings and plan as documented. SUBJECTIVE: Pt seen and examined in the ICU. Remains extubated, more alert and awake. OBJECTIVE: Vital Signs Period Temp Pulse Resp BP Sys/Kuo Pulse Ox Last 24 Hr 97.1 F-98.2 F 60-70 - 97-136/55-94 98-100 Intake & Output 07/16/18 07/17/18 07/18/18 07/19/18 23:59 23:59 23:59 23:59 Intake Total 1542 982 200 100 Output Total 950 1700 3900 600 Balance 592 -743 -3700 -500 Weight 75.296 kg 74.984 kg 74.162 kg 69.57 kg Gen: less tachypneic, more alert, awake Heart: RRR Lung: decreased breath sounds at the bases Abd: soft, nontender Ext: + edema CBC, BMP 07/19/18 05:30 07/19/18 05:30 Active Medications Al Hydroxide/Mg Hydroxide (Mylanta Oral Suspension -) 30 ml PO Q6H PRN PRN Reason: INDIGESTION Albuterol/Ipratropium (Duoneb -) 1 amp NEB RQID [facility] Last Admin: 07/19/18 11:28 Dose: 1 amp Carvedilol (Coreg -) 3.125 mg NGT BID [facility] Last Admin: 07/19/18 10:17 Dose: 3.125 mg Chlorhexidine Gluconate (Hibiclens For Decolonization -) 1 applic TP HS [facility] Last Admin: 07/18/18 22:10 Dose: 1 applic Chlorhexidine Gluconate (Peridex -) 15 ml MM BID [facility] Last Admin: 07/19/18 10:22 Dose: 15 ml Ferrous Sulfate (Feosol -) 325 mg PO DAILY [facility] Last Admin: 07/19/18 10:21 Dose: 325 mg Piperacillin Sod/Tazobactam (Sod 3.375 gm/ Dextrose) 50 mls @ 100 mls/hr IVPB Q8H-IV [facility]; Protocol Last Admin: 07/19/18 10:22 Dose: 100 mls/hr Vancomycin HCl 1,250 mg/ (Dextrose) 250 mls @ 166.667 mls/hr IVPB Q24H [facility]; Protocol Last Admin: 07/18/18 17:00 Dose: 166.667 mls/hr Insulin Aspart (Novolog Vial Sliding Scale -) 1 vial SQ Q6HPO [facility]; Protocol Last Admin: 07/19/18 11:14 Dose: 4 units Insulin Detemir (Levemir Vial) 15 units SQ AM [facility] Last Admin: 07/19/18 06:36 Dose: 15 units Levothyroxine Sodium (Synthroid -) 50 mcg PO DAILY@0700 [facility] Last Admin: 07/19/18 07:02 Dose: Not Given Losartan Potassium (Cozaar -) 25 mg PO DAILY [facility] Last Admin: 07/19/18 10:21 Dose: 25 mg Pantoprazole Sodium (Protonix Iv) 40 mg IVPUSH DAILY [facility] Last Admin: 07/19/18 10:22 Dose: 40 mg Polyethylene Glycol (Miralax (For Daily Use) -) 17 gm PO BID [facility] Last Admin: 07/19/18 10:22 Dose: Not Given Rivaroxaban (Xarelto -) 20 mg PO DAILY@1800 [facility] Last Admin: 07/18/18 22:06 Dose: Not Given Senna (Senna Oral Solution -) 8.8 mg PO HS [facility] Last Admin: 07/18/18 22:11 Dose: Not Given ASSESSMENT AND PLAN: Acute Hypoxic and Hypercapneic Respiratory Failure improving Pneumonia Cellulitis Staph Bacteremia Septic Shock resolving Lactic Acidosis resolved Acute Kidney Injury improving Elevated LFTs likely Ischemic Injury LV Systolic Dysfunction Atrial Fibrillation CAD HTN DM Hyperlipidemia - continue antibiotics - off pressors, maintain MAP >65 - monitor urine output, creatinine - taper off steroids - O2 to keep Spo2 >90% - monitor lytes - continue anticoagulation - DVT/GI prophylaxis - can monitor on floor
--- NOTE | 2018-07-19 13:33 | PN ---
Progress Note, Physician History of Present Illness: patient looking much better little confused much more awake and alert comfortable - Current Medication List Current Medications: Active Medications Al Hydroxide/Mg Hydroxide (Mylanta Oral Suspension -) 30 ml PO Q6H PRN PRN Reason: INDIGESTION Albuterol/Ipratropium (Duoneb -) 1 amp NEB RQID [facility] Last Admin: 07/19/18 11:28 Dose: 1 amp Carvedilol (Coreg -) 3.125 mg NGT BID [facility] Last Admin: 07/19/18 10:17 Dose: 3.125 mg Chlorhexidine Gluconate (Hibiclens For Decolonization -) 1 applic TP HS [facility] Last Admin: 07/18/18 22:10 Dose: 1 applic Chlorhexidine Gluconate (Peridex -) 15 ml MM BID [facility] Last Admin: 07/19/18 10:22 Dose: 15 ml Ferrous Sulfate (Feosol -) 325 mg PO DAILY [facility] Last Admin: 07/19/18 10:21 Dose: 325 mg Piperacillin Sod/Tazobactam (Sod 3.375 gm/ Dextrose) 50 mls @ 100 mls/hr IVPB Q8H-IV [facility]; Protocol Last Admin: 07/19/18 10:22 Dose: 100 mls/hr Vancomycin HCl 1,250 mg/ (Dextrose) 250 mls @ 166.667 mls/hr IVPB Q24H [facility]; Protocol Last Admin: 07/18/18 17:00 Dose: 166.667 mls/hr Insulin Aspart (Novolog Vial Sliding Scale -) 1 vial SQ Q6HPO [facility]; Protocol Last Admin: 07/19/18 11:14 Dose: 4 units Insulin Detemir (Levemir Vial) 15 units SQ AM [facility] Last Admin: 07/19/18 06:36 Dose: 15 units Levothyroxine Sodium (Synthroid -) 50 mcg PO DAILY@0700 [facility] Last Admin: 07/19/18 07:02 Dose: Not Given Losartan Potassium (Cozaar -) 25 mg PO DAILY [facility] Last Admin: 07/19/18 10:21 Dose: 25 mg Pantoprazole Sodium (Protonix Iv) 40 mg IVPUSH DAILY [facility] Last Admin: 07/19/18 10:22 Dose: 40 mg Polyethylene Glycol (Miralax (For Daily Use) -) 17 gm PO BID [facility] Last Admin: 07/19/18 10:22 Dose: Not Given Rivaroxaban (Xarelto -) 20 mg PO DAILY@1800 [facility] Last Admin: 07/18/18 22:06 Dose: Not Given Senna (Senna Oral Solution -) 8.8 mg PO HS [facility] Last Admin: 07/18/18 22:11 Dose: Not Given - Objective Vital Signs: Vital Signs Temperature 98.1 F 07/19/18 10:00 Pulse Rate 62 07/19/18 12:00 Respiratory Rate 17 07/19/18 12:00 Blood Pressure 97/56 L 07/19/18 12:00 O2 Sat by Pulse Oximetry (%) 99 07/19/18 08:00 Constitutional: Yes: No Distress, Calm Cardiovascular: Yes: Regular Rate and Rhythm Respiratory: Yes: Regular, On Nasal O2, Poor Air Entry Gastrointestinal: Yes: Normal Bowel Sounds, Soft Musculoskeletal: Yes: WNL Extremities: Yes: Other (wound healing) Integumentary: Yes: Erythema (resolving) Wound/Incision: Yes: Dressing Dry and Intact Neurological: Yes: Alert, Confusion, Other Psychiatric: Yes: Alert Labs: CBC, BMP 07/19/18 05:30 07/19/18 05:30 INR, PTT INR 1.28 (0.83-1.09) H 07/18/18 05:00 Fibrinogen 423.0 mg/dL (238-498) 07/12/18 05:30 Assessment/Plan septic shock Systolic / Diastolic CHF COPD HTN HLD CAD PPM Atrial Fibrillation DM Chronic venous insufficiency BPH s/p TURP CKD Anemia plan continue abx patient stable wound care rest as per icu nutrition check vanco level patient improving cc 40 min
--- NOTE | 2018-07-19 13:42 | PN ---
Teaching Attending Note Name of Resident: Gwen Richardson ATTENDING PHYSICIAN STATEMENT I saw and evaluated the patient. I reviewed the resident's note and discussed the case with the resident. I agree with the resident's findings and plan as documented. SUBJECTIVE: not cooperative . denies pain, or SOB OBJECTIVE: awake, falls asleep, mumbles. MMM CV: RRR, 3/6 SM RUSB and LUSB, JVD+. Lungs: CTAB, decreased breath sounds at bases Abd: soft, NT, ND , NL BS. Ext: improved edema on LE compared to last evaluation. leg wounds with cream . ASSESSMENT AND PLAN: 83 y/o man with h/o CAD, s/p stents, permanent A fib, Systolic heart failure, HTN, HLP, DM , CKD , Anemia, COPD,recent admission for acute CHF exacerbation who was sent from [place] for LE pain and was found to have septic shock form LE cellulites, and went into hypoxic resp failure 1- Hypoxic resp failure, s/p extubation 2- s/p septic shock 3- acute systolic and diastolic heart failure 4- LE cellulites 5- Transaminitis 6- sick euthyroid syndrome 7- DM . plan ; - sat O2 is Nl on 3 L o fO2. hold off diuresis today - start low dose losartan 25 mg . - monitor BP . - cont synthroid - cont BB - hypoglycemia resolved. cont po intake and insulin dispo : transfer to [facility]
--- NOTE | 2018-07-19 14:15 | PN ---
Physical Exam: SUBJECTIVE: Patient seen and examined at bedside. No acute events overnight. On bipap overnight. Patient more awake and alert today, mental status close to baseline. Patient ate all the magic cups given to him and tolerated it well. OBJECTIVE: Vital Signs Period Temp Pulse Resp BP Sys/Kuo Pulse Ox Last 24 Hr 97.2 F-98.2 F 60-70 16-18 97-136/55-94 98-100 GENERAL: The patient is awake, and alert, on 3L NC HEAD: Normal with no signs of trauma. NECK: Trachea midline, full range of motion, supple. LUNGS: +scattered rhonchi bilaterally. HEART: Regular rate and rhythm, S1, S2 without murmur, rub or gallop. ABDOMEN: Soft, nontender, nondistended, normoactive bowel sounds. UPPER EXTREMITIES: 2+ pulses, warm, well-perfused, no edema. LOWER EXTREMITIES: +circumferential erythema and warmth bilaterally from ankle to mid-baker area with scattered wounds SKIN: Warm, dry, normal turgor Laboratory Results - last 24 hr 07/18/18 07/18/18 07/18/18 15:40 18:17 23:59 WBC RBC Hgb Hct MCV MCH MCHC RDW Plt Count MPV Sodium Potassium Chloride Carbon Dioxide Anion Gap BUN Creatinine Creat Clearance w eGFR POC Glucometer 182.43585 [phone] Random Glucose Calcium Phosphorus Magnesium Total Bilirubin AST ALT Alkaline Phosphatase Total Protein Albumin Vancomycin Pre-Dose 15.3 L 07/19/18 07/19/18 07/19/18 05:30 05:30 06:32 WBC 8.9 RBC 2.79 L Hgb 9.4 L Hct 28.6 L MCV 102.4 H MCH 33.8 H MCHC 33.0 RDW 18.5 H Plt Count 275 MPV 8.8 Sodium 145 Potassium 4.6 Chloride 108 H Carbon Dioxide 31 Anion Gap 6 L BUN 22 H Creatinine 0.8 Creat Clearance w eGFR > 60 POC Glucometer [phone] Random Glucose 190 H Calcium 8.5 Phosphorus 3.2 Magnesium 1.9 Total Bilirubin 0.9 AST 38 H ALT 76 H Alkaline Phosphatase 143 H Total Protein 5.7 L Albumin 2.2 L Vancomycin Pre-Dose 07/19/18 10:55 WBC RBC Hgb Hct MCV MCH MCHC RDW Plt Count MPV Sodium Potassium Chloride Carbon Dioxide Anion Gap BUN Creatinine Creat Clearance w eGFR POC Glucometer [phone] Random Glucose Calcium Phosphorus Magnesium Total Bilirubin AST ALT Alkaline Phosphatase Total Protein Albumin Vancomycin Pre-Dose Active Medications Generic Name Dose Route Start Last Admin Trade Name Ethan PRN Reason Stop Dose Admin Al Hydroxide/Mg Hydroxide 30 ml 07/10/18 19:52 Mylanta Oral Suspension - PO Q6H PRN INDIGESTION Albuterol/Ipratropium 1 amp 07/10/18 20:15 07/19/18 11:28 Duoneb - NEB 1 amp RQID AYDIN Administration Carvedilol 3.125 mg 07/17/18 10:30 07/19/18 10:17 Coreg - NGT 3.125 mg BID AYDIN Administration Chlorhexidine Gluconate 1 applic 07/10/18 22:00 07/18/18 22:10 Hibiclens For Decolonization - TP 1 applic HS AYDIN Administration Chlorhexidine Gluconate 15 ml 07/13/18 22:00 07/19/18 10:22 Peridex - MM 15 ml BID AYDIN Administration Ferrous Sulfate 325 mg 07/11/18 10:00 07/19/18 10:21 Feosol - PO 325 mg DAILY AYDIN Administration Piperacillin Sod/Tazobactam 50 mls @ 100 mls/hr 07/11/18 02:00 07/19/18 10:22 Sod 3.375 gm/ Dextrose IVPB 100 mls/hr Q8H-IV AYDIN Administration Protocol Vancomycin HCl 1,250 mg/ 250 mls @ 166.667 mls/hr 07/12/18 15:00 07/18/18 17: 00 Dextrose IVPB 166.667 mls/hr Q24H AYDIN Administration Protocol Insulin Aspart 1 vial 07/16/18 12:00 07/19/18 11:14 Novolog Vial Sliding Scale - SQ 4 units Q6HPO AYDIN Administration Protocol Insulin Detemir 15 units 07/17/18 07:00 07/19/18 06:36 Levemir Vial SQ 15 units AM AYDIN Administration Levothyroxine Sodium 50 mcg 07/17/18 07:00 07/19/18 07:02 Synthroid - PO Not Given DAILY@0700 AYDIN Losartan Potassium 25 mg 07/19/18 10:00 07/19/18 10:21 Cozaar - PO 25 mg DAILY AYDIN Administration Pantoprazole Sodium 40 mg 07/15/18 10:00 07/19/18 10:22 Protonix Iv IVPUSH 40 mg DAILY [facility] Administration Polyethylene Glycol 17 gm 07/10/18 22:00 07/19/18 10:22 Miralax (For Daily Use) - PO Not Given BID [facility] Rivaroxaban 20 mg 07/15/18 18:00 07/18/18 22:06 Xarelto - PO Not Given DAILY@1800 AYDIN Senna 8.8 mg 07/15/18 22:00 07/18/18 22:11 Senna Oral Solution - PO Not Given HS [facility] ASSESSMENT/PLAN: Patient is an 83 year old male with significant past medical history of sys/ diastolic CHF; COPD; HTN; HLD; CAD (s/p stenting x7 and pacemaker); Atrial Fibrillation; DM; chronic venous insufficiency; BPH s/p TURP; CKD; anemia for B/ L leg pain and abnormal gait was sent from [facility] for evaluation of B/L lower extremity pain. #Infectious Disease 1)Septic shock likely secondary to cellulitis of B/L Lower extremity, improving -Off levophed, maintaining MAP >65 -Discontinued Solu-cortef and Fludrocortisone -ID (Dr. Thomas) consulted. Recommendations appreciated. -Continue Vancomycin 1250mg daily Day 10 and Zosyn 3.375 q8h Day 11 -Wound cultures - Presumptive Pseudomonas, Lactose fermenting GNB, Presumptive MRSA, Group D Strep or Enterococcus -Contact isolation precautions -Dr. Estrada consulted. Recommendations appreciated. -Air mattress recommended. -Ensure off-loading to all bony areas with Allevyn/Optifoam -Clean open wounds with normal saline and apply Silvadene -Continue antibiotics. -Podiatry(Dr. Greene) consulted for avulsed L great toe nail. -Heel pads b/l. Will debride nail left hallux. 2)Lactic acidosis: likely 2/2 sepsis, resolved -Lactic acid 2.8 --> 1.5 #Pulmonology 1)Acute Hypoxic and Hypercapneic respiratory failure: Likely 2/2 Pneumonia and Sepsis -On 3L NC, saturating at 100% -On IV Vanc/Zosyn. -Bipap at bedtime STA and PRN during the day 2)COPD -Duoneb QID 3)Obstructive Sleep Apnea -Bipap 16/10 at night time STA and daytime PRN #Endocrinology 1)Hypothyroidism -TSH elevated 14.8 --> 13.2 -free T4 0.8 -Hypotension, hypothermia, hypoglycemia likely 2/2 sepsis. -Endocrinology (Dr. Duron) consulted. Recommendations appreciated. -Synthroid 50mcg PO daily at 7am -IV antibiotics 2)Diabetes Mellitus -A1c - 6.8 -Levemir 15 units at AM -Insulin sliding scale implemented -[facility] ACHS #Cardiovascular 1)Systolic/Diastolic CHF -BNP 1180. -Echocardiogram done. -Lasix 40mg given once. Lasix PRN for now. -Gentle hydration PRN 2)Prolonged QTc: 614 -Avoid medications causing prolonged QTc. -Repeat EKG: QTc 535 3)CAD (s/p stenting x7 and pacemaker) -Continue Lipitor 40mg PO HS -On Xarelto 20mg daily 4)Hypertension -Started home Losartan 25mg PO daily -Will monitor BP. Maintain MAP >65 5)Hyperlipidemia -Lipitor 40mg PO HS 6)Atrial Fibrillation: rate controlled -On Xarelto 20mg daily #Gastroenterology 1)Transaminitis likely 2/2 sepsis, improved -LFTs trending down -Liver ultrasound done- Right pleural effusion and trace ascites. Thick walled gallbladder with biliary sludge. -Hepatitis panel. -will continue to monitor 2)Coffee ground-containing gastric aspirate likely 2/2 acute gastritis, resolved -GI (Dr. Rodriguez) consulted. Recommendations appreciated. -Likely 2/2 septic shock along with component of stress gastritis -Protonix 40mg IV daily. -Avoid NSAIDs 3)Dysphagia -Speech and swallow evaluation. Recommendations appreciated. -Trial of magic cup, feed slowly, wait for 2 swallows before next 1/2 tsp given. -May be able to tolerate dysphagia puree/honey. Will start today. -Will follow for diet upgrade. #Nephrology 1)CKD -elevated BUN likely 2/2 to dehydration -IVF PRN 2)Hyperkalemia, resolved -will continue to monitor #Hematology 1)Macrocytic anemia: stable -H/H 9.4/28.6 -monitor CBC #FEN -Not on any standing fluids -Routine bmp monitoring -Dysphagia puree/honey. #Prophylaxis 1)DVT - on Xarelto 20mg daily 2)GI - Protonix 40mg IV daily #Disposition -DNR -Palliative care on board. -For transfer to tele Visit type - Emergency Visit Emergency Visit: Yes ED Registration Date: 07/10/18 Care time: The patient presented to the Emergency Department on the above date and was hospitalized for further evaluation of their emergent condition. - New Patient This patient is new to me today: Yes Date on this admission: 07/19/18 - Critical Care Critical Care patient: Yes Total Critical Care Time (in minutes): 40 Critical Care Statement: The care of this patient involved high complexity decision making to prevent further life threatening deterioration of the patient 's condition and/or to evaluate & treat vital organ system(s) failure or risk of failure.
--- NOTE | 2018-07-19 15:25 | PN ---
Progress Note, RFID SPECIALIST - Note Progress Note: 83 yo seen at bedside for follow up evaluation. Chart review and dry pan charger reported that pt consumed magic cup without s/s of aspiration. Diet order for diabetic puree with honey thicken liquids has been ordered for dinner. Recommendations: Continue diet order of pureed with honey thicken liquids as tolerated. Continue magic cup. Observe standard aspiration precautions. RFID SPECIALIST to follow up for diet tolerance and possible upgrade if warranted.
[2018-07-19] MEDS: VANCOMYCIN 1,250 MG in DEXTROSE 5%-WATER - 250 ML IVPB SCH (16:00)
[2018-07-19] MEDS: RIVAROXABAN 20 MG TABLET PO SCH (17:46)
--- NOTE | 2018-07-19 18:34 | PN ---
Physical Exam: SUBJECTIVE: Patient seen and examined this morning at bedside. Patient responsive to verbal commands however slightly confused. Tolerating magic cup. Tolerated magic cup overnight. No acute overnight events as per nursing. OBJECTIVE: Vital Signs Period Temp Pulse Resp BP Sys/Kuo Pulse Ox Last 24 Hr 97.2 F-98.2 F 60-72 15-18 97-136/53-94 98-100 GENERAL: A&Ox3 (Knows name, Hospital setting, and that we are eating turkey soon ) HEAD: NCAT NECK: No JVD LUNGS: Scattered Rhonchi HEART: Regular rate and rhythm, normal S1 and S2, LLSB Murmur ABDOMEN: Soft, nontender, not distended, normoactive bowel sounds BACK: Stage 2 ulcer superior to the gluteal fold without active drainage or surrounding erythema EXTREMITIES: 2+ pulses, No edema. Multiple, Lower extremity wounds without active drainage, Erythema and warmth continue to improve. New eschar over RLE healing wound SKIN: Warm, dry Laboratory Results - last 24 hr 07/18/18 07/18/18 07/19/18 18:17 23:59 05:30 WBC 8.9 RBC 2.79 L Hgb 9.4 L Hct 28.6 L MCV 102.4 H MCH 33.8 H MCHC 33.0 RDW 18.5 H Plt Count 275 MPV 8.8 Sodium Potassium Chloride Carbon Dioxide Anion Gap BUN Creatinine Creat Clearance w eGFR POC Glucometer 182.88593 [phone] Random Glucose Calcium Phosphorus Magnesium Total Bilirubin AST ALT Alkaline Phosphatase Total Protein Albumin 07/19/18 07/19/18 07/19/18 05:30 06:32 10:55 WBC RBC Hgb Hct MCV MCH MCHC RDW Plt Count MPV Sodium 145 Potassium 4.6 Chloride 108 H Carbon Dioxide 31 Anion Gap 6 L BUN 22 H Creatinine 0.8 Creat Clearance w eGFR > 60 POC Glucometer 280.47004 [phone] Random Glucose 190 H Calcium 8.5 Phosphorus 3.2 Magnesium 1.9 Total Bilirubin 0.9 AST 38 H ALT 76 H Alkaline Phosphatase 143 H Total Protein 5.7 L Albumin 2.2 L Microbiology 07/11/18 03:30 Leg - Right Lower Gram Stain - Final 07/11/18 03:30 Leg - Right Lower Wound Culture - Preliminary Pseudomonas Aeruginosa Klebsiella Oxytoca Mr S Aureus Enterococcus Faecalis 07/10/18 11:15 Blood - Peripheral Venous Blood Culture - Final NO GROWTH AFTER 5 DAYS INCUBATION 07/10/18 11:00 Blood - Peripheral Venous Blood Culture - Final NO GROWTH AFTER 5 DAYS INCUBATION 07/10/18 12:20 Urine - Urine Clean Catch Urine Culture - Final Staphylococcus Warneri Active Medications Al Hydroxide/Mg Hydroxide (Mylanta Oral Suspension -) 30 ml PO Q6H PRN PRN Reason: INDIGESTION Albuterol/Ipratropium (Duoneb -) 1 amp NEB RQID [facility] Last Admin: 07/19/18 15:40 Dose: 1 amp Carvedilol (Coreg -) 3.125 mg NGT BID [facility] Last Admin: 07/19/18 10:17 Dose: 3.125 mg Chlorhexidine Gluconate (Hibiclens For Decolonization -) 1 applic TP HS [facility] Last Admin: 07/18/18 22:10 Dose: 1 applic Chlorhexidine Gluconate (Peridex -) 15 ml MM BID [facility] Last Admin: 07/19/18 10:22 Dose: 15 ml Ferrous Sulfate (Feosol -) 325 mg PO DAILY [facility] Last Admin: 07/19/18 10:21 Dose: 325 mg Piperacillin Sod/Tazobactam (Sod 3.375 gm/ Dextrose) 50 mls @ 100 mls/hr IVPB Q8H-IV [facility]; Protocol Last Admin: 07/19/18 10:22 Dose: 100 mls/hr Vancomycin HCl 1,250 mg/ (Dextrose) 250 mls @ 166.667 mls/hr IVPB Q24H AYDIN; Protocol Last Admin: 07/19/18 16:00 Dose: 166.667 mls/hr Insulin Aspart (Novolog Vial Sliding Scale -) 1 vial SQ Q6HPO [facility]; Protocol Last Admin: 07/19/18 11:14 Dose: 4 units Insulin Detemir (Levemir Vial) 15 units SQ AM [facility] Last Admin: 07/19/18 06:36 Dose: 15 units Levothyroxine Sodium (Synthroid -) 50 mcg PO DAILY@0700 [facility] Last Admin: 07/19/18 07:02 Dose: Not Given Losartan Potassium (Cozaar -) 25 mg PO DAILY [facility] Last Admin: 07/19/18 10:21 Dose: 25 mg Pantoprazole Sodium (Protonix Iv) 40 mg IVPUSH DAILY [facility] Last Admin: 07/19/18 10:22 Dose: 40 mg Polyethylene Glycol (Miralax (For Daily Use) -) 17 gm PO BID [facility] Last Admin: 07/19/18 10:22 Dose: Not Given Rivaroxaban (Xarelto -) 20 mg PO DAILY@1800 [facility] Last Admin: 07/19/18 17:46 Dose: 20 mg Senna (Senna Oral Solution -) 8.8 mg PO HS [facility] Last Admin: 07/18/18 22:11 Dose: Not Given IMAGING: -CXR (07/10): The prior study of 06/09/2018, again is a scoliosis with convexity to the right, weak inspiration, multi lead pacemaker, distended bowel in the upper abdomen, previous right shoulder surgery and there are increased left hemithorax markings compatible with some atelectasis and/or infiltrate. Follow- up recommended. -CXR (07/11): Since the prior study of 07/10/2018, there appears to be major consolidation in the left hemithorax with some sparing at the left base. There is a prominent mediastinum with pacemaker and distended bowel in the abdomen. The right lung is clear. There is a scoliosis with convexity to the right. There are degenerative spine and shoulder changes. There are left shoulder calcifications. A follow-up study is suggested with deep inspiration to clarify the left hemithorax changes. The sparing of the left base is unusual and one must make sure this is not a subtle pneumothorax. Again follow-up imaging is suggested -CXR (07/11): Since the prior study of 07/11/2018 at 0704 hours, the left hemithorax is slightly better aerated with still some infiltrate/atelectasis and no sign of a gross pneumothorax. The remainder the study is unchanged -CXR (07/11): Since 1003 hours, new right jugular line has been inserted and the tip is in the right atrium. The remainder the study is unchanged. There is no sign of a pneumothorax. -CXR (07/12): A single AP view of the chest reveals motion artifact, weak inspiration, chin artifact, right jugular line with tip in junction of SVC and right atrium, left-sided double lead pacemaker, sclerotic knob, previous right humeral fracture stabilization with hardware and some congestive changes with atelectasis or infiltrate on the left. There is bowel in the right upper quadrant. Since the prior exam of 07/11/2018, there is no significant change. -CXR (07/12): An AP chest reveals an endotracheal tube, right jugular line and pacemaker. There is a large heart, sclerotic unfolded aorta and congestive changes with bilateral effusions with left base infiltrate or atelectasis. The pulmonary and pleural changes have increased and the endotracheal tube is new since 07/12/2018. An OG tube is not easily delineated in this study. -CXR (07/13): No significant change -CXR (07/14): Since 07/13/2018, are progressive bilateral pulmonary and pleural changes. The endotracheal tube, right jugular line, pacemaker and previous right humeral stabilization with hardware is again noted. -CXR (07/15): Improvement. Residual fluid and atelectasis left base. -CXR (07/17): Slight improvement since 07/15/2018. -CXR (07/18): ET tube removed. Progressive pulmonary and pleural findings. -CXR (07/19): No evidence of pneumothorax. Resolved CHF. Shallow inspiration with bilateral basilar atelectatic changes. Small residual pleural effusions. -Liver US: Right pleural effusion and trace ascites. Thick walled gallbladder with biliary sludge. -DUPLEX US: No evidence of deep venous thrombosis. -CT Head without contrast: No evidence of acute intracranial pathology. -EKG: Ventricular-paced rhythm, VR 60, QTc 614 -ECHO: Technically limited, LV Systolic function is moderately reduced, LV Is not well visualized, RA and LA mildly dilated, Mild to Mod TR, Mild MR, RV systolic pressure normal, Septal motion is consistent with conduction abnormality, Regional wall motion abnormalities cannot be excluded ASSESSMENT/PLAN: 83 y/o M with PMHx of CHF, COPD, HTN, HLD, CAD (s/p stenting x7 and pacemaker), Atrial Fibrillation, DM, chronic venous insufficiency, BPH was BIBEMS from [facility] for AMS and was admitted to the ICU for severe sepsis due to Cellulitus. #Septic Shock -Likely due B/L lower extremity cellulitis, Wound cultures noted above -Lactic acidosis resolved -Intubated (07/12), Extubated (07/17), Can resume Bipap HS and PRN; Saturating > 92% on Nasal canula -Central Line D/C'ed (07/11-07/18) -Maintain MAP >65 -Continue Zosyn (Started on 07/10), Vanco (started on 07/12); Trough pending this evening -Blood, urine culture noted above -Chest PT -Contact isolation precautions -ID (Dr. Thomas), Vascular surgery (Dr. Estrada), Cardiology (Dr. Peterson), Podiatry ( Dr. Greene) consulted, Appreciate recs #Dysphagia -Speech and swallow consulted, Appreciate Rec's. -Trial Magic cup tolerated; Dysphagia puree started today #Coffee ground gastric aspirate -Likely due to acute gastritis -Hgb Reached 6.5, Given 1 unit pRBCs (07/13) -FOBT Positive -GI Consulted, Appreciate Rec's, Protonix 40mg IVPB daily -Conservative management without endoscopic intervention #Transaminitis -LFTs trending down; Continue to trend -Liver US noted above -Hepatitis panel #Hyperkalemia -Resolved; Continue to monitor #Elevated TSH -Likely due to Severe Sepsis; Consider Euthyroid Sick Syndrome, Less likely Myxedema coma -Endocrinology (Dr. Duron) Consulted, Appreciate Rec's -TSH Trending down; T3, T4 noted; Cortisol, ACTH pending -Synthroid dose changed to PO 50mcg tmrw -Repeat labs after sepsis clears #AFib -Xarelto -Home dose Beta humberto held in the setting of Hypotension #DM -ISS, BGMs ACTID -Start Levemir 15u AM -A1c 6.8% -Hold Oral hypoglycemics #HTN -Restarted home dose Losartan 25mg PO Daily #FEN -PO fluids -Monitor for Hyperkalemia -Dysphagia Puree diet #PPx -DVT: Xarelto Dispo: Transfer to Tele CODE STATUS: DNR Visit type - Emergency Visit Emergency Visit: Yes ED Registration Date: 07/10/18 Care time: The patient presented to the Emergency Department on the above date and was hospitalized for further evaluation of their emergent condition. - New Patient This patient is new to me today: No - Critical Care Critical Care patient: No - Discharge Referral Referred to [facility] No
[2018-07-19] MEDS ORDERED: MAG HYDROX/AL HYDROX/SIMETH 30 ML UNIT-DOSE CUP PO PRN (18:44)
[2018-07-19] MEDS: SENNOSIDES 8.6MG TABLET (FP) PO SCH (21:30)
[2018-07-20] MEDS ORDERED: PIPERACILLIN/TAZOBACTAM 3.375 GM VIAL IVPB ONE ×3 (00:39→13:06)
[2018-07-20] MEDS ORDERED: DEXTROSE 5%-WATER - 50 ML IVPB ONE ×3 (00:40→13:07)
[2018-07-20] MEDS: PIPERACILLIN/TAZOB 3.375 GM 3.375 GM in DEXTROSE 5%-WATER - 50 ML IVPB SCH ×3 (01:11→17:48)
[2018-07-20] MEDS: LEVOTHYROXINE NA 50 MCG TABLET (FP) PO SCH (06:20)
[2018-07-20] MEDS: INSULIN (LEVEMIR) 100 UNITS/ML UNITS SQ SCH (06:21)
[2018-07-20] MEDS: INSULIN SLIDING SCALE (NOVOLOG) 1 VIAL SQ SCH ×3 (06:21→17:47)
[2018-07-20 07:57] LABS: HEMATOCRIT 23.9 % (35.4-49); MCH 34.3 pg (25.7-33.7); MCHC 33.4 g/dl (32.0-35.9); MEAN CELL VOLUME 102.9 fl (80-96); MEAN PLT VOLUME 8.8 fl (7.5-11.1); PLATELET COUNT 256 K/MM3 (134-434); RBC 2.32 M/mm3 (4.00-5.60); RDW 17.8 % (11.9-15.9); WHITE BLOOD COUNT 8.4 K/mm3 (4.0-10.0)
[2018-07-20] MEDS: ALBUTEROL SO4 2.5/IPRATROPIUM 0.5 INH SOL 3 ML VIAL.NEB. NEB SCH ×4 (08:06→21:05)
[2018-07-20 08:31] LABS: ALK PHOS 141 U/L (45-117); ANION GAP 6 MMOL/L (8-16); BILIRUBIN,TOTAL 0.7 mg/dL (0.2-1); BLOOD UREA NITROGEN 20 mg/dL (7-18); CALCIUM 7.7 mg/dL (8.5-10.1); CHLORIDE 111 mmol/L (98-107); CO2 31 mmol/L (21-32); CREATININE 0.8 mg/dL (0.55-1.3); GLUCOSE,RANDOM 169 mg/dL (74-106); PHOSPHOROUS 2.3 mg/dL (2.5-4.9); POTASSIUM 4.4 mmol/L (3.5-5.1); SGOT/AST 43 U/L (15-37); SGPT/ALT 65 U/L (13-61); SODIUM 148 mmol/L (136-145); TOT PROT 5.3 g/dl (6.4-8.2)
--- NOTE | 2018-07-20 10:17 | PN ---
Progress Note, Physician History of Present Illness: Renains on NC, tolerating dysphagia diet, remains off pressors. - Current Medication List Current Medications: Active Medications Al Hydroxide/Mg Hydroxide (Mylanta Oral Suspension -) 30 ml PO Q6H PRN PRN Reason: INDIGESTION Albuterol/Ipratropium (Duoneb -) 1 amp NEB RQID [facility] Last Admin: 07/20/18 08:06 Dose: 1 amp Carvedilol (Coreg -) 3.125 mg NGT BID [facility] Last Admin: 07/19/18 21:30 Dose: 3.125 mg Ferrous Sulfate (Feosol -) 325 mg PO DAILY [facility] Vancomycin HCl 1,250 mg/ (Dextrose) 250 mls @ 166.667 mls/hr IVPB Q24H [facility]; Protocol Piperacillin Sod/Tazobactam (Sod 3.375 gm/ Dextrose) 50 mls @ 100 mls/hr IVPB Q8H-IV [facility]; Protocol Last Admin: 07/20/18 01:11 Dose: 100 mls/hr Insulin Aspart (Novolog Vial Sliding Scale -) 1 vial SQ Q6HPO [facility]; Protocol Last Admin: 07/20/18 06:21 Dose: 2 units Insulin Detemir (Levemir Vial) 15 units SQ AM [facility] Last Admin: 07/20/18 06:21 Dose: 15 units Levothyroxine Sodium (Synthroid -) 50 mcg PO DAILY@0700 [facility] Last Admin: 07/20/18 06:20 Dose: 50 mcg Losartan Potassium (Cozaar -) 25 mg PO DAILY [facility] Pantoprazole Sodium (Protonix Iv) 40 mg IVPUSH DAILY [facility] Polyethylene Glycol (Miralax (For Daily Use) -) 17 gm PO BID [facility] Last Admin: 07/19/18 21:30 Dose: 17 gm Rivaroxaban (Xarelto -) 20 mg PO DAILY@1800 [facility] Senna (Senna -) 1 tab PO HS [facility] Last Admin: 07/19/18 21:30 Dose: 1 tab - Objective Vital Signs: Vital Signs Temperature 98 F 07/20/18 06:00 Pulse Rate 61 07/20/18 06:00 Respiratory Rate 20 07/20/18 06:00 Blood Pressure 105/42 L 07/20/18 06:00 O2 Sat by Pulse Oximetry (%) 98 07/19/18 22:35 Constitutional: Yes: No Distress, Calm, Thin Neck: Yes: Supple Cardiovascular: Yes: Regular Rate and Rhythm Respiratory: Yes: Regular, Diminished, On Nasal O2 Gastrointestinal: Yes: Normal Bowel Sounds, Soft Edema: No Labs: CBC, BMP 07/20/18 05:30 07/20/18 05:30 INR, PTT INR 1.28 (0.83-1.09) H 07/18/18 05:00 Fibrinogen 423.0 mg/dL (238-498) 07/12/18 05:30 Problem List - Problems (1) Abnormal liver function tests Code(s): R94.5 - ABNORMAL RESULTS OF LIVER FUNCTION STUDIES (2) CAD (coronary artery disease) Code(s): I25.10 - ATHSCL HEART DISEASE OF [place] CORONARY ARTERY W/O ANG PCTRS Qualifiers: Coronary Disease-Associated Artery/Lesion type: [place] artery [place] vs. transplanted heart: [place] heart Associated angina: without angina Qualified Code(s): I25.10 - Atherosclerotic heart disease of [place] coronary artery without angina pectoris (3) CHF (congestive heart failure) Code(s): I50.9 - HEART FAILURE, UNSPECIFIED Qualifiers: Heart failure type: combined systolic and diastolic Heart failure chronicity: chronic Qualified Code(s): I50.42 - Chronic combined systolic ( congestive) and diastolic (congestive) heart failure (4) Hypercholesterolemia Code(s): E78.00 - PURE HYPERCHOLESTEROLEMIA, UNSPECIFIED (5) Hypothyroid Code(s): E03.9 - HYPOTHYROIDISM, UNSPECIFIED Qualifiers: Hypothyroidism type: unspecified Qualified Code(s): E03.9 - Hypothyroidism , unspecified (6) Presence of permanent cardiac pacemaker Code(s): Z95.0 - PRESENCE OF CARDIAC PACEMAKER (7) Septic shock Code(s): A41.9 - SEPSIS, UNSPECIFIED ORGANISM; R65.21 - SEVERE SEPSIS WITH SEPTIC SHOCK (8) Sick sinus syndrome Code(s): I49.5 - SICK SINUS SYNDROME (9) History of percutaneous coronary intervention Code(s): Z98.890 - OTHER SPECIFIED POSTPROCEDURAL STATES (10) IDDM (insulin dependent diabetes mellitus) Code(s): E11.9 - TYPE 2 DIABETES MELLITUS WITHOUT COMPLICATIONS; Z79.4 - SKILLED NURSING (CURRENT) USE OF INSULIN (11) Sleep apnea Code(s): G47.30 - SLEEP APNEA, UNSPECIFIED Qualifiers: Sleep apnea type: unspecified type Qualified Code(s): G47.30 - Sleep apnea , unspecified (12) Atrial fibrillation with controlled ventricular rate Code(s): I48.91 - UNSPECIFIED ATRIAL FIBRILLATION (13) Chronic anticoagulation Code(s): Z79.01 - ELECTRONIC ORGAN MECHANIC (CURRENT) USE OF ANTICOAGULANTS Assessment/Plan 05/02/2018 Echocardiography revealed systolic LV dysfunction with LVEF 40-45%, moderate (mean gradient of 27.7 and peak gradient 46 mmHg, LYNETTE of 0.78 cm2), mild MR, mild to moderate TR 1. Acute Hypoxic and Hypercapneic Respiratory failure improving 2. Post septic shock - PNA, cellulitis, staph bacteremia 3. Acute on chronic LV failure class II NYHA classification LV failure referable to systolic/diastolic heart failure resolving 4. CAD s/p PCI/stent, angina pectoris 5. Persistent AF [id number] score of 6 on NOAC 6. AV block s/p PPM 7. HTN 8. Hypercholesterolemia 9. DM 10. COPD 11. CKD 12. Anemia 13. Hypothyroidism 14. BPH s/p TURP 15. Severe OSAS (RDI 108 per hour / desaturation to 72%) 16. Shock liver resolving PLAN: 1. Antibiotic coverage, IV steroid taper with GI protection, BD, taper Fio2 to keep Spo2 >90% 2. Xarelto 20 qd, carvedilol 3.125 bid, losartan 25 qd with uptitration as hemodynamics tolerate. Lipitor held pending resolution of LFT abnl 3. Diuresis as needed to keep even with monitor renal function and electrolytes
[2018-07-20] MEDS: FERROUS SO4 325 MG TABLET (FP) PO SCH (10:27)
[2018-07-20] MEDS: POLYETHYLENE GLYCOL 3350 119 GM BTL PO SCH ×2 (10:27→22:31)
[2018-07-20] MEDS: CARVEDILOL 3.125 MG TABLET (FP) NGT SCH ×2 (10:27→22:31)
[2018-07-20] MEDS: LOSARTAN POTASSIUM 25 MG TABLET PO SCH (10:27)
[2018-07-20] MEDS: PANTOPRAZOLE SODIUM 40 MG VIAL IVPUSH SCH (10:28)
--- NOTE | 2018-07-20 12:58 | PN ---
Teaching Attending Note Name of Resident: Gwen Richardson ATTENDING PHYSICIAN STATEMENT I saw and evaluated the patient. I reviewed the resident's note and discussed the case with the resident. I agree with the resident's findings and plan as documented. SUBJECTIVE: No fever or chills. No pain, no OSB . confabulates and hard to get more information form him OBJECTIVE: Awake, alert and cooperative CV: RRR, 3/6 SM RUSB and LUSB, JVD+. Lungs: CTAB Abd: soft, NT, ND , NL BS. Ext:b/l leg wounds with surrounding erythema . minimal edema on feet ASSESSMENT AND PLAN: 83 y/o man with h/o CAD, s/p stents, permanent A fib, Systolic heart failure, HTN, HLP, DM , CKD , Anemia, COPD,recent admission for acute CHF exacerbation who was sent from [place] for LE pain and was found to have septic shock form LE cellulites, and went into hypoxic resp failure 1- Hypoxic resp failure, s/p extubation 2- s/p septic shock 3- Acute systolic and diastolic heart failure: improved 4- LE cellulites 5- Transaminitis 6- sick euthyroid syndrome 7- DM . 8- Hypernatremia Plan; - hold off more diuresis as Na is elevated - cont O2 via NC - cont losartan and BB . Bp tolerates - cont abx still has surrounding erythema - cont synthroid cont insulin - cont insulin - monitor Na - TFts noted - monitor LFTs - cont puree diet with honey thick liquids Dispo: HLOC
[2018-07-20] MEDS ORDERED: PT OWN MED DRAWER 7, Y5N ONE ×3 (13:06→15:11)
--- NOTE | 2018-07-20 13:14 | PN ---
Physical Exam: SUBJECTIVE: Patient seen and examined this morning at bedside. Patient remains confused however denies fevers, chills, chest pain, SOB. No acute overnight events as per nursing. OBJECTIVE: Vital Signs Period Temp Pulse Resp BP Sys/Kuo Pulse Ox Last 24 Hr 97.9 F-99.8 F 61-83 15-20 105-116/42-60 94-99 GENERAL: A&Ox3, NAD, lying comfortably watching television HEAD: NCAT NECK: No JVD LUNGS: Scattered Rhonchi HEART: Regular rate and rhythm, normal S1 and S2, LLSB Murmur ABDOMEN: Soft, nontender, not distended, normoactive bowel sounds BACK: Stage 2 ulcer superior to the gluteal fold without active drainage or surrounding erythema EXTREMITIES: 2+ pulses, No edema. Multiple, Lower extremity wounds without active drainage, Erythema and warmth continue to improve SKIN: Warm, dry Laboratory Results - last 24 hr 07/19/18 07/19/18 07/20/18 17:49 23:18 05:30 WBC 8.4 RBC 2.32 L Hgb 8.0 L Hct 23.9 L D MCV 102.9 H MCH 34.3 H MCHC 33.4 RDW 17.8 H Plt Count 256 MPV 8.8 Sodium Potassium Chloride Carbon Dioxide Anion Gap BUN Creatinine Creat Clearance w eGFR POC Glucometer [phone] Random Glucose Calcium Phosphorus Magnesium Total Bilirubin AST ALT Alkaline Phosphatase Total Protein Albumin TSH Free T4 07/20/18 07/20/18 07/20/18 05:30 05:30 05:47 WBC RBC Hgb Hct MCV MCH MCHC RDW Plt Count MPV Sodium 148 H Potassium 4.4 Chloride 111 H Carbon Dioxide 31 Anion Gap 6 L BUN 20 H Creatinine 0.8 Creat Clearance w eGFR > 60 POC Glucometer 195 Random Glucose 169 H Calcium 7.7 L Phosphorus 2.3 L Magnesium 2.0 Total Bilirubin 0.7 AST 43 H ALT 65 H Alkaline Phosphatase 141 H Total Protein 5.3 L Albumin 2.0 L TSH 4.19 H D Free T4 1.05 Microbiology 07/11/18 03:30 Leg - Right Lower Gram Stain - Final 07/11/18 03:30 Leg - Right Lower Wound Culture - Preliminary Pseudomonas Aeruginosa Klebsiella Oxytoca Mr S Aureus Enterococcus Faecalis 07/10/18 11:15 Blood - Peripheral Venous Blood Culture - Final NO GROWTH AFTER 5 DAYS INCUBATION 07/10/18 11:00 Blood - Peripheral Venous Blood Culture - Final NO GROWTH AFTER 5 DAYS INCUBATION 07/10/18 12:20 Urine - Urine Clean Catch Urine Culture - Final Staphylococcus Warneri Active Medications Al Hydroxide/Mg Hydroxide (Mylanta Oral Suspension -) 30 ml PO Q6H PRN PRN Reason: INDIGESTION Albuterol/Ipratropium (Duoneb -) 1 amp NEB RQID [facility] Last Admin: 07/20/18 12:04 Dose: 1 amp Carvedilol (Coreg -) 3.125 mg NGT BID [facility] Last Admin: 07/20/18 10:27 Dose: 3.125 mg Ferrous Sulfate (Feosol -) 325 mg PO DAILY [facility] Last Admin: 07/20/18 10:27 Dose: 325 mg Vancomycin HCl 1,250 mg/ (Dextrose) 250 mls @ 166.667 mls/hr IVPB Q24H [facility]; Protocol Piperacillin Sod/Tazobactam (Sod 3.375 gm/ Dextrose) 50 mls @ 100 mls/hr IVPB Q8H-IV [facility]; Protocol Last Admin: 07/20/18 10:27 Dose: 100 mls/hr Insulin Aspart (Novolog Vial Sliding Scale -) 1 vial SQ Q6HPO [facility]; Protocol Last Admin: 07/20/18 12:08 Dose: 4 units Insulin Detemir (Levemir Vial) 15 units SQ AM [facility] Last Admin: 07/20/18 06:21 Dose: 15 units Levothyroxine Sodium (Synthroid -) 50 mcg PO DAILY@0700 [facility] Last Admin: 07/20/18 06:20 Dose: 50 mcg Losartan Potassium (Cozaar -) 25 mg PO DAILY [facility] Last Admin: 07/20/18 10:27 Dose: 25 mg Pantoprazole Sodium (Protonix Iv) 40 mg IVPUSH DAILY [facility] Last Admin: 07/20/18 10:28 Dose: 40 mg Polyethylene Glycol (Miralax (For Daily Use) -) 17 gm PO BID [facility] Last Admin: 07/20/18 10:27 Dose: 17 gm Rivaroxaban (Xarelto -) 20 mg PO DAILY@1800 [facility] Senna (Senna -) 1 tab PO HS [facility] Last Admin: 07/19/18 21:30 Dose: 1 tab IMAGING: -CXR (07/10): The prior study of 06/09/2018, again is a scoliosis with convexity to the right, weak inspiration, multi lead pacemaker, distended bowel in the upper abdomen, previous right shoulder surgery and there are increased left hemithorax markings compatible with some atelectasis and/or infiltrate. Follow- up recommended. -CXR (07/11): Since the prior study of 07/10/2018, there appears to be major consolidation in the left hemithorax with some sparing at the left base. There is a prominent mediastinum with pacemaker and distended bowel in the abdomen. The right lung is clear. There is a scoliosis with convexity to the right. There are degenerative spine and shoulder changes. There are left shoulder calcifications. A follow-up study is suggested with deep inspiration to clarify the left hemithorax changes. The sparing of the left base is unusual and one must make sure this is not a subtle pneumothorax. Again follow-up imaging is suggested -CXR (07/11): Since the prior study of 07/11/2018 at 0704 hours, the left hemithorax is slightly better aerated with still some infiltrate/atelectasis and no sign of a gross pneumothorax. The remainder the study is unchanged -CXR (07/11): Since 1003 hours, new right jugular line has been inserted and the tip is in the right atrium. The remainder the study is unchanged. There is no sign of a pneumothorax. -CXR (07/12): A single AP view of the chest reveals motion artifact, weak inspiration, chin artifact, right jugular line with tip in junction of SVC and right atrium, left-sided double lead pacemaker, sclerotic knob, previous right humeral fracture stabilization with hardware and some congestive changes with atelectasis or infiltrate on the left. There is bowel in the right upper quadrant. Since the prior exam of 07/11/2018, there is no significant change. -CXR (07/12): An AP chest reveals an endotracheal tube, right jugular line and pacemaker. There is a large heart, sclerotic unfolded aorta and congestive changes with bilateral effusions with left base infiltrate or atelectasis. The pulmonary and pleural changes have increased and the endotracheal tube is new since 07/12/2018. An OG tube is not easily delineated in this study. -CXR (07/13): No significant change -CXR (07/14): Since 07/13/2018, are progressive bilateral pulmonary and pleural changes. The endotracheal tube, right jugular line, pacemaker and previous right humeral stabilization with hardware is again noted. -CXR (07/15): Improvement. Residual fluid and atelectasis left base. -CXR (07/17): Slight improvement since 07/15/2018. -CXR (07/18): ET tube removed. Progressive pulmonary and pleural findings. -CXR (07/19): No evidence of pneumothorax. Resolved CHF. Shallow inspiration with bilateral basilar atelectatic changes. Small residual pleural effusions. -Liver US: Right pleural effusion and trace ascites. Thick walled gallbladder with biliary sludge. -DUPLEX US: No evidence of deep venous thrombosis. -CT Head without contrast: No evidence of acute intracranial pathology. -EKG: Ventricular-paced rhythm, VR 60, QTc 614 -ECHO: Technically limited, LV Systolic function is moderately reduced, LV Is not well visualized, RA and LA mildly dilated, Mild to Mod TR, Mild MR, RV systolic pressure normal, Septal motion is consistent with conduction abnormality, Regional wall motion abnormalities cannot be excluded ASSESSMENT/PLAN: 83 y/o M with PMHx of CHF, COPD, HTN, HLD, CAD (s/p stenting x7 and pacemaker), Atrial Fibrillation, DM, chronic venous insufficiency, BPH was BIBEMS from [facility] for AMS and was admitted to the ICU for severe sepsis due to Cellulitus. #Septic Shock -Likely due B/L lower extremity cellulitis, Wound cultures noted above -Lactic acidosis resolved -Intubated (07/12), Extubated (07/17), Can resume Bipap HS and PRN; Saturating > 92% on Nasal canulla -Central Line D/C'ed (07/11-07/18) -Maintain MAP >65 -Continue Zosyn (Started on 07/10), Vanco (started on 07/12) -Blood, urine culture noted above -Chest PT -Contact isolation precautions -ID (Dr. Thomas), Vascular surgery (Dr. Estrada), Cardiology (Dr. Peterson), Podiatry ( Dr. Greene) consulted, Appreciate recs #Dysphagia -Speech and swallow consulted, Appreciate Rec's. -Trial Magic cup tolerated; Dysphagia puree started today #Coffee ground gastric aspirate -Likely due to acute gastritis -Hgb Reached 6.5, Given 1 unit pRBCs (07/13) -FOBT Positive -GI Consulted, Appreciate Rec's, Protonix 40mg IVPB daily -Conservative management without endoscopic intervention #Transaminitis -LFTs trending down; Continue to trend -Liver US noted above -Hepatitis panel #Hyperkalemia -Resolved; Continue to monitor #Elevated TSH -Likely due to Severe Sepsis; Consider Euthyroid Sick Syndrome, Less likely Myxedema coma -Endocrinology (Dr. Duron) Consulted, Appreciate Rec's -Synthroid PO 50mcg -Repeat labs noted above #AFib -Xarelto, Coreg #DM -ISS, BGMs ACTID -Start Levemir 15u AM -A1c 6.8% -Hold Oral hypoglycemics #HTN -Losartan, Coreg #FEN -PO fluids -Monitor for Hyperkalemia -Dysphagia Puree diet #PPx -DVT: Xarelto Dispo: Transfer to Tele CODE STATUS: DNR Visit type - Emergency Visit Emergency Visit: Yes ED Registration Date: 07/10/18 Care time: The patient presented to the Emergency Department on the above date and was hospitalized for further evaluation of their emergent condition. - New Patient This patient is new to me today: No - Critical Care Critical Care patient: No - Discharge Referral Referred to [facility] Med P.C.: No
--- NOTE | 2018-07-20 13:43 | PN ---
Progress Note, Physician History of Present Illness: patient much more awake and alert still confused legs looking better - Current Medication List Current Medications: Active Medications Al Hydroxide/Mg Hydroxide (Mylanta Oral Suspension -) 30 ml PO Q6H PRN PRN Reason: INDIGESTION Albuterol/Ipratropium (Duoneb -) 1 amp NEB RQID [facility] Last Admin: 07/20/18 12:04 Dose: 1 amp Carvedilol (Coreg -) 3.125 mg NGT BID [facility] Last Admin: 07/20/18 10:27 Dose: 3.125 mg Docusate Sodium (Colace -) 100 mg PO TID [facility] Ferrous Sulfate (Feosol -) 325 mg PO DAILY [facility] Last Admin: 07/20/18 10:27 Dose: 325 mg Vancomycin HCl 1,250 mg/ (Dextrose) 250 mls @ 166.667 mls/hr IVPB Q24H [facility]; Protocol Piperacillin Sod/Tazobactam (Sod 3.375 gm/ Dextrose) 50 mls @ 100 mls/hr IVPB Q8H-IV [facility]; Protocol Last Admin: 07/20/18 10:27 Dose: 100 mls/hr Insulin Aspart (Novolog Vial Sliding Scale -) 1 vial SQ Q6HPO [facility]; Protocol Last Admin: 07/20/18 12:08 Dose: 4 units Insulin Detemir (Levemir Vial) 15 units SQ AM [facility] Last Admin: 07/20/18 06:21 Dose: 15 units Levothyroxine Sodium (Synthroid -) 50 mcg PO DAILY@0700 [facility] Last Admin: 07/20/18 06:20 Dose: 50 mcg Losartan Potassium (Cozaar -) 25 mg PO DAILY [facility] Last Admin: 07/20/18 10:27 Dose: 25 mg Pantoprazole Sodium (Protonix Iv) 40 mg IVPUSH DAILY [facility] Last Admin: 07/20/18 10:28 Dose: 40 mg Polyethylene Glycol (Miralax (For Daily Use) -) 17 gm PO BID [facility] Last Admin: 07/20/18 10:27 Dose: 17 gm Rivaroxaban (Xarelto -) 20 mg PO DAILY@1800 [facility] Senna (Senna -) 1 tab PO HS [facility] Last Admin: 07/19/18 21:30 Dose: 1 tab - Objective Vital Signs: Vital Signs Temperature 99.8 F H 07/20/18 10:00 Pulse Rate 83 11/15/18 10:00 Respiratory Rate 20 07/20/18 10:00 Blood Pressure 112/60 07/20/18 10:00 O2 Sat by Pulse Oximetry (%) 99 07/20/18 10:00 Constitutional: Yes: No Distress, Calm Cardiovascular: Yes: Regular Rate and Rhythm Respiratory: Yes: Regular, CTA Bilaterally Gastrointestinal: Yes: Normal Bowel Sounds, Soft Musculoskeletal: Yes: WNL Extremities: Yes: Other Wound/Incision: Yes: Other (improving) Neurological: Yes: Alert, Confusion Psychiatric: Yes: Alert, Oriented Labs: CBC, BMP 07/20/18 05:30 07/20/18 05:30 INR, PTT INR 1.28 (0.83-1.09) H 07/18/18 05:00 Fibrinogen 423.0 mg/dL (238-498) 07/12/18 05:30 Assessment/Plan septic shock Systolic / Diastolic CHF COPD HTN HLD CAD PPM Atrial Fibrillation DM Chronic venous insufficiency BPH s/p TURP CKD Anemia plan continue abx patient need abx for 14 days wound care rest as per the team
[2018-07-20] MEDS: DOCUSATE SODIUM 100 MG CAPSULE (FP) PO SCH ×2 (14:01→22:31)
--- NOTE | 2018-07-20 14:26 | PN ---
Progress Note (short form) - Note Progress Note: NAD on 3 L NC O2. More awake alert, but still not at baseline. No CP. SOB improving. OBJECTIVE: Intake & Output 07/17/18 07/18/18 07/19/18 07/20/18 23:59 23:59 23:59 23:59 Intake Total 982 200 700 230 Output Total 1700 3900 1050 Balance -037 -3558 -350 230 Weight 165 lb 5 oz 163 lb 8 oz 153 lb 6 oz Last Vital Signs Temp Pulse Resp BP Pulse Ox 99.8 F H 83 20 112/60 99 07/20/18 10:00 07/20/18 10:00 07/20/18 10:00 07/20/18 10:00 07/20/18 10:00 Active Medications Al Hydroxide/Mg Hydroxide (Mylanta Oral Suspension -) 30 ml PO Q6H PRN PRN Reason: INDIGESTION Albuterol/Ipratropium (Duoneb -) 1 amp NEB RQID [facility] Last Admin: 07/20/18 12:04 Dose: 1 amp Carvedilol (Coreg -) 3.125 mg NGT BID [facility] Last Admin: 07/20/18 10:27 Dose: 3.125 mg Docusate Sodium (Colace -) 100 mg PO TID [facility] Last Admin: 07/20/18 14:01 Dose: 100 mg Ferrous Sulfate (Feosol -) 325 mg PO DAILY [facility] Last Admin: 07/20/18 10:27 Dose: 325 mg Vancomycin HCl 1,250 mg/ (Dextrose) 250 mls @ 166.667 mls/hr IVPB Q24H [facility]; Protocol Piperacillin Sod/Tazobactam (Sod 3.375 gm/ Dextrose) 50 mls @ 100 mls/hr IVPB Q8H-IV [facility]; Protocol Last Admin: 07/20/18 10:27 Dose: 100 mls/hr Insulin Aspart (Novolog Vial Sliding Scale -) 1 vial SQ Q6HPO [facility]; Protocol Last Admin: 07/20/18 12:08 Dose: 4 units Insulin Detemir (Levemir Vial) 15 units SQ AM [facility] Last Admin: 07/20/18 06:21 Dose: 15 units Levothyroxine Sodium (Synthroid -) 50 mcg PO DAILY@0700 [facility] Last Admin: 11/15/18 06:20 Dose: 50 mcg Losartan Potassium (Cozaar -) 25 mg PO DAILY [facility] Last Admin: 07/20/18 10:27 Dose: 25 mg Pantoprazole Sodium (Protonix Iv) 40 mg IVPUSH DAILY [facility] Last Admin: 07/20/18 10:28 Dose: 40 mg Polyethylene Glycol (Miralax (For Daily Use) -) 17 gm PO BID [facility] Last Admin: 07/20/18 10:27 Dose: 17 gm Rivaroxaban (Xarelto -) 20 mg PO DAILY@1800 [facility] Senna (Senna -) 1 tab PO HS [facility] Last Admin: 07/19/18 21:30 Dose: 1 tab Gen: less tachypneic, more alert, awake Heart: RRR Lung: decreased breath sounds at the bases Abd: soft, nontender Ext: + edema Laboratory Results - last 24 hr 07/19/18 07/19/18 07/20/18 17:49 23:18 05:30 WBC 8.4 RBC 2.32 L Hgb 8.0 L Hct 23.9 L D MCV 102.9 H MCH 34.3 H MCHC 33.4 RDW 17.8 H Plt Count 256 MPV 8.8 Sodium Potassium Chloride Carbon Dioxide Anion Gap BUN Creatinine Creat Clearance w eGFR POC Glucometer 324.39567 251 Random Glucose Calcium Phosphorus Magnesium Total Bilirubin AST ALT Alkaline Phosphatase Total Protein Albumin TSH Free T4 07/20/18 07/20/18 07/20/18 05:30 05:30 05:47 WBC RBC Hgb Hct MCV MCH MCHC RDW Plt Count MPV Sodium 148 H Potassium 4.4 Chloride 111 H Carbon Dioxide 31 Anion Gap 6 L BUN 20 H Creatinine 0.8 Creat Clearance w eGFR > 60 POC Glucometer 195 Random Glucose 169 H Calcium 7.7 L Phosphorus 2.3 L Magnesium 2.0 Total Bilirubin 0.7 AST 43 H ALT 65 H Alkaline Phosphatase 141 H Total Protein 5.3 L Albumin 2.0 L TSH 4.19 H D Free T4 1.05 07/20/18 11:22 WBC RBC Hgb Hct MCV MCH MCHC RDW Plt Count MPV Sodium Potassium Chloride Carbon Dioxide Anion Gap BUN Creatinine Creat Clearance w eGFR POC Glucometer 233 Random Glucose Calcium Phosphorus Magnesium Total Bilirubin AST ALT Alkaline Phosphatase Total Protein Albumin TSH Free T4 ASSESSMENT AND PLAN: Acute Hypoxic and Hypercapneic Respiratory Failure improving Pneumonia Cellulitis Staph Bacteremia Septic Shock resolving Lactic Acidosis resolved Acute Kidney Injury improving Elevated LFTs likely Ischemic Injury LV Systolic Dysfunction Atrial Fibrillation CAD HTN DM Hyperlipidemia - ABX - monitor urine output, creatinine - taper off steroids - O2 to keep Spo2 >90% - monitor lytes - continue anticoagulation - DVT/GI prophylaxis - NIPPV QHS and PRN - Aspiration precautions Dr Claudio
[2018-07-20] MEDS: VANCOMYCIN 1,250 MG in DEXTROSE 5%-WATER - 250 ML IVPB SCH (15:03)
[2018-07-20] MEDS: RIVAROXABAN 20 MG TABLET PO SCH (17:47)
[2018-07-20] MEDS: SENNOSIDES 8.6MG TABLET (FP) PO SCH (22:31)
[2018-07-21] MEDS: INSULIN SLIDING SCALE (NOVOLOG) 1 VIAL SQ SCH ×4 (00:04→18:10)
[2018-07-21] MEDS ORDERED: DEXTROSE 5%-WATER - 50 ML IVPB ONE ×3 (01:03→17:57)
[2018-07-21] MEDS ORDERED: PIPERACILLIN/TAZOBACTAM 3.375 GM VIAL IVPB ONE ×3 (01:03→17:56)
[2018-07-21] MEDS: PIPERACILLIN/TAZOB 3.375 GM 3.375 GM in DEXTROSE 5%-WATER - 50 ML IVPB SCH ×3 (01:14→18:07)
[2018-07-21] MEDS: LEVOTHYROXINE NA 50 MCG TABLET (FP) PO SCH (06:12)
[2018-07-21] MEDS: DOCUSATE SODIUM 100 MG CAPSULE (FP) PO SCH ×3 (06:12→22:17)
[2018-07-21] MEDS: INSULIN (LEVEMIR) 100 UNITS/ML UNITS SQ SCH (06:27)
[2018-07-21 06:55] LABS: BASO % 0.7 % (0-2.0); EOS % 5.6 % (0-4.5); HEMATOCRIT 26.6 % (35.4-49); HEMOGLOBIN 8.5 GM/dL (11.7-16.9); LYMPH % 8.9 % (8-40); MCH 33.5 pg (25.7-33.7); MCHC 31.8 g/dl (32.0-35.9); MEAN CELL VOLUME 105.2 fl (80-96); MEAN PLT VOLUME 9.3 fl (7.5-11.1); MONO % 7.3 % (3.8-10.2); NEUT % 77.5 % (42.8-82.8); PLATELET COUNT 261 K/MM3 (134-434); RBC 2.53 M/mm3 (4.00-5.60); RDW 18.9 % (11.9-15.9); WHITE BLOOD COUNT 10.1 K/mm3 (4.0-10.0)
[2018-07-21 07:32] LABS: ALBUMIN 2.2 g/dl (3.4-5.0); ALK PHOS 152 U/L (45-117); ANION GAP 5 MMOL/L (8-16); BILIRUBIN,TOTAL 0.6 mg/dL (0.2-1); BLOOD UREA NITROGEN 22 mg/dL (7-18); CALCIUM 8.3 mg/dL (8.5-10.1); CHLORIDE 108 mmol/L (98-107); CO2 30 mmol/L (21-32); CREATININE 0.9 mg/dL (0.55-1.3); GLUCOSE,RANDOM 237 mg/dL (74-106); MAGNESIUM 2.3 mg/dL (1.8-2.4); PHOSPHOROUS 2.2 mg/dL (2.5-4.9); POTASSIUM 4.5 mmol/L (3.5-5.1); SGOT/AST 69 U/L (15-37); SGPT/ALT 80 U/L (13-61); SODIUM 143 mmol/L (136-145); TOT PROT 5.7 g/dl (6.4-8.2)
[2018-07-21] MEDS: ALBUTEROL SO4 2.5/IPRATROPIUM 0.5 INH SOL 3 ML VIAL.NEB. NEB SCH ×4 (07:54→20:44)
[2018-07-21] MEDS: CARVEDILOL 3.125 MG TABLET (FP) NGT SCH ×2 (10:23→22:17)
[2018-07-21] MEDS: LOSARTAN POTASSIUM 25 MG TABLET PO SCH (10:23)
[2018-07-21] MEDS: PANTOPRAZOLE SODIUM 40 MG VIAL IVPUSH SCH (10:23)
[2018-07-21] MEDS: FERROUS SO4 325 MG TABLET (FP) PO SCH (10:23)
[2018-07-21] MEDS: POLYETHYLENE GLYCOL 3350 119 GM BTL PO SCH ×2 (10:24→22:17)
--- NOTE | 2018-07-21 10:50 | PN ---
Progress Note, Physician History of Present Illness: Renains on NC, tolerating dysphagia diet, no events on telemetry. - Current Medication List Current Medications: Active Medications Al Hydroxide/Mg Hydroxide (Mylanta Oral Suspension -) 30 ml PO Q6H PRN PRN Reason: INDIGESTION Albuterol/Ipratropium (Duoneb -) 1 amp NEB RQID [facility] Last Admin: 07/21/18 07:54 Dose: 1 amp Carvedilol (Coreg -) 3.125 mg NGT BID [facility] Last Admin: 07/21/18 10:23 Dose: 3.125 mg Docusate Sodium (Colace -) 100 mg PO TID [facility] Last Admin: 07/21/18 06:12 Dose: 100 mg Ferrous Sulfate (Feosol -) 325 mg PO DAILY [facility] Last Admin: 07/21/18 10:23 Dose: 325 mg Vancomycin HCl 1,250 mg/ (Dextrose) 250 mls @ 166.667 mls/hr IVPB Q24H [facility]; Protocol Last Admin: 07/20/18 15:03 Dose: 166.667 mls/hr Piperacillin Sod/Tazobactam (Sod 3.375 gm/ Dextrose) 50 mls @ 100 mls/hr IVPB Q8H-IV [facility]; Protocol Last Admin: 07/21/18 10:23 Dose: 100 mls/hr Insulin Aspart (Novolog Vial Sliding Scale -) 1 vial SQ Q6HPO [facility]; Protocol Last Admin: 07/21/18 06:26 Dose: 6 units Insulin Detemir (Levemir Vial) 17 units SQ AM [facility] Levothyroxine Sodium (Synthroid -) 50 mcg PO DAILY@0700 [facility] Last Admin: 07/21/18 06:12 Dose: 50 mcg Losartan Potassium (Cozaar -) 25 mg PO DAILY [facility] Last Admin: 07/21/18 10:23 Dose: 25 mg Pantoprazole Sodium (Protonix Iv) 40 mg IVPUSH DAILY [facility] Last Admin: 07/21/18 10:23 Dose: 40 mg Polyethylene Glycol (Miralax (For Daily Use) -) 17 gm PO BID [facility] Last Admin: 07/21/18 10:24 Dose: 17 gm Rivaroxaban (Xarelto -) 20 mg PO DAILY@1800 [facility] Last Admin: 07/20/18 17:47 Dose: 20 mg Senna (Senna -) 1 tab PO HS [facility] Last Admin: 07/20/18 22:31 Dose: 1 tab - Objective Vital Signs: Vital Signs Temperature 98.6 F 07/21/18 05:43 Pulse Rate 62 07/21/18 05:43 Respiratory Rate 18 07/21/18 05:43 Blood Pressure 125/50 L 07/21/18 05:43 O2 Sat by Pulse Oximetry (%) 99 07/20/18 20:52 Constitutional: Yes: No Distress, Calm, Thin Neck: Yes: Supple Cardiovascular: Yes: Regular Rate and Rhythm Respiratory: Yes: Regular, On Nasal O2 Gastrointestinal: Yes: Normal Bowel Sounds, Soft Edema: No Labs: CBC, BMP 07/21/18 05:30 07/21/18 05:30 INR, PTT INR 1.28 (0.83-1.09) H 07/18/18 05:00 Fibrinogen 423.0 mg/dL (238-498) 07/12/18 05:30 - ....Imaging EKG: Report Reviewed (Tele: Afib v-paced) Problem List - Problems (1) Abnormal liver function tests Code(s): R94.5 - ABNORMAL RESULTS OF LIVER FUNCTION STUDIES (2) CAD (coronary artery disease) Code(s): I25.10 - ATHSCL HEART DISEASE OF [place] CORONARY ARTERY W/O ANG PCTRS Qualifiers: Coronary Disease-Associated Artery/Lesion type: [place] artery [place] vs. transplanted heart: [place] heart Associated angina: without angina Qualified Code(s): I25.10 - Atherosclerotic heart disease of [place] coronary artery without angina pectoris (3) CHF (congestive heart failure) Code(s): I50.9 - HEART FAILURE, UNSPECIFIED Qualifiers: Heart failure type: combined systolic and diastolic Heart failure chronicity: chronic Qualified Code(s): I50.42 - Chronic combined systolic ( congestive) and diastolic (congestive) heart failure (4) Hypercholesterolemia Code(s): E78.00 - PURE HYPERCHOLESTEROLEMIA, UNSPECIFIED (5) Hypothyroid Code(s): E03.9 - HYPOTHYROIDISM, UNSPECIFIED Qualifiers: Hypothyroidism type: unspecified Qualified Code(s): E03.9 - Hypothyroidism , unspecified (6) Presence of permanent cardiac pacemaker Code(s): Z95.0 - PRESENCE OF CARDIAC PACEMAKER (7) Septic shock Code(s): A41.9 - SEPSIS, UNSPECIFIED ORGANISM; R65.21 - SEVERE SEPSIS WITH SEPTIC SHOCK (8) Sick sinus syndrome Code(s): I49.5 - SICK SINUS SYNDROME (9) History of percutaneous coronary intervention Code(s): Z98.890 - OTHER SPECIFIED POSTPROCEDURAL STATES (10) IDDM (insulin dependent diabetes mellitus) Code(s): E11.9 - TYPE 2 DIABETES MELLITUS WITHOUT COMPLICATIONS; Z79.4 - [facility] (CURRENT) USE OF INSULIN (11) Sleep apnea Code(s): G47.30 - SLEEP APNEA, UNSPECIFIED Qualifiers: Sleep apnea type: unspecified type Qualified Code(s): G47.30 - Sleep apnea , unspecified (12) Atrial fibrillation with controlled ventricular rate Code(s): I48.91 - UNSPECIFIED ATRIAL FIBRILLATION (13) Chronic anticoagulation Code(s): Z79.01 - LONG[facility]M (CURRENT) USE OF ANTICOAGULANTS Assessment/Plan 05/02/2018 Echocardiography revealed systolic LV dysfunction with LVEF 40-45%, moderate (mean gradient of 27.7 and peak gradient 46 mmHg, LYNETTE of 0.78 cm2), mild MR, mild to moderate TR 1. Acute Hypoxic and Hypercapneic Respiratory failure improving 2. Post septic shock - PNA, cellulitis, staph bacteremia 3. Acute on chronic LV failure class II NYHA classification LV failure referable to systolic/diastolic heart failure resolving 4. CAD s/p PCI/stent, angina pectoris 5. Persistent AF [id number] score of 6 on NOAC 6. AV block s/p PPM 7. HTN 8. Hypercholesterolemia 9. DM 10. COPD 11. CKD 12. Anemia 13. Hypothyroidism 14. BPH s/p TURP 15. Severe OSAS (RDI 108 per hour / desaturation to 72%) 16. Shock liver resolving PLAN: 1. Complete antibiotic course, IV steroid taper with GI protection, BD, taper Fio2 to keep Spo2 >90% 2. Xarelto 20 qd, carvedilol 3.125 bid, losartan 25 qd with uptitration as hemodynamics tolerate. Lipitor held pending resolution of LFT abnl 3. Diuresis as needed to keep even with monitor renal function and electrolytes 4. D/c telemetry
--- NOTE | 2018-07-21 11:37 | PN ---
Progress Note, Physician History of Present Illness: continues to improve mentally still not at base line confusion still persists - Current Medication List Current Medications: Active Medications Al Hydroxide/Mg Hydroxide (Mylanta Oral Suspension -) 30 ml PO Q6H PRN PRN Reason: INDIGESTION Albuterol/Ipratropium (Duoneb -) 1 amp NEB RQID [facility] Last Admin: 07/21/18 11:32 Dose: 1 amp Carvedilol (Coreg -) 3.125 mg NGT BID [facility] Last Admin: 07/21/18 10:23 Dose: 3.125 mg Docusate Sodium (Colace -) 100 mg PO TID [facility] Last Admin: 07/21/18 06:12 Dose: 100 mg Ferrous Sulfate (Feosol -) 325 mg PO DAILY [facility] Last Admin: 07/21/18 10:23 Dose: 325 mg Vancomycin HCl 1,250 mg/ (Dextrose) 250 mls @ 166.667 mls/hr IVPB Q24H [facility]; Protocol Last Admin: 07/20/18 15:03 Dose: 166.667 mls/hr Piperacillin Sod/Tazobactam (Sod 3.375 gm/ Dextrose) 50 mls @ 100 mls/hr IVPB Q8H-IV [facility]; Protocol Last Admin: 07/21/18 10:23 Dose: 100 mls/hr Insulin Aspart (Novolog Vial Sliding Scale -) 1 vial SQ Q6HPO [facility]; Protocol Last Admin: 07/21/18 06:26 Dose: 6 units Insulin Detemir (Levemir Vial) 17 units SQ AM [facility] Levothyroxine Sodium (Synthroid -) 50 mcg PO DAILY@0700 [facility] Last Admin: 07/21/18 06:12 Dose: 50 mcg Losartan Potassium (Cozaar -) 25 mg PO DAILY [facility] Last Admin: 07/21/18 10:23 Dose: 25 mg Pantoprazole Sodium (Protonix Iv) 40 mg IVPUSH DAILY [facility] Last Admin: 07/21/18 10:23 Dose: 40 mg Polyethylene Glycol (Miralax (For Daily Use) -) 17 gm PO BID [facility] Last Admin: 07/21/18 10:24 Dose: 17 gm Rivaroxaban (Xarelto -) 20 mg PO DAILY@1800 [facility] Last Admin: 07/20/18 17:47 Dose: 20 mg Senna (Senna -) 1 tab PO HS [facility] Last Admin: 07/20/18 22:31 Dose: 1 tab - Objective Vital Signs: Vital Signs Temperature 98.6 F 07/21/18 05:43 Pulse Rate 62 07/21/18 05:43 Respiratory Rate 18 07/21/18 05:43 Blood Pressure 125/50 L 07/21/18 05:43 O2 Sat by Pulse Oximetry (%) 99 07/20/18 20:52 Constitutional: Yes: No Distress, Calm Cardiovascular: Yes: S1, S2 Respiratory: Yes: Regular, CTA Bilaterally Gastrointestinal: Yes: Normal Bowel Sounds, Soft Musculoskeletal: Yes: WNL Extremities: Yes: Other Neurological: Yes: Alert, Other Psychiatric: Yes: Alert Labs: CBC, BMP 07/21/18 05:30 07/21/18 05:30 INR, PTT INR 1.28 (0.83-1.09) H 07/18/18 05:00 Fibrinogen 423.0 mg/dL (238-498) 07/12/18 05:30 Assessment/Plan septic shock Systolic / Diastolic CHF COPD HTN HLD CAD PPM Atrial Fibrillation DM Chronic venous insufficiency BPH s/p TURP CKD Anemia plan continue abx continue current mgmt vanco levels wound care rest as per the team physio
--- NOTE | 2018-07-21 12:04 | PN ---
Progress Note, Physician History of Present Illness: PULMONARY AWAKE,CONFUSED,COMFORTABLE,-RESP DISTRESS - Current Medication List Current Medications: Active Medications Al Hydroxide/Mg Hydroxide (Mylanta Oral Suspension -) 30 ml PO Q6H PRN PRN Reason: INDIGESTION Albuterol/Ipratropium (Duoneb -) 1 amp NEB RQID [facility] Last Admin: 07/21/18 11:32 Dose: 1 amp Carvedilol (Coreg -) 3.125 mg NGT BID [facility] Last Admin: 07/21/18 10:23 Dose: 3.125 mg Docusate Sodium (Colace -) 100 mg PO TID [facility] Last Admin: 07/21/18 06:12 Dose: 100 mg Ferrous Sulfate (Feosol -) 325 mg PO DAILY [facility] Last Admin: 07/21/18 10:23 Dose: 325 mg Vancomycin HCl 1,250 mg/ (Dextrose) 250 mls @ 166.667 mls/hr IVPB Q24H [facility]; Protocol Last Admin: 07/20/18 15:03 Dose: 166.667 mls/hr Piperacillin Sod/Tazobactam (Sod 3.375 gm/ Dextrose) 50 mls @ 100 mls/hr IVPB Q8H-IV [facility]; Protocol Last Admin: 07/21/18 10:23 Dose: 100 mls/hr Insulin Aspart (Novolog Vial Sliding Scale -) 1 vial SQ Q6HPO [facility]; Protocol Last Admin: 07/21/18 06:26 Dose: 6 units Insulin Detemir (Levemir Vial) 17 units SQ AM [facility] Levothyroxine Sodium (Synthroid -) 50 mcg PO DAILY@0700 [facility] Last Admin: 07/21/18 06:12 Dose: 50 mcg Losartan Potassium (Cozaar -) 25 mg PO DAILY [facility] Last Admin: 07/21/18 10:23 Dose: 25 mg Pantoprazole Sodium (Protonix Iv) 40 mg IVPUSH DAILY [facility] Last Admin: 07/21/18 10:23 Dose: 40 mg Polyethylene Glycol (Miralax (For Daily Use) -) 17 gm PO BID [facility] Last Admin: 07/21/18 10:24 Dose: 17 gm Rivaroxaban (Xarelto -) 20 mg PO DAILY@1800 [facility] Last Admin: 07/20/18 17:47 Dose: 20 mg Senna (Senna -) 1 tab PO HS [facility] Last Admin: 07/20/18 22:31 Dose: 1 tab - Objective Vital Signs: Vital Signs Temperature 98.6 F 07/21/18 05:43 Pulse Rate 62 07/21/18 05:43 Respiratory Rate 18 07/21/18 05:43 Blood Pressure 125/50 L 07/21/18 05:43 O2 Sat by Pulse Oximetry (%) 99 07/20/18 20:52 Constitutional: Yes: Well Nourished, Calm, Other (CONFUSED) Eyes: Yes: WNL HENT: Yes: WNL Neck: Yes: WNL Cardiovascular: Yes: Pulse Irregular, S1 Respiratory: Yes: Diminished Gastrointestinal: Yes: Normal Bowel Sounds, Soft Extremities: Yes: WNL Edema: Yes Labs: CBC, BMP 07/21/18 05:30 07/21/18 05:30 INR, PTT INR 1.28 (0.83-1.09) H 07/18/18 05:00 Fibrinogen 423.0 mg/dL (238-498) 07/12/18 05:30 Problem List - Problems (1) Atrial fibrillation with controlled ventricular rate Code(s): I48.91 - UNSPECIFIED ATRIAL FIBRILLATION (2) CAD (coronary artery disease) Code(s): I25.10 - ATHSCL HEART DISEASE OF [place] CORONARY ARTERY W/O ANG PCTRS Qualifiers: Coronary Disease-Associated Artery/Lesion type: [place] artery [place] vs. transplanted heart: [place] heart Associated angina: without angina Qualified Code(s): I25.10 - Atherosclerotic heart disease of [place] coronary artery without angina pectoris (3) CHF (congestive heart failure) Code(s): I50.9 - HEART FAILURE, UNSPECIFIED Qualifiers: Heart failure type: combined systolic and diastolic Heart failure chronicity: chronic Qualified Code(s): I50.42 - Chronic combined systolic ( congestive) and diastolic (congestive) heart failure (4) COPD (chronic obstructive pulmonary disease) Code(s): J44.9 - CHRONIC OBSTRUCTIVE PULMONARY DISEASE, UNSPECIFIED Qualifiers: COPD type: unspecified COPD Qualified Code(s): J44.9 - Chronic obstructive pulmonary disease, unspecified (5) Chronic anticoagulation Code(s): Z79.01 - [facility] (CURRENT) USE OF ANTICOAGULANTS (6) Hypercholesterolemia Code(s): E78.00 - PURE HYPERCHOLESTEROLEMIA, UNSPECIFIED (7) Septic shock Code(s): A41.9 - SEPSIS, UNSPECIFIED ORGANISM; R65.21 - SEVERE SEPSIS WITH SEPTIC SHOCK (8) Sick sinus syndrome Code(s): I49.5 - SICK SINUS SYNDROME (9) ASHD (arteriosclerotic heart disease) Code(s): I25.10 - ATHSCL HEART DISEASE OF [place] CORONARY ARTERY W/O ANG PCTRS (10) COPD (chronic obstructive pulmonary disease) Code(s): J44.9 - CHRONIC OBSTRUCTIVE PULMONARY DISEASE, UNSPECIFIED Qualifiers: COPD type: unspecified COPD Qualified Code(s): J44.9 - Chronic obstructive pulmonary disease, unspecified (11) Diabetes mellitus Code(s): E11.9 - TYPE 2 DIABETES MELLITUS WITHOUT COMPLICATIONS (12) Dyspnea Code(s): R06.00 - DYSPNEA, UNSPECIFIED Qualifiers: Dyspnea type: dyspnea on exertion Qualified Code(s): R06.09 - Other forms of dyspnea (13) IDDM (insulin dependent diabetes mellitus) Code(s): E11.9 - TYPE 2 DIABETES MELLITUS WITHOUT COMPLICATIONS; Z79.4 - [facility] (CURRENT) USE OF INSULIN (14) Peripheral edema Code(s): R60.9 - EDEMA, UNSPECIFIED (15) Sleep apnea Code(s): G47.30 - SLEEP APNEA, UNSPECIFIED Qualifiers: Sleep apnea type: unspecified type Qualified Code(s): G47.30 - Sleep apnea , unspecified (16) Pneumonia Code(s): J18.9 - PNEUMONIA, UNSPECIFIED ORGANISM (17) Presence of permanent cardiac pacemaker Code(s): Z95.0 - PRESENCE OF CARDIAC PACEMAKER Assessment/Plan ASSESSMENT AND PLAN: Acute Hypoxic and Hypercapneic Respiratory Failure improving Pneumonia Cellulitis Staph Bacteremia Septic Shock resolving Lactic Acidosis resolved Acute Kidney Injury improving Elevated LFTs likely Ischemic Injury LV Systolic Dysfunction Atrial Fibrillation CAD HTN DM Hyperlipidemia - ABX - monitor urine output, creatinine - O2 to keep Spo2 >90% - monitor lytes - anticoagulation - DVT/GI prophylaxis - NIPPV QHS and PRN - Aspiration precautions DR STAFFORD
[2018-07-21] MEDS ORDERED: PT OWN MED DRAWER 7, Y5N ONE ×2 (13:35→15:44)
[2018-07-21] MEDS: VANCOMYCIN 1,250 MG in DEXTROSE 5%-WATER - 250 ML IVPB SCH (16:28)
--- NOTE | 2018-07-21 16:32 | PN ---
Teaching Attending Note Name of Resident: Gwen Richardson ATTENDING PHYSICIAN STATEMENT I saw and evaluated the patient. I reviewed the resident's note and discussed the case with the resident. I agree with the resident's findings and plan as documented. SUBJECTIVE: No pain , no SOB. limited hx OBJECTIVE: Awake, alert and cooperative. confabulate CV: RRR, 3/6 SM RUSB and LUSB Lungs: CTAB Abd: soft, NT, ND , NL BS. Ext:b/l leg wounds with imporved surrounding erythema . minimal edema on feet ASSESSMENT AND PLAN: 83 y/o man with h/o CAD, s/p stents, permanent A fib, Systolic heart failure, HTN, HLP, DM , CKD , Anemia, COPD,recent admission for acute CHF exacerbation who was sent from [place] for LE pain and was found to have septic shock form LE cellulites, and went into hypoxic resp failure 1- Hypoxic resp failure, s/p extubation 2- s/p septic shock 3- Acute systolic and diastolic heart failure: improved 4- LE cellulites 5- Transaminitis 6- sick euthyroid syndrome 7- DM . 8- Hypernatremia Plan; - diurses PRN . Na improved - cont O2 via NC - cont losartan and BB . - cont abx - cont synthroid - increase insulin - monitor Na. replete - TFts noted - monitor LFTs - cont puree diet with honey thick liquids - replete Phos Dispo: HLOC
[2018-07-21] MEDS ORDERED: NAPH,MB-DB/K PH,MBDB POWDER PACKET PO ONE (16:45)
--- NOTE | 2018-07-21 18:10 | PN ---
Physical Exam: SUBJECTIVE: Patient seen and examined this morning at bedside. No new complaints ; Denies fevers, chills, chest pain, SOB. No acute overnight events as per nursing. OBJECTIVE: Vital Signs Period Temp Pulse Resp BP Sys/Kuo Pulse Ox Last 24 Hr 98.1 F-98.6 F 61-78 18-20 113-131/50-70 99-99 GENERAL: A&Ox3, NAD, lying comfortably watching television HEAD: NCAT NECK: No JVD LUNGS: Scattered Rhonchi HEART: Regular rate and rhythm, normal S1 and S2, LLSB Murmur ABDOMEN: Soft, nontender, not distended, normoactive bowel sounds BACK: Stage 2 ulcer superior to the gluteal fold without active drainage or surrounding erythema EXTREMITIES: 2+ pulses, No edema. Multiple, Lower extremity wounds without active drainage, Erythema and warmth continue to improve SKIN: Warm, dry Laboratory Results - last 24 hr 07/20/18 07/21/18 07/21/18 23:10 05:30 05:30 WBC 10.1 H RBC 2.53 L Hgb 8.5 L Hct 26.6 L MCV 105.2 H MCH 33.5 MCHC 31.8 L RDW 18.9 H Plt Count 261 MPV 9.3 Absolute Neuts (auto) 7.8 Neutrophils % 77.5 Lymphocytes % 8.9 D Monocytes % 7.3 Eosinophils % 5.6 H D Basophils % 0.7 D Nucleated RBC % 0 Sodium 143 Potassium 4.5 Chloride 108 H Carbon Dioxide 30 Anion Gap 5 L BUN 22 H Creatinine 0.9 Creat Clearance w eGFR > 60 POC Glucometer 201 Random Glucose 237 H Calcium 8.3 L Phosphorus 2.2 L Magnesium 2.3 Total Bilirubin 0.6 AST 69 H ALT 80 H Alkaline Phosphatase 152 H Total Protein 5.7 L Albumin 2.2 L Microbiology 07/11/18 03:30 Leg - Right Lower Gram Stain - Final 07/11/18 03:30 Leg - Right Lower Wound Culture - Preliminary Pseudomonas Aeruginosa Klebsiella Oxytoca Mr S Aureus Enterococcus Faecalis 07/10/18 11:15 Blood - Peripheral Venous Blood Culture - Final NO GROWTH AFTER 5 DAYS INCUBATION 07/10/18 11:00 Blood - Peripheral Venous Blood Culture - Final NO GROWTH AFTER 5 DAYS INCUBATION 07/10/18 12:20 Urine - Urine Clean Catch Urine Culture - Final Staphylococcus Warneri Active Medications Al Hydroxide/Mg Hydroxide (Mylanta Oral Suspension -) 30 ml PO Q6H PRN PRN Reason: INDIGESTION Albuterol/Ipratropium (Duoneb -) 1 amp NEB RQID [facility] Last Admin: 07/21/18 16:07 Dose: 1 amp Carvedilol (Coreg -) 3.125 mg NGT BID [facility] Last Admin: 07/21/18 10:23 Dose: 3.125 mg Docusate Sodium (Colace -) 100 mg PO TID [facility] Last Admin: 07/21/18 13:37 Dose: 100 mg Ferrous Sulfate (Feosol -) 325 mg PO DAILY [facility] Last Admin: 07/21/18 10:23 Dose: 325 mg Vancomycin HCl 1,250 mg/ (Dextrose) 250 mls @ 166.667 mls/hr IVPB Q24H [facility]; Protocol Last Admin: 07/21/18 16:28 Dose: 166.667 mls/hr Piperacillin Sod/Tazobactam (Sod 3.375 gm/ Dextrose) 50 mls @ 100 mls/hr IVPB Q8H-IV [facility]; Protocol Last Admin: 07/21/18 10:23 Dose: 100 mls/hr Insulin Aspart (Novolog Vial Sliding Scale -) 1 vial SQ Q6HPO [facility]; Protocol Last Admin: 07/21/18 12:01 Dose: Not Given Insulin Detemir (Levemir Vial) 17 units SQ AM [facility] Levothyroxine Sodium (Synthroid -) 50 mcg PO DAILY@0700 [facility] Last Admin: 07/21/18 06:12 Dose: 50 mcg Losartan Potassium (Cozaar -) 25 mg PO DAILY [facility] Last Admin: 07/21/18 10:23 Dose: 25 mg Pantoprazole Sodium (Protonix Iv) 40 mg IVPUSH DAILY [facility] Last Admin: 07/21/18 10:23 Dose: 40 mg Polyethylene Glycol (Miralax (For Daily Use) -) 17 gm PO BID [facility] Last Admin: 07/21/18 10:24 Dose: 17 gm Rivaroxaban (Xarelto -) 20 mg PO DAILY@1800 [facility] Last Admin: 07/20/18 17:47 Dose: 20 mg Senna (Senna -) 1 tab PO HS [facility] Last Admin: 07/20/18 22:31 Dose: 1 tab IMAGING: -CXR (07/10): The prior study of 06/09/2018, again is a scoliosis with convexity to the right, weak inspiration, multi lead pacemaker, distended bowel in the upper abdomen, previous right shoulder surgery and there are increased left hemithorax markings compatible with some atelectasis and/or infiltrate. Follow- up recommended. -CXR (07/11): Since the prior study of 07/10/2018, there appears to be major consolidation in the left hemithorax with some sparing at the left base. There is a prominent mediastinum with pacemaker and distended bowel in the abdomen. The right lung is clear. There is a scoliosis with convexity to the right. There are degenerative spine and shoulder changes. There are left shoulder calcifications. A follow-up study is suggested with deep inspiration to clarify the left hemithorax changes. The sparing of the left base is unusual and one must make sure this is not a subtle pneumothorax. Again follow-up imaging is suggested -CXR (07/11): Since the prior study of 07/11/2018 at 0704 hours, the left hemithorax is slightly better aerated with still some infiltrate/atelectasis and no sign of a gross pneumothorax. The remainder the study is unchanged -CXR (07/11): Since 1003 hours, new right jugular line has been inserted and the tip is in the right atrium. The remainder the study is unchanged. There is no sign of a pneumothorax. -CXR (07/12): A single AP view of the chest reveals motion artifact, weak inspiration, chin artifact, right jugular line with tip in junction of SVC and right atrium, left-sided double lead pacemaker, sclerotic knob, previous right humeral fracture stabilization with hardware and some congestive changes with atelectasis or infiltrate on the left. There is bowel in the right upper quadrant. Since the prior exam of 07/11/2018, there is no significant change. -CXR (07/12): An AP chest reveals an endotracheal tube, right jugular line and pacemaker. There is a large heart, sclerotic unfolded aorta and congestive changes with bilateral effusions with left base infiltrate or atelectasis. The pulmonary and pleural changes have increased and the endotracheal tube is new since 07/12/2018. An OG tube is not easily delineated in this study. -CXR (07/13): No significant change -CXR (07/14): Since 07/13/2018, are progressive bilateral pulmonary and pleural changes. The endotracheal tube, right jugular line, pacemaker and previous right humeral stabilization with hardware is again noted. -CXR (07/15): Improvement. Residual fluid and atelectasis left base. -CXR (07/17): Slight improvement since 07/15/2018. -CXR (07/18): ET tube removed. Progressive pulmonary and pleural findings. -CXR (07/19): No evidence of pneumothorax. Resolved CHF. Shallow inspiration with bilateral basilar atelectatic changes. Small residual pleural effusions. -Liver US: Right pleural effusion and trace ascites. Thick walled gallbladder with biliary sludge. -DUPLEX US: No evidence of deep venous thrombosis. -CT Head without contrast: No evidence of acute intracranial pathology. -EKG: Ventricular-paced rhythm, VR 60, QTc 614 -ECHO: Technically limited, LV Systolic function is moderately reduced, LV Is not well visualized, RA and LA mildly dilated, Mild to Mod TR, Mild MR, RV systolic pressure normal, Septal motion is consistent with conduction abnormality, Regional wall motion abnormalities cannot be excluded ASSESSMENT/PLAN: 83 y/o M with PMHx of CHF, COPD, HTN, HLD, CAD (s/p stenting x7 and pacemaker), Atrial Fibrillation, DM, chronic venous insufficiency, BPH was BIBEMS from [facility] for AMS and was admitted to the ICU for severe sepsis due to Cellulitus. #Septic Shock -Likely due B/L lower extremity cellulitis, Wound cultures noted above -Intubated (07/12), Extubated (07/17), Can resume Bipap HS and PRN; Saturating > 92% on Nasal canulla -Central Line D/C'ed (07/11-07/18) -Continue Zosyn (Started on 07/10), Vanco (started on 07/12) -Blood, urine culture noted above -Chest PT -Contact isolation precautions -ID (Dr. Thomas), Vascular surgery (Dr. Estrada), Cardiology (Dr. Peterson), Podiatry ( Dr. Greene) consulted, Appreciate recs #Dysphagia -Speech and swallow consulted, Appreciate Rec's. -Trial Magic cup tolerated; Dysphagia puree started today #Coffee ground gastric aspirate -Likely due to acute gastritis -Hgb Reached 6.5, Given 1 unit pRBCs (07/13) -FOBT Positive -GI Consulted, Appreciate Rec's, Protonix 40mg IVPB daily -Conservative management without endoscopic intervention #Transaminitis -LFTs trending down; Continue to trend -Liver US noted above -Hepatitis panel #Hyperkalemia -Resolved; Continue to monitor #Elevated TSH -Likely due to Severe Sepsis; Consider Euthyroid Sick Syndrome, Less likely Myxedema coma -Endocrinology (Dr. Duron) Consulted, Appreciate Rec's -Synthroid PO 50mcg -Repeat labs noted above #AFib -Xarelto, Coreg #DM -ISS, BGMs ACTID -Start Levemir 15u AM -A1c 6.8% -Hold Oral hypoglycemics #HTN -Losartan, Coreg #FEN -PO fluids -Monitor for Hyperkalemia -Dysphagia Puree diet #PPx -DVT: Xarelto Dispo: Transfer to Tele CODE STATUS: DNR Visit type - Emergency Visit Emergency Visit: Yes ED Registration Date: 07/10/18 Care time: The patient presented to the Emergency Department on the above date and was hospitalized for further evaluation of their emergent condition. - New Patient This patient is new to me today: No - Critical Care Critical Care patient: No - Discharge Referral Referred to [facility] Med P.C.: No
[2018-07-21] MEDS: RIVAROXABAN 20 MG TABLET PO SCH (18:17)
[2018-07-21] MEDS: SENNOSIDES 8.6MG TABLET (FP) PO SCH (22:18)
[2018-07-22] MEDS: INSULIN SLIDING SCALE (NOVOLOG) 1 VIAL SQ SCH ×4 (00:25→17:08)
[2018-07-22] MEDS ORDERED: DEXTROSE 5%-WATER - 50 ML IVPB ONE ×3 (01:20→16:57)
[2018-07-22] MEDS ORDERED: PIPERACILLIN/TAZOBACTAM 3.375 GM VIAL IVPB ONE ×3 (01:20→16:57)
[2018-07-22] MEDS: PIPERACILLIN/TAZOB 3.375 GM 3.375 GM in DEXTROSE 5%-WATER - 50 ML IVPB SCH ×3 (01:40→17:08)
[2018-07-22] MEDS: LEVOTHYROXINE NA 50 MCG TABLET (FP) PO SCH (06:40)
[2018-07-22] MEDS: DOCUSATE SODIUM 100 MG CAPSULE (FP) PO SCH ×3 (06:41→21:43)
[2018-07-22] MEDS: INSULIN (LEVEMIR) 100 UNITS/ML UNITS SQ SCH (06:41)
[2018-07-22] MEDS: ALBUTEROL SO4 2.5/IPRATROPIUM 0.5 INH SOL 3 ML VIAL.NEB. NEB SCH ×4 (07:25→19:55)
[2018-07-22 08:27] LABS: BASO % 0.8 % (0-2.0); EOS % 7.2 % (0-4.5); HEMATOCRIT 23.3 % (35.4-49); HEMOGLOBIN 7.5 GM/dL (11.7-16.9); LYMPH % 8.7 % (8-40); MCH 33.3 pg (25.7-33.7); MCHC 32.1 g/dl (32.0-35.9); MEAN CELL VOLUME 103.8 fl (80-96); MEAN PLT VOLUME 8.9 fl (7.5-11.1); MONO % 7.8 % (3.8-10.2); NEUT % 75.5 % (42.8-82.8); PLATELET COUNT 273 K/MM3 (134-434); RBC 2.25 M/mm3 (4.00-5.60); RDW 18.4 % (11.9-15.9); WHITE BLOOD COUNT 9.6 K/mm3 (4.0-10.0)
[2018-07-22 08:44] LABS: ALBUMIN 2.1 g/dl (3.4-5.0); ALK PHOS 125 U/L (45-117); ANION GAP 6 MMOL/L (8-16); BILIRUBIN,TOTAL 0.7 mg/dL (0.2-1); BLOOD UREA NITROGEN 21 mg/dL (7-18); CALCIUM 7.7 mg/dL (8.5-10.1); CHLORIDE 109 mmol/L (98-107); CO2 28 mmol/L (21-32); CREATININE 0.8 mg/dL (0.55-1.3); GLUCOSE,RANDOM 92 mg/dL (74-106); PHOSPHOROUS 2.2 mg/dL (2.5-4.9); POTASSIUM 4.1 mmol/L (3.5-5.1); SGOT/AST 47 U/L (15-37); SGPT/ALT 62 U/L (13-61); SODIUM 143 mmol/L (136-145); TOT PROT 5.2 g/dl (6.4-8.2)
[2018-07-22] MEDS ORDERED: NAPH,MB-DB/K PH,MBDB POWDER PACKET PO ONE ×2 (09:26→09:45)
--- NOTE | 2018-07-22 09:37 | PN ---
Teaching Attending Note Name of Resident: Skyler Taylor ATTENDING PHYSICIAN STATEMENT I saw and evaluated the patient. I reviewed the resident's note and discussed the case with the resident. I agree with the resident's findings and plan as documented. SUBJECTIVE: No fever or chills. No abd pain, NO SOB. OBJECTIVE: Awake, alert and cooperative. confabulate CV: RRR, 3/6 SM RUSB and LUSB Lungs: CTAB Abd: soft, NT, ND , NL BS. Ext:b/l leg wounds with green discharge and minimal surrounding erythema.worsening edema n feet 2+ ASSESSMENT AND PLAN: 83 y/o man with h/o CAD, s/p stents, permanent A fib, Systolic heart failure, HTN, HLP, DM , CKD , Anemia, COPD,recent admission for acute CHF exacerbation who was sent from [place] for LE pain and was found to have septic shock form LE cellulites, and went into hypoxic resp failure 1- Hypoxic resp failure, s/p extubation 2- s/p septic shock 3- Acute systolic and diastolic heart failure: improved 4- LE cellulites 5- Transaminitis 6- sick euthyroid syndrome 7- DM . 8- Hypernatremia 9- gastritis , and acute anemia Plan; - resume po lasix at 20 mg ( home dose 40 ) , will increase as tolerated - cont vanco and zosyn and check vanco trough this afternoon - cont BB , and losartan - change protonix to po - HB dropped , will cont to monitor , no signs of cici bleeding - cont current dose of insulin - cont synthroid - cont puree diet with honey thick liquids - replete Phos Dispo: HLOC
[2018-07-22] MEDS: FERROUS SO4 325 MG TABLET (FP) PO SCH (10:30)
[2018-07-22] MEDS: LOSARTAN POTASSIUM 25 MG TABLET PO SCH (10:30)
[2018-07-22] MEDS: PANTOPRAZOLE 40 MG TABLET (FP) PO SCH (10:30)
[2018-07-22] MEDS: CARVEDILOL 3.125 MG TABLET (FP) NGT SCH ×2 (10:30→21:46)
[2018-07-22] MEDS: FUROSEMIDE 20 MG TABLET (FP) PO SCH (10:30)
[2018-07-22] MEDS: POLYETHYLENE GLYCOL 3350 119 GM BTL PO SCH ×2 (10:31→21:43)
--- NOTE | 2018-07-22 10:42 | PN ---
Progress Note, Physician History of Present Illness: Remains on NC, tolerating dysphagia diet, no events on telemetry. - Current Medication List Current Medications: Active Medications Al Hydroxide/Mg Hydroxide (Mylanta Oral Suspension -) 30 ml PO Q6H PRN PRN Reason: INDIGESTION Albuterol/Ipratropium (Duoneb -) 1 amp NEB RQID [facility] Last Admin: 07/22/18 07:25 Dose: 1 amp Carvedilol (Coreg -) 3.125 mg NGT BID [facility] Last Admin: 07/22/18 10:30 Dose: 3.125 mg Docusate Sodium (Colace -) 100 mg PO TID [facility] Last Admin: 07/22/18 06:41 Dose: Not Given Ferrous Sulfate (Feosol -) 325 mg PO DAILY [facility] Last Admin: 07/22/18 10:30 Dose: 325 mg Furosemide (Lasix -) 20 mg PO DAILY [facility] Last Admin: 07/22/18 10:30 Dose: 20 mg Vancomycin HCl 1,250 mg/ (Dextrose) 250 mls @ 166.667 mls/hr IVPB Q24H [facility]; Protocol Last Admin: 07/21/18 16:28 Dose: 166.667 mls/hr Piperacillin Sod/Tazobactam (Sod 3.375 gm/ Dextrose) 50 mls @ 100 mls/hr IVPB Q8H-IV [facility]; Protocol Last Admin: 07/22/18 10:28 Dose: 100 mls/hr Insulin Aspart (Novolog Vial Sliding Scale -) 1 vial SQ Q6HPO [facility]; Protocol Last Admin: 07/22/18 06:41 Dose: Not Given Insulin Detemir (Levemir Vial) 17 units SQ AM [facility] Last Admin: 07/22/18 06:41 Dose: 17 units Levothyroxine Sodium (Synthroid -) 50 mcg PO DAILY@0700 [facility] Last Admin: 07/22/18 06:40 Dose: 50 mcg Losartan Potassium (Cozaar -) 25 mg PO DAILY [facility] Last Admin: 07/22/18 10:30 Dose: 25 mg Pantoprazole Sodium (Protonix -) 40 mg PO DAILY [facility] Last Admin: 07/22/18 10:30 Dose: 40 mg Polyethylene Glycol (Miralax (For Daily Use) -) 17 gm PO BID [facility] Last Admin: 07/22/18 10:31 Dose: Not Given Rivaroxaban (Xarelto -) 20 mg PO DAILY@1800 [facility] Last Admin: 07/21/18 18:17 Dose: 20 mg Senna (Senna -) 1 tab PO HS [facility] Last Admin: 07/21/18 22:18 Dose: Not Given - Objective Vital Signs: Vital Signs Temperature 98.5 F 07/22/18 06:00 Pulse Rate 61 07/22/18 06:00 Respiratory Rate 20 07/22/18 06:00 Blood Pressure 108/58 L 07/22/18 06:00 O2 Sat by Pulse Oximetry (%) 99 07/21/18 22:00 Constitutional: Yes: No Distress, Calm Neck: Yes: Supple Cardiovascular: Yes: Regular Rate and Rhythm, Murmur (2/6) Respiratory: Yes: Regular, Diminished, On Nasal O2 Gastrointestinal: Yes: Normal Bowel Sounds, Soft Edema: No Labs: CBC, BMP 07/22/18 08:00 07/22/18 08:00 INR, PTT INR 1.28 (0.83-1.09) H 07/18/18 05:00 Fibrinogen 423.0 mg/dL (238-498) 07/12/18 05:30 Problem List - Problems (1) Abnormal liver function tests Code(s): R94.5 - ABNORMAL RESULTS OF LIVER FUNCTION STUDIES (2) CAD (coronary artery disease) Code(s): I25.10 - ATHSCL HEART DISEASE OF [place] CORONARY ARTERY W/O ANG PCTRS Qualifiers: Coronary Disease-Associated Artery/Lesion type: [place] artery [place] vs. transplanted heart: [place] heart Associated angina: without angina Qualified Code(s): I25.10 - Atherosclerotic heart disease of [place] coronary artery without angina pectoris (3) CHF (congestive heart failure) Code(s): I50.9 - HEART FAILURE, UNSPECIFIED Qualifiers: Heart failure type: combined systolic and diastolic Heart failure chronicity: chronic Qualified Code(s): I50.42 - Chronic combined systolic ( congestive) and diastolic (congestive) heart failure (4) Hypercholesterolemia Code(s): E78.00 - PURE HYPERCHOLESTEROLEMIA, UNSPECIFIED (5) Hypothyroid Code(s): E03.9 - HYPOTHYROIDISM, UNSPECIFIED Qualifiers: Hypothyroidism type: unspecified Qualified Code(s): E03.9 - Hypothyroidism , unspecified (6) Presence of permanent cardiac pacemaker Code(s): Z95.0 - PRESENCE OF CARDIAC PACEMAKER (7) Septic shock Code(s): A41.9 - SEPSIS, UNSPECIFIED ORGANISM; R65.21 - SEVERE SEPSIS WITH SEPTIC SHOCK (8) Sick sinus syndrome Code(s): I49.5 - SICK SINUS SYNDROME (9) History of percutaneous coronary intervention Code(s): Z98.890 - OTHER SPECIFIED POSTPROCEDURAL STATES (10) IDDM (insulin dependent diabetes mellitus) Code(s): E11.9 - TYPE 2 DIABETES MELLITUS WITHOUT COMPLICATIONS; Z79.4 - HALFWAY (CURRENT) USE OF INSULIN (11) Sleep apnea Code(s): G47.30 - SLEEP APNEA, UNSPECIFIED Qualifiers: Sleep apnea type: unspecified type Qualified Code(s): G47.30 - Sleep apnea , unspecified (12) Atrial fibrillation with controlled ventricular rate Code(s): I48.91 - UNSPECIFIED ATRIAL FIBRILLATION (13) Chronic anticoagulation Code(s): Z79.01 - INDUSTRIAL FURNACE FABRICATOR (CURRENT) USE OF ANTICOAGULANTS Assessment/Plan 05/02/2018 Echocardiography revealed systolic LV dysfunction with LVEF 40-45%, moderate (mean gradient of 27.7 and peak gradient 46 mmHg, LYNETTE of 0.78 cm2), mild MR, mild to moderate TR 1. Acute Hypoxic and Hypercapneic Respiratory failure improving 2. Post septic shock - PNA, cellulitis, staph bacteremia 3. Acute on chronic LV failure class II NYHA classification LV failure referable to systolic/diastolic heart failure resolving 4. CAD s/p PCI/stent, angina pectoris 5. Persistent AF [id number] score of 6 on NOAC 6. AV block s/p PPM 7. HTN 8. Hypercholesterolemia 9. DM 10. COPD 11. CKD 12. Anemia 13. Hypothyroidism 14. BPH s/p TURP 15. Severe OSAS (RDI 108 per hour / desaturation to 72%) 16. Shock liver resolving PLAN: 1. Complete antibiotic course, BD, taper Fio2 to keep Spo2 >90%, GI protection 2. Xarelto 20 qd, carvedilol 3.125 bid, losartan 25 qd with uptitration as hemodynamics tolerate. Lipitor held pending resolution of LFT abnl 3. Resumed oral diuresis with monitor renal function and electrolytes
--- NOTE | 2018-07-22 11:36 | PN ---
Progress Note, Physician History of Present Illness: pulmonary alert,still confused,less dyspneic - Current Medication List Current Medications: Active Medications Al Hydroxide/Mg Hydroxide (Mylanta Oral Suspension -) 30 ml PO Q6H PRN PRN Reason: INDIGESTION Albuterol/Ipratropium (Duoneb -) 1 amp NEB RQID [facility] Last Admin: 07/22/18 07:25 Dose: 1 amp Carvedilol (Coreg -) 3.125 mg NGT BID [facility] Last Admin: 07/22/18 10:30 Dose: 3.125 mg Collagenase (Santyl -) 1 applic TP DAILY [facility]; Protocol Docusate Sodium (Colace -) 100 mg PO TID [facility] Last Admin: 07/22/18 06:41 Dose: Not Given Ferrous Sulfate (Feosol -) 325 mg PO DAILY [facility] Last Admin: 07/22/18 10:30 Dose: 325 mg Furosemide (Lasix -) 20 mg PO DAILY [facility] Last Admin: 07/22/18 10:30 Dose: 20 mg Vancomycin HCl 1,250 mg/ (Dextrose) 250 mls @ 166.667 mls/hr IVPB Q24H [facility]; Protocol Last Admin: 07/21/18 16:28 Dose: 166.667 mls/hr Piperacillin Sod/Tazobactam (Sod 3.375 gm/ Dextrose) 50 mls @ 100 mls/hr IVPB Q8H-IV [facility]; Protocol Last Admin: 07/22/18 10:28 Dose: 100 mls/hr Insulin Aspart (Novolog Vial Sliding Scale -) 1 vial SQ Q6HPO [facility]; Protocol Last Admin: 07/22/18 06:41 Dose: Not Given Insulin Detemir (Levemir Vial) 17 units SQ AM [facility] Last Admin: 07/22/18 06:41 Dose: 17 units Levothyroxine Sodium (Synthroid -) 50 mcg PO DAILY@0700 [facility] Last Admin: 07/22/18 06:40 Dose: 50 mcg Losartan Potassium (Cozaar -) 25 mg PO DAILY [facility] Last Admin: 07/22/18 10:30 Dose: 25 mg Pantoprazole Sodium (Protonix -) 40 mg PO DAILY [facility] Last Admin: 07/22/18 10:30 Dose: 40 mg Polyethylene Glycol (Miralax (For Daily Use) -) 17 gm PO BID [facility] Last Admin: 07/22/18 10:31 Dose: Not Given Rivaroxaban (Xarelto -) 20 mg PO DAILY@1800 [facility] Last Admin: 07/21/18 18:17 Dose: 20 mg Senna (Senna -) 1 tab PO HS [facility] Last Admin: 07/21/18 22:18 Dose: Not Given - Objective Vital Signs: Vital Signs Temperature 98.2 F 07/22/18 10:00 Pulse Rate 62 07/22/18 10:00 Respiratory Rate 18 07/22/18 10:00 Blood Pressure 124/67 07/22/18 10:00 O2 Sat by Pulse Oximetry (%) 100 07/22/18 10:00 Constitutional: Yes: Well Nourished, Calm Eyes: Yes: WNL HENT: Yes: WNL Neck: Yes: WNL Cardiovascular: Yes: Regular Rate and Rhythm, S1, S2 Respiratory: Yes: Diminished Gastrointestinal: Yes: Normal Bowel Sounds, Soft Extremities: Yes: WNL Edema: No Labs: CBC, BMP 07/22/18 08:00 07/22/18 08:00 INR, PTT INR 1.28 (0.83-1.09) H 07/18/18 05:00 Fibrinogen 423.0 mg/dL (238-498) 07/12/18 05:30 Problem List - Problems (1) Atrial fibrillation with controlled ventricular rate Code(s): I48.91 - UNSPECIFIED ATRIAL FIBRILLATION (2) CAD (coronary artery disease) Code(s): I25.10 - ATHSCL HEART DISEASE OF [place] CORONARY ARTERY W/O ANG PCTRS Qualifiers: Coronary Disease-Associated Artery/Lesion type: [place] artery [place] vs. transplanted heart: [place] heart Associated angina: without angina Qualified Code(s): I25.10 - Atherosclerotic heart disease of [place] coronary artery without angina pectoris (3) CHF (congestive heart failure) Code(s): I50.9 - HEART FAILURE, UNSPECIFIED Qualifiers: Heart failure type: combined systolic and diastolic Heart failure chronicity: chronic Qualified Code(s): I50.42 - Chronic combined systolic ( congestive) and diastolic (congestive) heart failure (4) COPD (chronic obstructive pulmonary disease) Code(s): J44.9 - CHRONIC OBSTRUCTIVE PULMONARY DISEASE, UNSPECIFIED Qualifiers: COPD type: unspecified COPD Qualified Code(s): J44.9 - Chronic obstructive pulmonary disease, unspecified (5) Chronic anticoagulation Code(s): Z79.01 - TECHNOLOGY INTEGRATION SPECIALIST (CURRENT) USE OF ANTICOAGULANTS (6) Hypercholesterolemia Code(s): E78.00 - PURE HYPERCHOLESTEROLEMIA, UNSPECIFIED (7) Septic shock Code(s): A41.9 - SEPSIS, UNSPECIFIED ORGANISM; R65.21 - SEVERE SEPSIS WITH SEPTIC SHOCK (8) Sick sinus syndrome Code(s): I49.5 - SICK SINUS SYNDROME (9) ASHD (arteriosclerotic heart disease) Code(s): I25.10 - ATHSCL HEART DISEASE OF [place] CORONARY ARTERY W/O ANG PCTRS (10) COPD (chronic obstructive pulmonary disease) Code(s): J44.9 - CHRONIC OBSTRUCTIVE PULMONARY DISEASE, UNSPECIFIED Qualifiers: COPD type: unspecified COPD Qualified Code(s): J44.9 - Chronic obstructive pulmonary disease, unspecified (11) Diabetes mellitus Code(s): E11.9 - TYPE 2 DIABETES MELLITUS WITHOUT COMPLICATIONS (12) Dyspnea Code(s): R06.00 - DYSPNEA, UNSPECIFIED Qualifiers: Dyspnea type: dyspnea on exertion Qualified Code(s): R06.09 - Other forms of dyspnea (13) IDDM (insulin dependent diabetes mellitus) Code(s): E11.9 - TYPE 2 DIABETES MELLITUS WITHOUT COMPLICATIONS; Z79.4 - CARE HOME (CURRENT) USE OF INSULIN (14) Peripheral edema Code(s): R60.9 - EDEMA, UNSPECIFIED (15) Sleep apnea Code(s): G47.30 - SLEEP APNEA, UNSPECIFIED Qualifiers: Sleep apnea type: unspecified type Qualified Code(s): G47.30 - Sleep apnea , unspecified (16) Pneumonia Code(s): J18.9 - PNEUMONIA, UNSPECIFIED ORGANISM (17) Presence of permanent cardiac pacemaker Code(s): Z95.0 - PRESENCE OF CARDIAC PACEMAKER Assessment/Plan ASSESSMENT AND PLAN: Acute Hypoxic and Hypercapneic Respiratory Failure improving Pneumonia Cellulitis Staph Bacteremia Septic Shock resolving Lactic Acidosis resolved Acute Kidney Injury improving Elevated LFTs likely Ischemic Injury LV Systolic Dysfunction Atrial Fibrillation CAD HTN DM Hyperlipidemia OSAS - ABX - monitor urine output, creatinine - O2 to keep Spo2 >90% - monitor lytes - anticoagulation - DVT/GI prophylaxis - NIPPV QHS and PRN - Aspiration precautions DR STAFFORD
--- NOTE | 2018-07-22 11:42 | PN ---
Physical Exam: SUBJECTIVE: Patient seen and examined at bed side , no acute events over night , had BM, more alert and responsive , denies any fever, chills, N/V. still confused not sure what his base line. OBJECTIVE: Vital Signs Period Temp Pulse Resp BP Sys/Kuo Pulse Ox Last 24 Hr 98.1 F-98.5 F 61-78 18-20 108-126/57-70 98-100 GENERAL: AAOx2 in NAD , some confusion HEAD: NC/AT EYES: EOMI, Conjunctiva clear, sclera anicteric ENT: moist mucous membrane NECK: Supple, LUNGS: CTA B/L, no crackles no wheezing no accessory muscle use. HEART: RRR, NSR, normal s1, s2, murmur no M/R/G ABDOMEN: Soft, ND, NT, +BS 4 Q, no CVA Tenderness LOWER EXTREMITIES: +2 pedal edema, +2DP pulse, B/L lower leg wound with minimal erythema , improved compare to yesterday. NEUROLOGICAL: No focal deficit. Normal speech. gait not observed. PSYCHIATRIC: Cooperative SKIN: Warm, dry, Laboratory Results - last 24 hr 07/21/18 07/21/18 07/21/18 11:38 18:09 22:20 WBC RBC Hgb Hct MCV MCH MCHC RDW Plt Count MPV Absolute Neuts (auto) Neutrophils % Lymphocytes % Monocytes % Eosinophils % Basophils % Nucleated RBC % Sodium Potassium Chloride Carbon Dioxide Anion Gap BUN Creatinine Creat Clearance w eGFR POC Glucometer 121 89 169 Random Glucose Calcium Phosphorus Magnesium Total Bilirubin AST ALT Alkaline Phosphatase Total Protein Albumin 07/22/18 07/22/18 07/22/18 00:24 06:33 08:00 WBC 9.6 RBC 2.25 L Hgb 7.5 L Hct 23.3 L MCV 103.8 H MCH 33.3 MCHC 32.1 RDW 18.4 H Plt Count 273 MPV 8.9 Absolute Neuts (auto) 7.2 Neutrophils % 75.5 Lymphocytes % 8.7 Monocytes % 7.8 Eosinophils % 7.2 H Basophils % 0.8 Nucleated RBC % 0 Sodium Potassium Chloride Carbon Dioxide Anion Gap BUN Creatinine Creat Clearance w eGFR POC Glucometer 156 104 Random Glucose Calcium Phosphorus Magnesium Total Bilirubin AST ALT Alkaline Phosphatase Total Protein Albumin 07/22/18 08:00 WBC RBC Hgb Hct MCV MCH MCHC RDW Plt Count MPV Absolute Neuts (auto) Neutrophils % Lymphocytes % Monocytes % Eosinophils % Basophils % Nucleated RBC % Sodium 143 Potassium 4.1 Chloride 109 H Carbon Dioxide 28 Anion Gap 6 L BUN 21 H Creatinine 0.8 Creat Clearance w eGFR > 60 POC Glucometer Random Glucose 92 Calcium 7.7 L Phosphorus 2.2 L Magnesium 2.0 Total Bilirubin 0.7 AST 47 H ALT 62 H Alkaline Phosphatase 125 H Total Protein 5.2 L Albumin 2.1 L Active Medications Generic Name Dose Route Start Last Admin Trade Name Freq PRN Reason Stop Dose Admin Al Hydroxide/Mg Hydroxide 30 ml 07/19/18 18:44 Mylanta Oral Suspension - PO Q6H PRN INDIGESTION Albuterol/Ipratropium 1 amp 07/19/18 20:00 07/22/18 07:25 Duoneb - NEB 1 amp RQID [facility] Administration Carvedilol 3.125 mg 07/19/18 22:00 07/22/18 10:30 Coreg - NGT 3.125 mg BID [facility] Administration Collagenase 1 applic 07/22/18 11:30 Santyl - TP DAILY [facility] Protocol Docusate Sodium 100 mg 07/20/18 14:00 07/22/18 06:41 Colace - PO Not Given TID [facility] Ferrous Sulfate 325 mg 07/20/18 10:00 07/22/18 10:30 Feosol - PO 325 mg DAILY [facility] Administration Furosemide 20 mg 07/22/18 10:00 07/22/18 10:30 Lasix - PO 20 mg DAILY [facility] Administration Vancomycin HCl 1,250 mg/ 250 mls @ 166.667 mls/hr 07/20/18 15:00 07/21/18 16: 28 Dextrose IVPB 166.667 mls/hr Q24H [facility] Administration Protocol Piperacillin Sod/Tazobactam 50 mls @ 100 mls/hr 07/20/18 02:00 07/22/18 10:28 Sod 3.375 gm/ Dextrose IVPB 100 mls/hr Q8H-IV [facility] Administration Protocol Insulin Aspart 1 vial 07/20/18 00:00 07/22/18 06:41 Novolog Vial Sliding Scale - SQ Not Given Q6HPO [facility] Protocol Insulin Detemir 17 units 07/21/18 10:25 07/22/18 06:41 Levemir Vial SQ 17 units AM [facility] Administration Levothyroxine Sodium 50 mcg 07/20/18 07:00 07/22/18 06:40 Synthroid - PO 50 mcg DAILY@0700 [facility] Administration Losartan Potassium 25 mg 07/20/18 10:00 07/22/18 10:30 Cozaar - PO 25 mg DAILY [facility] Administration Pantoprazole Sodium 40 mg 07/22/18 10:00 07/22/18 10:30 Protonix - PO 40 mg DAILY [facility] Administration Polyethylene Glycol 17 gm 07/19/18 22:00 07/22/18 10:31 Miralax (For Daily Use) - PO Not Given BID [facility] Rivaroxaban 20 mg 07/20/18 18:00 07/21/18 18:17 Xarelto - PO 20 mg DAILY@1800 [facility] Administration Senna 1 tab 07/19/18 22:00 07/21/18 22:18 Senna - PO Not Given HS [facility] CBC, BMP 07/22/18 08:00 07/22/18 08:00 ASSESSMENT/PLAN: 83 y/o M with PMHx of CHF, COPD, HTN, HLD, CAD (s/p stenting x7 and pacemaker), Atrial Fibrillation, DM, chronic venous insufficiency, BPH was BIBEMS from [facility] for AMS and was admitted to the ICU for severe sepsis due to Cellulitus. #Septic Shock Likely due B/L lower extremity cellulitis, * S/P extubation * Continue Zosyn (Started on 07/10), Vanco (started on 07/12) * Chest PT * isolation precautions * ID (Dr. Thomas), Vascular surgery (Dr. Estrada), Cardiology (Dr. Peterson), Podiatry ( Dr. Greene) consulted, Appreciate recs # Anemia * H/H 7.5 23.3 drop compare to yesterday * Monitor H/H * transfuse if below 7 # Acute on chronic Systolic /Diastolic CHF , improved * cont lazix 20 mg po daily , monitor renal function * Daily weight * monitor I&O * out of bed as tolerated * taper Fio2 to keep Spo2 >90%, GI protection * Xarelto 20 qd, carvedilol 3.125 bid, losartan 25 qd with uptitration as hemodynamics tolerate. * Lipitor held pending resolution of LFT abnl #Dysphagia * Speech and swallow consulted, Appreciate Rec's. * Trial Magic cup tolerated; Dysphagia puree started today #Transaminitis * LFTs trending down; Continue to trend #Hyperkalemia, Resolved; Continue to monitor #Elevated TSH * Likely due to Severe Sepsisvs Euthyroid Sick Syndrome, Less likely Myxedema coma * cont Synthroid PO 50mcg * TSH trending down 13....5.4 #AFib * cont Xarelto, Coreg #DM * ISS, BGMs ACTID * increased Levemir 17u AM * A1c 6.8% * Hold Oral hypoglycemics * monitor for hypoglycemia #HTN * cont Losartan, Coreg #FEN * No standing fluids * Monitor lytes * Dysphagia Puree diet #PPx * DVT: Xarelto #Dispo: Transfer to Med surg #CODE STATUS: DNR Visit type - Emergency Visit Emergency Visit: Yes ED Registration Date: 07/10/18 Care time: The patient presented to the Emergency Department on the above date and was hospitalized for further evaluation of their emergent condition. - New Patient This patient is new to me today: No - Critical Care Critical Care patient: No - Discharge Referral [facility]erred to [facility] Med P.C.: No
[2018-07-22] MEDS ORDERED: PT OWN MED DRAWER 7, Y5N ONE (13:00)
[2018-07-22] MEDS: COLLAGENASE CLOSTRIDIUM HIST. 30 GRAMS TUBE TP SCH (13:02)
--- NOTE | 2018-07-22 13:25 | PN ---
Progress Note, Physician History of Present Illness: patient much more awake and alert still confused comfortable - Current Medication List Current Medications: Active Medications Al Hydroxide/Mg Hydroxide (Mylanta Oral Suspension -) 30 ml PO Q6H PRN PRN Reason: INDIGESTION Albuterol/Ipratropium (Duoneb -) 1 amp NEB RQID [facility] Last Admin: 07/22/18 11:15 Dose: 1 amp Carvedilol (Coreg -) 3.125 mg NGT BID [facility] Last Admin: 07/22/18 10:30 Dose: 3.125 mg Collagenase (Santyl -) 1 applic TP DAILY [facility]; Protocol Last Admin: 07/22/18 13:02 Dose: 1 applic Docusate Sodium (Colace -) 100 mg PO TID [facility] Last Admin: 07/22/18 06:41 Dose: Not Given Ferrous Sulfate (Feosol -) 325 mg PO DAILY [facility] Last Admin: 07/22/18 10:30 Dose: 325 mg Furosemide (Lasix -) 20 mg PO DAILY [facility] Last Admin: 07/22/18 10:30 Dose: 20 mg Vancomycin HCl 1,250 mg/ (Dextrose) 250 mls @ 166.667 mls/hr IVPB Q24H [facility]; Protocol Last Admin: 07/21/18 16:28 Dose: 166.667 mls/hr Piperacillin Sod/Tazobactam (Sod 3.375 gm/ Dextrose) 50 mls @ 100 mls/hr IVPB Q8H-IV [facility]; Protocol Last Admin: 07/22/18 10:28 Dose: 100 mls/hr Insulin Aspart (Novolog Vial Sliding Scale -) 1 vial SQ Q6HPO [facility]; Protocol Last Admin: 07/22/18 13:02 Dose: 6 units Insulin Detemir (Levemir Vial) 17 units SQ AM [facility] Last Admin: 07/22/18 06:41 Dose: 17 units Levothyroxine Sodium (Synthroid -) 50 mcg PO DAILY@0700 [facility] Last Admin: 07/22/18 06:40 Dose: 50 mcg Losartan Potassium (Cozaar -) 25 mg PO DAILY [facility] Last Admin: 07/22/18 10:30 Dose: 25 mg Pantoprazole Sodium (Protonix -) 40 mg PO DAILY [facility] Last Admin: 07/22/18 10:30 Dose: 40 mg Polyethylene Glycol (Miralax (For Daily Use) -) 17 gm PO BID [facility] Last Admin: 07/22/18 10:31 Dose: Not Given Rivaroxaban (Xarelto -) 20 mg PO DAILY@1800 [facility] Last Admin: 07/21/18 18:17 Dose: 20 mg Senna (Senna -) 1 tab PO HS [facility] Last Admin: 07/21/18 22:18 Dose: Not Given - Objective Vital Signs: Vital Signs Temperature 98.2 F 07/22/18 10:00 Pulse Rate 62 07/22/18 10:00 Respiratory Rate 18 07/22/18 10:00 Blood Pressure 124/67 07/22/18 10:00 O2 Sat by Pulse Oximetry (%) 100 07/22/18 10:00 Constitutional: Yes: No Distress, Calm Cardiovascular: Yes: Regular Rate and Rhythm Respiratory: Yes: Regular, CTA Bilaterally Gastrointestinal: Yes: Normal Bowel Sounds, Soft Musculoskeletal: Yes: WNL Extremities: Yes: WNL Neurological: Yes: Alert, Oriented Psychiatric: Yes: Alert, Oriented Labs: CBC, BMP 07/22/18 08:00 07/22/18 08:00 INR, PTT INR 1.28 (0.83-1.09) H 07/18/18 05:00 Fibrinogen 423.0 mg/dL (238-498) 07/12/18 05:30 Assessment/Plan septic shock Systolic / Diastolic CHF COPD HTN HLD CAD PPM Atrial Fibrillation DM Chronic venous insufficiency BPH s/p TURP CKD Anemia plan continue abx continue current mgmt vanco levels wound care rest as per the team physio
[2018-07-22] MEDS: VANCOMYCIN 1,250 MG in DEXTROSE 5%-WATER - 250 ML IVPB SCH (14:44)
[2018-07-22] MEDS: RIVAROXABAN 20 MG TABLET PO SCH (17:08)
[2018-07-22 20:03] LABS: HEMATOCRIT 25.6 % (35.4-49); HEMOGLOBIN 8.2 GM/dL (11.7-16.9); MCH 33.8 pg (25.7-33.7); MCHC 32.1 g/dl (32.0-35.9); MEAN CELL VOLUME 105.4 fl (80-96); MEAN PLT VOLUME 8.9 fl (7.5-11.1); PLATELET COUNT 317 K/MM3 (134-434); RBC 2.43 M/mm3 (4.00-5.60); RDW 18.8 % (11.9-15.9); WHITE BLOOD COUNT 10.2 K/mm3 (4.0-10.0)
[2018-07-22] MEDS: SENNOSIDES 8.6MG TABLET (FP) PO SCH (21:43)
[2018-07-23] MEDS: INSULIN SLIDING SCALE (NOVOLOG) 1 VIAL SQ SCH ×4 (00:43→18:48)
[2018-07-23] MEDS: PIPERACILLIN/TAZOB 3.375 GM 3.375 GM in DEXTROSE 5%-WATER - 50 ML IVPB SCH ×3 (02:46→18:48)
[2018-07-23] MEDS ORDERED: PIPERACILLIN/TAZOBACTAM 3.375 GM VIAL IVPB ONE ×3 (03:27→18:45)
[2018-07-23] MEDS ORDERED: DEXTROSE 5%-WATER - 50 ML IVPB ONE ×3 (03:27→18:45)
[2018-07-23] MEDS: DOCUSATE SODIUM 100 MG CAPSULE (FP) PO SCH ×3 (05:47→21:54)
[2018-07-23] MEDS: LEVOTHYROXINE NA 50 MCG TABLET (FP) PO SCH (06:29)
[2018-07-23] MEDS: INSULIN (LEVEMIR) 100 UNITS/ML UNITS SQ SCH (06:29)
[2018-07-23] MEDS: ALBUTEROL SO4 2.5/IPRATROPIUM 0.5 INH SOL 3 ML VIAL.NEB. NEB SCH ×4 (07:30→20:00)
[2018-07-23 08:52] LABS: BASO % 0.7 % (0-2.0); EOS % 2.1 % (0-4.5); HEMATOCRIT 25.9 % (35.4-49); HEMOGLOBIN 8.4 GM/dL (11.7-16.9); MCH 34.2 pg (25.7-33.7); MCHC 32.5 g/dl (32.0-35.9); MEAN CELL VOLUME 105.2 fl (80-96); MONO % 8.4 % (3.8-10.2); NEUT % 81.8 % (42.8-82.8); PLATELET COUNT 349 K/MM3 (134-434); RBC 2.46 M/mm3 (4.00-5.60); RDW 18.3 % (11.9-15.9); WHITE BLOOD COUNT 9.8 K/mm3 (4.0-10.0)
[2018-07-23 09:18] LABS: ALBUMIN 2.4 g/dl (3.4-5.0); ALK PHOS 158 U/L (45-117); ANION GAP 8 MMOL/L (8-16); BILIRUBIN,TOTAL 0.6 mg/dL (0.2-1); BLOOD UREA NITROGEN 24 mg/dL (7-18); CALCIUM 7.9 mg/dL (8.5-10.1); CHLORIDE 108 mmol/L (98-107); CO2 27 mmol/L (21-32); CREATININE 0.9 mg/dL (0.55-1.3); GLUCOSE,RANDOM 112 mg/dL (74-106); POTASSIUM 3.9 mmol/L (3.5-5.1); SGOT/AST 53 U/L (15-37); SGPT/ALT 67 U/L (13-61); SODIUM 143 mmol/L (136-145); TOT PROT 6.2 g/dl (6.4-8.2)
[2018-07-23] MEDS ORDERED: PT OWN MED DRAWER 7, Y5N ONE (09:34)
[2018-07-23] MEDS: CARVEDILOL 3.125 MG TABLET (FP) NGT SCH ×2 (09:59→21:55)
[2018-07-23] MEDS: PANTOPRAZOLE 40 MG TABLET (FP) PO SCH (09:59)
[2018-07-23] MEDS: FUROSEMIDE 20 MG TABLET (FP) PO SCH (09:59)
[2018-07-23] MEDS: LOSARTAN POTASSIUM 25 MG TABLET PO SCH (09:59)
[2018-07-23] MEDS: FERROUS SO4 325 MG TABLET (FP) PO SCH (09:59)
[2018-07-23] MEDS: POLYETHYLENE GLYCOL 3350 119 GM BTL PO SCH ×2 (10:00→21:54)
--- NOTE | 2018-07-23 12:42 | PN ---
Progress Note, Physician History of Present Illness: stable no new issues calm comfortable - Current Medication List Current Medications: Active Medications Al Hydroxide/Mg Hydroxide (Mylanta Oral Suspension -) 30 ml PO Q6H PRN PRN Reason: INDIGESTION Albuterol/Ipratropium (Duoneb -) 1 amp NEB RQID [facility] Last Admin: 07/23/18 11:46 Dose: 1 amp Carvedilol (Coreg -) 3.125 mg NGT BID [facility] Last Admin: 07/23/18 09:59 Dose: 3.125 mg Collagenase (Santyl -) 1 applic TP DAILY [facility]; Protocol Last Admin: 07/22/18 13:02 Dose: 1 applic Docusate Sodium (Colace -) 100 mg PO TID [facility] Last Admin: 07/23/18 05:47 Dose: Not Given Ferrous Sulfate (Feosol -) 325 mg PO DAILY [facility] Last Admin: 07/23/18 09:59 Dose: 325 mg Furosemide (Lasix -) 20 mg PO DAILY [facility] Last Admin: 07/23/18 09:59 Dose: 20 mg Vancomycin HCl 1,250 mg/ (Dextrose) 250 mls @ 166.667 mls/hr IVPB Q24H [facility]; Protocol Last Admin: 07/22/18 14:44 Dose: 166.667 mls/hr Piperacillin Sod/Tazobactam (Sod 3.375 gm/ Dextrose) 50 mls @ 100 mls/hr IVPB Q8H-IV [facility]; Protocol Last Admin: 07/23/18 10:00 Dose: 100 mls/hr Insulin Aspart (Novolog Vial Sliding Scale -) 1 vial SQ Q6HPO [facility]; Protocol Last Admin: 07/23/18 12:17 Dose: Not Given Insulin Detemir (Levemir Vial) 17 units SQ AM [facility] Last Admin: 07/23/18 06:29 Dose: 17 units Levothyroxine Sodium (Synthroid -) 50 mcg PO DAILY@0700 [facility] Last Admin: 07/23/18 06:29 Dose: 50 mcg Losartan Potassium (Cozaar -) 25 mg PO DAILY [facility] Last Admin: 07/23/18 09:59 Dose: 25 mg Pantoprazole Sodium (Protonix -) 40 mg PO DAILY [facility] Last Admin: 07/23/18 09:59 Dose: 40 mg Polyethylene Glycol (Miralax (For Daily Use) -) 17 gm PO BID [facility] Last Admin: 07/23/18 10:00 Dose: Not Given Rivaroxaban (Xarelto -) 20 mg PO DAILY@1800 [facility] Last Admin: 07/22/18 17:08 Dose: 20 mg Senna (Senna -) 1 tab PO HS [facility] Last Admin: 07/22/18 21:43 Dose: Not Given - Objective Vital Signs: Vital Signs Temperature 98.8 F 07/23/18 09:58 Pulse Rate 96 H 07/23/18 09:58 Respiratory Rate 18 07/23/18 09:58 Blood Pressure 149/61 07/23/18 09:58 O2 Sat by Pulse Oximetry (%) 94 L 07/22/18 22:00 Constitutional: Yes: No Distress, Calm Cardiovascular: Yes: S1, S2 Respiratory: Yes: Regular, CTA Bilaterally Gastrointestinal: Yes: Normal Bowel Sounds, Soft Musculoskeletal: Yes: WNL Extremities: Yes: WNL Integumentary: Yes: Other (wounds healing) Wound/Incision: Yes: Clean/Dry Neurological: Yes: Alert Labs: CBC, BMP 07/23/18 08:30 07/23/18 08:30 INR, PTT INR 1.28 (0.83-1.09) H 07/18/18 05:00 Fibrinogen 423.0 mg/dL (238-498) 07/12/18 05:30 Assessment/Plan septic shock Systolic / Diastolic CHF COPD HTN HLD CAD PPM Atrial Fibrillation DM Chronic venous insufficiency BPH s/p TURP CKD Anemia plan continue abx continue current mgmt vanco levels wound care rest as per the team physio
--- NOTE | 2018-07-23 13:17 | PN ---
Progress Note, Physician History of Present Illness: pulmonary drowsy,confused,dyspneic - Current Medication List Current Medications: Active Medications Al Hydroxide/Mg Hydroxide (Mylanta Oral Suspension -) 30 ml PO Q6H PRN PRN Reason: INDIGESTION Albuterol/Ipratropium (Duoneb -) 1 amp NEB RQID [facility] Last Admin: 07/23/18 11:46 Dose: 1 amp Carvedilol (Coreg -) 3.125 mg NGT BID [facility] Last Admin: 07/23/18 09:59 Dose: 3.125 mg Collagenase (Santyl -) 1 applic TP DAILY [facility]; Protocol Last Admin: 07/22/18 13:02 Dose: 1 applic Docusate Sodium (Colace -) 100 mg PO TID [facility] Last Admin: 07/23/18 05:47 Dose: Not Given Ferrous Sulfate (Feosol -) 325 mg PO DAILY [facility] Last Admin: 07/23/18 09:59 Dose: 325 mg Furosemide (Lasix -) 20 mg PO DAILY [facility] Last Admin: 07/23/18 09:59 Dose: 20 mg Vancomycin HCl 1,250 mg/ (Dextrose) 250 mls @ 166.667 mls/hr IVPB Q24H [facility]; Protocol Last Admin: 07/22/18 14:44 Dose: 166.667 mls/hr Piperacillin Sod/Tazobactam (Sod 3.375 gm/ Dextrose) 50 mls @ 100 mls/hr IVPB Q8H-IV [facility]; Protocol Last Admin: 07/23/18 10:00 Dose: 100 mls/hr Insulin Aspart (Novolog Vial Sliding Scale -) 1 vial SQ Q6HPO [facility]; Protocol Last Admin: 07/23/18 12:17 Dose: Not Given Insulin Detemir (Levemir Vial) 17 units SQ AM [facility] Last Admin: 07/23/18 06:29 Dose: 17 units Levothyroxine Sodium (Synthroid -) 50 mcg PO DAILY@0700 [facility] Last Admin: 07/23/18 06:29 Dose: 50 mcg Losartan Potassium (Cozaar -) 25 mg PO DAILY [facility] Last Admin: 07/23/18 09:59 Dose: 25 mg Pantoprazole Sodium (Protonix -) 40 mg PO DAILY [facility] Last Admin: 07/23/18 09:59 Dose: 40 mg Polyethylene Glycol (Miralax (For Daily Use) -) 17 gm PO BID [facility] Last Admin: 07/23/18 10:00 Dose: Not Given Rivaroxaban (Xarelto -) 20 mg PO DAILY@1800 [facility] Last Admin: 07/22/18 17:08 Dose: 20 mg Senna (Senna -) 1 tab PO HS [facility] Last Admin: 07/22/18 21:43 Dose: Not Given - Objective Vital Signs: Vital Signs Temperature 98.8 F 07/23/18 09:58 Pulse Rate 96 H 07/23/18 09:58 Respiratory Rate 18 07/23/18 09:58 Blood Pressure 149/61 07/23/18 09:58 O2 Sat by Pulse Oximetry (%) 94 L 07/22/18 22:00 Constitutional: Yes: Well Nourished, Other (more confused) Eyes: Yes: WNL HENT: Yes: WNL Neck: Yes: WNL Cardiovascular: Yes: Regular Rate and Rhythm, S1, S2 Respiratory: Yes: Rhonchi (scattered rhonchi) Gastrointestinal: Yes: Normal Bowel Sounds, Soft Extremities: Yes: WNL Edema: No Labs: CBC, BMP 07/23/18 08:30 07/23/18 08:30 INR, PTT INR 1.28 (0.83-1.09) H 07/18/18 05:00 Fibrinogen 423.0 mg/dL (238-498) 07/12/18 05:30 Problem List - Problems (1) Atrial fibrillation with controlled ventricular rate Code(s): I48.91 - UNSPECIFIED ATRIAL FIBRILLATION (2) CAD (coronary artery disease) Code(s): I25.10 - ATHSCL HEART DISEASE OF [place] CORONARY ARTERY W/O ANG PCTRS Qualifiers: Coronary Disease-Associated Artery/Lesion type: [place] artery [place] vs. transplanted heart: [place] heart Associated angina: without angina Qualified Code(s): I25.10 - Atherosclerotic heart disease of [place] coronary artery without angina pectoris (3) CHF (congestive heart failure) Code(s): I50.9 - HEART FAILURE, UNSPECIFIED Qualifiers: Heart failure type: combined systolic and diastolic Heart failure chronicity: chronic Qualified Code(s): I50.42 - Chronic combined systolic ( congestive) and diastolic (congestive) heart failure (4) COPD (chronic obstructive pulmonary disease) Code(s): J44.9 - CHRONIC OBSTRUCTIVE PULMONARY DISEASE, UNSPECIFIED Qualifiers: COPD type: unspecified COPD Qualified Code(s): J44.9 - Chronic obstructive pulmonary disease, unspecified (5) Chronic anticoagulation Code(s): Z79.01 - LIFE SCIENCES MANAGER (CURRENT) USE OF ANTICOAGULANTS (6) Hypercholesterolemia Code(s): E78.00 - PURE HYPERCHOLESTEROLEMIA, UNSPECIFIED (7) Septic shock Code(s): A41.9 - SEPSIS, UNSPECIFIED ORGANISM; R65.21 - SEVERE SEPSIS WITH SEPTIC SHOCK (8) Sick sinus syndrome Code(s): I49.5 - SICK SINUS SYNDROME (9) ASHD (arteriosclerotic heart disease) Code(s): I25.10 - ATHSCL HEART DISEASE OF [place] CORONARY ARTERY W/O ANG PCTRS (10) COPD (chronic obstructive pulmonary disease) Code(s): J44.9 - CHRONIC OBSTRUCTIVE PULMONARY DISEASE, UNSPECIFIED Qualifiers: COPD type: unspecified COPD Qualified Code(s): J44.9 - Chronic obstructive pulmonary disease, unspecified (11) Diabetes mellitus Code(s): E11.9 - TYPE 2 DIABETES MELLITUS WITHOUT COMPLICATIONS (12) Dyspnea Code(s): R06.00 - DYSPNEA, UNSPECIFIED Qualifiers: Dyspnea type: dyspnea on exertion Qualified Code(s): R06.09 - Other forms of dyspnea (13) IDDM (insulin dependent diabetes mellitus) Code(s): E11.9 - TYPE 2 DIABETES MELLITUS WITHOUT COMPLICATIONS; Z79.4 - SHELTER (CURRENT) USE OF INSULIN (14) Peripheral edema Code(s): R60.9 - EDEMA, UNSPECIFIED (15) Sleep apnea Code(s): G47.30 - SLEEP APNEA, UNSPECIFIED Qualifiers: Sleep apnea type: unspecified type Qualified Code(s): G47.30 - Sleep apnea , unspecified (16) Pneumonia Code(s): J18.9 - PNEUMONIA, UNSPECIFIED ORGANISM (17) Presence of permanent cardiac pacemaker Code(s): Z95.0 - PRESENCE OF CARDIAC PACEMAKER Assessment/Plan ASSESSMENT AND PLAN: Acute Hypoxic and Hypercapneic Respiratory Failure improving Pneumonia Cellulitis Staph Bacteremia Septic Shock resolving Lactic Acidosis resolved Acute Kidney Injury improving Elevated LFTs likely Ischemic Injury LV Systolic Dysfunction Atrial Fibrillation CAD HTN DM Hyperlipidemia OSAS - ABX - monitor urine output, creatinine - O2 to keep Spo2 >90% - monitor lytes - anticoagulation - DVT/GI prophylaxis - NIPPV QHS and PRN - Aspiration precautions - chest x-ray today DR STAFFORD
[2018-07-23] MEDS ORDERED: INSULIN (LEVEMIR) 100 UNITS/ML UNITS SQ SCH (14:50)
--- NOTE | 2018-07-23 14:51 | PN ---
Progress Note (short form) - Note Progress Note: Subjective: No fever or chills. no abd pain. no SOB . feels well Objective: Vital Signs: Awake, alert and cooperative. less confabulation . dry mouth ( mouth breather ) CV: RRR, 3/6 SM RUSB and LUSB Lungs: CTAB Abd: soft, NT, ND , NL BS. Ext:b/l leg wounds wrapped. dressing was not removed today ASSESSMENT AND PLAN: 83 y/o man with h/o CAD, s/p stents, permanent A fib, Systolic heart failure, HTN, HLP, DM , CKD , Anemia, COPD,recent admission for acute CHF exacerbation who was sent from [place] for LE pain and was found to have septic shock form LE cellulites, and went into hypoxic resp failure 1- Hypoxic resp failure, s/p extubation 2- s/p septic shock: resolved 3- Acute systolic and diastolic heart failure: improved 4- LE cellulites 5- Transaminitis 6- sick euthyroid syndrome 7- DM. 8- Hypernatremia 9- Gastritis , and acute anemia 10- hematuria Plan; -cont lasix at 20 . - cont vanco and zosyn, trough 12 , acceptable - cont BB , and increase losartan to home dose - monitor Hb - decrease levemir to 15 - cont synthroid - cont puree diet with honey thick liquids - rcheck electrolytes in am Dispo: HLOC Visit type - Emergency Visit Emergency Visit: Yes ED Registration Date: 07/10/18 Care time: The patient presented to the Emergency Department on the above date and was hospitalized for further evaluation of their emergent condition. - New Patient This patient is new to me today: No - Critical Care Critical Care patient: No
[2018-07-23] MEDS: VANCOMYCIN 1,250 MG in DEXTROSE 5%-WATER - 250 ML IVPB SCH (16:41)
[2018-07-23] MEDS: COLLAGENASE CLOSTRIDIUM HIST. 30 GRAMS TUBE TP SCH (16:43)
[2018-07-23] MEDS ORDERED: DEXTROSE 50%-WATER 25 GM/50 ML DISP.SYRIN ONE (17:36)
[2018-07-23] MEDS ORDERED: DEXTROSE 50%-WATER - 25 GM/50 ML VIAL IVPUSH ONE (17:47)
[2018-07-23] MEDS: RIVAROXABAN 20 MG TABLET PO SCH (18:48)
[2018-07-23] MEDS: SENNOSIDES 8.6MG TABLET (FP) PO SCH (21:54)
[2018-07-24] MEDS: INSULIN SLIDING SCALE (NOVOLOG) 1 VIAL SQ SCH ×4 (00:48→17:45)
[2018-07-24] MEDS: PIPERACILLIN/TAZOB 3.375 GM 3.375 GM in DEXTROSE 5%-WATER - 50 ML IVPB SCH ×3 (02:48→17:37)
[2018-07-24] MEDS ORDERED: PIPERACILLIN/TAZOBACTAM 3.375 GM VIAL IVPB ONE ×3 (03:07→17:26)
[2018-07-24] MEDS ORDERED: DEXTROSE 5%-WATER - 50 ML IVPB ONE ×3 (03:08→17:26)
[2018-07-24] MEDS: DOCUSATE SODIUM 100 MG CAPSULE (FP) PO SCH ×3 (05:54→21:09)
[2018-07-24] MEDS ORDERED: DEXTROSE 50%-WATER - 25 GM/50 ML VIAL IVPUSH ONE (06:02)
[2018-07-24] MEDS ORDERED: DEXTROSE 50%-WATER 25 GM/50 ML DISP.SYRIN ONE (06:07)
[2018-07-24] MEDS: LEVOTHYROXINE NA 50 MCG TABLET (FP) PO SCH (06:39)
[2018-07-24] MEDS ORDERED: INSULIN (LEVEMIR) 100 UNITS/ML UNITS SQ SCH (07:00)
[2018-07-24] MEDS: ALBUTEROL SO4 2.5/IPRATROPIUM 0.5 INH SOL 3 ML VIAL.NEB. NEB SCH ×3 (07:25→15:34)
[2018-07-24 09:06] LABS: PHOSPHOROUS 2.1 mg/dL (2.5-4.9); POTASSIUM 3.6 mmol/L (3.5-5.1)
[2018-07-24] MEDS ORDERED: PT OWN MED DRAWER 7, Y5N ONE ×2 (10:06→13:32)
--- NOTE | 2018-07-24 10:06 | PN ---
Progress Note, Physician History of Present Illness: stable no new issues comfortable - Current Medication List Current Medications: Active Medications Al Hydroxide/Mg Hydroxide (Mylanta Oral Suspension -) 30 ml PO Q6H PRN PRN Reason: INDIGESTION Albuterol/Ipratropium (Duoneb -) 1 amp NEB RQID [facility] Last Admin: 07/24/18 07:25 Dose: 1 amp Carvedilol (Coreg -) 3.125 mg NGT BID [facility] Last Admin: 07/23/18 21:55 Dose: 3.125 mg Collagenase (Santyl -) 1 applic TP DAILY [facility]; Protocol Last Admin: 07/23/18 16:43 Dose: 1 applic Docusate Sodium (Colace -) 100 mg PO TID [facility] Last Admin: 07/24/18 05:54 Dose: Not Given Ferrous Sulfate (Feosol -) 325 mg PO DAILY [facility] Last Admin: 07/23/18 09:59 Dose: 325 mg Furosemide (Lasix -) 20 mg PO DAILY [facility] Last Admin: 07/23/18 09:59 Dose: 20 mg Vancomycin HCl 1,250 mg/ (Dextrose) 250 mls @ 166.667 mls/hr IVPB Q24H [facility]; Protocol Last Admin: 07/23/18 16:41 Dose: 166.667 mls/hr Piperacillin Sod/Tazobactam (Sod 3.375 gm/ Dextrose) 50 mls @ 100 mls/hr IVPB Q8H-IV [facility]; Protocol Last Admin: 07/24/18 02:48 Dose: 100 mls/hr Insulin Aspart (Novolog Vial Sliding Scale -) 1 vial SQ Q6HPO [facility]; Protocol Last Admin: 07/24/18 06:18 Dose: Not Given Insulin Detemir (Levemir Vial) 15 units SQ AM [facility] Last Admin: 07/24/18 06:21 Dose: Not Given Levothyroxine Sodium (Synthroid -) 50 mcg PO DAILY@0700 [facility] Last Admin: 07/24/18 06:39 Dose: 50 mcg Losartan Potassium (Cozaar -) 50 mg PO DAILY [facility] Pantoprazole Sodium (Protonix -) 40 mg PO DAILY [facility] Last Admin: 07/23/18 09:59 Dose: 40 mg Polyethylene Glycol (Miralax (For Daily Use) -) 17 gm PO BID [facility] Last Admin: 07/23/18 21:54 Dose: Not Given Rivaroxaban (Xarelto -) 20 mg PO DAILY@1800 [facility] Last Admin: 07/23/18 18:48 Dose: 20 mg Senna (Senna -) 1 tab PO HS [facility] Last Admin: 07/23/18 21:54 Dose: Not Given - Objective Vital Signs: Vital Signs Temperature 98.2 F 07/23/18 22:00 Pulse Rate 64 07/23/18 22:00 Respiratory Rate 18 07/23/18 22:00 Blood Pressure 118/70 07/23/18 22:00 O2 Sat by Pulse Oximetry (%) 98 07/23/18 22:00 Constitutional: Yes: No Distress, Calm Cardiovascular: Yes: S1, S2 Respiratory: Yes: Regular, CTA Bilaterally Gastrointestinal: Yes: Normal Bowel Sounds, Soft Musculoskeletal: Yes: WNL Extremities: Yes: Other Neurological: Yes: Alert Psychiatric: Yes: Alert Labs: CBC, BMP 07/23/18 08:30 07/24/18 06:30 INR, PTT INR 1.28 (0.83-1.09) H 07/18/18 05:00 Fibrinogen 423.0 mg/dL (238-498) 07/12/18 05:30 Assessment/Plan septic shock Systolic / Diastolic CHF COPD HTN HLD CAD S/P PCI x 7 PPM Atrial Fibrillation DM Chronic venous insufficiency BPH s/p TURP CKD Anemia cellulitis of the legs plan continue abx complete the course physio rest as per the team
[2018-07-24] MEDS: FUROSEMIDE 20 MG TABLET (FP) PO SCH (10:13)
[2018-07-24] MEDS: PANTOPRAZOLE 40 MG TABLET (FP) PO SCH (10:13)
[2018-07-24] MEDS: FERROUS SO4 325 MG TABLET (FP) PO SCH (10:13)
[2018-07-24] MEDS: CARVEDILOL 3.125 MG TABLET (FP) NGT SCH ×2 (10:13→21:07)
[2018-07-24] MEDS: LOSARTAN POTASSIUM 25 MG TABLET PO SCH (10:13)
--- NOTE | 2018-07-24 10:15 | PN ---
Progress Note (short form) - Note Progress Note: PULMONARY Denies shortness of breath or chest pain. CXR showing increased congestion. Vital Signs Period Temp Pulse Resp BP Sys/Kuo Pulse Ox Last 24 Hr 98 F-98.2 F 61-64 18-18 118-121/70-72 98-98 Intake & Output 07/21/18 07/22/18 07/23/18 07/24/18 23:59 23:59 23:59 23:59 Intake Total 1700 1550 700 100 Output Total 300 Balance 1400 1550 700 100 Weight 69.218 kg 75.659 kg 76.657 kg Gen: more alert, awake Heart: RRR Lung: decreased breath sounds at the bases Abd: soft, nontender Ext: + edema CBC, BMP 07/23/18 08:30 07/24/18 06:30 Active Medications Al Hydroxide/Mg Hydroxide (Mylanta Oral Suspension -) 30 ml PO Q6H PRN PRN Reason: INDIGESTION Albuterol/Ipratropium (Duoneb -) 1 amp NEB RQID [facility] Last Admin: 07/24/18 07:25 Dose: 1 amp Carvedilol (Coreg -) 3.125 mg NGT BID [facility] Last Admin: 07/23/18 21:55 Dose: 3.125 mg Collagenase (Santyl -) 1 applic TP DAILY [facility]; Protocol Last Admin: 07/23/18 16:43 Dose: 1 applic Docusate Sodium (Colace -) 100 mg PO TID [facility] Last Admin: 07/24/18 05:54 Dose: Not Given Ferrous Sulfate (Feosol -) 325 mg PO DAILY [facility] Last Admin: 07/23/18 09:59 Dose: 325 mg Furosemide (Lasix -) 20 mg PO DAILY [facility] Last Admin: 07/23/18 09:59 Dose: 20 mg Vancomycin HCl 1,250 mg/ (Dextrose) 250 mls @ 166.667 mls/hr IVPB Q24H [facility]; Protocol Last Admin: 07/23/18 16:41 Dose: 166.667 mls/hr Piperacillin Sod/Tazobactam (Sod 3.375 gm/ Dextrose) 50 mls @ 100 mls/hr IVPB Q8H-IV [facility]; Protocol Last Admin: 07/24/18 02:48 Dose: 100 mls/hr Insulin Aspart (Novolog Vial Sliding Scale -) 1 vial SQ Q6HPO [facility]; Protocol Last Admin: 07/24/18 06:18 Dose: Not Given Insulin Detemir (Levemir Vial) 15 units SQ AM [facility] Last Admin: 07/24/18 06:21 Dose: Not Given Levothyroxine Sodium (Synthroid -) 50 mcg PO DAILY@0700 [facility] Last Admin: 07/24/18 06:39 Dose: 50 mcg Losartan Potassium (Cozaar -) 50 mg PO DAILY [facility] Pantoprazole Sodium (Protonix -) 40 mg PO DAILY [facility] Last Admin: 07/23/18 09:59 Dose: 40 mg Polyethylene Glycol (Miralax (For Daily Use) -) 17 gm PO BID [facility] Last Admin: 07/23/18 21:54 Dose: Not Given Rivaroxaban (Xarelto -) 20 mg PO DAILY@1800 [facility] Last Admin: 07/23/18 18:48 Dose: 20 mg Senna (Senna -) 1 tab PO HS [facility] Last Admin: 07/23/18 21:54 Dose: Not Given A/P Acute Hypoxic and Hypercapneic Respiratory Failure improving Pneumonia Cellulitis Staph Bacteremia Septic Shock resolved Acute Kidney Injury improving Elevated LFTs likely Ischemic Injury LV Systolic Dysfunction Volume Overload Atrial Fibrillation CAD HTN DM Hyperlipidemia WILLIS - continue antibiotics - consider lasix - monitor urine output, creatinine - keep net negative - O2 to keep Spo2 >90% - rate controlled - continue anticoagulation - BiPAP at night - DVT/GI prophylaxis
[2018-07-24] MEDS: COLLAGENASE CLOSTRIDIUM HIST. 30 GRAMS TUBE TP SCH (10:17)
[2018-07-24] MEDS: POLYETHYLENE GLYCOL 3350 119 GM BTL PO SCH ×2 (10:54→21:10)
[2018-07-24] MEDS: NAPH,MB-DB/K PH,MBDB POWDER PACKET PO SCH (11:16)
--- NOTE | 2018-07-24 11:17 | PN ---
Teaching Attending Note Name of Resident: Jagruti Mendoza ATTENDING PHYSICIAN STATEMENT I saw and evaluated the patient. I reviewed the resident's note and discussed the case with the resident. I agree with the resident's findings and plan as documented. SUBJECTIVE: No fever or chills. No SOB or CP , has no ABd pain, no diarrhea has pain in legs OBJECTIVE: Awake, alert and cooperative. less confabulation today. dry mouth ( mouth breather ) CV: RRR, 3/6 SM RUSB and LUSB Lungs: CTAB Abd: soft, NT, ND , NL BS. Ext:b/l leg wounds wrapped. dressing was not removed today ASSESSMENT AND PLAN: 83 y/o man with h/o CAD, s/p stents, permanent A fib, Systolic heart failure, HTN, HLP, DM , CKD , Anemia, COPD,recent admission for acute CHF exacerbation who was sent from OR for LE pain and was found to have septic shock form LE cellulites, and went into hypoxic resp failure 1- Hypoxic resp failure, s/p extubation 2- s/p septic shock: resolved 3- Acute systolic and diastolic heart failure: improved 4- LE cellulites : improved 5- Transaminitis 6- sick euthyroid syndrome 7- DM. hypoglycemia 8- Hypernatremia 9- Gastritis , and acute anemia Plan; -cont lasix at 20 . can increase if needed - cont vanco and zosyn, - repeat vanco trough tomorrow - cont BB , and losartan - monitor Hb - decrease levemir to 10. decrease dose of SSI - pc installation engineer consult - cont synthroid - cont puree diet with honey thick liquids - recheck LFTS tomorrow - replete Phos Dispo: HLOC
--- NOTE | 2018-07-24 12:17 | PN ---
Physical Exam: SUBJECTIVE: Patient seen and examined at bedside. Without complaint. As per nursing, with BG 34 this AM, and was bolused accordingly. AM levemir has been held for this reason. Pt also received breathing tx this AM and subsequently placed on 3L NC. OBJECTIVE: Vital Signs Period Temp Pulse Resp BP Sys/Kuo Pulse Ox Last 24 Hr 98 F-98.2 F 61-64 18-18 118-121/70-72 98-98 GENERAL: The patient is talking to himself. on 3L NC 02 HEAD: Normal with no signs of trauma. EYES: PERRL, extraocular movements intact, sclera anicteric, conjunctiva clear. ENT: Ears normal, nares patent, oropharynx clear without exudates, moist mucous membranes. NECK: Trachea midline, supple. LUNGS: +rhonchi appreciated RUL. without wheezes/crackles/rhonchi. HEART: +irregularly irregular rhythm. without rubs/murmurs/gallops ABDOMEN: Soft, nontender, nondistended, normoactive bowel sounds, no guarding EXTREMITIES: pt continues to refuse exam. NEUROLOGICAL: Cranial nerves II through XII grossly intact. PSYCH: internally stimulated; talking to self. laughing inappropriately SKIN: Warm, dry Laboratory Results - last 24 hr 07/23/18 07/23/18 07/23/18 17:35 17:37 17:51 Potassium POC Glucometer 28 27 118 Phosphorus 07/23/18 07/24/18 07/24/18 18:14 05:58 06:30 Potassium 3.6 POC Glucometer 79 34 Phosphorus 2.1 L 07/24/18 07/24/18 06:53 11:43 Potassium POC Glucometer 82 168 Phosphorus Active Medications Generic Name Dose Route Start Last Admin Trade Name Freq PRN Reason Stop Dose Admin Al Hydroxide/Mg Hydroxide 30 ml 07/19/18 18:44 Mylanta Oral Suspension - PO Q6H PRN INDIGESTION Albuterol/Ipratropium 1 amp 07/19/18 20:00 07/24/18 11:23 Duoneb - NEB 1 amp RQID [facility] Administration Carvedilol 3.125 mg 07/19/18 22:00 07/24/18 10:13 Coreg - NGT 3.125 mg BID [facility] Administration Collagenase 1 applic 07/22/18 11:30 07/24/18 10:17 Santyl - TP 1 applic DAILY [facility] Administration Protocol Docusate Sodium 100 mg 07/20/18 14:00 07/24/18 05:54 Colace - PO Not Given TID [facility] Ferrous Sulfate 325 mg 07/20/18 10:00 07/24/18 10:13 Feosol - PO 325 mg DAILY [facility] Administration Furosemide 20 mg 07/22/18 10:00 07/24/18 10:13 Lasix - PO 20 mg DAILY [facility] Administration Vancomycin HCl 1,250 mg/ 250 mls @ 166.667 mls/hr 07/20/18 15:00 07/23/18 16: 41 Dextrose IVPB 166.667 mls/hr Q24H [facility] Administration Protocol Piperacillin Sod/Tazobactam 50 mls @ 100 mls/hr 07/20/18 02:00 07/24/18 10:13 Sod 3.375 gm/ Dextrose IVPB 100 mls/hr Q8H-IV [facility] Administration Protocol Insulin Aspart 1 vial 07/24/18 12:00 Novolog Vial Sliding Scale - SQ Q6HPO [facility] Protocol Insulin Detemir 10 units 07/24/18 10:24 Levemir Vial SQ AM [facility] Levothyroxine Sodium 50 mcg 07/20/18 07:00 07/24/18 06:39 Synthroid - PO 50 mcg DAILY@0700 [facility] Administration Losartan Potassium 50 mg 07/24/18 10:00 07/24/18 10:13 Cozaar - PO 50 mg DAILY [facility] Administration Pantoprazole Sodium 40 mg 07/22/18 10:00 07/24/18 10:13 Protonix - PO 40 mg DAILY [facility] Administration Polyethylene Glycol 17 gm 07/19/18 22:00 07/24/18 10:54 Miralax (For Daily Use) - PO Not Given BID [facility] Potassium Phos/Sodium Phos 1 packet 07/24/18 10:30 07/24/18 11:16 Phos-Nak Packet - PO 1 packet DAILY [facility] Administration Rivaroxaban 20 mg 07/20/18 18:00 07/23/18 18:48 Xarelto - PO 20 mg DAILY@1800 [facility] Administration Senna 1 tab 07/19/18 22:00 07/23/18 21:54 Senna - PO Not Given HS [facility] ASSESSMENT/PLAN: 83 y/o M with h/o CAD s/p stents, persistent Afib, systolic HF, HTN, HLD, DM, CKD, COPD, brought from [place] for LE cellulitis, found to have hypoxic RF. #Hypoxic RF 2/2 Acute systolic and diastolic HF - improved -improved, with decreased edema -c/w lasix 20mg PO qd -coreg 3.125mg PO BID -losartan 5mg PO qd -strict I/O -Daily weight #persistent Afib -c/w xarelto 20mg PO qd #COPD -wean 02 as tolerated; 02 sat goal 88-92% -duonebs 1 amp RQID #b/l LE cellulitis -c/w vanc 1.25g IVPB qd; f/u vanc trough tomorrow -zosyn 3.375g IVPB q8h -Day 5 #transaminitis likely 2/2 ischemic injury -continue to trend LFTs #DM -with periods of hypoglycemia; regimen has been adjusted: -levemir 10u SQ AM -ISS; with loose adjustment. coverage w/BG >200 -nutrition consult #Euthyroid sick syndrome -c/w synthroid 50mcg PO qd #F/E/N -do not recommend IVF, as CHF -continue to follow lytes. especially phosph -dysphagia puree diet. diabetic #PPX DVT: on xarelto #Dispo cont'd management on floor. still on IV abx Visit type - Emergency Visit Emergency Visit: No - New Patient This patient is new to me today: Yes Date on this admission: 07/24/18 - Critical Care Critical Care patient: No
--- NOTE | 2018-07-24 12:28 | PN ---
Progress Note, Physician History of Present Illness: Remains on NC, tolerating dysphagia diet, denies chest pain or dyspnea. - Current Medication List Current Medications: Active Medications Al Hydroxide/Mg Hydroxide (Mylanta Oral Suspension -) 30 ml PO Q6H PRN PRN Reason: INDIGESTION Albuterol/Ipratropium (Duoneb -) 1 amp NEB RQID [facility] Last Admin: 07/24/18 11:23 Dose: 1 amp Carvedilol (Coreg -) 3.125 mg NGT BID [facility] Last Admin: 07/24/18 10:13 Dose: 3.125 mg Collagenase (Santyl -) 1 applic TP DAILY [facility]; Protocol Last Admin: 07/24/18 10:17 Dose: 1 applic Docusate Sodium (Colace -) 100 mg PO TID [facility] Last Admin: 07/24/18 05:54 Dose: Not Given Ferrous Sulfate (Feosol -) 325 mg PO DAILY [facility] Last Admin: 07/24/18 10:13 Dose: 325 mg Furosemide (Lasix -) 20 mg PO DAILY [facility] Last Admin: 07/24/18 10:13 Dose: 20 mg Vancomycin HCl 1,250 mg/ (Dextrose) 250 mls @ 166.667 mls/hr IVPB Q24H [facility]; Protocol Last Admin: 07/23/18 16:41 Dose: 166.667 mls/hr Piperacillin Sod/Tazobactam (Sod 3.375 gm/ Dextrose) 50 mls @ 100 mls/hr IVPB Q8H-IV [facility]; Protocol Last Admin: 07/24/18 10:13 Dose: 100 mls/hr Insulin Aspart (Novolog Vial Sliding Scale -) 1 vial SQ Q6HPO [facility]; Protocol Insulin Detemir (Levemir Vial) 10 units SQ AM [facility] Levothyroxine Sodium (Synthroid -) 50 mcg PO DAILY@0700 [facility] Last Admin: 07/24/18 06:39 Dose: 50 mcg Losartan Potassium (Cozaar -) 50 mg PO DAILY [facility] Last Admin: 07/24/18 10:13 Dose: 50 mg Pantoprazole Sodium (Protonix -) 40 mg PO DAILY [facility] Last Admin: 07/24/18 10:13 Dose: 40 mg Polyethylene Glycol (Miralax (For Daily Use) -) 17 gm PO BID [facility] Last Admin: 07/24/18 10:54 Dose: Not Given Potassium Phos/Sodium Phos (Phos-Nak Packet -) 1 packet PO DAILY [facility] Last Admin: 07/24/18 11:16 Dose: 1 packet Rivaroxaban (Xarelto -) 20 mg PO DAILY@1800 [facility] Last Admin: 07/23/18 18:48 Dose: 20 mg Senna (Senna -) 1 tab PO HS [facility] Last Admin: 07/23/18 21:54 Dose: Not Given - Objective Vital Signs: Vital Signs Temperature 98.2 F 07/23/18 22:00 Pulse Rate 64 07/23/18 22:00 Respiratory Rate 18 07/23/18 22:00 Blood Pressure 118/70 07/23/18 22:00 O2 Sat by Pulse Oximetry (%) 98 07/23/18 22:00 Constitutional: Yes: No Distress, Calm, Thin Neck: Yes: Supple Cardiovascular: Yes: Regular Rate and Rhythm, Murmur (2/6 SM) Respiratory: Yes: Regular, Diminished, On Nasal O2 Gastrointestinal: Yes: Normal Bowel Sounds, Soft Edema: No Labs: CBC, BMP 07/23/18 08:30 07/24/18 06:30 INR, PTT INR 1.28 (0.83-1.09) H 07/18/18 05:00 Fibrinogen 423.0 mg/dL (238-498) 07/12/18 05:30 - ....Imaging Chest X-ray: Report Reviewed (Increased CHF and effusions) Problem List - Problems (1) Abnormal liver function tests Code(s): R94.5 - ABNORMAL RESULTS OF LIVER FUNCTION STUDIES (2) CAD (coronary artery disease) Code(s): I25.10 - ATHSCL HEART DISEASE OF [place] CORONARY ARTERY W/O ANG PCTRS Qualifiers: Coronary Disease-Associated Artery/Lesion type: [place] artery [place] vs. transplanted heart: [place] heart Associated angina: without angina Qualified Code(s): I25.10 - Atherosclerotic heart disease of [place] coronary artery without angina pectoris (3) CHF (congestive heart failure) Code(s): I50.9 - HEART FAILURE, UNSPECIFIED Qualifiers: Heart failure type: combined systolic and diastolic Heart failure chronicity: chronic Qualified Code(s): I50.42 - Chronic combined systolic ( congestive) and diastolic (congestive) heart failure (4) Hypercholesterolemia Code(s): E78.00 - PURE HYPERCHOLESTEROLEMIA, UNSPECIFIED (5) Hypothyroid Code(s): E03.9 - HYPOTHYROIDISM, UNSPECIFIED Qualifiers: Hypothyroidism type: unspecified Qualified Code(s): E03.9 - Hypothyroidism , unspecified (6) Presence of permanent cardiac pacemaker Code(s): Z95.0 - PRESENCE OF CARDIAC PACEMAKER (7) Septic shock Code(s): A41.9 - SEPSIS, UNSPECIFIED ORGANISM; R65.21 - SEVERE SEPSIS WITH SEPTIC SHOCK (8) Sick sinus syndrome Code(s): I49.5 - SICK SINUS SYNDROME (9) History of percutaneous coronary intervention Code(s): Z98.890 - OTHER SPECIFIED POSTPROCEDURAL STATES (10) IDDM (insulin dependent diabetes mellitus) Code(s): E11.9 - TYPE 2 DIABETES MELLITUS WITHOUT COMPLICATIONS; Z79.4 - CLERICAL ASSISTANT (CURRENT) USE OF INSULIN (11) Sleep apnea Code(s): G47.30 - SLEEP APNEA, UNSPECIFIED Qualifiers: Sleep apnea type: unspecified type Qualified Code(s): G47.30 - Sleep apnea , unspecified (12) Atrial fibrillation with controlled ventricular rate Code(s): I48.91 - UNSPECIFIED ATRIAL FIBRILLATION (13) Chronic anticoagulation Code(s): Z79.01 - CLERICAL ASSISTANT (CURRENT) USE OF ANTICOAGULANTS Assessment/Plan 05/02/2018 Echocardiography revealed systolic LV dysfunction with LVEF 40-45%, moderate (mean gradient of 27.7 and peak gradient 46 mmHg, LYNETTE of 0.78 cm2), mild MR, mild to moderate TR 1. Acute Hypoxic and Hypercapneic Respiratory failure improving 2. Post septic shock - PNA, cellulitis, staph bacteremia 3. Acute on chronic LV failure class II NYHA classification LV failure referable to systolic/diastolic heart failure resolving 4. CAD s/p PCI/stent, angina pectoris 5. Persistent AF [id number] score of 6 on NOAC 6. AV block s/p PPM 7. HTN 8. Hypercholesterolemia 9. DM 10. COPD 11. CKD 12. Anemia 13. Hypothyroidism 14. BPH s/p TURP 15. Severe OSAS (RDI 108 per hour / desaturation to 72%) 16. Ischemic liver injury resolving PLAN: 1. Complete antibiotic course, BD, taper Fio2 to keep Spo2 >90%, GI protection, bipap nightly 2. Xarelto 20 qd, carvedilol 3.125 bid, losartan 25 qd with uptitration as hemodynamics tolerate. Lipitor held pending resolution of LFT abnl 3. IV diuresis as needed with monitor renal function and electrolytes, not on aldosterone inhibition given h/o hyperkalemia
[2018-07-24] MEDS ORDERED: FUROSEMIDE 40 MG/4 ML INJECTABLE VIAL IVPUSH ONE (14:00)
[2018-07-24] MEDS: VANCOMYCIN 1,250 MG in DEXTROSE 5%-WATER - 250 ML IVPB SCH (14:57)
[2018-07-24] MEDS: RIVAROXABAN 20 MG TABLET PO SCH (17:37)
[2018-07-24] MEDS: SENNOSIDES 8.6MG TABLET (FP) PO SCH (21:10)
[2018-07-25] MEDS: INSULIN SLIDING SCALE (NOVOLOG) 1 VIAL SQ SCH ×4 (00:10→17:47)
[2018-07-25] MEDS ORDERED: PIPERACILLIN/TAZOBACTAM 3.375 GM VIAL IVPB ONE ×3 (00:50→17:50)
[2018-07-25] MEDS ORDERED: DEXTROSE 5%-WATER - 50 ML IVPB ONE ×3 (00:50→17:50)
[2018-07-25] MEDS: PIPERACILLIN/TAZOB 3.375 GM 3.375 GM in DEXTROSE 5%-WATER - 50 ML IVPB SCH ×3 (01:15→17:53)
[2018-07-25] MEDS: LEVOTHYROXINE NA 50 MCG TABLET (FP) PO SCH (06:26)
[2018-07-25] MEDS: DOCUSATE SODIUM 100 MG CAPSULE (FP) PO SCH ×3 (06:26→22:58)
[2018-07-25 07:20] LABS: BASO % 1.3 % (0-2.0); HEMATOCRIT 22.6 % (35.4-49); HEMOGLOBIN 7.3 GM/dL (11.7-16.9); MCH 33.5 pg (25.7-33.7); MCHC 32.4 g/dl (32.0-35.9); MEAN CELL VOLUME 103.1 fl (80-96); MEAN PLT VOLUME 8.8 fl (7.5-11.1); NEUT % 69.7 % (42.8-82.8); PLATELET COUNT 290 K/MM3 (134-434); RBC 2.19 M/mm3 (4.00-5.60); RDW 18.5 % (11.9-15.9)
[2018-07-25 07:46] LABS: ALBUMIN 2.1 g/dl (3.4-5.0); ALK PHOS 142 U/L (45-117); ANION GAP 9 MMOL/L (8-16); BILIRUBIN,TOTAL 0.6 mg/dL (0.2-1); BLOOD UREA NITROGEN 23 mg/dL (7-18); CALCIUM 7.6 mg/dL (8.5-10.1); CHLORIDE 104 mmol/L (98-107); CO2 28 mmol/L (21-32); CREATININE 1.1 mg/dL (0.55-1.3); GLUCOSE,RANDOM 209 mg/dL (74-106); MAGNESIUM 1.9 mg/dL (1.8-2.4); PHOSPHOROUS 2.1 mg/dL (2.5-4.9); SGOT/AST 40 U/L (15-37); SGPT/ALT 52 U/L (13-61); SODIUM 141 mmol/L (136-145); TOT PROT 5.6 g/dl (6.4-8.2)
[2018-07-25] MEDS: INSULIN (LEVEMIR) 100 UNITS/ML UNITS SQ SCH (08:07)
[2018-07-25] MEDS: FUROSEMIDE 20 MG TABLET (FP) PO SCH (10:28)
[2018-07-25] MEDS: LOSARTAN POTASSIUM 25 MG TABLET PO SCH (10:28)
[2018-07-25] MEDS: FERROUS SO4 325 MG TABLET (FP) PO SCH (10:28)
[2018-07-25] MEDS: CARVEDILOL 3.125 MG TABLET (FP) NGT SCH ×2 (10:28→22:58)
[2018-07-25] MEDS: NAPH,MB-DB/K PH,MBDB POWDER PACKET PO SCH (10:29)
[2018-07-25] MEDS: POLYETHYLENE GLYCOL 3350 119 GM BTL PO SCH ×2 (10:29→22:58)
[2018-07-25] MEDS: COLLAGENASE CLOSTRIDIUM HIST. 30 GRAMS TUBE TP SCH (10:29)
[2018-07-25] MEDS: PANTOPRAZOLE 40 MG TABLET (FP) PO SCH (10:29)
--- NOTE | 2018-07-25 10:32 | PN ---
Progress Note (short form) - Note Progress Note: PULMONARY Denies shortness of breath or chest pain. Given lasix yesterday. Vital Signs Period Temp Pulse Resp BP Sys/Kuo Pulse Ox Last 24 Hr 98 F-99.1 F 60-70 18-20 104-128/61-68 Intake & Output 07/22/18 07/23/18 07/24/18 07/25/18 23:59 23:59 23:59 23:59 Intake Total 1550 700 950 250 Output Total 850 Balance 1550 700 100 250 Weight 75.659 kg 76.657 kg 76.294 kg Gen: more alert, awake Heart: RRR Lung: decreased breath sounds at the bases Abd: soft, nontender Ext: + edema CBC, BMP 07/25/18 06:15 07/25/18 06:15 Active Medications Al Hydroxide/Mg Hydroxide (Mylanta Oral Suspension -) 30 ml PO Q6H PRN PRN Reason: INDIGESTION Carvedilol (Coreg -) 3.125 mg NGT BID [facility] Last Admin: 07/25/18 10:28 Dose: 3.125 mg Collagenase (Santyl -) 1 applic TP DAILY [facility]; Protocol Last Admin: 07/25/18 10:29 Dose: 1 applic Docusate Sodium (Colace -) 100 mg PO TID [facility] Last Admin: 07/25/18 06:26 Dose: 100 mg Ferrous Sulfate (Feosol -) 325 mg PO DAILY [facility] Last Admin: 07/25/18 10:28 Dose: 325 mg Furosemide (Lasix -) 20 mg PO DAILY [facility] Last Admin: 07/25/18 10:28 Dose: 20 mg Vancomycin HCl 1,250 mg/ (Dextrose) 250 mls @ 166.667 mls/hr IVPB Q24H [facility]; Protocol Last Admin: 07/24/18 14:57 Dose: 166.667 mls/hr Piperacillin Sod/Tazobactam (Sod 3.375 gm/ Dextrose) 50 mls @ 100 mls/hr IVPB Q8H-IV [facility]; Protocol Last Admin: 07/25/18 10:30 Dose: 100 mls/hr Insulin Aspart (Novolog Vial Sliding Scale -) 1 vial SQ ACHS [facility]; Protocol Last Admin: 07/25/18 08:07 Dose: 2 units Insulin Detemir (Levemir Vial) 10 units SQ AM [facility] Last Admin: 07/25/18 08:07 Dose: 10 units Levothyroxine Sodium (Synthroid -) 50 mcg PO DAILY@0700 [facility] Last Admin: 07/25/18 06:26 Dose: 50 mcg Losartan Potassium (Cozaar -) 50 mg PO DAILY [facility] Last Admin: 07/25/18 10:28 Dose: 50 mg Pantoprazole Sodium (Protonix -) 40 mg PO DAILY [facility] Last Admin: 07/25/18 10:29 Dose: 40 mg Polyethylene Glycol (Miralax (For Daily Use) -) 17 gm PO BID [facility] Last Admin: 07/25/18 10:29 Dose: Not Given Potassium Phos/Sodium Phos (Phos-Nak Packet -) 1 packet PO DAILY [facility] Last Admin: 07/25/18 10:29 Dose: 1 packet Rivaroxaban (Xarelto -) 20 mg PO DAILY@1800 [facility] Last Admin: 07/24/18 17:37 Dose: 20 mg Senna (Senna -) 1 tab PO HS [facility] Last Admin: 07/24/18 21:10 Dose: Not Given A/P Acute Hypoxic and Hypercapneic Respiratory Failure improving Pneumonia Cellulitis Staph Bacteremia Septic Shock resolved Acute Kidney Injury improving Elevated LFTs likely Ischemic Injury LV Systolic Dysfunction Volume Overload Atrial Fibrillation CAD HTN DM Hyperlipidemia WILLIS - continue antibiotics - would continue lasix - monitor urine output, creatinine - keep net negative - O2 to keep Spo2 >90% - rate controlled - continue anticoagulation - BiPAP at night - DVT/GI prophylaxis
[2018-07-25] MEDS ORDERED: FUROSEMIDE 40 MG/4 ML INJECTABLE VIAL IVPUSH ONE (10:33)
--- NOTE | 2018-07-25 11:21 | PN ---
Progress Note, Physician Chief Complaint: Events noted Now on floor care Not in distress History of Present Illness: Patient was seen and examined. Awake. Chart was reviewed Denies chest pain, SOB or palpitations - Current Medication List Current Medications: Active Medications Al Hydroxide/Mg Hydroxide (Mylanta Oral Suspension -) 30 ml PO Q6H PRN PRN Reason: INDIGESTION Carvedilol (Coreg -) 3.125 mg NGT BID [facility] Last Admin: 07/25/18 10:28 Dose: 3.125 mg Collagenase (Santyl -) 1 applic TP DAILY [facility]; Protocol Last Admin: 07/25/18 10:29 Dose: 1 applic Docusate Sodium (Colace -) 100 mg PO TID [facility] Last Admin: 07/25/18 06:26 Dose: 100 mg Ferrous Sulfate (Feosol -) 325 mg PO DAILY [facility] Last Admin: 07/25/18 10:28 Dose: 325 mg Furosemide (Lasix -) 20 mg PO DAILY [facility] Last Admin: 07/25/18 10:28 Dose: 20 mg Vancomycin HCl 1,250 mg/ (Dextrose) 250 mls @ 166.667 mls/hr IVPB Q24H [facility]; Protocol Last Admin: 07/24/18 14:57 Dose: 166.667 mls/hr Piperacillin Sod/Tazobactam (Sod 3.375 gm/ Dextrose) 50 mls @ 100 mls/hr IVPB Q8H-IV [facility]; Protocol Last Admin: 07/25/18 10:30 Dose: 100 mls/hr Insulin Aspart (Novolog Vial Sliding Scale -) 1 vial SQ ACHS [facility]; Protocol Last Admin: 07/25/18 08:07 Dose: 2 units Insulin Detemir (Levemir Vial) 10 units SQ AM [facility] Last Admin: 07/25/18 08:07 Dose: 10 units Levothyroxine Sodium (Synthroid -) 50 mcg PO DAILY@0700 [facility] Last Admin: 07/25/18 06:26 Dose: 50 mcg Losartan Potassium (Cozaar -) 50 mg PO DAILY [facility] Last Admin: 07/25/18 10:28 Dose: 50 mg Pantoprazole Sodium (Protonix -) 40 mg PO DAILY [facility] Last Admin: 07/25/18 10:29 Dose: 40 mg Polyethylene Glycol (Miralax (For Daily Use) -) 17 gm PO BID [facility] Last Admin: 07/25/18 10:29 Dose: Not Given Potassium Phos/Sodium Phos (Phos-Nak Packet -) 1 packet PO DAILY [facility] Last Admin: 07/25/18 10:29 Dose: 1 packet Rivaroxaban (Xarelto -) 20 mg PO DAILY@1800 [facility] Last Admin: 07/24/18 17:37 Dose: 20 mg Senna (Senna -) 1 tab PO HS [facility] Last Admin: 07/24/18 21:10 Dose: Not Given - Objective Vital Signs: Vital Signs Temperature 99.1 F 07/25/18 06:00 Pulse Rate 60 07/25/18 06:00 Respiratory Rate 20 07/25/18 06:00 Blood Pressure 128/61 07/25/18 06:00 O2 Sat by Pulse Oximetry (%) 98 07/23/18 22:00 HENT: Yes: Atraumatic Neck: Yes: Supple Cardiovascular: Yes: Regular Rate and Rhythm, Murmur (2/6 SM), S1, S2 Respiratory: Yes: CTA Bilaterally Gastrointestinal: Yes: Normal Bowel Sounds, Soft. No: Tenderness Edema: Yes Edema: LLE: 1+, RLE: 1+ Labs: CBC, BMP 07/25/18 06:15 07/25/18 06:15 Problem List - Problems (1) Septic shock Code(s): A41.9 - SEPSIS, UNSPECIFIED ORGANISM; R65.21 - SEVERE SEPSIS WITH SEPTIC SHOCK (2) CAD (coronary artery disease) Code(s): I25.10 - ATHSCL HEART DISEASE OF [place] CORONARY ARTERY W/O ANG PCTRS Qualifiers: Coronary Disease-Associated Artery/Lesion type: [place] artery [place] vs. transplanted heart: [place] heart Associated angina: without angina Qualified Code(s): I25.10 - Atherosclerotic heart disease of [place] coronary artery without angina pectoris (3) Hypercholesterolemia Code(s): E78.00 - PURE HYPERCHOLESTEROLEMIA, UNSPECIFIED (4) Sick sinus syndrome Code(s): I49.5 - SICK SINUS SYNDROME (5) Presence of permanent cardiac pacemaker Code(s): Z95.0 - PRESENCE OF CARDIAC PACEMAKER (6) CHF (congestive heart failure) Code(s): I50.9 - HEART FAILURE, UNSPECIFIED Qualifiers: Heart failure type: combined systolic and diastolic Heart failure chronicity: chronic Qualified Code(s): I50.42 - Chronic combined systolic ( congestive) and diastolic (congestive) heart failure (7) COPD (chronic obstructive pulmonary disease) Code(s): J44.9 - CHRONIC OBSTRUCTIVE PULMONARY DISEASE, UNSPECIFIED Qualifiers: COPD type: unspecified COPD Qualified Code(s): J44.9 - Chronic obstructive pulmonary disease, unspecified (8) JENNYFER (acute kidney injury) Code(s): N17.9 - ACUTE KIDNEY FAILURE, UNSPECIFIED (9) Diabetes mellitus Code(s): E11.9 - TYPE 2 DIABETES MELLITUS WITHOUT COMPLICATIONS (10) History of percutaneous coronary intervention Code(s): Z98.890 - OTHER SPECIFIED POSTPROCEDURAL STATES (11) Sleep apnea Code(s): G47.30 - SLEEP APNEA, UNSPECIFIED Qualifiers: Sleep apnea type: unspecified type Qualified Code(s): G47.30 - Sleep apnea , unspecified Assessment/Plan 1. Acute hypoxic and hypercapneic respiratory failure 2. Post septic shock - pneumonia, cellulitis and staph bacteremia 3. Acute on chronic LV failure class II NYHA classification LV failure referable to systolic/diastolic heart failure 4. CAD s/p PCI/stent, angina pectoris 5. Persistent AF [id number] score of 6 on NOAC 6. AV block s/p PPM 7. HTN 8. Hypercholesterolemia 9. DM 10. COPD 11. CKD 12. Anemia 13. Hypothyroidism 14. BPH s/p TURP 15. Severe OSAS 16. Abnormal LFT with liver injury PLAN: 1. Antibiotic course, bronchodilator, taper Fio2 to keep Spo2 >90%, GI protection and BIPAP nightly 2. Xarelto 20mg QD, Carvedilol 3.125mg BID and Losartan 25mg QD with uptitration as hemodynamics tolerate. Lipitor has been held pending resolution of abnormal LFT 3. PO diuresis with Lasix 20 mg QD and monitoring renal function and electrolytes Continue present management as per medical service Solo Peterson MD
[2018-07-25] MEDS ORDERED: INSULIN (NOVOLOG) ASPART 100 UNITS/ML 10ML VIAL ONE (11:36)
--- NOTE | 2018-07-25 12:02 | PN ---
Progress Note, Physician History of Present Illness: patient stable has resp effort also legs are swollen awake and alert - Current Medication List Current Medications: Active Medications Al Hydroxide/Mg Hydroxide (Mylanta Oral Suspension -) 30 ml PO Q6H PRN PRN Reason: INDIGESTION Carvedilol (Coreg -) 3.125 mg NGT BID [facility] Last Admin: 07/25/18 10:28 Dose: 3.125 mg Collagenase (Santyl -) 1 applic TP DAILY [facility]; Protocol Last Admin: 07/25/18 10:29 Dose: 1 applic Docusate Sodium (Colace -) 100 mg PO TID [facility] Last Admin: 07/25/18 06:26 Dose: 100 mg Ferrous Sulfate (Feosol -) 325 mg PO DAILY [facility] Last Admin: 07/25/18 10:28 Dose: 325 mg Furosemide (Lasix -) 20 mg PO DAILY [facility] Last Admin: 07/25/18 10:28 Dose: 20 mg Vancomycin HCl 1,250 mg/ (Dextrose) 250 mls @ 166.667 mls/hr IVPB Q24H [facility]; Protocol Last Admin: 07/24/18 14:57 Dose: 166.667 mls/hr Piperacillin Sod/Tazobactam (Sod 3.375 gm/ Dextrose) 50 mls @ 100 mls/hr IVPB Q8H-IV [facility]; Protocol Last Admin: 07/25/18 10:30 Dose: 100 mls/hr Insulin Aspart (Novolog Vial Sliding Scale -) 1 vial SQ ACHS [facility]; Protocol Last Admin: 07/25/18 11:47 Dose: 4 units Insulin Detemir (Levemir Vial) 10 units SQ AM [facility] Last Admin: 07/25/18 08:07 Dose: 10 units Levothyroxine Sodium (Synthroid -) 50 mcg PO DAILY@0700 [facility] Last Admin: 07/25/18 06:26 Dose: 50 mcg Losartan Potassium (Cozaar -) 50 mg PO DAILY [facility] Last Admin: 07/25/18 10:28 Dose: 50 mg Pantoprazole Sodium (Protonix -) 40 mg PO DAILY [facility] Last Admin: 07/25/18 10:29 Dose: 40 mg Polyethylene Glycol (Miralax (For Daily Use) -) 17 gm PO BID [facility] Last Admin: 07/25/18 10:29 Dose: Not Given Potassium Phos/Sodium Phos (Phos-Nak Packet -) 1 packet PO DAILY [facility] Last Admin: 07/25/18 10:29 Dose: 1 packet Rivaroxaban (Xarelto -) 20 mg PO DAILY@1800 [facility] Last Admin: 07/24/18 17:37 Dose: 20 mg Senna (Senna -) 1 tab PO HS [facility] Last Admin: 07/24/18 21:10 Dose: Not Given - Objective Vital Signs: Vital Signs Temperature 99.1 F 07/25/18 06:00 Pulse Rate 60 07/25/18 06:00 Respiratory Rate 20 07/25/18 06:00 Blood Pressure 128/61 07/25/18 06:00 O2 Sat by Pulse Oximetry (%) 98 07/23/18 22:00 Constitutional: Yes: Calm, Mild Distress Cardiovascular: Yes: S1, S2 Respiratory: Yes: On Nasal O2, Poor Air Entry Gastrointestinal: Yes: Normal Bowel Sounds, Soft Musculoskeletal: Yes: WNL Extremities: Yes: Other Edema: LLE: 2+, RLE: 2+ Wound/Incision: Yes: Dressing Dry and Intact Neurological: Yes: Alert, Oriented Psychiatric: Yes: Alert, Oriented Labs: CBC, BMP 07/25/18 06:15 07/25/18 06:15 INR, PTT INR 1.28 (0.83-1.09) H 07/18/18 05:00 Fibrinogen 423.0 mg/dL (238-498) 07/12/18 05:30 Assessment/Plan septic shock Systolic / Diastolic CHF COPD HTN HLD CAD S/P PCI x 7 PPM Atrial Fibrillation DM Chronic venous insufficiency BPH s/p TURP CKD Anemia cellulitis of the legs plan continue abx complete the course physio rest as per the team as per cardio legs are swollen
--- NOTE | 2018-07-25 13:15 | PN ---
Physical Exam: SUBJECTIVE: Patient is a 83 y/o male with a history of CAD s/p stents, afib, systolic HF, HTN, HLD, DM, CKD, COPD who is here for LE cellulitis, he was found to have hypoxic respiratory failure. He has no complaints on exam, no acute events overnight. OBJECTIVE: Vital Signs Period Temp Pulse Resp BP Sys/Kuo Pulse Ox Last 24 Hr 98 F-99.1 F 60-70 18-20 104-128/61-68 GENERAL: The patient is awake, alert, a HEAD: Normal with no signs of trauma. EYES: PERRL, extraocular movements intact, LUNGS: Breath sounds equal, clear to auscultation bilaterally, no wheezes, no crackles, no accessory muscle use. HEART: Regular rate and rhythm, S1, S2 without murmur, rub or gallop. ABDOMEN: Soft, nontender, nondistended, normoactive bowel sounds, no guarding EXTREMITIES: 2+ pulses, warm, well-perfused, no edema. PSYCH: Normal mood, normal affect. SKIN: Warm, dry, normal turgor, no rashes or lesions noted CBC, BMP 07/25/18 06:15 07/25/18 06:15 Active Medications Al Hydroxide/Mg Hydroxide (Mylanta Oral Suspension -) 30 ml PO Q6H PRN PRN Reason: INDIGESTION Carvedilol (Coreg -) 3.125 mg NGT BID [facility] Last Admin: 07/25/18 10:28 Dose: 3.125 mg Collagenase (Santyl -) 1 applic TP DAILY [facility]; Protocol Last Admin: 07/25/18 10:29 Dose: 1 applic Docusate Sodium (Colace -) 100 mg PO TID [facility] Last Admin: 07/25/18 06:26 Dose: 100 mg Ferrous Sulfate (Feosol -) 325 mg PO DAILY [facility] Last Admin: 07/25/18 10:28 Dose: 325 mg Furosemide (Lasix -) 20 mg PO DAILY [facility] Last Admin: 07/25/18 10:28 Dose: 20 mg Vancomycin HCl 1,250 mg/ (Dextrose) 250 mls @ 166.667 mls/hr IVPB Q24H [facility]; Protocol Last Admin: 07/24/18 14:57 Dose: 166.667 mls/hr Piperacillin Sod/Tazobactam (Sod 3.375 gm/ Dextrose) 50 mls @ 100 mls/hr IVPB Q8H-IV [facility]; Protocol Last Admin: 07/25/18 10:30 Dose: 100 mls/hr Insulin Aspart (Novolog Vial Sliding Scale -) 1 vial SQ ACHS [facility]; Protocol Last Admin: 07/25/18 11:47 Dose: 4 units Insulin Detemir (Levemir Vial) 10 units SQ AM [facility] Last Admin: 07/25/18 08:07 Dose: 10 units Levothyroxine Sodium (Synthroid -) 50 mcg PO DAILY@0700 [facility] Last Admin: 07/25/18 06:26 Dose: 50 mcg Losartan Potassium (Cozaar -) 50 mg PO DAILY [facility] Last Admin: 07/25/18 10:28 Dose: 50 mg Pantoprazole Sodium (Protonix -) 40 mg PO DAILY [facility] Last Admin: 07/25/18 10:29 Dose: 40 mg Polyethylene Glycol (Miralax (For Daily Use) -) 17 gm PO BID [facility] Last Admin: 07/25/18 10:29 Dose: Not Given Potassium Phos/Sodium Phos (Phos-Nak Packet -) 1 packet PO DAILY [facility] Last Admin: 07/25/18 10:29 Dose: 1 packet Rivaroxaban (Xarelto -) 20 mg PO DAILY@1800 [facility] Last Admin: 07/24/18 17:37 Dose: 20 mg Senna (Senna -) 1 tab PO HS [facility] Last Admin: 07/24/18 21:10 Dose: Not Given ASSESSMENT/PLAN: Patient is a 83 y/o male with a history of CAD s/p stents, afib, systolic HF, HTN, HLD, DM, CKD, COPD who is here for LE cellulitis, he was found to have hypoxic respiratory failure. #B/L LE cellulitis - Vancomycin 1.25 mg IVPB and Zosyn 3.375 IVPB 8h - Day 15 - per Bobjane, patient should complete 14 days of abx, f/u for po medication #NYHA class II acute on chronic LV failure - clinically improve - continue on lasix 20 mg ( home dose 40 mg) - losartan 50 mg po daily - Echo: technically difficult, LV normal, L atrium mildly dilated, mild to moderate tricuspid regurg #Afib - Xarelto 20 mg daily - Carvdilol 3.125 mg po BID - CHADSVAC- 6 #transaminitis - likely 2/2 to ischemic injury - AST and ALT trending down - resume lipitor once normalized #COPD - maintain O2 88-92% - duonebs 1 amp RQID #DM - levemir 10 units daily ( 15 units at home) - SS ACHS #hypothyroidism - synthroid 50 mcg po daily #ppx - DVT: on xarelto Dispo: f/u Bobde for total abx course Visit type - Emergency Visit Emergency Visit: No - New Patient This patient is new to me today: Yes Date on this admission: 07/25/18 - Critical Care Critical Care patient: No
[2018-07-25 13:33] VITALS: BMI 24.0
--- NOTE | 2018-07-25 13:38 | PN ---
Progress Note, FINAL FINISHER - Note Progress Note: Selected Entries 07/18/18 07/18/18 07/18/18 02:00 06:00 08:00 Breakfast Lunch Supper Temperature 97.1 F L 97.1 F L 97.0 F L 07/18/18 07/24/18 07/24/18 09:40 08:00 10:18 Breakfast NPO 100% Lunch Supper Temperature 97.9 F 07/24/18 07/24/18 07/24/18 14:24 17:15 21:00 Breakfast Lunch 100% Supper Temperature 98.2 F 98.3 F 98 F 07/24/18 07/24/18 22:00 23:13 Breakfast Lunch Supper 75% Temperature 98 F Laboratory Tests 07/17/18 07/18/18 07/25/18 05:30 05:00 06:15 WBC 13.6 H 12.2 H 6.0 On puree/honey thick liquid.
[2018-07-25] MEDS ORDERED: PT OWN MED DRAWER 7, Y5N ONE (13:55)
--- NOTE | 2018-07-25 14:48 | PN ---
Teaching Attending Note Name of Resident: Alycia Steve ATTENDING PHYSICIAN STATEMENT I saw and evaluated the patient. I reviewed the resident's note and discussed the case with the resident. I agree with the resident's findings and plan as documented. SUBJECTIVE: No fever or chills. No abd pain. No SOB. OBJECTIVE: Awake, alert and cooperative. MMM eating CV: RRR, 3/6 SM RUSB and LUSB Lungs: CTAB Abd: soft, NT, ND , NL BS. Ext:b/l leg wounds with green discharge , and minimal surrounding erythema ASSESSMENT AND PLAN: 83 y/o man with h/o CAD, s/p stents, permanent A fib, Systolic heart failure, HTN, HLP, DM , CKD , Anemia, COPD,recent admission for acute CHF exacerbation who was sent from [place] for LE pain and was found to have septic shock form LE cellulites, and went into hypoxic resp failure 1- Hypoxic resp failure, s/p extubation 2- s/p septic shock: resolved 3- Acute systolic and diastolic heart failure: improved 4- LE cellulites : improved 5- Transaminitis 6- sick euthyroid syndrome 7- DM. hypoglycemia 8- Hypernatremia 9- Gastritis , and acute anemia Plan; -cont lasix at 20 .can increase to home dos eof 40 if needed and when po intake improves - cont vanco and zosyn, day 15 today -vanco trough this afternoon - cont BB , and losartan - monitor Hb - cont levemir at 10. change SSI to TIDAC - cont synthroid - cont puree diet with honey thick liquids - daily phos until Phos is NL - fluctuating Hb. No evidence of bleed - resume DVT pX Dispo: HLOC ASSESSMENT AND PLAN:
[2018-07-25] MEDS: RIVAROXABAN 20 MG TABLET PO SCH (17:53)
[2018-07-25] MEDS: VANCOMYCIN 1,250 MG in DEXTROSE 5%-WATER - 250 ML IVPB SCH (18:11)
[2018-07-25] MEDS: SENNOSIDES 8.6MG TABLET (FP) PO SCH (22:58)
[2018-07-25] MEDS: HEPARIN NA (PORCINE) 5,000 UNITS/ML 1ML VIAL SQ SCH (22:58)
[2018-07-26] MEDS ORDERED: PT OWN MED DRAWER 7, Y5N ONE ×4 (00:38→09:57)
[2018-07-26] MEDS ORDERED: PIPERACILLIN/TAZOBACTAM 3.375 GM VIAL IVPB ONE ×4 (01:49→23:50)
[2018-07-26] MEDS ORDERED: DEXTROSE 5%-WATER - 50 ML IVPB ONE ×4 (01:49→23:50)
[2018-07-26] MEDS: PIPERACILLIN/TAZOB 3.375 GM 3.375 GM in DEXTROSE 5%-WATER - 50 ML IVPB SCH ×3 (02:03→17:49)
[2018-07-26] MEDS: LEVOTHYROXINE NA 50 MCG TABLET (FP) PO SCH (06:25)
[2018-07-26] MEDS: HEPARIN NA (PORCINE) 5,000 UNITS/ML 1ML VIAL SQ SCH ×3 (06:25→21:41)
[2018-07-26] MEDS: DOCUSATE SODIUM 100 MG CAPSULE (FP) PO SCH ×3 (06:26→21:42)
[2018-07-26] MEDS: INSULIN (LEVEMIR) 100 UNITS/ML UNITS SQ SCH (06:28)
[2018-07-26] MEDS: INSULIN SLIDING SCALE (NOVOLOG) 1 VIAL SQ SCH ×4 (06:29→17:49)
--- NOTE | 2018-07-26 08:31 | PN ---
Teaching Attending Note Name of Resident: Dennis Gill ATTENDING PHYSICIAN STATEMENT I saw and evaluated the patient. I reviewed the resident's note and discussed the case with the resident. I agree with the resident's findings and plan as documented. SUBJECTIVE: Patient is feeling better, NAD. OBJECTIVE: Vital Signs Temperature 98.6 F 07/26/18 06:00 Pulse Rate 62 07/26/18 06:00 Respiratory Rate 20 07/26/18 06:00 Blood Pressure 138/74 07/26/18 06:00 O2 Sat by Pulse Oximetry (%) 100 07/25/18 22:00 GENERAL: The patient is awake, alert, NAD HEAD: Normal with no signs of trauma. EYES: PERRL, extraocular movements intact, LUNGS: Breath sounds equal, clear to auscultation bilaterally, no W/R/R, no accessory muscle use. HEART: Regular rate and rhythm, S1, S2 without murmur, rub or gallop. ABDOMEN: Soft, nontender, nondistended, normoactive bowel sounds, no guarding EXTREMITIES: 2+ pulses, warm, well-perfused, no edema. PSYCH: Normal mood, normal affect. SKIN: Warm, dry, normal turgor, no rashes or lesions noted CBCD WBC 6.0 K/mm3 (4.0-10.0) 07/25/18 06:15 RBC 2.19 M/mm3 (4.00-5.60) L 07/25/18 06:15 Hgb 7.3 GM/dL (11.7-16.9) L 07/25/18 06:15 Hct 22.6 % (35.4-49) L 07/25/18 06:15 MCV 103.1 fl (80-96) H 07/25/18 06:15 MCHC 32.4 g/dl (32.0-35.9) 07/25/18 06:15 RDW 18.5 % (11.9-15.9) H 07/25/18 06:15 Plt Count 290 K/MM3 (134-434) 07/25/18 06:15 MPV 8.8 fl (7.5-11.1) 07/25/18 06:15 CMP Sodium 141 mmol/L (136-145) 07/25/18 06:15 Potassium 4.0 mmol/L (3.5-5.1) 07/25/18 06:15 Chloride 104 mmol/L (98-107) 07/25/18 06:15 Carbon Dioxide 28 mmol/L (21-32) 07/25/18 06:15 Anion Gap 9 MMOL/L (8-16) 07/25/18 06:15 BUN 23 mg/dL (7-18) H 07/25/18 06:15 Creatinine 1.1 mg/dL (0.55-1.3) 07/25/18 06:15 Creat Clearance w eGFR > 60 (>60) 07/25/18 06:15 Random Glucose 209 mg/dL (74-106) H 07/25/18 06:15 Calcium 7.6 mg/dL (8.5-10.1) L 07/25/18 06:15 Total Bilirubin 0.6 mg/dL (0.2-1) 07/25/18 06:15 AST 40 U/L (15-37) H 07/25/18 06:15 ALT 52 U/L (13-61) 07/25/18 06:15 Alkaline Phosphatase 142 U/L (45-117) H 07/25/18 06:15 Total Protein 5.6 g/dl (6.4-8.2) L 07/25/18 06:15 Albumin 2.1 g/dl (3.4-5.0) L 07/25/18 06:15 CARDIAC ENZYMES Creatine Kinase 179 IU/L (26-308) 07/10/18 16:00 Troponin I < 0.02 ng/ml (0.00-0.05) 07/10/18 16:00 Current Medications Generic Name Dose Route Start Last Admin Trade Name Freq PRN Reason Stop Dose Admin Al Hydroxide/Mg Hydroxide 30 ml 07/19/18 18:44 Mylanta Oral Suspension - PO Q6H PRN INDIGESTION Carvedilol 3.125 mg 07/19/18 22:00 07/25/18 22:58 Coreg - NGT 3.125 mg BID [facility] Administration Collagenase 1 applic 07/22/18 11:30 07/25/18 10:29 Santyl - TP 1 applic DAILY [facility] Administration Protocol Docusate Sodium 100 mg 07/20/18 14:00 07/26/18 06:26 Colace - PO 100 mg TID [facility] Administration Ferrous Sulfate 325 mg 07/20/18 10:00 07/25/18 10:28 Feosol - PO 325 mg DAILY [facility] Administration Furosemide 20 mg 07/22/18 10:00 07/25/18 10:28 Lasix - PO 20 mg DAILY [facility] Administration Heparin Sodium (Porcine) 5,000 unit 07/25/18 22:00 07/26/18 06:25 Heparin - SQ 5,000 unit TID [facility] Administration Vancomycin HCl 1,250 mg/ 250 mls @ 166.667 mls/hr 07/20/18 15:00 07/25/18 18: 11 Dextrose IVPB 166.667 mls/hr Q24H [facility] Administration Protocol Piperacillin Sod/Tazobactam 50 mls @ 100 mls/hr 07/20/18 02:00 07/26/18 02:03 Sod 3.375 gm/ Dextrose IVPB 100 mls/hr Q8H-IV [facility] Administration Protocol Insulin Aspart 1 vial 07/25/18 16:30 07/26/18 06:29 Novolog Vial Sliding Scale - SQ Not Given TIDAC [facility] Protocol Insulin Detemir 10 units 07/24/18 10:24 07/26/18 06:28 Levemir Vial SQ 10 units AM [facility] Administration Levothyroxine Sodium 50 mcg 07/20/18 07:00 07/26/18 06:25 Synthroid - PO 50 mcg DAILY@0700 [facility] Administration Losartan Potassium 50 mg 07/24/18 10:00 07/25/18 10:28 Cozaar - PO 50 mg DAILY [facility] Administration Pantoprazole Sodium 40 mg 07/22/18 10:00 07/25/18 10:29 Protonix - PO 40 mg DAILY [facility] Administration Polyethylene Glycol 17 gm 07/19/18 22:00 07/25/18 22:58 Miralax (For Daily Use) - PO Not Given BID [facility] Potassium Phos/Sodium Phos 1 packet 07/24/18 10:30 07/25/18 10:29 Phos-Nak Packet - PO 1 packet DAILY [facility] Administration Rivaroxaban 20 mg 07/20/18 18:00 07/25/18 17:53 Xarelto - PO 20 mg DAILY@1800 [facility] Administration Senna 1 tab 07/19/18 22:00 07/25/18 22:58 Senna - PO 1 tab HS [facility] Administration Home Medications Medication Instructions Recorded Albuterol 2.5/Ipratropium 0.5 1 neb IH QID 07/10/18 [Duoneb -] Atorvastatin Ca [Lipitor] 40 mg PO HS 07/10/18 Carvedilol [Coreg -] 6.25 mg PO BID 07/10/18 Docusate Sodium [Colace] 200 mg PO HS 07/10/18 Doxazosin Mesylate [Cardura Xl] 8 mg PO HS 07/10/18 Ferrous Sulfate [Feosol] 325 mg PO DAILY 07/10/18 Furosemide [Lasix -] 40 mg PO DAILY 07/10/18 Insulin Aspart [Novolog] 100 unit SQ ACHS 07/10/18 Insulin Detemir [Levemir Flextouch] 10 unit SQ HS 07/10/18 Losartan Potassium [Cozaar -] 50 mg PO DAILY 07/10/18 Mag Hydrox/Al Hydrox/Simeth 30 ml PO Q6H PRN 07/10/18 [Mylanta *Suspension*] Polyethylene Glycol 3350 [Miralax 17 gm PO BID 07/10/18 (For Daily Use) -] Rivaroxaban [Xarelto -] 20 mg PO DAILY 07/10/18 Sennosides [Senna] 17.2 mg PO HS 07/10/18 Silver Sulfadiazine 1% Top Cr 1 applic TP DAILY 07/10/18 [Silvadene -] clonazePAM [Klonopin -] 0.5 mg PO BID 07/10/18 ASSESSMENT AND PLAN: 83 y/o man with h/o CAD, s/p stents, permanent A fib, Systolic heart failure, HTN, HLP, DM , CKD , Anemia, COPD,recent admission for acute CHF exacerbation who was sent from [place] for LE pain and was found to have septic shock form LE cellulites, and went into hypoxic resp failure # Acute Hypoxic resp failure, s/p extubation stable now # s/p septic shock: resolved cont vanco and zosyn, day 16 as per ID one more day of IV antibiotic # Acute systolic and diastolic heart failure: improved on BB,Losartan and Diuretics continue # LE cellulites : improved on IV Zosyn and Vancomycin # Transaminitis improved # sick euthyroid syndrome monitore # T2DM on sliding scale and on levemir 10 # Hypernatremia improved # Gastritis with acute anemia , hgb 7.3 monitor puree diet with honey thick liquids resume DVT Px: heparin Waiting for placement.
[2018-07-26 09:35] LABS: HEMATOCRIT 22.8 % (35.4-49); HEMOGLOBIN 7.4 GM/dL (11.7-16.9); MCH 33.4 pg (25.7-33.7); MCHC 32.6 g/dl (32.0-35.9); MEAN CELL VOLUME 102.4 fl (80-96); MEAN PLT VOLUME 8.6 fl (7.5-11.1); PLATELET COUNT 280 K/MM3 (134-434); RBC 2.23 M/mm3 (4.00-5.60); WHITE BLOOD COUNT 5.6 K/mm3 (4.0-10.0)
[2018-07-26 10:13] LABS: ALBUMIN 2.1 g/dl (3.4-5.0); ALK PHOS 140 U/L (45-117); ANION GAP 4 MMOL/L (8-16); BILIRUBIN,TOTAL 0.7 mg/dL (0.2-1); BLOOD UREA NITROGEN 21 mg/dL (7-18); CALCIUM 7.9 mg/dL (8.5-10.1); CHLORIDE 104 mmol/L (98-107); CO2 33 mmol/L (21-32); CREATININE 0.9 mg/dL (0.55-1.3); GLUCOSE,RANDOM 155 mg/dL (74-106); POTASSIUM 3.7 mmol/L (3.5-5.1); SGOT/AST 30 U/L (15-37); SGPT/ALT 46 U/L (13-61); SODIUM 140 mmol/L (136-145); TOT PROT 5.7 g/dl (6.4-8.2)
--- NOTE | 2018-07-26 10:32 | PN ---
Progress Note, Physician History of Present Illness: patient doing well no new issues comfortable legs look good - Current Medication List Current Medications: Active Medications Al Hydroxide/Mg Hydroxide (Mylanta Oral Suspension -) 30 ml PO Q6H PRN PRN Reason: INDIGESTION Carvedilol (Coreg -) 3.125 mg NGT BID [facility] Last Admin: 07/25/18 22:58 Dose: 3.125 mg Collagenase (Santyl -) 1 applic TP DAILY [facility]; Protocol Last Admin: 07/25/18 10:29 Dose: 1 applic Docusate Sodium (Colace -) 100 mg PO TID [facility] Last Admin: 07/26/18 06:26 Dose: 100 mg Ferrous Sulfate (Feosol -) 325 mg PO DAILY [facility] Last Admin: 07/25/18 10:28 Dose: 325 mg Furosemide (Lasix -) 20 mg PO DAILY [facility] Last Admin: 07/25/18 10:28 Dose: 20 mg Heparin Sodium (Porcine) (Heparin -) 5,000 unit SQ TID [facility] Last Admin: 07/26/18 06:25 Dose: 5,000 unit Vancomycin HCl 1,250 mg/ (Dextrose) 250 mls @ 166.667 mls/hr IVPB Q24H [facility]; Protocol Last Admin: 07/25/18 18:11 Dose: 166.667 mls/hr Piperacillin Sod/Tazobactam (Sod 3.375 gm/ Dextrose) 50 mls @ 100 mls/hr IVPB Q8H-IV [facility]; Protocol Last Admin: 07/26/18 02:03 Dose: 100 mls/hr Insulin Aspart (Novolog Vial Sliding Scale -) 1 vial SQ TIDAC [facility]; Protocol Last Admin: 07/26/18 06:29 Dose: Not Given Insulin Detemir (Levemir Vial) 10 units SQ AM [facility] Last Admin: 07/26/18 06:28 Dose: 10 units Levothyroxine Sodium (Synthroid -) 50 mcg PO DAILY@0700 [facility] Last Admin: 07/26/18 06:25 Dose: 50 mcg Losartan Potassium (Cozaar -) 50 mg PO DAILY [facility] Last Admin: 07/25/18 10:28 Dose: 50 mg Pantoprazole Sodium (Protonix -) 40 mg PO DAILY [facility] Last Admin: 07/25/18 10:29 Dose: 40 mg Polyethylene Glycol (Miralax (For Daily Use) -) 17 gm PO BID [facility] Last Admin: 07/25/18 22:58 Dose: Not Given Potassium Phos/Sodium Phos (Phos-Nak Packet -) 1 packet PO DAILY [facility] Last Admin: 07/25/18 10:29 Dose: 1 packet Rivaroxaban (Xarelto -) 20 mg PO DAILY@1800 [facility] Last Admin: 07/25/18 17:53 Dose: 20 mg Senna (Senna -) 1 tab PO HS [facility] Last Admin: 07/25/18 22:58 Dose: 1 tab - Objective Vital Signs: Vital Signs Temperature 98.6 F 07/26/18 06:00 Pulse Rate 62 07/26/18 06:00 Respiratory Rate 20 07/26/18 06:00 Blood Pressure 138/74 07/26/18 06:00 O2 Sat by Pulse Oximetry (%) 100 07/25/18 22:00 Constitutional: Yes: No Distress, Calm Cardiovascular: Yes: S1, S2 Respiratory: Yes: Regular, CTA Bilaterally Gastrointestinal: Yes: Normal Bowel Sounds, Soft Musculoskeletal: Yes: WNL Extremities: Yes: Other Wound/Incision: Yes: Dressing Dry and Intact Neurological: Yes: Alert, Oriented Psychiatric: Yes: Alert, Oriented Labs: CBC, BMP 07/26/18 09:00 07/26/18 09:00 INR, PTT INR 1.28 (0.83-1.09) H 07/18/18 05:00 Fibrinogen 423.0 mg/dL (238-498) 07/12/18 05:30 Assessment/Plan septic shock Systolic / Diastolic CHF COPD HTN HLD CAD S/P PCI x 7 PPM Atrial Fibrillation DM Chronic venous insufficiency BPH s/p TURP CKD Anemia cellulitis of the legs plan continue abx complete the course physio rest as per the team as per cardio wound improving
[2018-07-26] MEDS: LOSARTAN POTASSIUM 25 MG TABLET PO SCH (11:13)
[2018-07-26] MEDS: NAPH,MB-DB/K PH,MBDB POWDER PACKET PO SCH (11:14)
[2018-07-26] MEDS: FERROUS SO4 325 MG TABLET (FP) PO SCH (11:14)
[2018-07-26] MEDS: CARVEDILOL 3.125 MG TABLET (FP) NGT SCH ×2 (11:14→21:32)
[2018-07-26] MEDS: FUROSEMIDE 20 MG TABLET (FP) PO SCH (11:14)
[2018-07-26] MEDS: PANTOPRAZOLE 40 MG TABLET (FP) PO SCH (11:14)
[2018-07-26] MEDS: COLLAGENASE CLOSTRIDIUM HIST. 30 GRAMS TUBE TP SCH (11:14)
[2018-07-26] MEDS: POLYETHYLENE GLYCOL 3350 119 GM BTL PO SCH ×2 (11:15→21:42)
--- NOTE | 2018-07-26 11:57 | PN ---
Physical Exam: SUBJECTIVE: Patient is a 83 y/o male with a history of CAD s/p stents, afib, systolic HF, HTN, HLD, DM, CKD, COPD who is here for LE cellulitis, he was found to have hypoxic respiratory failure. He has no complaints on exam, no acute events overnight. Patient will complete his last day of antibiotics today. OBJECTIVE: Vital Signs Temperature 98.6 F 07/26/18 06:00 Pulse Rate 62 07/26/18 06:00 Respiratory Rate 20 07/26/18 06:00 Blood Pressure 138/74 07/26/18 06:00 O2 Sat by Pulse Oximetry (%) 100 07/25/18 22:00 GENERAL: The patient is awake, alert, a HEAD: Normal with no signs of trauma. EYES: PERRL, extraocular movements intact, LUNGS: Breath sounds equal, clear to auscultation bilaterally, no wheezes, no crackles, no accessory muscle use. HEART: Regular rate and rhythm, S1, S2 without murmur, rub or gallop. ABDOMEN: Soft, nontender, nondistended, normoactive bowel sounds, no guarding EXTREMITIES: 2+ pulses, warm, well-perfused, no edema. PSYCH: Normal mood, normal affect. SKIN: Warm, dry, normal turgor, no rashes or lesions noted CBC, BMP 07/26/18 09:00 07/26/18 09:00 Active Medications Al Hydroxide/Mg Hydroxide (Mylanta Oral Suspension -) 30 ml PO Q6H PRN PRN Reason: INDIGESTION Carvedilol (Coreg -) 3.125 mg NGT BID [facility] Last Admin: 07/26/18 11:14 Dose: 3.125 mg Collagenase (Santyl -) 1 applic TP DAILY [facility]; Protocol Last Admin: 07/26/18 11:14 Dose: 1 applic Docusate Sodium (Colace -) 100 mg PO TID [facility] Last Admin: 07/26/18 06:26 Dose: 100 mg Ferrous Sulfate (Feosol -) 325 mg PO DAILY [facility] Last Admin: 07/26/18 11:14 Dose: 325 mg Furosemide (Lasix -) 20 mg PO DAILY [facility] Last Admin: 07/26/18 11:14 Dose: 20 mg Heparin Sodium (Porcine) (Heparin -) 5,000 unit SQ TID [facility] Last Admin: 07/26/18 06:25 Dose: 5,000 unit Vancomycin HCl 1,250 mg/ (Dextrose) 250 mls @ 166.667 mls/hr IVPB Q24H [facility]; Protocol Last Admin: 07/25/18 18:11 Dose: 166.667 mls/hr Piperacillin Sod/Tazobactam (Sod 3.375 gm/ Dextrose) 50 mls @ 100 mls/hr IVPB Q8H-IV [facility]; Protocol Last Admin: 07/26/18 11:13 Dose: 100 mls/hr Insulin Aspart (Novolog Vial Sliding Scale -) 1 vial SQ TIDAC [facility]; Protocol Last Admin: 07/26/18 06:29 Dose: Not Given Insulin Detemir (Levemir Vial) 10 units SQ AM [facility] Last Admin: 07/26/18 06:28 Dose: 10 units Levothyroxine Sodium (Synthroid -) 50 mcg PO DAILY@0700 [facility] Last Admin: 07/26/18 06:25 Dose: 50 mcg Losartan Potassium (Cozaar -) 50 mg PO DAILY [facility] Last Admin: 07/26/18 11:13 Dose: 50 mg Pantoprazole Sodium (Protonix -) 40 mg PO DAILY [facility] Last Admin: 07/26/18 11:14 Dose: 40 mg Polyethylene Glycol (Miralax (For Daily Use) -) 17 gm PO BID [facility] Last Admin: 07/26/18 11:15 Dose: Not Given Potassium Phos/Sodium Phos (Phos-Nak Packet -) 1 packet PO DAILY [facility] Last Admin: 07/26/18 11:14 Dose: 1 packet Rivaroxaban (Xarelto -) 20 mg PO DAILY@1800 [facility] Last Admin: 07/25/18 17:53 Dose: 20 mg Senna (Senna -) 1 tab PO HS [facility] Last Admin: 07/25/18 22:58 Dose: 1 tab ASSESSMENT/PLAN: Patient is a 83 y/o male with a history of CAD s/p stents, afib, systolic HF, HTN, HLD, DM, CKD, COPD who is here for LE cellulitis, he was found to have hypoxic respiratory failure. #B/L LE cellulitis - Vancomycin 1.25 mg IVPB and Zosyn 3.375 IVPB 8h - Day 16 - per Martha, today is patients last day of antibiotics #NYHA class II acute on chronic LV failure - clinically improved - continue on lasix 20 mg ( home dose 40 mg) - losartan 50 mg po daily - Echo: technically difficult, LV normal, L atrium mildly dilated, mild to moderate tricuspid regurg, moderate mitral valve thickening #Afib - Xarelto 20 mg daily - Carvdilol 3.125 mg po BID (home dose 6.25 mg po BID - lipitor 10 mg hs - CHADSVAC- 6 #transaminitis - resolved - AST and ALT trending down #COPD - maintain O2 88-92% - duonebs 1 amp RQID #DM - levemir 10 units daily - SS ACHS #hypothyroidism - synthroid 50 mcg po daily #ppx - DVT: on xarelto Dispo:patient to finish abx course today, per Social Work patients fdc dose not want him back, patient will need placement Visit type - Emergency Visit Emergency Visit: No - New Patient This patient is new to me today: No - Critical Care Critical Care patient: No
--- NOTE | 2018-07-26 14:23 | PN ---
Progress Note, Physician History of Present Illness: Remains on NC, tolerating dysphagia diet, denies chest pain or dyspnea. - Current Medication List Current Medications: Active Medications Al Hydroxide/Mg Hydroxide (Mylanta Oral Suspension -) 30 ml PO Q6H PRN PRN Reason: INDIGESTION Atorvastatin Calcium (Lipitor -) 10 mg PO HS [facility] Carvedilol (Coreg -) 3.125 mg NGT BID [facility] Last Admin: 07/26/18 11:14 Dose: 3.125 mg Collagenase (Santyl -) 1 applic TP DAILY [facility]; Protocol Last Admin: 07/26/18 11:14 Dose: 1 applic Docusate Sodium (Colace -) 100 mg PO TID [facility] Last Admin: 07/26/18 06:26 Dose: 100 mg Ferrous Sulfate (Feosol -) 325 mg PO DAILY [facility] Last Admin: 07/26/18 11:14 Dose: 325 mg Furosemide (Lasix -) 20 mg PO DAILY [facility] Last Admin: 07/26/18 11:14 Dose: 20 mg Heparin Sodium (Porcine) (Heparin -) 5,000 unit SQ TID [facility] Last Admin: 07/26/18 06:25 Dose: 5,000 unit Vancomycin HCl 1,250 mg/ (Dextrose) 250 mls @ 166.667 mls/hr IVPB Q24H [facility]; Protocol Last Admin: 07/25/18 18:11 Dose: 166.667 mls/hr Piperacillin Sod/Tazobactam (Sod 3.375 gm/ Dextrose) 50 mls @ 100 mls/hr IVPB Q8H-IV [facility]; Protocol Last Admin: 07/26/18 11:13 Dose: 100 mls/hr Insulin Aspart (Novolog Vial Sliding Scale -) 1 vial SQ TIDAC [facility]; Protocol Last Admin: 07/26/18 12:35 Dose: 6 units Insulin Detemir (Levemir Vial) 10 units SQ AM [facility] Last Admin: 07/26/18 06:28 Dose: 10 units Levothyroxine Sodium (Synthroid -) 50 mcg PO DAILY@0700 [facility] Last Admin: 07/26/18 06:25 Dose: 50 mcg Losartan Potassium (Cozaar -) 50 mg PO DAILY [facility] Last Admin: 07/26/18 11:13 Dose: 50 mg Pantoprazole Sodium (Protonix -) 40 mg PO DAILY [facility] Last Admin: 07/26/18 11:14 Dose: 40 mg Polyethylene Glycol (Miralax (For Daily Use) -) 17 gm PO BID [facility] Last Admin: 07/26/18 11:15 Dose: Not Given Potassium Phos/Sodium Phos (Phos-Nak Packet -) 1 packet PO DAILY [facility] Last Admin: 07/26/18 11:14 Dose: 1 packet Rivaroxaban (Xarelto -) 20 mg PO DAILY@1800 [facility] Last Admin: 07/25/18 17:53 Dose: 20 mg Senna (Senna -) 1 tab PO HS [facility] Last Admin: 07/25/18 22:58 Dose: 1 tab - Objective Vital Signs: Vital Signs Temperature 98.6 F 07/26/18 06:00 Pulse Rate 62 07/26/18 06:00 Respiratory Rate 20 07/26/18 06:00 Blood Pressure 138/74 07/26/18 06:00 O2 Sat by Pulse Oximetry (%) 100 07/25/18 22:00 Constitutional: Yes: No Distress, Calm Neck: Yes: Supple Cardiovascular: Yes: Regular Rate and Rhythm, Murmur (2/6 SM) Respiratory: Yes: Regular, Diminished Gastrointestinal: Yes: Normal Bowel Sounds, Soft Edema: Yes Edema: LLE: Trace, RLE: Trace Labs: CBC, BMP 07/26/18 09:00 07/26/18 09:00 INR, PTT INR 1.28 (0.83-1.09) H 07/18/18 05:00 Fibrinogen 423.0 mg/dL (238-498) 07/12/18 05:30 Problem List - Problems (1) Abnormal liver function tests Code(s): R94.5 - ABNORMAL RESULTS OF LIVER FUNCTION STUDIES (2) CAD (coronary artery disease) Code(s): I25.10 - ATHSCL HEART DISEASE OF [place] CORONARY ARTERY W/O ANG PCTRS Qualifiers: Coronary Disease-Associated Artery/Lesion type: [place] artery [place] vs. transplanted heart: [place] heart Associated angina: without angina Qualified Code(s): I25.10 - Atherosclerotic heart disease of [place] coronary artery without angina pectoris (3) CHF (congestive heart failure) Code(s): I50.9 - HEART FAILURE, UNSPECIFIED Qualifiers: Heart failure type: combined systolic and diastolic Heart failure chronicity: chronic Qualified Code(s): I50.42 - Chronic combined systolic ( congestive) and diastolic (congestive) heart failure (4) Hypercholesterolemia Code(s): E78.00 - PURE HYPERCHOLESTEROLEMIA, UNSPECIFIED (5) Hypothyroid Code(s): E03.9 - HYPOTHYROIDISM, UNSPECIFIED Qualifiers: Hypothyroidism type: unspecified Qualified Code(s): E03.9 - Hypothyroidism , unspecified (6) Presence of permanent cardiac pacemaker Code(s): Z95.0 - PRESENCE OF CARDIAC PACEMAKER (7) Septic shock Code(s): A41.9 - SEPSIS, UNSPECIFIED ORGANISM; R65.21 - SEVERE SEPSIS WITH SEPTIC SHOCK (8) Sick sinus syndrome Code(s): I49.5 - SICK SINUS SYNDROME (9) History of percutaneous coronary intervention Code(s): Z98.890 - OTHER SPECIFIED POSTPROCEDURAL STATES (10) IDDM (insulin dependent diabetes mellitus) Code(s): E11.9 - TYPE 2 DIABETES MELLITUS WITHOUT COMPLICATIONS; Z79.4 - USP (CURRENT) USE OF INSULIN (11) Sleep apnea Code(s): G47.30 - SLEEP APNEA, UNSPECIFIED Qualifiers: Sleep apnea type: unspecified type Qualified Code(s): G47.30 - Sleep apnea , unspecified (12) Atrial fibrillation with controlled ventricular rate Code(s): I48.91 - UNSPECIFIED ATRIAL FIBRILLATION (13) Chronic anticoagulation Code(s): Z79.01 - USP (CURRENT) USE OF ANTICOAGULANTS Assessment/Plan 05/02/2018 Echocardiography revealed systolic LV dysfunction with LVEF 40-45%, moderate (mean gradient of 27.7 and peak gradient 46 mmHg, LYNETTE of 0.78 cm2), mild MR, mild to moderate TR 1. Acute Hypoxic and Hypercapneic Respiratory failure improving 2. Post septic shock - PNA, cellulitis, staph bacteremia 3. Acute on chronic LV failure class II NYHA classification LV failure referable to systolic/diastolic heart failure resolving 4. CAD s/p PCI/stent, angina pectoris 5. Persistent AF [id number] score of 6 on NOAC 6. AV block s/p PPM 7. HTN 8. Hypercholesterolemia 9. DM 10. COPD 11. CKD 12. Anemia 13. Hypothyroidism 14. BPH s/p TURP 15. Severe OSAS (RDI 108 per hour / desaturation to 72%) 16. Ischemic liver injury resolving PLAN: 1. Complete antibiotic course, BD, taper Fio2 to keep Spo2 >90%, GI protection, bipap nightly 2. Xarelto 20 qd, carvedilol 3.125 bid, losartan 25 qd with uptitration as hemodynamics tolerate. Lipitor held pending resolution of LFT abnl 3. Oral diuresis (Lasix 20 mg QD) with monitor diuretic response, renal function and electrolytes, not on aldosterone inhibition given h/o hyperkalemia 4. Monitor Hgb and transfuse to maintain Hgb>8.0 P
--- NOTE | 2018-07-26 14:52 | PN ---
Progress Note, Physician History of Present Illness: pulmonary awake,still confused,-resp distress - Current Medication List Current Medications: Active Medications Al Hydroxide/Mg Hydroxide (Mylanta Oral Suspension -) 30 ml PO Q6H PRN PRN Reason: INDIGESTION Atorvastatin Calcium (Lipitor -) 10 mg PO HS [facility] Carvedilol (Coreg -) 3.125 mg NGT BID [facility] Last Admin: 07/26/18 11:14 Dose: 3.125 mg Collagenase (Santyl -) 1 applic TP DAILY [facility]; Protocol Last Admin: 07/26/18 11:14 Dose: 1 applic Docusate Sodium (Colace -) 100 mg PO TID [facility] Last Admin: 07/26/18 06:26 Dose: 100 mg Ferrous Sulfate (Feosol -) 325 mg PO DAILY [facility] Last Admin: 07/26/18 11:14 Dose: 325 mg Furosemide (Lasix -) 20 mg PO DAILY [facility] Last Admin: 07/26/18 11:14 Dose: 20 mg Heparin Sodium (Porcine) (Heparin -) 5,000 unit SQ TID [facility] Last Admin: 07/26/18 06:25 Dose: 5,000 unit Vancomycin HCl 1,250 mg/ (Dextrose) 250 mls @ 166.667 mls/hr IVPB Q24H [facility]; Protocol Last Admin: 07/25/18 18:11 Dose: 166.667 mls/hr Piperacillin Sod/Tazobactam (Sod 3.375 gm/ Dextrose) 50 mls @ 100 mls/hr IVPB Q8H-IV [facility]; Protocol Last Admin: 07/26/18 11:13 Dose: 100 mls/hr Insulin Aspart (Novolog Vial Sliding Scale -) 1 vial SQ TIDAC [facility]; Protocol Last Admin: 07/26/18 12:35 Dose: 6 units Insulin Detemir (Levemir Vial) 10 units SQ AM [facility] Last Admin: 07/26/18 06:28 Dose: 10 units Levothyroxine Sodium (Synthroid -) 50 mcg PO DAILY@0700 [facility] Last Admin: 07/26/18 06:25 Dose: 50 mcg Losartan Potassium (Cozaar -) 50 mg PO DAILY [facility] Last Admin: 07/26/18 11:13 Dose: 50 mg Pantoprazole Sodium (Protonix -) 40 mg PO DAILY [facility] Last Admin: 07/26/18 11:14 Dose: 40 mg Polyethylene Glycol (Miralax (For Daily Use) -) 17 gm PO BID [facility] Last Admin: 07/26/18 11:15 Dose: Not Given Potassium Phos/Sodium Phos (Phos-Nak Packet -) 1 packet PO DAILY [facility] Last Admin: 07/26/18 11:14 Dose: 1 packet Rivaroxaban (Xarelto -) 20 mg PO DAILY@1800 [facility] Last Admin: 07/25/18 17:53 Dose: 20 mg Senna (Senna -) 1 tab PO HS [facility] Last Admin: 07/25/18 22:58 Dose: 1 tab - Objective Vital Signs: Vital Signs Temperature 98.6 F 07/26/18 06:00 Pulse Rate 62 07/26/18 06:00 Respiratory Rate 20 07/26/18 06:00 Blood Pressure 138/74 07/26/18 06:00 O2 Sat by Pulse Oximetry (%) 100 07/25/18 22:00 Constitutional: Yes: Well Nourished, Calm Eyes: Yes: WNL HENT: Yes: WNL Neck: Yes: WNL Cardiovascular: Yes: Pulse Irregular, S1, S2 Respiratory: Yes: Diminished Gastrointestinal: Yes: Normal Bowel Sounds, Soft Extremities: Yes: WNL Edema: Yes Labs: CBC, BMP 07/26/18 09:00 07/26/18 09:00 INR, PTT INR 1.28 (0.83-1.09) H 07/18/18 05:00 Fibrinogen 423.0 mg/dL (238-498) 07/12/18 05:30 Problem List - Problems (1) Atrial fibrillation with controlled ventricular rate Code(s): I48.91 - UNSPECIFIED ATRIAL FIBRILLATION (2) CAD (coronary artery disease) Code(s): I25.10 - ATHSCL HEART DISEASE OF [place] CORONARY ARTERY W/O ANG PCTRS Qualifiers: Coronary Disease-Associated Artery/Lesion type: [place] artery [place] vs. 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 (4) COPD (chronic obstructive pulmonary disease) Code(s): J44.9 - CHRONIC OBSTRUCTIVE PULMONARY DISEASE, UNSPECIFIED Qualifiers: COPD type: unspecified COPD Qualified Code(s): J44.9 - Chronic obstructive pulmonary disease, unspecified (5) Chronic anticoagulation Code(s): Z79.01 - [employer]ATOR (CURRENT) USE OF ANTICOAGULANTS (6) Hypercholesterolemia Code(s): E78.00 - PURE HYPERCHOLESTEROLEMIA, UNSPECIFIED (7) Septic shock Code(s): A41.9 - SEPSIS, UNSPECIFIED ORGANISM; R65.21 - SEVERE SEPSIS WITH SEPTIC SHOCK (8) Sick sinus syndrome Code(s): I49.5 - SICK SINUS SYNDROME (9) ASHD (arteriosclerotic heart disease) Code(s): I25.10 - ATHSCL HEART DISEASE OF [place] CORONARY ARTERY W/O ANG PCTRS (10) COPD (chronic obstructive pulmonary disease) Code(s): J44.9 - CHRONIC OBSTRUCTIVE PULMONARY DISEASE, UNSPECIFIED Qualifiers: COPD type: unspecified COPD Qualified Code(s): J44.9 - Chronic obstructive pulmonary disease, unspecified (11) Diabetes mellitus Code(s): E11.9 - TYPE 2 DIABETES MELLITUS WITHOUT COMPLICATIONS (12) Dyspnea Code(s): R06.00 - DYSPNEA, UNSPECIFIED Qualifiers: Dyspnea type: dyspnea on exertion Qualified Code(s): R06.09 - Other forms of dyspnea (13) IDDM (insulin dependent diabetes mellitus) Code(s): E11.9 - TYPE 2 DIABETES MELLITUS WITHOUT COMPLICATIONS; Z79.4 - [facility] (CURRENT) USE OF INSULIN (14) Peripheral edema Code(s): R60.9 - EDEMA, UNSPECIFIED (15) Sleep apnea Code(s): G47.30 - SLEEP APNEA, UNSPECIFIED Qualifiers: Sleep apnea type: unspecified type Qualified Code(s): G47.30 - Sleep apnea , unspecified (16) Pneumonia Code(s): J18.9 - PNEUMONIA, UNSPECIFIED ORGANISM (17) Presence of permanent cardiac pacemaker Code(s): Z95.0 - PRESENCE OF CARDIAC PACEMAKER Assessment/Plan ASSESSMENT AND PLAN: Acute Hypoxic and Hypercapneic Respiratory Failure improved Pneumonia Cellulitis Staph Bacteremia Septic Shock resolving Lactic Acidosis resolved Acute Kidney Injury improving Elevated LFTs likely Ischemic Injury LV Systolic Dysfunction Atrial Fibrillation CAD HTN DM Hyperlipidemia OSAS Anemia - abx - monitor urine output, creatinine - O2 to keep Spo2 >90% - monitor lytes - anticoagulation - DVT/GI prophylaxis - NIPPV QHS and PRN - Aspiration precautions - monitor h+h DR STAFFORD
[2018-07-26] MEDS: VANCOMYCIN 1,250 MG in DEXTROSE 5%-WATER - 250 ML IVPB SCH (15:33)
[2018-07-26] MEDS: RIVAROXABAN 20 MG TABLET PO SCH (17:49)
[2018-07-26] MEDS ORDERED: INSULIN (NOVOLOG) ASPART 100 UNITS/ML 10ML VIAL ONE (20:21)
[2018-07-26] MEDS: ATORVASTATIN CA 10 MG TABLET (FP) PO SCH (21:32)
[2018-07-26] MEDS: SENNOSIDES 8.6MG TABLET (FP) PO SCH (21:42)
[2018-07-27] MEDS: PIPERACILLIN/TAZOB 3.375 GM 3.375 GM in DEXTROSE 5%-WATER - 50 ML IVPB SCH ×3 (01:33→18:13)
[2018-07-27] MEDS: HEPARIN NA (PORCINE) 5,000 UNITS/ML 1ML VIAL SQ SCH ×2 (06:04→14:23)
[2018-07-27] MEDS: DOCUSATE SODIUM 100 MG CAPSULE (FP) PO SCH ×3 (06:04→21:22)
[2018-07-27] MEDS: INSULIN (LEVEMIR) 100 UNITS/ML UNITS SQ SCH (06:06)
[2018-07-27] MEDS: INSULIN SLIDING SCALE (NOVOLOG) 1 VIAL SQ SCH ×3 (06:06→16:39)
[2018-07-27] MEDS: LEVOTHYROXINE NA 50 MCG TABLET (FP) PO SCH (06:12)
[2018-07-27 08:20] LABS: HEMATOCRIT 23.1 % (35.4-49); HEMOGLOBIN 7.5 GM/dL (11.7-16.9); MCH 33.7 pg (25.7-33.7); MCHC 32.6 g/dl (32.0-35.9); MEAN CELL VOLUME 103.3 fl (80-96); MEAN PLT VOLUME 8.7 fl (7.5-11.1); PLATELET COUNT 288 K/MM3 (134-434); RBC 2.24 M/mm3 (4.00-5.60); RDW 17.9 % (11.9-15.9); WHITE BLOOD COUNT 5.4 K/mm3 (4.0-10.0)
[2018-07-27 08:34] LABS: ANION GAP 5 MMOL/L (8-16); BLOOD UREA NITROGEN 17 mg/dL (7-18); CALCIUM 7.8 mg/dL (8.5-10.1); CHLORIDE 102 mmol/L (98-107); CO2 31 mmol/L (21-32); CREATININE 0.9 mg/dL (0.55-1.3); GLUCOSE,RANDOM 156 mg/dL (74-106); POTASSIUM 4.1 mmol/L (3.5-5.1); SODIUM 139 mmol/L (136-145)
[2018-07-27] MEDS ORDERED: PT OWN MED DRAWER 7, Y5N ONE ×2 (10:41→21:20)
[2018-07-27] MEDS ORDERED: PIPERACILLIN/TAZOBACTAM 3.375 GM VIAL IVPB ONE ×2 (10:41→18:09)
[2018-07-27] MEDS ORDERED: DEXTROSE 5%-WATER - 50 ML IVPB ONE ×2 (10:42→18:09)
[2018-07-27] MEDS: FUROSEMIDE 20 MG TABLET (FP) PO SCH (10:47)
[2018-07-27] MEDS: FERROUS SO4 325 MG TABLET (FP) PO SCH (10:47)
[2018-07-27] MEDS: PANTOPRAZOLE 40 MG TABLET (FP) PO SCH (10:48)
[2018-07-27] MEDS: NAPH,MB-DB/K PH,MBDB POWDER PACKET PO SCH (10:48)
[2018-07-27] MEDS: POLYETHYLENE GLYCOL 3350 119 GM BTL PO SCH ×2 (10:48→21:22)
[2018-07-27] MEDS: COLLAGENASE CLOSTRIDIUM HIST. 30 GRAMS TUBE TP SCH (10:49)
--- NOTE | 2018-07-27 10:50 | PN ---
Progress Note (short form) - Note Progress Note: Pulmonary awake,still confused,-resp distress vss Constitutional: Yes: Well Nourished, Calm Eyes: Yes: WNL HENT: Yes: WNL Neck: Yes: WNL Cardiovascular: Yes: Pulse Irregular, S1, S2 Respiratory: Yes: Diminished Gastrointestinal: Yes: Normal Bowel Sounds, Soft Extremities: Yes: WNL Edema: Yes MEDS/NOTES/IMAGES/MICRO REVIEWED ASSESSMENT AND PLAN Acute Hypoxic and Hypercapneic Respiratory Failure improved Pneumonia Cellulitis Staph Bacteremia Septic Shock resolving Lactic Acidosis resolved Acute Kidney Injury improving Elevated LFTs likely Ischemic Injury LV Systolic Dysfunction Atrial Fibrillation CAD HTN DM Hyperlipidemia OSAS Anemia - abx - monitor urine output, creatinine - O2 to keep Spo2 >90% - monitor lytes - anticoagulation - DVT/GI prophylaxis - NIPPV QHS and PRN - Aspiration precautions - monitor h+h Aisha CALDWELL MD
[2018-07-27] MEDS: LOSARTAN POTASSIUM 25 MG TABLET PO SCH (10:55)
[2018-07-27] MEDS: CARVEDILOL 3.125 MG TABLET (FP) NGT SCH (10:55)
--- NOTE | 2018-07-27 11:31 | PN ---
Progress Note (short form) - Note Progress Note: No fever or chillas . no pain , no SOB. no events per RN. has BMs Last Vital Signs Temp Pulse Resp BP Pulse Ox 99.3 F 81 20 113/65 99 07/27/18 07:34 07/27/18 07:34 07/27/18 07:34 07/27/18 07:34 07/26/18 22:00 Laboratory Results - last 24 hr 07/26/18 07/26/18 07/27/18 12:34 17:48 06:05 WBC RBC Hgb Hct MCV MCH MCHC RDW Plt Count MPV Sodium Potassium Chloride Carbon Dioxide Anion Gap BUN Creatinine Creat Clearance w eGFR POC Glucometer 308 203 176 Random Glucose Calcium 07/27/18 07/27/18 07/27/18 06:30 06:30 11:02 WBC 5.4 RBC 2.24 L Hgb 7.5 L Hct 23.1 L MCV 103.3 H MCH 33.7 MCHC 32.6 RDW 17.9 H Plt Count 288 MPV 8.7 Sodium 139 Potassium 4.1 Chloride 102 Carbon Dioxide 31 Anion Gap 5 L BUN 17 Creatinine 0.9 Creat Clearance w eGFR > 60 POC Glucometer 241 Random Glucose 156 H Calcium 7.8 L wake, alert and cooperative. CV: RRR, 3/6 SM RUSB and LUSB Lungs: CTAB Abd: soft, NT, ND , NL BS. Ext:b/l leg wounds with dry intact dressing , not examined today. feet with improved edema . no erythema ASSESSMENT AND PLAN: 83 y/o man with h/o CAD, s/p stents, permanent A fib, Systolic heart failure, HTN, HLP, DM , CKD , Anemia, COPD,recent admission for acute CHF exacerbation who was sent from [place] for LE pain and was found to have septic shock form LE cellulites, and went into hypoxic resp failure 1- Hypoxic resp failure, s/p extubation 2- s/p septic shock: resolved 3- Acute systolic and diastolic heart failure: improved 4- LE cellulites : improved 5- Transaminitis 6- sick euthyroid syndrome 7- DM. hypoglycemia 8- Hypernatremia 9- Gastritis , and acute anemia Plan; - cont lasix at 20 . - cont vanco and zosyn, day 17 today - cont BB , and losartan - monitor Hb - cont levemir at 10. no more hypoglycemia - cont synthroid - fluctuating Hb. No evidence of bleed - DVT pX - cont neutraphos and rpeat Phos in am Dispo: HLOC ASSESSMENT AND PLAN: Visit type - Emergency Visit Emergency Visit: Yes ED Registration Date: 07/10/18 Care time: The patient presented to the Emergency Department on the above date and was hospitalized for further evaluation of their emergent condition. - New Patient This patient is new to me today: Yes Date on this admission: 07/27/18 - Critical Care Critical Care patient: No
--- NOTE | 2018-07-27 14:03 | PN ---
Progress Note, Physician History of Present Illness: doing well no issues - Current Medication List Current Medications: Active Medications Al Hydroxide/Mg Hydroxide (Mylanta Oral Suspension -) 30 ml PO Q6H PRN PRN Reason: INDIGESTION Atorvastatin Calcium (Lipitor -) 10 mg PO HS [facility] Last Admin: 07/26/18 21:32 Dose: 10 mg Carvedilol (Coreg -) 3.125 mg PO BID [facility] Collagenase (Santyl -) 1 applic TP DAILY [facility]; Protocol Last Admin: 07/27/18 10:49 Dose: 1 applic Docusate Sodium (Colace -) 100 mg PO TID [facility] Last Admin: 07/27/18 13:37 Dose: Not Given Emollient Ointment (Aquaphor -) 1 applic TP DAILY [facility] Ferrous Sulfate (Feosol -) 325 mg PO DAILY [facility] Last Admin: 07/27/18 10:47 Dose: 325 mg Furosemide (Lasix -) 20 mg PO DAILY [facility] Last Admin: 07/27/18 10:47 Dose: 20 mg Heparin Sodium (Porcine) (Heparin -) 5,000 unit SQ TID [facility] Last Admin: 07/27/18 06:04 Dose: 5,000 unit Vancomycin HCl 1,250 mg/ (Dextrose) 250 mls @ 166.667 mls/hr IVPB Q24H [facility]; Protocol Last Admin: 07/26/18 15:33 Dose: 166.667 mls/hr Piperacillin Sod/Tazobactam (Sod 3.375 gm/ Dextrose) 50 mls @ 100 mls/hr IVPB Q8H-IV [facility]; Protocol Last Admin: 07/27/18 10:50 Dose: 100 mls/hr Insulin Aspart (Novolog Vial Sliding Scale -) 1 vial SQ TIDAC [facility]; Protocol Last Admin: 07/27/18 11:02 Dose: 2 units Insulin Detemir (Levemir Vial) 10 units SQ AM [facility] Last Admin: 07/27/18 06:06 Dose: 10 units Levothyroxine Sodium (Synthroid -) 50 mcg PO DAILY@0700 [facility] Last Admin: 07/27/18 06:12 Dose: 50 mcg Losartan Potassium (Cozaar -) 50 mg PO DAILY [facility] Last Admin: 07/27/18 10:55 Dose: 50 mg Pantoprazole Sodium (Protonix -) 40 mg PO DAILY [facility] Last Admin: 07/27/18 10:48 Dose: 40 mg Polyethylene Glycol (Miralax (For Daily Use) -) 17 gm PO BID [facility] Last Admin: 07/27/18 10:48 Dose: Not Given Potassium Phos/Sodium Phos (Phos-Nak Packet -) 1 packet PO DAILY [facility] Last Admin: 07/27/18 10:48 Dose: 1 packet Rivaroxaban (Xarelto -) 20 mg PO DAILY@1800 [facility] Last Admin: 07/26/18 17:49 Dose: 20 mg Senna (Senna -) 1 tab PO HS [facility] Last Admin: 07/26/18 21:42 Dose: Not Given - Objective Vital Signs: Vital Signs Temperature 97.3 F L 07/27/18 10:00 Pulse Rate 62 07/27/18 10:00 Respiratory Rate 20 07/27/18 10:00 Blood Pressure 165/80 07/27/18 10:00 O2 Sat by Pulse Oximetry (%) 100 07/27/18 10:00 Constitutional: Yes: No Distress, Calm Eyes: Yes: Conjunctiva Clear Cardiovascular: Yes: S1, S2 Respiratory: Yes: Regular, CTA Bilaterally Gastrointestinal: Yes: Normal Bowel Sounds, Soft Musculoskeletal: Yes: WNL Extremities: Yes: WNL Neurological: Yes: Alert Psychiatric: Yes: Alert Labs: CBC, BMP 07/27/18 06:30 07/27/18 06:30 INR, PTT INR 1.28 (0.83-1.09) H 07/18/18 05:00 Fibrinogen 423.0 mg/dL (238-498) 07/12/18 05:30 Assessment/Plan septic shock Systolic / Diastolic CHF COPD HTN HLD CAD S/P PCI x 7 PPM Atrial Fibrillation DM Chronic venous insufficiency BPH s/p TURP CKD Anemia cellulitis of the legs plan continue abx complete the course physio rest as per the team as per cardio wound improving stop abx once 14 days are over
--- NOTE | 2018-07-27 14:52 | PN ---
Progress Note (short form) - Note Progress Note: Chief Complaint: Events noted, notes reviewed, awake and alert, denies any chest pain or dyspnea, in no distress History of Present Illness: Seen and examined. Events noted, notes reviewed, awake and alert, denies any chest pain or dyspnea, in no distress Echocardiography dated 05/02/2018 revealed systolic LV dysfunction with LVEF 40- 45%, moderate (mean gradient of 27.7 and peak gradient 46 mmHg, LYNETTE of 0.78 cm2), mild MR, mild to moderate TR Medications: Current Medications Al Hydroxide/Mg Hydroxide (Mylanta Oral Suspension -) 30 ml PO Q6H PRN PRN Reason: INDIGESTION Atorvastatin Calcium (Lipitor -) 10 mg PO HS [facility] Last Admin: 07/26/18 21:32 Dose: 10 mg Carvedilol (Coreg -) 3.125 mg PO BID [facility] Collagenase (Santyl -) 1 applic TP DAILY [facility]; Protocol Last Admin: 07/27/18 10:49 Dose: 1 applic Docusate Sodium (Colace -) 100 mg PO TID [facility] Last Admin: 07/27/18 13:37 Dose: Not Given Emollient Ointment (Aquaphor -) 1 applic TP DAILY [facility] Ferrous Sulfate (Feosol -) 325 mg PO DAILY [facility] Last Admin: 07/27/18 10:47 Dose: 325 mg Furosemide (Lasix -) 20 mg PO DAILY [facility] Last Admin: 07/27/18 10:47 Dose: 20 mg Vancomycin HCl 1,250 mg/ (Dextrose) 250 mls @ 166.667 mls/hr IVPB Q24H [facility]; Protocol Last Admin: 07/26/18 15:33 Dose: 166.667 mls/hr Piperacillin Sod/Tazobactam (Sod 3.375 gm/ Dextrose) 50 mls @ 100 mls/hr IVPB Q8H-IV [facility]; Protocol Last Admin: 07/27/18 10:50 Dose: 100 mls/hr Insulin Aspart (Novolog Vial Sliding Scale -) 1 vial SQ TIDAC [facility]; Protocol Last Admin: 07/27/18 11:02 Dose: 2 units Insulin Detemir (Levemir Vial) 10 units SQ AM [facility] Last Admin: 07/27/18 06:06 Dose: 10 units Levothyroxine Sodium (Synthroid -) 50 mcg PO DAILY@0700 [facility] Last Admin: 07/27/18 06:12 Dose: 50 mcg Losartan Potassium (Cozaar -) 50 mg PO DAILY [facility] Last Admin: 07/27/18 10:55 Dose: 50 mg Pantoprazole Sodium (Protonix -) 40 mg PO DAILY [facility] Last Admin: 07/27/18 10:48 Dose: 40 mg Polyethylene Glycol (Miralax (For Daily Use) -) 17 gm PO BID [facility] Last Admin: 07/27/18 10:48 Dose: Not Given Potassium Phos/Sodium Phos (Phos-Nak Packet -) 1 packet PO DAILY [facility] Last Admin: 07/27/18 10:48 Dose: 1 packet Rivaroxaban (Xarelto -) 20 mg PO DAILY@1800 [facility] Last Admin: 07/26/18 17:49 Dose: 20 mg Senna (Senna -) 1 tab PO HS [facility] Last Admin: 07/26/18 21:42 Dose: Not Given Vital Signs: Last Vital Signs Temp Pulse Resp BP Pulse Ox 97.3 F L 62 20 165/80 100 07/27/18 10:00 07/27/18 10:00 07/27/18 10:00 07/27/18 10:00 07/27/18 10:00 Intake & Output 07/24/18 07/25/18 07/26/18 07/27/18 23:59 23:59 23:59 23:59 Intake Total 950 450 900 50 Output Total 850 400 600 50 Balance 100 50 300 0 Weight 168 lb 3.2 oz 161 lb 11.2 oz 163 lb 3.2 oz Neck: Supple Negative JVD No Bruit Respiratory: Diminished Breath Sounds at the Bases Cardiovascular: S1 S2 Regularly Rate and Rhythm Grade 2-3/6 SM Gastrointestinal: Soft Distended Benign Normal Bowel Sounds Ext: Negative Edema Labs: CBC, BMP 07/27/18 06:30 07/27/18 06:30 Assessment/Plan ASSESSMENT: 1. Post respiratory failure/post acute Hypoxic-Hypercapneic Respiratory failure , off of mechanical ventilation 2. Post septic shock/pneumonia, cellulitis and staph bacteremia 3. Systolic/diastolic LV dysfunction with acute on chronic class II-III NYHA classification LV failure, resolved 4. CAD post PCI/stent, angina pectoris 5. Persistent atrial fibrillation [id number] 6 on A/C with DOAC's/Xarelto 6. MR mild 7. TR mild to moderate 8. 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 AV block post PPM 10. HTN 11. DM 12. Hypercholesterolemia 13. COPD 14. Shock liver resolving 15. CKD, pre-renal azotemia, resolved 16. Anemia PLAN: 1. Continue Coreg and titrate dosage as needed and tolerated, hemodynamics permitting 2. Continue Cozaar with caution and close monitoring of renal function and titrate dosage as needed and tolerated, hemodynamics permitting 3. Continue Xarelto with caution and close monitoring of Hg, transfuse to maintain Hg equal or > 8.0 4. Diuretics/Lasix with close monitoring of renal function 5. Continue Lipitor 6. Antibiotics as per the primary team Vasquez Huynh M.D.
[2018-07-27] MEDS: VANCOMYCIN 1,250 MG in DEXTROSE 5%-WATER - 250 ML IVPB SCH (15:47)
[2018-07-27] MEDS: MINERAL OIL/PET HY-PHL TOPICAL OINTMENT 454 GM JAR TP SCH (16:37)
[2018-07-27] MEDS: RIVAROXABAN 20 MG TABLET PO SCH (18:13)
[2018-07-27] MEDS: ATORVASTATIN CA 10 MG TABLET (FP) PO SCH (21:22)
[2018-07-27] MEDS: CARVEDILOL 3.125 MG TABLET (FP) PO SCH (21:22)
[2018-07-27] MEDS: SENNOSIDES 8.6MG TABLET (FP) PO SCH (21:23)
[2018-07-28] MEDS ORDERED: PIPERACILLIN/TAZOBACTAM 3.375 GM VIAL IVPB ONE (01:29)
[2018-07-28] MEDS ORDERED: DEXTROSE 5%-WATER - 50 ML IVPB ONE (01:30)
[2018-07-28] MEDS: PIPERACILLIN/TAZOB 3.375 GM 3.375 GM in DEXTROSE 5%-WATER - 50 ML IVPB SCH (02:03)
[2018-07-28] MEDS ORDERED: ACETAMINOPHEN 325 MG TABLET (FP) PO ONE (06:15)
[2018-07-28 06:27] VITALS: TEMP 97.9
[2018-07-28] MEDS: DOCUSATE SODIUM 100 MG CAPSULE (FP) PO SCH (06:27)
[2018-07-28] MEDS ORDERED: INSULIN (LEVEMIR) 100 UNITS/ML UNITS SQ ONE (06:47)
[2018-07-28] MEDS: LEVOTHYROXINE NA 50 MCG TABLET (FP) PO SCH (06:51)
[2018-07-28] MEDS: INSULIN SLIDING SCALE (NOVOLOG) 1 VIAL SQ SCH ×2 (06:59→12:18)
[2018-07-28] MEDS: INSULIN (LEVEMIR) 100 UNITS/ML UNITS SQ SCH (06:59)
--- NOTE | 2018-07-28 07:42 | PN ---
Teaching Attending Note Name of Resident: Alycia Steve ATTENDING PHYSICIAN STATEMENT I saw and evaluated the patient. I reviewed the resident's note and discussed the case with the resident. I agree with the resident's findings and plan as documented. SUBJECTIVE: Patient is feeling better with no acute distress, no fever or chills. OBJECTIVE: Vital Signs Temperature 97.9 F 07/28/18 06:00 Pulse Rate 63 07/28/18 06:00 Respiratory Rate 20 07/28/18 06:00 Blood Pressure 137/68 07/28/18 06:00 O2 Sat by Pulse Oximetry (%) 100 07/27/18 22:00 GENERAL: The patient is awake, alert, NAD HEAD: Normal with no signs of trauma. EYES: PERRL, extraocular movements intact, LUNGS: Breath sounds equal, clear to auscultation bilaterally, no W/R/R, no accessory muscle use. HEART: Regular rate and rhythm, S1, S2 without murmur, rub or gallop. ABDOMEN: Soft, nontender, nondistended, normoactive bowel sounds, no guarding EXTREMITIES: 2+ pulses, warm, well-perfused, no edema. PSYCH: Normal mood, normal affect. SKIN: Warm, dry, normal turgor, no rashes or lesions noted CBCD WBC 5.4 K/mm3 (4.0-10.0) 07/27/18 06:30 RBC 2.24 M/mm3 (4.00-5.60) L 07/27/18 06:30 Hgb 7.5 GM/dL (11.7-16.9) L 07/27/18 06:30 Hct 23.1 % (35.4-49) L 07/27/18 06:30 MCV 103.3 fl (80-96) H 07/27/18 06:30 MCHC 32.6 g/dl (32.0-35.9) 07/27/18 06:30 RDW 17.9 % (11.9-15.9) H 07/27/18 06:30 Plt Count 288 K/MM3 (134-434) 07/27/18 06:30 MPV 8.7 fl (7.5-11.1) 07/27/18 06:30 CMP Sodium 139 mmol/L (136-145) 07/27/18 06:30 Potassium 4.1 mmol/L (3.5-5.1) 07/27/18 06:30 Chloride 102 mmol/L (98-107) 07/27/18 06:30 Carbon Dioxide 31 mmol/L (21-32) 07/27/18 06:30 Anion Gap 5 MMOL/L (8-16) L 07/27/18 06:30 BUN 17 mg/dL (7-18) 07/27/18 06:30 Creatinine 0.9 mg/dL (0.55-1.3) 07/27/18 06:30 Creat Clearance w eGFR > 60 (>60) 07/27/18 06:30 Random Glucose 156 mg/dL (74-106) H 07/27/18 06:30 Calcium 7.8 mg/dL (8.5-10.1) L 07/27/18 06:30 Total Bilirubin 0.7 mg/dL (0.2-1) 07/26/18 09:00 AST 30 U/L (15-37) 07/26/18 09:00 ALT 46 U/L (13-61) 07/26/18 09:00 Alkaline Phosphatase 140 U/L (45-117) H 07/26/18 09:00 Total Protein 5.7 g/dl (6.4-8.2) L 07/26/18 09:00 Albumin 2.1 g/dl (3.4-5.0) L 07/26/18 09:00 CARDIAC ENZYMES Creatine Kinase 179 IU/L (26-308) 07/10/18 16:00 Troponin I < 0.02 ng/ml (0.00-0.05) 07/10/18 16:00 Current Medications Generic Name Dose Route Start Last Admin Trade Name Freq PRN Reason Stop Dose Admin Al Hydroxide/Mg Hydroxide 30 ml 07/19/18 18:44 Mylanta Oral Suspension - PO Q6H PRN INDIGESTION Atorvastatin Calcium 10 mg 07/26/18 22:00 07/27/18 21:22 Lipitor - PO 10 mg HS AYDIN Administration Carvedilol 3.125 mg 07/27/18 11:27 07/27/18 21:22 Coreg - PO 3.125 mg BID AYDIN Administration Collagenase 1 applic 07/22/18 11:30 07/27/18 10:49 Santyl - TP 1 applic DAILY AYDIN Administration Protocol Docusate Sodium 100 mg 11/15/18 14:00 07/28/18 06:27 Colace - PO Not Given TID AYDIN Emollient Ointment 1 applic 07/27/18 12:15 07/27/18 16:37 Aquaphor - TP 1 applic DAILY AYDIN Administration Ferrous Sulfate 325 mg 07/20/18 10:00 07/27/18 10:47 Feosol - PO 325 mg DAILY AYDIN Administration Furosemide 20 mg 07/22/18 10:00 07/27/18 10:47 Lasix - PO 20 mg DAILY AYDIN Administration Insulin Aspart 1 vial 07/25/18 16:30 07/28/18 06:59 Novolog Vial Sliding Scale - SQ 2 units TIDAC [facility] Administration Protocol Insulin Detemir 10 units 07/24/18 10:24 07/28/18 06:59 Levemir Vial SQ 10 units AM AYDIN Administration Levothyroxine Sodium 50 mcg 07/20/18 07:00 07/28/18 06:51 Synthroid - PO 50 mcg DAILY@0700 AYDIN Administration Losartan Potassium 50 mg 07/24/18 10:00 07/27/18 10:55 Cozaar - PO 50 mg DAILY AYDIN Administration Pantoprazole Sodium 40 mg 07/22/18 10:00 07/27/18 10:48 Protonix - PO 40 mg DAILY AYDIN Administration Polyethylene Glycol 17 gm 07/19/18 22:00 07/27/18 21:22 Miralax (For Daily Use) - PO Not Given BID [facility] Potassium Phos/Sodium Phos 1 packet 07/24/18 10:30 07/27/18 10:48 Phos-Nak Packet - PO 1 packet DAILY AYDIN Administration Rivaroxaban 20 mg 07/20/18 18:00 07/27/18 18:13 Xarelto - PO 20 mg DAILY@1800 [facility] Administration Senna 1 tab 07/19/18 22:00 07/27/18 21:23 Senna - PO Not Given HS [facility] ASSESSMENT AND PLAN: Patient is an 83 y/o man with h/o CAD, s/p stents, permanent A fib, Systolic heart failure, HTN, HLP, DM , CKD , Anemia, COPD, recent admission for acute CHF exacerbation who was sent from [place] for LE pain and was found to have septic shock form LE cellulites, and went into hypoxic resp failure # Acute Hypoxic resp failure, s/p extubation , patient is comfortable # s/p septic shock: resolved completed IV vanco and zosyn. # Acute diastolic and systolic heart failure: improved on BB,Losartan and Diuretics continue # LE cellulites : improved on IV Zosyn and Vancomycin # Transaminitis improved # sick euthyroid syndrome monitor # T2DM on sliding scale and on levemir 10 # Hypernatremia improved # Gastritis with acute anemia , hgb 7.3 monitor puree diet with honey thick liquids resume DVT Px: heparin will discharge the patient to rehab.
[2018-07-28 07:58] LABS: BASO % 2.2 % (0-2.0); EOS % 8.1 % (0-4.5); HEMATOCRIT 25.4 % (35.4-49); HEMOGLOBIN 8.3 GM/dL (11.7-16.9); LYMPH % 12.4 % (8-40); MCH 33.7 pg (25.7-33.7); MCHC 32.6 g/dl (32.0-35.9); MEAN CELL VOLUME 103.1 fl (80-96); MEAN PLT VOLUME 8.6 fl (7.5-11.1); MONO % 12.5 % (3.8-10.2); NEUT % 64.8 % (42.8-82.8); PLATELET COUNT 305 K/MM3 (134-434); RBC 2.46 M/mm3 (4.00-5.60); WHITE BLOOD COUNT 5.6 K/mm3 (4.0-10.0)
[2018-07-28 08:23] LABS: PHOSPHOROUS 2.3 mg/dL (2.5-4.9); POTASSIUM 4.4 mmol/L (3.5-5.1)
--- NOTE | 2018-07-28 09:21 | PN ---
Progress Note, Physician History of Present Illness: stable no new issues - Current Medication List Current Medications: Active Medications Al Hydroxide/Mg Hydroxide (Mylanta Oral Suspension -) 30 ml PO Q6H PRN PRN Reason: INDIGESTION Atorvastatin Calcium (Lipitor -) 10 mg PO HS [facility] Last Admin: 07/27/18 21:22 Dose: 10 mg Carvedilol (Coreg -) 3.125 mg PO BID [facility] Last Admin: 07/27/18 21:22 Dose: 3.125 mg Collagenase (Santyl -) 1 applic TP DAILY [facility]; Protocol Last Admin: 07/27/18 10:49 Dose: 1 applic Docusate Sodium (Colace -) 100 mg PO TID [facility] Last Admin: 07/28/18 06:27 Dose: Not Given Emollient Ointment (Aquaphor -) 1 applic TP DAILY [facility] Last Admin: 07/27/18 16:37 Dose: 1 applic Ferrous Sulfate (Feosol -) 325 mg PO DAILY [facility] Last Admin: 07/27/18 10:47 Dose: 325 mg Furosemide (Lasix -) 20 mg PO DAILY [facility] Last Admin: 07/27/18 10:47 Dose: 20 mg Insulin Aspart (Novolog Vial Sliding Scale -) 1 vial SQ TIDAC [facility]; Protocol Last Admin: 07/28/18 06:59 Dose: 2 units Insulin Detemir (Levemir Vial) 10 units SQ AM [facility] Last Admin: 07/28/18 06:59 Dose: 10 units Levothyroxine Sodium (Synthroid -) 50 mcg PO DAILY@0700 [facility] Last Admin: 07/28/18 06:51 Dose: 50 mcg Losartan Potassium (Cozaar -) 50 mg PO DAILY [facility] Last Admin: 07/27/18 10:55 Dose: 50 mg Pantoprazole Sodium (Protonix -) 40 mg PO DAILY [facility] Last Admin: 07/27/18 10:48 Dose: 40 mg Polyethylene Glycol (Miralax (For Daily Use) -) 17 gm PO BID [facility] Last Admin: 07/27/18 21:22 Dose: Not Given Potassium Phos/Sodium Phos (Phos-Nak Packet -) 1 packet PO DAILY [facility] Last Admin: 07/27/18 10:48 Dose: 1 packet Rivaroxaban (Xarelto -) 20 mg PO DAILY@1800 [facility] Last Admin: 07/27/18 18:13 Dose: 20 mg Senna (Senna -) 1 tab PO HS [facility]IN Last Admin: 07/27/18 21:23 Dose: Not Given - Objective Vital Signs: Vital Signs Temperature 97.9 F 07/28/18 06:00 Pulse Rate 63 07/28/18 06:00 Respiratory Rate 20 07/28/18 06:00 Blood Pressure 137/68 07/28/18 06:00 O2 Sat by Pulse Oximetry (%) 100 07/27/18 22:00 Constitutional: Yes: No Distress, Calm Cardiovascular: Yes: S1, S2 Respiratory: Yes: Regular, CTA Bilaterally Gastrointestinal: Yes: Normal Bowel Sounds, Soft Musculoskeletal: Yes: WNL Extremities: Yes: Other Edema: LLE: 1+, RLE: 1+ Wound/Incision: Yes: Dressing Dry and Intact Labs: CBC, BMP 07/28/18 06:40 07/28/18 06:40 INR, PTT INR 1.28 (0.83-1.09) H 07/18/18 05:00 Fibrinogen 423.0 mg/dL (238-498) 07/12/18 05:30 Assessment/Plan septic shock Systolic / Diastolic CHF COPD HTN HLD CAD S/P PCI x 7 PPM Atrial Fibrillation DM Chronic venous insufficiency BPH s/p TURP CKD Anemia cellulitis of the legs plan off of abx no other issues awaiting final plan wound care
[2018-07-28] MEDS: LOSARTAN POTASSIUM 25 MG TABLET PO SCH (10:06)
[2018-07-28] MEDS: CARVEDILOL 3.125 MG TABLET (FP) PO SCH (10:07)
[2018-07-28] MEDS: FERROUS SO4 325 MG TABLET (FP) PO SCH (10:07)
[2018-07-28] MEDS: FUROSEMIDE 20 MG TABLET (FP) PO SCH (10:07)
[2018-07-28] MEDS: POLYETHYLENE GLYCOL 3350 119 GM BTL PO SCH (10:08)
[2018-07-28] MEDS: PANTOPRAZOLE 40 MG TABLET (FP) PO SCH (10:08)
[2018-07-28] MEDS: NAPH,MB-DB/K PH,MBDB POWDER PACKET PO SCH (10:08)
[2018-07-28] MEDS ORDERED: LIDOCAINE 5% TOPICAL PATCH TP ONE (10:15)
--- NOTE | 2018-07-28 11:33 | PN ---
Progress Note (short form) - Note Progress Note: Pulmonary awake,alert vss Constitutional: Yes: Well Nourished, Calm Eyes: Yes: WNL HENT: Yes: WNL Neck: Yes: WNL Cardiovascular: Yes: Pulse Irregular, S1, S2 Respiratory: Yes: Diminished Gastrointestinal: Yes: Normal Bowel Sounds, Soft Extremities: Yes: WNL Edema: Yes MEDS/NOTES/IMAGES/MICRO REVIEWED ASSESSMENT AND PLAN Acute Hypoxic and Hypercapneic Respiratory Failure improved Pneumonia Cellulitis Staph Bacteremia Septic Shock resolving Lactic Acidosis resolved Acute Kidney Injury improving Elevated LFTs likely Ischemic Injury LV Systolic Dysfunction Atrial Fibrillation CAD HTN DM Hyperlipidemia OSAS Anemia - monitor urine output, creatinine - O2 to keep Spo2 >90% - monitor lytes - anticoagulation - DVT/GI prophylaxis - NIPPV QHS and PRN - Aspiration precautions - monitor h+h Aisha CALDWELL MD
[2018-07-28] MEDS: COLLAGENASE CLOSTRIDIUM HIST. 30 GRAMS TUBE TP SCH (12:02)
[2018-07-28] MEDS: MINERAL OIL/PET HY-PHL TOPICAL OINTMENT 454 GM JAR TP SCH (12:05)
--- NOTE | 2018-07-28 13:29 | DS ---
Physical Exam: SUBJECTIVE: Patient is a 83 y/o male with a history of CAD s/p stents, afib, systolic HF, HTN, HLD, DM, CKD, COPD who is here for LE cellulitis, he was found to have hypoxic respiratory failure. He has no complaints on exam, no acute events overnight. OBJECTIVE: Vital Signs Temperature 97.9 F 07/28/18 06:00 Pulse Rate 63 07/28/18 06:00 Respiratory Rate 20 07/28/18 06:00 Blood Pressure 137/68 07/28/18 06:00 O2 Sat by Pulse Oximetry (%) 100 07/27/18 22:00 PHYSICAL EXAM GENERAL: The patient is awake, alert, a HEAD: Normal with no signs of trauma. EYES: PERRL, extraocular movements intact, LUNGS: Breath sounds equal, clear to auscultation bilaterally, no wheezes, no crackles, no accessory muscle use. HEART: Regular rate and rhythm, S1, S2 without murmur, rub or gallop. ABDOMEN: Soft, nontender, nondistended, normoactive bowel sounds, no guarding EXTREMITIES: 2+ pulses, warm, well-perfused, no edema. PSYCH: Normal mood, normal affect. SKIN: Warm, dry, normal turgor, no rashes or lesions noted HOSPITAL COURSE: Date of Admission:07/10/18 Patient was admitted to the hospital for sepsis 2/2 to cellulitis. Patients cellulitis was treated with 17 days of antibiotics Vancomycin and Zosyn. Patients white count resolved and remained afebrile. Patients wound culture was positive for: pseudomas aeuroginosa, Klebsiella, MRSA, and enterococcus faecalis. Blood culture showed no growth and urine culture was positive for Staphyloccocus Warneri. During patients initial presentation of sepsis his MAP dropped below 65 and was placed on levophed. Patient was able to be weaned off and patients blood pressure have stabalized. Condition continued to deteriorate and patient was intubated on 07/12. Patient successfully extubated on 07/17. Patient's oxygenation saturation remained above 95% on 3 L NC. During patients ICU stay he had an episode of coffee ground emesis. His Hgb dropped to 6.5 and . Patient had a positive FOBT. GI was consulted and recommended protonix. He received one unit of PRBC on 07/13. Throughout patients stay his Hgb remained stable. Patients had an episode of transaminitis likely 2/2 to ischemia. His AST and ALT eventually normalized and his lipitor was able to be restarted. Patient was found to have an elevated TSH and endocrine was consulted. Patient was began on 50 mcg of levothyroxine. Instructed patient to repeat TSH in four weeks. Patients diabetes was treated with 10 units of levemir and Novolog. Patient had one episode with a sugar of 30, the sliding scale was readjusted and patient's glucose has remained stable. Head CT: no acute pathology Liver Ultrasound: R pleural effusion and ascites, thickened wall gallbladder with sludge Chest Xray: resolved pleural effusion, resolved CHF, bilateral bibasilar changes Date of Discharge: 07/28/18 Minutes to complete discharge: 45 Discharge Summary Reason For Visit: CONGESTIVE HEART FAILURE, HYPOTHYROIDISM, HIGH Current Active Problems Cellulitis (Acute) Atrial fibrillation with controlled ventricular rate (Chronic) CHF (congestive heart failure) (Chronic) Chronic anticoagulation (Chronic) Hypercholesterolemia (Chronic) Hypothyroid (Chronic) Presence of permanent cardiac pacemaker (Chronic) Condition: Good - Instructions Diet, Activity, Other Instructions: You presented to the hospital because you had an infection on your legs called cellulitis. This infection caused a worsening of your heart failure. To help with your breathing, you were intubated and sent to the intensive care unit (ICU ). The breathing tube was removed and you have since been able to breathe on your own. We gave you antibiotics to treat the infection and you have completed the course of antibiotics. You were found to have a low functioning thyroid. It is important you have a lab drawn in four weeks to monitor your thyroid function. For your Congestive Heart Failure the medications you will continue to take are : Carvedilol 3.125 mg by mouth twice a day Lasix 20 mg by mouth daily Atorvastatin 40 mg by mouth at night Losartan 50 mg by mouth daily To treat your atrial fibrillation (abnormal heart beat) you will continue to take: Xarelto 20 mg daily To treat your low thyroid you will now take: Levothyroxine 50 mcg by mouth once a day For your diabetes please continue to take: Levemir 10 units a day For your anemia (low hemoglobin) please continue to take: Ferrous Sulfate 325 mg by mouth daily For your constipation please continue to take: Colace 300 mg at bedside Miralax 17 mg twice a day by mouth Mylanta oral suspension to be taken by mouth as needed You should follow up with your Loan Officer to monitor your Congestive Heart Failure within one week. Please also follow up with your Primary Car Physician within one week. Please return to the ED if you have shortness of breath, chest pain, nausea, vomiting, or diarrhea. Referrals: Gabriel Gallardo MD [Staff Physician] - 1 Week Debra Rangel MD [Primary Care Provider] - 1 Week Raúl Duron MD [Staff Physician] - 1 Week Graeme Blake MD [Staff Physician] - 1 Week Disposition: NURSING HOME FACILITY - Home Medications Comprehensive Discharge Medication List: Ambulatory Orders Albuterol 2.5/Ipratropium 0.5 [Duoneb -] 1 neb IH QID 07/10/18 Atorvastatin Ca [Lipitor] 40 mg PO HS 07/10/18 Ferrous Sulfate [Feosol] 325 mg PO DAILY 07/10/18 Insulin Detemir [Levemir Flextouch] 10 unit SQ HS 07/10/18 Losartan Potassium [Cozaar -] 50 mg PO DAILY 07/10/18 Mag Hydrox/Al Hydrox/Simeth [Mylanta Oral Suspension -] 30 ml PO Q6H PRN Polyethylene Glycol 3350 [Miralax 119 gm Btl -] 17 gm PO BID 07/10/18 Rivaroxaban [Xarelto -] 20 mg PO DAILY 07/10/18 Sennosides [Senna] 17.2 mg PO HS 07/10/18 Atorvastatin Ca [Lipitor] 10 mg PO HS tablet 07/28/18 Carvedilol [Coreg -] 3.125 mg PO BID tablet 07/28/18 Collagenase Clostridium Hist. [Santyl -] 1 applic TP DAILY tube 07/28/18 Docusate Sodium [Colace -] 300 mg PO HS capsule 07/28/18 Furosemide [Lasix -] 20 mg PO DAILY tablet 07/28/18 Insulin (Levemir) [Levemir Vial] 10 units SQ AM units 07/28/18 Levothyroxine [Synthroid -] 50 mcg PO DAILY@0700 tablet 07/28/18 Lidocaine Patch Removal [Lidoderm Patch Removal] 1 each MC DAILY@2200 each Losartan Potassium [Cozaar -] 50 mg PO DAILY tablet 07/28/18 Mineral Oil/Pet Hy-Phl [Aquaphor -] 1 applic TP DAILY jar 07/28/18 Sennosides [Senna -] 1 tab PO HS tablet 07/28/18 This patient is new to me today: No Emergency Visit: No Critical Care patient: No - Discharge Referral Referred to [facility] No
--- NOTE | 2018-07-28 13:32 | PN ---
Progress Note (short form) - Note Progress Note: Chief Complaint: Events noted, notes reviewed, awake and alert, denies any chest pain or dyspnea, in no distress History of Present Illness: Seen and examined. Events noted, notes reviewed, awake and alert, denies any chest pain or dyspnea, in no distress Echocardiography dated 05/02/2018 revealed systolic LV dysfunction with LVEF 40- 45%, moderate (mean gradient of 27.7 and peak gradient 46 mmHg, LYNETTE of 0.78 cm2), mild MR, mild to moderate TR Medications: Current Medications Al Hydroxide/Mg Hydroxide (Mylanta Oral Suspension -) 30 ml PO Q6H PRN PRN Reason: INDIGESTION Atorvastatin Calcium (Lipitor -) 10 mg PO HS [facility] Last Admin: 07/27/18 21:22 Dose: 10 mg Carvedilol (Coreg -) 3.125 mg PO BID [facility] Last Admin: 07/28/18 10:07 Dose: 3.125 mg Collagenase (Santyl -) 1 applic TP DAILY [facility]; Protocol Last Admin: 07/28/18 12:02 Dose: 1 applic Docusate Sodium (Colace -) 300 mg PO [facility] Emollient Ointment (Aquaphor -) 1 applic TP DAILY [facility] Last Admin: 07/28/18 12:05 Dose: 1 applic Ferrous Sulfate (Feosol -) 325 mg PO DAILY [facility] Last Admin: 07/28/18 10:07 Dose: 325 mg Furosemide (Lasix -) 20 mg PO DAILY [facility] Last Admin: 07/28/18 10:07 Dose: 20 mg Insulin Aspart (Novolog Vial Sliding Scale -) 1 vial SQ TIDAC [facility]; Protocol Last Admin: 07/28/18 12:18 Dose: 2 units Insulin Detemir (Levemir Vial) 10 units SQ AM [facility] Last Admin: 07/28/18 06:59 Dose: 10 units Levothyroxine Sodium (Synthroid -) 50 mcg PO DAILY@0700 [facility] Last Admin: 07/28/18 06:51 Dose: 50 mcg Losartan Potassium (Cozaar -) 50 mg PO DAILY [facility] Last Admin: 07/28/18 10:06 Dose: 50 mg Miscellaneous (Lidoderm Patch Removal) 1 each MC DAILY@2200 [facility] Pantoprazole Sodium (Protonix -) 40 mg PO DAILY [facility] Last Admin: 07/28/18 10:08 Dose: 40 mg Polyethylene Glycol (Miralax (For Daily Use) -) 17 gm PO BID [facility] Last Admin: 07/28/18 10:08 Dose: Not Given Potassium Phos/Sodium Phos (Phos-Nak Packet -) 1 packet PO DAILY [facility] Last Admin: 07/28/18 10:08 Dose: 1 packet Rivaroxaban (Xarelto -) 20 mg PO DAILY@1800 [facility] Last Admin: 07/27/18 18:13 Dose: 20 mg Senna (Senna -) 1 tab PO HS [facility] Last Admin: 07/27/18 21:23 Dose: Not Given Vital Signs: Last Vital Signs Temp Pulse Resp BP Pulse Ox 97.9 F 63 20 137/68 100 07/28/18 06:00 07/28/18 06:00 07/28/18 06:00 07/28/18 06:00 07/27/18 22:00 Intake & Output 07/25/18 07/26/18 07/27/18 07/28/18 23:59 23:59 23:59 23:59 Intake Total 450 900 930 250 Output Total 400 600 250 Balance 50 300 680 250 Weight 168 lb 3.2 oz 161 lb 11.2 oz 163 lb 3.2 oz 163 lb 3.2 oz Neck: Supple Negative JVD No Bruit Respiratory: Diminished Breath Sounds at the Bases Cardiovascular: S1 S2 Regularly Rate and Rhythm Grade 2-3/6 SM Gastrointestinal: Soft Distended Benign Normal Bowel Sounds Ext: Negative Edema Labs: CBC, BMP 07/28/18 06:40 07/28/18 06:40 Hepatic Panel Total Bilirubin 0.7 mg/dL (0.2-1) 07/26/18 09:00 AST 30 U/L (15-37) 07/26/18 09:00 ALT 46 U/L (13-61) 07/26/18 09:00 Alkaline Phosphatase 140 U/L (45-117) H 07/26/18 09:00 Albumin 2.1 g/dl (3.4-5.0) L 07/26/18 09:00 Assessment/Plan ASSESSMENT: 1. Post respiratory failure/post acute Hypoxic-Hypercapneic Respiratory failure , off of mechanical ventilation 2. Post septic shock/pneumonia, cellulitis and staph bacteremia, resolved 3. Systolic/diastolic LV dysfunction with acute on chronic class II-III NYHA classification LV failure, resolved 4. CAD post PCI/stent, angina pectoris 5. Persistent atrial fibrillation [id number] 6 on A/C with DOAC's/Xarelto 6. MR mild 7. TR mild to moderate 8. 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 AV block post PPM 10. HTN 11. DM 12. Hypercholesterolemia 13. COPD 14. Shock liver resolving 15. CKD, pre-renal azotemia, resolved 16. Anemia PLAN: 1. Continue Coreg and titrate dosage as needed and tolerated, hemodynamics permitting 2. Continue Cozaar with caution and close monitoring of renal function and titrate dosage as needed and tolerated, hemodynamics permitting 3. Continue Xarelto with caution and close monitoring of Hg, transfuse to maintain Hg equal or > 8.0 4. Diuretics/Lasix with close monitoring of renal function 5. Continue Lipitor 6. D/C as per the primary team Vasquez Huynh M.D.
[2018-07-28 15:02] VITALS: BP 144/65; PULSE 60
[2018-07-28] MEDS ORDERED: LIDOCAINE PATCH REMOVAL MC SCH (22:00)
[2018-07-28] MEDS ORDERED: DOCUSATE SODIUM 100 MG CAPSULE (FP) PO SCH (22:00)
--- NOTE | 2018-10-18 13:04 | EKG ---
Test Reason : Blood Pressure : / mmHG Vent. Rate : 062 BPM Atrial Rate : 202 BPM P-R Int : 000 ms QRS Dur : 196 ms QT Int : 528 ms P-R-T Axes : 000 -63 118 degrees QTc Int : 535 ms Ventricular-paced rhythm ABNORMAL ECG Confirmed by MD MCQUEEN GREGORY ([id number]) on 07/11/2018 12:05:58 PM Also confirmed by MD MCQUEEN GREGORY ([id number]), purchasing expeditor ANA KINCAID ([id number]) on 10/18/2018 1:03:59 PM Referred By: SYLWIA FREIRE Confirmed By:HALINA MCQUEEN MD
== END 2018-07-28 14:38 | DRG 871 ==
LOC: JER 10:07 → JERBED 13:30 → JICU 07-11 00:59 → J4W 07-19 19:25 → J8W 07-21 14:02
PROVIDERS: ADMIT Internal Medicine; ATTEND Internal Medicine
PROC: 02HV33Z Insertion of Infusion Device into Superior Vena Cava, Percutaneous Approach (ICD-10-PCS; 2018-07-11)
PROC: B548ZZA Ultrasonography of Superior Vena Cava, Guidance (ICD-10-PCS; 2018-07-11)
PROC: 5A1945Z Respiratory Ventilation, 24-96 Consecutive Hours (ICD-10-PCS; principal; 2018-07-12)
PROC: 0BH17EZ Insertion of Endotracheal Airway into Trachea, Via Natural or Artificial Opening (ICD-10-PCS; 2018-07-12)
PROC: 0DH67UZ Insertion of Feeding Device into Stomach, Via Natural or Artificial Opening (ICD-10-PCS; 2018-07-12)
PROC: 3E0G76Z Introduction of Nutritional Substance into Upper GI, Via Natural or Artificial Opening (ICD-10-PCS; 2018-07-12)
PROC: 30233N1 Transfusion of Nonautologous Red Blood Cells into Peripheral Vein, Percutaneous Approach (ICD-10-PCS; 2018-07-13)
DX: A41.9 Sepsis, unspecified organism (principal); I50.43 Acute on chronic combined systolic (congestive) and diastolic (congestive) heart failure; R65.21 Severe sepsis with septic shock; J96.02 Acute respiratory failure with hypercapnia; J96.01 Acute respiratory failure with hypoxia; J18.9 Pneumonia, unspecified organism; K72.00 Acute and subacute hepatic failure without coma; I13.0 Hypertensive heart and chronic kidney disease with heart failure and stage 1 through stage 4 chronic kidney disease, or unspecified chronic kidney disease; L03.116 Cellulitis of left lower limb; L03.115 Cellulitis of right lower limb; E87.2 Acidosis; J98.11 Atelectasis; N17.9 Acute kidney failure, unspecified; R18.8 Other ascites; K92.0 Hematemesis; N39.0 Urinary tract infection, site not specified; E87.0 Hyperosmolality and hypernatremia; J44.9 Chronic obstructive pulmonary disease, unspecified; I25.10 Atherosclerotic heart disease of native coronary artery without angina pectoris; Z95.0 Presence of cardiac pacemaker; E03.9 Hypothyroidism, unspecified; E11.22 Type 2 diabetes mellitus with diabetic chronic kidney disease; N18.9 Chronic kidney disease, unspecified; I87.2 Venous insufficiency (chronic) (peripheral); F60.9 Personality disorder, unspecified; Z79.4 Long term (current) use of insulin; D53.9 Nutritional anemia, unspecified; Z98.61 Coronary angioplasty status; E87.5 Hyperkalemia; G47.33 Obstructive sleep apnea (adult) (pediatric); R68.0 Hypothermia, not associated with low environmental temperature; E07.81 Sick-euthyroid syndrome; E86.0 Dehydration; B35.1 Tinea unguium; K29.00 Acute gastritis without bleeding; R94.5 Abnormal results of liver function studies; I48.2 Chronic atrial fibrillation; Z66 Do not resuscitate; N40.0 Benign prostatic hyperplasia without lower urinary tract symptoms; I34.0 Nonrheumatic mitral (valve) insufficiency; R13.10 Dysphagia, unspecified; B95.7 Other staphylococcus as the cause of diseases classified elsewhere; R31.9 Hematuria, unspecified; E11.649 Type 2 diabetes mellitus with hypoglycemia without coma; B96.5 Pseudomonas (aeruginosa) (mallei) (pseudomallei) as the cause of diseases classified elsewhere; B96.1 Klebsiella pneumoniae [K. pneumoniae] as the cause of diseases classified elsewhere; B95.62 Methicillin resistant Staphylococcus aureus infection as the cause of diseases classified elsewhere
CPT/HCPCS: 31500; 36415; 36430; 36600; 70450-TC; 71045-TC-FY; 76705-TC; 80048; 80053; 80074; 81003; 82024; 82272; 82533; 82550; 82553; 82803; 82962; 83036; 83605; 83735; 83880; 84100; 84132; 84439; 84443; 84481; 84484; 85025; 85027; 85384; 85610; 85730; 86850; 86900; 86901; 86922; 87040; 87070; 87086; 87186; 87205; 93005; 93010; 93306-TC; 93970-TC; 94002; 94640; 94660; 97116-GP; 97161-GP; 99285-25; G0480; J0131; J1644; J7030; P9038; P9058

== ENCOUNTER 2019-08-24 21:07 | Inpatient (IN) | payer OTHER, MEDICARE ==
--- NOTE | 2019-08-24 21:18 | PDOC ---
History of Present Illness - General Chief Complaint: Blood Sugar Problem Stated Complaint: HYPERGLYCEMIA Time Seen by Provider: 08/24/19 21:18 History Source: Patient Exam Limitations: No Limitations - History of Present Illness Initial Comments: 84-year-old male with past medical history of hypertension, hyperlipidemia, CAD (s/p stent x7), COPD on home O2, congestive heart failure, atrial fibrillation on Xarelto, diabetes dependent on insulin, chronic venous insufficiency, BPH, anemia, hypothyroidism, alzheimers (normal baseline a&Ox3), schizophrenia, dysphagia presented to the emergency department from the [facility] for hypoglycemia. EMS at bedside reported they were told patient began becoming hypoglycemic in the afternoon, the lowest reading was about 41, for which the intermediate gave glucose. The intermediate reported to them that about an hour ago a patient starting shaking, which made them concerned for sepsis, prompting them to call EMS. EMS reported when they arrive to the scene the patients glucose was 149 after receiving the oral glucose. Patients normal mental baseline is to be alert and oriented to person place time and situation. Patient is wheelchair and bed bound at baseline. EMS reported they did not state how long patient has been off his mental baseline, the only thing with intermediate reported was the low serum glucose and shaking episode, and concern for sepsis. ROS: unable to perform 2/2 pt's confusion. PE Constitutional: Well-nourished, Well-developed, appearing stated age. feels warm. HEENT: head is normocephalic, atraumatic. EOMI. PERRLA. Neck: supple. Full ROM. Cardiovascular: irregularly irregular heart rhythm. no murmurs. Respiratory: bibasilar crackles. no stridor. no labored breathing. Gastrointestinal: soft, nontender. normal bowel sounds. no rebound, guarding, masses. Sacral: stage 1 pressure ulcer, only erythema noted. Extremities: peripheral pulses intact. no lower extremity edema. thin lower extremities. abrasions to right baker without surrounding erythema or sign of infection. Neurological: CN 2-12 grossly intact. moves all four extremities. Psych: awake, alert, oriented to person. follows commands. reported it is 1995 and [place] the opera. Past History - Past Medical History Allergies/Adverse Reactions: Allergies Allergy/AdvReac Type Severity Reaction Status Date / Time No Known Drug Allergies Allergy Verified 08/24/19 21:17 Home Medications: Ambulatory Orders Albuterol 2.5/Ipratropium 0.5 [Duoneb -] 1 neb IH QID 07/10/18 Atorvastatin Ca [Lipitor] 40 mg PO HS 07/10/18 Ferrous Sulfate [Feosol] 325 mg PO DAILY 07/10/18 Insulin Detemir [Levemir Flextouch] 10 unit SQ HS 07/10/18 Losartan Potassium [Cozaar -] 50 mg PO DAILY 07/10/18 Mag Hydrox/Al Hydrox/Simeth [Mylanta Oral Suspension -] 30 ml PO Q6H PRN Polyethylene Glycol 3350 [Miralax 119 gm Btl -] 17 gm PO BID 07/10/18 Rivaroxaban [Xarelto -] 20 mg PO DAILY 07/10/18 Sennosides [Senna] 17.2 mg PO HS 07/10/18 Atorvastatin Ca [Lipitor] 10 mg PO HS tablet 07/28/18 Carvedilol [Coreg -] 3.125 mg PO BID tablet 07/28/18 Collagenase Clostridium Hist. [Santyl -] 1 applic TP DAILY tube 07/28/18 Docusate Sodium [Colace -] 300 mg PO HS capsule 07/28/18 Furosemide [Lasix -] 20 mg PO DAILY tablet 07/28/18 Insulin (Levemir) [Levemir Vial] 10 units SQ AM units 07/28/18 Levothyroxine [Synthroid -] 50 mcg PO DAILY@0700 tablet 07/28/18 Lidocaine Patch Removal [Lidoderm Patch Removal] 1 each MC DAILY@2200 each Losartan Potassium [Cozaar -] 50 mg PO DAILY tablet 07/28/18 Mineral Oil/Pet Hy-Phl [Aquaphor -] 1 applic TP DAILY jar 07/28/18 Sennosides [Senna -] 1 tab PO HS tablet 07/28/18 CVA: (? TIA) - Surgical History Abdominal Surgery: No Appendectomy: No Cardiac Surgery: Yes (7x stents, pacemaker) Cholecystectomy: No Lung Surgery: No Neurologic Surgery: No Orthopedic Surgery: Yes (Right knee sx) - Immunization History Td Vaccination: No TDAP Vaccination: No Immunization Up to Date: Yes - Psycho Social/Smoking Cessation Hx Smoking Status: No Smoking History: Never smoked Years of Tobacco Use: 0 Have you smoked in the past 12 months: No Number of Cigarettes Smoked Daily: 0 Cigars Per Day: 0 Hx Alcohol Use: No Drug/Substance Use Hx: No Substance Use Type: None Hx Substance Use Treatment: No Review of Systems - Review of Systems Able to Perform ROS?: No (Pt is confused) Vital Signs - Vital Signs #1 Time: 03:33 Blood Pressure: 82/56 BP Location: Right Arm Blood Pressure Position: Supine Pulse Rate: 60 Respiratory Rate: 16 O2 Sat by Pulse Oximetry (%): 100 Oxygen Delivery Method: Nasal Cannula Oxygen Flow Rate: 3 ED Treatment Course - LABORATORY CBC & Chemistry Diagram: 08/24/19 22:40 08/25/19 01:45 Medical Decision Making - Medical Decision Making 84 year old male with above PMH sent to ED from [facility] for hypoglycemia, requested "sepsis workup". Initial Vital Signs Temp Pulse Resp BP Pulse Ox 98.0 F 78 16 119/83 93 L 08/24/19 21:17 08/24/19 21:17 08/24/19 21:17 08/24/19 21:17 08/24/19 21:17 Afebrile on oral temperature. No tachycardia. No tachypnea. No hypotension. Mild hypoxia on room air. -Pt is satting 97% on 2L O2. Vital Signs Temperature 102.2 F H 08/24/19 21:29 Pulse Rate 63 08/24/19 21:23 Respiratory Rate 16 08/24/19 21:23 Blood Pressure 143/98 08/24/19 21:23 O2 Sat by Pulse Oximetry (%) 97 08/24/19 21:23 Febrile by rectal temperature. Labs ordered: sepsis order set, BNP Imaging ordered: CXR, CT head Medications ordered: tylenol IV -IV fluids held for now, pt has Hx CHF, bibasilar crackles, will wait for CXR EKG performed at 0132: rate 67, regular paced rhythm, normla axis, SD 230, nonspecific ST changes. 08/24/19 23:40 Laboratory Last Values WBC 6.6 K/mm3 (4.0-10.0) 08/24/19 22:40 RBC 2.95 M/mm3 (4.00-5.60) L 08/24/19 22:40 Hgb 9.7 GM/dL (11.7-16.9) L 08/24/19 22:40 Hct 30.0 % (35.4-49) L D 08/24/19 22:40 MCV 101.5 fl (80-96) H 08/24/19 22:40 MCH 32.7 pg (25.7-33.7) 08/24/19 22:40 MCHC 32.2 g/dl (32.0-35.9) 08/24/19 22:40 RDW 17.3 % (11.9-15.9) H 08/24/19 22:40 Plt Count 222 K/MM3 (134-434) D 08/24/19 22:40 MPV 10.2 fl (7.5-11.1) D 08/24/19 22:40 Absolute Neuts (auto) 5.5 K/mm3 (1.5-8.0) 08/24/19 22:40 Neutrophils % 83.8 % (42.8-82.8) H D 08/24/19 22:40 Lymphocytes % 4.9 % (8-40) L D 08/24/19 22:40 Monocytes % 10.2 % (3.8-10.2) 08/24/19 22:40 Eosinophils % 0.4 % (0-4.5) D 08/24/19 22:40 Basophils % 0.7 % (0-2.0) 08/24/19 22:40 Nucleated RBC % 0 % (0-0) 08/24/19 22:40 VBG pH 7.41 (7.31-7.41) 08/24/19 22:40 POC VBG pCO2 31.1 mmHg (38-52) L 08/24/19 22:40 POC VBG pO2 130 mmHg (28-48) H 08/24/19 22:40 VBG HCO3 19.5 mmol/L (23-29) L 08/24/19 22:40 VBG O2 Sat (Gabriela) 99.0 % (70-80) H 08/24/19 22:40 VBG Base Excess -3.8 meq/l (-2-2) L 08/24/19 22:40 Sodium 135 mmol/L (136-145) L 08/24/19 22:40 Chloride 101 mmol/L (98-107) 08/24/19 22:40 Carbon Dioxide 23 mmol/L (21-32) 08/24/19 22:40 Anion Gap 11 MMOL/L (8-16) 08/24/19 22:40 BUN 49.2 mg/dL (7-18) H 08/24/19 22:40 Creatinine 1.4 mg/dL (0.55-1.3) H 08/24/19 22:40 Est GFR (CKD-EPI)AfAm 53.09 08/24/19 22:40 Est GFR (CKD-EPI)NonAf 45.81 08/24/19 22:40 Random Glucose 142 mg/dL (74-106) H 08/24/19 22:40 Calcium 8.4 mg/dL (8.5-10.1) L 08/24/19 22:40 Total Bilirubin 0.9 mg/dL (0.2-1) 08/24/19 22:40 AST 35 U/L (15-37) 08/24/19 22:40 ALT 24 U/L (13-61) 08/24/19 22:40 Alkaline Phosphatase 135 U/L (45-117) H 08/24/19 22:40 B-Natriuretic Peptide 23387.1 pg/ml (5-450) H 08/24/19 22:40 Total Protein 6.8 g/dl (6.4-8.2) 08/24/19 22:40 Albumin 3.1 g/dl (3.4-5.0) L 08/24/19 22:40 Influenza A (Rapid) Negative (Negative) 08/24/19 21:46 Influenza B (Rapid) Negative (Negative) 08/24/19 21:46 No leukocytosis. Macrocytic anemia, better than baseline. No acidosis. No CO2 retention. JENNYFER. Influenza negative. Elevated BNP. CXR shows no infiltrate, poor inspiration, colonic air seen at splenic flexure. -Pending official report Imaging ordered: CT abdomen/pelvis without contrast (JENNYFER currently) Medications ordered: normal saline bolus 500 cc once -Will hydrate slowly for JENNYFER to avoid fluid overload 08/24/19 23:59 Potassium 6.1 Lactate 4.5 Medications ordered: Lasix 20 mg IV once, Insulin Regular 10 Units once, 1 amp D50, Duoneb, calcium gluconate, normal saline bolus 500 cc once 08/25/19 01:03 CT head report: Referring Physician: LASHONDA STEPHENSON Comments: Malik Holliday MD wrote on Aug 25, 2019 at 12:50 AM: Referring Physician: LASHONDA STEPHENSON Patient Name: DAIN THORNTON THIS IS A PRELIMINARY REPORT FROM [facility]MMUNOLOG[facility] DATE OF SERVICE: 2019-08-24 23:48:59 IMAGES: 240 EXAM: CT HEAD WITHOUT CONTRAST HISTORY: 84-year-old male, altered mental status COMPARISON: No available comparison exams. TECHNIQUE: Axial non-contrast images of the head obtained from the skull base to the vertex. Radiation Dose Reduction: This CT exam was performed using one or more of the following dose reduction techniques: automated exposure control, adjustment of the mA and/or kV according to patient size, use of iterative reconstruction technique. Radiation Dose: Based on a 16 cm phantom, the estimated radiation dose CTDIvol mGy for each series in this exam is 23.9. The estimated cumulative dose (DLP mGy-cm) is 560 four-point. FINDINGS: Parenchyma: No acute intracranial hemorrhage or mass effect. No hypodensity. Extra-axial collection: No extra-axial fluid collection or hemorrhage. Ventricles and cisterns: Normal and symmetric in size and shape. No SAH. Paranasal sinuses: Visualized portions are unremarkable. Mastoid air cells: Unremarkable. Orbits: Visualized portions are unremarkable. Calvarium: No acute fracture. IMPRESSION: No evidence of acute intracranial abnormality. One or more of the following dose reduction techniques were used: automated exposure control, adjustment of the mA and/or kV according to patient size, use of iterative reconstructive technique. THIS DOCUMENT HAS BEEN ELECTRONICALLY SIGNED Malik Holliday MD 08/25/2019 00:49 EARLE Jennings Please call Imaging Vessel Welder [phone]) with questions. Malik Holliday MD Clinicians - Please contact Imaging Vessel Welder with further questions at [phone] Patients - Please contact your Ordering Provider with questions. 08/25/19 02:14 CT abdomen/pelvis report: Referring Physician: LASHONDA STEPHENSON Comments: Malik Holliday MD wrote on Aug 25, 2019 at 01:55 AM: Referring Physician: LASHONDA STEPHENSON Patient Name: DAIN THORNTON THIS IS A PRELIMINARY REPORT FROM [facility]MM[facility] DATE OF SERVICE: 2019-08-25 00:04:00 IMAGES: [id number] EXAM: CT ABDOMEN AND PELVIS WITHOUT CONTRAST CLINICAL HISTORY: 84-year-old male, altered mental status, febrile, colonic air COMPARISON: No available comparison exam PROCEDURE COMMENTS: CT of the abdomen and pelvis was performed without the administration of IV contrast. Enteric contrast was not administered prior to the examination. Radiation Dose Reduction: This CT exam was performed using one or more of the following dose reduction techniques: automated exposure control, adjustment of the mA and/or kV according to patient size, use of iterative reconstruction technique. FINDINGS: Limited evaluation of solid organs and vasculature without IV contrast. Peribronchial densities in both lower lobes most compatible with pneumonia. Small right pleural effusion. Coronary artery calcifications. Cardiomegaly. Aortic valvular calcifications and mitral annular calcifications. The spleen, bilateral adrenal glands, are unremarkable. 1.6 cm cystic lesion with rim calcification within the inferior pole of the right kidney. No hydronephrosis or urolithiasis. Nodular contour of the liver compatible with cirrhosis. Limited evaluation for hepatocellular carcinoma without liver protocol CT. There is mild wall thickening of the gallbladder which is nonspecific. The pancreas is moderately atrophic. The stomach is grossly unremarkable. No evidence of obstruction. There is large quantity of colonic gas as well as a large stool burden most compatible with constipation. There is thickening of the low rectum; this may be related to underdistention although neoplasm cannot be excluded. Recommend proctoscopy. There is asymmetric wall thickening of the urinary bladder with question of a nodule anteriorly which measures approximately 8 mm. Alternatively this may represent an indentation from an enlarged prostate There is evidence of prior TURP. No lymphadenopathy. Small fat-containing umbilical hernia without evidence of strangulation. There is gas within the rectus muscles of the right lower quadrant possibly related to injection site. The bones are without acute abnormality. Moderate degenerative changes in the lumbar spine. IMPRESSION: Limited evaluation of solid organs and vasculature without IV contrast. There is large quantity of colonic gas as well as a large stool burden most compatible with constipation. There is thickening of the low rectum; this may be related to underdistention although neoplasm cannot be excluded. Recommend proctoscopy. Peribronchial densities in both lower lobes most compatible with pneumonia. Small right pleural effusion. There is asymmetric wall thickening of the urinary bladder with question of a nodule anteriorly which measures approximately 8 mm. Alternatively this may represent an indentation from an enlarged prostate There is evidence of prior TURP. Hepatic cirrhosis. One or more of the following dose reduction techniques were used: automated exposure control, adjustment of the mA and/or kV according to patient size, use of iterative reconstructive technique. THIS DOCUMENT HAS BEEN ELECTRONICALLY SIGNED Malik Holliday MD 08/25/2019 01:54 EARLE Jennings Please call Imaging Vessel Welder [phone] with questions. Malik Holliday MD Clinicians - Please contact Imaging Vessel Welder with further questions at [phone] ([phone] Patients - Please contact your Ordering Provider with questions. Urine Test Results Urine Color Yellow 08/25/19 01:45 Urine Appearance Clear 08/25/19 01:45 Urine pH 6.5 (5.0-8.0) D 08/25/19 01:45 Ur Specific [place] 1.016 (1.010-1.035) 08/25/19 01:45 Urine Protein Negative (NEGATIVE) 08/25/19 01:45 Urine Glucose (UA) Negative (NEGATIVE) 08/25/19 01:45 Urine Ketones Negative (NEGATIVE) 08/25/19 01:45 Urine Blood Negative (NEGATIVE) 08/25/19 01:45 Urine Nitrite Negative (NEGATIVE) 08/25/19 01:45 Urine Bilirubin Negative (NEGATIVE) 08/25/19 01:45 Ur Leukocyte Esterase Negative (NEGATIVE) 08/25/19 01:45 Negative for UTI. Medications ordered: Vancomycin, Zosyn Pt to be admitted for Pneumonia, Sepsis, JENNYFER. 08/25/19 02:53 CMP Sodium 136 mmol/L (136-145) 08/25/19 01:45 Potassium 5.9 mmol/L (3.5-5.1) H 08/25/19 01:45 Chloride 104 mmol/L (98-107) 08/25/19 01:45 Carbon Dioxide 22 mmol/L (21-32) 08/25/19 01:45 Anion Gap 10 MMOL/L (8-16) 08/25/19 01:45 BUN 51.8 mg/dL (7-18) H 08/25/19 01:45 Creatinine 1.4 mg/dL (0.55-1.3) H 08/25/19 01:45 Est GFR (CKD-EPI)AfAm 53.09 08/25/19 01:45 Est GFR (CKD-EPI)NonAf 45.81 08/25/19 01:45 POC Glucometer 242 UNITS (80-120) 08/25/19 01:21 Random Glucose 214 mg/dL (74-106) H 08/25/19 01:45 Lactic Acid 2.6 mmol/L (0.4-2.0) H* 08/25/19 01:45 Calcium 8.4 mg/dL (8.5-10.1) L 08/25/19 01:45 Troponin I 0.86 ng/ml (0.00-0.05) H* 08/25/19 01:45 Hyperkalemia improving. JENNYFER stable. Troponin elevated. -Add on for first sample ordered -Lab called Lactic acidosis improving. 08/25/19 03:34 Vital Signs Pulse Rate 60 08/25/19 03:35 Respiratory Rate 16 08/25/19 03:35 Blood Pressure 82/56 L 08/25/19 03:35 O2 Sat by Pulse Oximetry (%) 100 08/25/19 03:35 Pt now hypotensive. Pt only received 500 cc bolus, not adequately fluid hydrated at this point. Will order additional normal saline bolus 500 cc once. Will continue to slowly hydrate with CHF. Discharge - Discharge Information Problems reviewed: Yes Clinical Impression/Diagnosis: Hyperkalemia, JENNYFER (acute kidney injury), Lactic acidosis, Pneumonia Condition: Stable - Admission Yes - Follow up/Referral Referrals: Flash Candelaria MD [Primary Care Provider] - - Patient Discharge Instructions - Post Discharge Activity
[2019-08-24] MEDS ORDERED: SODIUM CHLORIDE 1,878 ML IV ONE (21:27)
--- NOTE | 2019-08-24 21:34 | PDOC ---
Attending Attestation - Resident Resident Name: Kaila Jordan - ED Attending Attestation I have performed the following: I have examined & evaluated the patient, The case was reviewed & discussed with the resident, I agree w/resident's findings & plan - HPI HPI: 08/25/19 00:20 Pt comes with altered mental status and difficulty breathing. He has a fever in the ER Pt is talking gibberish and he is oriented to person only, not place or time. Pt complains he needs oxygen> speaking in full sentences (nonsensical mostly) and breathing 96% on 2L NC - Physicial Exam PE: 08/25/19 00:23 febrile to touch decreased breath sounds bilat lungs and rales at the bases. Abd soft NT ND; gassy abdomen; pt has no pain No flank pain Thin extremities bilaterally; old healed scars on his shins right side>> left No rash and no erythema of legs. No skin breakdonw at the septum. - Medical Decision Making 08/24/19 23:29 CHF exacerbation and enlarged loops of bowel 08/25/19 00:[address] abd/pelvis to be read; pt seems to have large stool load; no obstruction in the intestines. Pt has stranding around both kidneys and he will have UA sent as well as urine culture; he has thickened bladder wall on the CT scan We will treat with zosyn and vancomycin in the mean time. 08/25/19 00:40 08/25/19 00:44 CT head: Patient Name: DAIN THORNTON THIS IS A PRELIMINARY REPORT FROM [facility] DATE OF SERVICE: 2019-08-24 23:48:59 IMAGES: 240 EXAM: CT HEAD WITHOUT CONTRAST HISTORY: 84-year-old male, altered mental status COMPARISON: No available comparison exams. TECHNIQUE: Axial non-contrast images of the head obtained from the skull base to the vertex. Radiation Dose Reduction: This CT exam was performed using one or more of the following dose reduction techniques: automated exposure control, adjustment of the mA and/or kV according to patient size, use of iterative reconstruction technique. Radiation Dose: Based on a 16 cm phantom, the estimated radiation dose CTDIvol mGy for each series in this exam is 23.9. The estimated cumulative dose (DLP mGy-cm) is 560 four-point. FINDINGS: Parenchyma: No acute intracranial hemorrhage or mass effect. No hypodensity. Extra-axial collection: No extra-axial fluid collection or hemorrhage. Ventricles and cisterns: Normal and symmetric in size and shape. No SAH. Paranasal sinuses: Visualized portions are unremarkable. Mastoid air cells: Unremarkable. Orbits: Visualized portions are unremarkable. Calvarium: No acute fracture. IMPRESSION: No evidence of acute intracranial abnormality Ct abd/pelvis: Patient Name: DAIN THORNTON THIS IS A PRELIMINARY REPORT FROM [facility] DATE OF SERVICE: 2019-08-25 00:04:00 IMAGES: 711 EXAM: CT ABDOMEN AND PELVIS WITHOUT CONTRAST CLINICAL HISTORY: 84-year-old male, altered mental status, febrile, colonic air COMPARISON: No available comparison exam PROCEDURE COMMENTS: CT of the abdomen and pelvis was performed without the administration of IV contrast. Enteric contrast was not administered prior to the examination. Radiation Dose Reduction: This CT exam was performed using one or more of the following dose reduction techniques: automated exposure control, adjustment of the mA and/or kV according to patient size, use of iterative reconstruction technique. Radiation Dose: Based on a 32 cm phantom, the estimated radiation dose CTDIvol mGy for each CONFIDENTIALITY NOTICE: This information is intended only for the use of the recipient(s) named above. If you are not the intended recipient, or a person responsible for delivering it to the intended recipient, you are hereby notified that any disclosure, copying, distribution or use of any of the information contained in or attached to this transmission is STRICTLY PROHIBITED. If you have received this transmission in error, please immediately notify Imaging Fuel Technician and destroy the original transmission and its attachments without saving them in any manner [address] [place] [address] [place] [address] Phone: [phone] Fax: Email: [email or web address] Patient Information: : 1935 Order Type: Preliminary Name: HILLARY GAUTAM Sex: M Study Description: CT ABDOMEN AND PELVIS Modality: CT Location: [facility] Referring Physician: LASHONDA STEPHENSON series in this exam is 13.7. The estimated cumulative dose (DLP mGy-cm) is 746.2. FINDINGS: Limited evaluation of solid organs and vasculature without IV contrast. Peribronchial densities in both lower lobes most compatible with pneumonia. Small right pleural effusion. Coronary artery calcifications. Cardiomegaly. Aortic valvular calcifications and mitral annular calcifications. The spleen, bilateral adrenal glands, are unremarkable. 1.6 cm cystic lesion with rim calcification within the inferior pole of the right kidney. No hydronephrosis or urolithiasis. Nodular contour of the liver compatible with cirrhosis. Limited evaluation for hepatocellular carcinoma without liver protocol CT. There is mild wall thickening of the gallbladder which is nonspecific. The pancreas is moderately atrophic. The stomach is grossly unremarkable. No evidence of obstruction. There is large quantity of colonic gas as well as a large stool burden most compatible with constipation. There is thickening of the low rectum; this may be related to underdistention although neoplasm cannot be excluded. Recommend proctoscopy. There is asymmetric wall thickening of the urinary bladder with question of a nodule anteriorly which measures approximately 8 mm. Alternatively this may represent an indentation from an enlarged prostate There is evidence of prior TURP. No lymphadenopathy. Small fat-containing umbilical hernia without evidence of strangulation. There is gas within the rectus muscles of the right lower quadrant possibly related to injection site. The bones are without acute abnormality. Moderate degenerative changes in the lumbar spine. IMPRESSION: Limited evaluation of solid organs and vasculature without IV contrast. 08/25/19 01:06 pt is stable. Sleeping comfortably'; he received lasix and duonebs for elevated K+ Pt's BP went down; he is dry despoite 3rd spacing for his fluids. He will be gently hydrated in the ER. He is awaiting admission. 08/25/19 02:02 08/25/19 04:58 Pt finally accepted for admission after 9 hrs in the ER. 08/25/19 05:58
[2019-08-24] MEDS ORDERED: ACETAMINOPHEN 1000 MG/100 ML VIAL (NON FORMULARY) IVPB ONE (21:35)
[2019-08-24 22:50] LABS: BASO % 0.7 % (0-2.0); EOS % 0.4 % (0-4.5); HEMOGLOBIN 9.7 GM/dL (11.7-16.9); LYMPH % 4.9 % (8-40); MCH 32.7 pg (25.7-33.7); MCHC 32.2 g/dl (32.0-35.9); MEAN CELL VOLUME 101.5 fl (80-96); MEAN PLT VOLUME 10.2 fl (7.5-11.1); MONO % 10.2 % (3.8-10.2); NEUT % 83.8 % (42.8-82.8); PLATELET COUNT 222 K/MM3 (134-434); RBC 2.95 M/mm3 (4.00-5.60); RDW 17.3 % (11.9-15.9); WHITE BLOOD COUNT 6.6 K/mm3 (4.0-10.0)
[2019-08-24 22:53] LABS: VENOUS PC02 31.1 mmHg (38-52); VENOUS PH 7.41 (7.31-7.41)
[2019-08-24 23:25] LABS: ALBUMIN 3.1 g/dl (3.4-5.0); BILIRUBIN,TOTAL 0.9 mg/dL (0.2-1); BLOOD UREA NITROGEN 49.2 mg/dL (7-18); CALCIUM 8.4 mg/dL (8.5-10.1); CREATININE 1.4 mg/dL (0.55-1.3); TOT PROT 6.8 g/dl (6.4-8.2)
[2019-08-24] MEDS ORDERED: SODIUM CHLORIDE 500 ML IV STA (23:39)
[2019-08-24 23:40] LABS: N-TERMINAL BNP 10305.1 pg/ml (5-450)
[2019-08-24 23:49] LABS: POTASSIUM 6.1 mmol/L (3.5-5.1)
[2019-08-24] MEDS ORDERED: ALBUTEROL SO4 2.5/IPRATROPIUM 0.5 INH SOL 3 ML VIAL.NEB. NEB ONE (23:50)
[2019-08-24] MEDS ORDERED: FUROSEMIDE 40 MG/4 ML INJECTABLE VIAL IVPUSH ONE (23:50)
[2019-08-24] MEDS ORDERED: ACETAMINOPHEN INJECTION 100 ML IVPB ONE (23:59)
[2019-08-25] MEDS ORDERED: INSULIN REGULAR HUMAN 100 UNITS/ML *VIAL IVPUSH ONE
[2019-08-25] MEDS ORDERED: FUROSEMIDE 40 MG/4 ML INJECTABLE VIAL ONE
[2019-08-25] MEDS ORDERED: DEXTROSE 50%-WATER - 25 GM/50 ML VIAL IVPUSH ONE
[2019-08-25] MEDS ORDERED: CALCIUM GLUCONATE 10% - 1,000 MG/10 ML VIAL IVPUSH ONE (00:01)
[2019-08-25] MEDS ORDERED: CALCIUM GLUCONATE 10% - 1,000 MG/10 ML VIAL ONE (00:31)
[2019-08-25] MEDS ORDERED: DEXTROSE 50%-WATER 25 GM/50 ML DISP.SYRIN ONE (00:32)
[2019-08-25] MEDS ORDERED: INSULIN REGULAR HUMAN 100 UNITS/ML *VIAL ONE (00:36)
[2019-08-25 00:44] LABS: INR 2.69 (0.83-1.09); PROTHROMBIN TIME (PATIENT) 32.1 SEC (9.7-13.0)
[2019-08-25 00:46] LABS: ACTIVATED PTT 40.9 SECONDS (25.2-36.5)
[2019-08-25 02:04] LABS: PH,URINE 6.5 (5.0-8.0); URINE APPEARANCE CLEAR; URINE BILIRUBIN NEGATIVE (NEGATIVE); URINE COLOR YELLOW; URINE GLUCOSE (UA) NEGATIVE (NEGATIVE); URINE KETONE NEGATIVE (NEGATIVE); URINE LEUK ESTERASE NEGATIVE (NEGATIVE); URINE NITRITE NEGATIVE (NEGATIVE); URINE PROTEIN NEGATIVE (NEGATIVE)
[2019-08-25] MEDS ORDERED: ALBUTEROL SO4 2.5/IPRATROPIUM 0.5 INH SOL 3 ML VIAL.NEB. NEB ONE (02:05)
[2019-08-25] MEDS ORDERED: VANCOMYCIN 1,000 MG in DEXTROSE 5%-WATER - 250 ML IVPB ONE (02:08)
[2019-08-25] MEDS ORDERED: PIPERACILLIN/TAZOB 4.5 GM 4.5 GM in DEXTROSE 5%-WATER 100 ML IVPB ONE (02:08)
[2019-08-25] MEDS ORDERED: VANCOMYCIN 1 GRAM (PRE-DOCKED) 1,000 MG/250 ML BAG IVPB ONE (02:13)
[2019-08-25] MEDS ORDERED: PIPERACILLIN/TAZOB 4.5 GM 4.5 GM/100 ML BAG IVPB ONE (02:13)
[2019-08-25 02:35] LABS: BLOOD UREA NITROGEN 51.8 mg/dL (7-18); CALCIUM 8.4 mg/dL (8.5-10.1); CREATININE 1.4 mg/dL (0.55-1.3); POTASSIUM 5.9 mmol/L (3.5-5.1)
--- NOTE | 2019-08-25 02:59 | PN ---
Teaching Attending Note Name of Resident: Hossein Mchugh ATTENDING PHYSICIAN STATEMENT I saw and evaluated the patient. I reviewed the resident's note and discussed the case with the resident. I agree with the resident's findings and plan as documented. SUBJECTIVE: Patient is an 84 year old man with a PMH of Hypertension, Hyperlipidemia, CAD (s /p stent x7), COPD (on home O2), Congestive heart failure, Atrial fibrillation on Xarelto, Insulin-treated DM, Chronic venous insufficiency, BPH, Anemia, Hypothyroidism, Alzheimers (normal baseline a&Ox3), Schizophrenia and Dysphagia presenting from the [facility] for hypoglycemia. EMS at bedside reported they were told patient began becoming hypoglycemic in the afternoon, the lowest reading was about 41, for which the mcc gave glucose. The mcc reported to them that about an hour ago patient started shaking, which made them concerned for sepsis, prompting them to call EMS. EMS reported when they arrive to the scene the patients glucose was 149 after receiving the oral glucose. Patients normal mental baseline is to be alert and oriented to person place time and situation. Patient is wheelchair and bed bound at baseline. EMS reported they did not state how long patient has been off his mental baseline. No history of alcohol, tobacco or illicit drug use. No recent travel or sick contacts. OBJECTIVE: Alert Vital Signs Period Temp Pulse Resp BP Sys/Kuo Pulse Ox Last 24 Hr 98.0 F-102.2 F 63-78 16-22 87-143/60-98 93-100 HEENT: No Jaundice, eye redness or discharge, PERRLA, EOMI. Normocephalic, atraumatic. External ears are normal and hearing is grossly intact. No nasal discharge. Neck: Supple, nontender. No palpable adenopathy or thyromegaly. No JVD Chest: Good effort. Clear to auscultation and percussion. Heart: Regular. No S3, rub or murmur Abdomen: Not distended, soft, nontender and no HSM. No rebound or guarding. Normal bowel sounds. Ext: Peripheral pulses intact. Atrophic lower extremities. No leg edema. Arroyo in place. Skin: Warm and dry. No petechiae, rash or ecchymosis. Stage 1 sacral decubitus ulcer. Neuro: Alert. Oriented to person. CN 2-12 grossly intact. Sensation grossly intact in all four extremities and DTR are symmetric. Psych: Appropriate mood and affect. Good insight. Current Medications Generic Name Dose Route Start Last Admin Trade Name Freq PRN Reason Stop Dose Admin Vancomycin HCl 1,000 mg/ 250 mls @ 166.667 mls/hr 08/25/19 02:08 Dextrose IVPB 08/25/19 03:37 ONCE ONE Protocol Home Medications Medication Instructions Recorded Albuterol 2.5/Ipratropium 0.5 1 neb IH QID 07/10/18 [Duoneb -] Atorvastatin Ca [Lipitor] 40 mg PO HS 07/10/18 Ferrous Sulfate [Feosol] 325 mg PO DAILY 07/10/18 Insulin Detemir [Levemir Flextouch] 10 unit SQ HS 07/10/18 Losartan Potassium [Cozaar -] 50 mg PO DAILY 07/10/18 Mag Hydrox/Al Hydrox/Simeth 30 ml PO Q6H PRN 07/10/18 [Mylanta Oral Suspension -] Polyethylene Glycol 3350 [Miralax 17 gm PO BID 07/10/18 119 gm Btl -] Rivaroxaban [Xarelto -] 20 mg PO DAILY 07/10/18 Sennosides [Senna] 17.2 mg PO HS 07/10/18 Atorvastatin Ca [Lipitor] 10 mg PO HS tablet 07/28/18 Carvedilol [Coreg -] 3.125 mg PO BID tablet 07/28/18 Collagenase Clostridium Hist. 1 applic TP DAILY tube 07/28/18 [Santyl -] Docusate Sodium [Colace -] 300 mg PO HS capsule 07/28/18 Furosemide [Lasix -] 20 mg PO DAILY tablet 07/28/18 Insulin (Levemir) [Levemir Vial] 10 units SQ AM units 07/28/18 Levothyroxine [Synthroid -] 50 mcg PO DAILY@0700 tablet 07/28/18 Lidocaine Patch Removal [Lidoderm 1 each MC DAILY@2200 each 07/28/18 Patch Removal] Losartan Potassium [Cozaar -] 50 mg PO DAILY tablet 07/28/18 Mineral Oil/Pet Hy-Phl [Aquaphor -] 1 applic TP DAILY jar 07/28/18 Sennosides [Senna -] 1 tab PO HS tablet 07/28/18 Abnormal Lab Results 08/24/19 08/24/19 08/24/19 21:27 22:40 22:40 RBC 2.95 L Hgb 9.7 L Hct 30.0 L D MCV 101.5 H RDW 17.3 H Neutrophils % 83.8 H D Lymphocytes % 4.9 L D PT with INR 32.10 H INR 2.69 H PTT (Actin FS) 40.9 H POC VBG pCO2 POC VBG pO2 VBG HCO3 VBG O2 Sat (Gabriela) VBG Base Excess Sodium 135 L Potassium 6.1 H* BUN 49.2 H Creatinine 1.4 H Random Glucose 142 H Lactic Acid Calcium 8.4 L Alkaline Phosphatase 135 H Troponin I B-Natriuretic Peptide Albumin 3.1 L 08/24/19 08/24/19 08/24/19 22:40 22:40 22:40 RBC Hgb Hct MCV RDW Neutrophils % Lymphocytes % PT with INR INR PTT (Actin FS) POC VBG pCO2 31.1 L POC VBG pO2 130 H VBG HCO3 19.5 L VBG O2 Sat (Gabriela) 99.0 H VBG Base Excess -3.8 L Sodium Potassium BUN Creatinine Random Glucose Lactic Acid 4.5 H* Calcium Alkaline Phosphatase Troponin I B-Natriuretic Peptide 23253.1 H Albumin 08/25/19 08/25/19 08/25/19 01:45 01:45 01:45 RBC Hgb Hct MCV RDW Neutrophils % Lymphocytes % PT with INR INR PTT (Actin FS) POC VBG pCO2 POC VBG pO2 VBG HCO3 VBG O2 Sat (Gabriela) VBG Base Excess Sodium Potassium 5.9 H BUN 51.8 H Creatinine 1.4 H Random Glucose 214 H Lactic Acid 2.6 H* Calcium 8.4 L Alkaline Phosphatase Troponin I 0.86 H* B-Natriuretic Peptide Albumin ASSESSMENT AND PLAN: 1. Sepsis due to Pneumonia - Flu swab is negative. No acute abnormality on head CT. CXR shows cardiomegaly, bilateral hemidiaphragm elavation, pacemaker in place, hilar prominence and dilated bowel loops. CT abdomen/pelvis is reported as showing bibasilar consolidation. Being treated with IV Vancomycin and Zosyn as well as IV NS according to sepsis protocol and trend lactic acid. Will consult ID and Pulmonary. Also CT abdomen/pelvis without contrast showed "Nodular contour of the liver compatible with cirrhosis. There is large quantity of colonic gas as well as a large stool burden most compatible with constipation. There is thickening of the low rectum; this may be related to underdistention although neoplasm cannot be excluded. Recommend proctoscopy. There is asymmetric wall thickening of the urinary bladder with question of a nodule anteriorly which measures approximately 8 mm. Alternatively this may represent an indentation from an enlarged prostate There is evidence of prior TURP." EKG shows atrial-sensed ventricular paced rhythm with prolonged QTc and no significant ST-T wave changes. Elevated troponin is likely due to demand ischemia. Will trend troponin, get ECHO, monitor on telemetry and conslt cardiology. Will continue comprehensive care for all of patients comorbid conditions. 2. Hypoalbuminemia - Possibly due to combined effects of malnutrition and inflammation associated with comorbid chronic conditions. 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 3. DM For now, we will hold the home diabetes drugs and implement sliding scale insulin regimen. Provide comprehensive diabetes care with patient teaching and counseling about the importance of adherence to prescribed diabetes regimen, euglycemia, eye care and foot care. 4. JENNYFER - Etiology unclear. 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 Will hold lorsatan, treat with D50W and insulin and also kayexalate. Will hydrate gently and monitor urine output. Check CPK. Will consult nephrology and avoid nephrotoxic agents such as NSAIDS, aminoglycosides, contrast dyes and certain Alternative medicine products. 5. Anemia - Likely multifactorial. Mo do basic anemia work up including serial stool guaiacs, reticulocyte count and iron studies. Would benefit from Procrit therapy once iron replete. 6. Polypharmacy - Will liaise with patient's PCP to discontinue medications that are not absolutely essential. 7. Hypertension -Hold antihypertensive drugs for now. Restart suitable outpatient antihypertensive drugs when clinically appropriate. 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 Nonpharmacologic measures to control hypertension like weight loss, salt restriction and exercise discussed. Importance of adherence to treatment regimen and attainment of normotension emphasized. 8. DVT prophylaxis -On Xarelto for Afib 9. Advance directives - Full code
[2019-08-25] MEDS ORDERED: SODIUM CHLORIDE 500 ML IV STA (03:33)
--- NOTE | 2019-08-25 06:47 | HP ---
CHIEF COMPLAINT: tremulousness PCP: Dr. Candelaria HISTORY OF PRESENT ILLNESS: 84 y/o male PMH HTN, HLD, DM, CAD s/p 7 stents, afib on Xarelto, systolic CHF, CKD3a, COPD on home o2, hypothyroidism, and schizophrenia BIBEMS 2/2 being found to have low blood glucose at [facility]. Pt reported to be AOx2 at baseline and was less responsive and tremulous, which prompted staff to send pt to ED. In ED pt was found to have rectal temp 102.2F, respiratory rate of 22, and suspected PNA on CT. Pt not cooperative with exam - alert but oriented to person only. ER course was notable for: (1) Vanc and zosyn administered (2) 500 cc bolus NS (3) 20 mg Lasix administered PAST MEDICAL HISTORY: HTN, HLD, DM, CAD s/p 7 stents, afib on Xarelto, systolic CHF, CKD3a, COPD on home o2, hypothyroidism, and schizophrenia PAST SURGICAL HISTORY: Social History per chart review: Smoking:Denies Alcohol: Socially Drugs: Denies Allergies: No Known Drug Allergies Allergy (Verified 08/24/19 21:17) HOME MEDICATIONS: REVIEW OF SYSTEMS CONSTITUTIONAL: Absent: fever, chills, diaphoresis, generalized weakness, malaise, loss of appetite, weight change HEENT: Absent: rhinorrhea, nasal congestion, throat pain, throat swelling, difficulty swallowing, mouth swelling, ear pain, eye pain, visual changes CARDIOVASCULAR: Absent: chest pain, syncope, palpitations, irregular heart rate, lightheadedness , peripheral edema RESPIRATORY: Absent: cough, shortness of breath, dyspnea with exertion, orthopnea, wheezing, stridor, hemoptysis GASTROINTESTINAL: Absent: abdominal pain, abdominal distension, nausea, vomiting, diarrhea, constipation, melena, hematochezia GENITOURINARY: Absent: dysuria, frequency, urgency, hesitancy, hematuria, flank pain, genital pain MUSCULOSKELETAL: Absent: myalgia, arthralgia, joint swelling, back pain, neck pain SKIN: Absent: rash, itching, pallor HEMATOLOGIC/IMMUNOLOGIC: Absent: easy bleeding, easy bruising, lymphadenopathy, frequent infections ENDOCRINE: Absent: unexplained weight gain, unexplained weight loss, heat intolerance, cold intolerance NEUROLOGIC: Absent: headache, focal weakness or paresthesias, dizziness, unsteady gait, seizure, mental status changes, bladder or bowel incontinence PSYCHIATRIC: Absent: anxiety, depression, suicidal or homicidal ideation, hallucinations. PHYSICAL EXAMINATION Vital Signs - 24 hr 08/24/19 08/24/19 08/24/19 21:17 21:23 21:29 Temperature 98.0 F 102.2 F H Pulse Rate 78 Pulse Rate [#1] Pulse Rate [ 63 Left Radial] Respiratory 16 16 Rate Respiratory Rate [#1] Blood Pressure 119/83 Blood Pressure [#1] Blood Pressure 143/98 [Right Arm] O2 Sat by Pulse 93 L 97 Oximetry (%) O2 Sat by Pulse Oximetry (%) [ #1] 08/25/19 08/25/19 08/25/19 01:45 03:36 03:36 Temperature 98.2 F Pulse Rate Pulse Rate [#1] 60 Pulse Rate [ 67 Left Radial] Respiratory 22 H Rate Respiratory 16 Rate [#1] Blood Pressure Blood Pressure 82/56 L [#1] Blood Pressure 87/60 L [Right Arm] O2 Sat by Pulse 100 Oximetry (%) O2 Sat by Pulse 100 Oximetry (%) [ #1] 08/25/19 05:35 Temperature Pulse Rate Pulse Rate [#1] Pulse Rate [ 60 Left Radial] Respiratory 18 Rate Respiratory Rate [#1] Blood Pressure Blood Pressure [#1] Blood Pressure 91/61 [Right Arm] O2 Sat by Pulse 97 Oximetry (%) O2 Sat by Pulse Oximetry (%) [ #1] GENERAL: AOx1, in no acute distress, laying in right lateral decubitus with bed in Trendelenburg HEAD: NCAT EYES: GARRY, EOMI, conjunctiva clear. ENT: Ears normal, nares patent, oropharynx clear without exudates. Moist mucous membranes. NECK: Normal range of motion, supple without lymphadenopathy, JVD, or masses. LUNGS: BL wheezes. Crackles at bases BL. No accessory muscle use. HEART: Soft/hard to appreicate. RRR s1 s2 ABDOMEN: Soft, BS present in all 4 quadrants, non-distended, no JVD, MUSCULOSKELETAL: No bony deformities or tenderness. No CVA tenderness. UPPER EXTREMITIES: 2+ pulses, warm, well-perfused. No cyanosis. No clubbing. No peripheral edema. LOWER EXTREMITIES: Atrophied BL. 2+ pulses, warm, well-perfused. No calf tenderness. No peripheral edema. NEUROLOGICAL: No focal deficits. Cranial nerves II-XII intact. Normal speech. Gait not appreciated. PSYCHIATRIC: Cooperative. Tangential. SKIN: Warm, dry, normal turgor, BL LE extensor surface abrasions Laboratory Results - last 24 hr 08/24/19 08/24/19 08/24/19 21:27 21:46 22:40 WBC 6.6 RBC 2.95 L Hgb 9.7 L Hct 30.0 L D MCV 101.5 H MCH 32.7 MCHC 32.2 RDW 17.3 H Plt Count 222 D MPV 10.2 D Absolute Neuts (auto) 5.5 Neutrophils % 83.8 H D Lymphocytes % 4.9 L D Monocytes % 10.2 Eosinophils % 0.4 D Basophils % 0.7 Nucleated RBC % 0 PT with INR 32.10 H INR 2.69 H PTT (Actin FS) 40.9 H VBG pH POC VBG pCO2 POC VBG pO2 VBG HCO3 VBG O2 Sat (Gabriela) VBG Base Excess Sodium Potassium Chloride Carbon Dioxide Anion Gap BUN Creatinine Est GFR (CKD-EPI)AfAm Est GFR (CKD-EPI)NonAf POC Glucometer Random Glucose Lactic Acid Calcium Total Bilirubin AST ALT Alkaline Phosphatase Troponin I B-Natriuretic Peptide Total Protein Albumin Urine Color Urine Appearance Urine pH Ur Specific [place] Urine Protein Urine Glucose (UA) Urine Ketones Urine Blood Urine Nitrite Urine Bilirubin Urine Urobilinogen Ur Leukocyte Esterase Influenza A (Rapid) Negative Influenza B (Rapid) Negative 08/24/19 08/24/19 08/24/19 22:40 22:40 22:40 WBC RBC Hgb Hct MCV MCH MCHC RDW Plt Count MPV Absolute Neuts (auto) Neutrophils % Lymphocytes % Monocytes % Eosinophils % Basophils % Nucleated RBC % PT with INR INR PTT (Actin FS) VBG pH POC VBG pCO2 POC VBG pO2 VBG HCO3 VBG O2 Sat (Gabriela) VBG Base Excess Sodium 135 L Potassium 6.1 H* Chloride 101 Carbon Dioxide 23 Anion Gap 11 BUN 49.2 H Creatinine 1.4 H Est GFR (CKD-EPI)AfAm 53.09 Est GFR (CKD-EPI)NonAf 45.81 POC Glucometer Random Glucose 142 H Lactic Acid 4.5 H* Calcium 8.4 L Total Bilirubin 0.9 AST 35 ALT 24 Alkaline Phosphatase 135 H Troponin I 0.89 H* B-Natriuretic Peptide 09887.1 H Total Protein 6.8 Albumin 3.1 L Urine Color Urine Appearance Urine pH Ur Specific [place] Urine Protein Urine Glucose (UA) Urine Ketones Urine Blood Urine Nitrite Urine Bilirubin Urine Urobilinogen Ur Leukocyte Esterase Influenza A (Rapid) Influenza B (Rapid) 08/24/19 08/25/19 08/25/19 22:40 01:21 01:45 WBC RBC Hgb Hct MCV MCH MCHC RDW Plt Count MPV Absolute Neuts (auto) Neutrophils % Lymphocytes % Monocytes % Eosinophils % Basophils % Nucleated RBC % PT with INR INR PTT (Actin FS) VBG pH 7.41 POC VBG pCO2 31.1 L POC VBG pO2 130 H VBG HCO3 19.5 L VBG O2 Sat (Gabriela) 99.0 H VBG Base Excess -3.8 L Sodium Potassium Chloride Carbon Dioxide Anion Gap BUN Creatinine Est GFR (CKD-EPI)AfAm Est GFR (CKD-EPI)NonAf POC Glucometer 242 Random Glucose Lactic Acid Calcium Total Bilirubin AST ALT Alkaline Phosphatase Troponin I 0.86 H* B-Natriuretic Peptide Total Protein Albumin Urine Color Urine Appearance Urine pH Ur Specific [place] Urine Protein Urine Glucose (UA) Urine Ketones Urine Blood Urine Nitrite Urine Bilirubin Urine Urobilinogen Ur Leukocyte Esterase Influenza A (Rapid) Influenza B (Rapid) 08/25/19 08/25/19 08/25/19 01:45 01:45 01:45 WBC RBC Hgb Hct MCV MCH MCHC RDW Plt Count MPV Absolute Neuts (auto) Neutrophils % Lymphocytes % Monocytes % Eosinophils % Basophils % Nucleated RBC % PT with INR INR PTT (Actin FS) VBG pH POC VBG pCO2 POC VBG pO2 VBG HCO3 VBG O2 Sat (Gabriela) VBG Base Excess Sodium 136 Potassium 5.9 H Chloride 104 Carbon Dioxide 22 Anion Gap 10 BUN 51.8 H Creatinine 1.4 H Est GFR (CKD-EPI)AfAm 53.09 Est GFR (CKD-EPI)NonAf 45.81 POC Glucometer Random Glucose 214 H Lactic Acid 2.6 H* Calcium 8.4 L Total Bilirubin AST ALT Alkaline Phosphatase Troponin I B-Natriuretic Peptide Total Protein Albumin Urine Color Yellow Urine Appearance Clear Urine pH 6.5 D Ur Specific [place] 1.016 Urine Protein Negative Urine Glucose (UA) Negative Urine Ketones Negative Urine Blood Negative Urine Nitrite Negative Urine Bilirubin Negative Urine Urobilinogen 1.0 Ur Leukocyte Esterase Negative Influenza A (Rapid) Influenza B (Rapid) ASSESSMENT/PLAN: 84 y/o male PMH HTN, HLD, DM, CAD s/p 7 stents, afib on Xarelto, systolic CHF, CKD3a, COPD on home o2, hypothyroidism, and schizophrenia BIBEMS 2/2 being found to have low blood glucose at [facility], reported to be AOx2 at baseline and was less responsive and tremulous. In ED pt was found to have rectal temp 102.2F , respiratory rate of 22, and suspected PNA on CT consistent with sepsis. # CHF exacerbation - Crackles at lung bases, BNP 10,305.1 - 350 cc output to Arroyo s/p 20 mg IV lasix in ED - Lasix 40 mg IV QD # Sepsis likely 2/2 PNA - Cont vanc/zosyn renally dosed - F/u urine legionella - F/u blood culture - F/u sputum culture - Consult ID # JENNYFER on CKD3a - CMP in AM - urine osms - Consult nephro # Macrocytic anemia - b12/folate level - Serum fe, TIBC, retic, fobt # Troponemia - Likely 2/2 demand - F/u Trop # 3 - Consult cardiology # DM - Hold home regimen - ISS ACHS # HTN - Med reconciliation needed # HLD - Med reconciliation needed # F/E/N - Bolus gently as appropriate - Cont. to monitor - Diabetic diet with low sodium modification # DVT prophylaxis - On Xarelto # Disposition - Admit to med/surg Hossein Mchugh MD ATTENDING PHYSICIAN STATEMENT I saw and evaluated the patient. I reviewed the resident's note and discussed the case with the resident. I agree with the resident's findings and plan as documented. SUBJECTIVE: OBJECTIVE: ASSESSMENT AND PLAN:
[2019-08-25] MEDS: INSULIN SLIDING SCALE (NOVOLOG) 1 VIAL SQ SCH ×3 (08:01→17:08)
[2019-08-25] MEDS ORDERED: VANCOMYCIN HCL 1,250 MG in DEXTROSE 5%-WATER - 250 ML IVPB ONE (09:00)
[2019-08-25] MEDS ORDERED: PIPERACILLIN/TAZOB 2.25 GM 2.25 GM in DEXTROSE 5%-WATER - 50 ML IVPB SCH (09:00)
[2019-08-25] MEDS ORDERED: PIPERACILLIN/TAZOB 2.25 GM 2.25 GM/50 ML BAG IVPB ONE ×2 (09:18→15:43)
[2019-08-25] MEDS: PIPERACILLIN/TAZOB 2.25 GM 2.25 GM in DEXTROSE 5%-WATER - 50 ML IVPB SCH ×3 (09:23→21:33)
[2019-08-25] MEDS ORDERED: VANCOMYCIN 1 GM in D5W (PRE-DOCKED) 1,000 MG/250 ML IVPB SCH (10:00)
--- NOTE | 2019-08-25 10:10 | CON.CARD ---
Consult Consult Specialty:: Cardiology Referred by:: Hospitalist Medicine Reason for Consultation:: CAD s/p PCI, afib - History of Present Illness Chief Complaint: Hypoglycemia r/o sepsis History of Present Illness: Patient is known to our service (previously seen in the office, but now sees Dr. Ferny Buck in [place]). 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 EMS at bedside reported they were told patient began becoming hypoglycemic in the afternoon, the lowest reading was about 41, for which the fpc gave glucose. The fpc reported to them that about an hour ago patient started shaking, altered sensorium, which made them concerned for sepsis, prompting them to call EMS. EMS reported when they arrive to the scene the patients glucose was 149 after receiving the oral glucose. Patients normal mental baseline is to be alert and oriented to person place time and situation. Patient is wheelchair and bed bound at baseline. In ED pt was found to have rectal temp 102.2F, respiratory rate of 22, and suspected PNA on CT. Pt not cooperative with exam - alert but oriented to person only. - History Source History Provided By: Medical Record Limitations to Obtaining History: Clinical Condition - Past Medical History Cardio/Vascular: Yes: AFIB, CAD, CHF, HTN, Hyperlipdemia Pulmonary: Yes: COPD, Sleep Apnea Renal/: Yes: BPH Endocrine: Yes: Diabetes Mellitus - Past Surgical History Past Surgical History: Yes: Permanent Pacemaker, TURP - Alcohol/Substance Use Hx Alcohol Use: No - Smoking History Smoking history: Never smoked Have you smoked in the past 12 months: No Aproximately how many cigarettes per day: 0 - Social History Usual Living Arrangement: Alone ADL: Support Services History of Recent Travel: No Home Medications - Allergies Allergies/Adverse Reactions: Allergies Allergy/AdvReac Type Severity Reaction Status Date / Time No Known Drug Allergies Allergy Verified 08/24/19 21:17 - Home Medications Home Medications: Ambulatory Orders Atorvastatin Ca [Lipitor] 10 mg PO HS 08/25/19 Carvedilol 3.125 mg PO BID 08/25/19 Docusate Sodium [Colace -] 100 mg PO TID 08/25/19 Famotidine [Pepcid -] 40 mg PO DAILY 08/25/19 Furosemide 20 mg PO DAILY 08/25/19 Insulin Detemir [Levemir Flextouch] 16 unit SQ DAILY 08/25/19 Insulin Lispro [Humalog] 100 unit SQ DAILY 08/25/19 Ipratropium/Albuterol Sulfate [Iprat-Albut 0.5-3(2.5) mg/3 ml] 3 ml IH QID 08/25 Levothyroxine [Synthroid -] 75 mcg PO DAILY 08/25/19 Mag Hydrox/Al Hydrox/Simeth [Mylanta *Suspension*] 30 ml PO Q6H 08/25/19 Polyethylene Glycol 3350 [Miralax (For Daily Use) -] 17 gm PO BID 08/25/19 Quetiapine Fumarate [Seroquel -] 25 mg PO BID 08/25/19 Quetiapine Fumarate [Seroquel -] 50 mg PO BID 08/25/19 Rivaroxaban [Xarelto] 20 mg PO DAILY 08/25/19 Sennosides [Senna -] 8.6 mg PO HS 08/25/19 Valsartan 160 mg PO DAILY 08/25/19 Review of Systems - Review of Systems Constitutional: reports: Chills Neurological: reports: Confusion, Tremors Vital Signs: Vital Signs Temperature 98.2 F 08/25/19 03:36 Pulse Rate 60 08/25/19 05:35 Respiratory Rate 18 08/25/19 05:35 Blood Pressure 91/61 08/25/19 05:35 O2 Sat by Pulse Oximetry (%) 97 08/25/19 05:35 Constitutional: Yes: No Distress, Calm Neck: Yes: Supple Respiratory: Yes: Regular, Diminished Gastrointestinal: Yes: Soft, Hypoactive Bowel Sounds Cardiovascular: Yes: Regular Rate and Rhythm JVD: No Carotid Bruit: No Heart Sounds: Yes: S1, S2 Murmur: Yes: Systolic Murmur, Grade 1 Edema: No - Other Data Labs, Other Data: CBC, BMP 08/24/19 22:40 08/25/19 01:45 INR, PTT INR 2.69 (0.83-1.09) H 08/24/19 21:27 Troponin, BNP 08/24/19 08/25/19 22:40 01:45 Troponin I 0.89 H* 0.86 H* B-Natriuretic Peptide 17462.1 H Troponin, BNP 08/24/19 08/25/19 22:40 01:45 Troponin I 0.89 H* 0.86 H* B-Natriuretic Peptide 64896.1 H EKG shows atrial-sensed ventricular paced rhythm with prolonged QTc and no significant ST-T wave changes Ejection Fraction %: LVEF < 40 % Imaging - Results Chest X-ray: Report Reviewed (Fluid horizontal fissure) Cat Scan: Report Reviewed (HCT: Negative) Problem List - Problems (1) JENNYFER (acute kidney injury) Code(s): N17.9 - ACUTE KIDNEY FAILURE, UNSPECIFIED (2) Hyperkalemia Code(s): E87.5 - HYPERKALEMIA (3) Pneumonia Code(s): J18.9 - PNEUMONIA, UNSPECIFIED ORGANISM Qualifiers: Pneumonia type: due to unspecified organism Laterality: bilateral Lung location: lower lobe of lung Qualified Code(s): J18.9 - Pneumonia, unspecified organism (4) Anemia Code(s): D64.9 - ANEMIA, UNSPECIFIED (5) Atrial fibrillation with controlled ventricular rate Code(s): I48.91 - UNSPECIFIED ATRIAL FIBRILLATION (6) CHF (congestive heart failure) Code(s): I50.9 - HEART FAILURE, UNSPECIFIED Qualifiers: Heart failure type: combined systolic and diastolic Heart failure chronicity: chronic Qualified Code(s): I50.42 - Chronic combined systolic ( congestive) and diastolic (congestive) heart failure (7) Chronic anticoagulation Code(s): Z79.01 - 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 (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) USE OF ANTICOAGULANTS (8) Hypercholesterolemia Code(s): E78.00 - PURE HYPERCHOLESTEROLEMIA, UNSPECIFIED (9) Hypothyroid Code(s): E03.9 - HYPOTHYROIDISM, UNSPECIFIED Qualifiers: Hypothyroidism type: unspecified Qualified Code(s): E03.9 - Hypothyroidism , unspecified (10) IDDM (insulin dependent diabetes mellitus) Code(s): E11.9 - TYPE 2 DIABETES MELLITUS WITHOUT COMPLICATIONS; Z79.4 - RETIREMENT (CURRENT) USE OF INSULIN (11) Presence of permanent cardiac pacemaker Code(s): Z95.0 - PRESENCE OF CARDIAC PACEMAKER (12) Sleep apnea Code(s): G47.30 - SLEEP APNEA, UNSPECIFIED Qualifiers: Sleep apnea type: unspecified type Qualified Code(s): G47.30 - Sleep apnea , unspecified Assessment/Plan 08/24 CT abdomen/pelvis without contrast showed "Nodular contour of the liver compatible with cirrhosis. There is large quantity of colonic gas as well as a large stool burden most compatible with constipation. There is thickening of the low rectum; this may be related to underdistention although neoplasm cannot be excluded. Recommend proctoscopy. There is asymmetric wall thickening of the urinary bladder with question of a nodule anteriorly which measures approximately 8 mm. Alternatively this may represent an indentation from an enlarged prostate There is evidence of prior TURP. 07/12/2018 Echo: Normal LV size with mod decreased LV fxn, RV paced, mild ROGER, mild-mod TR, mild MR 1. Septic shock/pneumonia 2. 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 CAD post PCI/stent, demand ischemia referable to #1 3. Persistent atrial fibrillation [id number] 6 on A/C with DOAC's/Xarelto 4. AV block post PPM 5. HTN 6. DM 7. Hypercholesterolemia 8. COPD 9. Shock liver resolving 10. Acute kidney injury with hyperkalemia, pre-renal azotemia 11. Anemia 12, Hypothyroidism PLAN: 1. IVF, pressors to maintain MAP>65 mmHg, empiric abx per C&S, trend trops, LFTs and lactate to document peak 2. Hold Coreg and Cozaar pending hemodynamic stability and renal fxn, hyperkalemia recovery 3. Continue Xarelto with caution and close monitoring of Hg, transfuse to maintain Hg equal or > 8.0 4. Diuresis as needed to keep even 5. F/u echocardiogram already ordered 6. Thank you for consultative opportunity
[2019-08-25] MEDS: FUROSEMIDE 40 MG/4 ML INJECTABLE VIAL IVPUSH SCH (10:56)
[2019-08-25 12:09] LABS: BASO % 0.7 % (0-2.0); EOS % 1.8 % (0-4.5); HEMOGLOBIN 10.7 GM/dL (11.7-16.9); LYMPH % 4.3 % (8-40); MCH 32.7 pg (25.7-33.7); MCHC 32.4 g/dl (32.0-35.9); MEAN CELL VOLUME 101.1 fl (80-96); MEAN PLT VOLUME 10.4 fl (7.5-11.1); MONO % 7.2 % (3.8-10.2); PLATELET COUNT 215 K/MM3 (134-434); RBC 3.26 M/mm3 (4.00-5.60); RDW 17.9 % (11.9-15.9); RETICULOCYTES 0.91 % (0.5-1.5); WHITE BLOOD COUNT 10.7 K/mm3 (4.0-10.0)
[2019-08-25 12:56] LABS: IRON SERUM 31 ug/dL (50-175); TOTAL IRON BINDING CAPACITY 402 ug/dL (250-450)
[2019-08-25 13:13] LABS: ALBUMIN 3.2 g/dl (3.4-5.0); BILIRUBIN,TOTAL 1.1 mg/dL (0.2-1); BLOOD UREA NITROGEN 50.7 mg/dL (7-18); CALCIUM 8.6 mg/dL (8.5-10.1); CREATININE 1.6 mg/dL (0.55-1.3); MAGNESIUM 2.7 mg/dL (1.8-2.4); PHOSPHOROUS 4.3 mg/dL (2.5-4.9); POTASSIUM 5.5 mmol/L (3.5-5.1); TOT PROT 7.2 g/dl (6.4-8.2)
--- NOTE | 2019-08-25 14:06 | EKG ---
Test Reason : Blood Pressure : / mmHG Vent. Rate : 067 BPM Atrial Rate : 067 BPM P-R Int : 230 ms QRS Dur : 162 ms QT Int : 544 ms P-R-T Axes : 057 -43 110 degrees QTc Int : 574 ms POOR DATA QUALITY, INTERPRETATION MAY BE ADVERSELY AFFECTED Atrial-sensed ventricular-paced rhythm with prolonged AV conduction ABNORMAL ECG WHEN COMPARED WITH ECG OF 11-JUL-2018 09:33, VENT. RATE HAS INCREASED BY 5 BPM Confirmed by ANNA GREEN MD ([id number]) on 08/25/2019 2:06:11 PM Referred By: Confirmed By:ANNA GREEN MD
[2019-08-25] MEDS ORDERED: SENNOSIDES 8.6MG TABLET (FP) PO PRN (16:09)
--- NOTE | 2019-08-25 16:12 | PN ---
Progress Note, Physician Chief Complaint: Sepsis Fever History of Present Illness: NAD lethargic - Current Medication List Current Medications: Active Medications Furosemide (Lasix Injection -) 40 mg IVPUSH DAILY [facility] Last Admin: 08/25/19 10:56 Dose: Not Given Piperacillin Sod/Tazobactam (Sod 2.25 gm/ Dextrose) 50 mls @ 100 mls/hr IVPB Q6H-IV [facility]; Protocol Piperacillin Sod/Tazobactam (Sod 2.25 gm/ Dextrose) 50 mls @ 100 mls/hr IVPB Q6H-IV [facility] Stop: 08/26/19 03:29 Last Admin: 08/25/19 15:49 Dose: 100 mls/hr Insulin Aspart (Novolog Vial Sliding Scale -) 1 vial SQ TIDAC [facility]; Protocol Last Admin: 08/25/19 11:53 Dose: Not Given Vancomycin HCl (Vancomycin (Pre-Docked)) 1,000 mg IVPB DAILY [facility]; Protocol - Objective Vital Signs: Vital Signs Temperature 98.4 F 08/25/19 15:59 Pulse Rate 60 08/25/19 15:59 Respiratory Rate 18 08/25/19 15:59 Blood Pressure 106/62 08/25/19 15:59 O2 Sat by Pulse Oximetry (%) 100 08/25/19 15:59 Constitutional: Yes: No Distress, Calm, Thin Respiratory: Yes: On Nasal O2, Tachypnea Gastrointestinal: Yes: Normal Bowel Sounds, Soft Genitourinary: Yes: Incontinence Musculoskeletal: Yes: Muscle Weakness Extremities: Yes: WNL Edema: No Peripheral Pulses WNL: Yes Neurological: Yes: Alert, Confusion Psychiatric: Yes: Alert Labs: CBC, BMP 08/25/19 11:45 08/25/19 11:45 INR, PTT INR 2.69 (0.83-1.09) H 08/24/19 21:27 Problem List - Problems (1) JENNYFER (acute kidney injury) Assessment/Plan: -nephrology consult -monitor trend Problems reviewed: Yes Code(s): N17.9 - ACUTE KIDNEY FAILURE, UNSPECIFIED (2) Bacteremia Assessment/Plan: -ID consult -IV abx -febrile Problems reviewed: Yes Code(s): R78.81 - BACTEREMIA (3) Sepsis Assessment/Plan: -IV abx -ID consult -Cultures pending -no leukocytosis Problems reviewed: Yes Code(s): A41.9 - SEPSIS, UNSPECIFIED ORGANISM (4) Hyperkalemia Assessment/Plan: -Improved -nephrology consult -monitor trend Problems reviewed: Yes Code(s): E87.5 - HYPERKALEMIA (5) Lactic acidosis Assessment/Plan: -repeat LA in AM -IV abx -ID consult -Cultures pending -no leukocytosis Problems reviewed: Yes Code(s): E87.2 - ACIDOSIS (6) Elevated troponin Assessment/Plan: -Seen by cardiology -likely 2/2 to sepsis -pt denies any CP Problems reviewed: Yes Code(s): R79.89 - OTHER SPECIFIED ABNORMAL FINDINGS OF BLOOD CHEMISTRY Assessment/Plan see problem list
[2019-08-25] MEDS ORDERED: MAG HYDROX/AL HYDROX/SIMETH 30 ML UNIT-DOSE CUP PO PRN (16:15)
[2019-08-25] MEDS: RIVAROXABAN 15 MG TABLET PO SCH (18:32)
[2019-08-25] MEDS ORDERED: QUEtiapine FUMARATE 50 MG TABLET ONE (20:58)
[2019-08-25] MEDS ORDERED: QUEtiapine FUMARATE 25 MG TABLET (FP) ONE (20:59)
[2019-08-25] MEDS ORDERED: DEXTROSE 5%-WATER - 50 ML IVPB ONE (20:59)
[2019-08-25] MEDS ORDERED: PIPERACILLIN/TAZOBACTAM 2.25 GM VIAL IVPB ONE (20:59)
[2019-08-25] MEDS: ALBUTEROL SO4 2.5/IPRATROPIUM 0.5 INH SOL 3 ML VIAL.NEB. NEB SCH (21:30)
[2019-08-25] MEDS: QUETIAPINE FUMARATE 50 MG, QUETIAPINE FUMARATE 25 MG PO SCH (21:33)
[2019-08-25] MEDS: DOCUSATE SODIUM 100 MG CAPSULE (FP) PO SCH (21:34)
[2019-08-25] MEDS: ATORVASTATIN CA 10 MG TABLET (FP) PO SCH (21:34)
[2019-08-25] MEDS: POLYETHYLENE GLYCOL 3350 119 GM BTL PO SCH (21:34)
[2019-08-25] MEDS ORDERED: QUEtiapine FUMARATE 50 MG TABLET PO SCH ×2 (22:00)
--- NOTE | 2019-08-25 23:35 | CON.NEP ---
Consult Consult Specialty:: Nephrology Referred by:: dr salguero Reason for Consultation:: azotemia - History of Present Illness Chief Complaint: malaise, fever History of Present Illness: 84 y/o male PMH HTN, HLD, DM, CAD s/p 7 stents, afib on Xarelto, systolic CHF, CKD3a, COPD on home o2, hypothyroidism, and schizophrenia BIBEMS 2/2 being s/p found to have low blood glucose at [facility]. less responsive and tremulous, send pt to ED. I rectal temp 102.2F in ER , respiratory rate of 22, admitted with suspected PNA confirmed by chest CT. covered with Vanc and zosyn and 500 cc bolus NS 20 mg Lasix was administered CBC, BMP 08/25/19 11:45 08/25/19 11:45 - Past Medical History Cardio/Vascular: Yes: AFIB, CAD, CHF, HTN, Hyperlipdemia Pulmonary: Yes: COPD, Sleep Apnea Renal/: Yes: BPH Endocrine: Yes: Diabetes Mellitus - Past Surgical History Past Surgical History: Yes: Permanent Pacemaker, TURP - Alcohol/Substance Use Hx Alcohol Use: No - Smoking History Smoking history: Never smoked Have you smoked in the past 12 months: No Aproximately how many cigarettes per day: 0 - Social History Usual Living Arrangement: Alone ADL: Support Services History of Recent Travel: No Home Medications - Allergies Allergies/Adverse Reactions: Allergies Allergy/AdvReac Type Severity Reaction Status Date / Time No Known Drug Allergies Allergy Verified 08/24/19 21:17 - Home Medications Home Medications: Ambulatory Orders Atorvastatin Ca [Lipitor] 10 mg PO HS 08/25/19 Carvedilol 3.125 mg PO BID 08/25/19 Docusate Sodium [Colace -] 100 mg PO TID 08/25/19 Famotidine [Pepcid -] 40 mg PO DAILY 08/25/19 Furosemide 20 mg PO DAILY 08/25/19 Insulin Detemir [Levemir Flextouch] 16 unit SQ DAILY 08/25/19 Insulin Lispro [Humalog] 100 unit SQ DAILY 08/25/19 Ipratropium/Albuterol Sulfate [Iprat-Albut 0.5-3(2.5) mg/3 ml] 3 ml IH QID 08/25 Levothyroxine [Synthroid -] 75 mcg PO DAILY 08/25/19 Mag Hydrox/Al Hydrox/Simeth [Mylanta *Suspension*] 30 ml PO Q6H 08/25/19 Polyethylene Glycol 3350 [Miralax (For Daily Use) -] 17 gm PO BID 08/25/19 Quetiapine Fumarate [Seroquel -] 25 mg PO BID 08/25/19 Quetiapine Fumarate [Seroquel -] 50 mg PO BID 08/25/19 Rivaroxaban [Xarelto] 20 mg PO DAILY 08/25/19 Sennosides [Senna -] 8.6 mg PO HS 08/25/19 Valsartan 160 mg PO DAILY 08/25/19 Nephrology Consult - Height Height: 5 ft 10 in - Weight Weight: 142 lb 7 oz - BMI Body Mass Index (BMI): 20.4 - Lab Results CBC,BMP: CBC, BMP 08/25/19 11:45 08/25/19 11:45 Anion Gap: Anion Gap Anion Gap 9 MMOL/L (8-16) 08/25/19 11:45 - Physical Examination Vital Signs: Vital Signs Temperature 98.4 F 08/25/19 17:28 Pulse Rate 61 08/25/19 20:48 Respiratory Rate 18 08/25/19 17:28 Blood Pressure 113/62 08/25/19 20:48 O2 Sat by Pulse Oximetry (%) 96 08/25/19 21:00 Constitutional: Yes: Well Nourished, No Distress, Calm Eyes: Yes: WNL, Conjunctiva Clear, EOM Intact HENT: Yes: WNL, Atraumatic, Normocephalic Neck: Yes: WNL, Supple, Trachea Midline Cardiovascular: Yes: WNL, Regular Rate and Rhythm Respiratory: Yes: WNL, Regular, CTA Bilaterally Gastrointestinal: Yes: WNL, Normal Bowel Sounds Renal/: Yes: WNL Musculoskeletal: Yes: WNL Extremities: Yes: WNL Integumentary: Yes: WNL Neurological: Yes: WNL, Alert, Oriented Psychiatric: Yes: WNL, Alert, Oriented Assessment/Plan admitted with fever and ja probably prerenal in setting of sepsis no oliguric Hypertension, Hyperlipidemia, CAD (s/p stent x7), COPD (on home O2), Congestive heart failure, Atrial fibrillation on Xarelto, Insulin-treated DM, Chronic venous insufficiency, BPH, Anemia, Hypothyroidism, Alzheimers (normal baseline a&Ox3), Schizophrenia and Dysphagia Plan- IVF support IV abx
[2019-08-26] MEDS ORDERED: PIPERACILLIN/TAZOBACTAM 2.25 GM VIAL IVPB ONE ×2 (02:35→17:11)
[2019-08-26] MEDS ORDERED: DEXTROSE 5%-WATER - 50 ML IVPB ONE ×2 (02:36→17:11)
[2019-08-26] MEDS: PIPERACILLIN/TAZOB 2.25 GM 2.25 GM in DEXTROSE 5%-WATER - 50 ML IVPB SCH ×2 (03:04→17:56)
[2019-08-26] MEDS: INSULIN SLIDING SCALE (NOVOLOG) 1 VIAL SQ SCH ×3 (06:30→17:05)
[2019-08-26] MEDS: DOCUSATE SODIUM 100 MG CAPSULE (FP) PO SCH ×3 (06:30→21:35)
[2019-08-26] MEDS: LEVOTHYROXINE NA 75 MCG TABLET (FP) PO SCH (06:30)
[2019-08-26] MEDS: POLYETHYLENE GLYCOL 3350 119 GM BTL PO SCH ×3 (06:30→21:35)
[2019-08-26] MEDS: ALBUTEROL SO4 2.5/IPRATROPIUM 0.5 INH SOL 3 ML VIAL.NEB. NEB SCH ×4 (07:30→20:02)
[2019-08-26 09:00] LABS: BASO % 1.2 % (0-2.0); EOS % 0.6 % (0-4.5); HEMATOCRIT 29.8 % (35.4-49); HEMOGLOBIN 9.8 GM/dL (11.7-16.9); LYMPH % 14.3 % (8-40); MCH 32.8 pg (25.7-33.7); MCHC 32.9 g/dl (32.0-35.9); MEAN CELL VOLUME 99.8 fl (80-96); MEAN PLT VOLUME 10.7 fl (7.5-11.1); MONO % 13.2 % (3.8-10.2); NEUT % 70.7 % (42.8-82.8); PLATELET COUNT 216 K/MM3 (134-434); RBC 2.98 M/mm3 (4.00-5.60); RDW 17.8 % (11.9-15.9); WHITE BLOOD COUNT 6.5 K/mm3 (4.0-10.0)
[2019-08-26] MEDS ORDERED: QUEtiapine FUMARATE 25 MG TABLET (FP) ONE ×2 (09:21→21:10)
[2019-08-26] MEDS ORDERED: QUEtiapine FUMARATE 50 MG TABLET ONE ×2 (09:21→21:10)
[2019-08-26] MEDS ORDERED: VANCOMYCIN 1 GM in D5W (PRE-DOCKED) 1,000 MG/250 ML IVPB SCH (10:00)
[2019-08-26] MEDS ORDERED: RIVAROXABAN 10 MG TABLET PO SCH (10:00)
[2019-08-26 10:01] LABS: ALBUMIN 3.1 g/dl (3.4-5.0); BILIRUBIN,DIRECT 0.6 mg/dL (0.0-0.2); BILIRUBIN,TOTAL 1.2 mg/dL (0.2-1); TOT PROT 6.9 g/dl (6.4-8.2)
[2019-08-26 10:12] LABS: BLOOD UREA NITROGEN 63.2 mg/dL (7-18); CALCIUM 8.6 mg/dL (8.5-10.1); POTASSIUM 5.5 mmol/L (3.5-5.1)
[2019-08-26] MEDS: QUETIAPINE FUMARATE 50 MG, QUETIAPINE FUMARATE 25 MG PO SCH ×2 (10:26→21:35)
[2019-08-26] MEDS: FUROSEMIDE 40 MG/4 ML INJECTABLE VIAL IVPUSH SCH (10:26)
--- NOTE | 2019-08-26 12:22 | PN ---
Progress Note, Physician Chief Complaint: Sepsis Fever History of Present Illness: NAD much more alert but confused Repeat Trop elevated, cardiology aware Pt denies any CP - Current Medication List Current Medications: Active Medications Al Hydroxide/Mg Hydroxide (Mylanta Oral Suspension -) 30 ml PO Q6H PRN PRN Reason: DYSPEPSIA Albuterol/Ipratropium (Duoneb -) 1 amp NEB RQID [facility] Last Admin: 08/26/19 07:30 Dose: 1 amp Atorvastatin Calcium (Lipitor -) 10 mg PO HS [facility] Last Admin: 08/25/19 21:34 Dose: 10 mg Docusate Sodium (Colace -) 100 mg PO TID [facility] Last Admin: 08/26/19 06:30 Dose: 100 mg Furosemide (Lasix Injection -) 40 mg IVPUSH DAILY [facility] Last Admin: 08/26/19 10:26 Dose: 40 mg Piperacillin Sod/Tazobactam (Sod 2.25 gm/ Dextrose) 50 mls @ 100 mls/hr IVPB Q6H-IV [facility]; Protocol Insulin Aspart (Novolog Vial Sliding Scale -) 1 vial SQ TIDAC [facility]; Protocol Last Admin: 08/26/19 06:30 Dose: Not Given Levothyroxine Sodium (Synthroid -) 75 mcg PO ACBK [facility] Last Admin: 08/26/19 06:30 Dose: 75 mcg Polyethylene Glycol (Miralax (For Daily Use) -) 17 gm PO TID [facility] Last Admin: 08/26/19 06:30 Dose: 17 grams Quetiapine Fumarate 50 mg/ (Quetiapine Fumarate 25 mg) 75 mg PO BID [facility] Last Admin: 08/26/19 10:26 Dose: 75 mg Rivaroxaban (Xarelto) 15 mg PO DAILY@1800 [facility] Last Admin: 08/25/19 18:32 Dose: 15 mg Senna (Senna -) 2 tab PO HS PRN PRN Reason: CONSTIPATION Vancomycin HCl (Vancomycin (Pre-Docked)) 1,000 mg IVPB DAILY [facility]; Protocol - Objective Vital Signs: Vital Signs Temperature 98.1 F 08/26/19 08:00 Pulse Rate 74 08/26/19 08:00 Respiratory Rate 18 08/26/19 09:00 Blood Pressure 111/54 L 08/26/19 08:00 O2 Sat by Pulse Oximetry (%) 96 08/26/19 09:00 Constitutional: Yes: No Distress, Calm, Thin Cardiovascular: Yes: Regular Rate and Rhythm Respiratory: Yes: Regular, On Nasal O2, Tachypnea Gastrointestinal: Yes: Normal Bowel Sounds, Soft, Abdomen, Obese Genitourinary: Yes: Incontinence Musculoskeletal: Yes: Muscle Weakness Extremities: Yes: WNL Edema: No Peripheral Pulses WNL: Yes Neurological: Yes: Alert, Confusion Psychiatric: Yes: Alert Labs: CBC, BMP 08/26/19 07:48 08/26/19 07:48 INR, PTT INR 2.69 (0.83-1.09) H 08/24/19 21:27 Problem List - Problems (1) JENNYFER (acute kidney injury) Assessment/Plan: -nephrology consult -monitor trend Problems reviewed: Yes Code(s): N17.9 - ACUTE KIDNEY FAILURE, UNSPECIFIED (2) Bacteremia Assessment/Plan: -ID consult -IV abx -febrile -Culture: MSSA -Contact isolation Problems reviewed: Yes Code(s): R78.81 - BACTEREMIA (3) Sepsis Assessment/Plan: -IV abx -ID consult -Cultures pending -no leukocytosis Problems reviewed: Yes Code(s): A41.9 - SEPSIS, UNSPECIFIED ORGANISM (4) Hyperkalemia Assessment/Plan: -Improved -nephrology consult -monitor trend Problems reviewed: Yes Code(s): E87.5 - HYPERKALEMIA (5) Lactic acidosis Assessment/Plan: -repeat LA in AM -IV abx -ID consult -Cultures pending -no leukocytosis Problems reviewed: Yes Code(s): E87.2 - ACIDOSIS (6) Elevated troponin Assessment/Plan: -Seen by cardiology -likely 2/2 to sepsis -pt denies any CP -Echo in AM -repeat trop in AM Problems reviewed: Yes Code(s): R79.89 - OTHER SPECIFIED ABNORMAL FINDINGS OF BLOOD CHEMISTRY Assessment/Plan see problem list
--- NOTE | 2019-08-26 14:20 | PN ---
Progress Note, Physician History of Present Illness: Afebrile, more alert and interactive. - Current Medication List Current Medications: Active Medications Al Hydroxide/Mg Hydroxide (Mylanta Oral Suspension -) 30 ml PO Q6H PRN PRN Reason: DYSPEPSIA Albuterol/Ipratropium (Duoneb -) 1 amp NEB RQID [facility] Last Admin: 08/26/19 07:30 Dose: 1 amp Atorvastatin Calcium (Lipitor -) 10 mg PO HS [facility] Last Admin: 08/25/19 21:34 Dose: 10 mg Docusate Sodium (Colace -) 100 mg PO TID [facility] Last Admin: 08/26/19 06:30 Dose: 100 mg Furosemide (Lasix Injection -) 40 mg IVPUSH DAILY [facility] Last Admin: 08/26/19 10:26 Dose: 40 mg Piperacillin Sod/Tazobactam (Sod 2.25 gm/ Dextrose) 50 mls @ 100 mls/hr IVPB Q6H-IV [facility]; Protocol Insulin Aspart (Novolog Vial Sliding Scale -) 1 vial SQ TIDAC [facility]; Protocol Last Admin: 08/26/19 12:58 Dose: 2 unit Levothyroxine Sodium (Synthroid -) 75 mcg PO ACBK [facility] Last Admin: 08/26/19 06:30 Dose: 75 mcg Polyethylene Glycol (Miralax (For Daily Use) -) 17 gm PO TID [facility] Last Admin: 08/26/19 14:01 Dose: Not Given Quetiapine Fumarate 50 mg/ (Quetiapine Fumarate 25 mg) 75 mg PO BID [facility] Last Admin: 08/26/19 10:26 Dose: 75 mg Rivaroxaban (Xarelto) 15 mg PO DAILY@1800 [facility] Last Admin: 08/25/19 18:32 Dose: 15 mg Senna (Senna -) 2 tab PO HS PRN PRN Reason: CONSTIPATION Vancomycin HCl (Vancomycin (Pre-Docked)) 1,000 mg IVPB DAILY [facility]; Protocol - Objective Vital Signs: Vital Signs Temperature 98.4 F 08/26/19 14:03 Pulse Rate 68 08/26/19 14:03 Respiratory Rate 20 08/26/19 14:03 Blood Pressure 88/53 L 08/26/19 12:00 O2 Sat by Pulse Oximetry (%) 96 08/26/19 09:00 Constitutional: Yes: No Distress, Calm Neck: Yes: Supple Cardiovascular: Yes: Regular Rate and Rhythm Respiratory: Yes: Regular, Diminished, On Nasal O2 Gastrointestinal: Yes: Normal Bowel Sounds, Soft Genitourinary: Yes: [place] Present Edema: No Labs: CBC, BMP 08/26/19 07:48 08/26/19 07:48 INR, PTT INR 2.69 (0.83-1.09) H 08/24/19 21:27 Problem List - Problems (1) JENNYFER (acute kidney injury) Code(s): N17.9 - ACUTE KIDNEY FAILURE, UNSPECIFIED (2) Hyperkalemia Code(s): E87.5 - HYPERKALEMIA (3) Pneumonia Code(s): J18.9 - PNEUMONIA, UNSPECIFIED ORGANISM Qualifiers: Pneumonia type: due to unspecified organism Laterality: bilateral Lung location: lower lobe of lung Qualified Code(s): J18.9 - Pneumonia, unspecified organism (4) Anemia Code(s): D64.9 - ANEMIA, UNSPECIFIED (5) Atrial fibrillation with controlled ventricular rate Code(s): I48.91 - UNSPECIFIED ATRIAL FIBRILLATION (6) CHF (congestive heart failure) Code(s): I50.9 - HEART FAILURE, UNSPECIFIED Qualifiers: Heart failure type: combined systolic and diastolic Heart failure chronicity: chronic Qualified Code(s): I50.42 - Chronic combined systolic ( congestive) and diastolic (congestive) heart failure (7) Chronic anticoagulation Code(s): Z79.01 - SENIOR LIVING (CURRENT) USE OF ANTICOAGULANTS (8) Hypercholesterolemia Code(s): E78.00 - PURE HYPERCHOLESTEROLEMIA, UNSPECIFIED (9) Hypothyroid Code(s): E03.9 - HYPOTHYROIDISM, UNSPECIFIED Qualifiers: Hypothyroidism type: unspecified Qualified Code(s): E03.9 - Hypothyroidism , unspecified (10) IDDM (insulin dependent diabetes mellitus) Code(s): E11.9 - TYPE 2 DIABETES MELLITUS WITHOUT COMPLICATIONS; Z79.4 - SENIOR LIVING (CURRENT) USE OF INSULIN (11) Presence of permanent cardiac pacemaker Code(s): Z95.0 - PRESENCE OF CARDIAC PACEMAKER (12) Sleep apnea Code(s): G47.30 - SLEEP APNEA, UNSPECIFIED Qualifiers: Sleep apnea type: unspecified type Qualified Code(s): G47.30 - Sleep apnea , unspecified Assessment/Plan 12/20 CT abdomen/pelvis without contrast showed "Nodular contour of the liver compatible with cirrhosis. There is large quantity of colonic gas as well as a large stool burden most compatible with constipation. There is thickening of the low rectum; this may be related to underdistention although neoplasm cannot be excluded. Recommend proctoscopy. There is asymmetric wall thickening of the urinary bladder with question of a nodule anteriorly which measures approximately 8 mm. Alternatively this may represent an indentation from an enlarged prostate There is evidence of prior TURP. 07/12/2018 Echo: Normal LV size with mod decreased LV fxn, RV paced, mild ROGER, mild-mod TR, mild MR 1. MSSA sepsis/pneumonia 2. 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 CAD post PCI/stent, demand ischemia referable to #1 3. Persistent atrial fibrillation [id number] 6 on A/C with DOAC's/Xarelto 4. AV block post PPM 5. HTN 6. DM 7. Hypercholesterolemia 8. COPD 9. Shock liver resolving 10. Non-oliguric acute kidney injury with hyperkalemia, pre-renal azotemia referable to sepsis 11. Anemia 12. Hypothyroidism 13. Lactic acidosis 14. Toxic metabolic encephelopathy PLAN: 1. IVF, pressors to maintain MAP>65 mmHg, narrow abx per C&S, trend trops, LFTs and lactate to document peak 2. Hold Coreg and Cozaar pending hemodynamic stability and renal fxn, hyperkalemia recovery 3. Continue Xarelto 15 qd with caution and close monitoring of Hg, transfuse to maintain Hg equal or > 8.0 4. Diuresis as needed to keep even 5. F/u echocardiogram already ordered 6. Continue Lipitor 10 qd, Xarelto 15 qd
--- NOTE | 2019-08-26 15:41 | PN ---
Progress Note (short form) - Note Progress Note: ID CONSULT DICTATED STAPH BACTEREMIA TOXIC METABOLIC ENCEPHALOPATHY HYPOTENSIONHYPOGLYCEMIA SECONDARY TO SEPSIS ? PNEUMONIA PENDING C/S EMPIRIC VANCOMYCIN / ZOSYN
[2019-08-26] MEDS ORDERED: VANCOMYCIN 1 GRAM (PRE-DOCKED) 1,000 MG/250 ML BAG IVPB SCH (15:45)
[2019-08-26] MEDS: RIVAROXABAN 15 MG TABLET PO SCH (17:58)
[2019-08-26] MEDS: ATORVASTATIN CA 10 MG TABLET (FP) PO SCH (21:35)
--- NOTE | 2019-08-26 22:02 | PN ---
Progress Note (short form) - Note Progress Note: 84 y/o male PMH HTN, HLD, DM, CAD s/p 7 stents, afib on Xarelto, systolic CHF, CKD3a, COPD on home o2, hypothyroidism, and schizophrenia Febrile illness unclear cause Current Medications Al Hydroxide/Mg Hydroxide (Mylanta Oral Suspension -) 30 ml PO Q6H PRN PRN Reason: DYSPEPSIA Albuterol/Ipratropium (Duoneb -) 1 amp NEB RQID [facility] Last Admin: 08/26/19 20:02 Dose: 1 amp Atorvastatin Calcium (Lipitor -) 10 mg PO HS [facility] Last Admin: 08/26/19 21:35 Dose: 10 mg Docusate Sodium (Colace -) 100 mg PO TID [facility] Last Admin: 08/26/19 21:35 Dose: 100 mg Furosemide (Lasix Injection -) 40 mg IVPUSH DAILY [facility] Last Admin: 08/26/19 10:26 Dose: 40 mg Piperacillin Sod/Tazobactam (Sod 2.25 gm/ Dextrose) 50 mls @ 100 mls/hr IVPB Q8H-IV [facility]; Protocol Last Admin: 08/26/19 17:56 Dose: 100 mls/hr Vancomycin HCl (Vancomycin (Pre-Docked)) 1,000 mg in 250 mls @ 200 mls/hr IVPB Q24H [facility]; Protocol Last Admin: 08/26/19 16:57 Dose: 200 mls/hr Insulin Aspart (Novolog Vial Sliding Scale -) 1 vial SQ TIDAC [facility]; Protocol Last Admin: 08/26/19 17:05 Dose: Not Given Levothyroxine Sodium (Synthroid -) 75 mcg PO ACBK [facility] Last Admin: 08/26/19 06:30 Dose: 75 mcg Polyethylene Glycol (Miralax (For Daily Use) -) 17 gm PO TID [facility] Last Admin: 08/26/19 21:35 Dose: 17 grams Quetiapine Fumarate 50 mg/ (Quetiapine Fumarate 25 mg) 75 mg PO BID [facility] Last Admin: 08/26/19 21:35 Dose: 75 mg Rivaroxaban (Xarelto) 15 mg PO DAILY@1800 [facility] Last Admin: 08/26/19 17:58 Dose: 15 mg Senna (Senna -) 2 tab PO HS PRN PRN Reason: CONSTIPATION Last Vital Signs Temp Pulse Resp BP Pulse Ox 98.4 F 68 20 88/53 L 96 08/26/19 14:03 08/26/19 14:03 08/26/19 14:03 08/26/19 12:00 08/26/19 09:00 Constitutional: Yes: No Distress, Calm Neck: Yes: Supple Cardiovascular: Yes: Regular Rate and Rhythm Respiratory: Yes: Regular, Diminished, On Nasal O2 Gastrointestinal: Yes: Normal Bowel Sounds, Soft Genitourinary: Yes: Arroyo Present Edema: No Labs: CBC, BMP 08/26/19 07:48 08/26/19 07:48 IMP ja hyperkalemia sepsis Plan continue support IVF IV abx
[2019-08-26] MEDS ORDERED: SODIUM POLYSTYRENE SULFONATE 15 GM/60 ML BOTTLE PO ONE (22:05)
[2019-08-27] MEDS ORDERED: DEXTROSE 5%-WATER - 50 ML IVPB ONE ×3 (02:34→17:34)
[2019-08-27] MEDS ORDERED: PIPERACILLIN/TAZOBACTAM 2.25 GM VIAL IVPB ONE ×3 (02:34→17:33)
[2019-08-27] MEDS: PIPERACILLIN/TAZOB 2.25 GM 2.25 GM in DEXTROSE 5%-WATER - 50 ML IVPB SCH ×3 (02:38→17:46)
[2019-08-27] MEDS: POLYETHYLENE GLYCOL 3350 119 GM BTL PO SCH ×3 (06:30→22:55)
[2019-08-27] MEDS: LEVOTHYROXINE NA 75 MCG TABLET (FP) PO SCH (06:30)
[2019-08-27] MEDS: INSULIN SLIDING SCALE (NOVOLOG) 1 VIAL SQ SCH ×3 (06:30→17:46)
[2019-08-27] MEDS: DOCUSATE SODIUM 100 MG CAPSULE (FP) PO SCH ×3 (06:30→22:55)
[2019-08-27] MEDS: ALBUTEROL SO4 2.5/IPRATROPIUM 0.5 INH SOL 3 ML VIAL.NEB. NEB SCH ×4 (07:42→20:57)
--- NOTE | 2019-08-27 08:17 | PN ---
Progress Note, Physician - Current Medication List Current Medications: Active Medications Al Hydroxide/Mg Hydroxide (Mylanta Oral Suspension -) 30 ml PO Q6H PRN PRN Reason: DYSPEPSIA Albuterol/Ipratropium (Duoneb -) 1 amp NEB RQID [facility] Last Admin: 08/27/19 07:42 Dose: 1 amp Atorvastatin Calcium (Lipitor -) 10 mg PO HS [facility] Last Admin: 08/26/19 21:35 Dose: 10 mg Docusate Sodium (Colace -) 100 mg PO TID [facility] Last Admin: 08/27/19 06:30 Dose: 100 mg Furosemide (Lasix Injection -) 40 mg IVPUSH DAILY [facility] Last Admin: 08/26/19 10:26 Dose: 40 mg Piperacillin Sod/Tazobactam (Sod 2.25 gm/ Dextrose) 50 mls @ 100 mls/hr IVPB Q8H-IV [facility]; Protocol Last Admin: 08/27/19 02:38 Dose: 100 mls/hr Vancomycin HCl (Vancomycin (Pre-Docked)) 1,000 mg in 250 mls @ 200 mls/hr IVPB Q24H [facility]; Protocol Last Admin: 08/26/19 16:57 Dose: 200 mls/hr Insulin Aspart (Novolog Vial Sliding Scale -) 1 vial SQ TIDAC [facility]; Protocol Last Admin: 08/27/19 06:30 Dose: Not Given Levothyroxine Sodium (Synthroid -) 75 mcg PO ACBK [facility] Last Admin: 08/27/19 06:30 Dose: 75 mcg Polyethylene Glycol (Miralax (For Daily Use) -) 17 gm PO TID [facility] Last Admin: 08/27/19 06:30 Dose: 17 grams Quetiapine Fumarate 50 mg/ (Quetiapine Fumarate 25 mg) 75 mg PO BID [facility] Last Admin: 08/26/19 21:35 Dose: 75 mg Rivaroxaban (Xarelto) 15 mg PO DAILY@1800 [facility] Last Admin: 08/26/19 17:58 Dose: 15 mg Senna (Senna -) 2 tab PO HS PRN PRN Reason: CONSTIPATION - Objective Vital Signs: Vital Signs Temperature 97.3 F L 08/27/19 06:00 Pulse Rate 60 08/27/19 06:00 Respiratory Rate 20 08/27/19 06:00 Blood Pressure 82/50 L 08/27/19 06:00 O2 Sat by Pulse Oximetry (%) 96 08/27/19 00:26 Cardiovascular: Yes: S1, S2 Respiratory: Yes: Regular, CTA Bilaterally Gastrointestinal: Yes: Normal Bowel Sounds, Soft Labs: CBC, BMP 08/26/19 07:48 INR, PTT INR 2.69 (0.83-1.09) H 08/24/19 21:27 Assessment/Plan - Problems (1) JENNYFER (acute kidney injury) Assessment/Plan: -nephrology consult -monitor trend Problems reviewed: Yes Code(s): N17.9 - ACUTE KIDNEY FAILURE, UNSPECIFIED (2) Bacteremia Assessment/Plan: -ID consult -IV abx -febrile -Culture: MSSA -Contact isolation Problems reviewed: Yes Code(s): R78.81 - BACTEREMIA (3) Sepsis Assessment/Plan: -IV abx -ID consult -Cultures pending -no leukocytosis Problems reviewed: Yes Code(s): A41.9 - SEPSIS, UNSPECIFIED ORGANISM (4) Hyperkalemia Assessment/Plan: -Improved -nephrology consult -monitor trend Problems reviewed: Yes Code(s): E87.5 - HYPERKALEMIA (5) Lactic acidosis Assessment/Plan: -repeat LA in AM -IV abx -ID consult -Cultures pending -no leukocytosis Problems reviewed: Yes Code(s): E87.2 - ACIDOSIS (6) Elevated troponin Assessment/Plan: -Seen by cardiology -Trend -pt denies any CP -Echo in AM -repeat trop in AM Problems reviewed: Yes Code(s): R79.89 - OTHER SPECIFIED ABNORMAL FINDINGS OF BLOOD CHEMISTRY
[2019-08-27 08:46] LABS: BLOOD UREA NITROGEN 73.5 mg/dL (7-18); CALCIUM 8.4 mg/dL (8.5-10.1); CREATININE 1.8 mg/dL (0.55-1.3); POTASSIUM 4.1 mmol/L (3.5-5.1)
[2019-08-27] MEDS ORDERED: QUEtiapine FUMARATE 50 MG TABLET ONE (09:59)
[2019-08-27] MEDS ORDERED: QUEtiapine FUMARATE 25 MG TABLET (FP) ONE (09:59)
--- NOTE | 2019-08-27 10:32 | PN ---
Progress Note, Physician Chief Complaint: Events noted Awake, but confused History of Present Illness: Patient was seen and examined. Awake and interactive. Chart was reviewed Denies chest pain, SOB or palpitations - Current Medication List Current Medications: Active Medications Al Hydroxide/Mg Hydroxide (Mylanta Oral Suspension -) 30 ml PO Q6H PRN PRN Reason: DYSPEPSIA Albuterol/Ipratropium (Duoneb -) 1 amp NEB RQID [facility] Last Admin: 08/27/19 07:42 Dose: 1 amp Atorvastatin Calcium (Lipitor -) 10 mg PO HS [facility] Last Admin: 08/26/19 21:35 Dose: 10 mg Docusate Sodium (Colace -) 100 mg PO TID [facility] Last Admin: 08/27/19 06:30 Dose: 100 mg Furosemide (Lasix Injection -) 40 mg IVPUSH DAILY [facility] Last Admin: 08/26/19 10:26 Dose: 40 mg Piperacillin Sod/Tazobactam (Sod 2.25 gm/ Dextrose) 50 mls @ 100 mls/hr IVPB Q8H-IV [facility]; Protocol Last Admin: 08/27/19 02:38 Dose: 100 mls/hr Vancomycin HCl (Vancomycin (Pre-Docked)) 1,000 mg in 250 mls @ 200 mls/hr IVPB Q24H [facility]; Protocol Last Admin: 08/26/19 16:57 Dose: 200 mls/hr Insulin Aspart (Novolog Vial Sliding Scale -) 1 vial SQ TIDAC [facility]; Protocol Last Admin: 08/27/19 06:30 Dose: Not Given Levothyroxine Sodium (Synthroid -) 75 mcg PO ACBK [facility] Last Admin: 08/27/19 06:30 Dose: 75 mcg Polyethylene Glycol (Miralax (For Daily Use) -) 17 gm PO TID [facility] Last Admin: 08/27/19 06:30 Dose: 17 grams Quetiapine Fumarate 50 mg/ (Quetiapine Fumarate 25 mg) 75 mg PO BID [facility] Last Admin: 08/26/19 21:35 Dose: 75 mg Rivaroxaban (Xarelto) 15 mg PO DAILY@1800 [facility] Last Admin: 08/26/19 17:58 Dose: 15 mg Senna (Senna -) 2 tab PO HS PRN PRN Reason: CONSTIPATION - Objective Vital Signs: Vital Signs Temperature 97.3 F L 08/27/19 06:00 Pulse Rate 60 12/23/19 06:00 Respiratory Rate 20 08/27/19 06:00 Blood Pressure 82/50 L 08/27/19 06:00 O2 Sat by Pulse Oximetry (%) 96 08/27/19 00:26 HENT: Yes: Atraumatic Neck: Yes: Supple Cardiovascular: Yes: Regular Rate and Rhythm, S1, S2 Respiratory: Yes: CTA Bilaterally Gastrointestinal: Yes: Normal Bowel Sounds, Soft. No: Tenderness Edema: No Labs: CBC, BMP 08/26/19 07:48 08/27/19 06:30 INR, PTT INR 2.69 (0.83-1.09) H 08/24/19 21:27 Problem List - Problems (1) JENNYFER (acute kidney injury) Code(s): N17.9 - ACUTE KIDNEY FAILURE, UNSPECIFIED (2) Elevated troponin Code(s): R79.89 - OTHER SPECIFIED ABNORMAL FINDINGS OF BLOOD CHEMISTRY (3) Hyperkalemia Code(s): E87.5 - HYPERKALEMIA (4) Lactic acidosis Code(s): E87.2 - ACIDOSIS (5) Pneumonia Code(s): J18.9 - PNEUMONIA, UNSPECIFIED ORGANISM Qualifiers: Pneumonia type: due to unspecified organism Laterality: bilateral Lung location: lower lobe of lung Qualified Code(s): J18.9 - Pneumonia, unspecified organism (6) Sepsis Code(s): A41.9 - SEPSIS, UNSPECIFIED ORGANISM (7) Atrial fibrillation with controlled ventricular rate Code(s): I48.91 - UNSPECIFIED ATRIAL FIBRILLATION (8) CHF (congestive heart failure) Code(s): I50.9 - HEART FAILURE, UNSPECIFIED Qualifiers: Heart failure type: combined systolic and diastolic Heart failure chronicity: chronic Qualified Code(s): I50.42 - Chronic combined systolic ( congestive) and diastolic (congestive) heart failure (9) COPD (chronic obstructive pulmonary disease) Code(s): J44.9 - CHRONIC OBSTRUCTIVE PULMONARY DISEASE, UNSPECIFIED Qualifiers: COPD type: unspecified COPD Qualified Code(s): J44.9 - Chronic obstructive pulmonary disease, unspecified (10) Hypercholesterolemia Code(s): E78.00 - PURE HYPERCHOLESTEROLEMIA, UNSPECIFIED (11) Hypothyroid Code(s): E03.9 - HYPOTHYROIDISM, UNSPECIFIED Qualifiers: Hypothyroidism type: unspecified Qualified Code(s): E03.9 - Hypothyroidism , unspecified (12) IDDM (insulin dependent diabetes mellitus) Code(s): E11.9 - TYPE 2 DIABETES MELLITUS WITHOUT COMPLICATIONS; Z79.4 - FPC (CURRENT) USE OF INSULIN (13) Presence of permanent cardiac pacemaker Code(s): Z95.0 - PRESENCE OF CARDIAC PACEMAKER (14) Sleep apnea Code(s): G47.30 - SLEEP APNEA, UNSPECIFIED Qualifiers: Sleep apnea type: unspecified type Qualified Code(s): G47.30 - Sleep apnea , unspecified Assessment/Plan 1. MSSA sepsis/pneumonia 2. Acute on chronic Systolic/diastolic LV failure 3. CAD post PCI/stent, demand ischemia 4. Persistent atrial fibrillation [id number] 6 on A/C with DOAC/Xarelto 5. AV block post PPM 6. HTN 7. DM 8. Hypercholesterolemia 9. COPD 10. Shock liver resolving 11. Non-oliguric acute kidney injury with hyperkalemia, pre-renal azotemia referable to sepsis 12. Anemia 13. Hypothyroidism 14. Lactic acidosis 15. Toxic metabolic encephelopathy PLAN: 1. IVF and antibiotics coverage 2. Trend troponins 3. Coreg and Cozaar held pending hemodynamic stability and renal function improvement 4. Continue Xarelto 15 qd with caution and close monitoring of Hg, transfuse to maintain Hg equal or > 8.0 5. Diuresis and monitor I/Os, renal function and electrolytes 6. Echocardiography to assess LV/RV and valvular function 7. Continue Lipitor 10 mg QHS and Xarelto 15 mg QD Further plans are to follow Solo Peterson MD
[2019-08-27] MEDS: QUETIAPINE FUMARATE 50 MG, QUETIAPINE FUMARATE 25 MG PO SCH ×2 (10:33→22:55)
[2019-08-27] MEDS: FUROSEMIDE 40 MG/4 ML INJECTABLE VIAL IVPUSH SCH (10:35)
--- NOTE | 2019-08-27 15:12 | ECHO ---
Name: DAIN THORNTON Exam:Adult Echocardiogram Study Date: 08/27/2019 09:12 AM Age: 84 yrs Reason For Study: demand ischemia Height: 70 in Weight: 138 lb BSA: 1.8 m2 MMode/2D Measurements & Calculations IVSd: 1.4 cm EDV(Teich): 49.2 ml LVIDd: 3.5 cm ESV(Teich): 37.6 ml LVIDs: 3.1 cm LVPWd: 1.0 cm RV S Eldon: 5.6 cm/sec Doppler Measurements & Calculations MV E max eldon: 64.2 cm/sec Ao V2 max: 327.1 cm/sec MV A max eldon: 62.0 cm/sec Ao max P.9 mmHg MV E/A: 1.0 Ao V2 mean: 244.9 cm/sec MV dec time: 0.29 sec Ao mean P.9 mmHg Ao V2 VTI: 94.8 cm LV V1 max P.5 mmHg MR max eldon: 209.0 cm/sec LV V1 mean P.89 mmHg MR max P.5 mmHg LV V1 max: 60.2 cm/sec LV V1 mean: 44.9 cm/sec LV V1 VTI: 14.7 cm TR max eldon: 245.7 cm/sec Med Peak E' Eldon: 4.5 cm/sec TR max P.1 mmHg Med E/e': 14.3 Lat Peak E' Eldon: 3.4 cm/sec Lat E/e': 18.8 Procedure Incomplete study due to uncooperative patient Limited study. Left Ventricle The left ventricle is normal in size. Left ventricular systolic function is severely reduced. There i s severe global hypokinesis of the left ventricle. Right Ventricle The right ventricle is not well visualized. Atria The left atrial size is normal. Right atrial size is normal. Mitral Valve There is mild mitral valve thickening. There is mild mitral regurgitation. Tricuspid Valve The tricuspid valve is normal in structure and function. There is mild tricuspid regurgitation. Aortic Valve The aortic valve is normal in structure and function. No aortic regurgitation is present. Pulmonic Valve The pulmonic valve is not well visualized. Great Vessels The aortic root is normal size. Pericardium/Pleura There is no pericardial effusion. Interpretation Summary Incomplete study due to uncooperative patient Limited study The left ventricle is normal in size. Left ventricular systolic function is severely reduced. There is severe global hypokinesis of the left ventricle. The right ventricle is not well visualized. The left atrial size is normal. Right atrial size is normal. There is mild mitral valve thickening. There is mild mitral regurgitation. There is mild tricuspid regurgitation. There is no pericardial effusion. Solo Peterson MD 08/27/2019 03:11 PM
[2019-08-27] MEDS ORDERED: MAG HYDROX/AL HYDROX/SIMETH 30 ML UNIT-DOSE CUP PO PRN (15:19)
[2019-08-27] MEDS ORDERED: SENNOSIDES 8.6MG TABLET (FP) PO PRN (15:19)
[2019-08-27] MEDS ORDERED: SODIUM CHLORIDE 250 ML IV ONE (15:30)
--- NOTE | 2019-08-27 16:05 | PN ---
Progress Note, Physician History of Present Illness: Pt seen and examined at bedside. He is awake and appears comfortable. he denies shortness of breath. - Current Medication List Current Medications: Active Medications Al Hydroxide/Mg Hydroxide (Mylanta Oral Suspension -) 30 ml PO Q6H PRN PRN Reason: DYSPEPSIA Albuterol/Ipratropium (Duoneb -) 1 amp NEB RQID [facility] Atorvastatin Calcium (Lipitor -) 10 mg PO HS [facility] Docusate Sodium (Colace -) 100 mg PO TID [facility] Furosemide (Lasix Injection -) 40 mg IVPUSH DAILY [facility] Vancomycin HCl (Vancomycin (Pre-Docked)) 1,000 mg in 250 mls @ 200 mls/hr IVPB Q24H [facility]; Protocol Piperacillin Sod/Tazobactam (Sod 2.25 gm/ Dextrose) 50 mls @ 100 mls/hr IVPB Q8H-IV [facility]; Protocol Insulin Aspart (Novolog Vial Sliding Scale -) 1 vial SQ TIDAC [facility]; Protocol Levothyroxine Sodium (Synthroid -) 75 mcg PO ACBK [facility] Polyethylene Glycol (Miralax (For Daily Use) -) 17 gm PO TID [facility] Quetiapine Fumarate 50 mg/ (Quetiapine Fumarate 25 mg) 75 mg PO BID [facility] Rivaroxaban (Xarelto) 15 mg PO DAILY@1800 [facility] Senna (Senna -) 2 tab PO HS PRN PRN Reason: CONSTIPATION - Objective Vital Signs: Vital Signs Temperature 97.5 F L 08/27/19 13:46 Pulse Rate 109 H 08/27/19 13:46 Respiratory Rate 20 08/27/19 13:46 Blood Pressure 142/83 08/27/19 13:46 O2 Sat by Pulse Oximetry (%) 100 08/27/19 10:00 Constitutional: Yes: Calm Eyes: Yes: Conjunctiva Clear HENT: Yes: Atraumatic Neck: Yes: Supple Cardiovascular: Yes: S1, S2 Respiratory: Yes: Wheezes Gastrointestinal: Yes: Soft Musculoskeletal: Yes: Muscle Weakness Edema: No Neurological: Yes: Oriented Labs: CBC, BMP 08/26/19 07:48 08/27/19 06:30 INR, PTT INR 2.69 (0.83-1.09) H 08/24/19 21:27 Assessment/Plan Current Medications Generic Name Dose Route Start Last Admin Trade Name Freq PRN Reason Stop Dose Admin Al Hydroxide/Mg Hydroxide 30 ml 08/27/19 15:19 Mylanta Oral Suspension - PO Q6H PRN DYSPEPSIA Albuterol/Ipratropium 1 amp 08/27/19 16:00 Duoneb - NEB RQID [facility] Atorvastatin Calcium 10 mg 08/27/19 22:00 Lipitor - PO HS [facility] Docusate Sodium 100 mg 08/27/19 22:00 Colace - PO TID [facility] Furosemide 40 mg 08/28/19 10:00 Lasix Injection - IVPUSH DAILY [facility] Vancomycin HCl 1,000 mg in 250 mls @ 200 mls/hr 08/27/19 15:45 Vancomycin (Pre-Docked) IVPB Q24H [facility] Protocol Piperacillin Sod/Tazobactam 50 mls @ 100 mls/hr 08/27/19 18:00 Sod 2.25 gm/ Dextrose IVPB Q8H-IV [facility] Protocol Insulin Aspart 1 vial 08/27/19 16:30 Novolog Vial Sliding Scale - SQ TIDAC [facility] Protocol Levothyroxine Sodium 75 mcg 08/28/19 07:00 Synthroid - PO ACBK [facility] Polyethylene Glycol 17 gm 08/27/19 22:00 Miralax (For Daily Use) - PO TID [facility] Quetiapine Fumarate 50 mg/ 75 mg 08/27/19 22:00 Quetiapine Fumarate 25 mg PO BID [facility] Rivaroxaban 15 mg 08/27/19 18:00 Xarelto PO DAILY@1800 [facility] Senna 2 tab 08/27/19 15:19 Senna - PO HS PRN CONSTIPATION Impression JENNYFER hyperkalemia HTN HLD DM CAD s/p 7 stents afib on Xarelto systolic CHF CKD COPD on home o2 hypothyroidism schizophrenia Plan - renal function is improving - potassium improving - monitor lytes and check embosser - pt transferring to tele
[2019-08-27] MEDS: VANCOMYCIN 1 GRAM (PRE-DOCKED) 1,000 MG/250 ML BAG IVPB SCH (16:13)
[2019-08-27] MEDS: RIVAROXABAN 15 MG TABLET PO SCH (17:46)
[2019-08-27] MEDS ORDERED: PT OWN MED DRAWER 7, Y5N ONE (20:57)
[2019-08-27] MEDS: ATORVASTATIN CA 10 MG TABLET (FP) PO SCH (22:55)
[2019-08-28] MEDS ORDERED: PIPERACILLIN/TAZOBACTAM 2.25 GM VIAL IVPB ONE ×3 (03:22→17:33)
[2019-08-28] MEDS ORDERED: DEXTROSE 5%-WATER - 50 ML IVPB ONE ×3 (03:23→17:33)
[2019-08-28] MEDS: PIPERACILLIN/TAZOB 2.25 GM 2.25 GM in DEXTROSE 5%-WATER - 50 ML IVPB SCH ×3 (03:44→17:35)
[2019-08-28] MEDS: INSULIN SLIDING SCALE (NOVOLOG) 1 VIAL SQ SCH ×3 (06:59→17:39)
[2019-08-28] MEDS: DOCUSATE SODIUM 100 MG CAPSULE (FP) PO SCH ×3 (07:00→22:03)
[2019-08-28] MEDS: POLYETHYLENE GLYCOL 3350 119 GM BTL PO SCH ×3 (07:00→22:04)
[2019-08-28] MEDS: LEVOTHYROXINE NA 75 MCG TABLET (FP) PO SCH (07:00)
[2019-08-28] MEDS: ALBUTEROL SO4 2.5/IPRATROPIUM 0.5 INH SOL 3 ML VIAL.NEB. NEB SCH ×4 (07:32→21:01)
[2019-08-28 08:01] LABS: BASO % 1.2 % (0-2.0); EOS % 19.2 % (0-4.5); HEMATOCRIT 29.6 % (35.4-49); HEMOGLOBIN 9.6 GM/dL (11.7-16.9); LYMPH % 12.9 % (8-40); MCH 32.2 pg (25.7-33.7); MCHC 32.5 g/dl (32.0-35.9); MEAN CELL VOLUME 99.1 fl (80-96); MEAN PLT VOLUME 9.8 fl (7.5-11.1); MONO % 11.8 % (3.8-10.2); NEUT % 54.9 % (42.8-82.8); PLATELET COUNT 219 K/MM3 (134-434); RBC 2.99 M/mm3 (4.00-5.60); RDW 17.8 % (11.9-15.9)
[2019-08-28 08:30] LABS: ALBUMIN 2.9 g/dl (3.4-5.0); BILIRUBIN,TOTAL 1.1 mg/dL (0.2-1); BLOOD UREA NITROGEN 54.2 mg/dL (7-18); CALCIUM 7.9 mg/dL (8.5-10.1); CREATININE 1.4 mg/dL (0.55-1.3); POTASSIUM 4.2 mmol/L (3.5-5.1); TOT PROT 6.3 g/dl (6.4-8.2)
--- NOTE | 2019-08-28 09:49 | PN ---
Progress Note, Physician - Current Medication List Current Medications: Active Medications Al Hydroxide/Mg Hydroxide (Mylanta Oral Suspension -) 30 ml PO Q6H PRN PRN Reason: DYSPEPSIA Albuterol/Ipratropium (Duoneb -) 1 amp NEB RQID [facility] Last Admin: 08/28/19 07:32 Dose: 1 amp Atorvastatin Calcium (Lipitor -) 10 mg PO HS [facility] Last Admin: 08/27/19 22:55 Dose: 10 mg Docusate Sodium (Colace -) 100 mg PO TID [facility] Last Admin: 08/28/19 07:00 Dose: 100 mg Furosemide (Lasix Injection -) 40 mg IVPUSH DAILY [facility] Vancomycin HCl (Vancomycin (Pre-Docked)) 1,000 mg in 250 mls @ 166.667 mls/hr IVPB DAILY@1600 [facility]; Protocol Last Admin: 08/27/19 16:13 Dose: 166.667 mls/hr Piperacillin Sod/Tazobactam (Sod 2.25 gm/ Dextrose) 50 mls @ 100 mls/hr IVPB Q8H-IV [facility]; Protocol Last Admin: 08/28/19 03:44 Dose: 100 mls/hr Insulin Aspart (Novolog Vial Sliding Scale -) 1 vial SQ TIDAC [facility]; Protocol Last Admin: 08/28/19 06:59 Dose: Not Given Levothyroxine Sodium (Synthroid -) 75 mcg PO ACBK@0700 [facility] Last Admin: 08/28/19 07:00 Dose: 75 mcg Polyethylene Glycol (Miralax (For Daily Use) -) 17 gm PO TID [facility] Last Admin: 08/28/19 07:00 Dose: 17 gm Quetiapine Fumarate 50 mg/ (Quetiapine Fumarate 25 mg) 75 mg PO BID [facility] Last Admin: 08/27/19 22:55 Dose: 75 mg Rivaroxaban (Xarelto) 15 mg PO DAILY@1800 [facility] Last Admin: 08/27/19 17:46 Dose: 15 mg Senna (Senna -) 2 tab PO HS PRN PRN Reason: CONSTIPATION - Objective Vital Signs: Vital Signs Temperature 98.0 F 08/28/19 06:00 Pulse Rate 60 08/28/19 06:00 Respiratory Rate 20 08/28/19 09:00 Blood Pressure 95/50 L 08/28/19 06:00 O2 Sat by Pulse Oximetry (%) 96 12/24/19 09:00 Cardiovascular: Yes: S1, S2 Respiratory: Yes: Regular, CTA Bilaterally Gastrointestinal: Yes: Normal Bowel Sounds, Soft Labs: CBC, BMP 08/28/19 06:15 08/28/19 06:15 INR, PTT INR 2.69 (0.83-1.09) H 08/24/19 21:27 Assessment/Plan - Problems (1) JENNYFER (acute kidney injury) Assessment/Plan: -nephrology consult -monitor trend Problems reviewed: Yes Code(s): N17.9 - ACUTE KIDNEY FAILURE, UNSPECIFIED (2) Bacteremia Assessment/Plan: -ID consult -IV abx -febrile -Culture: MSSA -Contact isolation Problems reviewed: Yes Code(s): R78.81 - BACTEREMIA (3) Sepsis Assessment/Plan: -IV abx -ID consult -Cultures pending -no leukocytosis Problems reviewed: Yes Code(s): A41.9 - SEPSIS, UNSPECIFIED ORGANISM (4) Hyperkalemia Assessment/Plan: -Improved -nephrology consult -monitor trend Problems reviewed: Yes Code(s): E87.5 - HYPERKALEMIA (5) Lactic acidosis Assessment/Plan: -repeat LA in AM -IV abx -ID consult -Cultures pending -no leukocytosis Problems reviewed: Yes Code(s): E87.2 - ACIDOSIS (6) Elevated troponin Assessment/Plan: -Seen by cardiology -Trend--Rising--Per Cardio -pt denies any CP -Echo in AM -repeat trop in AM Problems reviewed: Yes Code(s): R79.89 - OTHER SPECIFIED ABNORMAL FINDINGS OF BLOOD CHEMISTRY
[2019-08-28] MEDS: QUETIAPINE FUMARATE 50 MG, QUETIAPINE FUMARATE 25 MG PO SCH ×2 (10:41→22:04)
[2019-08-28] MEDS: FUROSEMIDE 40 MG/4 ML INJECTABLE VIAL IVPUSH SCH (10:43)
--- NOTE | 2019-08-28 11:40 | PN ---
Progress Note, Physician History of Present Illness: Afebrile, more alert and interactive. - Current Medication List Current Medications: Active Medications Al Hydroxide/Mg Hydroxide (Mylanta Oral Suspension -) 30 ml PO Q6H PRN PRN Reason: DYSPEPSIA Albuterol/Ipratropium (Duoneb -) 1 amp NEB RQID [facility] Last Admin: 08/28/19 07:32 Dose: 1 amp Atorvastatin Calcium (Lipitor -) 10 mg PO HS [facility] Last Admin: 08/27/19 22:55 Dose: 10 mg Docusate Sodium (Colace -) 100 mg PO TID [facility] Last Admin: 08/28/19 07:00 Dose: 100 mg Furosemide (Lasix Injection -) 40 mg IVPUSH DAILY [facility] Last Admin: 08/28/19 10:43 Dose: 40 mg Vancomycin HCl (Vancomycin (Pre-Docked)) 1,000 mg in 250 mls @ 166.667 mls/hr IVPB DAILY@1600 [facility]; Protocol Last Admin: 08/27/19 16:13 Dose: 166.667 mls/hr Piperacillin Sod/Tazobactam (Sod 2.25 gm/ Dextrose) 50 mls @ 100 mls/hr IVPB Q8H-IV [facility]; Protocol Last Admin: 08/28/19 10:42 Dose: 100 mls/hr Insulin Aspart (Novolog Vial Sliding Scale -) 1 vial SQ TIDAC [facility]; Protocol Last Admin: 08/28/19 06:59 Dose: Not Given Levothyroxine Sodium (Synthroid -) 75 mcg PO ACBK@0700 [facility] Last Admin: 08/28/19 07:00 Dose: 75 mcg Polyethylene Glycol (Miralax (For Daily Use) -) 17 gm PO TID [facility] Last Admin: 08/28/19 07:00 Dose: 17 gm Quetiapine Fumarate 50 mg/ (Quetiapine Fumarate 25 mg) 75 mg PO BID [facility] Last Admin: 08/28/19 10:41 Dose: 75 mg Rivaroxaban (Xarelto) 15 mg PO DAILY@1800 [facility] Last Admin: 08/27/19 17:46 Dose: 15 mg Senna (Senna -) 2 tab PO HS PRN PRN Reason: CONSTIPATION - Objective Vital Signs: Vital Signs Temperature 98.0 F 08/28/19 06:00 Pulse Rate 60 08/28/19 06:00 Respiratory Rate 20 08/28/19 09:00 Blood Pressure 95/50 L 08/28/19 06:00 O2 Sat by Pulse Oximetry (%) 96 08/28/19 09:00 Constitutional: Yes: No Distress, Calm, Thin Neck: Yes: Supple Cardiovascular: Yes: Regular Rate and Rhythm Respiratory: Yes: Regular, Diminished, On Nasal O2 Gastrointestinal: Yes: Normal Bowel Sounds, Soft Edema: No Labs: CBC, BMP 08/28/19 06:15 08/28/19 06:15 INR, PTT INR 2.69 (0.83-1.09) H 08/24/19 21:27 - ....Imaging EKG: Report Reviewed (Tele: AV paced) Problem List - Problems (1) JENNYFER (acute kidney injury) Code(s): N17.9 - ACUTE KIDNEY FAILURE, UNSPECIFIED (2) Pneumonia Code(s): J18.9 - PNEUMONIA, UNSPECIFIED ORGANISM Qualifiers: Pneumonia type: due to unspecified organism Laterality: bilateral Lung location: lower lobe of lung Qualified Code(s): J18.9 - Pneumonia, unspecified organism (3) Anemia Code(s): D64.9 - ANEMIA, UNSPECIFIED (4) Atrial fibrillation with controlled ventricular rate Code(s): I48.91 - UNSPECIFIED ATRIAL FIBRILLATION (5) CHF (congestive heart failure) Code(s): I50.9 - HEART FAILURE, UNSPECIFIED Qualifiers: Heart failure type: combined systolic and diastolic Heart failure chronicity: chronic Qualified Code(s): I50.42 - Chronic combined systolic ( congestive) and diastolic (congestive) heart failure (6) Chronic anticoagulation Code(s): Z79.01 - [facility] [employer] (CURRENT) USE OF ANTICOAGULANTS (7) Hypercholesterolemia Code(s): E78.00 - PURE HYPERCHOLESTEROLEMIA, UNSPECIFIED (8) Hypothyroid Code(s): E03.9 - HYPOTHYROIDISM, UNSPECIFIED Qualifiers: Hypothyroidism type: unspecified Qualified Code(s): E03.9 - Hypothyroidism , unspecified (9) IDDM (insulin dependent diabetes mellitus) Code(s): E11.9 - TYPE 2 DIABETES MELLITUS WITHOUT COMPLICATIONS; Z79.4 - NURSING HOME (CURRENT) USE OF INSULIN (10) Presence of permanent cardiac pacemaker Code(s): Z95.0 - PRESENCE OF CARDIAC PACEMAKER (11) Sleep apnea Code(s): G47.30 - SLEEP APNEA, UNSPECIFIED Qualifiers: Sleep apnea type: unspecified type Qualified Code(s): G47.30 - Sleep apnea , unspecified Assessment/Plan 08/27/2019 Echo: TDS Normal LV size with severe decreased LV fxn, mild MR, TR 08/24 CT abdomen/pelvis without contrast showed "Nodular contour of the liver compatible with cirrhosis. There is large quantity of colonic gas as well as a large stool burden most compatible with constipation. There is thickening of the low rectum; this may be related to underdistention although neoplasm cannot be excluded. Recommend proctoscopy. There is asymmetric wall thickening of the urinary bladder with question of a nodule anteriorly which measures approximately 8 mm. Alternatively this may represent an indentation from an enlarged prostate There is evidence of prior TURP. 07/12/2018 Echo: Normal LV size with mod decreased LV fxn, RV paced, mild ROGER, mild-mod TR, mild MR 1. MSSA sepsis/pneumonia 2. 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 CAD post PCI/stent, demand ischemia referable to #1 3. Persistent atrial fibrillation [id number] 6 on A/C with DOAC's/Xarelto 4. AV block post PPM 5. HTN 6. DM 7. Hypercholesterolemia 8. COPD on home O2 9. Shock liver resolving 10. Non-oliguric acute kidney injury with hyperkalemia improving, pre-renal azotemia referable to sepsis 11. Anemia 12. Hypothyroidism 13. Lactic acidosis 14. Toxic metabolic encephelopathy 14. Schizophrenia PLAN: 1. IVF, narrow abx per C&S, trend trops, LFTs and lactate to document peak 2. Resume Coreg 3.125 bid and Cozaar 25 qd pending hemodynamic stability and renal fxn, hyperkalemia recovery 3. Continue Xarelto 15 qd with caution and close monitoring of Hg, transfuse to maintain Hg equal or > 8.0 4. IV diuresis as needed to keep even 6. Continue Lipitor 10 qd, Xarelto 15 qd
[2019-08-28] MEDS: CARVEDILOL 3.125 MG TABLET (FP) PO SCH ×2 (12:38→22:04)
[2019-08-28 13:27] VITALS: BMI 20.7
--- NOTE | 2019-08-28 15:01 | PN ---
Progress Note, Physician History of Present Illness: Pt seen and examined at bedside. He is awake and appears comfortable. He denies shortness of breath. - Current Medication List Current Medications: Active Medications Al Hydroxide/Mg Hydroxide (Mylanta Oral Suspension -) 30 ml PO Q6H PRN PRN Reason: DYSPEPSIA Albuterol/Ipratropium (Duoneb -) 1 amp NEB RQID [facility] Last Admin: 08/28/19 11:54 Dose: 1 amp Atorvastatin Calcium (Lipitor -) 10 mg PO HS [facility] Last Admin: 08/27/19 22:55 Dose: 10 mg Carvedilol (Coreg -) 3.125 mg PO BID [facility] Last Admin: 08/28/19 12:38 Dose: 3.125 mg Docusate Sodium (Colace -) 100 mg PO TID [facility] Last Admin: 08/28/19 07:00 Dose: 100 mg Furosemide (Lasix Injection -) 40 mg IVPUSH DAILY [facility] Last Admin: 08/28/19 10:43 Dose: 40 mg Vancomycin HCl (Vancomycin (Pre-Docked)) 1,000 mg in 250 mls @ 166.667 mls/hr IVPB DAILY@1600 [facility]; Protocol Last Admin: 08/27/19 16:13 Dose: 166.667 mls/hr Piperacillin Sod/Tazobactam (Sod 2.25 gm/ Dextrose) 50 mls @ 100 mls/hr IVPB Q8H-IV [facility]; Protocol Last Admin: 08/28/19 10:42 Dose: 100 mls/hr Insulin Aspart (Novolog Vial Sliding Scale -) 1 vial SQ TIDAC [facility]; Protocol Last Admin: 08/28/19 12:36 Dose: 2 units Levothyroxine Sodium (Synthroid -) 75 mcg PO ACBK@0700 [facility] Last Admin: 08/28/19 07:00 Dose: 75 mcg Polyethylene Glycol (Miralax (For Daily Use) -) 17 gm PO TID [facility] Last Admin: 08/28/19 07:00 Dose: 17 gm Quetiapine Fumarate 50 mg/ (Quetiapine Fumarate 25 mg) 75 mg PO BID [facility] Last Admin: 08/28/19 10:41 Dose: 75 mg Rivaroxaban (Xarelto) 15 mg PO DAILY@1800 [facility] Last Admin: 08/27/19 17:46 Dose: 15 mg Senna (Senna -) 2 tab PO HS PRN PRN Reason: CONSTIPATION - Objective Vital Signs: Vital Signs Temperature 99.2 F 08/28/19 14:00 Pulse Rate 60 08/28/19 14:00 Respiratory Rate 20 08/28/19 14:00 Blood Pressure 94/58 L 08/28/19 14:00 O2 Sat by Pulse Oximetry (%) 96 08/28/19 09:00 Constitutional: Yes: Calm Eyes: Yes: Conjunctiva Clear HENT: Yes: Atraumatic Neck: Yes: Supple Cardiovascular: Yes: S1, S2 Respiratory: Yes: CTA Bilaterally Gastrointestinal: Yes: Soft Genitourinary: Yes: WNL Musculoskeletal: Yes: WNL Edema: No Neurological: Yes: Confusion Psychiatric: Yes: Oriented Labs: CBC, BMP 08/28/19 06:15 08/28/19 06:15 INR, PTT INR 2.69 (0.83-1.09) H 08/24/19 21:27 Problem List - Problems (1) JENNYFER (acute kidney injury) Code(s): N17.9 - ACUTE KIDNEY FAILURE, UNSPECIFIED Assessment/Plan Current Medications Generic Name Dose Route Start Last Admin Trade Name Freq PRN Reason Stop Dose Admin Al Hydroxide/Mg Hydroxide 30 ml 08/27/19 15:19 Mylanta Oral Suspension - PO Q6H PRN DYSPEPSIA Albuterol/Ipratropium 1 amp 08/27/19 16:00 08/28/19 11:54 Duoneb - NEB 1 amp RQID [facility] Administration Atorvastatin Calcium 10 mg 08/27/19 22:00 08/27/19 22:55 Lipitor - PO 10 mg HS [facility] Administration Carvedilol 3.125 mg 08/28/19 12:15 08/28/19 12:38 Coreg - PO 3.125 mg BID [facility] Administration Docusate Sodium 100 mg 08/27/19 22:00 08/28/19 07:00 Colace - PO 100 mg TID [facility] Administration Furosemide 40 mg 08/28/19 10:00 08/28/19 10:43 Lasix Injection - IVPUSH 40 mg DAILY [facility] Administration Vancomycin HCl 1,000 mg in 250 mls @ 166.667 mls/hr 08/28/19 16:15 08/27/19 16:13 Vancomycin (Pre-Docked) IVPB 166.667 mls/hr DAILY@1600 [facility] Administration Protocol Piperacillin Sod/Tazobactam 50 mls @ 100 mls/hr 08/27/19 18:00 08/28/19 10:42 Sod 2.25 gm/ Dextrose IVPB 100 mls/hr Q8H-IV [facility] Administration Protocol Insulin Aspart 1 vial 08/27/19 16:30 08/28/19 12:36 Novolog Vial Sliding Scale - SQ 2 units TIDAC [facility] Administration Protocol Levothyroxine Sodium 75 mcg 08/28/19 07:00 08/28/19 07:00 Synthroid - PO 75 mcg ACBK@0700 [facility] Administration Polyethylene Glycol 17 gm 08/27/19 22:00 08/28/19 07:00 Miralax (For Daily Use) - PO 17 gm TID [facility] Administration Quetiapine Fumarate 50 mg/ 75 mg 08/27/19 22:00 08/28/19 10:41 Quetiapine Fumarate 25 mg PO 75 mg BID [facility] Administration Rivaroxaban 15 mg 08/27/19 18:00 08/27/19 17:46 Xarelto PO 15 mg DAILY@1800 [facility] Administration Senna 2 tab 08/27/19 15:19 Senna - PO HS PRN CONSTIPATION Impression JENNYFER hyperkalemia HTN HLD DM CAD s/p 7 stents afib on Xarelto systolic CHF CKD COPD on home o2 hypothyroidism schizophrenia Plan - creatinine continues to improve - repeat labs in am - monitor volume status - cardio input appreciated - potassium stable - 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
[2019-08-28] MEDS: VANCOMYCIN 1 GRAM (PRE-DOCKED) 1,000 MG/250 ML BAG IVPB SCH (17:35)
[2019-08-28] MEDS: RIVAROXABAN 15 MG TABLET PO SCH (17:36)
[2019-08-28] MEDS: ATORVASTATIN CA 10 MG TABLET (FP) PO SCH (22:04)
[2019-08-29] MEDS ORDERED: PIPERACILLIN/TAZOBACTAM 2.25 GM VIAL IVPB ONE ×3 (03:40→17:04)
[2019-08-29] MEDS ORDERED: DEXTROSE 5%-WATER - 50 ML IVPB ONE ×3 (03:40→17:04)
[2019-08-29] MEDS: PIPERACILLIN/TAZOB 2.25 GM 2.25 GM in DEXTROSE 5%-WATER - 50 ML IVPB SCH ×3 (03:43→17:22)
[2019-08-29] MEDS: DOCUSATE SODIUM 100 MG CAPSULE (FP) PO SCH ×3 (05:43→21:28)
[2019-08-29] MEDS: POLYETHYLENE GLYCOL 3350 119 GM BTL PO SCH ×3 (05:43→21:28)
[2019-08-29] MEDS: INSULIN SLIDING SCALE (NOVOLOG) 1 VIAL SQ SCH ×3 (06:00→17:23)
[2019-08-29] MEDS: LEVOTHYROXINE NA 75 MCG TABLET (FP) PO SCH (06:01)
[2019-08-29 08:16] LABS: ALBUMIN 2.8 g/dl (3.4-5.0); BILIRUBIN,TOTAL 1.4 mg/dL (0.2-1); BLOOD UREA NITROGEN 42.5 mg/dL (7-18); CALCIUM 8.3 mg/dL (8.5-10.1); CREATININE 1.4 mg/dL (0.55-1.3); POTASSIUM 4.3 mmol/L (3.5-5.1); TOT PROT 6.3 g/dl (6.4-8.2)
[2019-08-29] MEDS: ALBUTEROL SO4 2.5/IPRATROPIUM 0.5 INH SOL 3 ML VIAL.NEB. NEB SCH ×4 (08:50→20:58)
--- NOTE | 2019-08-29 09:40 | PN ---
Progress Note, Physician Chief Complaint: Sepsis Fever History of Present Illness: NAD much more alert but confused - Current Medication List Current Medications: Active Medications Al Hydroxide/Mg Hydroxide (Mylanta Oral Suspension -) 30 ml PO Q6H PRN PRN Reason: DYSPEPSIA Albuterol/Ipratropium (Duoneb -) 1 amp NEB RQID [facility] Last Admin: 08/29/19 08:50 Dose: 1 amp Atorvastatin Calcium (Lipitor -) 10 mg PO HS [facility] Last Admin: 08/28/19 22:04 Dose: 10 mg Carvedilol (Coreg -) 3.125 mg PO BID [facility] Last Admin: 08/28/19 22:04 Dose: 3.125 mg Docusate Sodium (Colace -) 100 mg PO TID [facility] Last Admin: 08/29/19 05:43 Dose: 100 mg Furosemide (Lasix Injection -) 40 mg IVPUSH DAILY [facility] Last Admin: 08/28/19 10:43 Dose: 40 mg Vancomycin HCl (Vancomycin (Pre-Docked)) 1,000 mg in 250 mls @ 166.667 mls/hr IVPB DAILY@1600 [facility]; Protocol Last Admin: 08/28/19 17:35 Dose: 166.667 mls/hr Piperacillin Sod/Tazobactam (Sod 2.25 gm/ Dextrose) 50 mls @ 100 mls/hr IVPB Q8H-IV [facility]; Protocol Last Admin: 08/29/19 03:43 Dose: 100 mls/hr Insulin Aspart (Novolog Vial Sliding Scale -) 1 vial SQ TIDAC [facility]; Protocol Last Admin: 08/29/19 06:00 Dose: 2 units Levothyroxine Sodium (Synthroid -) 75 mcg PO ACBK@0700 [facility] Last Admin: 08/29/19 06:01 Dose: 75 mcg Polyethylene Glycol (Miralax (For Daily Use) -) 17 gm PO TID [facility] Last Admin: 08/29/19 05:43 Dose: 17 gm Quetiapine Fumarate 50 mg/ (Quetiapine Fumarate 25 mg) 75 mg PO BID [facility] Last Admin: 08/28/19 22:04 Dose: 75 mg Rivaroxaban (Xarelto) 15 mg PO DAILY@1800 [facility] Last Admin: 08/28/19 17:36 Dose: 15 mg Senna (Senna -) 2 tab PO HS PRN PRN Reason: CONSTIPATION - Objective Vital Signs: Vital Signs Temperature 98.4 F 08/29/19 06:03 Pulse Rate 72 08/29/19 06:03 Respiratory Rate 20 08/29/19 08:50 Blood Pressure 90/56 L 08/29/19 06:03 O2 Sat by Pulse Oximetry (%) 96 08/29/19 08:50 Constitutional: Yes: No Distress, Calm, Thin Cardiovascular: Yes: Regular Rate and Rhythm Respiratory: Yes: Regular Gastrointestinal: Yes: WNL Genitourinary: Yes: Incontinence Musculoskeletal: Yes: Muscle Weakness Extremities: Yes: WNL Edema: No Peripheral Pulses WNL: Yes Neurological: Yes: Alert, Pre-Existing Deficit Psychiatric: Yes: Alert Labs: CBC, BMP 08/28/19 06:15 08/29/19 06:00 INR, PTT INR 2.69 (0.83-1.09) H 08/24/19 21:27 Problem List - Problems (1) JENNYFER (acute kidney injury) Assessment/Plan: -nephrology consult -monitor trend Problems reviewed: Yes Code(s): N17.9 - ACUTE KIDNEY FAILURE, UNSPECIFIED (2) Bacteremia Assessment/Plan: -ID consult -IV abx -afebrile -Cultures: Microbiology 08/24/19 22:00 Blood - Peripheral Venous Blood Culture - Preliminary NO GROWTH OBTAINED AFTER 96 HOURS, INCUBATION TO CONTINUE FOR 1 DAYS. 08/27/19 11:20 Nares - Mrsa Screen - Left MRSA Screen - Final S Aureus 08/27/19 11:20 Nares - Mrsa Screen - Right MRSA Screen - Final NO MRSA ISOLATED 08/24/19 22:00 Blood - Peripheral Venous Blood Culture - Final Staphylococcus Aureus 08/25/19 01:45 Urine - Urine Clean Catch Urine Culture - Final NO GROWTH OBTAINED 08/25/19 07:55 Urine - Urine Arroyo Legionella Antigen - Final 08/25/19 07:55 Urine - Urine Arroyo Streptococcus pneumoniae Antigen (M - Final -Contact isolation Problems reviewed: Yes Code(s): R78.81 - BACTEREMIA (3) Sepsis Assessment/Plan: -IV abx -ID consult -Cultures: Microbiology 08/24/19 22:00 Blood - Peripheral Venous Blood Culture - Preliminary NO GROWTH OBTAINED AFTER 96 HOURS, INCUBATION TO CONTINUE FOR 1 DAYS. 08/27/19 11:20 Nares - Mrsa Screen - Left MRSA Screen - Final S Aureus 08/27/19 11:20 Nares - Mrsa Screen - Right MRSA Screen - Final NO MRSA ISOLATED 08/24/19 22:00 Blood - Peripheral Venous Blood Culture - Final Staphylococcus Aureus 08/25/19 01:45 Urine - Urine Clean Catch Urine Culture - Final NO GROWTH OBTAINED 08/25/19 07:55 Urine - Urine Arroyo Legionella Antigen - Final 08/25/19 07:55 Urine - Urine Arroyo Streptococcus pneumoniae Antigen (M - Final -no leukocytosis -Afebrile Problems reviewed: Yes Code(s): A41.9 - SEPSIS, UNSPECIFIED ORGANISM (4) Hyperkalemia Assessment/Plan: -Resolved -nephrology consult -monitor trend Problems reviewed: Yes Code(s): E87.5 - HYPERKALEMIA (5) Lactic acidosis Assessment/Plan: -Resolved -IV abx -ID consult -Cultures as above -no leukocytosis -Afebrile Problems reviewed: Yes Code(s): E87.2 - ACIDOSIS (6) Elevated troponin Assessment/Plan: -Seen by cardiology -likely 2/2 to sepsis -pt denies any CP -08/27/2019 Echo: TDS Normal LV size with severe decreased LV fxn, mild MR, TR Problems reviewed: Yes Code(s): R79.89 - OTHER SPECIFIED ABNORMAL FINDINGS OF BLOOD CHEMISTRY Assessment/Plan see problem list
[2019-08-29] MEDS: CARVEDILOL 3.125 MG TABLET (FP) PO SCH ×2 (10:37→21:28)
[2019-08-29] MEDS: FUROSEMIDE 40 MG/4 ML INJECTABLE VIAL IVPUSH SCH (10:37)
[2019-08-29] MEDS: QUETIAPINE FUMARATE 50 MG, QUETIAPINE FUMARATE 25 MG PO SCH ×2 (10:38→21:27)
--- NOTE | 2019-08-29 14:14 | PN ---
Progress Note, Physician Chief Complaint: Pt lying in bed; alert (asks about Drs. Blake and Kristen); denies chest pain or dyspnea; c/o "taking care of the mucus and phlegm". History of Present Illness: Patient is known to our service (previously seen in the office, but now sees Dr. Ferny Buck in [place]). Patient is an 84 year old male with underlying history of CAD s/p PCI/stent, angina pectoris, systolic/diastolic LV failure with chronic class I NYHA classification LV failure, AV block post PPM, persistent AF [id number] score of 6 on DOAC (Xarelto), HTN, DM, hypercholesterolemia, COPD on home O2 and OSAS , Chronic venous insufficiency, BPH, Anemia, Hypothyroidism, Alzheimers (normal baseline a&Ox3), Schizophrenia and Dysphagia admitted from [facility] for hypoglycemia. EMS at bedside reported they were told patient began becoming hypoglycemic in the afternoon, the lowest reading was about 41, for which the long term gave glucose. The long term reported to them that about an hour ago patient started shaking, altered sensorium, which made them concerned for sepsis, prompting them to call EMS. EMS reported when they arrive to the scene the patients glucose was 149 after receiving the oral glucose. Patients normal mental baseline is to be alert and oriented to person place time and situation. Patient is wheelchair and bed bound at baseline. In ED pt was found to have rectal temp 102.2F, respiratory rate of 22, and suspected PNA on CT. Pt not cooperative with exam - alert but oriented to person only. - Current Medication List Current Medications: Active Medications Al Hydroxide/Mg Hydroxide (Mylanta Oral Suspension -) 30 ml PO Q6H PRN PRN Reason: DYSPEPSIA Albuterol/Ipratropium (Duoneb -) 1 amp NEB RQID [facility] Last Admin: 08/29/19 12:35 Dose: 1 amp Atorvastatin Calcium (Lipitor -) 10 mg PO HS [facility] Last Admin: 08/28/19 22:04 Dose: 10 mg Carvedilol (Coreg -) 3.125 mg PO BID [facility] Last Admin: 08/29/19 10:37 Dose: 3.125 mg Docusate Sodium (Colace -) 100 mg PO TID [facility] Last Admin: 08/29/19 05:43 Dose: 100 mg Furosemide (Lasix Injection -) 40 mg IVPUSH DAILY [facility] Last Admin: 08/29/19 10:37 Dose: 40 mg Vancomycin HCl (Vancomycin (Pre-Docked)) 1,000 mg in 250 mls @ 166.667 mls/hr IVPB DAILY@1600 [facility]; Protocol Last Admin: 08/28/19 17:35 Dose: 166.667 mls/hr Piperacillin Sod/Tazobactam (Sod 2.25 gm/ Dextrose) 50 mls @ 100 mls/hr IVPB Q8H-IV [facility]; Protocol Last Admin: 08/29/19 10:38 Dose: 100 mls/hr Insulin Aspart (Novolog Vial Sliding Scale -) 1 vial SQ TIDAC [facility]; Protocol Last Admin: 08/29/19 12:32 Dose: 2 units Levothyroxine Sodium (Synthroid -) 75 mcg PO ACBK@0700 [facility] Last Admin: 08/29/19 06:01 Dose: 75 mcg Polyethylene Glycol (Miralax (For Daily Use) -) 17 gm PO TID [facility] Last Admin: 08/29/19 05:43 Dose: 17 gm Quetiapine Fumarate 50 mg/ (Quetiapine Fumarate 25 mg) 75 mg PO BID [facility] Last Admin: 08/29/19 10:38 Dose: 75 mg Rivaroxaban (Xarelto) 15 mg PO DAILY@1800 [facility] Last Admin: 08/28/19 17:36 Dose: 15 mg Senna (Senna -) 2 tab PO HS PRN PRN Reason: CONSTIPATION - Objective Vital Signs: Vital Signs Temperature 97.6 F 08/29/19 13:59 Pulse Rate 64 08/29/19 13:59 Respiratory Rate 20 08/29/19 13:59 Blood Pressure 106/50 L 08/29/19 13:59 O2 Sat by Pulse Oximetry (%) 96 08/29/19 08:50 Constitutional: Yes: Calm, Thin Eyes: Yes: WNL HENT: Yes: WNL Neck: Yes: WNL Cardiovascular: Yes: Pulse Irregular Respiratory: Yes: Regular Gastrointestinal: Yes: Soft ...Rectal Exam: Yes: Deferred Breast(s): Yes: WNL Musculoskeletal: Yes: Muscle Weakness Extremities: Yes: Cool Edema: No Peripheral Pulses WNL: No Peripheral Pulses: Left Doralis Pedis: 1+, Right Dorsalis Pedis: 1+ Integumentary: Yes: Venous Stasis Changes Psychiatric: Yes: Alert, Other Labs: CBC, BMP 08/28/19 06:15 08/29/19 06:00 INR, PTT INR 2.69 (0.83-1.09) H 08/24/19 21:27 - ....Imaging Other: Image Reviewed (telemetry: AV paced rhythm) Problem List - Problems (1) Elevated troponin Assessment/Plan: TNI 0.89-->4.3; low CKMB relative index (demand ischemia, with contributing factors including CAD, PNA, systolic/diastolic CHF, AF with RVR) EKG: atrial sensed, V paced rhythm. Code(s): R79.89 - OTHER SPECIFIED ABNORMAL FINDINGS OF BLOOD CHEMISTRY (2) Hyperkalemia Code(s): E87.5 - HYPERKALEMIA (3) Acute on chronic systolic CHF (congestive heart failure), NYHA class 1 Assessment/Plan: On carvedilol; can restart losartan (improving renal function; follow BP carefully, though "low-normal" likely acceptable if clinically stable, given severe LV dysfunction). Code(s): I50.23 - ACUTE ON CHRONIC SYSTOLIC (CONGESTIVE) HEART FAILURE (4) History of permanent cardiac pacemaker placement Code(s): Z95.0 - PRESENCE OF CARDIAC PACEMAKER (5) Shock liver Code(s): K72.00 - ACUTE AND SUBACUTE HEPATIC FAILURE WITHOUT COMA
--- NOTE | 2019-08-29 14:42 | PN ---
Progress Note, Physician History of Present Illness: Pt seen and examined at bedside. He is awake. He says he had shortness of breath last night. - Current Medication List Current Medications: Active Medications Al Hydroxide/Mg Hydroxide (Mylanta Oral Suspension -) 30 ml PO Q6H PRN PRN Reason: DYSPEPSIA Albuterol/Ipratropium (Duoneb -) 1 amp NEB RQID [facility] Last Admin: 08/29/19 12:35 Dose: 1 amp Atorvastatin Calcium (Lipitor -) 10 mg PO HS [facility] Last Admin: 08/28/19 22:04 Dose: 10 mg Carvedilol (Coreg -) 3.125 mg PO BID [facility] Last Admin: 08/29/19 10:37 Dose: 3.125 mg Docusate Sodium (Colace -) 100 mg PO TID [facility] Last Admin: 08/29/19 05:43 Dose: 100 mg Furosemide (Lasix Injection -) 40 mg IVPUSH DAILY [facility] Last Admin: 08/29/19 10:37 Dose: 40 mg Vancomycin HCl (Vancomycin (Pre-Docked)) 1,000 mg in 250 mls @ 166.667 mls/hr IVPB DAILY@1600 [facility]; Protocol Last Admin: 08/28/19 17:35 Dose: 166.667 mls/hr Piperacillin Sod/Tazobactam (Sod 2.25 gm/ Dextrose) 50 mls @ 100 mls/hr IVPB Q8H-IV [facility]; Protocol Last Admin: 08/29/19 10:38 Dose: 100 mls/hr Insulin Aspart (Novolog Vial Sliding Scale -) 1 vial SQ TIDAC [facility]; Protocol Last Admin: 08/29/19 12:32 Dose: 2 units Levothyroxine Sodium (Synthroid -) 75 mcg PO ACBK@0700 [facility] Last Admin: 08/29/19 06:01 Dose: 75 mcg Polyethylene Glycol (Miralax (For Daily Use) -) 17 gm PO TID [facility] Last Admin: 08/29/19 05:43 Dose: 17 gm Quetiapine Fumarate 50 mg/ (Quetiapine Fumarate 25 mg) 75 mg PO BID [facility] Last Admin: 08/29/19 10:38 Dose: 75 mg Rivaroxaban (Xarelto) 15 mg PO DAILY@1800 [facility] Last Admin: 08/28/19 17:36 Dose: 15 mg Senna (Senna -) 2 tab PO HS PRN PRN Reason: CONSTIPATION - Objective Vital Signs: Vital Signs Temperature 97.6 F 08/29/19 13:59 Pulse Rate 64 08/29/19 13:59 Respiratory Rate 20 08/29/19 13:59 Blood Pressure 106/50 L 08/29/19 13:59 O2 Sat by Pulse Oximetry (%) 96 08/29/19 08:50 Constitutional: Yes: Calm Eyes: Yes: Conjunctiva Clear HENT: Yes: Atraumatic Cardiovascular: Yes: S1, S2 Respiratory: Yes: CTA Bilaterally Gastrointestinal: Yes: Soft Genitourinary: Yes: WNL Musculoskeletal: Yes: WNL Edema: No Neurological: Yes: Confusion Labs: CBC, BMP 08/28/19 06:15 08/29/19 06:00 INR, PTT INR 2.69 (0.83-1.09) H 08/24/19 21:27 Problem List - Problems (1) JENNYFER (acute kidney injury) Code(s): N17.9 - ACUTE KIDNEY FAILURE, UNSPECIFIED Assessment/Plan Current Medications Generic Name Dose Route Start Last Admin Trade Name Freq PRN Reason Stop Dose Admin Al Hydroxide/Mg Hydroxide 30 ml 08/27/19 15:19 Mylanta Oral Suspension - PO Q6H PRN DYSPEPSIA Albuterol/Ipratropium 1 amp 08/27/19 16:00 08/29/19 12:35 Duoneb - NEB 1 amp RQID [facility] Administration Atorvastatin Calcium 10 mg 08/27/19 22:00 08/28/19 22:04 Lipitor - PO 10 mg HS [facility] Administration Carvedilol 3.125 mg 08/28/19 12:15 08/29/19 10:37 Coreg - PO 3.125 mg BID [facility] Administration Docusate Sodium 100 mg 08/27/19 22:00 08/29/19 05:43 Colace - PO 100 mg TID [facility] Administration Furosemide 40 mg 08/28/19 10:00 08/29/19 10:37 Lasix Injection - IVPUSH 40 mg DAILY [facility] Administration Vancomycin HCl 1,000 mg in 250 mls @ 166.667 mls/hr 08/28/19 16:15 08/28/19 17:35 Vancomycin (Pre-Docked) IVPB 166.667 mls/hr DAILY@1600 [facility] Administration Protocol Piperacillin Sod/Tazobactam 50 mls @ 100 mls/hr 08/27/19 18:00 08/29/19 10:38 Sod 2.25 gm/ Dextrose IVPB 100 mls/hr Q8H-IV [facility] Administration Protocol Insulin Aspart 1 vial 08/27/19 16:30 08/29/19 12:32 Novolog Vial Sliding Scale - SQ 2 units TIDAC [facility] Administration Protocol Levothyroxine Sodium 75 mcg 08/28/19 07:00 08/29/19 06:01 Synthroid - PO 75 mcg ACBK@0700 [facility] Administration Polyethylene Glycol 17 gm 08/27/19 22:00 08/29/19 05:43 Miralax (For Daily Use) - PO 17 gm TID [facility] Administration Quetiapine Fumarate 50 mg/ 75 mg 08/27/19 22:00 08/29/19 10:38 Quetiapine Fumarate 25 mg PO 75 mg BID [facility] Administration Rivaroxaban 15 mg 08/27/19 18:00 08/28/19 17:36 Xarelto PO 15 mg DAILY@1800 [facility] Administration Senna 2 tab 08/27/19 15:19 Senna - PO HS PRN CONSTIPATION Impression JENNYFER hyperkalemia HTN HLD DM CAD s/p 7 stents afib on Xarelto systolic CHF CKD COPD on home o2 hypothyroidism schizophrenia Plan - cont lasix - monitor renal function - repeat labs in am - monitor volume status - potassium stable
[2019-08-29] MEDS: VANCOMYCIN 1 GRAM (PRE-DOCKED) 1,000 MG/250 ML BAG IVPB SCH (17:21)
[2019-08-29] MEDS: RIVAROXABAN 15 MG TABLET PO SCH (17:21)
[2019-08-29] MEDS: ATORVASTATIN CA 10 MG TABLET (FP) PO SCH (21:28)
[2019-08-30] MEDS ORDERED: PIPERACILLIN/TAZOBACTAM 2.25 GM VIAL IVPB ONE ×3 (00:53→15:51)
[2019-08-30] MEDS ORDERED: DEXTROSE 5%-WATER - 50 ML IVPB ONE ×3 (00:53→15:54)
[2019-08-30] MEDS: PIPERACILLIN/TAZOB 2.25 GM 2.25 GM in DEXTROSE 5%-WATER - 50 ML IVPB SCH ×3 (01:19→17:12)
[2019-08-30] MEDS: POLYETHYLENE GLYCOL 3350 119 GM BTL PO SCH ×3 (06:14→21:20)
[2019-08-30] MEDS: DOCUSATE SODIUM 100 MG CAPSULE (FP) PO SCH ×4 (06:14→21:19)
[2019-08-30] MEDS: LEVOTHYROXINE NA 75 MCG TABLET (FP) PO SCH (06:18)
[2019-08-30] MEDS: INSULIN SLIDING SCALE (NOVOLOG) 1 VIAL SQ SCH ×3 (06:19→18:16)
[2019-08-30] MEDS: ALBUTEROL SO4 2.5/IPRATROPIUM 0.5 INH SOL 3 ML VIAL.NEB. NEB SCH ×4 (09:14→20:50)
[2019-08-30] MEDS ORDERED: PT OWN MED DRAWER 7, Y5N ONE (09:53)
--- NOTE | 2019-08-30 09:57 | PN ---
Progress Note, Physician Chief Complaint: ASLEEP 02 AND NEB MASK TREATMENT NO ACUTE CHANGES THIS MORNING WEAK AND CONFUSED - Current Medication List Current Medications: Active Medications Al Hydroxide/Mg Hydroxide (Mylanta Oral Suspension -) 30 ml PO Q6H PRN PRN Reason: DYSPEPSIA Albuterol/Ipratropium (Duoneb -) 1 amp NEB RQID [facility] Last Admin: 08/30/19 09:14 Dose: 1 amp Atorvastatin Calcium (Lipitor -) 10 mg PO HS [facility] Last Admin: 08/29/19 21:28 Dose: 10 mg Carvedilol (Coreg -) 3.125 mg PO BID [facility] Last Admin: 08/29/19 21:28 Dose: 3.125 mg Docusate Sodium (Colace -) 100 mg PO TID [facility] Last Admin: 08/30/19 06:14 Dose: 100 mg Furosemide (Lasix Injection -) 40 mg IVPUSH DAILY [facility] Last Admin: 08/29/19 10:37 Dose: 40 mg Vancomycin HCl (Vancomycin (Pre-Docked)) 1,000 mg in 250 mls @ 166.667 mls/hr IVPB DAILY@1600 [facility]; Protocol Last Admin: 08/29/19 17:21 Dose: 166.667 mls/hr Piperacillin Sod/Tazobactam (Sod 2.25 gm/ Dextrose) 50 mls @ 100 mls/hr IVPB Q8H-IV [facility]; Protocol Last Admin: 08/30/19 01:19 Dose: 100 mls/hr Insulin Aspart (Novolog Vial Sliding Scale -) 1 vial SQ TIDAC [facility]; Protocol Last Admin: 08/30/19 06:19 Dose: Not Given Levothyroxine Sodium (Synthroid -) 75 mcg PO ACBK@0700 [facility] Last Admin: 08/30/19 06:18 Dose: 75 mcg Polyethylene Glycol (Miralax (For Daily Use) -) 17 gm PO TID [facility] Last Admin: 08/30/19 06:14 Dose: 17 gm Quetiapine Fumarate 50 mg/ (Quetiapine Fumarate 25 mg) 75 mg PO BID [facility] Last Admin: 08/29/19 21:27 Dose: 75 mg Rivaroxaban (Xarelto) 15 mg PO DAILY@1800 [facility] Last Admin: 08/29/19 17:21 Dose: 15 mg Senna (Senna -) 2 tab PO HS PRN PRN Reason: CONSTIPATION - Objective Vital Signs: Vital Signs Temperature 98.2 F 08/30/19 06:00 Pulse Rate 60 08/30/19 06:00 Respiratory Rate 20 08/30/19 06:00 Blood Pressure 90/60 08/30/19 06:00 O2 Sat by Pulse Oximetry (%) 100 08/29/19 22:00 Constitutional: Yes: Mild Distress Cardiovascular: Yes: Pulse Irregular Respiratory: Yes: Diminished, On Nasal O2, On Venti-Mask Gastrointestinal: Yes: Soft Genitourinary: Yes: Incontinence Musculoskeletal: Yes: Muscle Weakness Edema: No Neurological: Yes: Confusion, Lethargy, Pre-Existing Deficit, Weakness Labs: CBC, BMP 08/28/19 06:15 08/29/19 06:00 INR, PTT INR 2.69 (0.83-1.09) H 08/24/19 21:27 Problem List - Problems (1) JENNYFER (acute kidney injury) Code(s): N17.9 - ACUTE KIDNEY FAILURE, UNSPECIFIED (2) Acute on chronic systolic CHF (congestive heart failure), NYHA class 1 Code(s): I50.23 - ACUTE ON CHRONIC SYSTOLIC (CONGESTIVE) HEART FAILURE (3) Bacteremia Code(s): R78.81 - BACTEREMIA (4) History of permanent cardiac pacemaker placement Code(s): Z95.0 - PRESENCE OF CARDIAC PACEMAKER (5) Lactic acidosis Code(s): E87.2 - ACIDOSIS (6) Pneumonia Code(s): J18.9 - PNEUMONIA, UNSPECIFIED ORGANISM Qualifiers: Pneumonia type: due to unspecified organism Laterality: bilateral Lung location: lower lobe of lung Qualified Code(s): J18.9 - Pneumonia, unspecified organism (7) Sepsis Code(s): A41.9 - SEPSIS, UNSPECIFIED ORGANISM (8) Atrial fibrillation with controlled ventricular rate Code(s): I48.91 - UNSPECIFIED ATRIAL FIBRILLATION (9) COPD (chronic obstructive pulmonary disease) Code(s): J44.9 - CHRONIC OBSTRUCTIVE PULMONARY DISEASE, UNSPECIFIED Qualifiers: COPD type: unspecified COPD Qualified Code(s): J44.9 - Chronic obstructive pulmonary disease, unspecified Assessment/Plan IV ABX PER ID IVF RENAL EVAL NEED OUTLINED ADVANCED DIRECTIVE WITH FAMILY DVT PROPHYLAXIS CARDIO/PULM EVAL APPRECIATED NEBS/02 SUPPORT
--- NOTE | 2019-08-30 10:22 | PN ---
Progress Note, Physician History of Present Illness: Afebrile, arousable. - Current Medication List Current Medications: Active Medications Al Hydroxide/Mg Hydroxide (Mylanta Oral Suspension -) 30 ml PO Q6H PRN PRN Reason: DYSPEPSIA Albuterol/Ipratropium (Duoneb -) 1 amp NEB RQID [facility] Last Admin: 08/30/19 09:14 Dose: 1 amp Atorvastatin Calcium (Lipitor -) 10 mg PO HS [facility] Last Admin: 08/29/19 21:28 Dose: 10 mg Carvedilol (Coreg -) 3.125 mg PO BID [facility] Last Admin: 08/29/19 21:28 Dose: 3.125 mg Docusate Sodium (Colace -) 100 mg PO TID [facility] Last Admin: 08/30/19 06:14 Dose: 100 mg Furosemide (Lasix Injection -) 40 mg IVPUSH DAILY [facility] Last Admin: 08/29/19 10:37 Dose: 40 mg Vancomycin HCl (Vancomycin (Pre-Docked)) 1,000 mg in 250 mls @ 166.667 mls/hr IVPB DAILY@1600 [facility]; Protocol Last Admin: 08/29/19 17:21 Dose: 166.667 mls/hr Piperacillin Sod/Tazobactam (Sod 2.25 gm/ Dextrose) 50 mls @ 100 mls/hr IVPB Q8H-IV [facility]; Protocol Last Admin: 08/30/19 01:19 Dose: 100 mls/hr Insulin Aspart (Novolog Vial Sliding Scale -) 1 vial SQ TIDAC [facility]; Protocol Last Admin: 08/30/19 06:19 Dose: Not Given Levothyroxine Sodium (Synthroid -) 75 mcg PO ACBK@0700 [facility] Last Admin: 08/30/19 06:18 Dose: 75 mcg Polyethylene Glycol (Miralax (For Daily Use) -) 17 gm PO TID [facility] Last Admin: 08/30/19 06:14 Dose: 17 gm Quetiapine Fumarate 50 mg/ (Quetiapine Fumarate 25 mg) 75 mg PO BID [facility] Last Admin: 08/29/19 21:27 Dose: 75 mg Rivaroxaban (Xarelto) 15 mg PO DAILY@1800 [facility] Last Admin: 08/29/19 17:21 Dose: 15 mg Senna (Senna -) 2 tab PO HS PRN PRN Reason: CONSTIPATION - Objective Vital Signs: Vital Signs Temperature 98.2 F 08/30/19 06:00 Pulse Rate 60 08/30/19 06:00 Respiratory Rate 20 08/30/19 06:00 Blood Pressure 90/60 08/30/19 06:00 O2 Sat by Pulse Oximetry (%) 100 08/29/19 22:00 Constitutional: Yes: No Distress, Calm, Thin Neck: Yes: Supple Cardiovascular: Yes: Regular Rate and Rhythm Respiratory: Yes: Regular, Diminished, On Nasal O2 Gastrointestinal: Yes: Soft, Hypoactive Bowel Sounds Edema: No Labs: CBC, BMP 08/28/19 06:15 08/29/19 06:00 INR, PTT INR 2.69 (0.83-1.09) H 08/24/19 21:27 - ....Imaging EKG: Report Reviewed (Tele: AV paced) Problem List - Problems (1) JENNYFER (acute kidney injury) Code(s): N17.9 - ACUTE KIDNEY FAILURE, UNSPECIFIED (2) Pneumonia Code(s): J18.9 - PNEUMONIA, UNSPECIFIED ORGANISM Qualifiers: Pneumonia type: due to unspecified organism Laterality: bilateral Lung location: lower lobe of lung Qualified Code(s): J18.9 - Pneumonia, unspecified organism (3) Anemia Code(s): D64.9 - ANEMIA, UNSPECIFIED (4) Atrial fibrillation with controlled ventricular rate Code(s): I48.91 - UNSPECIFIED ATRIAL FIBRILLATION (5) CHF (congestive heart failure) Code(s): I50.9 - HEART FAILURE, UNSPECIFIED Qualifiers: Heart failure type: combined systolic and diastolic Heart failure chronicity: chronic Qualified Code(s): I50.42 - Chronic combined systolic ( congestive) and diastolic (congestive) heart failure (6) Chronic anticoagulation Code(s): Z79.01 - FILENET ARCHITECT (CURRENT) USE OF ANTICOAGULANTS (7) Hypercholesterolemia Code(s): E78.00 - PURE HYPERCHOLESTEROLEMIA, UNSPECIFIED (8) Hypothyroid Code(s): E03.9 - HYPOTHYROIDISM, UNSPECIFIED Qualifiers: Hypothyroidism type: unspecified Qualified Code(s): E03.9 - Hypothyroidism , unspecified (9) IDDM (insulin dependent diabetes mellitus) Code(s): E11.9 - TYPE 2 DIABETES MELLITUS WITHOUT COMPLICATIONS; Z79.4 - RESIDENTIAL (CURRENT) USE OF INSULIN (10) Presence of permanent cardiac pacemaker Code(s): Z95.0 - PRESENCE OF CARDIAC PACEMAKER (11) Sleep apnea Code(s): G47.30 - SLEEP APNEA, UNSPECIFIED Qualifiers: Sleep apnea type: unspecified type Qualified Code(s): G47.30 - Sleep apnea , unspecified Assessment/Plan 08/27/2019 Echo: TDS Normal LV size with severe decreased LV fxn, mild MR, TR 08/24 CT abdomen/pelvis without contrast showed "Nodular contour of the liver compatible with cirrhosis. There is large quantity of colonic gas as well as a large stool burden most compatible with constipation. There is thickening of the low rectum; this may be related to underdistention although neoplasm cannot be excluded. Recommend proctoscopy. There is asymmetric wall thickening of the urinary bladder with question of a nodule anteriorly which measures approximately 8 mm. Alternatively this may represent an indentation from an enlarged prostate There is evidence of prior TURP. 07/12/2018 Echo: Normal LV size with mod decreased LV fxn, RV paced, mild ROGER, mild-mod TR, mild MR 1. MSSA sepsis/pneumonia 2. 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 CAD post PCI/stent, demand ischemia referable to #1 3. Persistent atrial fibrillation [id number] 6 on A/C with DOAC's/Xarelto 4. AV block post PPM 5. HTN 6. DM 7. Hypercholesterolemia 8. COPD on home O2 9. Shock liver resolving 10. Non-oliguric acute kidney injury with hyperkalemia improving, pre-renal azotemia referable to sepsis 11. Anemia 12. Hypothyroidism 13. Lactic acidosis 14. Toxic metabolic encephelopathy 14. Schizophrenia PLAN: 1. Narrow abx per C&S, trend trops, LFTs to document peak 2. Resume Coreg 3.125 bid and Cozaar 25 qd pending hemodynamic stability and renal fxn, hyperkalemia recovery 3. Continue Xarelto 15 qd with caution and close monitoring of Hg, transfuse to maintain Hg equal or > 8.0 4. IV diuresis as needed to keep even 6. Continue Lipitor 10 qd, Xarelto 15 qd
[2019-08-30] MEDS: FUROSEMIDE 40 MG/4 ML INJECTABLE VIAL IVPUSH SCH (11:06)
[2019-08-30] MEDS: CARVEDILOL 3.125 MG TABLET (FP) PO SCH ×2 (11:07→21:19)
[2019-08-30] MEDS: QUETIAPINE FUMARATE 50 MG, QUETIAPINE FUMARATE 25 MG PO SCH ×2 (11:07→21:20)
[2019-08-30] MEDS: VANCOMYCIN 1 GRAM (PRE-DOCKED) 1,000 MG/250 ML BAG IVPB SCH (16:09)
--- NOTE | 2019-08-30 16:39 | PN ---
Progress Note, Physician History of Present Illness: Pt seen and examined at bedside. He is awake and appears comfortable. - Current Medication List Current Medications: Active Medications Al Hydroxide/Mg Hydroxide (Mylanta Oral Suspension -) 30 ml PO Q6H PRN PRN Reason: DYSPEPSIA Albuterol/Ipratropium (Duoneb -) 1 amp NEB RQID [facility] Last Admin: 08/30/19 13:00 Dose: 1 amp Atorvastatin Calcium (Lipitor -) 10 mg PO HS [facility] Last Admin: 08/29/19 21:28 Dose: 10 mg Carvedilol (Coreg -) 3.125 mg PO BID [facility] Last Admin: 08/30/19 11:07 Dose: 3.125 mg Docusate Sodium (Colace -) 100 mg PO TID [facility] Last Admin: 08/30/19 14:20 Dose: Not Given Furosemide (Lasix Injection -) 40 mg IVPUSH DAILY [facility] Last Admin: 08/30/19 11:06 Dose: 40 mg Vancomycin HCl (Vancomycin (Pre-Docked)) 1,000 mg in 250 mls @ 166.667 mls/hr IVPB DAILY@1600 [facility]; Protocol Last Admin: 08/30/19 16:09 Dose: 166.667 mls/hr Piperacillin Sod/Tazobactam (Sod 2.25 gm/ Dextrose) 50 mls @ 100 mls/hr IVPB Q8H-IV [facility]; Protocol Last Admin: 08/30/19 11:06 Dose: 100 mls/hr Insulin Aspart (Novolog Vial Sliding Scale -) 1 vial SQ TIDAC [facility]; Protocol Last Admin: 08/30/19 11:48 Dose: 6 units Levothyroxine Sodium (Synthroid -) 75 mcg PO ACBK@0700 [facility] Last Admin: 08/30/19 06:18 Dose: 75 mcg Polyethylene Glycol (Miralax (For Daily Use) -) 17 gm PO TID [facility] Last Admin: 08/30/19 14:20 Dose: Not Given Quetiapine Fumarate 50 mg/ (Quetiapine Fumarate 25 mg) 75 mg PO BID [facility] Last Admin: 08/30/19 11:07 Dose: 75 mg Rivaroxaban (Xarelto) 15 mg PO DAILY@1800 [facility] Last Admin: 08/29/19 17:21 Dose: 15 mg Senna (Senna -) 2 tab PO HS PRN PRN Reason: CONSTIPATION - Objective Vital Signs: Vital Signs Temperature 98.8 F 08/30/19 14:50 Pulse Rate 63 08/30/19 14:50 Respiratory Rate 20 08/30/19 14:50 Blood Pressure 104/57 L 08/30/19 14:50 O2 Sat by Pulse Oximetry (%) 100 08/30/19 09:00 Constitutional: Yes: Calm Eyes: Yes: Conjunctiva Clear HENT: Yes: Atraumatic Neck: Yes: Supple Cardiovascular: Yes: S1, S2 Respiratory: Yes: CTA Bilaterally Gastrointestinal: Yes: Soft Genitourinary: Yes: WNL Musculoskeletal: Yes: WNL Edema: No Neurological: Yes: Confusion Labs: CBC, BMP 08/28/19 06:15 08/29/19 06:00 INR, PTT INR 2.69 (0.83-1.09) H 08/24/19 21:27 Problem List - Problems (1) JENNYFER (acute kidney injury) Code(s): N17.9 - ACUTE KIDNEY FAILURE, UNSPECIFIED Assessment/Plan Current Medications Generic Name Dose Route Start Last Admin Trade Name Freq PRN Reason Stop Dose Admin Al Hydroxide/Mg Hydroxide 30 ml 08/27/19 15:19 Mylanta Oral Suspension - PO Q6H PRN DYSPEPSIA Albuterol/Ipratropium 1 amp 08/27/19 16:00 08/30/19 13:00 Duoneb - NEB 1 amp RQID [facility] Administration Atorvastatin Calcium 10 mg 08/27/19 22:00 08/29/19 21:28 Lipitor - PO 10 mg HS [facility] Administration Carvedilol 3.125 mg 08/28/19 12:15 08/30/19 11:07 Coreg - PO 3.125 mg BID [facility] Administration Docusate Sodium 100 mg 08/27/19 22:00 08/30/19 14:20 Colace - PO Not Given TID [facility] Furosemide 40 mg 08/28/19 10:00 08/30/19 11:06 Lasix Injection - IVPUSH 40 mg DAILY [facility] Administration Vancomycin HCl 1,000 mg in 250 mls @ 166.667 mls/hr 08/28/19 16:15 08/30/19 16:09 Vancomycin (Pre-Docked) IVPB 166.667 mls/hr DAILY@1600 [facility] Administration Protocol Piperacillin Sod/Tazobactam 50 mls @ 100 mls/hr 08/27/19 18:00 08/30/19 11:06 Sod 2.25 gm/ Dextrose IVPB 100 mls/hr Q8H-IV [facility] Administration Protocol Insulin Aspart 1 vial 08/27/19 16:30 08/30/19 11:48 Novolog Vial Sliding Scale - SQ 6 units TIDAC [facility] Administration Protocol Levothyroxine Sodium 75 mcg 08/28/19 07:00 08/30/19 06:18 Synthroid - PO 75 mcg ACBK@0700 [facility] Administration Polyethylene Glycol 17 gm 08/27/19 22:00 08/30/19 14:20 Miralax (For Daily Use) - PO Not Given TID [facility] Quetiapine Fumarate 50 mg/ 75 mg 08/27/19 22:00 08/30/19 11:07 Quetiapine Fumarate 25 mg PO 75 mg BID [facility] Administration Rivaroxaban 15 mg 08/27/19 18:00 08/29/19 17:21 Xarelto PO 15 mg DAILY@1800 [facility] Administration Senna 2 tab 08/27/19 15:19 Senna - PO HS PRN CONSTIPATION Impression JENNYFER hyperkalemia HTN HLD DM CAD s/p 7 stents afib on Xarelto systolic CHF CKD COPD on home o2 hypothyroidism schizophrenia Plan - volume status stabilizing - cont lasix - check bmp - monitor volume status - potassium stable
[2019-08-30] MEDS: RIVAROXABAN 15 MG TABLET PO SCH (17:12)
--- NOTE | 2019-08-30 21:30 | PN ---
Progress Note, Physician History of Present Illness: MORE AWAKE AND ALERT SEATED IN BED EATING BREAKFAST OFFERS NO COMPLAINTS AFEBRILE RENAL FUNCTION IMPROVED - Current Medication List Current Medications: Active Medications Al Hydroxide/Mg Hydroxide (Mylanta Oral Suspension -) 30 ml PO Q6H PRN PRN Reason: DYSPEPSIA Albuterol/Ipratropium (Duoneb -) 1 amp NEB RQID [facility] Last Admin: 08/30/19 20:50 Dose: 1 amp Atorvastatin Calcium (Lipitor -) 10 mg PO HS [facility] Last Admin: 08/29/19 21:28 Dose: 10 mg Carvedilol (Coreg -) 3.125 mg PO BID [facility] Last Admin: 08/30/19 11:07 Dose: 3.125 mg Docusate Sodium (Colace -) 100 mg PO TID [facility] Last Admin: 08/30/19 16:12 Dose: 100 mg Furosemide (Lasix Injection -) 40 mg IVPUSH DAILY [facility] Last Admin: 08/30/19 11:06 Dose: 40 mg Vancomycin HCl (Vancomycin (Pre-Docked)) 1,000 mg in 250 mls @ 166.667 mls/hr IVPB DAILY@1600 [facility]; Protocol Last Admin: 08/30/19 16:09 Dose: 166.667 mls/hr Piperacillin Sod/Tazobactam (Sod 2.25 gm/ Dextrose) 50 mls @ 100 mls/hr IVPB Q8H-IV [facility]; Protocol Last Admin: 08/30/19 17:12 Dose: 100 mls/hr Insulin Aspart (Novolog Vial Sliding Scale -) 1 vial SQ TIDAC [facility]; Protocol Last Admin: 08/30/19 18:16 Dose: 2 units Levothyroxine Sodium (Synthroid -) 75 mcg PO ACBK@0700 [facility] Last Admin: 08/30/19 06:18 Dose: 75 mcg Polyethylene Glycol (Miralax (For Daily Use) -) 17 gm PO TID [facility] Last Admin: 08/30/19 14:20 Dose: Not Given Quetiapine Fumarate 50 mg/ (Quetiapine Fumarate 25 mg) 75 mg PO BID [facility] Last Admin: 08/30/19 11:07 Dose: 75 mg Rivaroxaban (Xarelto) 15 mg PO DAILY@1800 [facility] Last Admin: 08/30/19 17:12 Dose: 15 mg Senna (Senna -) 2 tab PO HS PRN PRN Reason: CONSTIPATION - Objective Vital Signs: Vital Signs Temperature 99 F 08/30/19 21:00 Pulse Rate 60 08/30/19 21:00 Respiratory Rate 20 08/30/19 21:00 Blood Pressure 92/54 L 08/30/19 21:00 O2 Sat by Pulse Oximetry (%) 98 08/30/19 20:59 Constitutional: Yes: No Distress Cardiovascular: Yes: Regular Rate and Rhythm, S1, S2 Respiratory: Yes: CTA Bilaterally Gastrointestinal: Yes: Normal Bowel Sounds, Soft Extremities: Yes: Other (+ ABRASION R PRETIBIAL AREA WITH ERYTHEMA) Edema: No Labs: CBC, BMP 08/28/19 06:15 08/29/19 06:00 INR, PTT INR 2.69 (0.83-1.09) H 08/24/19 21:27 Assessment/Plan [facility]APH BACTEREMIA MSSA ? SKIN SOURCE TOXIC METABOLIC ENCEPHALOPATHY IMPROVED AZOTEMIA IMPROVED REPEAT BC SUBSTITUTE [id number]
[2019-08-30] MEDS: ATORVASTATIN CA 10 MG TABLET (FP) PO SCH (21:32)
[2019-08-31] MEDS ORDERED: DEXTROSE 5%-WATER - 50 ML IVPB ONE (00:28)
[2019-08-31] MEDS ORDERED: PIPERACILLIN/TAZOBACTAM 2.25 GM VIAL IVPB ONE (00:28)
[2019-08-31] MEDS: PIPERACILLIN/TAZOB 2.25 GM 2.25 GM in DEXTROSE 5%-WATER - 50 ML IVPB SCH (01:06)
[2019-08-31] MEDS: LEVOTHYROXINE NA 75 MCG TABLET (FP) PO SCH (06:30)
[2019-08-31] MEDS: NAFCILLIN - 2 GM in DEXTROSE 5%-WATER - 100 ML IVPB SCH ×5 (06:31→22:53)
[2019-08-31] MEDS: POLYETHYLENE GLYCOL 3350 119 GM BTL PO SCH ×3 (06:31→22:54)
[2019-08-31] MEDS: DOCUSATE SODIUM 100 MG CAPSULE (FP) PO SCH ×3 (06:31→22:53)
[2019-08-31] MEDS: INSULIN SLIDING SCALE (NOVOLOG) 1 VIAL SQ SCH ×2 (06:44→18:26)
[2019-08-31 07:01] LABS: HEMATOCRIT 29.6 % (35.4-49); HEMOGLOBIN 9.8 GM/dL (11.7-16.9); MCH 32.7 pg (25.7-33.7); MCHC 33.1 g/dl (32.0-35.9); MEAN CELL VOLUME 98.8 fl (80-96); MEAN PLT VOLUME 9.2 fl (7.5-11.1); PLATELET COUNT 274 K/MM3 (134-434); RBC 2.99 M/mm3 (4.00-5.60); RDW 17.9 % (11.9-15.9); WHITE BLOOD COUNT 6.8 K/mm3 (4.0-10.0)
[2019-08-31 07:26] LABS: ALBUMIN 2.9 g/dl (3.4-5.0); BLOOD UREA NITROGEN 26.9 mg/dL (7-18); CALCIUM 8.6 mg/dL (8.5-10.1); CREATININE 1.2 mg/dL (0.55-1.3); POTASSIUM 4.6 mmol/L (3.5-5.1); TOT PROT 6.8 g/dl (6.4-8.2)
[2019-08-31] MEDS: ALBUTEROL SO4 2.5/IPRATROPIUM 0.5 INH SOL 3 ML VIAL.NEB. NEB SCH ×4 (07:45→20:55)
[2019-08-31] MEDS: CARVEDILOL 3.125 MG TABLET (FP) PO SCH ×2 (10:03→22:52)
[2019-08-31] MEDS: QUETIAPINE FUMARATE 50 MG, QUETIAPINE FUMARATE 25 MG PO SCH (10:03)
[2019-08-31] MEDS: FUROSEMIDE 40 MG/4 ML INJECTABLE VIAL IVPUSH SCH (10:09)
--- NOTE | 2019-08-31 10:19 | PN ---
Progress Note, Physician History of Present Illness: Afebrile, arousable. - Current Medication List Current Medications: Active Medications Al Hydroxide/Mg Hydroxide (Mylanta Oral Suspension -) 30 ml PO Q6H PRN PRN Reason: DYSPEPSIA Albuterol/Ipratropium (Duoneb -) 1 amp NEB RQID [facility] Last Admin: 08/31/19 07:45 Dose: 1 amp Atorvastatin Calcium (Lipitor -) 10 mg PO HS [facility] Last Admin: 08/30/19 21:32 Dose: 10 mg Carvedilol (Coreg -) 3.125 mg PO BID [facility] Last Admin: 08/31/19 10:03 Dose: 3.125 mg Docusate Sodium (Colace -) 100 mg PO TID [facility] Last Admin: 08/31/19 06:31 Dose: 100 mg Furosemide (Lasix Injection -) 40 mg IVPUSH DAILY [facility] Last Admin: 08/31/19 10:09 Dose: 40 mg Nafcillin Sodium 2 gm/ (Dextrose) 100 mls @ 100 mls/hr IVPB Q4H-IV [facility]; Protocol Last Admin: 08/31/19 10:09 Dose: 100 mls/hr Insulin Aspart (Novolog Vial Sliding Scale -) 1 vial SQ TIDAC [facility]; Protocol Last Admin: 08/31/19 06:44 Dose: Not Given Levothyroxine Sodium (Synthroid -) 75 mcg PO ACBK@0700 [facility] Last Admin: 08/31/19 06:30 Dose: 75 mcg Polyethylene Glycol (Miralax (For Daily Use) -) 17 gm PO TID [facility] Last Admin: 08/31/19 06:31 Dose: 17 gm Quetiapine Fumarate 50 mg/ (Quetiapine Fumarate 25 mg) 75 mg PO BID [facility] Last Admin: 08/31/19 10:03 Dose: 75 mg Rivaroxaban (Xarelto) 15 mg PO DAILY@1800 [facility] Last Admin: 08/30/19 17:12 Dose: 15 mg Senna (Senna -) 2 tab PO HS PRN PRN Reason: CONSTIPATION - Objective Vital Signs: Vital Signs Temperature 98.4 F 08/31/19 06:20 Pulse Rate 60 08/31/19 06:20 Respiratory Rate 20 08/31/19 06:20 Blood Pressure 91/51 L 08/31/19 06:20 O2 Sat by Pulse Oximetry (%) 98 08/30/19 20:59 Constitutional: Yes: No Distress, Calm Neck: Yes: Supple Cardiovascular: Yes: Regular Rate and Rhythm Respiratory: Yes: Regular, Diminished, On Nasal O2 Gastrointestinal: Yes: Normal Bowel Sounds, Soft Genitourinary: Yes: Arroyo Present Edema: No Labs: CBC, BMP 08/31/19 05:40 08/31/19 06:00 INR, PTT INR 2.69 (0.83-1.09) H 08/24/19 21:27 - ....Imaging EKG: Report Reviewed (Tele AV paced) Problem List - Problems (1) JENNYFER (acute kidney injury) Code(s): N17.9 - ACUTE KIDNEY FAILURE, UNSPECIFIED (2) Pneumonia Code(s): J18.9 - PNEUMONIA, UNSPECIFIED ORGANISM Qualifiers: Pneumonia type: due to unspecified organism Laterality: bilateral Lung location: lower lobe of lung Qualified Code(s): J18.9 - Pneumonia, unspecified organism (3) Anemia Code(s): D64.9 - ANEMIA, UNSPECIFIED (4) Atrial fibrillation with controlled ventricular rate Code(s): I48.91 - UNSPECIFIED ATRIAL FIBRILLATION (5) CHF (congestive heart failure) Code(s): I50.9 - HEART FAILURE, UNSPECIFIED Qualifiers: Heart failure type: combined systolic and diastolic Heart failure chronicity: chronic Qualified Code(s): I50.42 - Chronic combined systolic ( congestive) and diastolic (congestive) heart failure (6) Chronic anticoagulation Code(s): Z79.01 - COUNTY ENGINEER (CURRENT) USE OF ANTICOAGULANTS (7) Hypercholesterolemia Code(s): E78.00 - PURE HYPERCHOLESTEROLEMIA, UNSPECIFIED (8) Hypothyroid Code(s): E03.9 - HYPOTHYROIDISM, UNSPECIFIED Qualifiers: Hypothyroidism type: unspecified Qualified Code(s): E03.9 - Hypothyroidism , unspecified (9) IDDM (insulin dependent diabetes mellitus) Code(s): E11.9 - TYPE 2 DIABETES MELLITUS WITHOUT COMPLICATIONS; Z79.4 - COUNTY ENGINEER (CURRENT) USE OF INSULIN (10) Presence of permanent cardiac pacemaker Code(s): Z95.0 - PRESENCE OF CARDIAC PACEMAKER (11) Sleep apnea Code(s): G47.30 - SLEEP APNEA, UNSPECIFIED Qualifiers: Sleep apnea type: unspecified type Qualified Code(s): G47.30 - Sleep apnea , unspecified Assessment/Plan 08/27/2019 Echo: TDS Normal LV size with severe decreased LV fxn, mild MR, TR 08/24 CT abdomen/pelvis without contrast showed "Nodular contour of the liver compatible with cirrhosis. There is large quantity of colonic gas as well as a large stool burden most compatible with constipation. There is thickening of the low rectum; this may be related to underdistention although neoplasm cannot be excluded. Recommend proctoscopy. There is asymmetric wall thickening of the urinary bladder with question of a nodule anteriorly which measures approximately 8 mm. Alternatively this may represent an indentation from an enlarged prostate There is evidence of prior TURP. 07/12/2018 Echo: Normal LV size with mod decreased LV fxn, RV paced, mild ROGER, mild-mod TR, mild MR 1. MSSA sepsis/pneumonia ? skin source 2. Acute on chronic Systolic/diastolic LV failure resolving 3. CAD post PCI/stent, demand ischemia referable to #1 4. Persistent atrial fibrillation [id number] 6 on A/C with DOAC's/Xarelto 5. AV block post PPM 6. HTN 7. DM 8. Hypercholesterolemia 9. COPD on home O2 10. Shock liver resolving 11. Non-oliguric acute kidney injury with hyperkalemia improving, pre-renal azotemia referable to sepsis 12. Anemia 13. Hypothyroidism 14. Lactic acidosis 15. Toxic metabolic encephelopathy improved 16. Schizophrenia PLAN: 1. Narrowed abx per C&S to Nafcillin, trops, LFTs downtrending 2. Resumed Coreg 3.125 bid and Diovan 40 qd given hemodynamic stability and renal fxn, hyperkalemia recovery 3. Continue Xarelto 15 qd with caution and close monitoring of Hg, transfuse to maintain Hg equal or > 8.0 4. Resume oral diuresis Lasix 20 qd with monitor diuretic response, renal fxn and electrolytes 5. Continue Lipitor 10 qd, Xarelto 15 qd
--- NOTE | 2019-08-31 12:49 | PN ---
Progress Note, Physician Chief Complaint: ASLEEP 02 AND NEB MASK TREATMENT NO ACUTE CHANGES THIS MORNING WEAK AND CONFUSED - Current Medication List Current Medications: Active Medications Al Hydroxide/Mg Hydroxide (Mylanta Oral Suspension -) 30 ml PO Q6H PRN PRN Reason: DYSPEPSIA Albuterol/Ipratropium (Duoneb -) 1 amp NEB RQID [facility] Last Admin: 08/31/19 12:25 Dose: 1 amp Atorvastatin Calcium (Lipitor -) 10 mg PO HS [facility] Last Admin: 08/30/19 21:32 Dose: 10 mg Carvedilol (Coreg -) 3.125 mg PO BID [facility] Last Admin: 08/31/19 10:03 Dose: 3.125 mg Docusate Sodium (Colace -) 100 mg PO TID [facility] Last Admin: 08/31/19 06:31 Dose: 100 mg Furosemide (Lasix -) 20 mg PO DAILY [facility] Nafcillin Sodium 2 gm/ (Dextrose) 100 mls @ 100 mls/hr IVPB Q4H-IV [facility]; Protocol Last Admin: 08/31/19 10:09 Dose: 100 mls/hr Insulin Aspart (Novolog Vial Sliding Scale -) 1 vial SQ TIDAC [facility]; Protocol Last Admin: 08/31/19 06:44 Dose: Not Given Levothyroxine Sodium (Synthroid -) 75 mcg PO ACBK@0700 [facility] Last Admin: 08/31/19 06:30 Dose: 75 mcg Polyethylene Glycol (Miralax (For Daily Use) -) 17 gm PO TID [facility] Last Admin: 08/31/19 06:31 Dose: 17 gm Quetiapine Fumarate 50 mg/ (Quetiapine Fumarate 25 mg) 75 mg PO BID [facility] Last Admin: 08/31/19 10:03 Dose: 75 mg Rivaroxaban (Xarelto) 15 mg PO DAILY@1800 [facility] Last Admin: 08/30/19 17:12 Dose: 15 mg Senna (Senna -) 2 tab PO HS PRN PRN Reason: CONSTIPATION Valsartan (Diovan -) 40 mg PO DAILY [facility] - Objective Vital Signs: Vital Signs Temperature 98.4 F 08/31/19 06:20 Pulse Rate 60 08/31/19 06:20 Respiratory Rate 20 08/31/19 06:20 Blood Pressure 91/51 L 08/31/19 06:20 O2 Sat by Pulse Oximetry (%) 98 08/30/19 20:59 Constitutional: Yes: Mild Distress Cardiovascular: Yes: Pulse Irregular Respiratory: Yes: Diminished, On Nasal O2 Gastrointestinal: Yes: Soft Genitourinary: Yes: Incontinence Musculoskeletal: Yes: Muscle Weakness Labs: CBC, BMP 08/31/19 05:40 08/31/19 06:00 INR, PTT INR 2.69 (0.83-1.09) H 08/24/19 21:27 Problem List - Problems (1) JENNYFER (acute kidney injury) Code(s): N17.9 - ACUTE KIDNEY FAILURE, UNSPECIFIED (2) Acute on chronic systolic CHF (congestive heart failure), NYHA class 1 Code(s): I50.23 - ACUTE ON CHRONIC SYSTOLIC (CONGESTIVE) HEART FAILURE (3) Bacteremia Code(s): R78.81 - BACTEREMIA (4) History of permanent cardiac pacemaker placement Code(s): Z95.0 - PRESENCE OF CARDIAC PACEMAKER (5) Lactic acidosis Code(s): E87.2 - ACIDOSIS (6) Pneumonia Code(s): J18.9 - PNEUMONIA, UNSPECIFIED ORGANISM Qualifiers: Pneumonia type: due to unspecified organism Laterality: bilateral Lung location: lower lobe of lung Qualified Code(s): J18.9 - Pneumonia, unspecified organism (7) Sepsis Code(s): A41.9 - SEPSIS, UNSPECIFIED ORGANISM (8) Atrial fibrillation with controlled ventricular rate Code(s): I48.91 - UNSPECIFIED ATRIAL FIBRILLATION (9) COPD (chronic obstructive pulmonary disease) Code(s): J44.9 - CHRONIC OBSTRUCTIVE PULMONARY DISEASE, UNSPECIFIED Qualifiers: COPD type: unspecified COPD Qualified Code(s): J44.9 - Chronic obstructive pulmonary disease, unspecified Assessment/Plan IV ABX PER ID IVF RENAL EVAL NEED OUTLINED ADVANCED DIRECTIVE WITH FAMILY DVT PROPHYLAXIS CARDIO/PULM EVAL APPRECIATED NEBS/02 SUPPORT
--- NOTE | 2019-08-31 16:15 | PN ---
Progress Note, Physician History of Present Illness: Pt seen and examined at bedside. He is awake and appears comfortable. He denies shortness of breath. - Current Medication List Current Medications: Active Medications Al Hydroxide/Mg Hydroxide (Mylanta Oral Suspension -) 30 ml PO Q6H PRN PRN Reason: DYSPEPSIA Albuterol/Ipratropium (Duoneb -) 1 amp NEB RQID [facility] Last Admin: 08/31/19 12:25 Dose: 1 amp Atorvastatin Calcium (Lipitor -) 10 mg PO HS [facility] Last Admin: 08/30/19 21:32 Dose: 10 mg Carvedilol (Coreg -) 3.125 mg PO BID [facility] Last Admin: 08/31/19 10:03 Dose: 3.125 mg Docusate Sodium (Colace -) 100 mg PO TID [facility] Last Admin: 08/31/19 14:09 Dose: 100 mg Furosemide (Lasix -) 20 mg PO DAILY [facility] Nafcillin Sodium 2 gm/ (Dextrose) 100 mls @ 100 mls/hr IVPB Q4H-IV [facility]; Protocol Last Admin: 08/31/19 14:09 Dose: 100 mls/hr Insulin Aspart (Novolog Vial Sliding Scale -) 1 vial SQ TIDAC [facility]; Protocol Last Admin: 08/31/19 06:44 Dose: Not Given Levothyroxine Sodium (Synthroid -) 75 mcg PO ACBK@0700 [facility] Last Admin: 08/31/19 06:30 Dose: 75 mcg Polyethylene Glycol (Miralax (For Daily Use) -) 17 gm PO TID [facility] Last Admin: 08/31/19 14:09 Dose: 17 gm Quetiapine Fumarate 50 mg/ (Quetiapine Fumarate 25 mg) 75 mg PO BID [facility] Last Admin: 08/31/19 10:03 Dose: 75 mg Rivaroxaban (Xarelto) 15 mg PO DAILY@1800 [facility] Last Admin: 08/30/19 17:12 Dose: 15 mg Senna (Senna -) 2 tab PO HS PRN PRN Reason: CONSTIPATION Valsartan (Diovan -) 40 mg PO DAILY [facility] - Objective Vital Signs: Vital Signs Temperature 98.4 F 08/31/19 06:20 Pulse Rate 60 08/31/19 06:20 Respiratory Rate 20 08/31/19 06:20 Blood Pressure 91/51 L 08/31/19 06:20 O2 Sat by Pulse Oximetry (%) 98 08/30/19 20:59 Constitutional: Yes: Calm Eyes: Yes: Conjunctiva Clear HENT: Yes: Atraumatic Cardiovascular: Yes: S1, S2 Respiratory: Yes: CTA Bilaterally Gastrointestinal: Yes: Soft Genitourinary: Yes: Arroyo Present Musculoskeletal: Yes: WNL Edema: No Neurological: Yes: Oriented Psychiatric: Yes: Oriented Labs: CBC, BMP 08/31/19 05:40 08/31/19 06:00 INR, PTT INR 2.69 (0.83-1.09) H 08/24/19 21:27 Problem List - Problems (1) JENNYFER (acute kidney injury) Code(s): N17.9 - ACUTE KIDNEY FAILURE, UNSPECIFIED Assessment/Plan Current Medications Generic Name Dose Route Start Last Admin Trade Name Freq PRN Reason Stop Dose Admin Al Hydroxide/Mg Hydroxide 30 ml 08/27/19 15:19 Mylanta Oral Suspension - PO Q6H PRN DYSPEPSIA Albuterol/Ipratropium 1 amp 08/27/19 16:00 08/31/19 12:25 Duoneb - NEB 1 amp RQID [facility] Administration Atorvastatin Calcium 10 mg 08/27/19 22:00 08/30/19 21:32 Lipitor - PO 10 mg HS [facility] Administration Carvedilol 3.125 mg 08/28/19 12:15 08/31/19 10:03 Coreg - PO 3.125 mg BID [facility] Administration Docusate Sodium 100 mg 08/27/19 22:00 08/31/19 14:09 Colace - PO 100 mg TID [facility] Administration Furosemide 20 mg 09/01/19 10:00 Lasix - PO DAILY [facility] Nafcillin Sodium 2 gm/ 100 mls @ 100 mls/hr 08/31/19 06:15 08/31/19 14:09 Dextrose IVPB 100 mls/hr Q4H-IV [facility] Administration Protocol Insulin Aspart 1 vial 08/27/19 16:30 08/31/19 06:44 Novolog Vial Sliding Scale - SQ Not Given TIDAC [facility] Protocol Levothyroxine Sodium 75 mcg 08/28/19 07:00 08/31/19 06:30 Synthroid - PO 75 mcg ACBK@0700 [facility] Administration Polyethylene Glycol 17 gm 08/27/19 22:00 08/31/19 14:09 Miralax (For Daily Use) - PO 17 gm TID [facility] Administration Quetiapine Fumarate 50 mg/ 75 mg 08/27/19 22:00 08/31/19 10:03 Quetiapine Fumarate 25 mg PO 75 mg BID [facility] Administration Rivaroxaban 15 mg 08/27/19 18:00 08/30/19 17:12 Xarelto PO 15 mg DAILY@1800 [facility] Administration Senna 2 tab 08/27/19 15:19 Senna - PO HS PRN CONSTIPATION Valsartan 40 mg 09/01/19 10:00 Diovan - PO DAILY [facility] Impression JENNYFER hyperkalemia HTN HLD DM CAD s/p 7 stents afib on Xarelto systolic CHF CKD COPD on home o2 hypothyroidism schizophrenia Plan - renal function improved - cont lasix - avoid nsaids - avoid nephrotoxins - monitor volume status - will follow PRN
--- NOTE | 2019-08-31 17:40 | PN ---
Progress Note, Physician History of Present Illness: SUPINE IN BED CONFUSED OFFERS NO COMPLAINTS AFEBRILE RENAL FUNCTION IMPROVED REPEAT BC OBTAINED - Current Medication List Current Medications: Active Medications Al Hydroxide/Mg Hydroxide (Mylanta Oral Suspension -) 30 ml PO Q6H PRN PRN Reason: DYSPEPSIA Albuterol/Ipratropium (Duoneb -) 1 amp NEB RQID [facility] Last Admin: 08/31/19 16:50 Dose: 1 amp Atorvastatin Calcium (Lipitor -) 10 mg PO HS [facility] Last Admin: 08/30/19 21:32 Dose: 10 mg Carvedilol (Coreg -) 3.125 mg PO BID [facility] Last Admin: 08/31/19 10:03 Dose: 3.125 mg Docusate Sodium (Colace -) 100 mg PO TID [facility] Last Admin: 08/31/19 14:09 Dose: 100 mg Furosemide (Lasix -) 20 mg PO DAILY [facility] Nafcillin Sodium 2 gm/ (Dextrose) 100 mls @ 100 mls/hr IVPB Q4H-IV [facility]; Protocol Last Admin: 08/31/19 14:09 Dose: 100 mls/hr Insulin Aspart (Novolog Vial Sliding Scale -) 1 vial SQ TIDAC [facility]; Protocol Last Admin: 08/31/19 06:44 Dose: Not Given Levothyroxine Sodium (Synthroid -) 75 mcg PO ACBK@0700 [facility] Last Admin: 08/31/19 06:30 Dose: 75 mcg Polyethylene Glycol (Miralax (For Daily Use) -) 17 gm PO TID [facility] Last Admin: 08/31/19 14:09 Dose: 17 gm Quetiapine Fumarate 50 mg/ (Quetiapine Fumarate 25 mg) 75 mg PO BID [facility] Last Admin: 08/31/19 10:03 Dose: 75 mg Rivaroxaban (Xarelto) 15 mg PO DAILY@1800 [facility] Last Admin: 08/30/19 17:12 Dose: 15 mg Senna (Senna -) 2 tab PO HS PRN PRN Reason: CONSTIPATION Valsartan (Diovan -) 40 mg PO DAILY [facility] - Objective Vital Signs: Vital Signs Temperature 97.5 F L 08/31/19 14:00 Pulse Rate 61 08/31/19 14:00 Respiratory Rate 20 08/31/19 14:00 Blood Pressure 109/53 L 08/31/19 14:00 O2 Sat by Pulse Oximetry (%) 98 08/30/19 20:59 Constitutional: Yes: No Distress Eyes: Yes: Conjunctiva Clear Cardiovascular: Yes: Regular Rate and Rhythm, S1, S2 Respiratory: Yes: Other (+ CREPITATIONS, BASES) Gastrointestinal: Yes: Normal Bowel Sounds, Soft. No: Tenderness Extremities: Yes: Other (+ ABRASION R LE) Labs: CBC, BMP 08/31/19 05:40 08/31/19 06:00 INR, PTT INR 2.69 (0.83-1.09) H 08/24/19 21:27 Assessment/Plan STAPH BACTEREMIA MSSA ? SKIN SOURCE TOXIC METABOLIC ENCEPHALOPATHY IMPROVED AZOTEMIA IMPROVED REPEAT BC PENDING CONTINUE NAFCILLIN
[2019-08-31] MEDS: RIVAROXABAN 15 MG TABLET PO SCH (18:26)
--- NOTE | 2019-08-31 19:00 | CONS ---
INFECTIOUS DISEASE CONSULTATION DATE OF CONSULTATION: DATE OF DICTATION: 08/26/2019 HISTORY: The patient is an 84-year-old male who is evaluated for positive blood cultures. History was obtained from the chart as he cannot give a history of secondary to his confused mental status. The patient is a [facility] resident. According to the notes, he is normally alert and oriented. At the [facility], he was noted to be hypoglycemic and confused. He began to shake. He was taken to the emergency room where his course was complicated by fever to 102.2. Initial workup showed positive blood cultures for gram-positive cocci in clusters, presumed MSSA. At the present time, he is confused. He is unable to give any history. No reports of any infected skin wounds or cellulitis. PAST MEDICAL HISTORY: Positive for dementia, hypertension, hyperlipidemia, coronary artery disease, COPD, congestive heart failure, atrial fibrillation, diabetes mellitus, BPH, hypothyroidism. ALLERGIES: No known allergies. MEDICATIONS: Include albuterol, Lipitor, Colace, Lasix, Synthroid, Xarelto, vancomycin, Zosyn. SOCIAL HISTORY: prison resident. Normally alert and oriented. Wheelchair bound. SYSTEMS REVIEW: Neurologic: No loss of consciousness, seizure activity, or focal weakness. Cardiac: Negative chest pain or palpitations. Respiratory: Positive for tachypnea. No cough or sputum production. Gastrointestinal: Negative vomiting or diarrhea. Genitourinary: Negative for urinary tract infection. LABORATORY DATA: White count 6.5, hematocrit 29.8, platelets 216, creatinine 2.0, lactic acid 2.6. Blood cultures preliminary MSSA. Urinalysis negative. Chest x-ray negative for acute infiltrate. Flu swab negative. PHYSICAL EXAMINATION: General: He is awake in bed. He is confused. Vital Signs: Temperature 98.4, maximum temperature 102.2, blood pressure 88/53, pulse 68 regular, respirations 20 per minute. HEENT: Sclerae anicteric. Heart: Sounds S1, S2. Lungs: Diminished at the bases bilaterally. Abdomen: Soft. No tenderness elicited. Extremities: Negative for edema. Skin: There are some superficial abrasions, which are dry present on the lower extremities. IMPRESSION: 1. Staphylococcal bacteremia, possible skin source. 2. Toxic metabolic encephalopathy. 3. Hypotension, hyperglycemia likely secondary to sepsis. 4. Possible pneumonia. PLAN: Await identification of blood isolate. Antibiotic coverage with vancomycin and Zosyn. Further recommendations pending culture results. We will follow. Thank you for the kind referral. MARYJO MILES M.D. [id number]
[2019-08-31] MEDS: QUEtiapine FUMARATE 25 MG TABLET (FP) PO SCH (22:52)
[2019-08-31] MEDS: ATORVASTATIN CA 10 MG TABLET (FP) PO SCH (22:52)
[2019-08-31] MEDS ORDERED: INSULIN (NOVOLOG) ASPART 100 UNITS/ML 10ML VIAL SQ ONE (23:38)
[2019-09-01] MEDS ORDERED: PT OWN MED DRAWER 7, Y5N ONE ×3 (00:14→16:38)
[2019-09-01] MEDS ORDERED: INSULIN (NOVOLOG) ASPART 100 UNITS/ML 10ML VIAL ONE (00:16)
[2019-09-01] MEDS: NAFCILLIN - 2 GM in DEXTROSE 5%-WATER - 100 ML IVPB SCH ×6 (02:50→21:25)
[2019-09-01] MEDS: INSULIN SLIDING SCALE (NOVOLOG) 1 VIAL SQ SCH ×3 (06:11→17:12)
[2019-09-01] MEDS: LEVOTHYROXINE NA 75 MCG TABLET (FP) PO SCH (06:15)
[2019-09-01] MEDS: DOCUSATE SODIUM 100 MG CAPSULE (FP) PO SCH ×3 (06:15→21:24)
[2019-09-01] MEDS: POLYETHYLENE GLYCOL 3350 119 GM BTL PO SCH ×3 (06:15→21:23)
[2019-09-01] MEDS ORDERED: SODIUM CHLORIDE 0.9% 500 ML INFUS.BAG IV ONE (06:36)
[2019-09-01] MEDS: ALBUTEROL SO4 2.5/IPRATROPIUM 0.5 INH SOL 3 ML VIAL.NEB. NEB SCH ×4 (08:24→20:40)
--- NOTE | 2019-09-01 08:32 | PN ---
Progress Note (short form) - Note Progress Note: Chief Complaint: Events noted, notes reviewed, awake and alert, denies any chest pain or dyspnea, in no distress History of Present Illness: Seen and examined. Events noted, notes reviewed, awake and alert, denies any chest pain or dyspnea, in no distress Medications: Current Medications Al Hydroxide/Mg Hydroxide (Mylanta Oral Suspension -) 30 ml PO Q6H PRN PRN Reason: DYSPEPSIA Albuterol/Ipratropium (Duoneb -) 1 amp NEB RQID [facility] Last Admin: 09/01/19 11:45 Dose: 1 amp Atorvastatin Calcium (Lipitor -) 10 mg PO HS [facility] Last Admin: 08/31/19 22:52 Dose: 10 mg Carvedilol (Coreg -) 3.125 mg PO BID [facility] Last Admin: 09/01/19 10:07 Dose: 3.125 mg Docusate Sodium (Colace -) 100 mg PO TID [facility] Last Admin: 09/01/19 06:15 Dose: 100 mg Furosemide (Lasix -) 20 mg PO DAILY [facility] Last Admin: 09/01/19 10:07 Dose: 20 mg Nafcillin Sodium 2 gm/ (Dextrose) 100 mls @ 100 mls/hr IVPB Q4H-IV [facility]; Protocol Last Admin: 09/01/19 10:07 Dose: 100 mls/hr Insulin Aspart (Novolog Vial Sliding Scale -) 1 vial SQ TIDAC [facility]; Protocol Last Admin: 09/01/19 12:18 Dose: 6 units Levothyroxine Sodium (Synthroid -) 75 mcg PO ACBK@0700 [facility] Last Admin: 09/01/19 06:15 Dose: 75 mcg Polyethylene Glycol (Miralax (For Daily Use) -) 17 gm PO TID [facility] Last Admin: 09/01/19 06:15 Dose: 17 gm Quetiapine Fumarate (Seroquel -) 75 mg PO BID [facility] Last Admin: 09/01/19 10:07 Dose: 75 mg Rivaroxaban (Xarelto) 15 mg PO DAILY@1800 [facility] Last Admin: 08/31/19 18:26 Dose: 15 mg Senna (Senna -) 2 tab PO HS PRN PRN Reason: CONSTIPATION Valsartan (Diovan -) 40 mg PO DAILY [facility] Last Admin: 09/01/19 10:07 Dose: 40 mg Vital Signs: Last Vital Signs Temp Pulse Resp BP Pulse Ox 97.4 F L 60 20 92/52 L 98 09/01/19 09:00 09/01/19 09:00 09/01/19 10:00 09/01/19 09:00 09/01/19 10:00 Intake & Output 08/29/19 08/30/19 08/31/19 09/01/19 23:59 23:59 23:59 23:59 Intake Total 997 448 1564 200 Output Total 1300 0913 859 7789 Balance -480 -780 350 -800 Weight 135 lb 135 lb Neck: Supple Negative JVD No Bruit Respiratory: Diminished Breath Sounds at the Bases Cardiovascular: S1 S2 Regularly Rate and Rhythm Grade 2-3/6 SM Gastrointestinal: Soft Benign Normal Bowel Sounds Ext: Negative Edema Labs: CBC, BMP 08/31/19 05:40 08/31/19 06:00 Hepatic Panel Total Bilirubin 1.0 mg/dL (0.2-1) 08/31/19 06:00 Direct Bilirubin 0.6 mg/dL (0.0-0.2) H 08/26/19 07:48 AST 74 U/L (15-37) H 08/31/19 06:00 ALT 89 U/L (13-61) H 08/31/19 06:00 Alkaline Phosphatase 123 U/L (45-117) H 08/31/19 06:00 Albumin 2.9 g/dl (3.4-5.0) L 08/31/19 06:00 INR, PTT INR 2.69 (0.83-1.09) H 08/24/19 21:27 Assessment/Plan ASSESSMENT: 1. MSSA sepsis/pneumonia, resolving 2. Acute on chronic class II-III NYHA classification LV systolic/diastolic failure, clinically resolving 3. CAD post PCI/stent with demand ischemia referable to #1, angina pectoris 4. Paroxysmal atrial fibrillation [id number] 6 on A/C with DOAC's/Xarelto 5. AV block post PPM 6. AV stenosis moderate to severe by valve area but moderate based on gradient, probable low output/low gradient 7. HTN 8. DM 9. Hypercholesterolemia 10. hypothyroidism 11. COPD on home O2 12. Non-oliguric acute kidney injury with hyperkalemia improving, pre-renal azotemia referable to sepsis- resolving 13. Anemia 14. Toxic metabolic encephelopathy improved 15. Schizophrenia PLAN: 1. Continue Coreg and titrate dosage as needed and tolerated, hemodynamics permitting 2. Continue Diovan with caution and close monitoring of renal function and titrate dosage as needed and tolerated, hemodynamics permitting 3. Continue Xarelto with caution and close monitoring of Hg, transfuse to maintain Hg equal or > 8.0 4. Diuretics/Lasix with close monitoring of renal function 5. Continue Lipitor 6. Antibiotics as per ID service Vasquez Huynh M.D.
[2019-09-01] MEDS: FUROSEMIDE 20 MG TABLET (FP) PO SCH (10:07)
[2019-09-01] MEDS: CARVEDILOL 3.125 MG TABLET (FP) PO SCH ×2 (10:07→21:24)
[2019-09-01] MEDS: QUEtiapine FUMARATE 25 MG TABLET (FP) PO SCH ×2 (10:07→21:23)
[2019-09-01] MEDS: VALSARTAN 40 MG TABLET (FP) PO SCH (10:07)
--- NOTE | 2019-09-01 11:56 | PN ---
Progress Note, Physician Chief Complaint: ASLEEP NO CHANGES OVERNIGHT IN BED WITH 02NC - Current Medication List Current Medications: Active Medications Al Hydroxide/Mg Hydroxide (Mylanta Oral Suspension -) 30 ml PO Q6H PRN PRN Reason: DYSPEPSIA Albuterol/Ipratropium (Duoneb -) 1 amp NEB RQID [facility] Last Admin: 09/01/19 11:45 Dose: 1 amp Atorvastatin Calcium (Lipitor -) 10 mg PO HS [facility] Last Admin: 08/31/19 22:52 Dose: 10 mg Carvedilol (Coreg -) 3.125 mg PO BID [facility] Last Admin: 09/01/19 10:07 Dose: 3.125 mg Docusate Sodium (Colace -) 100 mg PO TID [facility] Last Admin: 09/01/19 06:15 Dose: 100 mg Furosemide (Lasix -) 20 mg PO DAILY [facility] Last Admin: 09/01/19 10:07 Dose: 20 mg Nafcillin Sodium 2 gm/ (Dextrose) 100 mls @ 100 mls/hr IVPB Q4H-IV [facility]; Protocol Last Admin: 09/01/19 10:07 Dose: 100 mls/hr Insulin Aspart (Novolog Vial Sliding Scale -) 1 vial SQ TIDAC [facility]; Protocol Last Admin: 09/01/19 06:11 Dose: Not Given Levothyroxine Sodium (Synthroid -) 75 mcg PO ACBK@0700 [facility] Last Admin: 09/01/19 06:15 Dose: 75 mcg Polyethylene Glycol (Miralax (For Daily Use) -) 17 gm PO TID [facility] Last Admin: 09/01/19 06:15 Dose: 17 gm Quetiapine Fumarate (Seroquel -) 75 mg PO BID [facility] Last Admin: 09/01/19 10:07 Dose: 75 mg Rivaroxaban (Xarelto) 15 mg PO DAILY@1800 [facility] Last Admin: 08/31/19 18:26 Dose: 15 mg Senna (Senna -) 2 tab PO HS PRN PRN Reason: CONSTIPATION Valsartan (Diovan -) 40 mg PO DAILY [facility] Last Admin: 09/01/19 10:07 Dose: 40 mg - Objective Vital Signs: Vital Signs Temperature 97.4 F L 09/01/19 09:00 Pulse Rate 60 09/01/19 09:00 Respiratory Rate 20 09/01/19 10:00 Blood Pressure 92/52 L 09/01/19 09:00 O2 Sat by Pulse Oximetry (%) 98 09/01/19 10:00 Constitutional: Yes: Mild Distress Cardiovascular: Yes: Pulse Irregular Respiratory: Yes: Diminished, On Nasal O2 Gastrointestinal: Yes: Soft Genitourinary: Yes: Incontinence Musculoskeletal: Yes: Muscle Weakness Labs: CBC, BMP 08/31/19 05:40 08/31/19 06:00 INR, PTT INR 2.69 (0.83-1.09) H 08/24/19 21:27 Problem List - Problems (1) JENNYFER (acute kidney injury) Code(s): N17.9 - ACUTE KIDNEY FAILURE, UNSPECIFIED (2) Acute on chronic systolic CHF (congestive heart failure), NYHA class 1 Code(s): I50.23 - ACUTE ON CHRONIC SYSTOLIC (CONGESTIVE) HEART FAILURE (3) Bacteremia Code(s): R78.81 - BACTEREMIA (4) History of permanent cardiac pacemaker placement Code(s): Z95.0 - PRESENCE OF CARDIAC PACEMAKER (5) Lactic acidosis Code(s): E87.2 - ACIDOSIS (6) Pneumonia Code(s): J18.9 - PNEUMONIA, UNSPECIFIED ORGANISM Qualifiers: Pneumonia type: due to unspecified organism Laterality: bilateral Lung location: lower lobe of lung Qualified Code(s): J18.9 - Pneumonia, unspecified organism (7) Sepsis Code(s): A41.9 - SEPSIS, UNSPECIFIED ORGANISM (8) Atrial fibrillation with controlled ventricular rate Code(s): I48.91 - UNSPECIFIED ATRIAL FIBRILLATION (9) COPD (chronic obstructive pulmonary disease) Code(s): J44.9 - CHRONIC OBSTRUCTIVE PULMONARY DISEASE, UNSPECIFIED Qualifiers: COPD type: unspecified COPD Qualified Code(s): J44.9 - Chronic obstructive pulmonary disease, unspecified Assessment/Plan IV ABX PER ID IVF RENAL EVAL NEED OUTLINED ADVANCED DIRECTIVE WITH FAMILY DVT PROPHYLAXIS CARDIO/PULM EVAL APPRECIATED NEBS/02 SUPPORT
[2019-09-01] MEDS: RIVAROXABAN 15 MG TABLET PO SCH (18:21)
[2019-09-01] MEDS: ATORVASTATIN CA 10 MG TABLET (FP) PO SCH (21:24)
[2019-09-02] MEDS ORDERED: PT OWN MED DRAWER 7, Y5N ONE ×5 (02:07→22:39)
[2019-09-02] MEDS: NAFCILLIN - 2 GM in DEXTROSE 5%-WATER - 100 ML IVPB SCH ×6 (02:12→22:45)
[2019-09-02] MEDS: POLYETHYLENE GLYCOL 3350 119 GM BTL PO SCH ×3 (06:13→22:45)
[2019-09-02] MEDS: DOCUSATE SODIUM 100 MG CAPSULE (FP) PO SCH ×3 (06:13→22:45)
[2019-09-02 06:28] LABS: HEMATOCRIT 31.4 % (35.4-49); HEMOGLOBIN 10.4 GM/dL (11.7-16.9); MCH 32.8 pg (25.7-33.7); MCHC 33.1 g/dl (32.0-35.9); MEAN CELL VOLUME 99.2 fl (80-96); MEAN PLT VOLUME 8.6 fl (7.5-11.1); PLATELET COUNT 356 K/MM3 (134-434); RBC 3.16 M/mm3 (4.00-5.60); WHITE BLOOD COUNT 7.1 K/mm3 (4.0-10.0)
[2019-09-02] MEDS: INSULIN SLIDING SCALE (NOVOLOG) 1 VIAL SQ SCH ×4 (06:32→16:59)
[2019-09-02] MEDS: LEVOTHYROXINE NA 75 MCG TABLET (FP) PO SCH (06:33)
[2019-09-02 06:47] LABS: ALBUMIN 2.8 g/dl (3.4-5.0); BILIRUBIN,TOTAL 1.8 mg/dL (0.2-1); BLOOD UREA NITROGEN 31.6 mg/dL (7-18); CALCIUM 8.5 mg/dL (8.5-10.1); CREATININE 1.6 mg/dL (0.55-1.3); MAGNESIUM 2.4 mg/dL (1.8-2.4); POTASSIUM 4.7 mmol/L (3.5-5.1)
--- NOTE | 2019-09-02 08:03 | PN ---
Progress Note (short form) - Note Progress Note: Chief Complaint: Events noted, notes reviewed, awake and alert, denies any chest pain or dyspnea, in no distress History of Present Illness: Seen and examined. Events noted, notes reviewed, awake and alert, denies any chest pain or dyspnea, in no distress Medications: Current Medications Al Hydroxide/Mg Hydroxide (Mylanta Oral Suspension -) 30 ml PO Q6H PRN PRN Reason: DYSPEPSIA Albuterol/Ipratropium (Duoneb -) 1 amp NEB RQID [facility] Last Admin: 09/01/19 20:40 Dose: 1 amp Atorvastatin Calcium (Lipitor -) 10 mg PO HS [facility] Last Admin: 09/01/19 21:24 Dose: 10 mg Carvedilol (Coreg -) 3.125 mg PO BID [facility] Last Admin: 09/01/19 21:24 Dose: Not Given Docusate Sodium (Colace -) 100 mg PO TID [facility] Last Admin: 09/02/19 06:13 Dose: Not Given Furosemide (Lasix -) 20 mg PO DAILY [facility] Last Admin: 09/01/19 10:07 Dose: 20 mg Nafcillin Sodium 2 gm/ (Dextrose) 100 mls @ 100 mls/hr IVPB Q4H-IV [facility]; Protocol Last Admin: 09/02/19 06:32 Dose: 100 mls/hr Insulin Aspart (Novolog Vial Sliding Scale -) 1 vial SQ TIDAC [facility]; Protocol Last Admin: 09/02/19 06:32 Dose: 2 units Levothyroxine Sodium (Synthroid -) 75 mcg PO ACBK@0700 [facility] Last Admin: 09/02/19 06:33 Dose: 75 mcg Polyethylene Glycol (Miralax (For Daily Use) -) 17 gm PO TID [facility] Last Admin: 09/02/19 06:13 Dose: Not Given Quetiapine Fumarate (Seroquel -) 75 mg PO BID [facility] Last Admin: 09/01/19 21:23 Dose: 75 mg Rivaroxaban (Xarelto) 15 mg PO DAILY@1800 [facility] Last Admin: 09/01/19 18:21 Dose: 15 mg Senna (Senna -) 2 tab PO HS PRN PRN Reason: CONSTIPATION Valsartan (Diovan -) 40 mg PO DAILY [facility] Last Admin: 09/01/19 10:07 Dose: 40 mg Review of Systems - Review of Systems Constitutional: no symptoms reported Respiratory: denies: Cough or Sputum Production Cardiovascular: as noted above Gastrointestinal: denies Nausea, Vomiting, Diarrhea, Constipation or Abdominal Pain Genitourinary: no symptoms reported Musculoskeletal: no symptoms reported Endocrine: no symptoms reported Vital Signs: Last Vital Signs Temp Pulse Resp BP Pulse Ox 97.9 F 60 20 91/57 L 95 09/02/19 05:58 09/01/19 20:09 09/02/19 05:58 09/02/19 05:58 09/01/19 20:09 Intake & Output 08/30/19 08/31/19 09/01/19 09/02/19 23:59 23:59 23:59 23:59 Intake Total 620 1150 940 540 Output Total 6433 845 7643 Balance -780 350 -60 540 Weight 135 lb 135 lb Neck: Supple Negative JVD No Bruit Respiratory: Diminished Breath Sounds at the Bases Cardiovascular: S1 S2 Regularly Rate and Rhythm Grade 2-3/6 SM Gastrointestinal: Soft Benign Normal Bowel Sounds Ext: Negative Edema Labs: CBC, BMP 09/02/19 05:10 09/02/19 05:10 Hepatic Panel Total Bilirubin 1.8 mg/dL (0.2-1) H 09/02/19 05:10 Direct Bilirubin 0.6 mg/dL (0.0-0.2) H 08/26/19 07:48 AST 31 U/L (15-37) 09/02/19 05:10 ALT 49 U/L (13-61) 09/02/19 05:10 Alkaline Phosphatase 107 U/L (45-117) 09/02/19 05:10 Albumin 2.8 g/dl (3.4-5.0) L 09/02/19 05:10 INR, PTT INR 2.69 (0.83-1.09) H 08/24/19 21:27 Assessment/Plan ASSESSMENT: 1. MSSA sepsis/pneumonia, resolving 2. Acute on chronic class II-III NYHA classification LV systolic/diastolic failure, clinically resolving 3. CAD post PCI/stent with demand ischemia referable to #1, angina pectoris 4. Paroxysmal atrial fibrillation [id number] 6 on A/C with DOAC's/Xarelto 5. AV block post PPM 6. AV stenosis moderate to severe by valve area but moderate based on gradient, probable low output/low gradient 7. HTN 8. DM 9. Hypercholesterolemia 10. hypothyroidism 11. COPD on home O2 12. Non-oliguric acute kidney injury with hyperkalemia improved, pre-renal azotemia referable to sepsis- resolving 13. Anemia 14. Toxic metabolic encephelopathy improved 15. Schizophrenia PLAN: 1. Continue Coreg and titrate dosage as needed and tolerated, hemodynamics permitting 2. Continue Diovan with caution and close monitoring of renal function and titrate dosage as needed and tolerated, hemodynamics permitting 3. Continue Xarelto with caution and close monitoring of Hg, transfuse to maintain Hg equal or > 8.0 4. Diuretics/Lasix with close monitoring of renal function 5. Continue Lipitor 6. Antibiotics as per ID service Vasquez Huynh M.D.
[2019-09-02] MEDS: ALBUTEROL SO4 2.5/IPRATROPIUM 0.5 INH SOL 3 ML VIAL.NEB. NEB SCH ×4 (08:16→20:35)
[2019-09-02] MEDS: VALSARTAN 40 MG TABLET (FP) PO SCH (09:52)
[2019-09-02] MEDS: CARVEDILOL 3.125 MG TABLET (FP) PO SCH ×2 (09:52→22:44)
[2019-09-02] MEDS: FUROSEMIDE 20 MG TABLET (FP) PO SCH (09:52)
[2019-09-02] MEDS: QUEtiapine FUMARATE 25 MG TABLET (FP) PO SCH ×2 (09:52→22:44)
--- NOTE | 2019-09-02 10:35 | PN ---
Progress Note, Physician Chief Complaint: PATIENT NOW DNR/DNI NO NEW EVENTS - Current Medication List Current Medications: Active Medications Al Hydroxide/Mg Hydroxide (Mylanta Oral Suspension -) 30 ml PO Q6H PRN PRN Reason: DYSPEPSIA Albuterol/Ipratropium (Duoneb -) 1 amp NEB RQID [facility] Last Admin: 09/02/19 08:16 Dose: 1 amp Atorvastatin Calcium (Lipitor -) 10 mg PO HS [facility] Last Admin: 09/01/19 21:24 Dose: 10 mg Carvedilol (Coreg -) 3.125 mg PO BID [facility] Last Admin: 09/02/19 09:52 Dose: 3.125 mg Docusate Sodium (Colace -) 100 mg PO TID [facility] Last Admin: 09/02/19 06:13 Dose: Not Given Furosemide (Lasix -) 20 mg PO DAILY [facility] Last Admin: 09/02/19 09:52 Dose: 20 mg Nafcillin Sodium 2 gm/ (Dextrose) 100 mls @ 100 mls/hr IVPB Q4H-IV [facility]; Protocol Last Admin: 09/02/19 09:52 Dose: 100 mls/hr Insulin Aspart (Novolog Vial Sliding Scale -) 1 vial SQ TIDAC [facility]; Protocol Last Admin: 09/02/19 06:32 Dose: 2 units Levothyroxine Sodium (Synthroid -) 75 mcg PO ACBK@0700 [facility] Last Admin: 09/02/19 06:33 Dose: 75 mcg Polyethylene Glycol (Miralax (For Daily Use) -) 17 gm PO TID [facility] Last Admin: 09/02/19 06:13 Dose: Not Given Quetiapine Fumarate (Seroquel -) 75 mg PO BID [facility] Last Admin: 09/02/19 09:52 Dose: 75 mg Rivaroxaban (Xarelto) 15 mg PO DAILY@1800 [facility] Last Admin: 09/01/19 18:21 Dose: 15 mg Senna (Senna -) 2 tab PO HS PRN PRN Reason: CONSTIPATION Valsartan (Diovan -) 40 mg PO DAILY [facility] Last Admin: 09/02/19 09:52 Dose: 40 mg - Objective Vital Signs: Vital Signs Temperature 97.9 F 09/02/19 09:00 Pulse Rate 59 L 09/02/19 09:00 Respiratory Rate 20 09/02/19 10:00 Blood Pressure 106/58 L 09/02/19 09:00 O2 Sat by Pulse Oximetry (%) 95 09/02/19 10:00 Constitutional: Yes: Mild Distress Cardiovascular: Yes: Pulse Irregular Respiratory: Yes: Diminished Gastrointestinal: Yes: Soft Genitourinary: Yes: Incontinence Musculoskeletal: Yes: Muscle Weakness Extremities: Yes: Other Edema: Yes Peripheral Pulses WNL: Yes Integumentary: Yes: Rash, Venous Stasis Changes Neurological: Yes: Pre-Existing Deficit ...Motor Strength: LLE, RLE Psychiatric: Yes: Other Labs: CBC, BMP 09/02/19 05:10 09/02/19 05:10 INR, PTT INR 2.69 (0.83-1.09) H 08/24/19 21:27 Problem List - Problems (1) JENNYFER (acute kidney injury) Code(s): N17.9 - ACUTE KIDNEY FAILURE, UNSPECIFIED (2) Acute on chronic systolic CHF (congestive heart failure), NYHA class 1 Code(s): I50.23 - ACUTE ON CHRONIC SYSTOLIC (CONGESTIVE) HEART FAILURE (3) Bacteremia Code(s): R78.81 - BACTEREMIA (4) History of permanent cardiac pacemaker placement Code(s): Z95.0 - PRESENCE OF CARDIAC PACEMAKER (5) Lactic acidosis Code(s): E87.2 - ACIDOSIS (6) Pneumonia Code(s): J18.9 - PNEUMONIA, UNSPECIFIED ORGANISM Qualifiers: Pneumonia type: due to unspecified organism Laterality: bilateral Lung location: lower lobe of lung Qualified Code(s): J18.9 - Pneumonia, unspecified organism (7) Sepsis Code(s): A41.9 - SEPSIS, UNSPECIFIED ORGANISM (8) Atrial fibrillation with controlled ventricular rate Code(s): I48.91 - UNSPECIFIED ATRIAL FIBRILLATION (9) COPD (chronic obstructive pulmonary disease) Code(s): J44.9 - CHRONIC OBSTRUCTIVE PULMONARY DISEASE, UNSPECIFIED Qualifiers: COPD type: unspecified COPD Qualified Code(s): J44.9 - Chronic obstructive pulmonary disease, unspecified Assessment/Plan IV ABX PER ID ON NAFICILLIN IVF RENAL EVAL NEED OUTLINED ADVANCED DIRECTIVE WITH FAMILY DVT PROPHYLAXIS CARDIO/PULM EVAL APPRECIATED NEBS/02 SUPPORT DNR/DNI
[2019-09-02] MEDS: RIVAROXABAN 15 MG TABLET PO SCH (17:04)
[2019-09-02] MEDS: ATORVASTATIN CA 10 MG TABLET (FP) PO SCH (22:44)
[2019-09-03 02:01] VITALS: TEMP 97.8
[2019-09-03] MEDS: NAFCILLIN - 2 GM in DEXTROSE 5%-WATER - 100 ML IVPB SCH ×3 (03:00→10:10)
[2019-09-03] MEDS ORDERED: PT OWN MED DRAWER 7, Y5N ONE ×2 (04:23→08:54)
[2019-09-03] MEDS: DOCUSATE SODIUM 100 MG CAPSULE (FP) PO SCH ×2 (05:58→13:19)
[2019-09-03] MEDS: POLYETHYLENE GLYCOL 3350 119 GM BTL PO SCH (05:58)
[2019-09-03] MEDS: INSULIN SLIDING SCALE (NOVOLOG) 1 VIAL SQ SCH ×2 (05:59→11:30)
[2019-09-03] MEDS: LEVOTHYROXINE NA 75 MCG TABLET (FP) PO SCH (05:59)
[2019-09-03 07:04] LABS: HEMATOCRIT 32.7 % (35.4-49); HEMOGLOBIN 10.6 GM/dL (11.7-16.9); MCH 32.2 pg (25.7-33.7); MCHC 32.5 g/dl (32.0-35.9); MEAN CELL VOLUME 98.9 fl (80-96); MEAN PLT VOLUME 8.6 fl (7.5-11.1); PLATELET COUNT 357 K/MM3 (134-434); RBC 3.31 M/mm3 (4.00-5.60); RDW 18.4 % (11.9-15.9); WHITE BLOOD COUNT 5.5 K/mm3 (4.0-10.0)
[2019-09-03 07:30] LABS: BLOOD UREA NITROGEN 32.6 mg/dL (7-18); CALCIUM 8.3 mg/dL (8.5-10.1); CREATININE 1.6 mg/dL (0.55-1.3); POTASSIUM 4.3 mmol/L (3.5-5.1)
--- NOTE | 2019-09-03 07:40 | DS ---
Physical Examination Vital Signs: Vital Signs Temperature 97.8 F 09/03/19 02:00 Pulse Rate 61 09/03/19 02:00 Respiratory Rate 20 09/03/19 02:00 Blood Pressure 95/64 09/03/19 02:00 O2 Sat by Pulse Oximetry (%) 98 09/02/19 21:10 Findings/Remarks: more awake confused still but improved ms Constitutional: Yes: Mild Distress Eyes: Yes: WNL HENT: Yes: WNL Neck: Yes: WNL Cardiovascular: Yes: Pulse Irregular Respiratory: Yes: Diminished, On Nasal O2 Gastrointestinal: Yes: Soft Renal/: Yes: [place] Present Musculoskeletal: Yes: Muscle Weakness Edema: No Wound/Incision: Yes: Dressing Dry and Intact Neurological: Yes: Confusion, Pre-Existing Deficit Labs: CBC, BMP 09/03/19 05:45 09/03/19 05:45 Discharge Summary Problems reviewed: Yes Reason For Visit: ACUTE KIDNEY INJURY, SEPSIS, PNEUMONIA,HYPERKALEMI Current Active Problems JENNYFER (acute kidney injury) (Acute) Acute on chronic systolic CHF (congestive heart failure), NYHA class 1 (Acute) Bacteremia (Acute) Elevated troponin (Acute) History of permanent cardiac pacemaker placement (Acute) Hyperkalemia (Acute) Lactic acidosis (Acute) Pneumonia (Acute) Sepsis (Acute) Shock liver (Acute) Procedures: Principal: CT SCANS/LABS Hospital Course: ADMITTED WITH TOXIC METABOLIC ENCEPHALOPATHY, SEPSIS, MRSA, TX WITH IV ABX, IMPROVED WILL TRANSFER BACK TO [facility] AND GIVE PO ABX Plan of Treatment: AUGMENTIN 500MG BID 7 DAYS Condition: Stable - Instructions Diet, Activity, Other Instructions: 7 DAYS AUMENTIN DYSPHAGIA PUREE DIET Referrals: Flash Candelaria MD [Primary Care Provider] - Disposition: LONG-TERM FACILITY - Home Medications Comprehensive Discharge Medication List: Ambulatory Orders Atorvastatin Ca [Lipitor] 10 mg PO HS 08/25/19 Carvedilol 3.125 mg PO BID 08/25/19 Docusate Sodium [Colace -] 100 mg PO TID 08/25/19 Famotidine [Pepcid -] 40 mg PO DAILY 08/25/19 Furosemide 20 mg PO DAILY 08/25/19 Insulin Detemir [Levemir Flextouch] 16 unit SQ DAILY 08/25/19 Insulin Lispro [Humalog] 100 unit SQ DAILY 08/25/19 Ipratropium/Albuterol Sulfate [Iprat-Albut 0.5-3(2.5) mg/3 ml] 3 ml IH QID 08/25 Levothyroxine [Synthroid -] 75 mcg PO DAILY 08/25/19 Mag Hydrox/Al Hydrox/Simeth [Mylanta *Suspension*] 30 ml PO Q6H 08/25/19 Polyethylene Glycol 3350 [Miralax (For Daily Use) -] 17 gm PO BID 08/25/19 Quetiapine Fumarate [Seroquel -] 25 mg PO BID 08/25/19 Quetiapine Fumarate [Seroquel -] 50 mg PO BID 08/25/19 Rivaroxaban [Xarelto] 20 mg PO DAILY 08/25/19 Sennosides [Senna -] 8.6 mg PO HS 08/25/19 Valsartan 160 mg PO DAILY 08/25/19
[2019-09-03] MEDS ORDERED: AMOX TR/POT CLAV 500MG/125MG TABLETS (FP) PO SCH (08:00)
[2019-09-03] MEDS: ALBUTEROL SO4 2.5/IPRATROPIUM 0.5 INH SOL 3 ML VIAL.NEB. NEB SCH ×2 (08:12→12:34)
[2019-09-03 08:38] VITALS: BP 98/57; PULSE 60
[2019-09-03] MEDS: VALSARTAN 40 MG TABLET (FP) PO SCH (10:10)
[2019-09-03] MEDS: QUEtiapine FUMARATE 25 MG TABLET (FP) PO SCH (10:10)
[2019-09-03] MEDS: CARVEDILOL 3.125 MG TABLET (FP) PO SCH (10:11)
[2019-09-03] MEDS: FUROSEMIDE 20 MG TABLET (FP) PO SCH (10:11)
[2019-09-03] MEDS ORDERED: NAFCILLIN - 2 GM in DEXTROSE 5%-WATER 100 ML IVPB SCH (11:21)
--- NOTE | 2019-09-03 11:21 | PN ---
Progress Note, Physician History of Present Illness: Afebrile, improved to baseline sensorium. - Current Medication List Current Medications: Active Medications Al Hydroxide/Mg Hydroxide (Mylanta Oral Suspension -) 30 ml PO Q6H PRN PRN Reason: DYSPEPSIA Albuterol/Ipratropium (Duoneb -) 1 amp NEB RQID [facility] Last Admin: 09/03/19 08:12 Dose: 1 amp Amoxicillin/Clavulanate Potassium (Augmentin - 500mg Tablet) 1 tab PO BID@0800, 1730 [facility] Last Admin: 09/03/19 10:10 Dose: 1 tab Atorvastatin Calcium (Lipitor -) 10 mg PO HS [facility] Last Admin: 09/02/19 22:44 Dose: 10 mg Carvedilol (Coreg -) 3.125 mg PO BID [facility] Last Admin: 09/03/19 10:11 Dose: 3.125 mg Docusate Sodium (Colace -) 100 mg PO TID [facility] Last Admin: 09/03/19 05:58 Dose: Not Given Furosemide (Lasix -) 20 mg PO DAILY [facility] Last Admin: 09/03/19 10:11 Dose: 20 mg Nafcillin Sodium 2 gm/ (Dextrose) 100 mls @ 100 mls/hr IVPB Q4H-IV [facility]; Protocol Last Admin: 09/03/19 10:10 Dose: 100 mls/hr Insulin Aspart (Novolog Vial Sliding Scale -) 1 vial SQ TIDAC [facility]; Protocol Last Admin: 09/03/19 05:59 Dose: Not Given Levothyroxine Sodium (Synthroid -) 75 mcg PO ACBK@0700 [facility] Last Admin: 09/03/19 05:59 Dose: Not Given Polyethylene Glycol (Miralax (For Daily Use) -) 17 gm PO TID [facility] Last Admin: 09/03/19 05:58 Dose: Not Given Quetiapine Fumarate (Seroquel -) 75 mg PO BID [facility] Last Admin: 09/03/19 10:10 Dose: 75 mg Rivaroxaban (Xarelto) 15 mg PO DAILY@1800 [facility] Last Admin: 09/02/19 17:04 Dose: 15 mg Senna (Senna -) 2 tab PO HS PRN PRN Reason: CONSTIPATION Valsartan (Diovan -) 40 mg PO DAILY [facility] Last Admin: 09/03/19 10:10 Dose: 40 mg - Objective Vital Signs: Vital Signs Temperature 97.8 F 09/03/19 08:36 Pulse Rate 60 09/03/19 08:36 Respiratory Rate 20 09/03/19 08:38 Blood Pressure 98/57 L 09/03/19 08:36 O2 Sat by Pulse Oximetry (%) 98 09/03/19 08:38 Constitutional: Yes: No Distress, Calm, Thin Neck: Yes: Supple Cardiovascular: Yes: Regular Rate and Rhythm Respiratory: Yes: Regular, Diminished, On Nasal O2 Gastrointestinal: Yes: Normal Bowel Sounds, Soft Edema: No Labs: CBC, BMP 09/03/19 05:45 09/03/19 05:45 INR, PTT INR 2.69 (0.83-1.09) H 08/24/19 21:27 - ....Imaging EKG: Report Reviewed (Tele: AV paced @ 60) Problem List - Problems (1) JENNYFER (acute kidney injury) Code(s): N17.9 - ACUTE KIDNEY FAILURE, UNSPECIFIED (2) Pneumonia Code(s): J18.9 - PNEUMONIA, UNSPECIFIED ORGANISM Qualifiers: Pneumonia type: due to unspecified organism Laterality: bilateral Lung location: lower lobe of lung Qualified Code(s): J18.9 - Pneumonia, unspecified organism (3) Anemia Code(s): D64.9 - ANEMIA, UNSPECIFIED (4) Atrial fibrillation with controlled ventricular rate Code(s): I48.91 - UNSPECIFIED ATRIAL FIBRILLATION (5) CHF (congestive heart failure) Code(s): I50.9 - HEART FAILURE, UNSPECIFIED Qualifiers: Heart failure type: combined systolic and diastolic Heart failure chronicity: chronic Qualified Code(s): I50.42 - Chronic combined systolic ( congestive) and diastolic (congestive) heart failure (6) Chronic anticoagulation Code(s): Z79.01 - WELFARE DIRECTOR (CURRENT) USE OF ANTICOAGULANTS (7) Hypercholesterolemia Code(s): E78.00 - PURE HYPERCHOLESTEROLEMIA, UNSPECIFIED (8) Hypothyroid Code(s): E03.9 - HYPOTHYROIDISM, UNSPECIFIED Qualifiers: Hypothyroidism type: unspecified Qualified Code(s): E03.9 - Hypothyroidism , unspecified (9) IDDM (insulin dependent diabetes mellitus) Code(s): E11.9 - TYPE 2 DIABETES MELLITUS WITHOUT COMPLICATIONS; Z79.4 - WELFARE DIRECTOR (CURRENT) USE OF INSULIN (10) Presence of permanent cardiac pacemaker Code(s): Z95.0 - PRESENCE OF CARDIAC PACEMAKER (11) Sleep apnea Code(s): G47.30 - SLEEP APNEA, UNSPECIFIED Qualifiers: Sleep apnea type: unspecified type Qualified Code(s): G47.30 - Sleep apnea , unspecified Assessment/Plan 08/27/2019 Echo: TDS Normal LV size with severe decreased LV fxn, mild MR, TR 08/24 CT abdomen/pelvis without contrast showed "Nodular contour of the liver compatible with cirrhosis. There is large quantity of colonic gas as well as a large stool burden most compatible with constipation. There is thickening of the low rectum; this may be related to underdistention although neoplasm cannot be excluded. Recommend proctoscopy. There is asymmetric wall thickening of the urinary bladder with question of a nodule anteriorly which measures approximately 8 mm. Alternatively this may represent an indentation from an enlarged prostate There is evidence of prior TURP. 07/12/2018 Echo: Normal LV size with mod decreased LV fxn, RV paced, mild ROGER, mild-mod TR, mild MR 1. MSSA sepsis/pneumonia ? skin source 2. Acute on chronic Systolic/diastolic LV failure resolving 3. CAD post PCI/stent, demand ischemia referable to #1 4. Persistent atrial fibrillation [id number] 6 on A/C with DOAC's/Xarelto 5. AV block post PPM 6. HTN 7. DM 8. Hypercholesterolemia 9. COPD on home O2 10. Shock liver resolving 11. Non-oliguric acute kidney injury with hyperkalemia improving, pre-renal azotemia referable to sepsis 12. Anemia 13. Hypothyroidism 14. Lactic acidosis 15. Toxic metabolic encephelopathy improved 16. Schizophrenia PLAN: 1. Narrowed abx per C&S to Nafcillin, trops, LFTs downtrending 2. Continue Coreg 3.125 bid and Diovan 40 qd given hemodynamic stability and renal fxn, hyperkalemia recovery 3. Continue Xarelto 15 qd with caution and close monitoring of Hg, transfuse to maintain Hg equal or > 8.0 4. Continue oral diuresis Lasix 20 qd with monitor diuretic response, renal fxn and electrolytes 5. Continue Lipitor 10 qd, Xarelto 15 qd 6. D/c planning to SNF
== END 2019-09-03 14:34 | DRG 871 ==
LOC: JER 21:07 → JERBED 08-25 02:17 → J6S 08-25 16:26 → J4W 08-27 14:52
PROVIDERS: ADMIT Internal Medicine; ATTEND Family Medicine
DX: A41.9 Sepsis, unspecified organism (principal); J18.9 Pneumonia, unspecified organism; I50.43 Acute on chronic combined systolic (congestive) and diastolic (congestive) heart failure; G93.41 Metabolic encephalopathy; K72.00 Acute and subacute hepatic failure without coma; E87.1 Hypo-osmolality and hyponatremia; N17.9 Acute kidney failure, unspecified; I48.19 Other persistent atrial fibrillation; I24.8 Other forms of acute ischemic heart disease; E87.2 Acidosis; E87.5 Hyperkalemia; E03.9 Hypothyroidism, unspecified; E11.9 Type 2 diabetes mellitus without complications; Z95.5 Presence of coronary angioplasty implant and graft; J44.9 Chronic obstructive pulmonary disease, unspecified; D64.9 Anemia, unspecified; F20.9 Schizophrenia, unspecified; I25.119 Atherosclerotic heart disease of native coronary artery with unspecified angina pectoris
CPT/HCPCS: 36415; 70450-TC; 71045-TC-FY; 74176-TC; 80048; 80053; 80076; 81003; 82272; 82550; 82553; 82607; 82746; 82803; 82962; 83540; 83550; 83605; 83735; 83880; 84100; 84443; 84484; 85025; 85027; 85044; 85610; 85730; 87040; 87081; 87086; 87186; 87804; 87899; 93005; 93010; 93306-TC; 94640; 97161-GP; 99285-25; J0131; J7030

== ENCOUNTER 2019-09-05 11:53 | Inpatient (IN) | payer OTHER, MEDICARE ==
--- NOTE | 2019-09-05 12:16 | PDOC ---
History of Present Illness - General Chief Complaint: Weakness Stated Complaint: Weakness Time Seen by Provider: 09/05/19 12:16 History Source: Custodial Records, Old Records Past History - Past Medical History Allergies/Adverse Reactions: Allergies Allergy/AdvReac Type Severity Reaction Status Date / Time No Known Drug Allergies Allergy Verified 08/24/19 21:17 Home Medications: Ambulatory Orders Atorvastatin Ca [Lipitor] 10 mg PO HS 08/25/19 Carvedilol 3.125 mg PO BID 08/25/19 Docusate Sodium [Colace -] 100 mg PO TID 08/25/19 Famotidine [Pepcid -] 40 mg PO DAILY 08/25/19 Furosemide 20 mg PO DAILY 08/25/19 Insulin Detemir [Levemir Flextouch] 16 unit SQ DAILY 08/25/19 Insulin Lispro [Humalog] 100 unit SQ DAILY 08/25/19 Ipratropium/Albuterol Sulfate [Iprat-Albut 0.5-3(2.5) mg/3 ml] 3 ml IH QID 08/25 Levothyroxine [Synthroid -] 75 mcg PO DAILY 08/25/19 Mag Hydrox/Al Hydrox/Simeth [Mylanta Oral Suspension -] 30 ml PO Q6H 08/25/19 Polyethylene Glycol 3350 [Miralax (For Daily Use) -] 17 gm PO BID 08/25/19 Quetiapine Fumarate [Seroquel -] 25 mg PO BID 08/25/19 Quetiapine Fumarate [Seroquel -] 50 mg PO BID 08/25/19 Rivaroxaban [Xarelto] 20 mg PO DAILY 08/25/19 Sennosides [Senna -] 8.6 mg PO HS 08/25/19 Valsartan 160 mg PO DAILY 08/25/19 Amox-Tr/K Cl [Augmentin 500-125mg Tablet -] 1 tab PO BID@0800,1730 14 Days tablet 09/03/19 Carvedilol [Coreg -] 3.125 mg PO BID tablet 09/03/19 Furosemide [Lasix -] 20 mg PO DAILY tablet 09/03/19 Insulin Sliding Scale [Novolog Vial Sliding Scale -] 1 vial SQ TIDAC units Polyethylene Glycol 3350 [Miralax 119 gm Btl -] 17 gm PO TID bottle 09/03/19 Quetiapine Fumarate [Seroquel -] 75 mg PO BID tablet 09/03/19 Valsartan [Diovan] 40 mg PO DAILY tablet 09/03/19 Anemia: Yes Asthma: No Cancer: Yes (SKIN CANCER) Cardiac Disorders: Yes (CAD, stents, AF) CVA: (? TIA) COPD: Yes CHF: Yes Dementia: No Diabetes: Yes (DM) GI Disorders: Yes Disorders: Yes (URINARY RETENTION; BPH) HTN: Yes Hypercholesterolemia: Yes Liver Disease: No Psychiatric Problems: Yes (depressive) Seizures: No Thyroid Disease: Yes (hypo) - Surgical History Abdominal Surgery: No Appendectomy: No Cardiac Surgery: Yes (7x stents, pacemaker) Cholecystectomy: No Lung Surgery: No Neurologic Surgery: No Orthopedic Surgery: Yes (Right knee sx) - Immunization History Td Vaccination: No TDAP Vaccination: No Immunization Up to Date: Yes - Psycho Social/Smoking Cessation Hx Smoking Status: No Smoking History: Never smoked Years of Tobacco Use: 0 Have you smoked in the past 12 months: No Number of Cigarettes Smoked Daily: 0 Cigars Per Day: 0 Hx Alcohol Use: No Drug/Substance Use Hx: No Substance Use Type: None Hx Substance Use Treatment: No Procedures - Central Line Central Line Lumen: triple Central Line Position: femoral (R) Anesthesia: 1% Lidocaine Amount of anesthesia (ccs): 8 Complications: none Post Central Line Insertion: sutured, good blood return ED Treatment Course - LABORATORY CBC & Chemistry Diagram: 09/05/19 13:00 09/05/19 13:00 Discharge - Follow up/Referral - Patient Discharge Instructions - Post Discharge Activity
[2019-09-05] MEDS ORDERED: ACETAMINOPHEN 325 MG TABLET (FP) PO ONE (12:20)
[2019-09-05] MEDS ORDERED: ACETAMINOPHEN 1000 MG/100 ML VIAL (NON FORMULARY) IVPB ONE (12:50)
[2019-09-05] MEDS ORDERED: ACETAMINOPHEN INJECTION 100 ML IVPB ONE (12:50)
[2019-09-05] MEDS ORDERED: ALBUTEROL SO4 2.5/IPRATROPIUM 0.5 INH SOL 3 ML VIAL.NEB. NEB ONE ×2 (12:50→19:29)
[2019-09-05] MEDS ORDERED: VANCOMYCIN HCL 1,500 MG in DEXTROSE 5%-WATER - 500 ML IVPB ONE (12:57)
[2019-09-05] MEDS ORDERED: PIPERACILLIN/TAZOB 4.5 GM 4.5 GM in DEXTROSE 5%-WATER 100 ML IVPB ONE (12:57)
[2019-09-05 13:41] LABS: BASO % 0.6 % (0-2.0); EOS % 0.1 % (0-4.5); HEMATOCRIT 34.9 % (35.4-49); HEMOGLOBIN 11.3 GM/dL (11.7-16.9); MCH 31.9 pg (25.7-33.7); MCHC 32.2 g/dl (32.0-35.9); MEAN PLT VOLUME 8.7 fl (7.5-11.1); MONO % 4.5 % (3.8-10.2); NEUT % 87.8 % (42.8-82.8); PLATELET COUNT 423 K/MM3 (134-434); RBC 3.53 M/mm3 (4.00-5.60); RDW 18.2 % (11.9-15.9); WHITE BLOOD COUNT 11.2 K/mm3 (4.0-10.0)
--- NOTE | 2019-09-05 13:47 | PDOC ---
Documentation entered by Kelly Castillo SCRIBE, acting as scribe for Kristin Echevarria MD. Kristin Echevarria MD: This documentation has been prepared by the scribe, Kelly Castillo SCRIBE, under my direction and personally reviewed by me in its entirety. I confirm that the documentation accurately reflects all work, treatment, procedures, and medical decision making performed by me. Attending Attestation - Resident Resident Name: Shahriar Hernandez - HPI HPI: 09/05/19 13:23 The patient is an 84-year-old male with a past medical history significant for HTN, HLD, DM, CAD s/p stents, Afib, CHF, COPD, and recent admission for urosepsis and pneumonia (complicated by possible shock liver and metabolic encephalopathy) who presents to the emergency department via EMS for respiratory distress. The patient was noted to be short of breath and sating at 88%. The patient currently is alert and oriented x1, which is the baseline; pt is unable to provide further HPI. Allergies: NKDA - Physicial Exam PE: 09/05/19 13:23 GENERAL: Alert and oriented, appears uncomfortable. LUNGS: +typenic, speaking in 2-3 sentences, crackles at the left lung base. HEART: Regular rate and rhythm. ABDOMEN: Soft, nontender, nondistended. EXTREMITIES: +eschoriation, no edema. NEUROLOGICAL: Alert and oriented x1, moving all extremities, cranial nerves grossly intact. - Critical Care Time Total Critical Care Time: 45 Critical Care Statement: The care of this patient involved high complexity decision making to prevent further life threatening deterioration of the patient 's condition and/or to evaluate & treat vital organ system(s) failure or risk of failure. - Medical Decision Making 09/05/19 15:11 pt presents to the ED with hypoxia and respiratory distress. Became hypotensive during his hospital stay in the ED--sepsis protocol initiated. Will start gentle IV hydration given history of severe CHF and place central line for pressor admininstration. will start broad spectrum abx and admit to ICU.
[2019-09-05] MEDS ORDERED: VANCOMYCIN 500 MG VIAL (RESTRICTED TO ID ONLY) ONE (13:51)
[2019-09-05] MEDS ORDERED: VANCOMYCIN 1 GRAM (PRE-DOCKED) 1,000 MG/250 ML BAG IVPB ONE (13:51)
[2019-09-05] MEDS ORDERED: PIPERACILLIN/TAZOB 4.5 GM 4.5 GM/100 ML BAG IVPB ONE (13:51)
[2019-09-05 13:53] LABS: INR 2.48 (0.83-1.09); PROTHROMBIN TIME (PATIENT) 29.5 SEC (9.7-13.0)
[2019-09-05 13:56] LABS: ACTIVATED PTT 41.8 SECONDS (25.2-36.5)
[2019-09-05 13:59] LABS: VENOUS PC02 33.4 mmHg (38-52); VENOUS PH 7.45 (7.31-7.41)
[2019-09-05 14:00] LABS: VENOUS PO2 < 49 mmHg (28-48)
[2019-09-05 14:03] LABS: ARTERIAL BLD GAS O2 SATURATION 91.9 % (95-98); ARTERIAL BLOOD GAS BASE EXCESS -0.4 meq/l (-2-2); ARTERIAL BLOOD GAS PO2 63.6 mmHg (80-100); ARTERIAL BLOOD GAS pH 7.48 (7.35-7.45); CARBOXYHEMOGLOBIN 1.7 % (0-2)
[2019-09-05 14:04] LABS: ALLENS TEST POSITIVE
[2019-09-05 14:06] LABS: ALBUMIN 3.2 g/dl (3.4-5.0); BILIRUBIN,TOTAL 1.6 mg/dL (0.2-1); CALCIUM 9.1 mg/dL (8.5-10.1); CREATININE 2.3 mg/dL (0.55-1.3); POTASSIUM 5.5 mmol/L (3.5-5.1); TOT PROT 8.3 g/dl (6.4-8.2)
[2019-09-05] MEDS ORDERED: DOPAMINE 400 MG/D5W - 400,000 MCG/250 ML INFUS.BAG IVPB SCH (14:15)
[2019-09-05] MEDS ORDERED: DOPAMINE 400 MG/D5W - 400,000 MCG/250 ML INFUS.BAG IVPB ONE (14:15)
--- NOTE | 2019-09-05 14:55 | HP ---
Admitting History and Physical - Primary Care Physician PCP: Flash Candelaria - Admission Chief Complaint: RESP DISTRESS History of Present Illness: The patient is an 84-year-old male with a past medical history significant for HTN, HLD, DM, CAD s/p stents, Afib, CHF, COPD, and recent admission for urosepsis and pneumonia (complicated by possible shock liver and metabolic encephalopathy) who presents to the emergency department via EMS for respiratory distress. The patient was noted to be short of breath and sating at 88%. The patient currently is alert and oriented x1, which is the baseline; pt is unable to provide further HPI. Allergies: NKDA - Past Medical History Cardiovascular: Yes: AFIB, CAD, CHF, HTN, Hyperlipdemia Pulmonary: Yes: COPD, Sleep Apnea Renal/: Yes: BPH Heme/Onc: Yes: Anemia (macrocytic) Endocrine: Yes: Diabetes Mellitus - Past Surgical History Past Surgical History: Yes: Permanent Pacemaker, TURP - Smoking History Smoking history: Former smoker Have you smoked in the past 12 months: No Aproximately how many cigarettes per day: 0 - Alcohol/Substance Use Hx Alcohol Use: No - Social History ADL: Support Services History of Recent Travel: No Home Medications - Allergies Allergies/Adverse Reactions: Allergies Allergy/AdvReac Type Severity Reaction Status Date / Time No Known Drug Allergies Allergy Verified 08/24/19 21:17 - Home Medications Home Medications: Ambulatory Orders Atorvastatin Ca [Lipitor] 10 mg PO HS 08/25/19 Docusate Sodium [Colace -] 200 mg PO DAILY 08/25/19 Famotidine [Pepcid -] 40 mg PO DAILY 08/25/19 Insulin Detemir [Levemir Flextouch] 16 unit SQ HS 08/25/19 Ipratropium/Albuterol Sulfate [Iprat-Albut 0.5-3(2.5) mg/3 ml] 3 ml IH QID 08/25 Levothyroxine [Synthroid -] 75 mcg PO DAILY 08/25/19 Mag Hydrox/Al Hydrox/Simeth [Mylanta Oral Suspension -] 30 ml PO Q6H 08/25/19 Rivaroxaban [Xarelto] 20 mg PO DAILY 08/25/19 Amox-Tr/K Cl [Augmentin 500-125mg Tablet -] 1 tab PO BID@0800,1730 14 Days tablet 09/03/19 Carvedilol [Coreg -] 3.125 mg PO BID tablet 09/03/19 Furosemide [Lasix -] 20 mg PO DAILY tablet 09/03/19 Quetiapine Fumarate [Seroquel -] 75 mg PO BID tablet 09/03/19 Valsartan [Diovan] 40 mg PO DAILY tablet 09/03/19 Insulin Aspart [Novolog] See Protocol SQ ASDIR 09/05/19 Polyethylene Glycol 3350 [Miralax 119 gm Btl -] 17 gm PO DAILY 09/05/19 Review of Systems - Review of Systems Constitutional: reports: Weakness Cardiovascular: reports: Shortness of Breath Respiratory: reports: SOB, Other Gastrointestinal: reports: Indigestion Genitourinary: reports: Incontinence Physical Examination Vital Signs: Vital Signs Temperature 103.7 F H 09/05/19 12:36 Pulse Rate 110 H 09/05/19 12:34 Respiratory Rate 26 H 09/05/19 12:34 Blood Pressure 72/61 L 09/05/19 14:42 O2 Sat by Pulse Oximetry (%) 94 L 09/05/19 12:36 Cardiovascular: Yes: Pulse Irregular Respiratory: Yes: On Venti-Mask Gastrointestinal: Yes: Soft Renal/: Yes: Incontinence Neurological: Yes: Confusion Labs: CBC, BMP 09/05/19 13:00 09/05/19 13:00 Problem List - Problems (1) JENNYFER (acute kidney injury) Code(s): N17.9 - ACUTE KIDNEY FAILURE, UNSPECIFIED (2) Acute on chronic systolic CHF (congestive heart failure), NYHA class 1 Code(s): I50.23 - ACUTE ON CHRONIC SYSTOLIC (CONGESTIVE) HEART FAILURE (3) Bacteremia Code(s): R78.81 - BACTEREMIA (4) History of permanent cardiac pacemaker placement Code(s): Z95.0 - PRESENCE OF CARDIAC PACEMAKER (5) Hyperkalemia Code(s): E87.5 - HYPERKALEMIA (6) Lactic acidosis Code(s): E87.2 - ACIDOSIS (7) Pneumonia Code(s): J18.9 - PNEUMONIA, UNSPECIFIED ORGANISM Qualifiers: Pneumonia type: due to unspecified organism Laterality: bilateral Lung location: lower lobe of lung Qualified Code(s): J18.9 - Pneumonia, unspecified organism Assessment/Plan IV ABX START FLUIDS DNR ICU ADMISSION PULM CONSULT ADVANCED DIRECTIVES NEEDED
--- NOTE | 2019-09-05 14:56 | CONSULT ---
Consultation: REQUESTING PROVIDER: Dr. Riley CONSULT REQUEST: We have been asked to medically evaluate this patient for hemodynamic instability requiring vasopressor support 2/2 sepsis due to pneumonia. HISTORY OF PRESENT ILLNESS: 84M w/ pmhx of HTN, HLD, DM, CAD s/p stents, Afib, CHF, COPD, and recent admission for MSSA bacteremia with ? skin source presented to the ED from [facility] for hypoxia and acute respiratory distress. Per ED team, pt was reported to have difficulty breathing, satting at 88% on home 2L NC. Upon arrival he was found to be hypotensive at 73/53. Due to significant hx of systolic CHF (last echo 08/27/19 showed severely reduced LVSF, severe global hypokinesis, mild MR/ TR) and bedside US in ED showing distended IVC, fluids were held to avoid volume overload and subsequent worsening resp status. Peripheral dopamine was started and CVC was placed for vasopressor support. Pt seen and assessed upon arrival in ICU. Awake and alert, oriented to person. Unable to elicit further history from patient however he requests that we contact his HCP Antonia Abernathy (daughter) or Glenys Coles (friend). Admits to some chest pain and difficulty breathing. He believes his "heart is very weak." REVIEW OF SYSTEMS: Unable to obtain. PHYSICAL EXAMINATION Vital Signs - 24 hr 09/05/19 09/05/19 09/05/19 12:00 12:34 12:36 Temperature 102.5 F H 103.7 F H 103.7 F H Pulse Rate 110 H Pulse Rate [ 110 H Left Radial] Respiratory 28 H 26 H Rate Blood Pressure 151/110 H Blood Pressure 151/110 H [Left Arm] O2 Sat by Pulse 90 L 90 L 94 L Oximetry (%) 09/05/19 14:42 Temperature Pulse Rate Pulse Rate [ Left Radial] Respiratory Rate Blood Pressure 72/61 L Blood Pressure [Left Arm] O2 Sat by Pulse Oximetry (%) GENERAL: Awake, alert. Responds to name. Answers questions appropriately. HEENT: AT/NC. Cachectic. NECK: Normal range of motion, supple without lymphadenopathy, JVD, or masses. LUNGS: On ventimask, satting at 98%. Barrel chest. Scattered crackles, L > R. HEART: Regular rate and rhythm, normal S1 and S2 without murmur, rub or gallop. ABDOMEN: Soft, nontender, not distended, normoactive bowel sounds, no guarding, no rebound, no masses. MUSCULOSKELETAL: Normal range of motion at all joints. No bony deformities or tenderness. No CVA tenderness. : Arroyo in place. UPPER EXTREMITIES: 2+ pulses, warm, well-perfused. No cyanosis. No clubbing. Cap refill <2 seconds. No peripheral edema. LOWER EXTREMITIES: 2+ pulses, warm, well-perfused. No calf tenderness. No peripheral edema. NEUROLOGICAL: Responds to commands. SKIN: 1 cm diameter stage II sacral decubitus ulcer, non-erythematous, non- draining, non-infectious. 0.5 diameter stage II wound ulcer on lateral aspect of R lower leg, dried blood, no visible drainage/pus. Laboratory Results - last 24 hr 09/05/19 09/05/19 09/05/19 13:00 13:00 13:00 WBC 11.2 H RBC 3.53 L Hgb 11.3 L Hct 34.9 L MCV 99.0 H MCH 31.9 MCHC 32.2 RDW 18.2 H Plt Count 423 MPV 8.7 Absolute Neuts (auto) 9.9 H Neutrophils % 87.8 H D Lymphocytes % 7.0 L D Monocytes % 4.5 Eosinophils % 0.1 D Basophils % 0.6 Nucleated RBC % 0 PT with INR 29.50 H INR 2.48 H PTT (Actin FS) 41.8 H Anticoagulation Therapy Puncture Site ABG pH ABG pCO2 at Pt Temp ABG pO2 at Pt Temp ABG HCO3 ABG O2 Sat (Measured) ABG O2 Content ABG Base Excess Jaret Test VBG pH POC VBG pCO2 POC VBG pO2 VBG HCO3 VBG O2 Sat (Gabriela) VBG Base Excess Carboxyhemoglobin Methemoglobin O2 Delivery Device Oxygen Flow Rate Vent Mode Vent Rate Mechanical Rate Pressure Support Vent Sodium Potassium Chloride Carbon Dioxide Anion Gap BUN Creatinine Est GFR (CKD-EPI)AfAm Est GFR (CKD-EPI)NonAf Random Glucose Lactic Acid Calcium Total Bilirubin AST ALT Alkaline Phosphatase Troponin I 11.10 H* B-Natriuretic Peptide Total Protein Albumin Blood Type Antibody Screen 09/05/19 09/05/19 09/05/19 13:00 13:00 13:00 WBC RBC Hgb Hct MCV MCH MCHC RDW Plt Count MPV Absolute Neuts (auto) Neutrophils % Lymphocytes % Monocytes % Eosinophils % Basophils % Nucleated RBC % PT with INR INR PTT (Actin FS) Anticoagulation Therapy Puncture Site ABG pH ABG pCO2 at Pt Temp ABG pO2 at Pt Temp ABG HCO3 ABG O2 Sat (Measured) ABG O2 Content ABG Base Excess Jaret Test VBG pH POC VBG pCO2 POC VBG pO2 VBG HCO3 VBG O2 Sat (Gabriela) VBG Base Excess Carboxyhemoglobin Methemoglobin O2 Delivery Device Oxygen Flow Rate Vent Mode Vent Rate Mechanical Rate Pressure Support Vent Sodium 136 Potassium 5.5 H Chloride 102 Carbon Dioxide 24 Anion Gap 10 BUN 45.0 H Creatinine 2.3 H Est GFR (CKD-EPI)AfAm 29.13 Est GFR (CKD-EPI)NonAf 25.14 Random Glucose 85 Lactic Acid 5.9 H* Calcium 9.1 Total Bilirubin 1.6 H AST 120 H ALT 50 Alkaline Phosphatase 127 H Troponin I B-Natriuretic Peptide 56146.3 H Total Protein 8.3 H Albumin 3.2 L Blood Type Antibody Screen 09/05/19 09/05/19 09/05/19 13:00 13:30 13:40 WBC RBC Hgb Hct MCV MCH MCHC RDW Plt Count MPV Absolute Neuts (auto) Neutrophils % Lymphocytes % Monocytes % Eosinophils % Basophils % Nucleated RBC % PT with INR INR PTT (Actin FS) Anticoagulation Therapy No Result Required. Puncture Site Right radial ABG pH 7.48 H ABG pCO2 at Pt Temp 30.0 L ABG pO2 at Pt Temp 63.6 L ABG HCO3 22.1 ABG O2 Sat (Measured) 91.9 L ABG O2 Content 12.9 ABG Base Excess -0.4 Jaret Test Positive VBG pH 7.45 H POC VBG pCO2 33.4 L POC VBG pO2 < 49 H VBG HCO3 22.8 L VBG O2 Sat (Gabriela) 63.3 L VBG Base Excess -0.3 Carboxyhemoglobin 1.7 Methemoglobin < 1.0 O2 Delivery Device No Result Required. Oxygen Flow Rate 3l nasal Vent Mode No Result Required. Vent Rate No Result Required. Mechanical Rate No Result Required. Pressure Support Vent No Result Required. Sodium Potassium Chloride Carbon Dioxide Anion Gap BUN Creatinine Est GFR (CKD-EPI)AfAm Est GFR (CKD-EPI)NonAf Random Glucose Lactic Acid Calcium Total Bilirubin AST ALT Alkaline Phosphatase Troponin I B-Natriuretic Peptide Total Protein Albumin Blood Type O POSITIVE Antibody Screen Negative Active Medications Norepinephrine Bitartrate 4, (000 mcg/ Dextrose) 500 mls @ 37.5 mls/hr IV TITR AYDIN; Protocol Piperacillin Sod/Tazobactam (Sod 2.25 gm/ Dextrose) 50 mls @ 100 mls/hr IVPB Q6H-IV AYDIN; Protocol Insulin Aspart (Novolog Vial Sliding Scale -) 1 vial SQ ACHS AYDIN; Protocol Vancomycin HCl (Vancomycin (Pre-Docked)) 1,000 mg IVPB DAILY AYDIN; Protocol Vancomycin HCl (Vancomycin (Pre-Docked)) 1,000 mg IVPB ONCE ONE Stop: 09/06/19 15:01 ASSESSMENT/PLAN: 84M w/ pmhx of HTN, HLD, DM, CAD s/p stents, Afib, CHF, COPD, and recent admission for MSSA bacteremia with ? skin source presented to the ED from [facility] for hypoxia and acute respiratory distress. Neuro Hx of Schizophrenia AAOx1. Baseline mental status. -Hold home Seroquel for now Cardiovascular Acute on chronic systolic HF CAD s/p PCI/stent Elevated trops likely 2/2 septic shock Persistent Afib AV block s/p PPM HTN/HLD -Hold home BP meds (Lasix, Valsartan, Coreg) in setting of hypotension -Trops 11.10, BNP ~70k -Cardio consulted -EKG showed paced rhythm w/ prolonged AV conduction; QTc 587ms, HR 75 Pulmonary Acute Hypoxic Respiratory Failure 2/2 ? PNA vs. CHF exac COPD (on home 2L O2) -Now on ventimask satting 95% -IV Vanc/Zosyn given in ED; will cont with IV Vanc/Zosyn for empiric coverage -Urine leg/s pneumo ordered -Sputum cx ordered GI NPO Renal JENNYFER on CKD Hyperkalemia -Calcium Gluconate, Insulin, D50, Kayexylate -repeat K+ -Nephro consulted ID Sepsis; unknown source ? PNA Recent hx of MSSA Bacteremia 2/2 ? skin source -Initial presentation with O2 88%, temp 102.5 --> 103.7, BP 151/110 --> 70/60, RR 26, lactate 5.9 -Recently discharged on 09/03 with PO Augmentin (previously treated with IV Nafcillin) -IV Vanc/Zosyn given x1 in ED; Will continue with Vanc and Zosyn for empiric coverage -IVf not given in ED given significant systolic dysfunction, will bolus fluid as needed to maintain hemodynamics, MAP >65 -ID consulted -BCx pending -UA/UCx not collected prior to administration of IV abx in ED; will order -CXR showed pleural rxn at L base -trend lactate Endo DM Hypothyroidism -BGM/ISS ACHS Prophylaxis DVT: SCDs FEN -no IVf, if needed, bolus only -recheck lytes in AM (K+) -NPO Dispo -ICU monitoring -Attempted to call HCP, Antonia Abernathy (daughter) and Glenys Lyman (friend); unable to reach or leave voice message. -MOLST form signed; DNR Dispo: We will continue to follow the patient. Thank you for this consultative opportunity. Visit type - Emergency Visit Emergency Visit: Yes ED Registration Date: 09/05/19 Care time: The patient presented to the Emergency Department on the above date and was hospitalized for further evaluation of their emergent condition. - New Patient This patient is new to me today: Yes Date on this admission: 09/05/19 - Critical Care Critical Care patient: Yes Total Critical Care Time (in minutes): 36 Critical Care Statement: The care of this patient involved high complexity decision making to prevent further life threatening deterioration of the patient 's condition and/or to evaluate & treat vital organ system(s) failure or risk of failure. ATTENDING PHYSICIAN STATEMENT I saw and evaluated the patient. I reviewed the resident's note and discussed the case with the resident. I agree with the resident's findings and plan as documented. SUBJECTIVE: OBJECTIVE: ASSESSMENT AND PLAN:
[2019-09-05] MEDS ORDERED: INSULIN REGULAR HUMAN 100 UNITS/ML *VIAL IVPUSH ONE (15:26)
[2019-09-05] MEDS ORDERED: CALCIUM GLUCONATE 10% - 1,000 MG/10 ML VIAL IVPB ONE (15:27)
[2019-09-05] MEDS ORDERED: DEXTROSE 50%-WATER - 25 GM/50 ML VIAL IVPUSH ONE (15:27)
[2019-09-05] MEDS ORDERED: SODIUM POLYSTYRENE SULFONATE 15 GM/60 ML BOTTLE RC ONE (15:28)
[2019-09-05] MEDS ORDERED: NOREPINEPHRINE BITARTRATE 4,000 MCG in DEXTROSE 5%-WATER - 496 ML IV SCH (15:45)
[2019-09-05] MEDS ORDERED: NOREPINEPHRINE BITARTRATE 4 MG/4 ML ML IV ONE (15:46)
[2019-09-05 17:22] VITALS: BMI 20.2
--- NOTE | 2019-09-05 17:26 | EKG ---
Test Reason : Blood Pressure : / mmHG Vent. Rate : 075 BPM Atrial Rate : 075 BPM P-R Int : 244 ms QRS Dur : 168 ms QT Int : 526 ms P-R-T Axes : 063 -52 167 degrees QTc Int : 587 ms Atrial-sensed ventricular-paced rhythm with prolonged AV conduction ABNORMAL ECG WHEN COMPARED WITH ECG OF 25-AUG-2019 01:32, VENT. RATE HAS INCREASED BY 8 BPM BASELINE ARTIFACT Confirmed by PITA ARANDA, TOM ([id number]) on 09/05/2019 5:26:10 PM Referred By: Confirmed By:TOM LEMA MD
[2019-09-05] MEDS ORDERED: DEXTROSE 50%-WATER - 25 GM/50 ML VIAL ONE (18:58)
[2019-09-05] MEDS ORDERED: SODIUM POLYSTYRENE SULFONATE 15 GM/60 ML BOTTLE ONE (19:01)
--- NOTE | 2019-09-05 19:13 | CONSULT ---
Consult Consult Specialty:: Nephrology Reason for Consultation:: jennyfer and hyperkalemia - History of Present Illness Chief Complaint: sent in for hypoxia History of Present Illness: Pt is an 84 year old male with pmhx of jennyfer, htn, hld, dm, cad, a-fib, copd and chf who was send in for hypoxia and resp distress. he was recently discharged from the hospital. He was found to be in renal failure and I was called to evaluate him. He was hyptensive and required pressors in [facility]. He was on lasix for chf and volume overload. He was not given much volume in the ER. He is now in the ICU. His bp is improved. - History Source History Provided By: Medical Record - Past Medical History Cardio/Vascular: Yes: AFIB, CAD, CHF, HTN, Hyperlipdemia Pulmonary: Yes: COPD, Sleep Apnea Renal/: Yes: BPH Endocrine: Yes: Diabetes Mellitus - Past Surgical History Past Surgical History: Yes: Permanent Pacemaker, TURP - Alcohol/Substance Use Hx Alcohol Use: No - Smoking History Smoking history: Never smoked Have you smoked in the past 12 months: No Aproximately how many cigarettes per day: 0 - Social History Usual Living Arrangement: Alone ADL: Support Services History of Recent Travel: No Home Medications - Allergies Allergies/Adverse Reactions: Allergies Allergy/AdvReac Type Severity Reaction Status Date / Time No Known Drug Allergies Allergy Verified 08/24/19 21:17 - Home Medications Home Medications: Ambulatory Orders Atorvastatin Ca [Lipitor] 10 mg PO HS 08/25/19 Docusate Sodium [Colace -] 200 mg PO DAILY 08/25/19 Famotidine [Pepcid -] 40 mg PO DAILY 08/25/19 Insulin Detemir [Levemir Flextouch] 16 unit SQ HS 08/25/19 Ipratropium/Albuterol Sulfate [Iprat-Albut 0.5-3(2.5) mg/3 ml] 3 ml IH QID 08/25 Levothyroxine [Synthroid -] 75 mcg PO DAILY 08/25/19 Mag Hydrox/Al Hydrox/Simeth [Mylanta Oral Suspension -] 30 ml PO Q6H 08/25/19 Rivaroxaban [Xarelto] 20 mg PO DAILY 08/25/19 Amox-Tr/K Cl [Augmentin 500-125mg Tablet -] 1 tab PO BID@0800,1730 14 Days tablet 09/03/19 Carvedilol [Coreg -] 3.125 mg PO BID tablet 09/03/19 Furosemide [Lasix -] 20 mg PO DAILY tablet 09/03/19 Quetiapine Fumarate [Seroquel -] 75 mg PO BID tablet 09/03/19 Valsartan [Diovan] 40 mg PO DAILY tablet 09/03/19 Insulin Aspart [Novolog] See Protocol SQ ASDIR 09/05/19 Polyethylene Glycol 3350 [Miralax 119 gm Btl -] 17 gm PO DAILY 09/05/19 Family Medical History Family History: Denies Review of Systems - Review of Systems Constitutional: reports: Malaise Eyes: reports: No Symptoms HENT: reports: No Symptoms Neck: reports: No Symptoms Cardiovascular: reports: Shortness of Breath Respiratory: reports: SOB, SOB on Exertion Genitourinary: reports: No Symptoms Musculoskeletal: reports: No Symptoms Neurological: reports: No Symptoms Endocrine: reports: No Symptoms Hematology/Lymphatic: reports: No Symptoms Psychiatric: reports: No Symptoms Physical Exam Vital Signs: Vital Signs Temperature 100 F H 09/05/19 17:14 Pulse Rate 63 09/05/19 18:00 Respiratory Rate 34 H 09/05/19 18:00 Blood Pressure 89/62 L 09/05/19 18:00 O2 Sat by Pulse Oximetry (%) 96 09/05/19 17:56 Constitutional: Yes: Mild Distress Eyes: Yes: Conjunctiva Clear HENT: Yes: Atraumatic Cardiovascular: Yes: S1, S2 Respiratory: Yes: On Venti-Mask Gastrointestinal: Yes: Soft Renal/: Yes: Arroyo Present Musculoskeletal: Yes: Muscle Weakness Edema: No Integumentary: Yes: WNL Neurological: Yes: Confusion Labs: CBC, BMP 09/05/19 13:00 09/05/19 13:00 Imaging - Results Chest X-ray: Report Reviewed Problem List - Problems (1) JENNYFER (acute kidney injury) Code(s): N17.9 - ACUTE KIDNEY FAILURE, UNSPECIFIED (2) Elevated troponin Code(s): R79.89 - OTHER SPECIFIED ABNORMAL FINDINGS OF BLOOD CHEMISTRY (3) Hyperkalemia Code(s): E87.5 - HYPERKALEMIA (4) Lactic acidosis Code(s): E87.2 - ACIDOSIS Assessment/Plan Current Medications Generic Name Dose Route Start Last Admin Trade Name Ethan PRN Reason Stop Dose Admin Norepinephrine Bitartrate 4, 500 mls @ 37.5 mls/hr 09/05/19 15:45 09/05/19 16 :50 000 mcg/ Dextrose IV 8 mcg/min TITR AYDIN 60 mls/hr Administration Protocol 5 MCG/MIN Piperacillin Sod/Tazobactam 50 mls @ 100 mls/hr 09/05/19 21:00 Sod 2.25 gm/ Dextrose IVPB Q6H-IV AYDIN Protocol Insulin Aspart 1 vial 09/05/19 22:00 Novolog Vial Sliding Scale - SQ ACHS AYDIN Protocol Vancomycin HCl 1,000 mg 09/06/19 10:00 Vancomycin (Pre-Docked) IVPB DAILY AYDIN Protocol Vancomycin HCl 1,000 mg 09/06/19 15:00 Vancomycin (Pre-Docked) IVPB 09/06/19 15:01 ONCE ONE Impression JENNYFER hyperkalemia sepsis HLD DM CAD s/p 7 stents afib on Xarelto systolic CHF CKD COPD on home o2 hypothyroidism schizophrenia positive troponin lactic acidosis Plan - cont pressors to map 65 - repeat labs to assess potassium - admit to ICU - follow cardiac enzymes - cardio eval - repeat cxr in am - monitor pulse ox - avoid nsaids - discussed plan with ICU team
[2019-09-05] MEDS ORDERED: FLU VACCINE QUAD 60 MCG/0.5 ML (MDV 19-20) IM ONE (20:15)
[2019-09-05] MEDS ORDERED: PNEUMOC 13-VAL CONJ-DIP CRM/PF 0.5 ML DISP.SYRIN IM ONE (20:15)
[2019-09-05] MEDS ORDERED: PIPERACILLIN/TAZOB 2.25 GM 2.25 GM in DEXTROSE 5%-WATER - 50 ML IVPB SCH (21:00)
[2019-09-05] MEDS ORDERED: DEXTROSE 5%-WATER - 50 ML IVPB ONE (21:04)
[2019-09-05] MEDS ORDERED: PIPERACILLIN/TAZOBACTAM 2.25 GM VIAL IVPB ONE (21:04)
[2019-09-05 21:13] LABS: BLOOD UREA NITROGEN 47.9 mg/dL (7-18); CALCIUM 8.4 mg/dL (8.5-10.1); CREATININE 2.8 mg/dL (0.55-1.3); POTASSIUM 5.4 mmol/L (3.5-5.1)
[2019-09-05] MEDS ORDERED: INSULIN SLIDING SCALE (NOVOLOG) 1 VIAL SQ SCH (22:00)
[2019-09-05] MEDS ORDERED: MORPHINE SULFATE/0.9% NACL/PF 100 MG/100 ML BAG IVPB SCH ×2 (22:15→22:45)
--- NOTE | 2019-09-06 03:56 | PN ---
Progress Note (short form) - Note Progress Note: Note Patient seen and examined at bedside. Unresponsive to stimulation and name. Absent breath sounds, heart sounds, pupillary and corneal reflexes. Patient had nonpalpable carotid and radial pulses bilaterally. Time of : 09/06/2018, 3: 43 A.M. Patient's daughter was contacted, spoke with her over the phone.
[2019-09-06 04:33] VITALS: BP 98/61; PULSE 60; TEMP 97.3
[2019-09-06] MEDS ORDERED: VANCOMYCIN 1 GM in D5W (PRE-DOCKED) 1,000 MG/250 ML IVPB SCH (10:00)
[2019-09-06] MEDS ORDERED: VANCOMYCIN 1 GM in D5W (PRE-DOCKED) 1,000 MG/250 ML IVPB ONE (15:00)
== END 2019-09-06 03:43 | disposition expired | DRG 871 ==
LOC: JER 11:53 → JERBED 14:02 → JICU 18:35
PROVIDERS: ADMIT Family Medicine; ATTEND Family Medicine
PROC: 06HM33Z Insertion of Infusion Device into Right Femoral Vein, Percutaneous Approach (ICD-10-PCS; principal; 2019-09-05)
PROC: B51BZZA Fluoroscopy of Right Lower Extremity Veins, Guidance (ICD-10-PCS; 2019-09-05)
DX: A41.89 Other specified sepsis (principal); J18.9 Pneumonia, unspecified organism; J96.01 Acute respiratory failure with hypoxia; I50.23 Acute on chronic systolic (congestive) heart failure; R65.21 Severe sepsis with septic shock; N17.9 Acute kidney failure, unspecified; E87.2 Acidosis; I48.19 Other persistent atrial fibrillation; I13.0 Hypertensive heart and chronic kidney disease with heart failure and stage 1 through stage 4 chronic kidney disease, or unspecified chronic kidney disease; N18.9 Chronic kidney disease, unspecified; E11.22 Type 2 diabetes mellitus with diabetic chronic kidney disease; I95.9 Hypotension, unspecified; I25.10 Atherosclerotic heart disease of native coronary artery without angina pectoris; J44.9 Chronic obstructive pulmonary disease, unspecified; E78.5 Hyperlipidemia, unspecified; N40.1 Benign prostatic hyperplasia with lower urinary tract symptoms; R33.8 Other retention of urine; R79.89 Other specified abnormal findings of blood chemistry; G47.30 Sleep apnea, unspecified; E03.9 Hypothyroidism, unspecified; E87.5 Hyperkalemia; F32.9 Major depressive disorder, single episode, unspecified; F20.9 Schizophrenia, unspecified; Z95.0 Presence of cardiac pacemaker; Z87.891 Personal history of nicotine dependence; Z99.81 Dependence on supplemental oxygen; Z95.5 Presence of coronary angioplasty implant and graft; Z85.828 Personal history of other malignant neoplasm of skin
CPT/HCPCS: 36415; 36600; 71045-TC-FY; 80048; 80053; 82375; 82803; 82962; 83050; 83605; 83880; 84484; 85025; 85610; 85730; 86850; 86900; 86901; 87040; 87804; 93005; 93010; 94660; 99285-25; J0131